=== PATIENT | female | born 1935 | race Caucasian/White ===

== ENCOUNTER 2020-01-26 11:26 | Emergency (ER) | payer MEDICARE, SELFPAY ==
--- NOTE | ~2020-01-26 | XR_ITS ---
EXAMINATION: XR chest 1V portable DATE: 01/26/2020 12:09 INDICATION: Confusion. Altered mental status. TECHNIQUE: frontal view of the chest was obtained. COMPARISON: Chest radiograph dated 01/28/[address] dated 12/04/2017 FINDINGS: Eventration along the left hemidiaphragm. Unchanged mild linear lingular discoid atelectasis/scarring at the lateral left lower lung zone. Small calcified nodule at the left apex consistent with old gra nulomatous disease. No other airspace opacities, pulmonary edema, pleural effusion or pneumothorax. T he cardiomediastinal silhouette is within normal limits for AP technique. Lower thoracic dextrocurvat ure with moderate spondylosis. IMPRESSION: 1. Chronic mild lingular atelectasis/scarring. No other acute cardiopulmonary disease. Reviewed, dictated and finalized at location A. IMPRESSION: 1. Chronic mild lingular atelectasis/scarring. No other acute cardiopulmonary d isease.
--- NOTE | ~2020-01-26 | CT_ITS ---
EXAMINATION: CT brain wo con DATE: 01/26/2020 12:09 INDICATION: Altered mental state. Confusion. Garbled speech. TECHNIQUE: Computed tomography (CT) of the head was performed without intravenous contrast. The mA wa s adjusted according to patient size. Iterative reconstruction technique was employed. Exam dose: 60 5.33 mGy-cm total exam DLP. COMPARISON: None FINDINGS: Bilateral chronic small chronic lacunar infarcts in the region of the anterior limb of each internal capsule. No recent cerebrovascular accident is evident, but CT is not sensitive for detecti on of hyperacute ischemic cerebrovascular accident. There is nonspecific diminished attenuation of the subcortical and periventricular cerebral white mat ter. There are bilateral carotid siphon internal carotid artery calcifications. No intracranial mass lesion or hemorrhage is evident. No midline shift or mass effect. There is moderate cerebellar and cerebral atrophy. No subdural or epidural hematoma. No fracture or bone destruction of the cranial vault. The mastoid air cells and included paranasal sinuses are clear. IMPRESSION: Small chronic lacunar infarcts in the region of the anterior limb of each internal capsu le Cerebral atherosclerosis and chronic small vessel ischemic changes of cerebral white matter No acute intracranial finding is suggested Reviewed, dictated and finalized at Location A. Reviewed, dictated and finalized at location A. IMPRESSION: Small chronic lacunar infarcts in the region of the anterior limb of each internal capsule Cerebral atherosclerosis and chronic small vessel ischemic changes of cerebral white matter No acute intracranial finding is suggested
--- NOTE | 2020-01-26 11:36 | ECG_ITS ---
Measurements Intervals [place] Rate: 61 P: 67 NE: 164 QRS: 45 QRSD: 103 T: 42 QT: 391 QTc: 396 Interpretive Statements SINUS RHYTHM EARLY PRECORDIAL R/S TRANSITION BASELINE ARTIFACT- I, II, III, AVR, AVL, AVF BORDERLINE ECG Electronically Signed On 01-26-2020 12:31:48 CDT by Bridger Mcfarlane D.O.
--- NOTE | 2020-01-26 11:40 | ED.AMS ---
HPI - Altered Mental Status General Chief Complaint: Altered Mental Status Stated Complaint: Ambulance History of Present Illness HPI narrative: Luanne was brought to the ED by EMS for AMS. She was last seen normal at 2100 last night (almost 15 hours ago). Her daughter found her this morning and she was not herself. She is usually A&Ox3. However, she was not making any sense, only knew her first name, clothes were on backwards, objections were out of place and there were many pills on the floor. (history obtained through EMS and calls to the daughter by nursing) PMH: HTN, HLD, Aortic stenosis, osteoporosis, SVT, UTI, GERD, Related Data Home Medications Medication Instructions Recorded Confirmed chlordiazepoxide HCl 5 mg PO TID PRN 01/26/20 01/26/20 gabapentin 300 mg PO QPM 01/26/20 01/26/20 gabapentin 300 mg PO TID 01/26/20 01/26/20 metoprolol tartrate 25 mg PO BID 01/26/20 01/26/20 mirtazapine 30 mg PO HS 01/26/20 01/26/20 Allergies Allergy/AdvReac Type Severity Reaction Status Date / Time No Known Allergies Allergy Verified 01/26/20 11:34 Review of Systems Review of Systems: ROS unobtainable: Yes unobtainable due to mental status PMFSH Social History Social History Gender identity (if verbalized by the patient): Female Exam Const: Nutritional Appearance: average body habitus Orientation/consciousness: confusion Other: No acute distress. Answers questions poorly. Usually just responds with her name. Only knows first name. Does not know last name, date, location but did state she felt good multiple times. HENMT: Head: normocephalic and atraumatic Ears: external ears normal General nose exam: Normal external nose present Mouth: Yes Normal oral and palatal mucosa present Eyes: General: appearance normal, both eyes and all related structures Neck: Neck: normal visual inspection Other: Looks around the room without difficulty Chest: Other: Normal inspection Resp: Effort & Inspection: normal respiratory effort and able to speak in complete sentences Other: Lungs clear to auscultation bilterally, no tachypnea or coughing Cardio: Jugular venous distension: no JVD Rate: regular rate Rhythm: regular rhythm Other: No pitting edema GI: Other: Bowel sounds present, No TTP : Other: No CVA tenderness Back/Spine/Pelvis: Back: no CVA tenderness Other: normal back exam Skin: General skin exam: normal color and no rashes or lesions noted Neuro: General: oriented to person (Only knows first name ) Other: NIH: LOC: Responsive and follows directions but answers make little sense LOC questions: Does not know full name or age LOC Commands: Follows both commands (eye opening and closing and squeezing hands) correctly Best Gaze: Normal Visual: woul not comply with exam due to confusion Facial Palsy: Symmetrical movments Motor arm: no drift Motor leg: no drift Limb Ataxia: would not follow command Sensory: No sensory loss Best langauge: mild to moderate sensory aphasia 1 Dysarthira: mild to moderate dysarthria 1 Neglect: no abnormality Extrem: General: normal to inspection Psych: Appearance: other (very confused ) Course Course Emergency Course: Luanne was seen and evaluated. POC glucose in the field was 133. Ordered labs as below, EKG, CT head and XR chest. EKG showed NSR with a rate of 61, normal axis, No ST elevation/depression CT showed no acute process. Labs and CXR were largly unremarkable except for UDS being positive for benzos. Spoke with Dr. Luna of vascular neurology that recommended transfer by ground EMS for neurology workup. Large vessel occlusion was thought to be very unlikely with BP quickly coming down to 142/78 and no hemiparesis. For this reason he will be seen by the hospitalist and general neurology for AMS. [facility] transfer center called back at [address] Stone is the accepting. I spoke with the daughter Yanira
[2020-01-26 11:43] VITALS: BP 157/90; PULSE 71; RESP 16; TEMP 37.1; O2SAT 96
[2020-01-26 12:00] LABS: Base Excess ABG 2.5 mmol/L (0-2); HCO3 ABG 27.6 mmol/L (23-29); Oxygen Content ABG 16.5 %vol (16.0-22.0); Oxygen Saturation ABG 96.3 % (95-97); PCO2 ABG 44.7 mmHg (35-45); PO2 ABG 77.9 mmHg (75-85); Total Hemoglobin 12.3 g/dL; pH ABG 7.41 (7.35-7.45)
[2020-01-26 12:02] LABS: Basophils Absolute Auto 0.05 K/mm3 (0.00-0.10); Basophils Percent Auto 0.5 % (0.0-1.0); Device ROOM AIR; Eosinophils Absolute Auto 0.11 K/mm3 (0.02-0.50); Eosinophils Percent Auto 1.1 % (1.0-6.0); Hematocrit 36.9 % (35.0-42.0); Hemoglobin 11.9 g/dL (11.7-13.8); Immature Granulocyte Absolute 0.04 K/mm3 (0.00-0.00); Immature Granulocyte Percent A 0.4 % (0.0-0.0); Lymphocytes Absolute Auto 1.74 K/mm3 (1.10-4.50); Lymphocytes Percent Auto 17.1 % (18.0-42.0); Mean Corpuscular HGB Conc 32.2 g/dL (32.0-36.0); Mean Corpuscular Hemoglobin 29.6 pg (27.0-31.0); Mean Corpuscular Volume 91.8 fL (78.0-102.0); Mean Platelet Volume 10.5 fl (9.2-11.8); Modified Allen's Test Pass; Monocytes Percent Auto 4.9 % (2.0-11.0); Neutrophils Absolute Auto 7.7 K/mm3 (1.7-7.2); Platelet Count Result 264 K/mm3 (150-420); Red Blood Count 4.02 M/mm3 (4.20-5.40); Red Cell Distribution Width 14.1 % (11.6-14.4); Site Drawn LEFT RADIAL; White Blood Count 10.2 K/mm3 (4.8-10.8)
[2020-01-26 12:13] LABS: Prothrombin Time 9.9 Seconds (9.64-11.0)
[2020-01-26 12:24] LABS: Lactic Acid Reflex 1.3 mmol/L (0.4-2.0)
--- NOTE | 2020-01-26 12:24 | PC.NURSE ---
NIHSS 8 upon arrival. NIHSS is 2 at this time. no neglect noted on right at this time. tolerated straight cath well. rails ^ bilat. call benites within reach
[2020-01-26 12:25] LABS: Appearance Urine Clear (Clear); Bilirubin Urine Negative (Negative); Color Urine Yellow (Yellow); Glucose Urine UA Negative (Negative); Ketones Urine Negative (Negative); Leukocyte Esterase Ur Negative LEU/UL (Negative); Nitrate Urine Negative (Negative); Protein Urine Negative (Negative); Urobilinogen Urine 0.2 mg/dL (0.2-1.0); pH Urine 6.5 (5.0-8.0)
[2020-01-26 12:27] VITALS: BP 142/78; PULSE 65; RESP 16; O2SAT 98
[2020-01-26 12:27] LABS: Alanine Aminotransferase 23 U/L (14-59); Albumin Level 3.8 g/dL (3.4-5.0); Alkaline Phosphatase 56 U/L (46-116); Ammonia < 10 umol/L (11-32); Anion Gap 9.6 mmol/L (7-16); Aspartate Amino Transferase 21 U/L (15-37); Bilirubin,Total 0.2 mg/dL (0.00-1.00); Blood Urea Nitrogen 10 mg/dL (7-18); Calcium 8.9 mg/dL (8.5-10.1); Carbon Dioxide 33 mmol/L (21-32); Chloride 105 mmol/L (98-108); Creatine Kinase 88 U/L (26-192); Estimated CRCL calculation 46 ml/min; Estimated Glomerular Filt Rate 60; Glucose 102 mg/dL (70-99); Osmolality Calculated 297 mOsm/kg (285-295); Potassium 3.6 mmol/L (3.5-5.1); Sodium 144 mmol/L (136-145); Total Protein 6.9 g/dL (6.4-8.2); Troponin I 0.02 ng/mL (0.00-0.056)
[2020-01-26 12:28] LABS: Acetaminophen 0 ug/mL (10-30); Ethanol < 3 mg/dL (0-6)
[2020-01-26 12:30] LABS: Add Urine Microscopic? YES; Blood Urine Trace-Intact (Negative); RBC Urine None seen /hpf (0-2)
[2020-01-26 12:31] LABS: Bacteria Urine None seen /hpf; Squamous Epithelial Cell Urine Rare /hpf (Few); WBC Urine None seen /hpf (0-3)
[2020-01-26 12:35] LABS: Amphetamine Screen Urine Negative (Negative); Barbiturate Screen Urine Negative (Negative); Benzodiazepines Screen Urine Positive (Negative); Cannabinoid Screen Urine Negative (Negative); Cocaine Screen Urine Negative (Negative); Methadone Screen Urine Negative (Negative); Opiate Screen Urine Negative (Negative); Phencyclidine Screen Urine Negative (Negative)
--- NOTE | 2020-01-26 12:38 | PC.NURSE ---
erp speaking with pts daughters x3 at front entrance
--- NOTE | 2020-01-26 13:02 | PC.NURSE ---
pt repositioned. watching TV at this time. requestiong lunch. erp declined until neuro consult. rails ^ bial.t call benites within reach
--- NOTE | 2020-01-26 13:17 | PC.NURSE ---
erp on phone with daughters discussing plan of care. transfer to [facility] in progress.
[2020-01-26 13:26] VITALS: BP 141/74; PULSE 75; RESP 18; TEMP 36.7; O2SAT 97
--- NOTE | 2020-01-26 13:27 | PC.NURSE ---
pt voided without difficulty per [facility]. transferred well with minimal assist. sitting up in bed eating lunch at this time. no difficulty swallowing. no cough noted.
--- NOTE | 2020-01-26 14:05 | PC.NURSE ---
report called to rn at [facility]. family notified. ems called out. no change in pt condition...remains confused. vss.
[2020-01-26 14:07] VITALS: BP 145/86; PULSE 74; RESP 16; O2SAT 99
[2020-01-26 14:30] VITALS: BP 145/86; PULSE 74; RESP 16; O2SAT 99
== END 2020-01-26 14:30 | disposition short-term general hospital (02) ==
PROVIDERS: Emergency Provider Family Medicine; PCP Internal Medicine
DX: R41.82 Altered mental status, unspecified (principal); I10 Essential (primary) hypertension; E78.5 Hyperlipidemia, unspecified; M81.0 Age-related osteoporosis without current pathological fracture; Z79.899 Other long term (current) drug therapy
CPT/HCPCS: 36415; 36600; 51701; 70450; 71045; 80053; 80307; 81001; 82140; 82550; 82805; 83605; 84443; 84484; 85025; 85610; 87040; 93005; 99283; 99285

== ENCOUNTER 2020-05-31 12:42 | Outpatient (CLI) | payer MEDICARE, SELFPAY ==
[2020-05-31] MEDS: DENOSUMAB 60 MG/ML SYRINGE SUB-Q (13:00)
== END 2020-05-31 12:43 | disposition home or self-care (01) ==
LOC: CHSTREATRM 12:47
PROVIDERS: PCP Internal Medicine; Visit Provider Internal Medicine
DX: M81.0 Age-related osteoporosis without current pathological fracture (principal)
CPT/HCPCS: 96372; J0897

== ENCOUNTER 2020-07-15 08:53 | Emergency (ER) | payer MEDICARE, SELFPAY ==
[2020-07-15 09:22] VITALS: BP 110/60; PULSE 64; RESP 16; TEMP 36.6; O2SAT 98
[2020-07-15 09:44] LABS: Add Urine Microscopic? YES; Appearance Urine Clear (Clear); Bilirubin Urine Negative (Negative); Blood Urine 3+ (Negative); Color Urine Red (Yellow); Glucose Urine UA Negative (Negative); Ketones Urine Negative (Negative); Leukocyte Esterase Ur 3+ (Negative); Nitrate Urine Positive (Negative); Protein Urine 2+ (Negative); Specific Grav Ur <= 1.005 (1.010-1.020); Urobilinogen Urine 0.2 mg/dL (0.2-1.0); pH Urine 6.5 (5.0-8.0)
[2020-07-15 09:49] LABS: Bacteria Urine 4+ /hpf; RBC Urine >75 /hpf (0-2); Squamous Epithelial Cell Urine Few /hpf (Few); WBC Urine >75 /hpf (0-3)
--- NOTE | 2020-07-15 09:55 | ED.FEMALEGU ---
HPI - Female Genitourinary General Chief complaint: Urogenital-Female Stated complaint: possible bladder infection Source: patient Mode of arrival: ambulatory History of Present Illness HPI Narrative: this is an 85-year-old female with symptoms of dysuria with an episode of hematuria with suprapubic pressure with no flank pain no fever chills no nausea vomiting has a history of hypertension well controlled. Currently there is no shortness of breath no chest pain or pressure no diarrhea constipation. MD elicited complaint: dysuria Severity: mild Female Urogenital Radiation: Non-Radiating Urinary symptoms: Dysuria and Frequency Associated symptoms: denies other symptoms Related Data Home Medications Medication Instructions Recorded Confirmed chlordiazepoxide HCl 5 mg PO TID PRN 01/26/20 07/15/20 gabapentin [Neurontin] 300 mg PO QPM 01/26/20 07/15/20 metoprolol tartrate 25 mg PO BID 01/26/20 07/15/20 mirtazapine [Remeron] 30 mg PO HS 01/26/20 07/15/20 Allergies Allergy/AdvReac Type Severity Reaction Status Date / Time No Known Allergies Allergy Verified 01/26/20 11:34 Review of Systems Review of Systems: All systems reviewed & are unremarkable except as noted in HPI and below PMFSH Past Medical History Medical History HTN (hypertension) Social History Social History Gender identity (if verbalized by the patient): Female Exam Const: General: no acute distress and alert Orientation/consciousness: patient oriented x3 HENMT: Head: normal to inspection Eyes: Conjunctivae: conjunctivae normal Pupils: Equal, round and reactive pupils present EOM: EOMs intact bilaterally Direct Ophthalmoscopy: no photophobia Neck: Neck: normal visual inspection, no lymphadenopathy and no meningeal signs Chest: Chest palpation & inspection: normal inspection of the chest Resp: Effort & Inspection: normal respiratory effort Cardio: Rate: regular rate Rhythm: regular rhythm GI: GI Palp: Yes Soft to palpation Other: suprapubic pain with palpation : General: Yes no CVA tenderness Urinary Catheter: Urinary Catheter: patent and draining and urine cloudy Back/Spine/Pelvis: Back: no CVA tenderness Skin: General skin exam: normal color Rashes: no rashes Neuro: General: patient oriented x3 Extrem: General: normal to inspection Psych: Mental Status: mental status grossly normal Affect: normal affect Course Course Emergency Course: reassessment patient appears comfortable some mild discomfort suprapubic area with no flank pain no fever chills patient has you had urinary tract infection and send antibiotics to her pharmacy. Vital Signs Vital signs: Vital Signs Temperature 36.6 C 07/15/20 09:22 Pulse Rate 64 07/15/20 09:22 Respiratory Rate 16 07/15/20 09:22 Blood Pressure 110/60 07/15/20 09:22 Pulse Oximetry 98 07/15/20 09:22 Temperature 36.6 C 07/15/20 09:22 Pulse Rate 64 07/15/20 09:22 Respiratory Rate 16 07/15/20 09:22 Blood Pressure 110/60 07/15/20 09:22 Pulse Oximetry 98 07/15/20 09:22 MDM - Female Genitourinary Lab Data Labs: Lab Results 07/15/20 Range/Units 09:40 Urine Color Red A (Yellow) Urine Appearance Clear (Clear) Urine pH 6.5 (5.0-8.0) Ur Specific [place] <= 1.005 L (1.010-1.020) Urine Protein 2+ H (Negative) Urine Glucose (UA) Negative (Negative) Urine Ketones Negative (Negative) Ur Blood (Man) 3+ H (Negative) Urine Nitrate Positive H (Negative) Urine Bilirubin Negative (Negative) Urine Urobilinogen 0.2 (0.2-1.0) mg/dL Ur Leukocyte Esterase 3+ H (Negative) Urine RBC >75 H (0-2) /hpf Urine WBC >75 H (0-3) /hpf Ur Squamous Epith Cells Few (Few) /hpf Urine Bacteria 4+ H (None) /hpf Critical Care Time Critical Care Time Critical Care Time: No Discharge Plan Dischar
[2020-07-15 10:12] VITALS: BP 108/70; PULSE 70; RESP 16; TEMP 36.2; O2SAT 95
== END 2020-07-15 10:13 | disposition home or self-care (01) ==
PROVIDERS: Emergency Provider Emergency Medicine; PCP Internal Medicine
DX: N39.0 Urinary tract infection, site not specified (principal); I10 Essential (primary) hypertension
CPT/HCPCS: 81001; 99283

== ENCOUNTER 2020-08-06 09:12 | Outpatient (CLI) | payer MEDICARE, SELFPAY | END 2020-08-06 09:13 | disposition home or self-care (01) | LOC: CHSLAB 09:14 | PROVIDERS: PCP Internal Medicine; Visit Provider Internal Medicine | DX: R19.7 Diarrhea, unspecified (principal) | CPT/HCPCS: 87324 ==

== ENCOUNTER 2020-09-13 07:08 | Outpatient (CLI) | payer MEDICARE, SELFPAY ==
[2020-09-13 07:19] LABS: Hematocrit 40.1 % (35.0-42.0); Hemoglobin 12.6 g/dL (11.7-13.8); Mean Corpuscular HGB Conc 31.4 g/dL (32.0-36.0); Mean Corpuscular Hemoglobin 29.4 pg (27.0-31.0); Mean Corpuscular Volume 93.7 fL (78.0-102.0); Mean Platelet Volume 10.1 fl (9.2-11.8); Platelet Count Result 241 K/mm3 (150-420); Red Blood Count 4.28 M/mm3 (4.20-5.40); Red Cell Distribution Width 14.2 % (11.6-14.4); White Blood Count 9.5 K/mm3 (4.8-10.8)
[2020-09-13 08:15] LABS: Total Cells Counted 100
[2020-09-13 08:16] LABS: Atypical Lymphocytes Present; Band Neutrophils Percent 0 % (0-6); Basophils Percent Manual 0 % (0-1); Eosinophils Percent Manual 19 % (1-6); Monocytes Absolute Manual 0.66 K/mm3 (0.1-0.90); Monocytes Percent Manual 7 % (3-9); Neutrophils Percent Manual 39 % (46-73)
[2020-09-13 08:17] LABS: Lymphocytes Absolute Manual 3.32 K/mm3 (1.1-4.5); Lymphocytes Percent Manual 35 % (18-44)
[2020-09-13 08:54] LABS: Alanine Aminotransferase 22 U/L (14-59); Albumin Level 3.9 g/dL (3.4-5.0); Alkaline Phosphatase 60 U/L (46-116); Anion Gap 9 mmol/L (8-16); Aspartate Amino Transferase 18 U/L (15-37); Bilirubin,Total 0.3 mg/dL (0.00-1.00); Blood Urea Nitrogen 13 mg/dL (7-18); Carbon Dioxide 29 mmol/L (21-32); Chloride 107 mmol/L (98-108); Cholesterol 150 mg/dL (0-200); Creatine Kinase 103 U/L (26-192); Estimated Glomerular Filt Rate > 60; Glucose 96 mg/dL (70-99); HDL Direct 71 mg/dL (40-60); LDL Cholesterol Calculated 59 mg/dL (<130); Osmolality Calculated 300 mOsm/kg (285-295); Potassium 3.9 mmol/L (3.5-5.1); Sodium 145 mmol/L (136-145); Total Protein 6.7 g/dL (6.4-8.2); Triglycerides 100 mg/dL (0-150); Vitamin B12 885 pg/mL (193-986)
[2020-09-13 09:30] LABS: Platelet Estimate Adequate (Adequate)
[2020-09-13 10:26] LABS: Add Urine Microscopic? YES; Appearance Urine Cloudy (Clear); Bilirubin Urine Negative (Negative); Blood Urine 1+ (Negative); Color Urine Straw (Yellow); Glucose Urine UA Negative (Negative); Ketones Urine Negative (Negative); Leukocyte Esterase Ur 3+ (Negative); Nitrate Urine Positive (Negative); Protein Urine Trace (Negative); Specific Grav Ur 1.015 (1.010-1.020); Urobilinogen Urine 0.2 mg/dL (0.2-1.0); pH Urine 6.5 (5.0-8.0)
[2020-09-13 10:35] LABS: Bacteria Urine 1+ /hpf; RBC Urine None seen /hpf (0-2); Squamous Epithelial Cell Urine Few /hpf (Few); WBC Urine 16-20 /hpf (0-3)
[2020-09-19 13:09] LABS: Vitamin D 25 Hydroxy 27 ng/mL (30-100)
== END 2020-09-13 07:09 | disposition home or self-care (01) ==
LOC: CHSLAB 07:10
PROVIDERS: PCP Internal Medicine; Visit Provider Internal Medicine
DX: E78.2 Mixed hyperlipidemia (principal); I10 Essential (primary) hypertension; M81.0 Age-related osteoporosis without current pathological fracture; I47.1 Supraventricular tachycardia; E53.8 Deficiency of other specified B group vitamins; N30.00 Acute cystitis without hematuria
CPT/HCPCS: 36415; 80053; 80061; 81001; 82306; 82550; 82607; 85025; 87077; 87086; 87088; 87186

== ENCOUNTER 2020-11-15 11:28 | Outpatient (CLI) | payer MEDICARE, SELFPAY ==
--- NOTE | ~2020-11-15 | XR_ITS ---
EXAMINATION: XR chest 2V DATE: 11/15/2020 12:28 INDICATION: Left chest pain. TECHNIQUE: Frontal and lateral views of the chest were obtained. COMPARISON: Chest single view 01/26/2020 FINDINGS: There is mild atelectasis in left lower lung zone. No pleural effusion or pneumothorax. Car diomegaly is noted. IMPRESSION: 1. Mild atelectasis in left lower lung zone. 2. Cardiomegaly. Reviewed, dictated and finalized at location A. E HAND
[2020-11-15 11:45] LABS: Basophils Absolute Auto 0.05 K/mm3 (0.00-0.10); Basophils Percent Auto 0.6 % (0.0-1.0); Eosinophils Absolute Auto 0.72 K/mm3 (0.02-0.50); Eosinophils Percent Auto 8.1 % (1.0-6.0); Hematocrit 36.1 % (35.0-42.0); Hemoglobin 11.4 g/dL (11.7-13.8); Immature Granulocyte Absolute 0.03 K/mm3 (0.00-0.00); Immature Granulocyte Percent A 0.3 % (0.0-0.0); Lymphocytes Absolute Auto 2.76 K/mm3 (1.10-4.50); Lymphocytes Percent Auto 30.9 % (18.0-42.0); Mean Corpuscular HGB Conc 31.6 g/dL (32.0-36.0); Mean Corpuscular Hemoglobin 29.4 pg (27.0-31.0); Mean Platelet Volume 9.7 fl (9.2-11.8); Monocytes Absolute Auto 0.66 K/mm3 (0.10-0.90); Monocytes Percent Auto 7.4 % (2.0-11.0); Neutrophils Absolute Auto 4.7 K/mm3 (1.7-7.2); Neutrophils Percent Auto 52.7 % (50.0-70.0); Platelet Count Result 292 K/mm3 (150-420); Red Blood Count 3.88 M/mm3 (4.20-5.40); Red Cell Distribution Width 14.4 % (11.6-14.4); White Blood Count 8.9 K/mm3 (4.8-10.8)
--- NOTE | 2020-11-15 11:52 | ECG_ITS ---
Measurements Intervals [place] Rate: 68 P: 76 NH: 155 QRS: 42 QRSD: 106 T: 43 QT: 367 QTc: 393 Interpretive Statements SINUS RHYTHM ST ELEVATION IN LATERAL LEADS- PROBABLY EARLY REPOLARIZATION BASELINE ARTIFACT- I, II, III, AVF BORDERLINE ECG Electronically Signed On 11-15-2020 12:07:36 [employer] by Bridger Mcfarlane D.O.
[2020-11-15 12:10] LABS: Alanine Aminotransferase 26 U/L (14-59); Albumin Level 3.5 g/dL (3.4-5.0); Alkaline Phosphatase 50 U/L (46-116); Anion Gap 7 mmol/L (8-16); Aspartate Amino Transferase 24 U/L (15-37); Bilirubin,Total 0.3 mg/dL (0.00-1.00); Blood Urea Nitrogen 14 mg/dL (7-18); Calcium 9.8 mg/dL (8.5-10.1); Carbon Dioxide 32 mmol/L (21-32); Chloride 104 mmol/L (98-108); Creatine Kinase 179 U/L (26-192); Estimated Glomerular Filt Rate 52; Glucose 95 mg/dL (70-99); Osmolality Calculated 296 mOsm/kg (285-295); Potassium 4.1 mmol/L (3.5-5.1); Sodium 143 mmol/L (136-145); Total Protein 6.6 g/dL (6.4-8.2); Troponin I 8.1 ng/L (0.00-60.4)
[2020-11-17 20:39] LABS: H pylori, Urea Breath NOT DETECTED (NOT DETECTED)
== END 2020-11-15 11:29 | disposition home or self-care (01) ==
LOC: CHSLAB 11:31
PROVIDERS: PCP Internal Medicine; Visit Provider Internal Medicine
DX: R07.9 Chest pain, unspecified (principal); R10.13 Epigastric pain
CPT/HCPCS: 36415; 71046; 80053; 82550; 82553; 83013; 84484; 85025; 93005

== ENCOUNTER 2020-12-04 13:11 | Outpatient (CLI) | payer MEDICARE, SELFPAY ==
--- NOTE | 2020-12-04 13:20 | PC.NURSE ---
Here for SQ injection, administered and tolerated well, ambulatory upon discharge to home
[2020-12-04] MEDS: DENOSUMAB 60 MG/ML SYRINGE SUB-Q (13:25)
== END 2020-12-04 13:12 | disposition home or self-care (01) ==
LOC: CHSTREATRM 13:14
PROVIDERS: PCP Internal Medicine; Visit Provider Internal Medicine
DX: M81.0 Age-related osteoporosis without current pathological fracture (principal)
CPT/HCPCS: 96372; J0897

== ENCOUNTER 2021-02-17 07:34 | Outpatient (CLI) | payer MEDICARE, SELFPAY ==
[2021-02-17 07:50] LABS: Basophils Absolute Auto 0.04 K/mm3 (0.00-0.10); Basophils Percent Auto 0.5 % (0.0-1.0); Eosinophils Absolute Auto 0.73 K/mm3 (0.02-0.50); Eosinophils Percent Auto 8.7 % (1.0-6.0); Hematocrit 39.9 % (35.0-42.0); Hemoglobin 12.4 g/dL (11.7-13.8); Immature Granulocyte Absolute 0.02 K/mm3 (0.00-0.00); Immature Granulocyte Percent A 0.2 % (0.0-0.0); Lymphocytes Absolute Auto 2.77 K/mm3 (1.10-4.50); Mean Corpuscular HGB Conc 31.1 g/dL (32.0-36.0); Mean Corpuscular Hemoglobin 28.8 pg (27.0-31.0); Mean Corpuscular Volume 92.6 fL (78.0-102.0); Mean Platelet Volume 10.9 fl (9.2-11.8); Monocytes Absolute Auto 0.58 K/mm3 (0.10-0.90); Monocytes Percent Auto 6.9 % (2.0-11.0); Neutrophils Absolute Auto 4.3 K/mm3 (1.7-7.2); Neutrophils Percent Auto 50.7 % (50.0-70.0); Platelet Count Result 244 K/mm3 (150-420); Red Blood Count 4.31 M/mm3 (4.20-5.40); Red Cell Distribution Width 14.6 % (11.6-14.4); White Blood Count 8.4 K/mm3 (4.8-10.8)
[2021-02-17 08:00] LABS: Appearance Urine Sl Cloudy (Clear); Color Urine Light Yellow (Yellow); Glucose Urine UA Negative (Negative); Ketones Urine Negative (Negative); Protein Urine Negative (Negative); Specific Grav Ur 1.015 (1.010-1.020)
[2021-02-17 08:01] LABS: Add Urine Microscopic? YES; Bacteria Urine 1+ /hpf; Bilirubin Urine Negative (Negative); Blood Urine Negative (Negative); Leukocyte Esterase Ur Trace (Negative); Nitrate Urine Negative (Negative); RBC Urine None seen /hpf (0-2); Squamous Epithelial Cell Urine Moderate /hpf (Few); Urobilinogen Urine Negative mg/dL (0.2-1.0); WBC Urine 0-3 /hpf (0-3)
[2021-02-17 08:56] LABS: Alanine Aminotransferase 26 U/L (14-59); Albumin Level 3.7 g/dL (3.4-5.0); Alkaline Phosphatase 53 U/L (46-116); Anion Gap 7 mmol/L (8-16); Aspartate Amino Transferase 18 U/L (15-37); Bilirubin,Total 0.5 mg/dL (0.00-1.00); Blood Urea Nitrogen 12 mg/dL (7-18); Carbon Dioxide 33 mmol/L (21-32); Chloride 107 mmol/L (98-108); Cholesterol 148 mg/dL (0-200); Creatine Kinase 121 U/L (26-192); Estimated Glomerular Filt Rate > 60; Glucose 90 mg/dL (70-99); HDL Direct 66 mg/dL (40-60); LDL Cholesterol Calculated 67 mg/dL (<130); Osmolality Calculated 303 mOsm/kg (285-295); Potassium 3.6 mmol/L (3.5-5.1); Sodium 147 mmol/L (136-145); Total Protein 6.3 g/dL (6.4-8.2); Triglycerides 75 mg/dL (0-150)
[2021-02-20 14:09] LABS: Vitamin D 25 Hydroxy 34 ng/mL (30-100)
== END 2021-02-17 07:35 | disposition home or self-care (01) ==
PROVIDERS: PCP Internal Medicine; Visit Provider Internal Medicine
DX: I47.1 Supraventricular tachycardia (principal); I10 Essential (primary) hypertension; N39.0 Urinary tract infection, site not specified; E55.9 Vitamin D deficiency, unspecified
CPT/HCPCS: 36415; 80053; 80061; 81001; 82306; 82550; 85025; 87077; 87086; 87088; 87186

== ENCOUNTER 2021-03-26 07:40 | Emergency (ER) | payer MEDICARE, SELFPAY ==
--- NOTE | ~2021-03-26 | XR_ITS ---
EXAMINATION: XR abdomen/kub 1V INDICATION: Constipation and abdominal pain TECHNIQUE: Supine views of the abdomen were obtained on 2 radiographs. COMPARISON: None FINDINGS: There is a moderate volume of colonic stool. Lumbar levoscoliosis is noted. No dilated loop s of bowel are evident. There are phleboliths in the pelvis. IMPRESSION: 1. Constipation. Reviewed, dictated and finalized at location B. IMPRESSION: 1. Constipation.
[2021-03-26 07:45] VITALS: BP 163/80; PULSE 61; RESP 18; TEMP 36.7; O2SAT 97
--- NOTE | 2021-03-26 08:02 | ED.GENADULT ---
HPI - General Adult General Chief complaint: Unspecified Stated complaint: no bowel movement for 10 days Time Seen by Provider: 03/26/21 08:02 History of Present Illness HPI narrative: 86-year-old female patient presents to ER with complaints of not having had a bowel movement for the last 10 days. The patient states that she does passed gas and has had very small amount of stool. She feels that she is severely constipated. She denies any associated abdominal pain except for the feeling of fullness. She has had no nausea or vomiting. Her appetite has been good. States that her food intake has been moderate. Patient denies any associated fever or chills. Patient denies any urinary symptoms at this time. She reports no prior abdominal surgeries except for a vaginal hysterectomy in the remote past. Related Data Home Medications Medication Instructions Recorded Confirmed chlordiazepoxide HCl 5 mg PO TID PRN 01/26/20 03/26/21 gabapentin [Neurontin] 300 mg PO QPM 01/26/20 03/26/21 metoprolol tartrate 25 mg PO BID 01/26/20 03/26/21 mirtazapine [Remeron] 30 mg PO HS 01/26/20 03/26/21 aspirin 81 mg tablet,delayed 81 mg PO DAILY 11/22/20 03/26/21 release atorvastatin 20 mg tablet 20 mg PO DAILY 11/22/20 03/26/21 conjugated estrogens 0.625 mg/gram 0.625 mg VAGINAL DAILY 11/22/20 03/26/21 vaginal cream cyanocobalamin (vitamin B-12) 1,000 mcg PO DAILY 11/22/20 03/26/21 1,000 mcg capsule denosumab 60 mg/mL subcutaneous 60 mg SUBCUT [id number] 11/22/20 03/26/21 syringe hydrocortisone acetate 25 mg 25 mg RECTAL DAILY 11/22/20 03/26/21 rectal suppository lisinopril 2.5 mg tablet 2.5 mg PO DAILY 11/22/20 03/26/21 omeprazole 20 mg capsule,delayed 20 mg PO DAILY 01/01/21 03/26/21 release Allergies Allergy/AdvReac Type Severity Reaction Status Date / Time No Known Allergies Allergy Verified 01/01/21 13:17 Review of Systems Review of Systems: All systems reviewed & are unremarkable except as noted in HPI and below Constitutional: Constitutional: Reports as per HPI Eyes: Eyes: Reports no additional eye complaints ENT: Reports system reviewed and no additional complaints, except as documented Cardiovascular: Cardiovascular: Reports no additional cardiovascular complaints Respiratory: Respiratory: Reports no additional respiratory complaints Gastrointestinal: Gastrointestinal: Reports as per HPI and Reports no additional gastrointestinal complaints Genitourinary: Genitourinary: Reports no additional female genitourinary complaints Musculoskeletal: Musculoskeletal: Reports no additional musculoskeletal complaints Integumentary/Breasts: Skin/Breast: Reports system reviewed and no additional complaints, except as docu Neurologic: Reports system reviewed and no additional complaints, except as documented Psychiatric: Psychiatric: Reports no additional psychiatric complaints Endocrine: Endocrine: Reports no additional endocrine complaints Hematologic/Lymphatic: Hematologic/Lymphatic: Reports no additional hematologic/lymphatic complaints Allergic/Immunologic: Allergic/Immunologic: Reports no additional allergic/immunologic complaints [facility] Past Medical History Medical History Age-related osteoporosis without current pathological fracture Cerebral infarction Chest pain Dysthymic disorder GERD (gastroesophageal reflux disease) HTN (hypertension) Insomnia due to other mental disorder Low back pain Mixed hyperlipidemia Mixed irritable bowel syndrome Nonrheumatic aortic (valve) stenosis Occlusion and stenosis of bilateral carotid arteries Personal history of colonic polyps Personal history UTI Postmenopausal atrophic vaginitis Thoracic aortic aneurysm without rupture Vitamin D deficiency, unspecified Surgical History Surgical History History of colon resection History of colonoscopy History of hysterectomy
--- NOTE | 2021-03-26 09:21 | PC.NURSE ---
pt to floor room 202 for soap suds enema. pt to floor per wheelchair with prabhjot porter. report to 2nd floor nurse KATLYN Mulligan.
--- NOTE | 2021-03-26 09:30 | PC.NURSE ---
SSE 1000ml set up and administered about 1/4 of bag, unable to retain, up to commode with about 5 small hard pieces of round stool noted
--- NOTE | 2021-03-26 09:40 | PC.NURSE ---
another 300ml administered of SSe, unable to retain, up to commode with about 4 larger pieces of hard stool passed,
--- NOTE | 2021-03-26 09:50 | PC.NURSE ---
remaining 500 ml of SSE administered, unable to retain liquid, up to commode with assistance
--- NOTE | 2021-03-26 09:58 | PC.NURSE ---
only 1 small piece of hard round stool obtained, set up for another 500ml of SSE, only able to retain about 1/2 of this and then wanted up to commode
--- NOTE | 2021-03-26 10:30 | PC.NURSE ---
SSE 250 ml, unable to retain any more at this time,
--- NOTE | 2021-03-26 10:40 | PC.NURSE ---
Up to commode, 1 small softer stool noted
--- NOTE | 2021-03-26 10:57 | PC.NURSE ---
Remainder of SSE administered, unable to retain much fluid, up to commode immediately
--- NOTE | 2021-03-26 11:06 | PC.NURSE ---
very small ribbon like stool with one more solid small round stool noted, Report to ED provider, advised to wait 30 min and attempt one more bag of SSE
--- NOTE | 2021-03-26 11:30 | PC.NURSE ---
report to KATLYN Casey
--- NOTE | 2021-03-26 11:33 | PC.NURSE ---
SSE administered, approx 300ml infused then could not tolerate any more, noted fluid immediately leaking out, up to commode
--- NOTE | 2021-03-26 11:41 | PC.NURSE ---
Moderate amount of soft stool in commode, remainder of SSE administered when got back to bed, then immediately up to commode, cannot retain liquid much at all
--- NOTE | 2021-03-26 11:48 | PC.NURSE ---
Up to commode, only a small amount of mucous type water with minimal flecks of stool noted at this time, report to ED
--- NOTE | 2021-03-26 11:51 | PC.NURSE ---
Dr Santiago, ok to DC home, to make sure she takes a stool softener daily
--- NOTE | 2021-03-26 12:17 | PC.NURSE ---
Assisted to dress and taken back to ED for discharge
[2021-03-26 12:28] VITALS: RESP 16
== END 2021-03-26 12:29 | disposition home or self-care (01) ==
PROVIDERS: Emergency Provider Emergency Medicine; PCP Internal Medicine
DX: K59.00 Constipation, unspecified (principal); I10 Essential (primary) hypertension; K21.9 Gastro-esophageal reflux disease without esophagitis; E78.2 Mixed hyperlipidemia
CPT/HCPCS: 74018; 99282; 99283

== ENCOUNTER 2021-05-07 07:09 | Outpatient (CLI) | payer MEDICARE, SELFPAY ==
--- NOTE | ~2021-05-07 | CT_ITS ---
EXAMINATION: CT diagnostic chest w con DATE: 05/07/2021 07:57 INDICATION: Thoracic aortic aneurysm TECHNIQUE: Transaxial computed tomographic images of the chest were obtained after the administration of 75 cc of Omnipaque 350 intravenous contrast. The dose-length product (DLP) was 124.83 mGy-cm. Ite rative reconstruction was used. COMPARISON: 12/04/2017 FINDINGS: There is fusiform enlargement of the ascending aorta which measures 4.3 x 3.8 cm at the lev el of the main pulmonary artery. The ascending aorta measures 3.7 x 3.2 cm at the level of the sinuse s of Valsalva. There is no dissection. The pulmonary arteries are well-opacified. No pulmonary emboli sm is identified. There is no pleural effusion or pneumothorax. The lungs are free of acute opacities . No pathologically enlarged thoracic lymph nodes are identified. The heart size is normal. There is moderate thoracic spondylosis. IMPRESSION: 1. Stable fusiform dilation of the ascending aorta without dissection. Reviewed, dictated and finalized at location A.
[2021-05-07 07:33] LABS: Estimated Glomerular Filt Rate 59
== END 2021-05-07 07:10 | disposition home or self-care (01) ==
LOC: CHSIMG 07:10
PROVIDERS: PCP Internal Medicine; Visit Provider Internal Medicine
DX: I71.2 Thoracic aortic aneurysm, without rupture (principal)
CPT/HCPCS: 71260; Q9967

== ENCOUNTER 2021-08-10 08:00 | Outpatient (CLI) | payer MEDICARE, SELFPAY ==
[2021-08-10 08:18] LABS: Basophils Absolute Auto 0.04 K/mm3 (0.00-0.10); Basophils Percent Auto 0.4 % (0.0-1.0); Eosinophils Absolute Auto 0.59 K/mm3 (0.02-0.50); Eosinophils Percent Auto 6.5 % (1.0-6.0); Hematocrit 39.6 % (35.0-42.0); Hemoglobin 12.4 g/dL (11.7-13.8); Immature Granulocyte Absolute 0.04 K/mm3 (0.00-0.00); Immature Granulocyte Percent A 0.4 % (0.0-0.0); Lymphocytes Absolute Auto 2.74 K/mm3 (1.10-4.50); Lymphocytes Percent Auto 30.4 % (18.0-42.0); Mean Corpuscular HGB Conc 31.3 g/dL (32.0-36.0); Mean Corpuscular Hemoglobin 29.3 pg (27.0-31.0); Mean Corpuscular Volume 93.6 fL (78.0-102.0); Mean Platelet Volume 11.2 fl (9.2-11.8); Monocytes Absolute Auto 0.58 K/mm3 (0.10-0.90); Monocytes Percent Auto 6.4 % (2.0-11.0); Neutrophils Percent Auto 55.9 % (50.0-70.0); Platelet Count Result 252 K/mm3 (150-420); Red Blood Count 4.23 M/mm3 (4.20-5.40); Red Cell Distribution Width 14.5 % (11.6-14.4)
[2021-08-10 09:27] LABS: Alanine Aminotransferase 23 U/L (14-59); Albumin Level 3.5 g/dL (3.4-5.0); Alkaline Phosphatase 61 U/L (46-116); Anion Gap 9 mmol/L (8-16); Aspartate Amino Transferase 20 U/L (15-37); Bilirubin,Total 0.4 mg/dL (0.00-1.00); Blood Urea Nitrogen 16 mg/dL (7-18); Carbon Dioxide 31 mmol/L (21-32); Chloride 108 mmol/L (98-108); Cholesterol 137 mg/dL (0-200); Estimated Glomerular Filt Rate 57; Glucose 99 mg/dL (70-99); HDL Direct 57 mg/dL (40-60); LDL Cholesterol Calculated 64 mg/dL (<130); Osmolality Calculated 307 mOsm/kg (285-295); Potassium 3.7 mmol/L (3.5-5.1); Sodium 148 mmol/L (136-145); Total Protein 6.2 g/dL (6.4-8.2); Triglycerides 81 mg/dL (0-150); Vitamin B12 452 pg/mL (193-986)
[2021-08-10 11:06] LABS: Add Urine Microscopic? YES; Appearance Urine Clear (Clear); Bilirubin Urine Negative (Negative); Blood Urine Negative (Negative); Color Urine Light Yellow (Yellow); Glucose Urine UA Negative (Negative); Ketones Urine Negative (Negative); Leukocyte Esterase Ur 1+ LEU/UL (Negative); Nitrate Urine Negative (Negative); Protein Urine Trace (Negative); Urobilinogen Urine 0.2 mg/dL (0.2-1.0); pH Urine 6.5 (5.0-8.0)
[2021-08-10 11:34] LABS: Bacteria Urine 3+ /hpf; Mucus Urine Moderate /lpf; RBC Urine None seen /hpf (0-2); Squamous Epithelial Cell Urine Moderate /hpf (Few)
[2021-08-14 11:22] LABS: Vitamin D 25 Hydroxy 37 ng/mL (30-100)
== END 2021-08-10 08:01 | disposition home or self-care (01) ==
PROVIDERS: PCP Internal Medicine; Visit Provider Internal Medicine
DX: M81.0 Age-related osteoporosis without current pathological fracture (principal); I10 Essential (primary) hypertension; E78.2 Mixed hyperlipidemia; I47.1 Supraventricular tachycardia; E53.8 Deficiency of other specified B group vitamins; N30.00 Acute cystitis without hematuria
CPT/HCPCS: 36415; 80053; 80061; 81001; 82306; 82607; 85025; 87086

== ENCOUNTER 2021-11-13 13:36 | Outpatient (CLI) | payer MEDICARE, SELFPAY ==
--- NOTE | ~2021-11-13 | DEXA_ITS ---
Bone Density Report Name: BRENDA WILSON Age: 86 Sex: Female Ethnicity: White Date of : 1935 Indication: postmenopausal; screening for osteoporosis; height loss; hysterectomy; Referring Provider: [facility] Study: Bone densitometry was performed. Exam Date: November 13, 2021 Accession number: [id number] Bone Density: Region BMD T-score Z-score Classification AP Spine(L1, L3, L4) 0.823 -2.1 0.8 Osteopenia Femoral Neck (Left) 0.575 -2.5 0.0 Osteoporosis Total Hip (Left) 0.676 -2.2 0.1 Osteopenia Femoral Neck (Right) 0.607 -2.2 0.3 Osteopenia Total Hip (Right) 0.684 -2.1 0.2 Osteopenia Femoral Neck Mean 0.591 -2.3 0.2 Osteopenia Total Hip Mean 0.680 -2.2 0.2 Osteopenia World Health Organization criteria for BMD impression classify patients as: Normal (T-score at or above -1.0), Osteopenia (T-score between -1.0 and -2.5), or Osteoporosis (T-score at or below -2.5). 10-year Fracture Risk: FRAX not reported because: Some T-score for Spine Total or Hip Total or Femoral Neck at or below -2.5 Treated for osteoporosis Clinical Information Provided by Patient: Is being treated for osteoporosis Has used the following medications: Prolia (i.e. denosumab), Vitamin D, Calcium Has the following medical conditions: Hysterectomy Patient maximum height was 68 Menopause Age: 52 No regular weight bearing exercise Onset of menses at age 15 Number of children 3 Impression: The patient has osteoporosis, based on the Left Femoral Neck T-score. Discussion: It is important to ask patients whether they are taking their medications and to encourage continued and appropriate compliance with their osteoporosis therapies to reduce fracture risk. It is also important to review their risk factors and encourage appropriate calcium and vitamin D intakes, exercise, fall prevention and other lifestyle measures. Follow-Up: Consider a repeat BMD and Vertebral Fracture Assessment (VFA) exam in 2 years or sooner if medically necessary, to reassess this patient's status. Reported by: Dr. Jeff Saavedra on 11/13/2021 2:12:00 PM. Reviewed, dictated and finalized at location A.
== END 2021-11-13 13:37 | disposition home or self-care (01) ==
LOC: CHSIMG 13:37
PROVIDERS: PCP Internal Medicine; Visit Provider Internal Medicine
DX: M81.0 Age-related osteoporosis without current pathological fracture (principal)
CPT/HCPCS: 77080

== ENCOUNTER 2021-12-18 12:47 | Outpatient (CLI) | payer MEDICARE, SELFPAY ==
[2021-12-18 13:00] VITALS: BMI 22.9
[2021-12-18 13:03] VITALS: BP 127/67; PULSE 56; RESP 14; TEMP 36.6; O2SAT 97
[2021-12-18] MEDS: DENOSUMAB 60 MG/ML SYRINGE SUB-Q (13:04)
--- NOTE | 2021-12-18 13:06 | PC.NURSE ---
Patient here for Prolia injection. Education on med given. No concerns voiced. Prolia injection administered. Tolerated well. Safe exit of hospital.
== END 2021-12-18 12:48 | disposition home or self-care (01) ==
LOC: CHSTREATRM 12:51
PROVIDERS: PCP Internal Medicine; Visit Provider Internal Medicine
DX: M81.0 Age-related osteoporosis without current pathological fracture (principal)
CPT/HCPCS: 96372; J0897

== ENCOUNTER 2022-01-17 13:50 | Outpatient (CLI) | payer MEDICARE, SELFPAY ==
--- NOTE | ~2022-01-17 | CT_ITS ---
EXAMINATION: CT abdomen pelvis wo con DATE: 01/17/2022 14:13 INDICATION: Hematuria. Dysuria. TECHNIQUE: Computed tomography (CT) of the abdomen and pelvis was performed without intravenous contr ast. Automated exposure control and iterative reconstruction technique were employed. Exam dose: 175 .19 mGy-cm total exam DLP. COMPARISON: 08/06/2013 CT abdomen pelvis with IV contrast material FINDINGS: There is mild discoid atelectasis or scarring at the lung bases. No basilar consolidation i s noted. Cardiomegaly. Stable small hepatic dome cyst. No interval hepatic space-occupying mass lesion is evident. Normal sp lenic size. No pancreatic mass lesion, calcification or ductal dilatation. No bile duct dilatation. T he gallbladder is present. Normal morphology of the adrenal glands. Minimal nonobstructive bilateral nephrolithiasis is suggested. No apparent renal space-occupying mass lesion is noted on this limited noncontrast examination. No ureteral calculus or hydroureteronephros is is detected. There is atherosclerotic calcification tortuosity but normal caliber of the abdominal aorta. No intra peritoneal or retroperitoneal or pelvic mass lesion or adenopathy or ascites is noted. The urinary bladder is unremarkable. Status post hysterectomy. Duodenal diverticulum. There are numerous diverticula of the sigmoid and to a lesser extent descendin g colon; no CT evidence of diverticulitis. Status post right partial colectomy. There is a prominent amount of fecal material throughout the col on. No bowel obstruction or intraperitoneal free air is detected. Multilevel degenerative disc disease of the lower thoracic and lumbar spine, most severe at L2-3, ass ociated retrolisthesis at this level. There is prominent degenerative change at the apophyseal joints . No suspicious osteolytic or osteoblastic lesions are noted. IMPRESSION: Cardiomegaly Stable small hepatic dome cyst Minimal nonobstructive bilateral nephrolithiasis is suggested Status post hysterectomy Status post right partial colon resection Duodenal diverticulum Diverticulosis of the left colon; no CT evidence of diverticulitis Reviewed, dictated and finalized at [facility]. Reviewed, dictated and finalized at location B.
== END 2022-01-17 13:51 | disposition home or self-care (01) ==
LOC: CHSIMG 13:54
PROVIDERS: PCP Internal Medicine; Visit Provider Nurse Practitioner Family
DX: R31.9 Hematuria, unspecified (principal)
CPT/HCPCS: 74176; 88112; 88175; G0145

== ENCOUNTER 2022-02-25 07:05 | Outpatient (CLI) | payer MEDICARE, SELFPAY ==
[2022-02-25 07:48] LABS: Hematocrit 38.2 % (35.0-42.0); Hemoglobin 12.1 g/dL (11.7-13.8); Mean Corpuscular HGB Conc 31.7 g/dL (32.0-36.0); Mean Corpuscular Hemoglobin 30.1 pg (27.0-31.0); Mean Platelet Volume 11.3 fl (9.2-11.8); Platelet Count Result 296 K/mm3 (150-420); Red Blood Count 4.02 M/mm3 (4.20-5.40); White Blood Count 9.3 K/mm3 (4.8-10.8)
[2022-02-25 08:34] LABS: Alanine Aminotransferase 16 U/L (14-59); Albumin Level 3.5 g/dL (3.4-5.0); Alkaline Phosphatase 51 U/L (46-116); Anion Gap 5 mmol/L (8-16); Aspartate Amino Transferase 16 U/L (15-37); Bilirubin,Total 0.3 mg/dL (0.00-1.00); Blood Urea Nitrogen 10 mg/dL (7-18); Calcium 8.4 mg/dL (8.5-10.1); Carbon Dioxide 29 mmol/L (21-32); Chloride 109 mmol/L (98-108); Cholesterol 144 mg/dL (0-200); Creatine Kinase 102 U/L (26-192); Estimated Glomerular Filt Rate > 60; Free T3 1.96 pg/mL (2.18-3.98); Free T4 Free Thyroxine 0.86 ng/dL (0.76-1.46); Glucose 102 mg/dL (70-99); HDL Direct 61 mg/dL (40-60); LDL Cholesterol Calculated 60 mg/dL (<130); Osmolality Calculated 295 mOsm/kg (285-295); Potassium 3.5 mmol/L (3.5-5.1); Sodium 143 mmol/L (136-145); Thyroid Stimulating Hormone 2.77 uIU/mL (0.36-3.74); Total Protein 6.4 g/dL (6.4-8.2); Triglycerides 114 mg/dL (0-150); Vitamin B12 214 pg/mL (193-986)
[2022-02-25 08:42] LABS: Band Neutrophils Percent 0 % (0-6); Eosinophils Percent Manual 14 % (1-6); Lymphocytes Absolute Manual 3.06 K/mm3 (1.1-4.5); Lymphocytes Percent Manual 33 % (18-44); Monocytes Absolute Manual 0.27 K/mm3 (0.1-0.90); Monocytes Percent Manual 3 % (3-9); Neutrophils Absolute Manual 4.65 K/mm3 (1.7-7.2); Neutrophils Percent Manual 50 % (46-73); Platelet Estimate Adequate (Adequate); Total Cells Counted 100
[2022-02-25 10:43] LABS: Add Urine Microscopic? YES; Appearance Urine Clear (Clear); Bilirubin Urine Negative (Negative); Blood Urine Negative (Negative); Color Urine Light Yellow (Yellow); Glucose Urine UA Negative (Negative); Ketones Urine Negative (Negative); Leukocyte Esterase Ur 1+ (Negative); Nitrate Urine Negative (Negative); Protein Urine Negative (Negative); Urobilinogen Urine 0.2 mg/dL (0.2-1.0)
[2022-02-25 10:49] LABS: RBC Urine None seen /hpf (0-2)
[2022-02-25 10:50] LABS: Bacteria Urine 1+ /hpf; Squamous Epithelial Cell Urine Few /hpf (Few)
[2022-02-27 14:04] LABS: Vitamin D 25 Hydroxy 26 ng/mL (30-100)
== END 2022-02-25 07:06 | disposition home or self-care (01) ==
LOC: CHSLAB 07:08
PROVIDERS: PCP Internal Medicine; Visit Provider Internal Medicine
DX: E78.2 Mixed hyperlipidemia (principal); I10 Essential (primary) hypertension; R30.0 Dysuria; M81.0 Age-related osteoporosis without current pathological fracture; E53.8 Deficiency of other specified B group vitamins; N39.0 Urinary tract infection, site not specified
CPT/HCPCS: 36415; 80053; 80061; 81001; 82306; 82550; 82607; 84439; 84443; 84481; 85025; 87086

== ENCOUNTER 2022-06-21 13:17 | Outpatient (CLI) | payer MEDICARE, SELFPAY ==
--- NOTE | ~2022-06-21 | CT_ITS ---
EXAMINATION: CT diagnostic chest w con DATE: 06/21/2022 14:35 INDICATION: Left-sided chest pain, history of the thoracic aneurysm TECHNIQUE: Transaxial computed tomographic images of the chest were obtained after the administration of 75 cc of Omnipaque 350 intravenous contrast. The dose-length product (DLP) was 128.20 mGy-cm. Ite rative reconstruction was used. COMPARISON: 05/07/2021 FINDINGS: There is atelectasis in the lingula and lower lobes. Cardiomegaly is noted. There is a trac e left pleural effusion. No pneumothorax is identified. The thoracic aorta measures 3.9 cm at the lev el of the main pulmonary artery. There is no dissection. There are no pathologically enlarged thoraci c lymph nodes. There is severe thoracic spondylosis. IMPRESSION: 1. Dilated thoracic aorta without evidence of dissection. Reviewed, dictated and finalized at location F.
[2022-06-21 13:34] LABS: Basophils Absolute Auto 0.04 K/mm3 (0.00-0.10); Basophils Percent Auto 0.4 % (0.0-1.0); Eosinophils Absolute Auto 0.58 K/mm3 (0.02-0.50); Eosinophils Percent Auto 6.3 % (1.0-6.0); Hematocrit 34.5 % (35.0-42.0); Immature Granulocyte Absolute 0.03 K/mm3 (0.00-0.00); Immature Granulocyte Percent A 0.3 % (0.0-0.0); Lymphocytes Absolute Auto 1.67 K/mm3 (1.10-4.50); Lymphocytes Percent Auto 18.1 % (18.0-42.0); Mean Corpuscular HGB Conc 31.9 g/dL (32.0-36.0); Mean Corpuscular Hemoglobin 30.1 pg (27.0-31.0); Mean Corpuscular Volume 94.3 fL (78.0-102.0); Mean Platelet Volume 11.1 fl (9.2-11.8); Monocytes Absolute Auto 0.49 K/mm3 (0.10-0.90); Monocytes Percent Auto 5.3 % (2.0-11.0); Neutrophils Absolute Auto 6.4 K/mm3 (1.7-7.2); Neutrophils Percent Auto 69.6 % (50.0-70.0); Platelet Count Result 269 K/mm3 (150-420); Red Blood Count 3.66 M/mm3 (4.20-5.40); Red Cell Distribution Width 14.8 % (11.6-14.4); White Blood Count 9.2 K/mm3 (4.8-10.8)
[2022-06-21 13:37] LABS: Add Urine Microscopic? YES; Bilirubin Urine Negative (Negative); Blood Urine Negative (Negative); Color Urine Yellow (Yellow); Glucose Urine UA Negative (Negative); Ketones Urine Negative (Negative); Leukocyte Esterase Ur 1+ LEU/UL (Negative); Nitrate Urine Positive (Negative); Protein Urine 1+ (Negative); Specific Grav Ur 1.025 (1.010-1.020); Urobilinogen Urine 0.2 mg/dL (0.2-1.0)
[2022-06-21 13:44] LABS: Appearance Urine Cloudy (Clear); RBC Urine None seen /hpf (0-2); Squamous Epithelial Cell Urine Moderate /hpf (Few)
[2022-06-21 13:45] LABS: Bacteria Urine 4+ /hpf
[2022-06-21 13:54] LABS: Estimated Glomerular Filt Rate 60
[2022-06-21 14:03] LABS: Alanine Aminotransferase 31 U/L (14-59); Albumin Level 3.1 g/dL (3.4-5.0); Alkaline Phosphatase 53 U/L (46-116); Anion Gap 6 mmol/L (8-16); Aspartate Amino Transferase 41 U/L (15-37); Bilirubin,Total 0.2 mg/dL (0.00-1.00); Blood Urea Nitrogen 17 mg/dL (7-18); CRP 3.3 mg/dL (0.0-0.9); Carbon Dioxide 29 mmol/L (21-32); Chloride 108 mmol/L (98-108); Creatine Kinase 874 U/L (26-192); Glucose 98 mg/dL (70-99); Osmolality Calculated 297 mOsm/kg (285-295); Potassium 3.2 mmol/L (3.5-5.1); Sodium 143 mmol/L (136-145); Total Protein 6.1 g/dL (6.4-8.2); Troponin I 16.6 ng/L (0.00-60.4)
[2022-06-21 14:39] LABS: Erythrocyte Sedimentation Rate 30 mm/hr (0-20)
[2022-06-21 16:31] LABS: NT Pro B Type Natriuretic Pept 805 pg/mL (0-450)
== END 2022-06-21 13:18 | disposition home or self-care (01) ==
LOC: CHSIMG 13:19
PROVIDERS: PCP Internal Medicine; Visit Provider Internal Medicine
DX: R07.9 Chest pain, unspecified (principal); I50.9 Heart failure, unspecified; I71.20 Thoracic aortic aneurysm, without rupture, unspecified; R82.90 Unspecified abnormal findings in urine
CPT/HCPCS: 36415; 71260; 80053; 81001; 82550; 82553; 83880; 84484; 85025; 85652; 86140; 87086; Q9967

== ENCOUNTER 2022-06-24 09:55 | Outpatient (CLI) | payer MEDICARE, SELFPAY ==
[2022-06-24 10:06] LABS: Basophils Absolute Auto 0.04 K/mm3 (0.00-0.10); Basophils Percent Auto 0.4 % (0.0-1.0); Eosinophils Absolute Auto 0.35 K/mm3 (0.02-0.50); Eosinophils Percent Auto 3.1 % (1.0-6.0); Hematocrit 34.7 % (35.0-42.0); Hemoglobin 10.9 g/dL (11.7-13.8); Immature Granulocyte Absolute 0.13 K/mm3 (0.00-0.00); Immature Granulocyte Percent A 1.1 % (0.0-0.0); Lymphocytes Absolute Auto 1.67 K/mm3 (1.10-4.50); Lymphocytes Percent Auto 14.8 % (18.0-42.0); Mean Corpuscular HGB Conc 31.4 g/dL (32.0-36.0); Mean Corpuscular Hemoglobin 29.7 pg (27.0-31.0); Mean Corpuscular Volume 94.6 fL (78.0-102.0); Mean Platelet Volume 10.7 fl (9.2-11.8); Monocytes Absolute Auto 0.93 K/mm3 (0.10-0.90); Monocytes Percent Auto 8.2 % (2.0-11.0); Neutrophils Absolute Auto 8.2 K/mm3 (1.7-7.2); Neutrophils Percent Auto 72.4 % (50.0-70.0); Platelet Count Result 292 K/mm3 (150-420); Red Blood Count 3.67 M/mm3 (4.20-5.40); Red Cell Distribution Width 14.7 % (11.6-14.4); White Blood Count 11.3 K/mm3 (4.8-10.8)
[2022-06-24 10:36] LABS: Alanine Aminotransferase 25 U/L (14-59); Alkaline Phosphatase 72 U/L (46-116); Anion Gap 9 mmol/L (8-16); Aspartate Amino Transferase 33 U/L (15-37); Bilirubin,Total 0.3 mg/dL (0.00-1.00); Blood Urea Nitrogen 11 mg/dL (7-18); Carbon Dioxide 28 mmol/L (21-32); Chloride 106 mmol/L (98-108); Creatine Kinase 469 U/L (26-192); Estimated Glomerular Filt Rate > 60; Glucose 94 mg/dL (70-99); NT Pro B Type Natriuretic Pept 1402 pg/mL (0-450); Osmolality Calculated 295 mOsm/kg (285-295); Potassium 4.1 mmol/L (3.5-5.1); Sodium 143 mmol/L (136-145)
== END 2022-06-24 09:56 | disposition home or self-care (01) ==
LOC: CHSLAB 09:56
PROVIDERS: PCP Internal Medicine; Visit Provider Internal Medicine
DX: R79.89 Other specified abnormal findings of blood chemistry (principal); I50.9 Heart failure, unspecified; R07.89 Other chest pain
CPT/HCPCS: 36415; 80053; 82550; 83880; 85025

== ENCOUNTER 2022-07-05 12:55 | Outpatient (CLI) | payer MEDICARE, SELFPAY ==
--- NOTE | 2022-07-05 14:26 | ECHO_ITS ---
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 Strain analysis performed. Summary 1. Complete two-dimensional, color flow and Doppler transthoracic echocardiogram is performed. 2. Left ventricular chamber dimension is normal. 3. Left ventricular systolic function is normal, estimated at 60-65%. 4. There is moderate concentric increased left ventricular wall thickness. 5. The left ventricular diastolic function is grade I diastolic dysfunction. 6. E/e' 11 is mildly elevated. 7. Global longitudinal strain is normal at -20.1%. 8. There is mild to moderate aortic valve regurgitation. 9. There is mild mitral valve regurgitation. 10. There is trace tricuspid valve regurgitation. 11. There is trace pulmonic regurgitation. Left Ventricle E/e' 11 is mildly elevated. Global longitudinal strain is normal at -20.1%. Left ventricular chamber dimension is normal. Left ventricular systolic function is normal, estimated at 60-65%. There is moderate concentric increased left ventricular wall thickness. The left ventricular diastolic function is grade I diastolic dysfunction. Right Ventricle Right ventricular chamber dimension is normal. Right ventricular systolic function is normal. Left Atria Left atrial chamber dimension is normal. Right Atria Right atrial chamber dimension is normal. Aortic Valve The aortic valve is trileaflet. There is no aortic valve stenosis. There is mild to moderate aortic valve regurgitation. Pulmonic Valve There is trace pulmonic regurgitation. Mitral Valve There is no mitral valve stenosis. There is mild mitral valve regurgitation. Tricuspid Valve There is trace tricuspid valve regurgitation. RVSP is not calculated due to an inadequate TR jet. Pericardium/Pleural There is no pericardial effusion. Inferior Vena Cava Normal inferior vena cava with >50% collapse upon inspiration consistent with normal right atrial pressure, 5 mmHg. Aorta The aortic root size at the sinus of Valsalva is normal. Left Ventricular Outflow Tract Name Value Normal LVOT 2D LVOT Diameter 1.9 cm LVOT Doppler LVOT Peak Velocity 112 cm/s LVOT Peak Gradient 5 mmHg LVOT Mean Gradient 3 mmHg LVOT VTI 23 cm LVOT VTI/AV VTI Ratio 0.7 LVOT Stroke Volume 65 ml Mitral Valve
== END 2022-07-05 12:56 | disposition home or self-care (01) ==
LOC: CHSIMG 12:57
PROVIDERS: PCP Internal Medicine; Visit Provider Internal Medicine
DX: G45.9 Transient cerebral ischemic attack, unspecified (principal)
CPT/HCPCS: 93306

== ENCOUNTER 2022-07-06 09:22 | Outpatient (CLI) | payer MEDICARE, SELFPAY ==
--- NOTE | ~2022-07-06 | MR_ITS ---
EXAMINATION: MR brain/brain stem wo con DATE: 07/06/2022 10:33 INDICATION: TIA TECHNIQUE: Magnetic resonance imaging (MRI) of the brain and brainstem was performed without intraven ous contrast. Sequences included sagittal and axial T1-weighted SE, axial diffusion-weighted FS EPI A SSET, axial T2*-weighted GRE, axial T2-weighted FLAIR Propeller, and axial T2-weighted Propeller. Apple arent diffusion coefficient (ADC) maps were created. COMPARISON: CT brain 01/26/2020 FINDINGS: No abnormal restricted diffusion to suggest acute ischemic infarct. Internal capsular hypodensities i n the prior CT scan likely secondary to a combination of prominent perivascular spaces and chronic wh ite matter change. No MRI evidence of hemorrhage or extra-axial collection. No suspicious foci of rebekah ceptibility to suggest prior intraparenchymal hemorrhage. Moderate patchy and confluent areas of whit e matter hyperintensity likely representing chronic small vessel disease. Mild generalized parenchyma l volume loss. Basilar cisterns are patent. Flow voids are preserved. Orbits and aerated spaces are u nremarkable. IMPRESSION: No acute intracranial process. Moderate small vessel ischemic changes. Reviewed, dictated and finalized at location K.
== END 2022-07-06 09:23 | disposition home or self-care (01) ==
LOC: CHSIMG 09:23
PROVIDERS: PCP Internal Medicine; Visit Provider Internal Medicine
DX: G45.9 Transient cerebral ischemic attack, unspecified (principal)
CPT/HCPCS: 70551

== ENCOUNTER 2022-07-10 13:42 | Outpatient (CLI) | payer MEDICARE, SELFPAY ==
[2022-07-10 14:08] VITALS: BMI 22.6
[2022-07-10 14:09] VITALS: BP 118/63; PULSE 68; RESP 14; TEMP 36.2; O2SAT 97
[2022-07-10] MEDS: DENOSUMAB 60 MG/ML SYRINGE SUB-Q (14:15)
--- NOTE | 2022-07-10 14:16 | PC.NURSE ---
Patient here for q 6 month Prolia injection for Osteoporosis. Education given. No concerns voiced. Prolia injection administered SEE MAR. Tolerated Well. Safe exit of hospital. Will call in 6 months to set up next injection.
== END 2022-07-10 13:43 | disposition home or self-care (01) ==
LOC: CHSLAB 13:50 → CHSTREATRM 13:55
PROVIDERS: PCP Internal Medicine; Visit Provider Internal Medicine
DX: M81.0 Age-related osteoporosis without current pathological fracture (principal)
CPT/HCPCS: 96372; J0897

== ENCOUNTER 2022-10-18 11:58 | Outpatient (CLI) | payer MEDICARE, SELFPAY ==
--- NOTE | ~2022-10-18 | XR_ITS ---
EXAMINATION: XR lumbar spine 2-3V DATE: 10/18/2022 12:27 INDICATION: Low back pain TECHNIQUE: Anteroposterior and lateral views of the lumbar spine, and cone-down lateral view of the l umbosacral junction were obtained. COMPARISON: 11/25/2013 FINDINGS: There are 25 degrees of thoracolumbar levoscoliosis. There are 4 mm of retrolisthesis of L3 on L4. The vertebral body heights are maintained. There is severe loss of intervertebral disc space height at L2-3. There is moderate loss of intervertebral disc space height throughout the remainder o f the lumbar spine. Small degenerative osteophytes project from the anterior endplates of multiple ve rtebral bodies. There is multilevel severe facet joint osteoarthritis. IMPRESSION: 1. Lumbar levoscoliosis with moderate to severe spondylosis. No acute findings. Reviewed, dictated and finalized at location B. PILOT
--- NOTE | ~2022-10-18 | XR_ITS ---
EXAMINATION: XR hip RT min 2V DATE: 10/18/2022 15:32 INDICATION: Right hip pain. TECHNIQUE: 2 views of right hip were obtained. COMPARISON: Right hip radiographs 08/24/2018 FINDINGS: Bone alignment is normal. No fracture. There is moderate right hip osteoarthritis. IMPRESSION: 1. Moderate right hip osteoarthritis. Reviewed, dictated and finalized at location A. DRESSER
--- NOTE | ~2022-10-18 | XR_ITS ---
EXAMINATION: XR heel RT min 2V INDICATION: Right heel pain TECHNIQUE: Two views of the right calcaneus are obtained. COMPARISON: None available FINDINGS: Bone alignment is normal. There is no fracture. A plantar calcaneal enthesophyte is noted. There is calcified atherosclerosis. IMPRESSION: 1. No acute osseous abnormality. Reviewed, dictated and finalized at location B. 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
== END 2022-10-18 11:59 | disposition home or self-care (01) ==
LOC: CHSIMG 12:01
PROVIDERS: PCP Internal Medicine; Visit Provider Nurse Practitioner Family
DX: M54.50 Low back pain, unspecified (principal); M25.551 Pain in right hip; M16.11 Unilateral primary osteoarthritis, right hip; M41.86 Other forms of scoliosis, lumbar region; M43.06 Spondylolysis, lumbar region
CPT/HCPCS: 72100; 73502; 73650

== ENCOUNTER 2022-12-20 07:06 | Outpatient (CLI) | payer MEDICARE, SELFPAY ==
[2022-12-20 07:24] LABS: Hematocrit 37.5 % (35.0-42.0); Hemoglobin 11.7 g/dL (11.7-13.8); Mean Corpuscular HGB Conc 31.2 g/dL (32.0-36.0); Mean Corpuscular Hemoglobin 29.8 pg (27.0-31.0); Mean Corpuscular Volume 95.4 fL (78.0-102.0); Mean Platelet Volume 10.3 fl (9.2-11.8); Platelet Count Result 265 K/mm3 (150-420); Red Blood Count 3.93 M/mm3 (4.20-5.40); Red Cell Distribution Width 14.6 % (11.6-14.4)
[2022-12-20 08:04] LABS: Platelet Estimate Adequate (Adequate)
[2022-12-20 08:05] LABS: Band Neutrophils Percent 0 % (0-6); Basophils Percent Manual 2 % (0-1); Eosinophils Percent Manual 10 % (1-6); Lymphocytes Percent Manual 33 % (18-44); Monocytes Percent Manual 6 % (3-9); Neutrophils Percent Manual 49 % (46-73); Total Cells Counted 100
[2022-12-20 11:53] LABS: Bilirubin Urine Negative (Negative); Blood Urine 2+ (Negative); Color Urine Light Yellow (Yellow); Glucose Urine UA Negative (Negative); Ketones Urine Negative (Negative); Leukocyte Esterase Ur 3+ LEU/UL (Negative); Nitrate Urine Negative (Negative); Protein Urine Trace (Negative); Specific Grav Ur 1.025 (1.010-1.020); Urobilinogen Urine 0.2 mg/dL (0.2-1.0)
[2022-12-20 12:01] LABS: Add Urine Microscopic? YES; Appearance Urine Cloudy (Clear); Bacteria Urine 3+ /hpf; Calcium Oxalate Crystals Urine Many /hpf; Renal Epithelial Cells Urine Few /hpf; Squamous Epithelial Cell Urine Few /hpf (Few)
[2022-12-20 12:32] LABS: Alanine Aminotransferase 39 U/L (14-59); Albumin Level 3.4 g/dL (3.4-5.0); Alkaline Phosphatase 49 U/L (46-116); Anion Gap 8 mmol/L (8-16); Aspartate Amino Transferase 27 U/L (15-37); Bilirubin,Total 0.3 mg/dL (0.00-1.00); Blood Urea Nitrogen 15 mg/dL (7-18); Calcium 9.2 mg/dL (8.5-10.1); Carbon Dioxide 29 mmol/L (21-32); Chloride 109 mmol/L (98-108); Cholesterol 151 mg/dL (0-200); Creatine Kinase 98 U/L (26-192); Estimated Glomerular Filt Rate > 60; Glucose 97 mg/dL (70-99); HDL Direct 66 mg/dL (40-60); LDL Cholesterol Calculated 72 mg/dL (<130); Osmolality Calculated 302 mOsm/kg (285-295); Potassium 3.5 mmol/L (3.5-5.1); Sodium 146 mmol/L (136-145); Total Protein 5.9 g/dL (6.4-8.2); Triglycerides 66 mg/dL (0-150); Vitamin B12 > 2000 pg/mL (193-986)
[2022-12-24 19:36] LABS: Vitamin D 25 Hydroxy 36 ng/mL (30-100)
== END 2022-12-20 07:07 | disposition home or self-care (01) ==
LOC: CHSLAB 07:13
PROVIDERS: PCP Internal Medicine; Visit Provider Internal Medicine
DX: I10 Essential (primary) hypertension (principal); E78.2 Mixed hyperlipidemia; N39.0 Urinary tract infection, site not specified; E55.9 Vitamin D deficiency, unspecified; E53.8 Deficiency of other specified B group vitamins; R82.90 Unspecified abnormal findings in urine
CPT/HCPCS: 36415; 80053; 80061; 81001; 82306; 82550; 82607; 85025; 87086; 87088

== ENCOUNTER 2023-01-23 13:08 | Outpatient (CLI) | payer MEDICARE, SELFPAY ==
[2023-01-23 13:12] VITALS: BMI 22.6
[2023-01-23 13:19] VITALS: BP 150/62; PULSE 62; RESP 16; TEMP 36.4; O2SAT 98
[2023-01-23] MEDS: DENOSUMAB 60 MG/ML SYRINGE SUB-Q (13:25)
--- NOTE | 2023-01-23 13:27 | PC.NURSE ---
Patient here for q 6 month Prolia injection. Education given. No concerns voiced. Reports has been getting these last few years. Injection administered SEE MAR. Tolerated well. Safe exit of hospital per ambulatory per self.
== END 2023-01-23 13:09 | disposition home or self-care (01) ==
LOC: CHSTREATRM 13:10
PROVIDERS: PCP Internal Medicine; Visit Provider Internal Medicine
DX: M81.0 Age-related osteoporosis without current pathological fracture (principal)
CPT/HCPCS: 96372; J0897

== ENCOUNTER 2023-03-06 06:48 | Outpatient (CLI) | payer MEDICARE, SELFPAY ==
--- NOTE | ~2023-03-06 | MR_ITS ---
MRI of the lumbar spine Clinical History: Radiculopathy Technique: Axial T2-weighted images, and sagittal T1-weighted, T2-weighted, and T2 fat-sat images wer e acquired. Coronal T2-weighted images were also performed. Findings: There is 36 degree levoscoliosis of the lumbar spine. No fracture identified. There is 5 mm retrolisthesis of L2 over L3. There are probable minimal grade 1 retrolisthesis of L1 over L2. There is 3 mm retrolisthesis of L3 over L4. There is advanced degenerative disc narrowing at L2-L3, with r eactive marrow edema about this disc space. At L1-L2, there is advanced degenerative disc narrowing. There is minimal disc bulge. There is facet arthropathy, moderate in degree. No central canal stenosis. Probable moderate to severe right neural foraminal narrowing. Left neural foramen preserved. At L2-L3, there is severe degenerative disc narrowing with moderate facet arthropathy bilaterally. No central canal stenosis. There is severe right neural foraminal narrowing. Left neural foramen preser robb. At L3-L4, there is moderate to advanced degenerative disc narrowing with minimal disc bulge. There is moderate facet arthropathy. No central canal stenosis. There is moderate to severe left neural nara inal narrowing, and moderate right neural foraminal narrowing. At L4-L5, there is no disc bulge or herniation. There is mild to moderate facet arthropathy. No centr al canal stenosis. There is mild to moderate left neural foraminal narrowing. Right neural foramen pr eserved. At L5-S1, there is no disc bulge or herniation. There is moderate facet arthropathy, especially on th e left side. No central canal stenosis or neural foraminal narrowing. Paravertebral soft tissues are unremarkable. Impression: 36 degrees levoscoliosis of the lumbar spine. 5 mm retrolisthesis of L2 over L3. 3 mm retrolisthesis of L3 over L4. Moderate degenerative spondylitic changes, as detailed above, with multilevel neural foraminal narrow ing and extensive facet arthropathy. Reviewed, dictated and finalized at [facility]. Impression: 36 degrees levoscoliosis of the lumbar spine. 5 mm retrolisthesis of L2 over L3. 3 mm retrolisthesis of L3 over L4. Moderate degenerative spondylitic changes, as detailed above, with multilevel n eural foraminal narrowing and extensive facet arthropathy.
== END 2023-03-06 06:49 | disposition home or self-care (01) ==
LOC: CHSIMG 06:51
PROVIDERS: PCP Internal Medicine; Visit Provider Internal Medicine
DX: M54.16 Radiculopathy, lumbar region (principal); M41.86 Other forms of scoliosis, lumbar region; M43.16 Spondylolisthesis, lumbar region
CPT/HCPCS: 72148

== ENCOUNTER 2023-07-27 08:57 | Emergency (ER) | payer MEDICARE, SELFPAY ==
[2023-07-27 08:57] VITALS: BP 146/76; PULSE 70; RESP 18; TEMP 36.4; O2SAT 99
[2023-07-27 09:16] VITALS: BP 147/77; O2SAT 96
--- NOTE | 2023-07-27 09:17 | ED.AMS ---
HPI - Altered Mental Status General Chief Complaint: Unspecified Stated Complaint: confusion, possible UTI Time Seen by Provider: 07/27/23 09:16 Source: patient, family and RN notes reviewed Mode of arrival: ambulatory Limitations: no limitations History of Present Illness MD complaint: confusion Onset (ago): day(s) (2) Timing confirmed by: family member Severity: moderate Consistency of symptoms: getting Worse Context: history of similar presentation Associated symptoms: denies other symptoms Related Data Home Medications Medication Instructions Recorded Confirmed chlordiazepoxide HCl 5 mg capsule 5 mg PO TID PRN Insomnia 01/26/20 01/23/23 gabapentin 300 mg capsule 300 mg PO QPM 01/26/20 01/23/23 (Neurontin) metoprolol tartrate 25 mg tablet 25 mg PO BID 01/26/20 01/23/23 mirtazapine 30 mg tablet (Remeron) 30 mg PO HS 01/26/20 01/23/23 aspirin 81 mg tablet,delayed 81 mg PO DAILY 11/22/20 01/23/23 release (Adult Low Dose Aspirin) atorvastatin 20 mg tablet 20 mg PO DAILY 11/22/20 01/23/23 conjugated estrogens 0.625 mg/gram 0.625 mg vaginal DAILY 11/22/20 01/23/23 vaginal cream (Premarin) cyanocobalamin (vitamin B-12) 1,000 mcg PO DAILY 11/22/20 01/23/23 1,000 mcg capsule denosumab 60 mg/mL subcutaneous 60 mg subcut [id number] 11/22/20 01/23/23 syringe lisinopril 2.5 mg tablet 2.5 mg PO DAILY 11/22/20 01/23/23 omeprazole 20 mg capsule,delayed 20 mg PO DAILY 01/01/21 01/23/23 release Allergies Allergy/AdvReac Type Severity Reaction Status Date / Time No Known Allergies Allergy Verified 07/27/23 09:10 Review of Systems Review of Systems: All systems reviewed & are unremarkable except as noted in HPI and below PMFSH Past Medical History Medical History Age-related osteoporosis without current pathological fracture Cerebral infarction Chest pain Dysthymic disorder GERD (gastroesophageal reflux disease) HTN (hypertension) Insomnia due to other mental disorder Low back pain Mixed hyperlipidemia Mixed irritable bowel syndrome Nonrheumatic aortic (valve) stenosis Occlusion and stenosis of bilateral carotid arteries Personal history of colonic polyps Personal history UTI Postmenopausal atrophic vaginitis Thoracic aortic aneurysm without rupture Vitamin D deficiency, unspecified Surgical History Surgical History History of colon resection History of colonoscopy History of hysterectomy Social History Social History Smoking status: Never smoker Gender identity (if verbalized by the patient): Female Exam Const: General: healthy appearing, no acute distress and alert Nutritional Appearance: well nourished Orientation/consciousness: oriented to person and oriented to place Limitations: no limitations HENMT: Head: normal to inspection Ears: external ears normal Face/Nose/Sinus: Normal external nose present Face and sinus: normal facial exam Mouth: Yes moist mucous membranes Eyes: Conjunctivae: conjunctivae normal Pupils: Equal, round and reactive pupils present EOM: EOMs intact bilaterally Neck: Neck: normal visual inspection Resp: Effort & Inspection: normal respiratory effort Auscultation: clear to auscultation bilaterally Cardio: Rate: regular rate Rhythm: regular rhythm GI: GI Palp: Yes Soft to palpation and No Tenderness to palpation present (GI) Auscultation: normal bowel sounds Back/Spine/Pelvis: Cervical Spine: cervical ROM normal Thoracic/Lumbar Spine: thoraco-lumbar ROM normal Skin: General skin exam: normal color Rashes: no rashes Neuro: General: moves all extremities, no focal motor deficits and CN's II-XI intact bilaterally Speech: normal speech Gait exam (Neuro): Normal gait present Extrem: General: normal to inspection and no clubbing, cyanosis or edema Psych: Mental Status: mental status grossly lulu
[2023-07-27 09:31] VITALS: BP 145/54; O2SAT 95
[2023-07-27 09:46] LABS: Basophils Absolute Auto 0.05 K/mm3 (0.00-0.10); Basophils Percent Auto 0.6 % (0.0-1.0); Eosinophils Absolute Auto 0.21 K/mm3 (0.02-0.50); Eosinophils Percent Auto 2.7 % (1.0-6.0); Hematocrit 39.4 % (35.0-42.0); Hemoglobin 12.3 g/dL (11.7-13.8); Immature Granulocyte Absolute 0.03 K/mm3 (0.00-0.00); Immature Granulocyte Percent A 0.4 % (0.0-0.0); Lymphocytes Absolute Auto 1.52 K/mm3 (1.10-4.50); Lymphocytes Percent Auto 19.7 % (18.0-42.0); Mean Corpuscular HGB Conc 31.2 g/dL (32.0-36.0); Mean Corpuscular Hemoglobin 29.9 pg (27.0-31.0); Mean Corpuscular Volume 95.9 fL (78.0-102.0); Mean Platelet Volume 10.9 fl (9.2-11.8); Monocytes Absolute Auto 0.44 K/mm3 (0.10-0.90); Monocytes Percent Auto 5.7 % (2.0-11.0); Neutrophils Absolute Auto 5.5 K/mm3 (1.7-7.2); Neutrophils Percent Auto 70.9 % (50.0-70.0); Platelet Count Result 232 K/mm3 (150-420); Red Blood Count 4.11 M/mm3 (4.20-5.40); Red Cell Distribution Width 14.3 % (11.6-14.4); White Blood Count 7.7 K/mm3 (4.8-10.8)
[2023-07-27 09:58] LABS: Alanine Aminotransferase 25 U/L (14-59); Albumin Level 3.5 g/dL (3.4-5.0); Alkaline Phosphatase 51 U/L (46-116); Anion Gap 5 mmol/L (8-16); Aspartate Amino Transferase 21 U/L (15-37); Bilirubin,Total 0.4 mg/dL (0.00-1.00); Blood Urea Nitrogen 21 mg/dL (7-18); Calcium 10.9 mg/dL (8.5-10.1); Carbon Dioxide 33 mmol/L (21-32); Chloride 103 mmol/L (98-108); Estimated Glomerular Filt Rate 54; Glucose 95 mg/dL (70-99); Magnesium 2.1 mg/dL (1.8-2.4); Osmolality Calculated 295 mOsm/kg (285-295); Potassium 4.9 mmol/L (3.5-5.1); Sodium 141 mmol/L (136-145); Total Protein 6.5 g/dL (6.4-8.2)
[2023-07-27 09:59] LABS: CRP < 0.1 mg/dL (0.0-0.9)
[2023-07-27 10:00] LABS: Appearance Urine Clear (Clear); Bilirubin Urine Negative (Negative); Blood Urine Negative (Negative); Color Urine Light Yellow (Yellow); Glucose Urine UA Negative (Negative); Ketones Urine Trace (Negative); Leukocyte Esterase Ur Negative LEU/UL (Negative); Nitrate Urine Negative (Negative); Protein Urine Negative (Negative); Specific Grav Ur 1.025 (1.010-1.020); Urobilinogen Urine 0.2 mg/dL (0.2-1.0)
[2023-07-27 10:01] VITALS: BP 127/65; O2SAT 95
[2023-07-27 10:07] LABS: Add Urine Microscopic? YES; Amorphous Sediment Urine Few; Bacteria Urine Trace /hpf; RBC Urine 0-2 /hpf (0-2); Squamous Epithelial Cell Urine Occasional /hpf (Few)
[2023-07-27 10:08] LABS: Mucus Urine Moderate /lpf
[2023-07-27 10:24] VITALS: BP 120/94; PULSE 73; RESP 16; TEMP 36.5; O2SAT 97
== END 2023-07-27 10:30 | disposition home or self-care (01) ==
LOC: CHSED 10:26
PROVIDERS: Emergency Provider Emergency Medicine; PCP Internal Medicine
DX: R41.0 Disorientation, unspecified (principal); I10 Essential (primary) hypertension; E78.2 Mixed hyperlipidemia
CPT/HCPCS: 36415; 80053; 81001; 83735; 85025; 86140; 99283

== ENCOUNTER 2023-10-01 16:50 | Outpatient (CLI) | payer MEDICARE, SELFPAY ==
[2023-10-01 17:24] LABS: Anion Gap 10 mmol/L (8-16); Blood Urea Nitrogen 19 mg/dL (7-18); Calcium 9.9 mg/dL (8.5-10.1); Carbon Dioxide 28 mmol/L (21-32); Chloride 106 mmol/L (98-108); Estimated Glomerular Filt Rate > 60; Glucose 100 mg/dL (70-99); Osmolality Calculated 300 mOsm/kg (285-295); Potassium 4.2 mmol/L (3.5-5.1); Sodium 144 mmol/L (136-145)
== END 2023-10-01 16:51 | disposition home or self-care (01) ==
PROVIDERS: PCP Internal Medicine; Visit Provider Internal Medicine
DX: E87.6 Hypokalemia (principal)
CPT/HCPCS: 36415; 80048

== ENCOUNTER 2023-10-14 07:01 | Outpatient (CLI) | payer MEDICARE, SELFPAY ==
--- NOTE | ~2023-10-14 | CT_ITS ---
EXAMINATION: CT abdomen pelvis wo/w con DATE: 10/14/2023 08:26 INDICATION: Hematuria. TECHNIQUE: Computed tomography (CT) of the abdomen and pelvis was performed without and with intraven ous contrast using a total of 130 mL Omnipaque-350 intravenous contrast with a double-bolus technique for simultaneous opacification of the renal parenchyma and renal collecting system. Automated exposu re control and iterative reconstruction technique were employed. The dose-length product was 553.74 m Gy-cm. COMPARISON: CT abdomen and pelvis 01/17/2022 FINDINGS: The visualized portions of the lung bases demonstrate mild atelectasis. No pleural effusion. The hear t size is normal. There is a trace pericardial effusion. There are cysts in the liver measuring up to 7 mm. The gallbladder is normal. Calcifications in the spleen are consistent with old granulomatous disease. Pancreatic duct is mildly dilated to 5 mm, likely chronic pancreatitis. The adrenal glands a re normal. There are cysts in the kidneys measuring up to 8 mm on the right. There are 3 stones in ri ght kidney measuring up to 5 mm. There is a 4 mm stone at right ureteropelvic junction. Right ureter is not well-opacified in its middle third. There is a 3 mm stone in left kidney. Left ureter is well opacified and is normal. There is a bladder diverticulum on the right. There is diverticulosis of the colon without evidence of diverticulitis. There are changes of right hemicolectomy. There are no pat hologically enlarged lymph nodes. There is no free intraperitoneal fluid. There is lumbar thoracolumb ar levoscoliosis and severe spondylosis. IMPRESSION: 1. 4 mm stone at right ureteropelvic junction. No hydronephrosis. 2. Bilateral nonobstructing kidney stones. Reviewed, dictated and finalized at location A. RVISOR MAPPING
[2023-10-14 07:34] LABS: Estimated Glomerular Filt Rate > 60
== END 2023-10-14 07:02 | disposition home or self-care (01) ==
LOC: CHSIMG 07:05
PROVIDERS: PCP Internal Medicine; Visit Provider Internal Medicine
DX: R31.9 Hematuria, unspecified (principal); N20.2 Calculus of kidney with calculus of ureter
CPT/HCPCS: 74178; 88112; Q9967

== ENCOUNTER 2023-10-23 07:24 | Outpatient (CLI) | payer MEDICARE, SELFPAY ==
--- NOTE | ~2023-10-23 | US_ITS ---
EXAMINATION: US retroperitoneal comp DATE: 10/23/2023 08:07 INDICATION: Stone at right ureteropelvic junction. TECHNIQUE: Multiple ultrasound grayscale images of the kidneys were obtained. COMPARISON: CT 10/14/2023 FINDINGS: The right kidney measures 9.0 x 3.7 x 2.9 cm. The left kidney measures 10.0 x 3.2 x 4.4 cm. The kidne ys demonstrate normal parenchymal echogenicity. There are peripelvic cysts in left kidney measuring u p to 13 mm. There is no hydronephrosis. The bladder is normal. IMPRESSION: 1. Normal kidney sizes. No hydronephrosis. Reviewed, dictated and finalized at location A. GER OF PATIENT
[2023-10-23 14:38] LABS: Appearance Urine Clear (Clear); Bilirubin Urine Negative (Negative); Blood Urine 3+ (Negative); Color Urine Light Yellow (Yellow); Glucose Urine UA Negative (Negative); Ketones Urine Negative (Negative); Leukocyte Esterase Ur 1+ (Negative); Nitrate Urine Negative (Negative); Protein Urine Trace (Negative); Specific Grav Ur 1.025 (1.010-1.020); Urobilinogen Urine 0.2 mg/dL (0.2-1.0)
[2023-10-23 14:47] LABS: Add Urine Microscopic? YES; Bacteria Urine 2+ /hpf; RBC Urine 21-50 /hpf (0-2); Squamous Epithelial Cell Urine Few /hpf (Few)
== END 2023-10-23 07:25 | disposition home or self-care (01) ==
PROVIDERS: PCP Internal Medicine; Visit Provider Internal Medicine
DX: N20.0 Calculus of kidney (principal); R31.9 Hematuria, unspecified
CPT/HCPCS: 76770; 81001; 87086; 87088

== ENCOUNTER 2023-12-18 13:24 | Outpatient (CLI) | payer MEDICARE, SELFPAY ==
--- NOTE | ~2023-12-18 | XR_ITS ---
Supine and upright views of the abdomen Clinical history: Renal stones Findings: Bowel gas pattern is nonspecific. No evidence for obstruction or free air. Probable small b ilateral renal stones. Probable calcified pelvic phleboliths. There is levoscoliosis and degenerative change of the lumbar spine. Impression: Probable small bilateral renal stones. Reviewed, dictated and finalized at [facility]. Impression: Probable small bilateral renal stones.
== END 2023-12-18 13:25 | disposition home or self-care (01) ==
PROVIDERS: PCP Internal Medicine; Visit Provider Urology
DX: N20.0 Calculus of kidney (principal)
CPT/HCPCS: 74018

== ENCOUNTER 2024-01-10 07:01 | Outpatient (CLI) | payer MEDICARE, SELFPAY ==
[2024-01-10 07:21] LABS: Basophils Absolute Auto 0.06 K/mm3 (0.00-0.10); Basophils Percent Auto 0.7 % (0.0-1.0); Eosinophils Absolute Auto 0.73 K/mm3 (0.02-0.50); Eosinophils Percent Auto 8.4 % (1.0-6.0); Hematocrit 36.1 % (35.0-42.0); Hemoglobin 11.2 g/dL (11.7-13.8); Immature Granulocyte Absolute 0.02 K/mm3 (0.00-0.00); Immature Granulocyte Percent A 0.2 % (0.0-0.0); Lymphocytes Absolute Auto 2.63 K/mm3 (1.10-4.50); Lymphocytes Percent Auto 30.4 % (18.0-42.0); Mean Corpuscular Hemoglobin 29.9 pg (27.0-31.0); Mean Corpuscular Volume 96.3 fL (78.0-102.0); Mean Platelet Volume 10.9 fl (9.2-11.8); Monocytes Absolute Auto 0.53 K/mm3 (0.10-0.90); Monocytes Percent Auto 6.1 % (2.0-11.0); Neutrophils Absolute Auto 4.67 K/mm3 (1.70-7.20); Neutrophils Percent Auto 54.2 % (50.0-70.0); Platelet Count Result 228 K/mm3 (150-420); Red Blood Count 3.75 M/mm3 (4.20-5.40); Red Cell Distribution Width 13.2 % (11.6-14.4); White Blood Count 8.6 K/mm3 (4.8-10.8)
[2024-01-10 08:16] LABS: Alanine Aminotransferase 23 U/L (14-59); Albumin Level 3.1 g/dL (3.4-5.0); Alkaline Phosphatase 83 U/L (46-116); Anion Gap 10 mmol/L (4-12); Aspartate Amino Transferase 22 U/L (15-37); Bilirubin,Total 0.3 mg/dL (0.00-1.00); Blood Urea Nitrogen 17 mg/dL (7-18); Carbon Dioxide 30 mmol/L (21-32); Chloride 108 mmol/L (98-108); Cholesterol 122 mg/dL (0-200); Estimated Glomerular Filt Rate > 60; Glucose 97 mg/dL (70-99); HDL Direct 58 mg/dL (40-60); LDL Cholesterol Calculated 49 mg/dL (<130); Osmolality Calculated 307 mOsm/kg (285-295); Potassium 4.1 mmol/L (3.5-5.1); Sodium 148 mmol/L (136-145); Total Protein 5.6 g/dL (6.4-8.2); Triglycerides 74 mg/dL (0-150); Vitamin B12 1941 pg/mL (193-986)
[2024-01-10 10:22] LABS: Bilirubin Urine Negative (Negative); Blood Urine 3+ (Negative); Color Urine Yellow (Yellow); Glucose Urine UA Negative (Negative); Ketones Urine Negative (Negative); Leukocyte Esterase Ur 1+ LEU/UL (Negative); Nitrate Urine Negative (Negative); Protein Urine 2+ (Negative); Specific Grav Ur 1.025 (1.010-1.020); Urobilinogen Urine 0.2 mg/dL (0.2-1.0)
[2024-01-10 10:28] LABS: Add Urine Microscopic? YES; Appearance Urine Cloudy (Clear); Bacteria Urine 2+ /hpf; Squamous Epithelial Cell Urine Few /hpf (Few)
[2024-01-12 11:39] LABS: Vitamin D 25 Hydroxy 29 ng/mL (30-100)
== END 2024-01-10 07:02 | disposition home or self-care (01) ==
PROVIDERS: PCP Internal Medicine; Visit Provider Internal Medicine
DX: I10 Essential (primary) hypertension (principal); E78.2 Mixed hyperlipidemia; E55.9 Vitamin D deficiency, unspecified; E53.8 Deficiency of other specified B group vitamins; N39.0 Urinary tract infection, site not specified; R82.90 Unspecified abnormal findings in urine
CPT/HCPCS: 36415; 80053; 80061; 81001; 82306; 82607; 85025; 87086

== ENCOUNTER 2024-01-26 07:54 | Outpatient (CLI) | payer MEDICARE, SELFPAY ==
--- NOTE | ~2024-01-26 | CT_ITS ---
EXAMINATION: CT abdomen pelvis wo con DATE: 01/26/2024 08:36 INDICATION: Right posterior abdominal pain. Kidney stones. TECHNIQUE: Computed tomography (CT) of the abdomen and pelvis was performed without intravenous contr ast. Automated exposure control and iterative reconstruction technique were employed. Exam dose: 172 .54 mGy-cm total exam DLP. COMPARISON: None. FINDINGS: There is mild discoid atelectasis or more likely scarring at the lung bases, primarily at t he lingula and left lower lobe. No infiltrate or consolidation is noted. Cardiomegaly. Trace pericardial fluid. Aortic valve calcification. Coronary artery calcifications. The liver, gallbladder, spleen, pancreas and bile ducts and pancreatic duct appear unremarkable on th is limited noncontrast examination. Normal morphology of the adrenal glands. Approximately 1.7 x 4 mm nonobstructing left renal calculus. Approximately 3 mm nonobstructing upper pole right renal calculus. Approximately 3.5 x 5 mm right ureteropelvic obstructing calculus with moderately severe right pelvie ctasis and hydronephrosis as well as some pyelosinus extravasation. No left hydroureteronephrosis. The urinary bladder is unremarkable. Status post hysterectomy. There is atherosclerotic calcification and tortuosity but no aneurysm of the abdominal aorta. No intr aperitoneal or retroperitoneal or pelvic mass lesion or adenopathy or ascites is detected. Status post partial right colectomy. No bowel obstruction, bowel wall thickening, pneumatosis or intr aperitoneal free air. Numerous diverticula of the left colon, particularly the sigmoid area; no CT evidence of diverticulit is. Prominent lumbar spine levoscoliosis and spondylosis. No suspicious osteolytic or osteoblastic lesion s are noted. IMPRESSION: Approximately 2.5 x 5 mm obstructing right ureteropelvic junction calculus with moderate ly severe right pelviectasis and hydronephrosis Mild nonobstructing bilateral nephrolithiasis Diverticulosis of the left colon; no CT evidence of diverticulitis Status post right partial colectomy Status post hysterectomy Reviewed, dictated and finalized at [facility]. Reviewed, dictated and finalized at location B. IMPRESSION: Approximately 2.5 x 5 mm obstructing right ureteropelvic junction calculus with moderately severe right pelviectasis and hydronephrosis Mild nonobstructing bilateral nephrolithiasis Diverticulosis of the left colon; no CT evidence of diverticulitis Status post right partial colectomy Status post hysterectomy
--- NOTE | ~2024-01-26 | XR_ITS ---
EXAMINATION: XR abdomen/kub 1V DATE: 01/26/2024 08:36 INDICATION: Kidney stones. TECHNIQUE: A supine view of the abdomen on 2 radiographs was obtained. COMPARISON: Abdomen radiographs 12/18/2023, CT abdomen and pelvis 01/26/2024 FINDINGS: There are no dilated loops of bowel. There is a 3 mm stone in left kidney. There are phlebo liths in the pelvis. There is a 5 mm stone in right ureter at L4. IMPRESSION: 1. 5 mm stone in proximal right ureter at L4. 2. 3 mm left kidney stone. Reviewed, dictated and finalized at location A.
== END 2024-01-26 07:55 | disposition home or self-care (01) ==
LOC: CHSIMG 07:56
PROVIDERS: PCP Internal Medicine; Visit Provider Urology
DX: N20.0 Calculus of kidney (principal); N20.1 Calculus of ureter; K57.90 Diverticulosis of intestine, part unspecified, without perforation or abscess without bleeding; Z90.49 Acquired absence of other specified parts of digestive tract; Z90.710 Acquired absence of both cervix and uterus
CPT/HCPCS: 74018; 74176

== ENCOUNTER 2024-02-16 11:16 | Outpatient (CLI) | payer MEDICARE, SELFPAY ==
--- NOTE | 2024-02-16 11:33 | ECG_ITS ---
Test Date: 2024-02-16 11:54:59 Measurements Intervals [place] Rate: 64 P: 55 PA: 153 QRS: 33 QRSD: 105 T: 39 QT: 390 QTc: 403 Interpretive Statements SINUS RHYTHM WITH OCCASIONAL VENTRICULAR PREMATURE COMPLEXES MINIMAL VOLTAGE CRITERIA FOR LVH, CONSIDER NORMAL VARIANT [MEETS CRITERIA IN ONE OF: R(aVL), S(V1), R(V5), R(V5/V6)+S(V1)] POSSIBLE INFERIOR MYOCARDIAL INFARCTION , PROBABLY OLD [30 ms Q WAVE IN II/aVF] No previous ECG available for comparison Electronically Signed On 02-17-2024 10:39:37 CDT by Keli Huggins M.D.
== END 2024-02-16 11:17 | disposition home or self-care (01) ==
LOC: CHSLAB 11:19
PROVIDERS: PCP Internal Medicine; Visit Provider Urology
DX: Z01.818 Encounter for other preprocedural examination (principal); I10 Essential (primary) hypertension; N20.0 Calculus of kidney; R94.31 Abnormal electrocardiogram [ECG] [EKG]
CPT/HCPCS: 87077; 87086; 87088; 87186; 93005

== ENCOUNTER 2024-02-24 00:20 | Day surgery (SDC) | payer MEDICARE, SELFPAY ==
[2024-02-11 10:32] VITALS: BMI 22.6
--- NOTE | 2024-02-11 10:53 | PC.NURSE ---
PRE-OP INSTRUCTIONS PLEASE READ CAREFULLY Report to the Outpatient Waiting Room, entrance under the green pavilion located off [facility], at time _0700_ on date _02/24/24_. Planned Procedure Time: _0900_. Time changes happen often and if your time is changed the preop area will call you the afternoon before. - You and your visitor will be asked to self-screen and do not enter if you have any COVID symptoms. - A mask is optional within the hospital at this time. Patients may have clear liquids (water, carbonated beverages, clear teas, apple juice) until 3 hours prior to surgery (0600 AM) with a maximum of 20 ounces. - No food from midnight until time of surgery Take the following medications with a SIP of water the morning of surgery: _GABAPENTIN, METHENAMINE, METOPROLOL_ DO NOT STOP ANY OF YOUR OTHER PRESCRIPTION MEDICATIONS PRIOR TO SURGERY ?EXCEPT THE FOLLOWING Medications to discontinue - _ASPIRIN INSTRUCTED BY DR. GONSALES_ Medications to discontinue per ANESTHESIA - _VITAMINS/PROBIOTIC/SUPPLEMENTS 3 DAYS PRIOR TO SURGERY, Date to take last dose 02/20/24_ Please no make-up, nail uzbek, hairspray, perfume, deodorant, or body powder the day of surgery. No jewelry (including any body piercings) or valuables the day of surgery, leave them at home. Please take a shower or bath the night before, or the morning of, surgery with an antibacterial soap. Wear comfortable, loose fitting clothing. - Jewelry must be removed prior to entering the operating room. Rings and piercings that are not removed may be cut off. - The hospital will not accept responsibility for valuables. - Please leave all valuables, including medications, at home the day of surgery. If you are going home after surgery, a licensed bulk delivery driver must drive you home. - NO public transportation without another adult if you receive anesthesia. - We recommend that an adult stay with you for 24 hours following discharge. - We also recommend that you do not drive, make important decision, drink alcoholic beverages, or take any drugs that were not prescribed by your health care provider for at least 24 hours after your discharge time. Follow any additional instructions given to you from your surgeon. If you or anyone in your household have experienced Covid symptoms in the past week, please notify your surgeon or the nurse liaison at the phone number below for possible testing. Instructions given to _PATIENT_and asked if any additional questions and then verbalized understanding. Patient advised to call surgeon office or pre surgery nurse liaison [phone] if any additional questions.
--- NOTE | 2024-02-19 10:06 | SUR.PREOP ---
Recieved call from Luanne to discuss medicine instructions. It is apparent that Luanne has the written preop instructions we gave her she's reading as we talk. After 18 minutes of repeatedly answering the same questions I'm not convinced she understands. Gave patient permission to call me again friday if still wondering. I called Yanira her daughter who is also a nurse and made her aware of the problem.
[2024-02-24] VITALS (7 sets, daily range): BP systolic 110–148; BP diastolic 47–102; PULSE 60–78; RESP 10–16; TEMP 36.3–36.7; O2SAT 99–100
--- NOTE | ~2024-02-24 | XR_ITS ---
EXAMINATION: XR retrograde pyelo w/stent RT DATE: 02/24/2024 09:38 INDICATION: Right retrograde pyelogram with stent placement TECHNIQUE: 3 fluoroscopic images of the abdomen and pelvis were obtained during procedure performed alicia Avelar. Radiologist was not present for the imaging or procedure. The amount of fluoroscopy t justa used during this procedure was 0.2 minutes. COMPARISON: None. FINDINGS: Sequential images demonstrate retrograde contrast injection extending to a lucent filling d efect in the proximal right ureter which corresponds in size and location to the recently noted obstr ucting ureteral stone. MRs didn't pass beyond the stone into the right renal collecting system which is moderately dilated. Subsequent image demonstrates advancement of a right internal ureteral stent o yuniel the wire with the loop formed in the renal pelvis. Contrast has cleared from the right ureter on the final images and is unclear whether the stone was extracted or remains in place. Moderate thoraco lumbar levoscoliosis with severe spondylosis. IMPRESSION: 1. Proximal right ureteral stone with moderate right hydronephrosis. Subsequent placement of a right internal ureteral stent which is in expected position. It is unclear whether the stone was extracted or remains in place. See procedure note for further detail. Reviewed, dictated and finalized at location A.
--- NOTE | 2024-02-24 07:17 | PM.IMHP ---
H&P: HPI History of Present Illness Date/Time: 02/24/24 07:17 Chief Complaint: right ureteral calculus Narrative: 88 yr old female with a right proximal/upj calculus presents for definitive treatment. Review of Systems Review of Systems: All systems reviewed & are unremarkable except as noted in HPI and below PMFSH Past Medical History Medical History Age-related osteoporosis without current pathological fracture Cerebral infarction Chest pain Dysthymic disorder GERD (gastroesophageal reflux disease) HTN (hypertension) Insomnia due to other mental disorder Low back pain Mixed hyperlipidemia Mixed irritable bowel syndrome Nonrheumatic aortic (valve) stenosis Occlusion and stenosis of bilateral carotid arteries Personal history of colonic polyps Personal history UTI Postmenopausal atrophic vaginitis Thoracic aortic aneurysm without rupture Vitamin D deficiency, unspecified Surgical History Surgical History History of colon resection History of colonoscopy History of hysterectomy Social History Social History Smoking status: Never smoker Second hand tobacco smoke exposure: No Alcohol intake: never Substance use: never Substance use type: does not use Living arrangements: with family Additional living arrangements comments: LIVES WITH YOUNGEST DAUGHTER - TROY Gender identity (if verbalized by the patient): Female Spiritual care concerns: No Meds Home Medications and Allergies Home Medications Medication Instructions Recorded Confirmed Type gabapentin 300 mg capsule See Rx Instructions .Route .COMPLEX 01/26/20 02/11/24 History (Neurontin) metoprolol tartrate 25 mg tablet 25 mg PO BID 01/26/20 02/11/24 History mirtazapine 30 mg tablet (Remeron) 15 mg PO HS 01/26/20 02/11/24 History aspirin 81 mg tablet,delayed 81 mg PO DAILY 11/22/20 02/11/24 History release (Adult Low Dose Aspirin) atorvastatin 20 mg tablet 20 mg PO DAILY 11/22/20 02/11/24 History cyanocobalamin (vitamin B-12) 1,000 mcg PO DAILY 11/22/20 02/11/24 History 1,000 mcg capsule denosumab 60 mg/mL subcutaneous 60 mg subcut [id number] 11/22/20 02/11/24 History syringe lisinopril 2.5 mg tablet 2.5 mg PO DAILY 11/22/20 02/11/24 History Probiotic 1 tab-cap DAILY 02/11/24 02/11/24 History cetirizine 10 mg capsule (Zyrtec) 10 mg PO DAILY PRN Congestion 02/11/24 02/11/24 History methenamine hippurate 1 gram tablet 0.5 g DAILY 02/11/24 02/11/24 History phenazopyridine 95 mg tablet 95 mg PO DAILY 02/11/24 02/11/24 History vit C 250 mg-vit E 90 mg-zinc 40 1 tablet PO BID 02/11/24 02/11/24 History mg-copper 1 [id number] capsule (PreserVision AREDS-2) Allergies Allergy/AdvReac Type Severity Reaction Status Date / Time No Known Allergies Allergy Verified 02/11/24 10:21 Exam Const: General: cooperative and comfortable Resp: Effort & Inspection: normal respiratory effort Cardio: Rate: regular rate Assessment and Plan Assessment and plan (1) Right ureteral calculus: Code(s): N20.1 - Calculus of ureter Status: Acute Assessment and Plan: Proceed with cystoscopy, right retrograde , right ureteroscopy with stone extraction, possible laser, stent placement.
--- NOTE | 2024-02-24 07:22 | WPDHPUPDATE1 ---
History and Physical Update Update Date/Time: 02/24/24 07:22 History and Physical has been reviewed, including an updated exam of the patient. There are NO changes in the patient's condition. Risks, benefits, and alternatives have been discussed and questions answered. Patient agrees to proceed with procedure. Proceed with cystoscopy, right retrograde, right ureteroscopy with stone extraction, right stent, possible laser.
[2024-02-24] MEDS: LACTATED RINGERS 1,000 ML 30 ML IV CONT (08:00)
--- NOTE | 2024-02-24 08:12 | WPDANESEPPF ---
Anes - Initial Pre Proc Eval Procedure: Operation Date: 02/24/24 09:00 Proposed Procedures p Cystoscopy, Right Ureteroscopy, Right Retrograde Pyelogram, Right Stone Extraction, Right Stent Placement, Possible Holmium Laser - Yovanny Avelar MD Date/Time: 02/24/24 08:12 Surgeon: Yovanny Avelar MD Pre Op Diagnosis: Right Ureteral Calculus Patient Data Age: 89 Gender: F Height: 1.68 m Weight: 63.63 kg Allergies Allergy/AdvReac Type Severity Reaction Status Date / Time No Known Allergies Allergy Verified 02/11/24 10:21 Home Medications Medication Instructions Recorded Confirmed Type gabapentin 300 mg capsule See Rx Instructions .Route .COMPLEX 01/26/20 02/11/24 History (Neurontin) metoprolol tartrate 25 mg tablet 25 mg PO BID 01/26/20 02/11/24 History mirtazapine 30 mg tablet (Remeron) 15 mg PO HS 01/26/20 02/11/24 History aspirin 81 mg tablet,delayed 81 mg PO DAILY 11/22/20 02/11/24 History release (Adult Low Dose Aspirin) atorvastatin 20 mg tablet 20 mg PO DAILY 11/22/20 02/11/24 History cyanocobalamin (vitamin B-12) 1,000 mcg PO DAILY 11/22/20 02/11/24 History 1,000 mcg capsule denosumab 60 mg/mL subcutaneous 60 mg subcut [id number] 11/22/20 02/11/24 History syringe lisinopril 2.5 mg tablet 2.5 mg PO DAILY 11/22/20 02/11/24 History Probiotic 1 tab-cap DAILY 02/11/24 02/11/24 History cetirizine 10 mg capsule (Zyrtec) 10 mg PO DAILY PRN Congestion 02/11/24 02/11/24 History methenamine hippurate 1 gram tablet 0.5 g DAILY 02/11/24 02/11/24 History phenazopyridine 95 mg tablet 95 mg PO DAILY 02/11/24 02/11/24 History vit C 250 mg-vit E 90 mg-zinc 40 1 tablet PO BID 02/11/24 02/11/24 History mg-copper 1 [id number] capsule (PreserVision AREDS-2) Patient hx anesthesia problems: none Family hx anesthesia problems: none Results Review: All pre-operative results and documents have been reviewed as part of the pre-operative evaluation. [facility], LAT[facility] Past Medical History Medical History Age-related osteoporosis without current pathological fracture Cerebral infarction Chest pain Dysthymic disorder GERD (gastroesophageal reflux disease) HTN (hypertension) Insomnia due to other mental disorder Low back pain Mixed hyperlipidemia Mixed irritable bowel syndrome Nonrheumatic aortic (valve) stenosis Occlusion and stenosis of bilateral carotid arteries Personal history of colonic polyps Personal history UTI Postmenopausal atrophic vaginitis Thoracic aortic aneurysm without rupture Vitamin D deficiency, unspecified Surgical History Surgical History History of colon resection History of colonoscopy History of hysterectomy Social History Social History Smoking status: Never smoker Second hand tobacco smoke exposure: No Alcohol intake: never Substance use: never Substance use type: does not use Living arrangements: with family Additional living arrangements comments: LIVES WITH YOUNGEST DAUGHTER - TROY Gender identity (if verbalized by the patient): Female Spiritual care concerns: No Anes - Eval Final PreProcedure Day of Procedure 02/24/24 08:12 Patient weight: normal Heart: regular rate and rhythm and murmur Lungs: clear to auscultation Airway: Mallampati scale class II and other (dentures) Neurological: alert and oriented Last oral intake: >/= 8 hours ASA classification: III Emergent: no Anesthetic plan: proceed Anesthesia type and monitoring: general LMA and standard monitoring Results Review: All pre-operative results and documents have been reviewed as part of the pre-operative evaluation. Informed Consent: The patient's anesthetic plan and its attendant risks and benefits were discussed with the patient/family/POA. Questions were solicited and answers provided to the satisfaction of
[2024-02-24] MEDS: ceFAZolin 2 GM/D5W 50 ML 2 GM/50 ML BAG IVPB (08:59)
[2024-02-24] MEDS: LIDOCAINE HCL 2% GEL UROJET 10 ML PKG MUCOUS MEM (09:08)
--- NOTE | 2024-02-24 09:38 | W.PM.PROC2 ---
Procedure Note - Detailed Date of Procedure 02/24/24 Pre-op Diagnosis Right Ureteral Calculus Post-op Diagnosis Same Procedure Performed Cystoscopy, right retrograde pyelogram, right ureteroscopy with holmium laser, stone extraction, right ureteral stent placement Surgeon Yovanny Avelar MD Anesthesia General Description of Procedure Patient was taken to the operative suite correctly identified. Once anesthesia was obtained she was placed in dorsal lithotomy position and prepped and draped usual sterile fashion. Nineteen [place]uran scope inserted into the bladder there no tumors noted. The right ureteral orifice was cannulated with the rigid ureteral scope. Stone was found impacted in the mid ureter. Using a 200 micron fiber we lasered this stone into numerous small pieces. The largest ones were retrieved using escape basket sent for analysis. Flexible ureteral scope was inserted up all the way into the kidney. No other residual stones noted at this time. Pyelogram was performed to confirm placement of the stent. 4.8 [place] contour stent was then placed with the proximal end coiled in the renal pelvis and the distal end in the bladder. Bladder was drained. 2% viscous lidocaine was inserted into the urethra patient is taken recovery stable condition. She will follow-up in a week's time for stent removal. This completes dictation. Please send a copy of op note to my office. Estimated Blood Loss 0 Drains Yes Packing No Pathology Yes Complications No immediate complications Condition Stable Disposition PACU
--- NOTE | 2024-02-24 09:41 | SUR.PREOP ---
pt had a +urine culture prior to procedure today. pt has been taking abx since friday. did not take today. dr mishra aware. ok to proceed.
== END 2024-02-24 11:03 | disposition home or self-care (01) ==
PROVIDERS: PCP Internal Medicine; Visit Provider Urology
PROC: (CPT 52352; principal; 2024-02-24 09:00)
DX: N20.1 Calculus of ureter (principal); I10 Essential (primary) hypertension; E78.2 Mixed hyperlipidemia; M81.0 Age-related osteoporosis without current pathological fracture; K21.9 Gastro-esophageal reflux disease without esophagitis; K58.2 Mixed irritable bowel syndrome; Z86.73 Personal history of transient ischemic attack (TIA), and cerebral infarction without residual deficits; Z90.49 Acquired absence of other specified parts of digestive tract; Z79.82 Long term (current) use of aspirin
CPT/HCPCS: 52356; 74420; 82365; 88300; C1758; C1769; C2617; J0690; J1100; J2405; J2704; J3010; J7120; Q9966

== ENCOUNTER 2024-04-02 12:27 | Outpatient (CLI) | payer MEDICARE, SELFPAY ==
--- NOTE | ~2024-04-02 | DEXA_ITS ---
Bone Density Report Name: BRENDA WILSON Age: 89 Sex: Female Ethnicity: White Date of : 1935 Indication: postmenopausal; screening for osteoporosis; height loss; hysterectomy; Referring Provider: VILLA GONSALES Study: Bone densitometry was performed. Exam Date: April 02, 2024 Accession number: [id number] Bone Density: Region BMD T-score Z-score Classification AP Spine(L1, L3, L4) 0.815 -2.2 0.7 Osteopenia Femoral Neck (Left) 0.556 -2.6 -0.1 Osteoporosis Total Hip (Left) 0.639 -2.5 -0.1 Osteoporosis Femoral Neck (Right) 0.576 -2.5 0.1 Osteoporosis Total Hip (Right) 0.663 -2.3 0.1 Osteopenia Femoral Neck Mean 0.566 -2.6 0.0 Osteoporosis Total Hip Mean 0.651 -2.4 0.0 Osteopenia World Health Organization criteria for BMD impression classify patients as: Normal (T-score at or above -1.0), Osteopenia (T-score between -1.0 and -2.5), or Osteoporosis (T-score at or below -2.5). 10-year Fracture Risk: FRAX not reported because: Some T-score for Spine Total or Hip Total or Femoral Neck at or below -2.5 Treated for osteoporosis Clinical Information Provided by Patient: Is being treated for osteoporosis Has used the following medications: Fosamax (i.e. alendronate), Prolia (i.e. denosumab), Vitamin D, Calcium Has the following medical conditions: Hysterectomy Patient maximum height was 66 Menopause Age: 52 No regular weight bearing exercise Onset of menses at age 15 Number of children 3 Impression: The patient has osteoporosis, based on the Left Femoral Neck T-score. Discussion: It is important to ask patients whether they are taking their medications and to encourage continued and appropriate compliance with their osteoporosis therapies to reduce fracture risk. It is also important to review their risk factors and encourage appropriate calcium and vitamin D intakes, exercise, fall prevention and other lifestyle measures. Follow-Up: Consider a repeat BMD and Vertebral Fracture Assessment (VFA) exam in 2 years or sooner if medically necessary, to reassess this patient's status. Reported by: Dr. Jeff Saavedra on 04/02/2024 1:21:00 PM. Reviewed, dictated and finalized at location Tessa [place]
--- NOTE | ~2024-04-02 | US_ITS ---
EXAMINATION: US retroperitoneal comp DATE: 04/02/2024 13:00 INDICATION: Right Ureteral Stone TECHNIQUE: Multiple grayscale and Doppler ultrasound images of the kidneys were obtained. COMPARISON: CT abdomen pelvis 01/26/2024. FINDINGS: The right kidney measures 11.0 x 4.0 x 4.0 cm. The left kidney measures 9.5 x 4.1 x 4.0 cm. The kidne ys demonstrate normal parenchymal echogenicity. 4 mm echogenic focus in the left midpole. There is mi ld left pelviectasis. The bladder is incompletely distended and therefore not well evaluated. IMPRESSION: 4 mm left kidney stone. Mild left pelviectasis. Reviewed, dictated and finalized at location K.
== END 2024-04-02 12:28 | disposition home or self-care (01) ==
PROVIDERS: PCP Internal Medicine; Visit Provider Urology
DX: M81.0 Age-related osteoporosis without current pathological fracture (principal); N20.0 Calculus of kidney; M85.89 Other specified disorders of bone density and structure, multiple sites
CPT/HCPCS: 76770; 77080

== ENCOUNTER 2024-04-22 12:29 | Outpatient (CLI) | payer MEDICARE, SELFPAY ==
[2024-04-22] MEDS: DENOSUMAB 60 MG/ML SYRINGE SUB-Q (12:54)
[2024-04-22 12:56] VITALS: BP 156/68; PULSE 72; RESP 16; TEMP 36.3; O2SAT 97
[2024-04-22 13:00] VITALS: BMI 22.6
== END 2024-04-22 12:30 | disposition home or self-care (01) ==
PROVIDERS: PCP Internal Medicine; Visit Provider Internal Medicine
DX: M81.0 Age-related osteoporosis without current pathological fracture (principal)
CPT/HCPCS: 96372; J0897

== ENCOUNTER 2024-08-14 07:10 | Outpatient (CLI) | payer MEDICARE, SELFPAY ==
[2024-08-14 07:29] LABS: Basophils Absolute Auto 0.05 K/mm3 (0.00-0.10); Basophils Percent Auto 0.7 % (0.0-1.0); Eosinophils Absolute Auto 0.45 K/mm3 (0.02-0.50); Eosinophils Percent Auto 6.6 % (1.0-6.0); Hematocrit 36.8 % (35.0-42.0); Hemoglobin 11.8 g/dL (11.7-13.8); Immature Granulocyte Absolute 0.01 K/mm3 (0.00-0.00); Immature Granulocyte Percent A 0.1 % (0.0-0.0); Lymphocytes Absolute Auto 2.02 K/mm3 (1.10-4.50); Lymphocytes Percent Auto 29.4 % (18.0-42.0); Mean Corpuscular HGB Conc 32.1 g/dL (32-36); Mean Corpuscular Volume 93.6 fL (78.0-102.0); Mean Platelet Volume 10.4 fl (9.2-11.8); Monocytes Absolute Auto 0.58 K/mm3 (0.10-0.90); Monocytes Percent Auto 8.4 % (2.0-11.0); Neutrophils Absolute Auto 3.76 K/mm3 (1.70-7.20); Neutrophils Percent Auto 54.8 % (50.0-70.0); Platelet Count Result 223 K/mm3 (150-420); Red Blood Count 3.93 M/mm3 (4.20-5.40); White Blood Count 6.9 K/mm3 (4.8-10.8)
[2024-08-14 08:30] LABS: Alanine Aminotransferase 24 U/L (14-59); Albumin Level 3.5 g/dL (3.4-5.0); Alkaline Phosphatase 66 U/L (46-116); Anion Gap 8 mmol/L (4-12); Aspartate Amino Transferase 18 U/L (15-37); Bilirubin,Total 0.5 mg/dL (0.00-1.00); Blood Urea Nitrogen 12 mg/dL (7-18); Calcium 8.7 mg/dL (8.5-10.1); Carbon Dioxide 29 mmol/L (21-32); Chloride 107 mmol/L (98-108); Cholesterol 161 mg/dL (0-200); Creatine Kinase 106 U/L (26-192); Estimated Glomerular Filt Rate > 60; Ferritin 52 ng/mL (8-252); Glucose 91 mg/dL (70-99); HDL Direct 69 mg/dL (40-60); Iron 48 ug/dL (50-170); LDL Cholesterol Calculated 76 mg/dL (<130); Osmolality Calculated 297 mOsm/kg (285-295); Potassium 3.6 mmol/L (3.5-5.1); Sodium 144 mmol/L (136-145); Total Protein 6.2 g/dL (6.4-8.2); Triglycerides 78 mg/dL (0-150)
[2024-08-14 13:22] LABS: Add Urine Microscopic? YES; Appearance Urine Sl Cloudy (Clear); Bilirubin Urine Negative (Negative); Blood Urine Negative (Negative); Color Urine Light Yellow (Yellow); Glucose Urine UA Negative (Negative); Ketones Urine Negative (Negative); Leukocyte Esterase Ur 3+ LEU/UL (Negative); Nitrate Urine Positive (Negative); Protein Urine 1+ (Negative); Specific Grav Ur 1.025 (1.010-1.020); Urobilinogen Urine 0.2 mg/dL (0.2-1.0)
[2024-08-14 13:32] LABS: RBC Urine None seen /hpf (0-2); Squamous Epithelial Cell Urine Rare /hpf (Few); WBC Urine >75 /hpf (0-3)
[2024-08-14 13:33] LABS: Bacteria Urine 3+ /hpf
== END 2024-08-14 07:11 | disposition home or self-care (01) ==
LOC: CHSLAB 07:13
PROVIDERS: PCP Internal Medicine; Visit Provider Internal Medicine
DX: D64.9 Anemia, unspecified (principal); I10 Essential (primary) hypertension; E78.2 Mixed hyperlipidemia; I47.10 Supraventricular tachycardia, unspecified
CPT/HCPCS: 36415; 80053; 80061; 81001; 82550; 82728; 83540; 85025; 87086

== ENCOUNTER 2024-08-17 12:14 | Outpatient (CLI) | payer MEDICARE, SELFPAY ==
--- NOTE | ~2024-08-17 | US_ITS ---
EXAMINATION: US retroperitoneal comp DATE: 08/17/2024 12:48 INDICATION: Right ureteral stone TECHNIQUE: Multiple ultrasound grayscale images of the kidneys were obtained. COMPARISON: None. FINDINGS: The right kidney measures 10.0 x 4.1 x 4.2 cm. The left kidney measures 10.0 x 3.4 x 3.8 cm. The kidn eys demonstrate normal echogenicity. There is mild left hydronephrosis. There is no hydronephrosis at the right kidney. No stones identified. The bladder is normal with bilateral ureteral jets visualiz ed on color Doppler.. IMPRESSION: 1. No significant change in mild left hydronephrosis. Reviewed, dictated and finalized at location A. MANAGER
== END 2024-08-17 12:15 | disposition home or self-care (01) ==
PROVIDERS: PCP Internal Medicine; Visit Provider Urology
DX: N20.1 Calculus of ureter (principal); N13.30 Unspecified hydronephrosis
CPT/HCPCS: 76770

== ENCOUNTER 2024-09-01 16:53 | Emergency (ER) | payer MEDICARE, SELFPAY ==
[2024-09-01] VITALS (10 sets, daily range): BP systolic 114–167; BP diastolic 64–115; PULSE 64–90; RESP 15–18; TEMP 36.7–36.8; O2SAT 95–99
--- NOTE | ~2024-09-01 | CT_ITS ---
EXAMINATION: CT brain wo con DATE: 09/01/2024 17:43 INDICATION: Confusion. TECHNIQUE: Computed tomography (CT) of the head was performed without intravenous contrast. The mA wa s adjusted according to patient size. Iterative reconstruction technique was employed. The dose-lengt h product was 605.33 mGy-cm. COMPARISON: Head CT 01/26/2020 FINDINGS: There are scattered areas of low attenuation in the cerebral white matter. There is no intr acranial hemorrhage, acute infarction, or abnormal intracranial mass lesion. There are old infarcts i n the bilateral caudate nuclei. The ventricles are normal in size. There is mild mucosal thickening i n the paranasal sinuses. There are likely changes of ocular lens replacement surgeries. The mastoid a ir cells are normal. IMPRESSION: 1. Old infarcts in the bilateral caudate nuclei. 2. Moderate nonspecific cerebral white matter disease, which likely represents chronic small vessel i schemic disease. Reviewed, dictated and finalized at location A. NSE ATTORNEY IMPRESSION: 1. Old infarcts in the bilateral caudate nuclei. 2. Moderate nonspecific cerebral white matter disease, which likely represents chronic small vessel ischemic disease.
--- NOTE | 2024-09-01 17:20 | ED.GENADULT ---
HPI - General Adult General Chief complaint: Altered Mental Status Stated complaint: confusion Source: patient and family Mode of arrival: ambulatory Limitations: no limitations History of Present Illness HPI narrative: 89-year-old white female brought in by her daughters this end she was been confused over the last [address] when she gets a urinary tract infection which he has had frequently. Is on antibiotic to prevent urinary tract infection she has also had a stroke and TIA in the past denies any cough fever sore throat runny nose rash or itching bleeding or bruising dizziness or lightheadedness weakness or numbness she is having burning with urination. She has been eating and drinking walking talking seeing and hearing fine. Denies any other complaints. Related Data Home Medications ?Medication ?Instructions ?Recorded ?Confirmed ?Last Taken ?Type gabapentin 300 mg capsule See Rx Instructions .Route .COMPLEX 01/26/20 09/01/24 02/24/24 History (Neurontin) metoprolol tartrate 25 mg tablet 25 mg PO BID 01/26/20 09/01/24 02/24/24 History mirtazapine 30 mg tablet (Remeron) 15 mg PO HS 01/26/20 09/01/24 Unknown History aspirin 81 mg tablet,delayed 81 mg PO DAILY 11/22/20 04/22/24 02/17/24 History release (Adult Low Dose Aspirin) atorvastatin 20 mg tablet 20 mg PO DAILY 11/22/20 09/01/24 Unknown History cyanocobalamin (vitamin B-12) 1,000 mcg PO DAILY 11/22/20 04/22/24 Unknown History 1,000 mcg capsule denosumab 60 mg/mL subcutaneous 60 mg subcut [id number] 11/22/20 04/22/24 Unknown History syringe lisinopril 2.5 mg tablet 2.5 mg PO DAILY 11/22/20 09/01/24 Unknown History Probiotic 1 tab-cap DAILY 02/11/24 04/22/24 Unknown History cetirizine 10 mg capsule (Zyrtec) 10 mg PO DAILY PRN Congestion 02/11/24 04/22/24 Unknown History methenamine hippurate 1 gram tablet 0.5 g DAILY 02/11/24 04/22/24 02/24/24 History phenazopyridine 95 mg tablet 95 mg PO DAILY 02/11/24 04/22/24 Unknown History vit C 250 mg-vit E 90 mg-zinc 40 1 tablet PO BID 02/11/24 04/22/24 Unknown History mg-copper 1 [id number] capsule (PreserVision AREDS-2) Allergies Allergy/AdvReac Type Severity Reaction Status Date / Time No Known Allergies Allergy Verified 09/01/24 17:13 Review of Systems Review of Systems: All systems reviewed & are unremarkable except as noted in HPI and below PMFSH Past Medical History Medical History Chest pain Cerebral infarction Occlusion and stenosis of bilateral carotid arteries Low back pain Personal history UTI Postmenopausal atrophic vaginitis Personal history of colonic polyps Age-related osteoporosis without current pathological fracture Mixed irritable bowel syndrome GERD (gastroesophageal reflux disease) Vitamin D deficiency, unspecified Dysthymic disorder Mixed hyperlipidemia Thoracic aortic aneurysm without rupture Nonrheumatic aortic (valve) stenosis Insomnia due to other mental disorder HTN (hypertension) Surgical History Surgical History History of colon resection History of hysterectomy History of colonoscopy Social History Social History Smoking status: Never smoker Second hand tobacco smoke exposure: No Alcohol intake: never Substance use: never Substance use type: does not use Living arrangements: with family Additional living arrangements comments: LIVES WITH YOUNGEST DAUGHTER - TROY Gender identity (if verbalized by the patient): Female Spiritual care concerns: No Comments She has had a heart ablation for SVT appendectomy had colon cancer kidney stones large kidney that are watching. Exam Narrative: Elderly White female patient with no apparent distress.? alert and oriented x4. Head normocephalic, atraumatic.? Eyes conjunctiva pink sclera nonicteric.? Extraocular movements are intact.? Ears externally normal.? Oropharynx is clear with moist mucous membranes without exudates.? Neck is supple nontender no lymphadenopathy.? Back is nontender.? Lungs are clear.? Heart is regular rate and rhythm without murmurs gallops or rubs.? Chest wall nontender. Abdomen is soft and nontender no hepatosplenomegaly or masses no CVA tenderness no abdominal bruits.? Extremities no cyanosis clubbing or edema.? Skin is warm and dry without rashes or lesions.? Neurological patient is alert and oriented x4.? Motor and sensory grossly intact.? Gait is normal. Course Vital Signs Vital signs: Vital Signs Temperature 36.7 C 09/01/24 16:56 Pulse Rate 90 09/01/24 16:56 Respiratory Rate 18 09/01/24 16:56 Blood Pressure 167/87 H 09/01/24 16:56 Pulse Oximetry 95 09/01/24 16:56 Oxygen Delivery Room Air 09/01/24 16:56 Temperature 36.7 C 09/01/24 16:56 Pulse Rate 86 09/01/24 17:05 Respiratory Rate 16 09/01/24 17:00 Blood Pressure 167/87 H 09/01/24 17:00 Pulse Oximetry 95 09/01/24 17:00 Oxygen Delivery Room Air 09/01/24 16:56 Medical Decision Making MDM Narrative Medical decision making narrative: Patient placed in room: Three ? History and physical was performed. Urinalysis specific gravity 1.025 +1 protein and ketones trace of blood positive nitrite +1 leukocyte esterase greater than 75 wbc's CBC:? Normal CMP:? Sodium 146 osmo 302, rest of CMP was normal.? Coags normal. CT brain without: Per radiologist: IMPRESSION: 1. Old infarcts in the bilateral caudate nuclei. 2. Moderate nonspecific cerebral white matter disease, which likely represents chronic small vessel ischemic disease. Independent Historian: alyce External Source Review: Differential Dx includes but not limited to: urinary tract infection electrolyte imbalance stroke Medications were Reviewed: home meds reviewed Medications given: cephalexin 250 mg 2 tablets p.o. Pyridium 200 mg Independently Interpreted by me: Shared decision Making: evaluation was discussed all questions were asked and answered patient and family agreed with plan. She will take cephalexin 100 mg 3 times a day 7 days Pyridium 200 mg 3 times a day for 2 days Social Situation Impacting Patients Care: history of frequent UTIs. Discussed with Dr. MERAZ DIAGNOSIS: acute urinary tract infection DISPOSITION : discharge home CONDITION AT DISCHARGE: stable Vital Signs Vital Signs: Vital Signs Temperature 36.7 C 09/01/24 16:56 Pulse Rate 90 09/01/24 16:56 Respiratory Rate 18 09/01/24 16:56 Blood Pressure 167/87 H 09/01/24 16:56 Pulse Oximetry 95 09/01/24 16:56 Oxygen Delivery Room Air 09/01/24 16:56 Temperature 36.7 C 09/01/24 16:56 Pulse Rate 86 09/01/24 17:05 Respiratory Rate 16 09/01/24 17:00 Blood Pressure 167/87 H 09/01/24 17:00 Pulse Oximetry 95 09/01/24 17:00 Oxygen Delivery Room Air 09/01/24 16:56 Discharge Plan Discharge Clinical Impression: Acute UTI Patient Disposition: Home, Self-Care Condition: Stable Instructions: Antibiotic Form, Urinary Tract Infection in Women (ED) Additional Instructions: cephalexin 250 m tablets 3 times a day for 7 days. Pyridium 200 mg 3 times a day for 2 days. Increase her fluids by mouth follow-up with your primary care provider in the next 2-7 days. Return if you get worse or develops any new symptoms. Patient Language: Chadian Prescriptions: New cephalexin 250 mg capsule 500 mg PO Q8H 7 Days Qty: 42 0RF phenazopyridine [Pyridium] 200 mg tablet 200 mg PO TID Qty: 6 0RF No Action gabapentin [Neurontin] 300 mg capsule See Rx Instructions .ROUTE .COMPLEX Rx Instructions: 1 TAB IN THE AM, 1 TAB @ NOON AND 3 TAB @ HS metoprolol tartrate 25 mg tablet 25 mg PO BID mirtazapine [Remeron] 30 mg tablet 15 mg PO HS denosumab 60 mg/mL syringe 60 mg subcut [id number] Rx Instructions: LAST DOSE AUG 2023 aspirin [Adult Low Dose Aspirin] 81 mg tablet,delayed release (DR/EC) 81 mg PO DAILY cyanocobalamin (vitamin B-12) 1,000 mcg capsule 1,000 mcg PO DAILY atorvastatin 20 mg tablet 20 mg PO DAILY lisinopril 2.5 mg tablet 2.5 mg PO DAILY methenamine hippurate 1 gram Tablet 0.5 g DAILY phenazopyridine 95 mg Tablet 95 mg PO DAILY Zyrtec 10 mg Capsule 10 mg PO DAILY PRN (Reason: Congestion) PreserVision AREDS-2 250-90-40-1 mg Capsule 1 tablet PO BID Probiotic 1 tab-cap DAILY sulfamethoxazole-trimethoprim [Bactrim DS] 800-160 mg tablet 1 tablet PO Q12H Qty: 6 0RF tramadol 50 mg tablet 50 mg PO Q6H PRN (Reason: pain) Qty: 10 0RF Follow-up/Referrals: UNKNOWN,DOCTOR [Non-Staff] - Time of Disposition: 19:43
[2024-09-01 17:21] LABS: Glucose Point of Care 98 mg/dl (65-105)
[2024-09-01 18:01] LABS: Hematocrit 36.7 % (35.0-42.0); Hemoglobin 11.8 g/dL (11.7-13.8); Mean Corpuscular HGB Conc 32.2 g/dL (32-36); Mean Corpuscular Hemoglobin 29.6 pg (27.0-31.0); Mean Platelet Volume 10.3 fl (9.2-11.8); Platelet Count Result 288 K/mm3 (150-420); Red Blood Count 3.99 M/mm3 (4.20-5.40); Red Cell Distribution Width 13.6 % (11.6-14.4)
[2024-09-01 18:06] LABS: Add Urine Microscopic? YES; Appearance Urine Cloudy (Clear); Bilirubin Urine Negative (Negative); Blood Urine Trace-intact (Negative); Color Urine Light Yellow (Yellow); Glucose Urine UA Negative (Negative); Ketones Urine 1+ (Negative); Leukocyte Esterase Ur 1+ LEU/UL (Negative); Nitrate Urine Positive (Negative); Protein Urine 1+ (Negative); Specific Grav Ur 1.025 (1.010-1.020); Urobilinogen Urine 0.2 mg/dL (0.2-1.0)
[2024-09-01 18:11] LABS: Bacteria Urine 4+ /hpf; RBC Urine 0-2 /hpf (0-2); Squamous Epithelial Cell Urine Rare /hpf (Few); WBC Urine >75 /hpf (0-3)
[2024-09-01 18:15] LABS: Alanine Aminotransferase 18 U/L (14-59); Albumin Level 3.9 g/dL (3.4-5.0); Alkaline Phosphatase 58 U/L (46-116); Anion Gap 11 mmol/L (4-12); Aspartate Amino Transferase 22 U/L (15-37); Bilirubin,Total 0.4 mg/dL (0.00-1.00); Blood Urea Nitrogen 13 mg/dL (7-18); Calcium 9.3 mg/dL (8.5-10.1); Carbon Dioxide 29 mmol/L (21-32); Chloride 106 mmol/L (98-108); Estimated CRCL calculation 39 ml/min; Estimated Glomerular Filt Rate > 60; Glucose 96 mg/dL (70-99); Osmolality Calculated 302 mOsm/kg (285-295); Sodium 146 mmol/L (136-145); Total Protein 6.6 g/dL (6.4-8.2)
[2024-09-01 18:17] LABS: Partial Thromboplastin Time 24.8 Sec (23.9-30.70); Prothrombin Time 11.1 Seconds (9.50-12.1)
--- NOTE | 2024-09-01 18:54 | PC.NURSE ---
assumed care. report received from vicenta moeller.
[2024-09-01] MEDS: PHENAZOPYRIDINE HCL 100 MG TABLET 200 MG PO (20:02)
[2024-09-01] MEDS: CEPHALEXIN 500 MG CAPSULE PO (20:02)
--- NOTE | 2024-09-04 12:53 | PC.NURSE ---
preliminary urine culture report reviewed. >100,000 gram neg bacilli isolated. pt dx with uti at discharge and prescribed keflex. awaiting final report with sensitivities per erp dr comer
--- NOTE | 2024-09-05 13:42 | PC.NURSE ---
NOTED FINAL URINE CULTURE, RX FOR KEFLEX. OK NO NEED FOR CHANGE.
--- OUTSIDE RECORDS SUMMARY | 2024-09-08 20:38 | XMS_ITS | Clinical Summary ---
Author Organization [facility] Address [address] [place] [address] Care Team Providers Care Mine Surveyor Name Role Phone Casa Encarnacion MD Primary Care Provider [phone] Source Comments [facility],non-owned Affiliates and Associated Physician Practices is amultiple site organization consisting of ambulatory clinics and hospital sitesin [place], [place], [place] and [place]. This disclosure is being madepursuant to the Care Everywhere program and may not contain all information available regarding this patient. Last updated 18.[facility] Allergies Active Allergy Reactions Criticality Noted Date Comments Seasonal Other Low 08/27/2017 Sneezing Medications * Be aware that medications may not be up to date on this document. Alwaysverify current medications with the patient. Medication Sig Dispensed Refills Start Date End Date Status metoprolol tartrate (LOPRESSOR) 25 MG tablet 08/20/2017 Active alendronate (FOSAMAX) 70 MG tablet 03/14/2017 Active mirtazapine (REMERON) 30 MG tablet Take 1 (one) tablet by mouth 11/05/2016 Active chlordiazePOXIDE (LIBRIUM) 5 MG capsule 01/03/2018 Active aspirin (ASPIRIN) 81 MG chew tablet Take 1 (one) tablet by mouth once daily 01/29/2020 Active Bismuth Subsalicylate 525 MG/15ML Take 30 mL by mouth every 6 hours as needed Active cetirizine (ZYRTEC) 10 MG tablet Take 1 (one) tablet by mouth as needed Active vitamin D, cholecalciferol, 50 MCG (2000 UT) tablet Take 1 (one) tablet by mouth once daily Active cranberry fruit 450 MG tablet Take 1 (one) tablet by mouth once daily Active cyanocobalamin (VITAMIN B-12) 1000 MCG tablet Take 1 (one) tablet by mouth once daily Active docusate sodium (COLACE) 100 MG capsule Take 1 (one) capsule by mouth 2 times daily as needed Active lisinopril (PRINIVIL; ZESTRIL) 2.5 MG tablet Take 1 (one) tablet by mouth once daily 01/28/2020 Active loperamide (IMODIUM) 2 MG capsule Take 1 (one) capsule by mouth 4 times daily as needed Active Multiple Vitamins-Minerals (SYSTANE ICAPS AREDS2) CAPS Take 2 tablets by mouth once daily Active Psyllium 51.7 % PACK Take 1 packet by mouth once daily Active acetaminophen (TYLENOL) 500 MG tablet Take 1 (one) tablet by mouth every 4 hours as needed Active atorvastatin (LIPITOR) 20 MG tablet Take 1 (one) tablet by mouth once daily 08/13/2020 Active potassium chloride ER (Klor-Con) 10 MEQ tablet Take 1 (one) tablet by mouth once daily 06/13/2022 Active methenamine hippurate (Hiprex) 1 GM tablet 04/26/2024 Active methylPREDNISolone (Medrol Dosepak) 4 MG tablet 03/05/2023 Active nitrofurantoin monohyd macro crystals (Macrobid) 100 MG capsule 01/26/2024 Active sulfamethoxazole-tri methoprim (Bactrim DS; Septra DS) 800-160 MG tablet 02/24/2024 Active traMADol (Ultram) 50 MG tablet 02/24/2024 Active nystatin (Mycostatin) powderIndications:Hi story of candidiasis Compounded 120,000 unit nystatin vaginal capsules. INSERT ONE CAPSULE IN THE VAGINA NIGHTLY DIRECTED. 30 Each 4 06/01/2024 Active gabapentin (Neurontin) 300 MG capsuleIndications:V ulvodynia TAKE TWO CAPSULES BY MOUTH THREE TIMES A DAY 540 capsule 3 08/09/2024 Active Active Problems Patient Care Coordination No te Formatting of this note migh t be different from the original. Patient uses [employer]. 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 Resolved Problems Problem Noted Date Diagnosed Date Resolved Date Urinary tract infection 06/25/201712/07 Overview (12/08/2017): IMO regulatory upload 06/24 Unspecified condition associ ated with female genital organs and menstrual cycle 12/12/201501/16 Encounters Date Type Department Care Team Description 08/09/2024 Refill [facility] - PATIENT ACCOUNT REPRESENTATIVE [address] [place] [address] Aye Dao MD Refill Request 08/09/2024 Telephone [facility] - PATIENT ACCOUNT REPRESENTATIVE [address] [place] [address] Aye Dao MD Medication Request from Last 3 Months Immunizations Name Administration Dates Next Due INFLUENZA VACCINE, TRIV. (AF LURIA, FLUZONE TRIVALENT; 6MO+) (IIV3) 06/08/2014 PNEUMOCOCCAL PCV, HISTORIC VACCINE 09/08/2009 Family History Medical History Relation Name Comments None Known Father None Known Mother Relation Name Status Comments Father Maternal Grandfather Maternal Grandmother Mother Paternal Grandfather Paternal Grandmother Social History Tobacco Use Types Packs/Day Years Used Date Smoking Tobacco: Never Smokeless Tobacco: Never Tobacco Cessation:Counseling Given: Not Answered Alcohol Use Standard Drinks/Week Comments No 0 (1 standard drink = 0.6 oz pur e alcohol) Sex and Gender Information Value Date Recorded Sex Assigned at Not on file Gender Identity Not on file Sexual Orientation Not on file Last Filed Vital Signs Vital Sign Reading Time Taken Comments Blood Pressure 118/70 06/01/2024 12:55 PM CDT Pulse 62 11/05/2016 8:34 AM 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 MOLDER HELPER Temperature 36.5 ??C (97.7 ??F) 06/01/2024 12:55 PM C DT Respiratory Rate - - Oxygen Saturation - - Inhaled Oxygen Concentration - - Weight 59.4 kg (131 lb) 06/01/2024 12:55 PM CDT Height 167.6 cm (5' 6 ) 06/01/2024 12:55 PM CDT Body Mass Index 21.14 06/01/2024 12:55 PM CDT Plan of Treatment Upcoming Encounters Date Type Department Care Team (Late st Contact Info) Description 05/24/2025 2:00 PM CDT Office Visit [facility] - PATIENT ACCOUNT REPRESENTATIVE [address] [place] [address] Aye Dao MD [address] [place] [address] Health Maintenance Due Date Last Done Comments BONE DENSITY TESTING 1935 MEDICARE AWV ? 12 MONTHS 1935 DTAP/TDAP/TD VACCINES (1 - Tdap) 02/23/1956 ZOSTER VACCINE (1 of 2) 1987 PNEUMOCOCCAL VACCINE 65+ (2 of 2 - PPSV23 or PCV20) 09/08/2010 09/08/2009 Respiratory Syncytial Virus (RSV) Vaccine Pt: or over 60 yrs (1 - 1-dose 75+ series) 02/23/2012 DEPRESSION SCREENING 09/08/2023 COVID-19 VACCINE ( season) 2024 06/30/2022, 07/04/2021, 11/03/2020, Additional history exists INFLUENZA VACCINE (#1) 2024 2, 06/19/2021, 06/13/2020, Additional history exists HEPATITIS B VACCINE Aged Out No longe r eligible based on patient's age to complete this topic HIB VACCINE Aged Out No longer eligi ble based on patient's age to complete this topic HPV VACCINE Aged Out No longer eligi ble based on patient's age to complete this topic MENINGOCOCCAL VACCINE Aged Out No adam yuniel eligible based on patient's age to complete this topic Care Teams Mine Surveyor Relationship Specialty Start Date End Date Casa Encarnacion MD PCP - General 12/12/15
--- OUTSIDE RECORDS SUMMARY | 2024-09-08 20:38 | XMS_ITS | Referral Summary ---
Author Organization [facility] Address [address] [place] [address] Care Team Providers Care Section 8 Property Manager Name Role Phone Casa Encarnacion MD Primary Care Provider Source Comments [facility],non-owned Affiliates and Associated Physician Practices is amultiple site organization consisting of ambulatory clinics and hospital sitesin [place], [place], [place]. This disclosure is being madepursuant to the Care Everywhere program and may not contain all information available regarding this patient. Last updated 18.[facility] Encounters Date Type Department Care Team Description 08/09/2024 Refill [facility] - MINERALOGY TEACHER [address] [place] [address] Aye Dao MD Refill Request 08/09/2024 Telephone [facility] - MINERALOGY TEACHER [address] [place] [address] Aye Dao MD Medication Request from Last 3 Months Allergies Active Allergy Reactions Criticality Noted Date [...] be different from the original. Patient uses [employer]. 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
--- OUTSIDE RECORDS SUMMARY | 2024-09-08 20:39 | XMS_ITS | Encounter Summary ---
Author Organization [facility] Address [address] [place] [address] Care Team Providers Care Biologics Specialist Name Role Phone Casa Encarnacion MD Primary Care Provider Encounter Details Date Type Department Care Team (Latest Contact Info) Description 05/20/2023 Travel Social History Tobacco Use Types Packs/Day Years Used Date Smoking Tobacco: Never Smokeless Tobacco: Never Alcohol Use Standard Drinks/Week Comments No 0 (1 standard drink = 0.6 oz pur e alcohol) Sex and Gender Information Value Date Recorded Sex Assigned at Not on file Gender Identity Not on file Sexual Orientation Not on file documented as of this encounter Plan of Treatment Upcoming Encounters Date Type Department Care Team (Late st Contact Info) Description 05/24/2025 2:00 PM CDT Office Visit [facility] - DRAWER IN HAND [address] [facility] [address] [place] [address] Aye Dao MD [address] [facility] [address] [place] [address] documented as of this encounter Visit Diagnoses Not on filedocumented in this encounter Care Teams Biologics Specialist Relationship Specialty Start Date End Date Casa Encarnacion MD PCP - General 12/12/15 documented as of this encounter
--- OUTSIDE RECORDS SUMMARY | 2024-09-08 20:39 | XMS_ITS | Encounter Summary ---
Author Organization [facility] Address [address] [place] [address] Care Team Providers Care Composing Machine Operator/Tender Name Role Phone Casa Encarnacion MD Primary Care Provider [phone] Reason for Visit * Reason Onset Date Comments Concerns 05/16/2022 Encounter Details Date Type Department Care Team (Late st Contact Info) Description 05/16/2022 Telephone [facility] [address] [facility] [facility] [address] [place], [place] [id number] Aye Dao MD [address] [facility] [address] [place] [address] Concerns Social History Tobacco Use Types Packs/Day Years Used Date Smoking Tobacco: Never Smokeless Tobacco: Never Alcohol Use Standard Drinks/Week Comments No 0 (1 standard drink = 0.6 oz pur e alcohol) Sex and Gender Information Value Date Recorded Sex Assigned at Not on file Gender Identity Not on file Sexual Orientation Not on file documented as of this encounter Miscellaneous Notes * Telephone Encounter - Tobias Mora RN - 05/16/2022 10:52 AM CDT Luanne calls today w/ update. Already has open call from yesterday. This call closed. * Telephone Encounter - Kesha Mora - 05/16/2022 8:03 AM CDT Pt is calling and states she is wanting to speak with someone about her previous appointment. CB# [phone] documented in this encounter Plan of Treatment Upcoming Encounters Date Type Department Care Team (Late st Contact Info) Description 05/24/2025 2:00 PM CDT Office Visit [facility] - AREA MANAGER [address] [facility] [address] [place] [address] Aye Dao MD [address] [facility] [address] [place] [address] documented as of this encounter Visit Diagnoses Not on filedocumented in this encounter Care Teams Composing Machine Operator/Tender Relationship Specialty Start Date End Date Casa Encarnacion MD PCP - General 12/12/15 documented as of this encounter
--- OUTSIDE RECORDS SUMMARY | 2024-09-08 20:39 | XMS_ITS | Encounter Summary ---
Author Organization [facility] Address [address] [place] [address] Care Team Providers Care Generator Rebuilder Name Role Phone Casa Encarnacion MD Primary Care Provider [phone] Reason for Visit * Reason Comments Refill Request Encounter Details Date Type Department Care Team (Late st Contact Info) Description 09/18/2021 Refill [facility] [address] [facility] [address] [place] [address] Aye Dao MD [address] [facility] [address] [place] [address] Refill Request Social History Tobacco Use Types Packs/Day Years [...] encounter Miscellaneous Notes * Telephone Encounter - Iris Lundy LPN - 09/18/2021 11:57 AM APPLICATIONS PROGRAMMER ANALYST Last visit 06/28 Next visit 07/30 Last refill gabapentin 06/28 Will send refills ICATIONS PROGRAMMER ANALYST documented in this encounter Plan of Treatment Upcoming Encounters Date Type Department Care Team (Late st Contact Info) Description 05/24/2025 2:00 PM CDT Office Visit [facility] - CUPOLA HOIST OPERATOR [address], [facility] [address] [place] [address] Aye Dao MD [address] [facility] [facility] [address] [place] [address] documented as of this encounter Visit Diagnoses Diagnosis Vulvodynia documented in this encounter Care Teams Generator Rebuilder Relationship Specialty Start Date End Date Casa Encarnacion MD PCP - General 12/12/15 documented as of this encounter
--- OUTSIDE RECORDS SUMMARY | 2024-09-08 20:39 | XMS_ITS | Encounter Summary ---
Author Organization [facility] Health Address [address] [place] [address] Care Team Providers Care Dispensary Clerk Name Role Phone Casa Encarnacion MD Primary Care Provider [phone] Reason for Visit * Reason Comments Refill Request Encounter Details Date Type Department Care Team (Late st Contact Info) Description 05/06/2023 Refill [facility]IMAL STUNNER [address] [facility] [address] [place] [address] Aye Dao MD [address] [facility] [address] [place] [address] Refill Request Social History Tobacco [...] encounter Miscellaneous Notes * Telephone Encounter - Marilin Alvarado RN - 05/06/2023 1:54 PM CDT Compounded nystatin vaginal capsules Refilled through [facility] documented in this encounter Plan of Treatment Upcoming Encounters Date Type Department Care Team (Late st Contact Info) Description 05/24/2025 2:00 PM CDT Office Visit [facility] - ANIMAL STUNNER [address], [facility] 200 [place] [address] Aye Dao MD [address] [facility] [address] [place] [address] documented as of this encounter Visit Diagnoses Diagnosis History of candidiasis Personal history of other infectious and parasitic disease documented in this encounter Care Teams Dispensary Clerk Relationship Specialty Start Date End Date Casa Encarnacion MD PCP - General 12/12/15 documented as of this encounter
--- OUTSIDE RECORDS SUMMARY | 2024-09-08 20:39 | XMS_ITS | Encounter Summary ---
Author Organization [facility] Health Address [address] [place] [address] Care Team Providers Care Melon Packer Name Role Phone Casa Encarnacion MD Primary Care Provider [phone] Reason for Visit * Reason Onset Date Comments Refill Request 05/05/2024 Encounter Details Date Type Department Care Team (Late st Contact Info) Description 05/05/2024 Telephone [facility] - PRECISION INSTRUMENT MAKER [address] [facility] [address] [place] [address] Aye Dao MD [address] [facility] [address] [place] [address] Refill Request Social History Tobacco [...] Telephone Encounter - Iris Lundy LPN - 05/05/2024 12:06 PM CDT Last seen 06/2022 Next visit 05/2024 Last refill nystatin vaginal caps. Will send one refill only . If not seen at upcoming appt will be unable to send more refills Left the above message on her voice mail * Telephone Encounter - Celena King - 05/05/2024 11:15 AM CDT PT is calling to see if she can get a refill of her Nystatin. She has an appt on 06-01-24 and is asking for enough until that appt. [facility] C/B [phone] documented in this encounter Plan of Treatment Upcoming Encounters Date Type Department Care Team (Late st Contact Info) Description 05/24/2025 2:00 PM CDT Office Visit [facility] - PRECISION INSTRUMENT MAKER [address] [facility] 200 [place] [address] Aye Dao MD [address] [facility] [address] [place] [address] documented as of this encounter Visit Diagnoses Diagnosis History of candidiasis Personal history of other infectious and parasitic disease documented in this encounter Care Teams Melon Packer Relationship Specialty Start Date End Date Casa Encarnacion MD PCP - General 12/12/15 documented as of this encounter
--- OUTSIDE RECORDS SUMMARY | 2024-09-08 20:39 | XMS_ITS | Encounter Summary ---
Author Organization [facility] Health Address [address] [place] [address] Care Team Providers Care Nickel Plant Operator Name Role Phone Casa Encarnacion MD Primary Care Provider [phone] Reason for Visit * Reason Onset Date Comments Opened In Error 06/12/2023 Encounter Details Date Type Department Care Team (Late Contact Info) Description 06/12/2023 Telephone [facility] - OPTOMETRIST/PRACTICE OWNER [address], [facility] [address] [place] [address] Aye Dao MD [facility] [address] [address] Opened In Error Social History Tobacco Use Types Packs/Day Years [...] Encounters Date Type Department Care Team (Late Contact Info) Description 05/24/2025 2:00 PM CDT Office Visit [facility] - OPTOMETRIST/PRACTICE OWNER [address], [facility] [address] [place] [address] Aye Dao MD [address] [facility] 400 [place] [address] documented as of this encounter Visit Diagnoses Not on filedocumented in this encounter Care Teams Nickel Plant Operator Relationship Specialty Start Date End Date Casa Encarnacion MD PCP - General 12/12/15 documented as of this encounter
--- OUTSIDE RECORDS SUMMARY | 2024-09-08 20:39 | XMS_ITS | Encounter Summary ---
Author Organization [facility] Health Address [address] [facility] [address] Care Team Providers Care Switching Operator Name Role Phone Casa Encarnacion MD Primary Care Provider [phone] Reason for Visit * Reason Comments Refill Request Encounter Details Date Type Department Care Team (Late st Contact Info) Description 08/30/2023 Refill [facility] - CASH POSTING SPECIALIST [address] [facility] [address] [place] [address] Aye Dao MD [address] [facility] 400 [place] [address] Refill Request Social History Tobacco [...] encounter Miscellaneous Notes * Telephone Encounter - Yanira Galvan RN - 09/02/2023 10:49 AM EMT/DISPATCHER YAYO 08/2022, has a pending appointment for 09/11/2023. Refilled Gabapentin. /DISPATCHER documented in this encounter Plan of Treatment Upcoming Encounters Date Type Department Care Team (Late st Contact Info) Description 05/24/2025 2:00 PM CDT Office Visit [facility] - CASH POSTING SPECIALIST [address], [facility] 200 [place] [address] Aye Dao MD [address] [facility] 400 [place] [address] documented as of this encounter Visit Diagnoses Diagnosis Vulvodynia documented in this encounter Care Teams Switching Operator Relationship Specialty Start Date End Date Casa Encarnacion MD PCP - General 12/12/15 documented as of this encounter
--- OUTSIDE RECORDS SUMMARY | 2024-09-08 20:39 | XMS_ITS | Encounter Summary ---
Author Organization [facility] Address [address] [facility] [place] [address] Care Team Providers Care Lock And Dam Equipment Repairer Name Role Phone Casa Encarnacion MD Primary Care Provider [phone] Reason for Visit * Reason Onset Date Comments Vaginal Problem 05/20/2023 Encounter Details Date Type Department Care Team (Late st Contact Info) Description 05/20/2023 Telephone [facility] - HARDBOARD PRESS OPERATOR 10[address] [facility] 200 [place] [address] Aye Dao MD 10[address] [facility] 400 [place] [address] Vaginal Problem Social History Tobacco Use Types Packs/Day Years [...] Telephone Encounter - Marilin Alvarado RN - 05/20/2023 12:47 PM CDT Return call to patient Notified her available appointment with Dr Leonard 05/21 Agreeable Will call if she can't keep that appointment Also aware that using the nystatin vaginal suppository daily instead of at night might help with her complaint of waking up with return of vaginal burning * Telephone Encounter - Thania Slater - 05/20/2023 9:28 AM CDT Good morning, Patient of Dr. Leonard's calling today to check in after her correspondence with Marilin Henriquez yesterday. She notes she is in a lot of discomfort and would like to hear back from us as soon as possible today. She is still feeling a lot of vaginal burning, urgency and pressure. CB: [phone] Thank you so much documented in this encounter Plan of Treatment Upcoming Encounters Date Type Department Care Team (Late st Contact Info) Description 05/24/2025 2:00 PM CDT Office Visit [facility] - HARDBOARD PRESS OPERATOR [address], [facility] [address] [place] [address] Aye Dao MD [address] [facility] 400 [place] [address] documented as of this encounter Visit Diagnoses Not on filedocumented in this encounter Care Teams Lock And Dam Equipment Repairer Relationship Specialty Start Date End Date Casa Encarnacion MD PCP - General 12/12/15 documented as of this encounter
--- OUTSIDE RECORDS SUMMARY | 2024-09-08 20:39 | XMS_ITS | Encounter Summary ---
Author Organization [facility] Health Address [address] [facility] [place] [address] Care Team Providers Care Exterior Interior Specialist Name Role Phone Casa Encarnacion MD Primary Care Provider [phone] Reason for Visit * Reason Onset Date Comments Nurse Only 02/07/2022 Encounter Details Date Type Department Care Team (Late st Contact Info) Description 02/07/2022 Telephone [facility] [address] [place] [address] Aye Dao MD 1031 [facility] 400 [place] [address] Nurse Only Social History Tobacco Use Types Packs/Day Years [...] Telephone Encounter - Iris Lundy LPN - 02/07/2022 9:55 AM CDT I called the patient - left a message I will try back again later. I spoke with the patient - went to dr Belcher - has a UTI. Was given cipro 500 bid for 7 days. Burning all the time on the outside of the vagina. Did use the nystatin vaginal caps bid for a week. This was before her UTI. She started the antibiotic Friday. Got a full dose in. So has had 2 full days of antibiotics. I explained part of the burning maybe from the UTI. I instructed her to stop the vaginal medications for 2 days. Use the criscol as often as needed. But stop the nystatin for now. Lets let things be . See how the antibiotic helps her bladder. Then if the burning is not better Friday. Use the nystatin vaginal caps every night at bedtime for 5 nights in a row. If not better after that call me. If she is better Friday - then do NOT resume the nystating vaginal sup / caps until next week andonly do 2 x week. Patient voiced understanding , was able to repeat it back to me and is agreeable. * Telephone Encounter - Afsaneh Castillo - 02/07/2022 9:27 AM CDT Pt want to speak with nurse but refused details documented in this encounter Plan of Treatment Upcoming Encounters Date Type Department Care Team (Late st Contact Info) Description 05/24/2025 2:00 PM CDT Office Visit [facility] - FIELD ASSOCIATE [address], [facility] 200 [place] [address] Aye Dao MD [address] [facility] 400 [place] [address] documented as of this encounter Visit Diagnoses Not on filedocumented in this encounter Care Teams Exterior Interior Specialist Relationship Specialty Start Date End Date Casa Encarnacion MD PCP - General 12/12/15 documented as of this encounter
--- OUTSIDE RECORDS SUMMARY | 2024-09-08 20:39 | XMS_ITS | Encounter Summary ---
Author Organization [facility] Health Address [address] [place] [address] Care Team Providers Care Disabilities Caregiver Name Role Phone Casa Encarnacion MD Primary Care Provider [phone] Reason for Visit * Reason Onset Date Comments Patient Requested Call 07/17/2021 Encounter Details Date Type Department Care Team (Late st Contact Info) Description 07/17/2021 Telephone [facility] [address] [facility] [address] [place] [address] Aye Dao MD [address] [facility] [address] [place] [address] Patient Requested Call Social History Tobacco Use Types Packs/Day Years [...] Telephone Encounter - Iris Lundy LPN - 07/17/2021 10:15 AM YARD HAND I spoke with the patient - she wanted to be sure she is only to use 1 nystatin cap on Friday and nights ? I told her yes, she can carolina a big N on her calender for those days to help her remember If she has issues - she can use 1 vaginally every night for 5 nights or just call me . Patient voiced understanding , was able to repeat everything back to me and is agreeable HAND * Telephone Encounter - Hannah Mckeon - 07/17/2021 9:49 AM CST Pt is calling office in regards to a new medication she is taking and would like to speak with a nurse Pt CB# [phone] HAND documented in this encounter Plan of Treatment Upcoming Encounters Date Type Department Care Team (Late st Contact Info) Description 05/24/2025 2:00 PM CDT Office Visit [facility] - BENDER MACHINE OPERATOR [address] [facility], [facility] 200 [place] [address] Aye Dao MD [address] [facility] 400 [place] [address] documented as of this encounter Visit Diagnoses Not on filedocumented in this encounter Care Teams Disabilities Caregiver Relationship Specialty Start Date End Date Casa Encarnacion MD PCP - General 12/12/15 documented as of this encounter
--- OUTSIDE RECORDS SUMMARY | 2024-09-08 20:39 | XMS_ITS | Encounter Summary ---
Author Organization [facility] Health Address [address] [facility] [place] [address] Care Team Providers Care Account Contact Associate Name Role Phone Casa Encarnacion MD Primary Care Provider [phone] Reason for Visit * Reason Onset Date Comments Question 09/16/2022 Encounter Details Date Type Department Care Team (Late st Contact Info) Description 09/16/2022 Telephone [facility] [address] [place] [address] Aye Dao MD 1031 [facility] 400 [place] [address] Question Social History Tobacco Use Types Packs/Day Years [...] Telephone Encounter - Marilin Alvarado RN - 09/16/2022 3:13 PM GEOCHEMISTRY TEACHER Spoke to patient The test she would need is called a yeast swab She will try to get the swab done locally but it would not be until next week She will have the provider of that office get the results to Dr Leonard Provided Dr Leonard's phone and fax # if the provider has questions For now things have been a little better as she continues the gabapentin As these past days have been better She will continue the gabapentin TID The one nystatin vaginal at night Ice packs to area if pain burning come back For now hold on yeast swab We will use that if the severity returns like she experienced last week Agreeable HEMISTRY TEACHER * Telephone Encounter - Emi Rutledge - 09/16/2022 12:17 PM CST Pt calling to get the nurse to call her back Please contact CB# [phone] HEMISTRY TEACHER documented in this encounter Plan of Treatment Upcoming Encounters Date Type Department Care Team (Late st Contact Info) Description 05/24/2025 2:00 PM CDT Office Visit [facility] - INDUSTRIAL NURSE [address] [facility] [address] [place] [address] Aye Dao MD 1031 [facility] 400 [place] [address] documented as of this encounter Visit Diagnoses Not on filedocumented in this encounter Care Teams Account Contact Associate Relationship Specialty Start Date End Date Casa Encarnacion MD PCP - General 12/12/15 documented as of this encounter
--- OUTSIDE RECORDS SUMMARY | 2024-09-08 20:39 | XMS_ITS | Encounter Summary ---
Author Organization [facility] Address [address] [facility] [address] Care Team Providers Care Rag Willow Operator Name Role Phone Casa Encarnacion MD Primary Care Provider [phone] Reason for Visit * Reason Onset Date Comments Medication Problem 03/05/2022 Pt would like a Nurse call due to medication problem Encounter Details Date Type Department Care Team (Late st Contact Info) Description 03/05/2022 Telephone [facility] - GAMING FLOOR SUPERVISOR [address] [address] Aye Dao MD [address] [place] [address] Medication Problem (Pt would like a Nurse call due to medication problem) Social History Tobacco Use Types Packs/Day Years [...] Telephone Encounter - Marilin Alvarado RN - 03/06/2022 10:42 AM CDT Return call to patient Nystatin vaginal capsules one at night and one in the morning Vaginal insertion Finally got over UTI She reports she is not having burning so bad Just a little bit of burning PCP sent urine for culture Sunday 03/04 Results not yet back Encouraged ice packs during day as needed Agreeable Cool water tub every morning Sometimes adds baking soda. Not every time. Encouraged her to use the baking soda daily to the cool water Using crisco oh boy. If I have an infection, nystatin will get rid of the yeast assured this is correct. Pressure feeling on Friday made her feel bad. That is why she saw the PCP. To see Dr Leonard 07/09/2022 (RTO 1 year) Requests to be seen in May Plan 05/21. Mailing appointment reminder to her home address so she can coordinate a ride with her daughter. * Telephone Encounter - Tobias Ortiz - 03/05/2022 4:17 PM CDT Please call pt she feels medication isn't working Diflucan still experiencing discharge documented in this encounter Plan of Treatment Upcoming Encounters Date Type Department Care Team (Late st Contact Info) Description 05/24/2025 2:00 PM CDT Office Visit [facility] - GAMING FLOOR SUPERVISOR [address], [facility] 200 [place] [address] Aye Dao MD [address] [facility] [address] [place] [address] documented as of this encounter Visit Diagnoses Not on filedocumented in this encounter Care Teams Rag Willow Operator Relationship Specialty Start Date End Date Casa Encarnacion MD PCP - General 12/12/15 documented as of this encounter
--- OUTSIDE RECORDS SUMMARY | 2024-09-08 20:39 | XMS_ITS | Encounter Summary ---
Author Organization [facility] Health Address [address] [facility] [place] [address] Care Team Providers Care Cinetechnician Name Role Phone Casa Encarnacion MD Primary Care Provider [phone] Reason for Visit * Reason Comments Refill Request Encounter Details Date Type Department Care Team (Late st Contact Info) Description 02/05/2023 Refill [facility] - MID LEVEL DEVELOPER [address] [facility] [address] [place] [address] Aye Dao MD 10[address] [facility] [address] [place] [address] Refill Request Social History Tobacco [...] Telephone Encounter - Yanira Galvan RN - 02/05/2023 12:51 PM CDT YAYO 08/2022, NOV 09/2023. History of candidiasis.To use nystatin capsules vaginally with her frequent antibiotic use for UTIs. To use nightly while on antibiotics Refilled Nystatin oil caps to [facility] documented in this encounter Plan of Treatment Upcoming Encounters Date Type Department Care Team (Late st Contact Info) Description 05/24/2025 2:00 PM CDT Office Visit [facility] Group - MID LEVEL DEVELOPER [address], [facility] [address] [place] [address] Aye Dao MD 10[address] [facility] [address] [place] [address] documented as of this encounter Visit Diagnoses Diagnosis History of candidiasis Personal history of other infectious and parasitic disease documented in this encounter Care Teams Cinetechnician Relationship Specialty Start Date End Date Casa Encarnacion MD PCP - General 12/12/15 documented as of this encounter
--- OUTSIDE RECORDS SUMMARY | 2024-09-08 20:39 | XMS_ITS | Encounter Summary ---
Author Organization [facility] Health Address [address] [facility] [place] [address] Care Team Providers Care Casing Operator Name Role Phone Casa Encarnacion MD Primary Care Provider [phone] Reason for Visit * Reason Onset Date Comments Medication Issue 01/22/2022 Encounter Details Date Type Department Care Team (Late st Contact Info) Description 01/22/2022 Telephone [facility] [address] [place] [address] Aye Dao MD 10[address] [facility] [address] [place] [address] Medication Issue Social History Tobacco Use Types Packs/Day Years [...] Telephone Encounter - Tobias Mora RN - 01/22/2022 4:33 PM CDT Luanne agrees to Dr Zhao's message/ plan. Will use 2x/ day x 1 week, then call us back with an update if it doesn't work. * Telephone Encounter - Aye Zhao MD - 01/22/2022 3:13 PM CDT I did give her itraconazole in the past since the glabrata she had is resistant to fluconazole. However, the nystatin capsules work as well and are much safer. Her last yeast culture with us was negative. I recommend she use the nystatin capsule twice daily for a week. If this is yeast it will treat it. * Telephone Encounter - Tobias Mora RN - 01/22/2022 11:37 AM CDT Luanne started w/ burning & itching a week ago. Denies any new vag d/c. The same as always. PCP gave her 4-5 pills of Diflucan - took daily with no relief. Checked for UTI - Negative results. Nystatin vag insert - uses at night. Gets relief to sleep thru night. Tylenol - gives her about 3 hrs relief. ( Not complete relief) Gabapentin - has been on it for years. I don't miss a dose . Requesting medication to help w/ current burning. States Dr Zhao has given her another medication for buring in the past that's helped. Hoping to get script of same medication. Couldn't remember the name of it. * Telephone Encounter - Celena Jole - 01/22/2022 9:47 AM CDT Pt called in stating that she would like to speak to Dr Zhao's nurse because she has questions regarding her medications. Pt callback# [phone] documented in this encounter Plan of Treatment Upcoming Encounters Date Type Department Care Team (Late st Contact Info) Description 05/24/2025 2:00 PM CDT Office Visit [facility] - MANAGER CODE [address], [facility] 200 [place] [address] Aye Dao MD [address] [facility] 400 [place] [address] documented as of this encounter Visit Diagnoses Not on filedocumented in this encounter Care Teams Casing Operator Relationship Specialty Start Date End Date Casa Encarnacion MD PCP - General 12/12/15 documented as of this encounter
--- OUTSIDE RECORDS SUMMARY | 2024-09-08 20:39 | XMS_ITS | Encounter Summary ---
Author Organization [facility] Health Address [address] [place] [address] Care Team Providers Care Hourly Shift Manager Name Role Phone Casa Encarnacion MD Primary Care Provider [phone] Reason for Visit * Reason Comments Refill Request Encounter Details Date Type Department Care Team (Late st Contact Info) Description 06/10/2022 Refill [facility] [address] [facility] [address] [place] [address] Aye Dao MD [address] [facility] [address] [place] [address] Refill Request Social History Tobacco [...] encounter Miscellaneous Notes * Telephone Encounter - Aviva Chaidez - 06/10/2022 1:45 PM CDT Refill Request Luanne Gotti YAYO: 07/03/2021Jul due: 07/03/2022Jul Scheduled: 07/09/2022 LRF: 02/06/2022 Qty Disp: 30 capsules # of refills: 2 Provider from last visit: Dr.Lefevre Kev Davis Allergies: Allergies Allergen Reactions ??? Seasonal Other Sneezing Pended Medication Order: Requested Prescriptions Pending Prescriptions Disp Refills ??? nystatin (Mycostatin) powder [Pharmacy Med Name: NYSTATIN [id number] IN OIL CAPS CAPSULE] 30 Each 1 Sig: INSERT ONE CAPSULE IN THE VAGINA NIGHTLY DIRECTED. documented in this encounter Plan of Treatment Upcoming Encounters Date Type Department Care Team (Late st Contact Info) Description 05/24/2025 2:00 PM CDT Office Visit [facility] - LEAD APPLICATION ARCHITECT [address], [facility] [address] [place] [address] Aye Dao MD [address] [facility] [address] [place] [address] documented as of this encounter Visit Diagnoses Diagnosis History of candidiasis Personal history of other infectious and parasitic disease documented in this encounter Care Teams Hourly Shift Manager Relationship Specialty Start Date End Date Casa Encarnacion MD PCP - General 12/12/15 documented as of this encounter
--- OUTSIDE RECORDS SUMMARY | 2024-09-08 20:39 | XMS_ITS | Encounter Summary ---
Author Organization [facility] Health Address [address] [place] [address] Care Team Providers Care Environmental Professional Name Role Phone Casa Encarnacion MD Primary Care Provider Reason for Visit * Reason Onset Date Comments Medication Request 08/09/2024 Encounter Details Date Type Department Care Team (Late st Contact Info) Description 08/09/2024 Telephone [facility] - RUBBER VULCANIZING MACHINE OPERATOR [address] [facility] [address] [place] [address] Aye Dao MD [address] [facility] [address] [place] [address] Medication Request Social History Tobacco Use Types Packs/Day [...] Telephone Encounter - Marilin Alvarado RN - 08/09/2024 2:51 PM SCRAP METAL COLLECTOR Return call to patient Gabapentin refill sent today Agreeable and grateful P METAL COLLECTOR * Telephone Encounter - Hannah Mckeon - 08/09/2024 8:46 AM CST Pt is calling the office to request a refill from Dr Dao Pt CB# [phone] P METAL COLLECTOR documented in this encounter Plan of Treatment Upcoming Encounters Date Type Department Care Team (Late st Contact Info) Description 05/24/2025 2:00 PM CDT Office Visit [facility] - RUBBER VULCANIZING MACHINE OPERATOR [address] [facility] [address] [place] [address] Aye aDo MD [address] [facility] [address] [place] [address] documented as of this encounter Visit Diagnoses Not on filedocumented in this encounter Care Teams Environmental Professional Relationship Specialty Start Date End Date Casa Encarnacion MD PCP - General 12/12/15 documented as of this encounter
--- OUTSIDE RECORDS SUMMARY | 2024-09-08 20:39 | XMS_ITS | Encounter Summary ---
Author Organization [facility] Health Address [address] [place] [address] Care Team Providers Care Printer'S Devil Name Role Phone Casa Encarnacion MD Primary Care Provider Reason for Visit * Reason Comments Refill Request Encounter Details Date Type Department Care Team (Late st Contact Info) Description 02/06/2022 Refill [facility] [address] [facility] [address] [place] [address] Aye Dao MD [address] [facility] [address] [place] [address] Refill Request Social History Tobacco [...] Telephone Encounter - Marilin Alvarado RN - 02/06/2022 11:56 AM CDT Last seen 07/03/2021 Has 07/09/2021 pending Rx refill sent through [facility] after pharmacy fax'd request Nystatin capsules documented in this encounter Plan of Treatment Upcoming Encounters Date Type Department Care Team (Late st Contact Info) Description 05/24/2025 2:00 PM CDT Office Visit [facility] - TICKET CLERK [address], [facility] [address] [place] [address] Aye Dao MD [address] [facility] [address] [place] [address] documented as of this encounter Visit Diagnoses Diagnosis History of candidiasis Personal history of other infectious and parasitic disease documented in this encounter Care Teams Printer'S Devil Relationship Specialty Start Date End Date Casa Encarnacion MD PCP - General 12/12/15 documented as of this encounter
--- OUTSIDE RECORDS SUMMARY | 2024-09-08 20:39 | XMS_ITS | Encounter Summary ---
Author Organization [facility] Health Address [address] [facility] [place] [address] Care Team Providers Care Vice President Research Name Role Phone Casa Encarnacion MD Primary Care Provider [phone] Reason for Visit * Reason Comments Refill Request Encounter Details Date Type Department Care Team (Late st Contact Info) Description 08/26/2022 Refill [facility] [address] [facility] [address] [place] [address] Aye Dao MD [address] [facility] [address] [place] [address] Refill Request Social History Tobacco [...] Telephone Encounter - Marilin Alvarado RN - 08/26/2022 12:52 PM CIRCULATION CREW LEADER Compounded nystatin vaginal capsules Rx refill sent through [facility] after pharmacy fax'd request ULATION CREW LEADER documented in this encounter Plan of Treatment Upcoming Encounters Date Type Department Care Team (Late st Contact Info) Description 05/24/2025 2:00 PM CDT Office Visit [facility] - APPLICATION DEVELOPMENT INTERN [address] [facility] 200 [place] [address] Aye Dao MD [address] [facility] [address] [place] [address] documented as of this encounter Visit Diagnoses Diagnosis History of candidiasis Personal history of other infectious and parasitic disease documented in this encounter Care Teams Vice President Research Relationship Specialty Start Date End Date Casa Encarnacion MD PCP - General 12/12/15 documented as of this encounter
--- OUTSIDE RECORDS SUMMARY | 2024-09-08 20:39 | XMS_ITS | Encounter Summary ---
Author Organization [facility] Health Address [address] [place] [address] Care Team Providers Care Steel Cutter Name Role Phone Casa Encarnacion MD Primary Care Provider [phone] Reason for Visit * Reason Onset Date Comments Medication Side Effect 03/13/2022 Encounter Details Date Type Department Care Team (Late st Contact Info) Description 03/13/2022 Telephone [facility] [address] [place] [address] Aye Dao MD [address] [address] Medication Side Effect Social History Tobacco Use Types Packs/Day Years [...] Telephone Encounter - Tobias Mora RN - 03/13/2022 5:15 PM CDT Took Nystatin capsules 2 times a day. She stopped them for a week bc she didn't have symptoms. Her symptoms came back - burning and other symptoms- so restarted a week ago. Feels it's helping her symptoms. Enc'd her to keep taking Nystatin capsules even if she's not having symptoms. Will see Dr Leonard in May to /. She doesn't want to go back on the Diflucan. Verbalized the Diflucan really didn't work for her. We discussed the heat is pretty hard right now and Yeast loves hot weather. Need to be doing all you can to make sure yeast doesn't come back. Verbalized understanding. Agrees to plan. * Telephone Encounter - Afsaneh Castillo - 03/13/2022 12:15 PM CDT Pt is calling in regards to medication.Diflucan documented in this encounter Plan of Treatment Upcoming Encounters Date Type Department Care Team (Late st Contact Info) Description 05/24/2025 2:00 PM CDT Office Visit [facility] - LEATHER PARTS MATCHER [address] [facility] 200 [place] [address] Aye Dao MD [address] [facility] [address] [place] [address] documented as of this encounter Visit Diagnoses Not on filedocumented in this encounter Care Teams Steel Cutter Relationship Specialty Start Date End Date Casa Encarnacion MD PCP - General 12/12/15 documented as of this encounter
--- OUTSIDE RECORDS SUMMARY | 2024-09-08 20:39 | XMS_ITS | Encounter Summary ---
Author Organization [facility] Health Address [address] [place] [address] Care Team Providers Care Mutuel Teller Name Role Phone Casa Encarnacion MD Primary Care Provider [phone] Reason for Visit * Reason Onset Date Comments Med Question 09/24/2022 Encounter Details Date Type Department Care Team (Late st Contact Info) Description 09/24/2022 Telephone [facility] [address] [facility] [address] [place], [place] [id number] Aye Dao MD [address] [facility] [address] [place] [address] Med Question Social History Tobacco Use Types Packs/Day [...] Telephone Encounter - Tobias Mora RN - 09/24/2022 9:44 AM CST Luanne says she's doing better. Feels Gabapentin is really helping . Using Nystatin nightly. Grateful she isn't in pain like she was 2 weeks ago. Not using ice packs and not needing them. Explained no need to get yeast culture now if doing better. Per plan from last week, only need to get culture if the pain returns like you felt it 2 weeks ago. She verbalized understanding. Agrees to plan. L DIPPER * Telephone Encounter - Thania Slater - 09/24/2022 9:14 AM CST Pt calling to ask about her culture. She wants to know if Dr. Zhao would allow her to get it done closer to her home in [place], [place] CB: [phone] Thank you L DIPPER documented in this encounter Plan of Treatment Upcoming Encounters Date Type Department Care Team (Late st Contact Info) Description 05/24/2025 2:00 PM CDT Office Visit [facility] - SOLUTION STRATEGIST [address], [facility] [address] [place] [address] Aye Dao MD [address] [place] [address] documented as of this encounter Visit Diagnoses Not on filedocumented in this encounter Care Teams Mutuel Teller Relationship Specialty Start Date End Date Casa Encarnacion MD PCP - General 12/12/15 documented as of this encounter
--- OUTSIDE RECORDS SUMMARY | 2024-09-08 20:39 | XMS_ITS | Encounter Summary ---
Author Organization [facility] Health Address [address] [place] [address] Care Team Providers Care Atomic Fuel Assembler Name Role Phone Casa Encarnacion MD Primary Care Provider [phone] Reason for Visit * Reason Onset Date Comments Med Question 09/27/2022 Results 09/27/2022 Encounter Details Date Type Department Care Team (Late st Contact Info) Description 09/27/2022 Telephone [facility] [address] [facility] [address] [place] [address] Aye Dao MD [address] [facility] [address] [place] [address] Med Question; Results Social History Tobacco Use Types Packs/Day Years [...] Telephone Encounter - Tobias Mora RN - 09/27/2022 2:10 PM CST C/o UTI symptoms started yesterday. PCP did a Ur Cx and yeast cx at same time bc we asked for one. They went ahead and started her on Cipro. Yesterday, felt like yeast was coming back r/t burning when [place] went to [place], but today she is better. Now thinks it was just bladder infection. Getting relief w/ Nystatin. They should fax results to us. I told Luanne it will take at least a week or up to 2 weeks. ION ADVISER * Telephone Encounter - Thania Slater - 09/27/2022 11:09 AM CST CB: [phone] Pt had a urine culture in [place], [place] with a nurse practioner today for a possible infection. Pt says the ALLOCATION ANALYST told her the results would be available by early next week. She kindly asked to please let Dr. Zhao know that they will be forwarding a copy of her results to us as well. She would like to know what Dr. Zhao would like for her to do based on the results when they arrive. Thank you so much ION ADVISER documented in this encounter Plan of Treatment Upcoming Encounters Date Type Department Care Team (Late st Contact Info) Description 05/24/2025 2:00 PM CDT Office Visit [facility] - OBJECTS CONSERVATOR [address], [facility] 200 [place] [address] Aye Dao MD [address] [facility] [address] [place] [address] documented as of this encounter Visit Diagnoses Not on filedocumented in this encounter Care Teams Atomic Fuel Assembler Relationship Specialty Start Date End Date Casa Encarnacion MD PCP - General 12/12/15 documented as of this encounter
--- OUTSIDE RECORDS SUMMARY | 2024-09-08 20:39 | XMS_ITS | Encounter Summary ---
Author Organization [facility] Health Address [address] [facility] [place] [address] Care Team Providers Care Radiologic Electronic Specialist Name Role Phone Casa Encarnacion MD Primary Care Provider Reason for Visit * Reason Comments Refill Request Encounter Details Date Type Department Care Team (Late st Contact Info) Description 12/13/2023 Refill [facility] - SPORTS BOOK WRITER [address] [facility] [facility] [address] [place] [address] Aye Dao MD [address] [facility] [address] [place] [address] Refill Request Social History Tobacco [...] Telephone Encounter - Marilin Alvarado RN - 12/15/2023 10:11 AM CDT Gabapentin 300 mg capsule Two capsules by mouth 3 times a day (6 capsules a day.1800 mg daily) 540 for 90 day supply Last filled 09/02/2023 90 day supply sent today Patient last seen 08/28/2022 documented in this encounter Plan of Treatment Upcoming Encounters Date Type Department Care Team (Late st Contact Info) Description 05/24/2025 2:00 PM CDT Office Visit [facility] - SPORTS BOOK WRITER [address], [facility] [address] [place] [address] Aye Dao MD [address] [facility] [address] [place] [address] documented as of this encounter Visit Diagnoses Diagnosis Vulvodynia documented in this encounter Care Teams Radiologic Electronic Specialist Relationship Specialty Start Date End Date Casa Encarnacion MD PCP - General 12/12/15 documented as of this encounter
--- OUTSIDE RECORDS SUMMARY | 2024-09-08 20:39 | XMS_ITS | Encounter Summary ---
Author Organization [facility] Health Address [address] [facility] [place] [address] Care Team Providers Care Gizzard Peeler Name Role Phone Casa Encarnacion MD Primary Care Provider [phone] Reason for Visit * Reason Onset Date Comments Pain Vaginal 05/19/2023 Concerns 05/19/2023 Encounter Details Date Type Department Care Team (Late st Contact Info) Description 05/19/2023 Telephone [facility] - DEBONER [address] [facility] [address] [place] [address] Aye Dao MD [address] [facility] [address] [place] [address] Pain Vaginal; Concerns Social History Tobacco Use Types Packs/Day [...] Encounter - Marilin Alvarado RN - 05/20/2023 12:58 PM CDT This encounter closed. Patient called back 05/20/2023 * Telephone Encounter - Marilin Alvarado RN - 05/19/2023 4:46 PM CDT Return call to patient Feels pressure The local doctor did check, ruled out Urinary Tract Infection Will update Dr Leonard of this additional information and be back in touch with patient tomorrow * Telephone Encounter - aNa Munoz - 05/19/2023 4:10 PM CDT PT calling wanting to add that she forgot to let nurse know that she also feels pressure. PT requesting a call back. PT CB# [phone] * Telephone Encounter - Marilin Alvarado RN - 05/19/2023 3:26 PM CDT Return call to patient Using nystatin vaginal suppository at night But still feels as soon as she gets up in the morninng The vaginal burning starts back up Continues the gabapentin (takes 6 a day per patient) two 300 mg capsules morning, noon and night She asks if taking a second vaginal suppository at night would help her? Discouraged that. If she is sleeping fine through the night, additional suppository at night will not address the return in the day of the vaginal burning Maybe she can use a vaginal suppository in the morning? Will check in with Dr Leonard and be back in touch with patient agreeable * Telephone Encounter - Naa Munoz - 05/19/2023 1:02 PM CDT PT calling into office with complaints of vaginal burning and pain. PT would like to speak with nurse. PT CB# [phone] documented in this encounter Plan of Treatment Upcoming Encounters Date Type Department Care Team (Late st Contact Info) Description 05/24/2025 2:00 PM CDT Office Visit [facility] - DEBONER [address], [facility] 200 [place] [address] Aye Dao MD [address] [facility] [address] [place] [address] documented as of this encounter Visit Diagnoses Not on filedocumented in this encounter Care Teams Gizzard Peeler Relationship Specialty Start Date End Date Casa Encarnacion MD PCP - General 12/12/15 documented as of this encounter
--- OUTSIDE RECORDS SUMMARY | 2024-09-08 20:39 | XMS_ITS | Encounter Summary ---
Author Organization [facility] Health Address [address] [facility] [place] [address] Care Team Providers Care Goodyear Welter Name Role Phone Casa Encarnacion MD Primary Care Provider [phone] Reason for Visit * Reason Onset Date Comments Nurse Only 05/15/2022 Patient Requested Call 05/15/2022 Encounter Details Date Type Department Care Team (Late st Contact Info) Description 05/15/2022 Telephone [facility] [address] [place], [place] [id number] Aye Dao MD [address] [facility] [address] [place] [address] Nurse Only; Patient Requested Call Social History Tobacco Use [...] Telephone Encounter - Marilin Alvarado RN - 05/20/2022 12:55 PM CDT Said she can't do the video visit tomorrow Will cancel She states she would rather be seen in person Will keep the already scheduled 07/09/2022 visit Aware 10:30 am * Telephone Encounter - Hnanah Mckeon - 05/20/2022 8:21 AM CDT Pt is calling office and she would like to speak with a nurse Pt CB# [phone] * Telephone Encounter - Tobias Mora RN - 05/16/2022 11:07 AM CDT Luanne called this am w/ update: Using nystatin every other night and feels this is keeping everything under control. Using Gabapentin every day - 4 pills daily: am, noon, and 2 pills at HS. ?? She agrees to update Dr Zhao with anything further next week at her appointment. ?? Reviewed: DR Zhao is willing to try video visit next week. If it doesn't work out, she will still need to come into office and be seen. ?? Ms. Stroud verbalized understanding. She will have one of her daughters with her next week to help navigate the appointment. ?? Reminded her she will need code sent to [employer] so which ever dtr gets [employer] messages will need to give her the code. * Telephone Encounter - Tobias Mora RN - 05/16/2022 10:49 AM CDT isocket message sent with Dr Zhao's message and further instructions for upcoming Virtual visit. * Telephone Encounter - Aye Zhao MD - 05/16/2022 10:32 AM CDT Let her know we can give it a try. I do not usually do tele visit but we will see how it works. * Telephone Encounter - Tobias Mora, RN - 05/15/2022 3:19 PM CDT Pt would like to convert her upcoming appt to virtual visit. She just got mychart access with her dtr's help. Advised: will check and see if this is still possible. I thought virtual visits across state lines may have ended. Advised: I've sent a test message. Pls send back to confirm you can see [employer] messages. Advised: last seen last year. Will check with Dr Zhao and see if this is okay for an annual visit. * Telephone Encounter - Maddy Wild - 05/15/2022 11:39 AM CDT Pt calling to speak to a nurse regarding virtual appt documented in this encounter Plan of Treatment Upcoming Encounters Date Type Department Care Team (Late st Contact Info) Description 05/24/2025 2:00 PM CDT Office Visit [facility] - NOVELTIES SALES REPRESENTATIVE [address] [facility] [address] [place] [address] Aye Dao MD [address] [facility] [address] [place] [address] documented as of this encounter Visit Diagnoses Not on filedocumented in this encounter Care Teams Goodyear Welter Relationship Specialty Start Date End Date Casa Encarnacion MD PCP - General 12/12/15 documented as of this encounter
--- OUTSIDE RECORDS SUMMARY | 2024-09-08 20:39 | XMS_ITS | Encounter Summary ---
Author Organization [facility] Health Address [address] [facility] [place] [address] Care Team Providers Care Cavity Pump Operator Name Role Phone Casa Encarnacion MD Primary Care Provider [phone] Reason for Visit * Reason Onset Date Comments Refill Request 02/10/2024 Encounter Details Date Type Department Care Team (Late st Contact Info) Description 02/10/2024 Telephone [facility] - LUBRICATION SERVICER [address] [facility] 200 [place] [address] Aye Dao MD [address] [facility] 400 [place] [address] Refill Request Social History Tobacco [...] Telephone Encounter - Marilin Alvarado RN - 02/10/2024 2:00 PM CDT Nystatin vaginal capsules refill Through [facility] Will hope to see Dr Leonard but reports so much going on with her medically Kidney stones and cataract surgery Will send refill to Brett who mails the medication to patient Patient will hope to schedule follow up visit with Dr Leonard (but not before then end of summer per patient) * Telephone Encounter - Emi Rutledge - 02/10/2024 1:53 PM CDT Pt calling to get a refill on her nystatin,. CB# [phone] documented in this encounter Plan of Treatment Upcoming Encounters Date Type Department Care Team (Late st Contact Info) Description 05/24/2025 2:00 PM CDT Office Visit [facility] - LUBRICATION SERVICER [address] [facility] 200 [place] [address] Aye Dao MD [address] [facility] 400 [place] [address] documented as of this encounter Visit Diagnoses Diagnosis History of candidiasis Personal history of other infectious and parasitic disease documented in this encounter Care Teams Cavity Pump Operator Relationship Specialty Start Date End Date Casa Encarnacion MD PCP - General 12/12/15 documented as of this encounter
--- OUTSIDE RECORDS SUMMARY | 2024-09-08 20:39 | XMS_ITS | Encounter Summary ---
Author Organization [facility] Address [address] [facility] [place] [address] Care Team Providers Care Project Leader Name Role Phone Casa Encarnacion MD Primary Care Provider Encounter Details Date Type Department Care Team (Latest Contact Info) Description 02/18/2024 Travel Social History Tobacco Use Types Packs/Day [...] CDT Office Visit [facility] - MALT SPECIFICATIONS CONTROL ASSISTANT [address] [facility] [address] [place] [address] Aye Dao MD [address] [facility] [address] [place] [address] documented as of this encounter Visit Diagnoses Not on filedocumented in this encounter Care Teams Project Leader Relationship Specialty Start Date End Date Casa Encarnacion MD PCP - General 12/12/15 documented as of this encounter
--- OUTSIDE RECORDS SUMMARY | 2024-09-08 20:39 | XMS_ITS | Encounter Summary ---
Author Organization [facility] Address [address] [facility] [place] [address] Care Team Providers Care Squeegee Finisher Name Role Phone Casa Encarnacion MD Primary Care Provider [phone] Reason for Visit * Reason Comments Follow-up Encounter Details Date Type Department Care Team (Late st Contact Info) Description 06/01/2024 1:00 PM CDT Office Visit [facility] - SALES REPRESENTATIVE MEATS [address] [facility] [address] [place] [address] Aye Dao MD [address] [facility] [address] [place] [address] Vulvodynia (Primary Dx); History of candidiasis Social History Tobacco Use Types Packs/Day Years [...] on file documented as of this encounter Last Filed Vital Signs Vital Sign Reading Time Taken Comments Blood Pressure 118/70 06/01/2024 12:55 PM CDT Pulse - - Temperature 36.5 ??C (97.7 ??F) 06/01/2024 12:55 PM C DT Respiratory Rate - - Oxygen Saturation - - Inhaled Oxygen Concentration - - Weight 59.4 kg (131 lb) 06/01/2024 12:55 PM CDT Height 167.6 cm (5' 6 ) 06/01/2024 12:55 PM CDT Body Mass Index 21.14 06/01/2024 12:55 PM CDT documented in this encounter Progress Notes * Aye Dao MD - 06/01/2024 1:00 PM CDT [facility] Return Visit Date: 06/01/2024 Allergies: Allergies Allergen Reactions Seasonal Other Sneezing VS: BP 118/70 Temp 97.7 ??F (36.5 ??C) Ht 1.676 m (5' 6 ) Wt 59.4 kg (131 lb) Treatment(s): gabapentin, nystatin capsules Status: stable Subjective: 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 Is using nystatin vaginal capsules when placed on antibiotics. Really likes the nystatin capsules as they reallyhelp. Is currently on gabapentin 300 mg, one at breakfast and lunch and two at bedtime, occasionally will take an additional one. Is doing well and burning controlled. Symptoms: (None=0; 10=Severe) Dyspareunia: Entry:not active Burning after intercourse:n/a Vaginal discharge: 0 Vulvar burnin Vulvar itchin Clitoral pain: 0 Vulvar pain: 0 Urinary symptoms: 0 Correct product use: VCG followed on all aspects: Good compliance Vulvar Examination: Normal anatomy. No pain with palpation. Tissues look good Cultures collected: none Biopsy: Impression/Plan: 1. Vulvodynia Gabapentin 300 mg in the morning, 300 mg at lunch 600 mg at bedtime. Script for 600 mg TID sent in so she can add the additional if needed. New prescription sent in 2. History of candidiasis- multiple negative cultures To use nystatin capsules vaginally with her frequent antibiotic use for UTIs. To use nightly while on antibiotics Refills sent into [facility] 3. F/U in 12 months Per patient request, talked with both daughters about her conditions and explained treatment plan. documented in this encounter Plan of Treatment Upcoming Encounters Date Type Department Care Team (Late st Contact Info) Description 05/24/2025 2:00 PM CDT Office Visit [facility] - SALES REPRESENTATIVE MEATS [address], [facility] [address] [place] [address] Aye Dao MD [address] [facility] [address] [place] [address] documented as of this encounter Visit Diagnoses Diagnosis Vulvodynia- Primary History of candidiasis Personal history of other infectious and parasitic disease documented in this encounter Care Teams Squeegee Finisher Relationship Specialty Start Date End Date Casa Encarnacion MD PCP - General 12/12/15 documented as of this encounter
--- OUTSIDE RECORDS SUMMARY | 2024-09-08 20:39 | XMS_ITS | Encounter Summary ---
Author Organization [facility] Address [address] [facility] [place] [address] Care Team Providers Care Fire Dispatcher Name Role Phone Casa Encarnacion MD Primary Care Provider [phone] Reason for Visit * Reason Onset Date Comments Question 05/06/2024 Encounter Details Date Type Department Care Team (Late st Contact Info) Description 05/06/2024 Telephone [facility] - CATERER HELPER [address] [facility] [address] [place] [address] Aye Dao MD [address] [facility] [address] [place] [address] Question Social History Tobacco Use [...] Telephone Encounter - Marilin Alvarado RN - 05/06/2024 9:13 AM CDT Return call to patient Confirmed that [facility] received the script for nystatin from Dr Leonard yesterday She can contact [facility] if she does not hear from them today for payment and delivery options of the Nystatin Patient states she is planning on the Dr Leonard follow up appointment scheduled for 06/01/2024 * Telephone Encounter - Emi Rutledge - 05/06/2024 8:12 AM CDT Pt calling nto make sure her RX (Nystation) has been called into the [facility] Please contact [facility] CB# [phone] . documented in this encounter Plan of Treatment Upcoming Encounters Date Type Department Care Team (Late st Contact Info) Description 05/24/2025 2:00 PM CDT Office Visit [facility] - CATERER HELPER [address] [facility] 200 [place] [address] Aye Dao MD [address] [facility] [address] [place] [address] documented as of this encounter Visit Diagnoses Not on filedocumented in this encounter Care Teams Fire Dispatcher Relationship Specialty Start Date End Date Casa Encarnacion MD PCP - General 12/12/15 documented as of this encounter
--- OUTSIDE RECORDS SUMMARY | 2024-09-08 20:39 | XMS_ITS | Encounter Summary ---
Author Organization [facility] Address [address] [facility] [address] Care Team Providers Care Tenter Feeder Name Role Phone Casa Encarnacion MD Primary Care Provider Reason for Visit * Reason Onset Date Comments Refill Request 11/13/2023 Encounter Details Date Type Department Care Team (Late st Contact Info) Description 11/13/2023 Telephone [facility] - CORN CHIP MAKER [address] [facility] [address] [place] [address] Aye Dao MD [address] [facility] [address] [place] [address] Refill Request Social History Tobacco [...] Telephone Encounter - Marilin Alvarado RN - 11/13/2023 9:51 AM CAMELID FIBER SORTER Spoke with patient We will send the refill today to [facility] for the Nystatin vaginal capsules #30 Patient last seen Aug 2022 (was not able to keep her Sep 2023 visit) We will check in with Dr Leonard It may be that patient will need to be seen before future refills authorized LID FIBER SORTER * Telephone Encounter - Rashida Santooy - 11/13/2023 9:30 AM CST Pt called and stated she is needing a refill on prescription nystatin. CB [phone] LID FIBER SORTER documented in this encounter Plan of Treatment Upcoming Encounters Date Type Department Care Team (Late st Contact Info) Description 05/24/2025 2:00 PM CDT Office Visit [facility] - CORN CHIP MAKER [address] [facility] [address] [place] [address] Aye Dao MD [address] [facility] [address] [place] [address] documented as of this encounter Visit Diagnoses Diagnosis History of candidiasis Personal history of other infectious and parasitic disease documented in this encounter Care Teams Tenter Feeder Relationship Specialty Start Date End Date Casa Encarnacion MD PCP - General 12/12/15 documented as of this encounter
--- OUTSIDE RECORDS SUMMARY | 2024-09-08 20:39 | XMS_ITS | Encounter Summary ---
Author Organization [facility] Address [address] [place] [address] Care Team Providers Care Pattern Maker Name Role Phone Casa Encarnacion MD Primary Care Provider [phone] Reason for Visit * Reason Onset Date Comments Encounter Opened In Error 03/26/2023 Encounter Details Date Type Department Care Team (Late Contact Info) Description 03/26/2023 Telephone [facility] - MICROSOFT DEVELOPER [address] [facility] [address] [place] [address] Aye Dao MD [address] [facility] [address] [place] [address] Encounter Opened In Error Social History Tobacco Use [...] encounter Miscellaneous Notes * Telephone Encounter - Dipti Shah - 03/26/2023 10:13 AM CDT error documented in this encounter Plan of Treatment Upcoming Encounters Date Type Department Care Team (Late Contact Info) Description 05/24/2025 2:00 PM CDT Office Visit [facility] - MICROSOFT DEVELOPER [address], [place] [address] [place] [address] Aye Dao MD [address] [facility] [address] [place] [address] documented as of this encounter Visit Diagnoses Not on filedocumented in this encounter Care Teams Pattern Maker Relationship Specialty Start Date End Date Casa Encarnacion MD PCP - General 12/12/15 documented as of this encounter
--- OUTSIDE RECORDS SUMMARY | 2024-09-08 20:39 | XMS_ITS | Encounter Summary ---
Author Organization [facility] Address [address] [place] [place] [address] Care Team Providers Care Administrative Liaison Name Role Phone Casa Encarnacion MD Primary Care Provider [phone] Reason for Visit * Reason Onset Date Comments Med Question 08/19/2022 Encounter Details Date Type Department Care Team (Late st Contact Info) Description 08/19/2022 Telephone [facility] [address] [facility] [address] [place], [place] [id number] Aye Dao MD [address] [facility] [address] [address] [place] [address] Med Question Social History Tobacco [...] Telephone Encounter - Marilin Alvarado RN - 08/20/2022 1:44 PM STONEWORK TRACER Return call to patient Notified her of the Dr Leonard reply She verbalizes and repeats back that she is to use the nystatin vaginal capsules for 7 nights in a row if she does think it to be yeast issue. Reviewed: The last culture was actually negative for yeast. The culture in the past that was positive, showed that the favian albicans yeast she had was totally resistant to the fluconazole. So she does not need to ever get this again. She states she has to get to another appointment but understands to use the nystatin and is grateful for the return call. EWORK TRACER * Telephone Encounter - Radha Baker - 08/20/2022 10:37 AM CST Pt called back stating that the Nystatin is actually causing a burning sensation. Pt is still requesting Diflucan. Pt can be reached at . EWORK TRACER * Telephone Encounter - Aye Leonard MD - 08/20/2022 10:27 AM STONEWORK TRACER If she thinks she has a yeast infection she needs to use the nystatin vaginal capsule 7 nights in arow. The last culture was actually negative for yeast. The culture in the past that was positive, showed that the favian albicans yeast she had was totally resistant to the fluconazole. So she does not need to ever get this again. EWORK TRACER * Telephone Encounter - Marilin Alvarado RN - 08/19/2022 4:42 PM STONEWORK TRACER Return call to patient When asked what makes her think its a yeast infection She says Oh I don't know. I can always kind of tell when I have one Describes Burning in the vaginal area A little bit of discharge Feels the nystatin vaginal capsules helped at first but not lately For now encouraged use of frozen vegetable packs PRN Will discuss with Dr Leonard and be back in touch with patient tomorrow Agreeable EWORK TRACER * Telephone Encounter - Thania Slater - 08/19/2022 3:32 PM CST Pt called and asked to have Dr. Leonard's nurse to please call her. She says her Nystatin is not working. Pt said she has used Diflucan in the past and had successful results. CB: [phone] Thank you EWORK TRACER documented in this encounter Plan of Treatment Upcoming Encounters Date Type Department Care Team (Late st Contact Info) Description 05/24/2025 2:00 PM CDT Office Visit [facility] - IRRIGATOR GRAVITY FLOW [address] [facility], [facility] [address] [place] [address] Aye Dao MD [address] [facility] [address] [place] [address] documented as of this encounter Visit Diagnoses Not on filedocumented in this encounter Care Teams Administrative Liaison Relationship Specialty Start Date End Date Casa Encarnacion MD PCP - General 12/12/15 documented as of this encounter
--- OUTSIDE RECORDS SUMMARY | 2024-09-08 20:39 | XMS_ITS | Encounter Summary ---
Author Organization [facility] Address [address] [place] [address] Care Team Providers Care Insurance Agents Supervisor Name Role Phone Casa Encarnacion MD Primary Care Provider [phone] Reason for Visit * Reason Comments Refill Request Encounter Details Date Type Department Care Team (Late st Contact Info) Description 08/09/2024 Refill [facility] - ASSISTIVE TECHNOLOGY SPECIALIST [address] [facility] [address] [place] [address] Aye Dao MD [address] [facility] [address] [place] [address] Refill Request Social History Tobacco [...] Encounter - Marilin Alvarado RN - 08/09/2024 2:03 PM WEDDING DAY COORDINATOR Last seen 06/01/2024 Per that note: Vulvodynia Gabapentin 300 mg in the morning, 300 mg at lunch 600 mg at bedtime. Script for 600 mg TID sent in so she can add the additional if needed. Rx refill sent through [employer] after pharmacy fax'd request ING DAY COORDINATOR documented in this encounter Plan of Treatment Upcoming Encounters Date Type Department Care Team (Late st Contact Info) Description 05/24/2025 2:00 PM CDT Office Visit [facility] - ASSISTIVE TECHNOLOGY SPECIALIST [address], [facility] [address] [place] [address] Aye Dao MD [address] [facility] [address] [place] [address] documented as of this encounter Visit Diagnoses Diagnosis Vulvodynia documented in this encounter Care Teams Insurance Agents Supervisor Relationship Specialty Start Date End Date Casa Encarnacion MD PCP - General 12/12/15 documented as of this encounter
--- OUTSIDE RECORDS SUMMARY | 2024-09-08 20:39 | XMS_ITS | Encounter Summary ---
Author Organization [facility] Address [address] [place] [address] Care Team Providers Care Produce Team Member Name Role Phone Casa Encarnacion MD Primary Care Provider [phone] Reason for Visit * Reason Onset Date Comments Question 09/11/2022 Encounter Details Date Type Department Care Team (Late st Contact Info) Description 09/11/2022 Telephone [facility] [address] [facility] [address] [place] [address] Aye Dao MD [address] [facility] [address] [place] [address] Question Social History Tobacco Use [...] Telephone Encounter - Marilin Alvarado RN - 09/11/2022 1:20 PM INTRANET SPECIALIST Notified patient of the reply from Dr Leonard She is fearful not using nystatin vaginal capsules will lead to worse flare up Reminded her that the overuse, using more than directed actually can create worse symptoms And for the amount of Nystatin she has used, we do not believe yeast an issue She worries pain/burning will continue She is to call next week with an update Reviewed if the pain does continue, giving gabapentin 600 mg TID another week of building up in hersystem, we will need a yeast culture but not before at least 7 days of being off the nystatin. Patient anxious about trying to get to [facility] to see Dr Leonard. Wonders if her doctor could do the swab for yeast. Aware we will see how she is doing next week. Again suggested frozen vegetables for relief ANET SPECIALIST * Telephone Encounter - Marilin Alvarado RN - 09/11/2022 12:12 PM INTRANET SPECIALIST Per Dr Leonard: She needs to stop the nystatin vaginal capsules. ??Using too many can cause more irritation. Her last yeast culture was negative and with all the nystatin she has been using she does not have yeast. If still with increase in pain next week or so, will need to come in for a yeast culture having stayed off the nystatin vaginal capsules. The increase in her gabapentin to 600 mg three times a day should be building up in her system and beginning to help decrease the burning. ANET SPECIALIST * Telephone Encounter - Marilin Alvarado RN - 09/11/2022 11:14 AM INTRANET SPECIALIST Return call Spoke to patient Has complaint of vaginal pain Used 3 nystatin vaginal capsules this morning with no relief Reminded her we would not expect relief with increased use of the vaginal suppositories Those are to be used only one nightly Reviewed no more fluconazole The positive yeast culture she had in the past showed resistance to fluconazole so not appropriate to use that Informed her a Yeast culture may be needed Whether she sees a local provider or urgent care Declines Reports her local provider is out Using Ibuprofen and tylenol for the discomfort Suggested use of 2 or 3 teaspoons of frozen peas or frozen corn in a sandwich baggie placed at areaof discomfort (instead of trying to use whole bag of frozen vegetables) Will update Dr Leonard Return call to confirm if patient taking the gabapentin? She reports yes, gabapentin 600 mg TID ANET SPECIALIST * Telephone Encounter - Lucie Capellan - 09/11/2022 11:07 AM CST Pt called with concern about some symptoms she is having and says she may need medication. Pt did not share specifics. Wants to speak with a nurse. CB #[phone] ANET SPECIALIST documented in this encounter Plan of Treatment Upcoming Encounters Date Type Department Care Team (Late st Contact Info) Description 05/24/2025 2:00 PM CDT Office Visit [facility] - LOW PRESSURE BOILER TENDER [address] [facility] [address] [place] [address] Aye Dao MD [address] [facility] [address] [place] [address] documented as of this encounter Visit Diagnoses Not on filedocumented in this encounter Care Teams Produce Team Member Relationship Specialty Start Date End Date Casa Encarnacion MD PCP - General 12/12/15 documented as of this encounter
--- OUTSIDE RECORDS SUMMARY | 2024-09-08 20:39 | XMS_ITS | Encounter Summary ---
Author Organization [facility] Health Address [address] [facility] [address] Care Team Providers Care Electric Repair Supervisor Name Role Phone Casa Encarnacion MD Primary Care Provider [phone] Reason for Visit * Reason Onset Date Comments Refill Request 02/18/2024 Encounter Details Date Type Department Care Team (Late st Contact Info) Description 02/18/2024 Telephone [facility] - OENOLOGIST [address] [facility] [address] [place] [address] Aye Dao MD [address] [facility] [address] [place] [address] Refill Request Social History Tobacco [...] Telephone Encounter - Marilin Alvarado RN - 02/18/2024 1:47 PM CDT Return call to patient She had hoped to be able to see Dr Leonard the week of March 08 as her daughter is off work that weekand could bring her Reviewed vacation week for Dr Leonard as well Will plan first available (likely May 2024) and will mail to patient's home address the reminder letter. She will call if she needs to reschedule that visit. * Telephone Encounter - Celena King - 02/18/2024 1:27 PM CDT PT called to schedule an appt for the first week in March, however the first available is not until May. PT would like to speak to a RN but would not go into detail when asked if there was a massage that could be relayed. She may also need a refill of her medication. C/B [phone] documented in this encounter Plan of Treatment Upcoming Encounters Date Type Department Care Team (Late st Contact Info) Description 05/24/2025 2:00 PM CDT Office Visit [facility] - OENOLOGIST [address] [facility] [address] [place] [address] Aye Dao MD [address] [facility] 400 [place] [address] documented as of this encounter Visit Diagnoses Not on filedocumented in this encounter Care Teams Electric Repair Supervisor Relationship Specialty Start Date End Date Casa Encarnacion MD PCP - General 12/12/15 documented as of this encounter
--- OUTSIDE RECORDS SUMMARY | 2024-09-08 20:39 | XMS_ITS | Encounter Summary ---
Author Organization [facility] Health Address [address] [place] [address] Care Team Providers Care County Manager Name Role Phone Casa Encarnacion MD Primary Care Provider [phone] Reason for Visit * Reason Comments Refill Request Encounter Details Date Type Department Care Team (Late st Contact Info) Description 04/01/2024 Refill [facility] - DECKHAND SPONGE BOAT [address] [facility] [address] [place] [address] Aye Dao MD [address] [facility] [address] [place] [address] Refill Request Social History Tobacco [...] Telephone Encounter - Marilin Alvarado RN - 04/01/2024 9:21 AM CDT Has 06/01/2024 appointment pending Gabapentin 300 mg capsule Two capsules by mouth 3 times a day (6 capsules a day.1800 mg daily) 540 for 90 day supply Last filled 12/15/2023 90 day supply sent today Patient last seen 08/28/2022 documented in this encounter Plan of Treatment Upcoming Encounters Date Type Department Care Team (Late st Contact Info) Description 05/24/2025 2:00 PM CDT Office Visit [facility] - DECKHAND SPONGE BOAT [address] [place] [address], [facility] [address] [place] [address] Aye Dao MD [address] [facility] [address] [place] [address] documented as of this encounter Visit Diagnoses Diagnosis Vulvodynia documented in this encounter Care Teams County Manager Relationship Specialty Start Date End Date Casa Encarnacion MD PCP - General 12/12/15 documented as of this encounter
--- OUTSIDE RECORDS SUMMARY | 2024-09-08 20:39 | XMS_ITS | Encounter Summary ---
Author Organization [facility] Address [address] [place] [address] Care Team Providers Care Goldbeater Name Role Phone Casa Encarnacion MD Primary Care Provider [phone] Reason for Visit * Reason Comments Refill Request Encounter Details Date Type Department Care Team (Late st Contact Info) Description 08/06/2022 Refill [facility] [address] [facility] [address] [place] [address] Aye Dao MD [address] [facility] [address] [place] [address] Refill Request Social History Tobacco [...] Telephone Encounter - Yanira Galvan RN - 08/06/2022 2:14 PM MISSILE INSPECTOR PREFLIGHT YAYO 06/2021, NOV 08/28/22. Last refill 06/10/22 good for 2 months. Allowed one refill of Nystatin capsule until seen. Reminder to patient with this refill of pending appointment. ILE INSPECTOR PREFLIGHT documented in this encounter Plan of Treatment Upcoming Encounters Date Type Department Care Team (Late st Contact Info) Description 05/24/2025 2:00 PM CDT Office Visit [facility] - FOREST MANAGEMENT PROFESSOR [address] [facility], [facility] [address] [place] [address] Aye Dao MD [address] [facility] [address] [place] [address] documented as of this encounter Visit Diagnoses Diagnosis History of candidiasis Personal history of other infectious and parasitic disease documented in this encounter Care Teams Goldbeater Relationship Specialty Start Date End Date Casa Encarnacion MD PCP - General 12/12/15 documented as of this encounter
--- OUTSIDE RECORDS SUMMARY | 2024-09-08 20:39 | XMS_ITS | Patient Health Summary ---
Author Organization [facility] Address [address] [facility] [place] [address] Care Team Providers Care Upper Cutter Name Role Phone Casa Encarnacion MD Primary Care Provider [phone] Note from [facility],non-owned Affiliates and Associated Physician Practices is amultiple site organization consisting of ambulatory clinics and hospital sitesin [place], [place], [place] and [place]. This disclosure is being madepursuant to the Care Everywhere program and may not contain all information available regarding this patient. Last updated 18.[facility] Allergies * Seasonal(Other) -Low Criticality Medications * Be aware that medications may not be up to date on this document. Alwaysverify current medications with the patient. * metoprolol tartrate (LOPRESSOR) 25 MG tablet(Started 08/20/2017) * alendronate (FOSAMAX) 70 MG tablet(Started 03/14/2017) * mirtazapine (REMERON) 30 MG tablet(Started 11/05/2016) Take 1 (one) tablet by mouth * chlordiazePOXIDE (LIBRIUM) 5 MG capsule(Started 01/03/2018) * aspirin (ASPIRIN) 81 MG chew tablet(Started 01/29/2020) Take 1 (one) tablet by mouth once daily * Bismuth Subsalicylate 525 MG/15ML Take 30 mL by mouth every 6 hours as needed * cetirizine (ZYRTEC) 10 MG tablet Take 1 (one) tablet by mouth as needed * vitamin D, cholecalciferol, 50 MCG (2000 UT) tablet Take 1 (one) tablet by mouth once daily * cranberry fruit 450 MG tablet Take 1 (one) tablet by mouth once daily * cyanocobalamin (VITAMIN B-12) 1000 MCG tablet Take 1 (one) tablet by mouth once daily * docusate sodium (COLACE) 100 MG capsule Take 1 (one) capsule by mouth 2 times daily as needed * lisinopril (PRINIVIL; ZESTRIL) 2.5 MG tablet(Started 01/28/2020) Take 1 (one) tablet by mouth once daily * loperamide (IMODIUM) 2 MG capsule Take 1 (one) capsule by mouth 4 times daily as needed * Multiple Vitamins-Minerals (SYSTANE ICAPS AREDS2) CAPS Take 2 tablets by mouth once daily * Psyllium 51.7 % PACK Take 1 packet by mouth once daily * acetaminophen (TYLENOL) 500 MG tablet Take 1 (one) tablet by mouth every 4 hours as needed * atorvastatin (LIPITOR) 20 MG tablet(Started 08/13/2020) Take 1 (one) tablet by mouth once daily * potassium chloride ER (Klor-Con) 10 MEQ tablet(Started 06/13/2022) Take 1 (one) tablet by mouth once daily * methenamine hippurate (Hiprex) 1 GM tablet(Started 04/26/2024) * methylPREDNISolone (Medrol Dosepak) 4 MG tablet(Started 03/05/2023) * nitrofurantoin monohyd macro crystals (Macrobid) 100 MG capsule(Started 01/26/2024) * sulfamethoxazole-trimethoprim (Bactrim DS; Septra DS) 800-160 MG tablet (Started 02/24/2024) * traMADol (Ultram) 50 MG tablet(Started 02/24/2024) * nystatin (Mycostatin) powder(Started 06/01/2024) Compounded 120,000 unit nystatin vaginal capsules. INSERT ONE CAPSULE IN THE VAGINA NIGHTLY DIRECTED. 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 Temperature 36.5 ??C (97.7 ??F) 06/01/2024 12:55 PM C DT Respiratory Rate - - Oxygen Saturation - - Inhaled Oxygen Concentration - - Weight 59.4 kg (131 lb) 06/01/2024 12:55 PM CDT Height 167.6 cm (5' 6 ) 06/01/2024 12:55 PM CDT Body Mass Index 21.14 06/01/2024 12:55 PM CDT Procedures * CULTURE YEAST(Performed 04/12/2021) Performed for History of candidiasis * LAB RESULTS ORDER(Performed 06/28/2019) * CULTURE URINE(Performed 05/25/2019) Performed for Acute cystitis without hematuria * SUSCEPTIBILITY YEAST(Performed 05/12/2019) * CULTURE YEAST WITH DIRECT FLUORESCENT MODESTA(Performed 05/12/2019) * CULTURE URINE(Performed 05/12/2019) Performed for Acute cystitis without hematuria * CULTURE URINE(Performed 02/19/2019) Performed for Acute cystitis without hematuria, Recurrent UTI (urinary tract infection) * CULTURE URINE(Performed 01/22/2019) Performed for Acute cystitis without hematuria * CULTURE URINE(Performed 01/04/2019) Performed for Abnormal urinalysis * CULTURE URINE(Performed 10/28/2018) Performed for Bladder pain * CULTURE URINE(Performed 10/16/2018) Performed for Acute cystitis without hematuria * CULTURE URINE COMPREHENSIVE(Performed 03/27/2017) * CULTURE YEAST WITH DIRECT FLUORESCENT MODESTA(Performed 11/05/2016) * WET PREP - POINT OF CARE (AMB) [facility](Performed 11/05/2016) * PH FLUID - POCT (AMB) [facility](Performed 11/05/2016) * FUNGUS MODESTA - POINT OF CARE (AMB) [facility](Performed 11/05/2016) * CULTURE YEAST WITH DIRECT FLUORESCENT MODESTA(Performed 05/07/2016) * WET PREP - POINT OF CARE (AMB) [facility](Performed 12/12/2015) * FUNGUS MODESTA - POINT OF CARE (AMB) [facility](Performed 12/12/2015) * PH FLUID - POCT (AMB) [facility](Performed 12/12/2015) * CULTURE YEAST WITH DIRECT FLUORESCENT MODESTA(Performed 12/12/2015) Results * CULTURE YEAST (04/12/2021 10:59 AM CDT) Culture Yeast with ID [facility] Comment: ??CULTURE, YEAST, W/IDENTIFICATION ?Micro Number: ?[id number] ??Test Status: ? Final ??Specimen Source: ?? Vulva ??Specimen Quality: ??Adequate ??Result: ?No fungal growth at 2 Weeks Test Performed at: [facility] ??[id number] ZORAIDA TYLER MD Microbiology ENTIRE VULVA / Unknown 04/12/2021 10:59 AM CDT 04/13/2021 3:14 AM CDT Elisa Fisher APRN-VP CLINICAL LAB - MICRO BIOLOGY ORDERABLES [address] [address] * LAB RESULTS ORDER (06/28/2019 12:31 PM CDT) Narrative 06/28/2019 12:31 PM CDT Ordered by an unspecified provider. Scanned Document LAB - THERAPEUTIC DR MCCRAY MONITORING ORDERABLES * (ABNORMAL) CULTURE URINE (05/25/2019 11:13 AM CDT) Only the most recent of7 resultswithin the time period is included. Culture (A) [facility] Comment: ??CULTURE, URINE, ROUTINE ?MICRO NUMBER: ?[id number] ??TEST STATUS: ? FINAL ??SPECIMEN SOURCE: ?? URINE ??SPECIMEN QUALITY: ??ADEQUATE ??RESULT: ?Greater than 100,000 CFU/mL of Klebsiella pneumoniae ?K.pneumoniae ?INT ?? LEO ?? AMOX/CLAVULANATE ? S ? <=2 ?? AMPICILLIN ? R ? 16 ?? AMP/SULBACTAM ?S ? <=2 ?? CEFAZOLIN ?NR ?<=4 2 ?? CEFEPIME ? S ? <=1 ?? CEFTRIAXONE ?S ? <=1 ?? CIPROFLOXACIN ?S ? <=0.25 ?? ERTAPENEM ?S ? <=0.5 ?? GENTAMICIN ? S ? <=1 ?? IMIPENEM ? S ? <=0.25 ?? LEVOFLOXACIN ? S ? <=0.12 ?? NITROFURANTOIN ? S ? 32 ?? PIP/TAZOBACTAM ? S ? <=4 ?? TOBRAMYCIN ? S ? <=1 ?? TRIMETHOPRIM/SULFA ? S ? <=20 S=Susceptible ??I=Intermediate ??R=Resistant ??* = Not Tested NR = Not Reported ??NN = See Therapy Comments THERAPY COMMENTS ?Note 1: ?For infections other than uncomplicated UTI ?caused by E. coli, K. pneumoniae or P. mirabilis: ?Cefazolin is resistant if LEO > or = 8 mcg/mL. ?(Distinguishing susceptible versus intermediate ?for isolates with LEO < or = 4 mcg/mL requires ?additional testing.) ?Note 2: ?For uncomplicated UTI caused by E. coli, ?K. pneumoniae or P. mirabilis: Cefazolin is ?susceptible if LEO <32 mcg/mL and predicts ?susceptible to the oral agents cefaclor, cefdinir, ?cefpodoxime, cefprozil, cefuroxime, cephalexin ?and loracarbef. Test Performed at: [facility] ??[id number] ZORAIDA TYLER MD Urine URINE SPECIMEN OBTAINED BY CLEAN CATCH PROCEDURE / Unknown 05/25/2019 11:13 AM CDT 05/25/2019 11:14 AM CDT Aye Dao MD LAB - MICROBIOLOGY ORDERABLES [address] [address] * SUSCEPTIBILITY YEAST (05/12/2019 2:12 PM CDT) Source WOUND [facility] Organism ID BAMBI ALBICANS [facility] Amphotericin B 0.250 mcg/mL [facility] Anidulafungin <=0.015 S mcg/mL [facility] Caspofungin 0.060 S mcg/mL [facility] Fluconazole 16 R mcg/mL [facility] 5-Flucytosine <=0.060 [facility] Itraconazole 0.250 mcg/mL [facility] Micafungin 0.015 S mcg/mL [facility] Posaconazole 0.500 mcg/mL [facility] Voriconazole 0.250 I mcg/mL [facility] Comment See below [facility] Comment: Drug concentrations are expressed in mcg/mL. S = Susceptible S-DD = Susceptible-Dose Dependent I = Intermediate R = Resistant Susceptible Dose Dependent (S-DD): susceptibility is dependent on achieving maximum blood levels. LEO interpretations are based on recently published CLSI guidelines. Only the LEO value is reported when CLSI guidelines are not available. This test was performed using a kit that has not been cleared or approved by the FDA. The analytical performance characteristics of this test have been determined by [facility]. This test not be used for diagnosis without confirmation by other medically established means. Test Performed at: [facility] [address] [place] [address] ??[id number] Tony PATTERSON 05/12/2019 2:12 PM CDT 05/12/2019 2:12 PM CDT Aye Doa MD LAB - MICROBIOLOGY ORDERABLES Performing Organization Address [facility]/State/ZIP Co de Phone Number [address] [address] * (ABNORMAL) CULTURE YEAST WITH DIRECT FLUORESCENT MODESTA (05/12/2019 2:12 PM CDT) Only the most recent of4 resultswithin the time period is included. Smear (A) [facility] Comment: ??CULTURE, YEAST, W/DIRECT FLUORESCENT MODESTA ?MICRO NUMBER: ?[id number] ??TEST STATUS: ? FINAL ??SPECIMEN SOURCE: ?? WOUND (SITE NOT SPECIFIED) ??SPECIMEN QUALITY: ??ADEQUATE ??SMEAR: ? No fungal elements seen. ??RESULT: ?Bambi albicans Test Performed at: [facility] ??[id number] ZORAIDA TYLER MD 05/12/2019 2:12 PM CDT 05/12/2019 2:12 PM CDT Aye Dao MD LAB - MICROBIOLOGY ORDERABLES [facility] [id number] [place] [address] * (ABNORMAL) CULTURE URINE COMPREHENSIVE (03/27/2017 1:53 PM CDT) Culture SEE NOTE(A) [facility] ([facility]) Comment: ??CULTURE, URINE, SPECIAL ?MICRO NUMBER: ?[id number] ??TEST STATUS: ? FINAL ??SPECIMEN SOURCE: ?? OTHER (SPECIFY) ??SPECIMEN QUALITY: ??ADEQUATE ??RESULT: ?Greater than 100,000 CFU/mL of Klebsiella pneumoniae ?K.pneumoniae ?INT ?? LEO ?? AMOX/CLAVULANATE ? S ? <=2 ?? AMPICILLIN ? R ? >=32 ?? AMP/SULBACTAM ?S ? 8 ?? CEFAZOLIN ?NR ?<=4 1 ?? CEFEPIME ? S ? <=1 ?? CEFTRIAXONE ?S ? <=1 ?? CIPROFLOXACIN ?S ? <=0.25 ?? ERTAPENEM ?S ? <=0.5 ?? GENTAMICIN ? S ? <=1 ?? IMIPENEM ? S ? <=0.25 ?? LEVOFLOXACIN ? S ? <=0.12 ?? NITROFURANTOIN ? I ? 64 ?? PIP/TAZOBACTAM ? S ? <=4 ?? TOBRAMYCIN ? S ? <=1 ?? TRIMETHOPRIM/SULFA ? S ? <=20 S=Susceptible ??I=Intermediate ??R=Resistant ??* = Not Tested NR = Not Reported ??NN = See Therapy Comments THERAPY COMMENTS ?Note 1: ?ORAL therapy: A cefazolin LEO of < 32 predicts ?susceptibility to the oral agents cefaclor, ?cefdinir, cefpodoxime, cefprozil, cefuroxime, ?cephalexin, and loracarbef when used for therapy ?of uncomplicated UTIs due to E. coli, ?K. pneumoniae, and P. mirabilis. ?PARENTERAL therapy: A cefazolin LEO of > 8 ?indicates resistance to parenteral cefazolin. ?An alternate test method must be performed to ?to confirm susceptibility to parenteral cefazolin. Test Performed at: [facility] ??[id number] ZORAIDA TYLER MD 03/27/2017 1:53 PM CDT 03/27/2017 11:00 PM CDT Aye Dao MD LAB - MICROBIOLOGY ORDERABLES [facility] ([facility]) * FLUID - POCT (AMB) [facility] (11/05/2016) Only the most recent of2 resultswithin the time period is included. pH Vaginal 4.[address] [facility] Vaginal swab (specimen) 11/05/2016 Aye Dao MD LAB - POINT OF CAR E ORDERABLES ON LICENSE OF [facility] * WET PREP - POINT OF CARE (AMB) U (11/05/2016) Only the most recent of2 resultswithin the time period is included. pH Wet Prep 4.5 [facility] Yeast Wet Prep neg [facility] Trichomonas Wet Prep neg ON LICENSE OF [facility] Bacteria Wet Prep neg ON LICENSE OF [facility] Whiff Test neg [facility] 11/05/2016 Aye Dao MD LAB - POINT OF CAR E ORDERABLES Performing Organization Address City/[facility]/ZIP Co de Phone Number ON LICENSE OF [facility] * FUNGUS MODESTA - POINT OF CARE (AMB) U (11/05/2016) Only the most recent of2 resultswithin the time period is included. MODESTA Prep negt [facility] Fluid specimen (specimen) 11/05/2016 Aye Dao MD LAB - POINT OF CAR E ORDERABLES ON LICENSE OF [facility] Care Teams Upper Cutter Relationship Specialty Start Date End Date Casa Encarnacion MD PCP - General 12/12/15
--- OUTSIDE RECORDS SUMMARY | 2024-09-08 20:39 | XMS_ITS | Encounter Summary ---
Author Organization [facility] Address [address] [place] [address] Care Team Providers Care Senior Contracts Administrator Name Role Phone Casa Encarnacion MD Primary Care Provider [phone] Reason for Visit * Reason Onset Date Comments Med Question 09/13/2022 Encounter Details Date Type Department Care Team (Late st Contact Info) Description 09/13/2022 Telephone [facility] [address] [place] [address] Aye Dao MD [address] [facility] [address] [place] [address] Med Question Social History Tobacco [...] Telephone Encounter - Tobias Mora RN - 09/13/2022 5:27 PM CST LM on a VM Re: Sorry I missed you again. Please call back next week. OLIDATOR * Telephone Encounter - Tobias Mora RN - 09/13/2022 3:16 PM CST LM on a re: Returning call. Sorry I missed you. Will try and call again before day is over. OLIDATOR * Telephone Encounter - StevieThania hemphill - 09/13/2022 2:17 PM CST Pt called. She is suffering today. Having pain and discomfort. Dr. Zhao instructed her to stop taking the Nystatin and it seemed to be helping. Pt kindly asked if a nurse would please call her to give her instructions on what to do. CB: [phone] Thank you so much OLIDATOR documented in this encounter Plan of Treatment Upcoming Encounters Date Type Department Care Team (Late st Contact Info) Description 05/24/2025 2:00 PM CDT Office Visit [facility] - INPATIENT SERVICES RN [address] [facility] [address] [place] [address] Aye Dao MD [address] [facility] [address] [place] [address] documented as of this encounter Visit Diagnoses Not on filedocumented in this encounter Care Teams Senior Contracts Administrator Relationship Specialty Start Date End Date Casa Encarnacion MD PCP - General 12/12/15 documented as of this encounter
--- OUTSIDE RECORDS SUMMARY | 2024-09-08 20:39 | XMS_ITS | Encounter Summary ---
Author Organization [facility] Address [address] [facility] [place] [address] Care Team Providers Care Forger Helper Name Role Phone Casa Encarnacion MD Primary Care Provider [phone] Reason for Visit * Reason Onset Date Comments Med Question 07/30/2023 Encounter Details Date Type Department Care Team (Late st Contact Info) Description 07/30/2023 Telephone [facility] - FIELD ADJUSTER [address] [facility] [address] [place] [address] Aye Dao MD [address] [facility] [address] [place] [address] Med Question Social History Tobacco [...] Telephone Encounter - Marilin Alvarado RN - 07/30/2023 9:27 AM SECURITY ALARM INSTALLER Notified patient's daughter the refill of the nystatin now sent to [facility] pharmacy RITY ALARM INSTALLER * Telephone Encounter - Aye Dao MD - 07/30/2023 9:25 AM SECURITY ALARM INSTALLER Refill sent into [facility] RITY ALARM INSTALLER * Telephone Encounter - Dipti Shah - 07/30/2023 9:08 AM CST PT is calling for a refill of NYSTATIN RITY ALARM INSTALLER documented in this encounter Plan of Treatment Upcoming Encounters Date Type Department Care Team (Late st Contact Info) Description 05/24/2025 2:00 PM CDT Office Visit [facility] - FIELD ADJUSTER [address] [facility] [address] [place] [address] Aye Dao MD [address] [facility] [address] [place] [address] documented as of this encounter Visit Diagnoses Diagnosis History of candidiasis Personal history of other infectious and parasitic disease documented in this encounter Care Teams Forger Helper Relationship Specialty Start Date End Date Casa Encarnacion MD PCP - General 12/12/15 documented as of this encounter
--- OUTSIDE RECORDS SUMMARY | 2024-09-08 20:39 | XMS_ITS | Encounter Summary ---
Author Organization [facility] Address [address] [place] [address] Care Team Providers Care Dental Assistant Instructor Name Role Phone Casa Encarnacion MD Primary Care Provider [phone] Reason for Visit * Reason Comments Vaginal Problem Encounter Details Date Type Department Care Team (Late st Contact Info) Description 08/28/2022 10:30 AM HEALTHCARE MARKETER Office Visit [facility] Gy[facility] Women's Health [address] [facility] [address] [place] [address] Aye Dao MD [address] [facility] [address] [place] [address] Vulvodynia (Primary Dx); History of [...] Sign Reading Time Taken Comments Blood Pressure 110/72 08/28/2022 10:33 AM HEALTHCARE MARKETER Pulse - - Temperature 35.9 ??C (96.7 ??F) 08/28/2022 10:[address] Respiratory Rate - - Oxygen Saturation - - Inhaled Oxygen Concentration - - Weight 58.2 kg (128 lb 6.4 oz) 08/28/2022 10:33 AM HEALTHCARE MARKETER Height 170 cm (5' 6.93 ) 08/28/2022 10:33 AM HEALTHCARE MARKETER Body Mass Index 20.15 08/28/2022 10:33 AM HEALTHCARE MARKETER documented in this encounter Patient Instructions * Patient Instructions* Aye Zhao MD - 08/28/2022 10:39 AM HEALTHCARE MARKETER When you get put on antibiotics use a nystatin capsule nightly. Increase the gabapentin to 2 capsules in the morning, 2 capsules at lunch, and 2 at bedtime. THCARE MARKETER documented in this encounter Progress Notes * Aye Zhao MD - 08/28/2022 10:30 AM CST [facility] Return Visit Date: 08/28/2022 Allergies: Allergies Allergen Reactions ??? Seasonal Other Sneezing VS: BP 110/72 Temp 96.7 ??F (35.9 ??C) Ht 1.7 m (5' 6.93 ) Wt 58.2 kg (128 lb 6.4 oz) Treatment(s): gabapentin, nystatin capsules Status: stable Subjective: Previous yeast negative, but culture in past showed favian albicans totally resistant to fluconazole. Patient with continued burning after antibiotics and was started on nystatin vaginalcapsules. Is currently on gabapentin 300 mg, one at breakfast and lunch and two at bedtime. Symptoms: (None=0; 10=Severe) Dyspareunia: Entry:not active Burning after intercourse:n/a Vaginal discharge: 0 Vulvar burnin Vulvar itchin Clitoral pain: 0 Vulvar pain: 0 Urinary symptoms: 0 Correct product use: VCG followed on all aspects: Good compliance Vulvar Examination: Normal anatomy. No pain with palpation. Tissues look good Cultures collected: none Biopsy: Impression/Plan: 1. Vulvodynia Will increase the gabapentin to 600 mg TID New prescription sent in 2. History of candidiasis- multiple negative cultures To use nystatin capsules vaginally with her frequent antibiotic use for UTIs. To use nightly while on antibiotics Refills sent in 3. F/U in 12 months Per patient request, talked with both daughters about her conditions and explained treatment plan. THCARE MARKETER documented in this encounter Plan of Treatment Upcoming Encounters Date Type Department Care Team (Late st Contact Info) Description 05/24/2025 2:00 PM CDT Office Visit [facility] - TEACHER ASST [address] [facility] [address] [place] [address] Aye Dao MD [address] [facility] [address] [place] [address] documented as of this encounter Visit Diagnoses Diagnosis Vulvodynia- Primary History of candidiasis Personal history of other infectious and parasitic disease documented in this encounter Care Teams Dental Assistant Instructor Relationship Specialty Start Date End Date Casa Encarnacion MD PCP - General 12/12/15 documented as of this encounter
--- OUTSIDE RECORDS SUMMARY | 2024-09-08 20:39 | XMS_ITS | Encounter Summary ---
Author Organization [facility] Address [address] [facility] [place] [address] Care Team Providers Care Internal Recruiter Name Role Phone Casa Encarnacion MD Primary Care Provider [phone] Encounter Details Date Type Department Care Team (Latest Contact Info) Description 06/01/2024 Travel Social History Tobacco Use Types Packs/Day [...] CDT Office Visit [facility] - RESEARCH CENTER DIRECTOR [address] [facility] [address] [place] [address] Aye Dao MD [address] [facility] [address] [place] [address] documented as of this encounter Visit Diagnoses Not on filedocumented in this encounter Care Teams Internal Recruiter Relationship Specialty Start Date End Date Casa Encarnacion MD PCP - General 12/12/15 documented as of this encounter
--- OUTSIDE RECORDS SUMMARY | 2024-09-08 20:39 | XMS_ITS | Encounter Summary ---
Author Organization [facility] Health Address [address] [place] [address] Care Team Providers Care Client Leader Name Role Phone Casa Encarnacion MD Primary Care Provider [phone] Reason for Visit * Reason Comments Vaginal Problem Encounter Details Date Type Department Care Team (Late st Contact Info) Description 07/03/2021 10:30 AM CDT Office Visit [facility] Obstetrics Gynecology and Women's Health [address] [facility] [address] [place] [address] Aye Dao MD [address] [facility] [address] [place] [address] Vulvodynia (Primary Dx); History of [...] Sign Reading Time Taken Comments Blood Pressure 142/90 07/03/2021 10:37 AM CDT Pulse - - Temperature - - Respiratory Rate - - Oxygen Saturation - - Inhaled Oxygen Concentration - - Weight 67.9 kg (149 lb 9.6 oz) 07/03/2021 10:37 AM CDT Height 167.6 cm (5' 6 ) 07/03/2021 10:37 AM CDT Body Mass Index 24.15 07/03/2021 10:37 AM CDT documented in this encounter Patient Instructions * Patient Instructions* Aye Zhao MD - 07/03/2021 10:42 AM CDT Use the nystatin capsules every Friday and . If you need to you can use it more often if you get symptoms. documented in this encounter Progress Notes * Aye Zhao MD - 07/03/2021 10:30 AM CDT [facility] Return Visit Date: 07/03/2021 Allergies: Allergies Allergen Reactions ??? Seasonal Other Sneezing VS: BP 142/90 Ht 5' 6 Wt 149 lb 9.6 oz BMI 24.15 kg/m2 Treatment(s): gabapentin, nystatin capsules Status: stable Subjective: Was treated for UTI in May, given Cipro and fluconazole. Last yeast culture in April negative for yeast. Previous yeast totally resistant to fluconazole. Patient with continued burning after antibiotics and was started on nystatin vaginal capsules. Is currently on gabapentin 300 mg. One at breakfast and lunch and two at bedtime. Thinks that the nystatin is really helping. Symptoms: (None=0; 10=Severe) Dyspareunia: Entry:not active Burning after intercourse:n/a Vaginal discharge: 0 Vulvar burnin Vulvar itchin Clitoral pain: 0 Vulvar pain: 0 Urinary symptoms: 0 Correct product use: VCG followed on all aspects: Good compliance Vulvar Examination: Normal anatomy. No pain with palpation. Tissues look good Cultures collected: none Biopsy: Impression/Plan: 1. Vulvodynia Stable on the gabapentin Refills sent in 2. History of candidiasis Continue with the nystatin capsules vaginally twice weekly Refills sent in 3. F/U in 12 months Time of visit: 20 minutes. Significant portion (>50%) of time was spent face to face in counseling the patient about vulvodynia and discussing the treatment plan as outlined in the instructions. All questions were answered to her satisfaction. documented in this encounter Plan of Treatment Upcoming Encounters Date Type Department Care Team (Late st Contact Info) Description 05/24/2025 2:00 PM CDT Office Visit [facility] - CLIENT SPECIALIST [address], [facility] [address] [place] [address] Aye Dao MD [address] [facility] [address] [place] [address] documented as of this encounter Visit Diagnoses Diagnosis Vulvodynia- Primary History of candidiasis Personal history of other infectious and parasitic disease documented in this encounter Care Teams Client Leader Relationship Specialty Start Date End Date Casa Encarnacion MD PCP - General 12/12/15 documented as of this encounter
--- OUTSIDE RECORDS SUMMARY | 2024-09-08 20:39 | XMS_ITS | Encounter Summary ---
Author Organization [facility] Health Address [address] [place] [address] Care Team Providers Care Station Engineer Chief Name Role Phone Casa Encarnacion MD Primary Care Provider [phone] Reason for Visit * Reason Comments Refill Request Encounter Details Date Type Department Care Team (Late st Contact Info) Description 05/27/2023 Refill [facility] - KNOCKDOWN WORKER [address] [facility] [address] [place] [address] Aye Dao MD [address] [facility] [address] [place] [address] Refill Request Social History Tobacco [...] Telephone Encounter - Iris Lundy LPN - 05/27/2023 9:56 AM CDT Last visit Next visit Last refill gabapentin 300 08/29 for 90 day supply with 3 additional To soon for refill documented in this encounter Plan of Treatment Upcoming Encounters Date Type Department Care Team (Late st Contact Info) Description 05/24/2025 2:00 PM CDT Office Visit [facility] Group - KNOCKDOWN WORKER [address], [facility] [address] [place] [address] Aye Dao MD [address] [facility] [address] [place] [address] documented as of this encounter Visit Diagnoses Diagnosis Vulvodynia documented in this encounter Care Teams Station Engineer Chief Relationship Specialty Start Date End Date Casa Encarnacion MD PCP - General 12/12/15 documented as of this encounter
--- OUTSIDE RECORDS SUMMARY | 2024-09-08 20:39 | XMS_ITS | Encounter Summary ---
Author Organization [facility] Health Address [address] [place] [address] Care Team Providers Care Grey Washer Name Role Phone Casa Encarnacion MD Primary Care Provider [phone] Reason for Visit * Reason Onset Date Comments Med Question 12/27/2021 Encounter Details Date Type Department Care Team (Late st Contact Info) Description 12/27/2021 Telephone [facility] Obstetrics Gynecology and Women's Health [address] [place] [address] Aye Dao MD [address] [facility] [address] [place] [address] Med Question Social History Tobacco [...] Telephone Encounter - Tobias Mora RN - 12/28/2021 3:58 PM CDT Just diagnosed w/ a UTI a week ago and put on abx. Had already [place] her itching was starting to come back, but now a little worse. Denies: d/c, irritation. C/o a little burning. Advised : If she has issues - she can use 1 vaginally every night for 5 nights. About 3 wks ago, felt itching symptoms coming back so used every other night for 1.5 wks. Then wentback to 2x / week. Will try the 5 nights in a row, then will go back to 2x/ week. Will call if anything else changes. Has f/u appt 07/09. * Telephone Encounter - Maddy Wild - 12/28/2021 9:57 AM CDT Pt is returning the call to nurse * Telephone Encounter - Tobias Mora RN - 12/27/2021 2:26 PM CDT LM on a re: returning call from earlier. Pls cb office. * Telephone Encounter - Celena Joel - 12/27/2021 9:02 AM CDT Pt called in wanting to speak to someone regarding questions she has about her nystatin script. Pt callback# [phone] documented in this encounter Plan of Treatment Upcoming Encounters Date Type Department Care Team (Late st Contact Info) Description 05/24/2025 2:00 PM CDT Office Visit [facility] - CALL CENTER REPRESENTATIVE [address] [facility] [address] [place] [address] Aye Dao MD [address] [facility] [address] [place] [address] documented as of this encounter Visit Diagnoses Not on filedocumented in this encounter Care Teams Grey Washer Relationship Specialty Start Date End Date Casa Encarnacion MD PCP - General 12/12/15 documented as of this encounter
--- OUTSIDE RECORDS SUMMARY | 2024-09-08 20:40 | XMS_ITS | Encounter Summary ---
Author Organization [facility] Health Address [address] [place] [address] Care Team Providers Care Hospice Superintendent Name Role Phone Casa Encarnacion MD Primary Care Provider [phone] Reason for Visit * Reason Onset Date Comments UTI 09/05/2020 Encounter Details Date Type Department Care Team (Late st Contact Info) Description 09/05/2020 Telephone [facility] Obstetrics Gynecology and Women's Health [address] [place] [address] Aye Dao MD [address] [facility] [address] [place] [address] UTI Social History Tobacco Use Types Packs/Day Years [...] Telephone Encounter - Iris Lundy LPN - 09/05/2020 10:18 AM TOLL GATE TENDER The patient can not come in tomorrow. [place] away, the roads are suppose to be bad tomorrow and no one to bring her in. I discussed with Dr. Zhao Will send in diflucan every other day for 3 doses. If not better will have to be seen. 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 Could she come in tomorrow for a quick yeast culture? GATE TENDER * Telephone Encounter - Iris Lundy LPN - 09/05/2020 9:48 AM TOLL GATE TENDER I called the patient - she is itching again . Had another UTI was given antibiotics finished them acouple weeks ago. Wonders if could have the diflucan again ? I will check and let her know - I reviewed her allergies and local pharmacy I asked if she gets UTI's a lot - she said yes, was sent to a specialists and told it ws because she was old. I will get this information to Dr. Zhao and let her know once I hear back. All are in agreement GATE TENDER * Telephone Encounter - Ese Romero - 09/05/2020 9:02 AM CST Patient called and noted that she is having some burning and itching. Can you call her to go over that? She would like to speak with the nurses. Call back # [phone] GATE TENDER documented in this encounter Plan of Treatment Upcoming Encounters Date Type Department Care Team (Late st Contact Info) Description 05/24/2025 2:00 PM CDT Office Visit [facility] - DEVELOPMENT MANAGER [address] [place] [address] Aye Dao MD [address] [address] documented as of this encounter Visit Diagnoses Diagnosis Yeast infection of the vagina Candidiasis of vulva and vagina documented in this encounter Care Teams Hospice Superintendent Relationship Specialty Start Date End Date Casa Encarnacion MD PCP - General 12/12/15 documented as of this encounter
--- OUTSIDE RECORDS SUMMARY | 2024-09-08 20:40 | XMS_ITS | Encounter Summary ---
Author Organization [facility] Health Address [address] [facility] [place] [address] Care Team Providers Care Extruder Operator Vertical Name Role Phone Casa Encarnacion MD Primary Care Provider [phone] Reason for Visit * Reason Onset Date Comments Patient Requested Call 07/05/2019 Encounter Details Date Type Department Care Team (Late st Contact Info) Description 07/03/2019 Refill [facility]s Gynecology and Women's Health [address] [place], [place] [id number] Aye Dao MD [address] [facility] 400 [place] [address] Patient Requested Call Social History [...] encounter Miscellaneous Notes * Telephone Encounter - Aye Zhao MD - 07/07/2019 10:07 AM CDT Talked with patient. Is no longer burning. Had cysto yesterday in OR and went well. Informed her I do not want to refill her Diflucan. Needs to let me know if she thinks she has yeast. But if she starts burning will need to call Urologist for urine culture. * Telephone Encounter - Bert Ortiz - 07/05/2019 11:55 AM CDT Pt called in requesting a calbac from the provider. Calback#[phone] documented in this encounter Plan of Treatment Upcoming Encounters Date Type Department Care Team (Late st Contact Info) Description 05/24/2025 2:00 PM CDT Office Visit [facility] - AIR CREW OFFICER [address] [facility] [address] [place] [address] Aye Dao MD [address] [facility] [address] [place] [address] documented as of this encounter Visit Diagnoses Diagnosis Yeast infection of the vagina Candidiasis of vulva and vagina documented in this encounter Care Teams Extruder Operator Vertical Relationship Specialty Start Date End Date Casa Encarnacion MD PCP - General 12/12/15 documented as of this encounter
--- OUTSIDE RECORDS SUMMARY | 2024-09-08 20:40 | XMS_ITS | Encounter Summary ---
Author Organization [facility] Health Address [address] [facility] [place] [address] Care Team Providers Care Radiation Control Worker Name Role Phone Casa Encarnacion MD Primary Care Provider [phone] Reason for Visit * Reason Onset Date Comments Vaginal Problem 06/09/2020 Encounter Details Date Type Department Care Team (Late st Contact Info) Description 06/09/2020 Telephone [facility] Gynecology and Women's Health [address] [place] [address] Aye Dao MD [address] [address] Vaginal Problem Social History Tobacco Use [...] Telephone Encounter - Tobias Mora RN - 06/09/2020 6:22 PM CDT C/o burning in the vaginal vulvar - mostly on the outside. [place] off and on - shortening helps. Using 2-3x/ day. No burning w/ urination. She will increase daily use of shortening over the weekend. Enc'd her to try and not wear underwearat night as well. She agrees to give this a try. If no better, will call back on next week. * Telephone Encounter - Beth Rojas - 06/09/2020 2:01 PM CDT Pt calling to report vaginal burning. Pt would like Diflucan sent to pharmacy. Pt's CB #: [phone] documented in this encounter Plan of Treatment Upcoming Encounters Date Type Department Care Team (Late st Contact Info) Description 05/24/2025 2:00 PM CDT Office Visit [facility] - SOLUTION COORDINATOR [address], [facility] 200 [place] [address] Aye Dao MD [address] [facility] [address] [place] [address] documented as of this encounter Visit Diagnoses Not on filedocumented in this encounter Care Teams Radiation Control Worker Relationship Specialty Start Date End Date Casa Encarnacion MD PCP - General 12/12/15 documented as of this encounter
--- OUTSIDE RECORDS SUMMARY | 2024-09-08 20:40 | XMS_ITS | Encounter Summary ---
Author Organization [facility] Health Address [address] [facility] [address] Care Team Providers Care Director Chemistry Name Role Phone Casa Encarnacion MD Primary Care Provider [phone] Reason for Visit * Reason Onset Date Comments Question 01/06/2019 Encounter Details Date Type Department Care Team (Late st Contact Info) Description 01/06/2019 Telephone [facility]cology and Women's Health [address] [place] [address] Aye Dao MD [address] [address] Question Social History Tobacco Use Types [...] Telephone Encounter - Marilin Alvarado RN - 01/06/2019 12:51 PM CDT Return call to patient Notified her the results of the urine culture not yet available culture in progress Reassured patient this office will contact her when final results are available agreeable * Telephone Encounter - Katty Murphy - 01/06/2019 8:30 AM CDT Pt called requesting to know if there was any medication ordered for her UTI. Callback#[phone] documented in this encounter Plan of Treatment Upcoming Encounters Date Type Department Care Team (Late st Contact Info) Description 05/24/2025 2:00 PM CDT Office Visit [facility] - COLLECTION TECHNICIAN [address], [facility] 200 [place] [address] Aye Dao MD [address] [facility] [address] [place] [address] documented as of this encounter Visit Diagnoses Not on filedocumented in this encounter Care Teams Director Chemistry Relationship Specialty Start Date End Date Casa Encarnacion MD PCP - General 12/12/15 documented as of this encounter
--- OUTSIDE RECORDS SUMMARY | 2024-09-08 20:40 | XMS_ITS | Encounter Summary ---
Author Organization [facility] Health Address [address] [facility] [place] [address] Care Team Providers Care Dress Designer Name Role Phone Casa Encarnacion MD Primary Care Provider [phone] Reason for Visit * Reason Onset Date Comments Medication Prior Auth Request 05/28/2019 Encounter Details Date Type Department Care Team (Late st Contact Info) Description 05/28/2019 Telephone [facility] Gynecology and Women's Health [address] [place] [address] Aye Dao MD [address] [facility] [address] [place] [address] Medication Prior Auth Request Social History Tobacco Use Types Packs/Day [...] Telephone Encounter - Tobias Mora RN - 06/02/2019 4:50 PM CDT Medication approved. [facility] made aware. Ms. Stroud made aware. She wanted to take Diflucan. I told her again NOT to take the Diflucan bc her current infection is resistant to it. Only the itraconazole will kill it. She verbalized understanding and agreed to plan. Finally, she doesn't like the current Urologist, Dr. Alba bc he's only in his office 1 day/ week that's close to her house. Also, she feels the ladies in his office aren't as responsive to her c/o UTI. Since she's only seen him 1 time, I asked her to give him one more chance. She keeps getting too many infections. Maybe go see him one more time and see what happens. She agreed to plan. * Telephone Encounter - Tobias Mora RN - 06/02/2019 4:33 PM CDT VIKY armijo w/ [facility]. [phone]. Ref # [id number] Talked to Lesa. Asked for expedited decision. * Telephone Encounter - Tobias Mora RN - 05/28/2019 12:19 PM CDT [facility] called to clarify Diflucan rx. Advised : please don't fill the Diflucan. Provider is ordering Itraconazole instead. Reviewed directions. Asked to fax a PA request if one generates to [phone]. * Telephone Encounter - Aye Zhao MD - 05/28/2019 11:58 AM CDT The yeast culture sensitivities just returned. The favian albicans she has is totally resistant tothe Diflucan. I have sent in a prescription for itraconazole 100 mg capsules as this is the only other oral medication it is sensitive to. Take two by mouth twice daily for a week. This will need a prior authorization. documented in this encounter Plan of Treatment Upcoming Encounters Date Type Department Care Team (Late st Contact Info) Description 05/24/2025 2:00 PM CDT Office Visit [facility] Group - MENDER KNIT GOODS [address], [facility] 200 [place] [address] Aye Dao MD [address] [facility] [address] [place] [address] documented as of this encounter Visit Diagnoses Diagnosis Yeast infection involving the vagina and surrounding area- Primary Candidiasis of vulva and vagina documented in this encounter Care Teams Dress Designer Relationship Specialty Start Date End Date Casa Encarnacion MD PCP - General 12/12/15 documented as of this encounter
--- OUTSIDE RECORDS SUMMARY | 2024-09-08 20:40 | XMS_ITS | Encounter Summary ---
Author Organization [facility] Health Address [address] [facility] [address] Care Team Providers Care Oceanic Sciences Professor Name Role Phone Casa Encarnacion MD Primary Care Provider [phone] Encounter Details Date Type Department Care Team (Late st Contact Info) Description 04/12/2021 10:50 AM CDT Office Visit [facility] Obstetrics Gynecology and Women's Health [address] [place], [place] [id number] Elisa Fisher, BRICKLAYER-FIELD IDENTIFICATION SPECIALIST [address] [address] Vulvodynia (Primary Dx); History of candidiasis; History of recurrent UTIs Social History Tobacco Use Types Packs/Day Years [...] Sign Reading Time Taken Comments Blood Pressure 128/80 04/12/2021 11:06 AM CDT Pulse - - Temperature - - Respiratory Rate - - Oxygen Saturation - - Inhaled Oxygen Concentration - - Weight 63.5 kg (140 lb) 04/12/2021 11:06 AM CDT Height 160 cm (5' 3 ) 04/12/2021 11:06 AM CDT Body Mass Index 24.8 04/12/2021 11:06 AM CDT documented in this encounter Patient Instructions * Patient Instructions* Elisa Fisher APRN-CNP - 04/12/2021 11:31 AM CDT Use a tiny bit of the estrogen cream to the urine opening twice a week Keep up the crisco Continue the gabapentin documented in this encounter Progress Notes * Elisa Fisher APRN-CNP - 04/12/2021 10:50 AM CDT Images from the original note were not included. [facility] Return Visit Date: 04/12/2021 Allergies: Allergies Allergen Reactions ??? Seasonal Other Sneezing VS: BP 128/80 Ht 5' 3 (1.6 m) Wt 140 lb (63.5 kg) BMI 24.8 kg/m2 Treatment(s): gabapentin Status: stable Subjective: here today for a yeast cxl. had pos cxl for c albicans. Resistant to diflucan. Last ov Dr Pacheco in . Still on the gabapentin 300 mg in the morning & lunch; takes 600 mg at bedtime. Had a UTI & took antbx, Finds the diflucan helpful when takes it.. Has a lot of UTI's . Was worse on Friday; feels better today Asking to have more diflucan to take as needs . Symptoms: (None=0; 10=Severe) Dyspareunia: Entry:not active Burning after intercourse:n/a Vaginal discharge: 0 Vulvar burnin now was worse on Friday Vulvar itchin Clitoral pain: 0 Vulvar pain: 0 Urinary symptoms: 0 Correct product use: VCG followed on all aspects: Good compliance Vulvar Examination: Cultures collected: Yeast Biopsy: Impression/Plan: 1. Vulvodynia: More sx today Continue on the gabapentin as above. Denies need for refills today 2. Hx of candidiasis: Check yeast cxl Plan to offer suppressive tx if cxl positive anxious to have an anti fungal med at home for PRN use F/U as [facility] 07-03-2021 Dr Pacheco Pt would prefer to resche visit for one year form now if possible. 3. Hx of UTI's Add the estrogen creame to ureathal os twice a week. Patient was counseled face to face about candidiasis, vulvodynia, UTI's and discussing the treatment plan as outlined in instruction. All questions were answered to her satisfaction. documented in this encounter Plan of Treatment Upcoming Encounters Date Type Department Care Team (Late st Contact Info) Description 05/24/2025 2:00 PM CDT Office Visit [facility] - DISTANCE LEARNING COORDINATOR [address] [facility] [address] [place] [address] Aye Dao MD [address] [facility] 400 [place] [address] documented as of this encounter Procedures Procedure Name Priority Date/Time Associated Diagnosis Comments CULTURE YEAST Routine 04/12/2021 10:59 AM CDT History of candidiasis documented in this encounter Results * CULTURE YEAST (04/12/2021 10:59 AM CDT) Culture Yeast with ID [facility] Comment: ??CULTURE, YEAST, W/IDENTIFICATION ?Micro Number: ?[id number] ??Test Status: ? Final ??Specimen Source: ?? Vulva ??Specimen Quality: ??Adequate ??Result: ?No fungal growth at 2 Weeks Test Performed at: [facility] ??[id number] ZORAIDA TYLER MD Microbiology ENTIRE VULVA / Unknown 04/12/2021 10:59 AM CDT 04/13/2021 3:14 AM CDT Elisa E Hoffstetter BRICKLAYER-FIELD IDENTIFICATION SPECIALIST LAB - MICRO BIOLOGY ORDERABLES [facility] [address] [place] [address] documented in this encounter Visit Diagnoses Diagnosis Vulvodynia- Primary History of candidiasis Personal history of other infectious and parasitic disease History of recurrent UTIs Personal history of urinary (tract) infection documented in this encounter Care Teams Oceanic Sciences Professor Relationship Specialty Start Date End Date Casa Encarnacion MD PCP - General 12/12/15 documented as of this encounter
--- OUTSIDE RECORDS SUMMARY | 2024-09-08 20:40 | XMS_ITS | Encounter Summary ---
Author Organization [facility] Health Address [address] [place] [address] Care Team Providers Care Band Presser Name Role Phone Casa Encarnacion MD Primary Care Provider [phone] Reason for Visit * Reason Onset Date Comments Med Question 03/25/2019 Encounter Details Date Type Department Care Team (Late st Contact Info) Description 03/25/2019 Telephone [facility] [address] [place] [address] Aye Dao MD [address] [address] Med Question Social History Tobacco Use [...] Telephone Encounter - Marilin Alvarado RN - 03/25/2019 3:00 PM CDT Diflucan 150 #2 sent to [facility] Patient notified She is agreeable And grateful * Telephone Encounter - Marilin Alvarado RN - 03/25/2019 12:39 PM CDT Describes a little itching Not too much burning Some discharge Using sitz baths Requests refill of the diflucan Last fill of 200 mg was 02/19 Cautioned too much diflucan hard on the liver Patient replies maybe I don't need all 3 doses Aware we will check with covering partner and be back in touch with patient * Telephone Encounter - Ese Romero - 03/25/2019 10:44 AM CDT Patient called and needs to talk to someone about the Difulcan. She wouldn't give specifics but noted that she had questions. Call back # [phone] documented in this encounter Plan of Treatment Upcoming Encounters Date Type Department Care Team (Late st Contact Info) Description 05/24/2025 2:00 PM CDT Office Visit [facility] - MICROARRAY OPERATIONS VICE PRESIDENT [address], [facility] [address] [place] [address] Aye Dao MD [address] [place] [address] documented as of this encounter Visit Diagnoses Not on filedocumented in this encounter Care Teams Band Presser Relationship Specialty Start Date End Date Casa Encarnacion MD PCP - General 12/12/15 documented as of this encounter
--- OUTSIDE RECORDS SUMMARY | 2024-09-08 20:40 | XMS_ITS | Encounter Summary ---
Author Organization [facility] Address [address] [place] [address] Care Team Providers Care Student Counsellor Name Role Phone Casa Encarnacion MD Primary Care Provider [phone] Encounter Details Date Type Department Care Team (Late Contact Info) Description 11/29/2020 Orders Only [facility] Medical [facility] - COVID Vax [address] [place] [address] Humphrey Casitllo MD [address] [facility] [address] [place] [address] Need for vaccination Social History Tobacco Use Types Packs/Day Years [...] Office Visit [facility] - SALES FLOOR TEAM LEADER [address], [facility] 200 [place] [address] Aye Dao MD [address] [place] [address] documented as of this encounter Visit Diagnoses Diagnosis Need for vaccination Need for prophylactic vaccination and inoculation against unspecified single disease documented in this encounter Care Teams Student Counsellor Relationship Specialty Start Date End Date Casa Encarnacion MD PCP - General 12/12/15 documented as of this encounter
--- OUTSIDE RECORDS SUMMARY | 2024-09-08 20:40 | XMS_ITS | Encounter Summary ---
Author Organization [facility] Health Address [address] [facility] [place] [address] Care Team Providers Care Marine Railway Operator Name Role Phone Casa Encarnacion MD Primary Care Provider [phone] Reason for Visit * Reason Onset Date Comments Nurse Only 05/10/2021 Encounter Details Date Type Department Care Team (Late st Contact Info) Description 05/10/2021 Telephone [facility] [address] [facility] [address] [place], [place] [id number] Aye Dao MD [address] [facility] [address] [place] [address] Nurse Only Social History Tobacco [...] Telephone Encounter - Marilin Alvarado RN - 05/10/2021 12:38 PM CDT Spoke to patient Answered patient's question 4 steps when she starts with the irritation and itchin. Frozen vegetable packs 2. Rinse with cool water 3. Crisco Solid Shortening If and only if things are not improving or actually worsening irritation She is to go to the one nystatin vaginal insert nightly for 5 nights in a row If the irritation starts again She starts again back at step 1 Reminded her no medication will be the instant fix to this chronic issue Verbalizes understanding but is hesitant Already fearful what if these suppositories do not help She continues the gabapentin Reassured her this absolutely should help She will call with needs * Telephone Encounter - Kesha Mora - 05/10/2021 10:20 AM CDT Pt returning missed call from Marilin Henriquez. CB# [phone] documented in this encounter Plan of Treatment Upcoming Encounters Date Type Department Care Team (Late st Contact Info) Description 05/24/2025 2:00 PM CDT Office Visit [facility] - NURSE CHARGE RN [address], [facility] [address] [place] [address] Aye Dao MD [address] [facility] [address] [place] [address] documented as of this encounter Visit Diagnoses Not on filedocumented in this encounter Care Teams Marine Railway Operator Relationship Specialty Start Date End Date Casa Encarnacion MD PCP - General 12/12/15 documented as of this encounter
--- OUTSIDE RECORDS SUMMARY | 2024-09-08 20:40 | XMS_ITS | Encounter Summary ---
Author Organization [facility] Health Address [address] [facility] [place] [address] Care Team Providers Care Escalator Attendant Name Role Phone Casa Encarnacion MD Primary Care Provider [phone] Reason for Visit * Reason Onset Date Comments Refill Request 07/13/2020 Encounter Details Date Type Department Care Team (Late st Contact Info) Description 07/13/2020 Telephone [facility] [address] [place] [address] Aye Dao MD 10[address] [facility] [address] [place] [address] Refill Request Social History Tobacco [...] Telephone Encounter - Iris Lundy LPN - 07/13/2020 10:01 AM FOSTER CARE SOCIAL WORKER I spoke with the patient. Her itching continues , has tried sitz baths and increasing the use of her crisco . Not helping. Has itching on the outside , a little bit of ? Yellowish discharge and no odor. Would like to get a refill of diflucan. I will send in 1 refill - instructed patient to hold her atorvastatin until one day after completing the therapy. If not better by Friday will call me and back and need to be seen All are in agreement I did review her allergies and local pharmacy ER CARE SOCIAL WORKER * Telephone Encounter - Ese Romero - 07/13/2020 9:15 AM CST Patient called and noted that she needs some Diflucan for a yeast infection. [facility] [address] [facility] [address] Patient asked if you could call her either way so she knows what is going on. Call back # [phone] ER CARE SOCIAL WORKER documented in this encounter Plan of Treatment Upcoming Encounters Date Type Department Care Team (Late st Contact Info) Description 05/24/2025 2:00 PM CDT Office Visit [facility] - CONTROLLER REPAIRER AND TESTER [address], [facility] 200 [place] [address] Aye Dao MD [address] [facility] [address] [place] [address] documented as of this encounter Visit Diagnoses Diagnosis Yeast infection of the vagina Candidiasis of vulva and vagina documented in this encounter Care Teams Escalator Attendant Relationship Specialty Start Date End Date Casa Encarnacion MD PCP - General 12/12/15 documented as of this encounter
--- OUTSIDE RECORDS SUMMARY | 2024-09-08 20:40 | XMS_ITS | Encounter Summary ---
Author Organization [facility] Address [address] [place] [address] Care Team Providers Care Long Chain Quiller Tender Name Role Phone Casa Encarnacion MD Primary Care Provider [phone] Reason for Visit * Reason Onset Date Comments Referral 01/21/2019 Record Request 01/21/2019 Encounter Details Date Type Department Care Team (Late st Contact Info) Description 01/21/2019 Telephone [facility] [address] [place] [address] Aye Dao MD [address] [address] Referral; Record Request Social History Tobacco Use Types Packs/Day [...] Telephone Encounter - Marilin Alvarado RN - 01/21/2019 11:57 AM CDT Return call to patient She reports now she will see this urologist (Dr Alba)on February 16 (the first urologist she provided info on was not available for several months) Plans to see Dr Marimar Alba [facility] Aware we will get her records sent as requested Also, she would like order for [facility] to get test of cure Feeling good overall but wants to know UTI cleared Currently on diflucan per patient Order placed in [facility] (and paper fax'd to [facility] given the unreliable interface) Confirmed Dr Alba fax # Urine culture results from 03/27/17 - 01/04/19 sent as well as office note 10/28/2018 * Telephone Encounter - Elisa Anne - 01/21/2019 10:58 AM CDT Pt states Dr Leonard wanted her to see a urologist. She has decided on Alex Hairston MD in [place]. The nurses at his office are asking for records to be sent. Pt call back # [phone] Alex Hairston MD documented in this encounter Plan of Treatment Upcoming Encounters Date Type Department Care Team (Late st Contact Info) Description 05/24/2025 2:00 PM CDT Office Visit [facility] - RESTORATIVE REHAB AIDE [address], [facility] 200 [place] [address] Aye Dao MD [address] [facility] [address] [place] [address] documented as of this encounter Procedures Procedure Name Priority Date/Time Associated Diagnosis Comments CULTURE URINE Routine 01/22/2019 9:19 AM CDT Acute cystitis without hematuria documented in this encounter Results * CULTURE URINE (01/22/2019 9:19 AM CDT) Culture [facility] Comment: ??CULTURE, URINE, ROUTINE ?MICRO NUMBER: ?[id number] ??TEST STATUS: ? FINAL ??SPECIMEN SOURCE: ?? URINE ??SPECIMEN QUALITY: ??ADEQUATE ??RESULT: ?No Growth Test Performed at: [facility] ??[id number] ZORAIDA TYLER MD Urine URINE SPECIMEN OBTAINED BY CLEAN CATCH PROCEDURE / Unknown 01/22/2019 9:19 AM CDT 01/22/2019 9:20 AM CDT Aye Dao MD LAB - MICROBIOLOGY ORDERABLES [address] [address] documented in this encounter Visit Diagnoses Diagnosis Acute cystitis without hematuria- Primary Acute cystitis documented in this encounter Care Teams Long Chain Quiller Tender Relationship Specialty Start Date End Date Casa Encarnacion MD PCP - General 12/12/15 documented as of this encounter
--- OUTSIDE RECORDS SUMMARY | 2024-09-08 20:40 | XMS_ITS | Encounter Summary ---
Author Organization [facility] Health Address [address] [facility] [place] [address] Care Team Providers Care Automation Developer Name Role Phone Casa Encanracion MD Primary Care Provider [phone] Reason for Visit * Reason Onset Date Comments MEDICATION REFILL 10/16/2020 Encounter Details Date Type Department Care Team (Late st Contact Info) Description 10/16/2020 Telephone [facility] [address] [place] [address] Aye Dao MD 10[address] [facility] 400 [place] [address] MEDICATION REFILL Social History Tobacco Use Types Packs/Day Years [...] Telephone Encounter - Iris Lundy LPN - 10/16/2020 1:44 PM MINING ENGINEER I called the patient - gave her Dr. Zhao's message. She does have a local ELECTRICAL INSPECTOR = she will try to get in and get the culture done. She will have them send us the results All are in agreement NG ENGINEER * Telephone Encounter - Aye Zhao MD - 10/16/2020 1:03 PM CST She was treated for a UTI with Cipro on 10/11 and she was given a prescription for fluconazole by on 10/11. I really need to repeat her culture as the last one we did showed resistant yeast. If she has a patrol captain near her, she could go and get an yeast culture there. NG ENGINEER * Telephone Encounter - Iris Lundy LPN - 10/16/2020 11:40 AM MINING ENGINEER I spoke with the patient - explained we have given her diflucan for the past couple of months. I reminded her - the last testing we did the diflucan was not good enough to get rid of it. We really need to see her in the office. The patient understands, but lives so far and no one around to bring her . Plus it is so cold outside - they are not going out . I reviewed her allergies and local pharmacy - I explained I will have to get this message to Dr. Zhao and see what she says. Patient is agreeable - wonders if maybe increasing the gabapentin will help She is having a lot of burning - knows it is not a UTI was just checked at her PCP office. The diflucan always seems to help. NG ENGINEER * Telephone Encounter - Manju Wild - 10/16/2020 11:16 AM CST Pt callied stating she needs a refill on fluconazole (DIFLUCAN) 200 MG tablet CB#[phone] NG ENGINEER documented in this encounter Plan of Treatment Upcoming Encounters Date Type Department Care Team (Late st Contact Info) Description 05/24/2025 2:00 PM CDT Office Visit [facility] - ASSESSMENT SPECIALIST [address], [facility] 200 [place] [address] Aye Dao MD [address] [facility] [address] [place] [address] documented as of this encounter Visit Diagnoses Not on filedocumented in this encounter Care Teams Automation Developer Relationship Specialty Start Date End Date Casa Encarnacion MD PCP - General 12/12/15 documented as of this encounter
--- OUTSIDE RECORDS SUMMARY | 2024-09-08 20:40 | XMS_ITS | Encounter Summary ---
Author Organization [facility] Health Address [address] [facility] [place] [address] Care Team Providers Care Behavioral Psychologist Name Role Phone Casa Encarnacion MD Primary Care Provider [phone] Reason for Visit * Reason Onset Date Comments Med Question 04/01/2019 Encounter Details Date Type Department Care Team (Late st Contact Info) Description 04/01/2019 Telephone [facility] [address] [place] [address] Aye Dao MD [address] [facility] 400 [place] [address] Med Question Social History Tobacco [...] Telephone Encounter - Iris Lundy LPN - 04/01/2019 2:30 PM CDT I called the patient - Patient took both pills But the burning continues but not as bad. Last pill was Friday. Burning on the side of her vagina. It is off and on. Is doing her sitz baths and using crisco. I explained - we have already medicated her - if she is not better will need to be seen. Maybe there is something else going on and she needs different medication . Patient voiced understanding - also said she thinks she is a little bit better this after noon even. We discussed the fact the medication stays in her system for awhile. So if not better or gets worse will call me back to be seen. Patient has an appt early apr with Dr. Zhao * Telephone Encounter - Caitie Tomlinson - 04/01/2019 11:46 AM CDT Pt called stating that she has questions regarding a medication she is on. Pt would like a call from the nurse. Cb# [phone] documented in this encounter Plan of Treatment Upcoming Encounters Date Type Department Care Team (Late st Contact Info) Description 05/24/2025 2:00 PM CDT Office Visit [facility] - VICE PRESIDENT DIVERSITY [address], [facility] 200 [place] [address] Aye Dao MD [address] [facility] [address] [place] [address] documented as of this encounter Visit Diagnoses Not on filedocumented in this encounter Care Teams Behavioral Psychologist Relationship Specialty Start Date End Date Casa Encarnacion MD PCP - General 12/12/15 documented as of this encounter
--- OUTSIDE RECORDS SUMMARY | 2024-09-08 20:40 | XMS_ITS | Encounter Summary ---
Author Organization [facility] Health Address [address] [place] [address] Care Team Providers Care Hotel Or Motel Room Service Supervisor Name Role Phone Casa Encarnacion MD Primary Care Provider [phone] Reason for Visit * Reason Onset Date Comments Nurse Only 06/12/2021 Encounter Details Date Type Department Care Team (Late st Contact Info) Description 06/12/2021 Telephone [facility] [address] [facility] [address] [place], [place] [id number] Aye Dao MD [address] [facility] [address] [place] [address] Nurse Only Social History Tobacco [...] Telephone Encounter - Iris Lundy LPN - 06/13/2021 11:12 AM CDT I called the patient - gave her Dr. Leonard's message . She is hesitant but will do as instructed. I told her to use the cool pack and crisco more often She will try * Telephone Encounter - Aye Leonard MD - 06/13/2021 10:27 AM CDT Recommend she stop the nystatin capsules for now. Has had enough treatment to cover any yeast. I will not give her any more fluconazole as the yeast she does get is resistant to it. The nystatincapsules will treat the yeast. * Telephone Encounter - Marilin Alvarado, KATLYN - 06/12/2021 12:49 PM CDT Spoke to patient She used the nystatin last night Woke this morning and showered and put another nystatin capsule in the vagina at 8 or 9 am By 11 am, very severe vaginal pain And pressure Took an oral diflucan that she had on hand immediately (also around 11am) And got relief Even now about 2 hours later she is still feeling relief Links this to the oral fluconazole Will update Dr Leonard The office will call her back after hearing from her provider. if not today, tomorrow * Telephone Encounter - Kesha Mora - 06/12/2021 12:13 PM CDT Pt is returning missed call from Marilin Allen CB# [phone] documented in this encounter Plan of Treatment Upcoming Encounters Date Type Department Care Team (Late st Contact Info) Description 05/24/2025 2:00 PM CDT Office Visit [facility] - ENVIRONMENTAL SCIENCE INSTRUCTOR [address], [facility] 200 [place] [address] Aye Dao MD [address] [place] [address] documented as of this encounter Visit Diagnoses Not on filedocumented in this encounter Care Teams Hotel Or Motel Room Service Supervisor Relationship Specialty Start Date End Date Casa Encarnacion MD PCP - General 12/12/15 documented as of this encounter
--- OUTSIDE RECORDS SUMMARY | 2024-09-08 20:40 | XMS_ITS | Encounter Summary ---
Author Organization [facility] Health Address [address] [facility] [place] [address] Care Team Providers Care Aeronautical Engineering Technologist Name Role Phone Casa Encarnacion MD Primary Care Provider [phone] Reason for Visit * Reason Onset Date Comments UTI 05/12/2019 Encounter Details Date Type Department Care Team (Late st Contact Info) Description 05/12/2019 Telephone [facility] [address] [place], [place] [id number] Aye Dao MD [address] [address] UTI Social History Tobacco Use Types [...] Telephone Encounter - Marilin Alvarado RN - 05/12/2019 1:20 PM CDT Return call to patient She has some burning Plans to take the paper she was given from Dr Leonard last to turn in specimen for yeast but alsowould like to check for urinary tract infection at the same time Asks for order for [facility] for urine culture She uses the [facility] at the [facility] Lab order placed She will contact the office Friday if she has not heard from our office with results * Telephone Encounter - Katty Murphy - 05/12/2019 12:41 PM CDT Pt called stating that she thinks she has a UTI and would like to leave a urine sample at a [facility]. Callback#[phone] documented in this encounter Plan of Treatment Upcoming Encounters Date Type Department Care Team (Late st Contact Info) Description 05/24/2025 2:00 PM CDT Office Visit [facility] - COMPENSATION AGENT [address], [facility] 200 [place] [address] Aye Dao MD [address] [facility] 400 [place] [address] documented as of this encounter Procedures Procedure Name Priority Date/Time Associated Diagnosis Comments CULTURE URINE Routine 05/12/2019 2:10 PM CDT Acute cystitis without hematuria documented in this encounter Results * (ABNORMAL) CULTURE URINE (05/12/2019 2:10 PM CDT) Culture (A) [facility] Comment: ??CULTURE, URINE, ROUTINE ?MICRO NUMBER: ?[id number] ??TEST STATUS: ? FINAL ??SPECIMEN SOURCE: ?? URINE ??SPECIMEN QUALITY: ??ADEQUATE ??RESULT: ?Greater than 100,000 CFU/mL of Klebsiella pneumoniae ?K.pneumoniae ?INT ?? LEO ?? AMOX/CLAVULANATE ? S ? <=2 ?? AMPICILLIN ? R ? 16 ?? AMP/SULBACTAM ?S ? 4 ?? CEFAZOLIN ?NR ?<=4 2 ?? CEFEPIME ? S ? <=1 ?? CEFTRIAXONE ?S ? <=1 ?? CIPROFLOXACIN ?S ? <=0.25 ?? ERTAPENEM ?S ? <=0.5 ?? GENTAMICIN ? S ? <=1 ?? IMIPENEM ? S ? <=0.25 ?? LEVOFLOXACIN ? S ? <=0.12 ?? NITROFURANTOIN ? S ? <=16 ?? PIP/TAZOBACTAM ? S ? <=4 ?? [...] cefuroxime, cephalexin ?and loracarbef. Test Performed at: [facility] ??[id number] ZORAIDA TYLER MD Urine URINE SPECIMEN OBTAINED BY CLEAN CATCH PROCEDURE / Unknown 05/12/2019 2:10 PM CDT 05/12/2019 2:10 PM CDT Aye Dao MD LAB - MICROBIOLOGY ORDERABLES Performing Organization Address City/State/[facility] Co de Phone Number [address] [address] documented in this encounter Visit Diagnoses Diagnosis Acute cystitis without hematuria- Primary Acute cystitis documented in this encounter Care Teams Aeronautical Engineering Technologist Relationship Specialty Start Date End Date Casa Encarnacion MD PCP - General 12/12/15 documented as of this encounter
--- OUTSIDE RECORDS SUMMARY | 2024-09-08 20:40 | XMS_ITS | Encounter Summary ---
Author Organization [facility] Health Address [address] [facility] [place] [address] Care Team Providers Care Taper Machine Name Role Phone Casa Encarnacion MD Primary Care Provider [phone] Reason for Visit * Reason Comments Refill Request Encounter Details Date Type Department Care Team (Late st Contact Info) Description 06/21/2019 Refill [facility] [address] [facility] [address] [place] [address] Aye Dao MD [address] [facility] [address] [place] [address] Refill Request Social History Tobacco [...] Telephone Encounter - Marilin Alvarado RN - 06/21/2019 2:08 PM CDT Last seen 04/14/19 Gabapentin 300 mg One capsule by mouth at breakfast and lunch, two capsules at bedtime (4 capsules a day for total of 1200 mg a day) Rx refill sent through [facility] after pharmacy fax'd request documented in this encounter Plan of Treatment Upcoming Encounters Date Type Department Care Team (Late st Contact Info) Description 05/24/2025 2:00 PM CDT Office Visit [facility] - DEICER ELEMENT WINDER MACHINE [address] [place] [address], [facility] 200 [place] [address] Aye Dao MD [address] [facility] 400 [place] [address] documented as of this encounter Visit Diagnoses Diagnosis Vulvodynia documented in this encounter Care Teams Taper Machine Relationship Specialty Start Date End Date Casa Encarnacion MD PCP - General 12/12/15 documented as of this encounter
--- OUTSIDE RECORDS SUMMARY | 2024-09-08 20:40 | XMS_ITS | Encounter Summary ---
Author Organization [facility] Health Address [address] [facility] [place] [address] Care Team Providers Care Grain Sacker Name Role Phone Casa Encarnacion MD Primary Care Provider [phone] Reason for Visit * Reason Onset Date Comments Itching Vaginal 04/13/2021 Encounter Details Date Type Department Care Team (Late st Contact Info) Description 04/13/2021 Telephone [facility] [address] [place] [address] Aye Dao MD [address] [facility] [address] [place] [address] Itching Vaginal Social History Tobacco Use Types Packs/Day Years [...] Telephone Encounter - Iris Lundy LPN - 04/13/2021 2:12 PM CDT Attempt to return call - left a message I will try back again later. I called the patient - left a message I am sorry we werent able to connect. But we will not be giving her any Medication until we know what to give her. She can try cool/cold packs to the area. Cool rinses , baking soda sitz baths . If things are horrible - she can call her PCP,urgent care or even ER * Telephone Encounter - Natalia Ortiz - 04/13/2021 1:13 PM CDT Pt calling back for the second time in regards to the burning and itching. States it's extremely unbareable and would like to speak with a nurse and get a rx justin # [phone] documented in this encounter Plan of Treatment Upcoming Encounters Date Type Department Care Team (Late st Contact Info) Description 05/24/2025 2:00 PM CDT Office Visit [facility] - INSIDE UPHOLSTERER [address], [facility] [address] [place] [address] Aye Dao MD [address] [facility] [address] [place] [address] documented as of this encounter Visit Diagnoses Not on filedocumented in this encounter Care Teams Grain Sacker Relationship Specialty Start Date End Date Casa Encarnacion MD PCP - General 12/12/15 documented as of this encounter
--- OUTSIDE RECORDS SUMMARY | 2024-09-08 20:40 | XMS_ITS | Encounter Summary ---
Author Organization [facility] Health Address [address] [facility] [place] [address] Care Team Providers Care Snuff Drier Name Role Phone Casa Encarnacion MD Primary Care Provider [phone] Reason for Visit * Reason Onset Date Comments Nurse Only 04/24/2021 Encounter Details Date Type Department Care Team (Late st Contact Info) Description 04/24/2021 Telephone [facility] [address] [facility] [address] [place], [place] [id number] Aye Dao MD [address] [facility] [address] [address] [place] [address] Nurse Only Social History Tobacco [...] Telephone Encounter - Iris Lundy LPN - 04/25/2021 11:43 AM CDT I called the patient - gave her Dr. Zhao's message. Patient voiced understanding and is agreeable. * Telephone Encounter - Aye Zhao MD - 04/25/2021 11:17 AM CDT I sent in one script for the fluconazole 200 mg tablet, one by mouth every other day for three doses. If the yeast culture is not positive, we can not keep giving her fluconazole. If it shows that she does have yeast I will send in vaginal suppositories for her to use, as these will not affect her liver. * Telephone Encounter - Iris Lundy LPN - 04/25/2021 11:01 AM CDT I called the patient - has had a lot of burning and itching - just terrible. Patient is requesting the diflucan again. Said the doctors in her area will not give her anymore. We discussed her yeast culture is not yet complete. She has tried ice packs to the area - not really do anything I will check with Dr. Zhao and get back with her. * Telephone Encounter - Kesha Mora - 04/24/2021 3:53 PM CDT Pt is wanting to speak with a nurse. She states she had some testing done during her last visit. Ptis now experiencing some more issues with itching and burning. CB# [phone] documented in this encounter Plan of Treatment Upcoming Encounters Date Type Department Care Team (Late st Contact Info) Description 05/24/2025 2:00 PM CDT Office Visit [facility] - MODERATE NEEDS TEACHER [address], [address] [place] [address] Aye Dao MD [address] [place] [address] documented as of this encounter Visit Diagnoses Not on filedocumented in this encounter Care Teams Snuff Drier Relationship Specialty Start Date End Date Casa Encarnacion MD PCP - General 12/12/15 documented as of this encounter
--- OUTSIDE RECORDS SUMMARY | 2024-09-08 20:40 | XMS_ITS | Encounter Summary ---
Author Organization [facility] Address [address] [facility] [place] [address] Care Team Providers Care Scrap Handler Name Role Phone Casa Encarnacion MD Primary Care Provider [phone] Encounter Details Date Type Department Care Team (Late Contact Info) Description 05/12/2019 Orders Only [facility] [address] [place] [address] Aye Dao MD [address] [address] Social History Tobacco Use Types Packs/Day Years [...] Description 05/24/2025 2:00 PM CDT Office Visit [facility] - MUD MIXER OPERATOR [address], [facility] [address] [place] [address] Aye Dao MD [address] [facility] 400 [place] [address] (work) documented as of this encounter Procedures Procedure Name Priority Date/Time Associated Diagnosis Comments SUSCEPTIBILITY YEAST 05/12/2019 2:12 PM CDT CULTURE YEAST WITH DIRECT FLUORESCENT MODESTA 05/12/2019 2:12 PM CDT documented in this encounter Results * SUSCEPTIBILITY YEAST (05/12/2019 2:12 PM CDT) [...] of this test have been determined by [facility] This test not be used for diagnosis without confirmation by other medically established means. Test Performed at: [facility] [address] [place] [address] ??[id number] Tony PATTERSON 05/12/2019 2:12 PM CDT 05/12/2019 2:12 PM CDT Aye Dao MD LAB - MICROBIOLOGY ORDERABLES [facility] [address] [place] [address] * (ABNORMAL) CULTURE YEAST WITH DIRECT FLUORESCENT MODESTA (05/12/2019 2:12 PM CDT) Smear (A) [facility] Comment: ??CULTURE, YEAST, W/DIRECT FLUORESCENT MODESTA ?MICRO NUMBER: ?[id number] ??TEST STATUS: ? FINAL ??SPECIMEN SOURCE: ?? WOUND (SITE NOT SPECIFIED) ??SPECIMEN QUALITY: ??ADEQUATE ??SMEAR: ? No fungal elements seen. ??RESULT: ?Bambi albicans Test Performed at: [facility] ??[id number] ZORAIDA TYLER MD 05/12/2019 2:12 PM CDT 05/12/2019 2:12 PM CDT Aye Dao MD LAB - MICROBIOLOGY ORDERABLES Performing Organization Address City/State/[facility] Co de Phone Number [address] [address] documented in this encounter Visit Diagnoses Not on filedocumented in this encounter Care Teams Scrap Handler Relationship Specialty Start Date End Date Casa Encarnacion MD PCP - General 12/12/15 documented as of this encounter
--- OUTSIDE RECORDS SUMMARY | 2024-09-08 20:40 | XMS_ITS | Encounter Summary ---
Author Organization [facility] Health Address [address] [place] [address] Care Team Providers Care Thermal Cutter Hand Name Role Phone Casa Encarnacion MD Primary Care Provider [phone] Reason for Visit * Reason Onset Date Comments Request Lab Order 05/18/2019 Encounter Details Date Type Department Care Team (Late st Contact Info) Description 05/18/2019 Telephone [facility] [address] [place] [address] Aye Dao MD [address] [address] Request Lab Order Social History Tobacco Use Types Packs/Day Years [...] Telephone Encounter - Tobias Mora RN - 05/19/2019 10:42 AM CDT Luanne made aware. Agrees to start Diflucan. All questions answered. * Telephone Encounter - Aye Zhao MD - 05/19/2019 7:57 AM CDT Yeast culture positive for favian albicans. Script for Diflucan 200 mg tablet, one by mouth every other day for three doses sent to her pharmacy. * Telephone Encounter - Iris Lundy LPN - 05/18/2019 11:59 AM CDT I spoke with the patient - she can not get in to the Urologist office until first of jun. She will finish her antibiotic this week - is needing to give a cure culture We discussed the need to be off the antibiotic for 5 full days at least. She will go to [facility] in [facility] next fri or . Orders placed and hand faxed. Info for [facility] put in patients snap shot. Patient is also having some itching was wondering about her yeast culture results. I explained we have + preliminary but not yet a final We Will check with Dr. Zhao and let her know. * Telephone Encounter - Beth Rojas - 05/18/2019 11:21 AM CDT Pt calling to inform Dr Zhao that she has completed her UTI medication. Pt is requesting Lab order be sent to hospital near her home. Pt would like to speak w/a Nurse to discuss. documented in this encounter Plan of Treatment Upcoming Encounters Date Type Department Care Team (Late st Contact Info) Description 05/24/2025 2:00 PM CDT Office Visit [facility] - CONGRESSIONAL DISTRICT AIDE [address], [facility] [address] [place] [address] Aye Dao MD [address] [place] [address] Scheduled Orders Name Type Priority Associated Diagnoses Orde r Schedule CULTURE URINE Microbiology Routine Acute cystitis without hematuria Ordered: 05/18/2019 documented as of this encounter Visit Diagnoses Diagnosis Acute cystitis without hematuria- Primary Acute cystitis Yeast infection of the vagina Candidiasis of vulva and vagina documented in this encounter Care Teams Thermal Cutter Hand Relationship Specialty Start Date End Date Casa Encarnacion MD PCP - General 12/12/15 documented as of this encounter
--- OUTSIDE RECORDS SUMMARY | 2024-09-08 20:40 | XMS_ITS | Encounter Summary ---
Author Organization [facility] Health Address [address] [facility] [place] [address] Care Team Providers Care Boarding Room Fixer Name Role Phone Casa Encarnacion MD Primary Care Provider Reason for Visit * Reason Onset Date Comments Medication Issue 06/11/2021 Encounter Details Date Type Department Care Team (Late st Contact Info) Description 06/11/2021 Telephone [facility] [address] [place], [place] [id number] Aye Dao MD [address] [facility] 400 [place] [address] Medication Issue Social History Tobacco [...] Telephone Encounter - Iris Lundy LPN - 06/11/2021 4:10 PM CDT I called the patient - gave her Dr. Zhao's message. Patient voiced understanding and is agreeable. * Telephone Encounter - Aye Zhao MD - 06/11/2021 3:35 PM CDT It is fine for her to use a nystatin vaginal capsule twice daily for the next week. This should treat any yeast with that length of use. * Telephone Encounter - Iris Lundy LPN - 06/11/2021 11:11 AM CDT I called the patient - was told she is out of town and asked to call back later when she is in. Patient is expected to be home later this afternoon. I spoke with the patient - she has been using the nystatin - thinks it is some better. The patient is wondering if she can use the nystatin vaginal inserts one in the am and another at bedtime ? I will ask - she has already used them for the 5 days and more . The patient is hoping to get off the diflucan her PCP has her on since her last UTI. Said she is better in the afternoon , uses her nystatin around 930 pm. The am is bad. Her issues are always burning , bad horrible burning. I told her to use the cold packs first thing in the am before starting her day. Also I can not tellher stop the diflucan , but I reminder her - the last culture we did - did not show any yeast at all . Also the culture that did show yeast - it ws resistant to diflucan. I told her to call her PCP ask about stopping the diflucan . I will check about the nystatin - how long to use it and if she can use it 2 x day . Patient is agreeable. * Telephone Encounter - Radha Baker - 06/11/2021 8:46 AM CDT Pt called in stating that new medication is not agreeing with her. Pt would like to be contacted [phone]. documented in this encounter Plan of Treatment Upcoming Encounters Date Type Department Care Team (Late st Contact Info) Description 05/24/2025 2:00 PM CDT Office Visit [facility] - GRINDER MACHINE SETTER [address], [facility] [address] [place] [address] Aye Dao MD [address] [facility] [address] [place] [address] documented as of this encounter Visit Diagnoses Not on filedocumented in this encounter Care Teams Boarding Room Fixer Relationship Specialty Start Date End Date Casa Encarnacion MD PCP - General 12/12/15 documented as of this encounter
--- OUTSIDE RECORDS SUMMARY | 2024-09-08 20:40 | XMS_ITS | Encounter Summary ---
Author Organization [facility] Address [facility] [place] [address] Care Team Providers Care Chief Commercial Officer Name Role Phone Casa Encarnacion MD Primary Care Provider Reason for Visit * Reason Onset Date Comments Med Question 03/22/2019 Encounter Details Date Type Department Care Team (Late st Contact Info) Description 03/19/2019 Telephone [facility] - HEARING CARE PROFESSIONAL [address] [address] Aye Dao MD [address] [place] [address] Med Question Social History Tobacco Use [...] Telephone Encounter - Marilin Alvarado RN - 03/22/2019 12:04 PM CDT Return call to patient She said she was on the antibiotic over the weekend and is supposed to finish it on Friday Notices some improvement on the burning For now not refilling the Diflucan She does not have the itching or discharge that might suggest yeast infection Patient will finish the antibiotics for UTI She is to call with an update If itching or discharge develops, she will call sooner. * Telephone Encounter - Bert Ortiz - 03/22/2019 9:35 AM CDT Pt called in stating she would like to speak with the nurse concerning a prescription. Callback#[phone] * Telephone Encounter - Elisa Fisher APRN-CNP - 03/22/2019 8:51 AM CDT Last yeast cxl in was negative. Doubt needs ant fungal. If any sx developing ok to repeat x 1 dose. * Telephone Encounter - Marilin Alvarado RN - 03/19/2019 3:02 PM CDT Saw the urologist in [place] Gave the patient Rx Bactrim BID x 7 days For UTI Patient is asking for a refill of the Diflucan 200 # 3 she takes every other day, as a just in case She fears developing a yeast infection from the antibiotic Does not have symptoms of yeast infection today Aware Dr Leonard is out of the office this month We are going to check with her covering partner and call patient back on Thursday 03/22 Aware we will have a better idea Friday if the Bactrim is starting to cause s/s yeast Last seen: 10/28/18 NOV: 04/14/19 NKDA Last fill Rx Diflucan 200: 02/19/2019 * Telephone Encounter - Caitie Tomlinson - 03/19/2019 1:58 PM CDT Pt called requesting call back regarding her medication. Pt cb# [phone] documented in this encounter Plan of Treatment Upcoming Encounters Date Type Department Care Team (Late st Contact Info) Description 05/24/2025 2:00 PM CDT Office Visit [facility] - HEARING CARE PROFESSIONAL [address], [facility] 200 [place] [address] Aye Dao MD 1031 [facility] 400 [place] [address] documented as of this encounter Visit Diagnoses Not on filedocumented in this encounter Care Teams Chief Commercial Officer Relationship Specialty Start Date End Date Casa Encarnacion MD PCP - General 12/12/15 documented as of this encounter
--- OUTSIDE RECORDS SUMMARY | 2024-09-08 20:40 | XMS_ITS | Encounter Summary ---
Author Organization [facility] Health Address [address] [place] [address] Care Team Providers Care Field Software Engineer Name Role Phone Casa Encarnacion MD Primary Care Provider [phone] Reason for Visit * Reason Onset Date Comments Results 2019 Encounter Details Date Type Department Care Team (Late st Contact Info) Description 2019 Telephone [facility] [address] [place] [address] Aye Dao MD [address] [address] Results Social History Tobacco Use Types Packs/Day [...] Telephone Encounter - Marilin Alvarado RN - 2019 9:41 AM CDT Return call to patient Notified her the 02/19 urine culture was contamination bacteria only. Not UTI She is doing okay overall. Just feels some irritation. She has the third dose of her diflucan still to take tomorrow (Friday 02/23) She will call our office Friday afternoon or if irritation persists * Telephone Encounter - Katherine Katty - 2019 8:27 AM CDT Pt called stating that she thinks she has a UTI. Pt states that this started on Friday. Pt would like to know what the results were when she left her urine. Callback#[phone] documented in this encounter Plan of Treatment Upcoming Encounters Date Type Department Care Team (Late st Contact Info) Description 05/24/2025 2:00 PM CDT Office Visit [facility] - BANK REPRESENTATIVE [address], [facility] [address] [place] [address] Aye Dao MD [address] [facility] [address] [place] [address] documented as of this encounter Visit Diagnoses Not on filedocumented in this encounter Care Teams Field Software Engineer Relationship Specialty Start Date End Date Casa Encarnacion MD PCP - General 12/12/15 documented as of this encounter
--- OUTSIDE RECORDS SUMMARY | 2024-09-08 20:40 | XMS_ITS | Encounter Summary ---
Author Organization [facility] Health Address [address] [facility] [place] [address] Care Team Providers Care Guest Services Officer Name Role Phone Casa Encarnacion MD Primary Care Provider [phone] Reason for Visit * Reason Onset Date Comments Pain 05/13/2019 Vulvar Pain 05/13/2019 Encounter Details Date Type Department Care Team (Late st Contact Info) Description 05/13/2019 Telephone [facility] [address] [facility] [address] [place], [place] [address] Aye Dao MD [address] [facility] [address] [place] [address] Pain; Vulvar Pain Social History Tobacco Use Types Packs/Day Years [...] Telephone Encounter - Iris Lundy LPN - 05/13/2019 3:23 PM CDT I spoke with the patient - patient is feeling real bad. Patient has pain on her side. Right side . 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 Also has a headache. No fever. Voiding more frequently , voiding same amounts, no other differences with voiding. Patient is just sure she has a UTI - wants to use the OTC AZO . I told her that is ok - she will also rest and call back tomorrow for preliminary results. * Telephone Encounter - Ese Romero - 05/13/2019 2:01 PM CDT Patient called and needs someone to call her back. She is having pain in the vulva area. No blood. Pain is continous pain. Call back # [phone] documented in this encounter Plan of Treatment Upcoming Encounters Date Type Department Care Team (Late st Contact Info) Description 05/24/2025 2:00 PM CDT Office Visit [facility] - STRING WINDING MACHINE OPERATOR [address], [facility] [address] [place] [address] Aye Dao MD [address] [facility] [address] [place] [address] documented as of this encounter Visit Diagnoses Not on filedocumented in this encounter Care Teams Guest Services Officer Relationship Specialty Start Date End Date Casa Encarnacion MD PCP - General 12/12/15 documented as of this encounter
--- OUTSIDE RECORDS SUMMARY | 2024-09-08 20:40 | XMS_ITS | Encounter Summary ---
Author Organization [facility] Health Address [address] [place] [address] Care Team Providers Care Banquet Line Cook Name Role Phone Casa Encarnacion MD Primary Care Provider [phone] Reason for Visit * Reason Onset Date Comments Medication Clarification 01/26/2019 Encounter Details Date Type Department Care Team (Late st Contact Info) Description 01/26/2019 Telephone [facility] [address] [place] [address] Aye Dao MD [address] [address] Medication Clarification Social History Tobacco Use Types Packs/Day Years [...] Telephone Encounter - Iris Lundy LPN - 01/26/2019 3:29 PM CDT I spoke with the patient - she is wanting to know her urine culture results I informed her she is perfect. No bacteria at all. She is very happy - will call with needs. * Telephone Encounter - Bert Ortiz - 01/26/2019 2:01 PM CDT Pt called in stating she would like a call pertaining to her medication. Callback#[phone] documented in this encounter Plan of Treatment Upcoming Encounters Date Type Department Care Team (Late st Contact Info) Description 05/24/2025 2:00 PM CDT Office Visit [facility] - DIRECTOR SOCIAL [address], [facility] 200 [place] [address] Aye Dao MD [address] [facility] [address] [place] [address] documented as of this encounter Visit Diagnoses Not on filedocumented in this encounter Care Teams Banquet Line Cook Relationship Specialty Start Date End Date Casa Encarnacion MD PCP - General 12/12/15 documented as of this encounter
--- OUTSIDE RECORDS SUMMARY | 2024-09-08 20:40 | XMS_ITS | Encounter Summary ---
Author Organization [facility] Health Address [address] [facility] [place] [address] Care Team Providers Care Special Events Assistant Name Role Phone Casa Encarnacion MD Primary Care Provider [phone] Reason for Visit * Reason Comments Establish Care vulvodynia Encounter Details Date Type Department Care Team (Late st Contact Info) Description 05/09/2020 10:50 AM CDT Office Visit [facility] [address] [facility] [address] [place], [place] [id number] Aye Dao MD [address] [facility] [address] [place] [address] Vulvodynia (Primary Dx) Social History Tobacco Use Types Packs/Day Years [...] Sign Reading Time Taken Comments Blood Pressure 122/84 05/09/2020 10:41 AM CDT Pulse - - Temperature 36.7 ??C (98 ??F) 05/09/2020 10:41 AM CDT Respiratory Rate - - Oxygen Saturation - - Inhaled Oxygen Concentration - - Weight 63.5 kg (140 lb) 05/09/2020 10:41 AM CDT Height 160 cm (5' 3 ) 05/09/2020 10:41 AM CDT Body Mass Index 24.8 05/09/2020 10:41 AM CDT documented in this encounter Progress Notes * Aye Zhao MD - 05/09/2020 10:50 AM CDT [facility] Return Visit Date: 05/09/2020 Allergies: Allergies Allergen Reactions ??? Seasonal Other Sneezing VS: BP 122/84 Ht 5' 3 Wt 140 lb BMI 24.8 kg/m2 Treatment(s): gabapentin Status: stable Subjective: Was diagnosed with an ischemic stroke in January. Has been treated with antibiotics for UTIs many times and given Diflucan. Still on the gabapentin 300 mg in the morning and at lunch and 600 mg at bedtime. Her burning is much better Symptoms: (None=0; 10=Severe) Dyspareunia: Entry:not active Burning after intercourse:n/a Vaginal discharge: 0 Vulvar burnin Vulvar itchin Clitoral pain: 0 Vulvar pain: 0 Urinary symptoms: 0 Correct product use: VCG followed on all aspects: Good compliance Vulvar Examination: Normal anatomy. No pain with palpation. 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 F/U in 12 months Time of visit: [...] CDT Office Visit [facility] - GOLD LEAF GILDER [address], [facility] [address] [place] [address] Aye Dao MD [address] [facility] [address] [place] [address] documented as of this encounter Visit Diagnoses Diagnosis Vulvodynia- Primary documented in this encounter Care Teams Special Events Assistant Relationship Specialty Start Date End Date Casa Encarnacion MD PCP - General 12/12/15 documented as of this encounter
--- OUTSIDE RECORDS SUMMARY | 2024-09-08 20:40 | XMS_ITS | Encounter Summary ---
Author Organization [facility] Health Address [address] [place] [address] Care Team Providers Care Marketing Specialist Name Role Phone Casa Encarnacion MD Primary Care Provider [phone] Reason for Visit * Reason Onset Date Comments Pain Urinary 04/10/2021 Encounter Details Date Type Department Care Team (Late st Contact Info) Description 04/10/2021 Telephone [facility] [address] [place] [address] Aye Dao MD 1031 [facility] [address] [place] [address] Pain Urinary Social History Tobacco Use Types Packs/Day Years [...] Telephone Encounter - Iris Lundy LPN - 04/10/2021 10:36 AM CDT Last seen 05/2020 / need yeast testing as last results were resistant to diflucan I spoke with the patient She has itching and little bit of whitish discharge again . No odor. I explained we really need to get the culture done . The last one was resistant to diflucan - a medication she has been getting . Patient voiced understanding . I gave her an appt with Dr Fisher for this . Patient and daughter are agreeable. * Telephone Encounter - Manju Wild - 04/10/2021 9:13 AM CDT Pt called states she is having a burning and itching sensation in vaginal area CB# [phone] documented in this encounter Plan of Treatment Upcoming Encounters Date Type Department Care Team (Late st Contact Info) Description 05/24/2025 2:00 PM CDT Office Visit [facility] - BENCH ASSEMBLER ELECTRICAL [address] [facility], [facility] [address] [place] [address] Aye Dao MD 10[address] [facility] [address] [place] [address] documented as of this encounter Visit Diagnoses Not on filedocumented in this encounter Care Teams Marketing Specialist Relationship Specialty Start Date End Date Casa Encarnacion MD PCP - General 12/12/15 documented as of this encounter
--- OUTSIDE RECORDS SUMMARY | 2024-09-08 20:40 | XMS_ITS | Encounter Summary ---
Author Organization [facility] Health Address [address] [place] [address] Care Team Providers Care Substation Design Draftsperson Name Role Phone Casa Encarnacion MD Primary Care Provider [phone] Reason for Visit * Reason Comments Refill Request Encounter Details Date Type Department Care Team (Late st Contact Info) Description 03/13/2020 Refill [facility] [address] [facility] [address] [place] [address] Aye Dao MD [address] [facility] [address] [place] [address] Refill Request Social History Tobacco [...] Telephone Encounter - Iris Lundy LPN - 03/14/2020 1:50 PM CDT Last visit 04/2019 Next visit 05/2020 Last refill gabapentin 06/2019 Will send 1 refill to next appt documented in this encounter Plan of Treatment Upcoming Encounters Date Type Department Care Team (Late st Contact Info) Description 05/24/2025 2:00 PM CDT Office Visit [facility] - MANAGER VALUATION [address], [facility] [address] [place] [address] Aye Dao MD [address] [facility] [address] [place] [address] documented as of this encounter Visit Diagnoses Diagnosis Vulvodynia documented in this encounter Care Teams Substation Design Draftsperson Relationship Specialty Start Date End Date Casa Encarnacion MD PCP - General 12/12/15 documented as of this encounter
--- OUTSIDE RECORDS SUMMARY | 2024-09-08 20:40 | XMS_ITS | Encounter Summary ---
Author Organization [facility] Address [address] [facility] [place] [address] Care Team Providers Care Celery Tier Name Role Phone Casa Encarnacion MD Primary Care Provider [phone] Encounter Details Date Type Department Care Team (Late Contact Info) Description 09/05/2020 Orders Only [facility] Obstetrics Gynecology and Women's Health [address] [facility] [address] [place], [place] [id number] Aye Dao MD [address] [address] Social History Tobacco Use Types [...] 05/24/2025 2:00 PM CDT Office Visit [facility] - TEXTILE ARTIST [address], [facility] [address] [place] [address] Aye Dao MD [address] [facility] [address] [place] [address] documented as of this encounter Visit Diagnoses Not on filedocumented in this encounter Care Teams Celery Tier Relationship Specialty Start Date End Date Casa Encarnacion MD PCP - General 12/12/15 documented as of this encounter
--- OUTSIDE RECORDS SUMMARY | 2024-09-08 20:40 | XMS_ITS | Encounter Summary ---
Author Organization [facility] Health Address [address] [facility] [place] [address] Care Team Providers Care Brusher Hand Name Role Phone Casa Encarnacion MD Primary Care Provider [phone] Reason for Visit * Reason Comments Establish Care vulvodynia Encounter Details Date Type Department Care Team (Late st Contact Info) Description 04/14/2019 10:10 AM CDT Office Visit [facility] Obstetrics Gynecology and Women's Health [address] [facility] [address] [place] [address] Aye Dao MD [address] [facility] [address] [address] [place] [address] Vulvodynia (Primary Dx) Social History [...] Sign Reading Time Taken Comments Blood Pressure 134/80 04/14/2019 10:22 AM CDT Pulse - - Temperature - - Respiratory Rate - - Oxygen Saturation - - Inhaled Oxygen Concentration - - Weight 62.1 kg (137 lb) 04/14/2019 10:22 AM CDT Height 168.9 cm (5' 6.5 ) 04/14/2019 10:22 AM CD T Body Mass Index 21.78 04/14/2019 10:22 AM CDT documented in this encounter Patient Instructions * Patient Instructions* Aye Zhao MD - 04/14/2019 10:44 AM CDT When you have burning, self swab and then call your daughter. She will put your name and and date on the tube and take it with the order to [facility]. documented in this encounter Progress Notes * Aye Zhao MD - 04/14/2019 10:20 AM CDT [facility] Return Visit Date: 04/14/2019 Allergies: Allergies Allergen Reactions ??? Seasonal Other Sneezing VS: BP 134/80 Ht 5' 6.5 Wt 137 lb BMI 21.78 kg/m2 Treatment(s): gabapentin Status: stable Subjective: Still gets the burning and thinks that she needs Diflucan for it. Has not had a positive yeast culture. Is being followed by urologist for recurrent UTIs. Symptoms: (None=0; 10=Severe) Dyspareunia: Entry:not active Burning after intercourse:n/a Vaginal discharge: 0 Vulvar burnin can be 0 Vulvar itchin Clitoral pain: 0 Vulvar pain: 0 Urinary symptoms: 0 Correct product use: VCG followed on all aspects: Good compliance Vulvar Examination: Normal anatomy. No pain with palpation. Cultures collected: Urine Biopsy: Impression/Plan: 1. Vulvodynia Need to document yeast before treating again with Diflucan Daughter present and give instructions on self swabbing and taking order and swab to [facility] 2. F/U in 12 months Time of [...] Description 05/24/2025 2:00 PM CDT Office Visit [facility] - FACE MAN [address], [address] [place] [address] Aye Dao MD [address] [place] [address] Scheduled Orders Name Type Priority Associated Diagnoses Orde r Schedule CULTURE YEAST WITH DIRECT FLUORESCENT MODESTA Microbiology Routine Vulvodynia Expected: 07/08/2019, Expires: 05/15/2020 documented as of this encounter Visit Diagnoses Diagnosis Vulvodynia- Primary documented in this encounter Care Teams Brusher Hand Relationship Specialty Start Date End Date Casa Encarnacion MD PCP - General 12/12/15 documented as of this encounter
--- OUTSIDE RECORDS SUMMARY | 2024-09-08 20:40 | XMS_ITS | Encounter Summary ---
Author Organization [facility] Health Address [address] [facility] [place] [address] Care Team Providers Care Rope Silica Machine Operator Name Role Phone Casa Encarnacion MD Primary Care Provider [phone] Reason for Visit * Reason Onset Date Comments Itching Vaginal 04/13/2021 Encounter Details Date Type Department Care Team (Late st Contact Info) Description 04/13/2021 Telephone [facility] [address] [place] [address] Aye Dao MD 1031 [facility] 400 [place] [address] Itching Vaginal Social History Tobacco [...] Encounter - Iris Lundy LPN - 04/13/2021 11:02 AM CDT Will check with provider then call patient as she was just seen yesterday I just checked a yeast culture yesterday on the [facility] patient. ??We ??need to see results as she has been using the diflucan & still with symptoms. ? Her last culture shows resistance todiflucan. Have her use a cold pack for now. I told her as soon as the culture is back we would know the appropriate medicine to use IF it is yeast. Per Dr. Beard I called the patient - left Dr. Piresrs message on her voice mail. I explained we do not want to cause harm to her by giving her medication that will not work * Telephone Encounter - Natalia Ortiz - 04/13/2021 10:47 AM CDT Pt. States she is experiencing some burning/ itching & need some meds. CB# [phone] documented in this encounter Plan of Treatment Upcoming Encounters Date Type Department Care Team (Late st Contact Info) Description 05/24/2025 2:00 PM CDT Office Visit [facility] - OPERATIONS AGENT [address], [facility] 200 [place] [address] Aye Dao MD [address] [facility] 400 [place] [address] documented as of this encounter Visit Diagnoses Not on filedocumented in this encounter Care Teams Rope Silica Machine Operator Relationship Specialty Start Date End Date Casa Encarnacion MD PCP - General 12/12/15 documented as of this encounter
--- OUTSIDE RECORDS SUMMARY | 2024-09-08 20:40 | XMS_ITS | Encounter Summary ---
Author Organization [facility] Health Address [address] [facility] [place] [address] Care Team Providers Care Ski Molder Name Role Phone Casa Encarnacion MD Primary Care Provider [phone] Reason for Visit * Reason Onset Date Comments Abnormal Results Follow Up 01/07/2019 Encounter Details Date Type Department Care Team (Late st Contact Info) Description 01/07/2019 Telephone [facility] [address] [facility] [address] [place], [place] [id number] Aye Dao MD [address] [facility] [address] [place] [address] Abnormal Results Follow Up Social History Tobacco Use Types Packs/Day Years [...] Telephone Encounter - Marilin Alvarado RN - 01/07/2019 11:22 AM CDT Spoke to patient Notified her of the results and Dr Leonard plan Rx Bactrim already sent Rx Diflucan now sent also. She will contact her Primary Care for a local referral to urology for frequent UTIs (can't get to [facility] easily) Very grateful for Dr Leonard's care * Telephone Encounter - Aye Leonard MD - 01/07/2019 10:55 AM CDT Patient with another documented UTI. Now Coag neg Staph. Script for Bactrim sent in for 7 days. Needs to use the Diflucan 200 mg tablet, one by mouth every other day for three doses after she completes the antibiotics. I would like for her to see one of our urogynecologist for recurrent UTIs. documented in this encounter Plan of Treatment Upcoming Encounters Date Type Department Care Team (Late st Contact Info) Description 05/24/2025 2:00 PM CDT Office Visit [facility] - DIRECTOR NICU [address], [facility] 200 [place] [address] Aey Dao MD 1031 [facility] [address] [place] [address] documented as of this encounter Visit Diagnoses Diagnosis Acute cystitis without hematuria- Primary Acute cystitis Vulvar burning Unspecified symptom associated with female genital organs documented in this encounter Care Teams Ski Molder Relationship Specialty Start Date End Date Casa Encarnacion MD PCP - General 12/12/15 documented as of this encounter
--- OUTSIDE RECORDS SUMMARY | 2024-09-08 20:40 | XMS_ITS | Encounter Summary ---
Author Organization [facility] Health Address [address] [facility] [place] [address] Care Team Providers Care Third Shift Lieutenant Name Role Phone Casa Encarnacion MD Primary Care Provider [phone] Reason for Visit * Reason Onset Date Comments UTI 01/04/2019 Encounter Details Date Type Department Care Team (Late st Contact Info) Description 01/04/2019 Telephone [facility] [address] [place] [address] Aye Dao MD [address] [address] UTI Social History Tobacco Use [...] Telephone Encounter - Marilin Alvarado RN - 01/04/2019 10:01 AM CDT Return call to patient Worried she may have UTI Remembers she once left urine at [facility] [phone] Not real bad symptoms but concerned it could be yeast infection or UTI or both Currently, Diflucan every other day for 3 days, 2 already in and can tell things are a little better with one dose left (of the refill on the diflucan that Dr Leonard originally wrote 10/21/18) Only symptom is some burning with urination Plan urine culture today No treatment until results back on Saturday 01/06 Patient will call our office Friday if she has not heard from us. * Telephone Encounter - Katty Murphy - 01/04/2019 9:15 AM CDT Pt called stating that she thinks she has a UTI and this started on Friday. Pt would like something called in to [facility]. Pt would like call back Callback#[phone] documented in this encounter Plan of Treatment Upcoming Encounters Date Type Department Care Team (Late st Contact Info) Description 05/24/2025 2:00 PM CDT Office Visit [facility] - NOTE KEEPER [address] [facility] 200 [place] [address] Aye Dao MD 10[address] [facility] 400 [place] [address] documented as of this encounter Procedures Procedure Name Priority Date/Time Associated Diagnosis Comments CULTURE URINE Routine 01/04/2019 1:28 PM CDT Abnormal urinalysis documented in this encounter Results * (ABNORMAL) CULTURE URINE (01/04/2019 1:28 PM CDT) Culture (A) [facility] Comment: ??CULTURE, URINE, ROUTINE ?MICRO NUMBER: ?[id number] ??TEST STATUS: ? FINAL ??SPECIMEN SOURCE: ?? URINE ??SPECIMEN QUALITY: ??ADEQUATE ??RESULT: ?Greater than 100,000 CFU/mL of ? Coagulase negative staphylococcus, not S. ? saprophyticus ?Coag.neg.staph. ?INT ?? LEO ?? CIPROFLOXACIN ?R ? >=8 ?? GENTAMICIN ? S ? <=0.5 ?? LEVOFLOXACIN ? R ? >=8 ?? MOXIFLOXACIN ? R ? 4 ?? NITROFURANTOIN ? S ? <=16 ?? OXACILLIN ?S ? <=0.25 1 ?? TETRACYCLINE ? S ? 2 ?? TRIMETHOPRIM/SULFA ? S ? <=10 ?? VANCOMYCIN ? S ? 1 S=Susceptible ??I=Intermediate ??R=Resistant ??* = Not Tested NR = Not Reported ??NN = See Therapy Comments THERAPY COMMENTS ?Note 1: ?Oxacillin-susceptible staphylococci are ?susceptible to other penicillinase-stable ?penicillins (e.g. Methicillin, Nafcillin), beta- ?lactam/beta-lactamase inhibitor combinations, and ?cephems with staphylococcal indications, including ?Cefazolin. Test Performed at: [facility] [address] [place], [place] ??[id number] ZORAIDA TYLER MD Urine URINE SPECIMEN OBTAINED BY CLEAN CATCH PROCEDURE / Unknown 01/04/2019 1:28 PM CDT 01/04/2019 1:34 PM CDT Aye Dao MD LAB - MICROBIOLOGY ORDERABLES Performing Organization Address City/State/[facility] Co de Phone Number [facility] [address] [place] [address] documented in this encounter Visit Diagnoses Diagnosis Abnormal urinalysis- Primary Other nonspecific finding on examination of urine documented in this encounter Care Teams Third Shift Lieutenant Relationship Specialty Start Date End Date Casa Encarnacion MD PCP - General 12/12/15 documented as of this encounter
--- OUTSIDE RECORDS SUMMARY | 2024-09-08 20:40 | XMS_ITS | Encounter Summary ---
Author Organization [facility] Health Address [address] [place] [address] Care Team Providers Care Behavior Interventionist Name Role Phone Casa Encarnacion MD Primary Care Provider [phone] Reason for Visit * Reason Comments Refill Request Encounter Details Date Type Department Care Team (Late st Contact Info) Description 01/10/2021 Refill [facility] [address] [facility] [address] [address] Aye Dao MD [address] [facility] [address] [place] [address] Refill Request Social History Tobacco [...] Telephone Encounter - Iris Lundy LPN - 01/10/2021 9:50 AM CDT Last visit 05/2020 Next visit 05/2021 Last refill gabapentin 07/2020 Will send refills documented in this encounter Plan of Treatment Upcoming Encounters Date Type Department Care Team (Late st Contact Info) Description 05/24/2025 2:00 PM CDT Office Visit [facility] - SIDEROGRAPHIST [address], [facility] 200 [address] Aye Dao MD [address] [facility] [address] [place] [address] documented as of this encounter Visit Diagnoses Diagnosis Vulvodynia documented in this encounter Care Teams Behavior Interventionist Relationship Specialty Start Date End Date Casa Encarnacion MD PCP - General 12/12/15 documented as of this encounter
--- OUTSIDE RECORDS SUMMARY | 2024-09-08 20:40 | XMS_ITS | Encounter Summary ---
Author Organization [facility] Health Address [address] [facility] [place] [address] Care Team Providers Care Printed Products Assembler Name Role Phone Casa Encarnacion MD Primary Care Provider [phone] Reason for Visit * Reason Onset Date Comments UTI 05/14/2019 Encounter Details Date Type Department Care Team (Late st Contact Info) Description 05/14/2019 Telephone [facility] [address] [place] [address] Aye Dao MD [address] [facility] [address] [place] [address] UTI Social History Tobacco Use [...] Telephone Encounter - Aye Zhao MD - 05/14/2019 8:17 AM CDT Informed patient that she has another bladder infection. Sensitive to Macrobid and script sent to her local pharmacy. Stressed the importance of following up with the urologist she sees in [place]. Letter sent to her urologist with a timeline of her infections and treatment. documented in this encounter Plan of Treatment Upcoming Encounters Date Type Department Care Team (Late st Contact Info) Description 05/24/2025 2:00 PM CDT Office Visit [facility] - SUBSCRIPTION CLERK [address], [facility] 200 [place] [address] Aye Dao MD [address] [facility] 400 [place] [address] documented as of this encounter Visit Diagnoses Diagnosis Acute cystitis without hematuria- Primary Acute cystitis documented in this encounter Care Teams Printed Products Assembler Relationship Specialty Start Date End Date Casa Encarnacion MD PCP - General 12/12/15 documented as of this encounter
--- OUTSIDE RECORDS SUMMARY | 2024-09-08 20:40 | XMS_ITS | Encounter Summary ---
Author Organization [facility] Health Address [address] [facility] [place] [address] Care Team Providers Care Food Specialist Name Role Phone Casa Encarnacion MD Primary Care Provider [phone] Reason for Visit * Reason Onset Date Comments UTI 05/27/2019 Returned Call 05/27/2019 Encounter Details Date Type Department Care Team (Late st Contact Info) Description 05/27/2019 Telephone [facility] [address] [facility] [address] [place] [address] Aye Dao MD [address] [facility] [address] [place] [address] UTI; Returned Call Social History Tobacco Use Types Packs/Day [...] Encounter - Tobias Mora RN - 05/28/2019 9:53 AM CDT Luanne agrees to start Cipro, then Diflucan. Cipro SE reviewed. She has an early Jun appt w/ Dr Alba Faxed last [address] Alba office in [place]: Confirmed Fax# for [place] Office: [phone]. * Telephone Encounter - Whitley Fenton - 05/28/2019 8:13 AM CDT Patient returning call to Dr Zhao or nurse. * Telephone Encounter - Aye Zhao MD - 05/27/2019 9:19 AM CDT Test of cure urine culture is still positive for K.pneumoniae. Was treated with Macrobid. Will sendin script for Cipro for 7 days as the LEO is much lower for this antibiotic. Patient has a refill on the Diflucan 200 mg tablet, one by mouth every other day for three doses she was given last week. To take after Cipro completed. Patient should have appt coming up with urologist in early Jun. She really needs to be calling his office with symptoms so he can order the cultures and follow up on theresults. Please fax last three urine cultures we order to him. Dr. Marimar Alba documented in this encounter Plan of Treatment Upcoming Encounters Date Type Department Care Team (Late st Contact Info) Description 05/24/2025 2:00 PM CDT Office Visit [facility] - LABORER CONSTRUCTION OR LEAK GANG [address], [facility] [address] [place] [address] Aye Dao MD [address] [facility] [address] [place] [address] documented as of this encounter Visit Diagnoses Diagnosis Acute cystitis without hematuria- Primary Acute cystitis documented in this encounter Care Teams Food Specialist Relationship Specialty Start Date End Date Casa Encarnacion MD PCP - General 12/12/15 documented as of this encounter
--- OUTSIDE RECORDS SUMMARY | 2024-09-08 20:40 | XMS_ITS | Encounter Summary ---
Author Organization [facility] Address [address] [place] [address] Care Team Providers Care Box Repairer Name Role Phone Casa Encarnacion MD Primary Care Provider [phone] Encounter Details Date Type Department Care Team (Late Contact Info) Description 11/01/2020 Orders Only [facility] - COVID Vaccine [address] [place] [address] Jose Rodriguez MD [address] [place], [place] [id number] Need for vaccination Social History Tobacco Use [...] Visit [facility] - PASSENGER SERVICE AGENT [address], [facility] 200 [place] [address] Aye Dao MD [address] [facility] [address] [place] [address] documented as of this encounter Visit Diagnoses Diagnosis Need for vaccination Need for prophylactic vaccination and inoculation against unspecified single disease documented in this encounter Care Teams Box Repairer Relationship Specialty Start Date End Date Casa Encarnacion MD PCP - General 12/12/15 documented as of this encounter
--- OUTSIDE RECORDS SUMMARY | 2024-09-08 20:40 | XMS_ITS | Encounter Summary ---
Author Organization [facility] Health Address [address] [facility] [place] [address] Care Team Providers Care Licensed Nurse Practitioner Name Role Phone Casa Encarnacion MD Primary Care Provider [phone] Reason for Visit * Reason Comments Refill Request Encounter Details Date Type Department Care Team (Late Contact Info) Description 07/10/2020 Refill [facility] [address] [place] [address] Aye Dao MD [address] [address] Refill Request Social History Tobacco Use [...] CDT Office Visit [facility] - GAMING FLOOR SUPERVISOR [address], [address] [place] [address] Aye Dao MD [address] [facility] 400 [place] [address] documented as of this encounter Visit Diagnoses Diagnosis Vulvodynia documented in this encounter Care Teams Licensed Nurse Practitioner Relationship Specialty Start Date End Date Casa Encarnacion MD PCP - General 12/12/15 documented as of this encounter
--- OUTSIDE RECORDS SUMMARY | 2024-09-08 20:40 | XMS_ITS | Encounter Summary ---
Author Organization [facility] Address [address] [facility] [place] [address] Care Team Providers Care Manufacturing Analyst Name Role Phone Casa Encarnacion MD Primary Care Provider [phone] Reason for Visit * Reason Onset Date Comments Patient Requested Call 02/19/2019 Bladder infection 02/19/2019 Encounter Details Date Type Department Care Team (Late st Contact Info) Description 02/19/[address] [facility] - THEORETICAL PHYSICS TEACHER [address] [address] Aye Dao MD [address] [place] [address] Patient Requested Call; Bladder infection Social History Tobacco Use Types Packs/Day Years [...] Telephone Encounter - Tobias Mora RN - 02/19/2019 3:22 PM CDT C/o some mild burning w/ voids. Denies odor, cloudy, freq or urgency. Also, itching, some white d/c when she wipes. Used Sitz bath today to help w/ itching. Would like to start Diflucan to help get through the weekend. Diflucan sent. Will wait for urine cx results before treating. * Telephone Encounter - Caitie Tomlinson - 02/19/2019 1:45 PM CDT Pt called stating that she is having some problems with herself and would like a call back. She was hesitant to tell me her symptoms but said it might be a bladder infection. Pt cb# [phone] documented in this encounter Plan of Treatment Upcoming Encounters Date Type Department Care Team (Late st Contact Info) Description 05/24/2025 2:00 PM CDT Office Visit [facility] - THEORETICAL PHYSICS TEACHER [address], [facility] 200 [place] [address] Aye Dao MD [address] [facility] 400 [place] [address] documented as of this encounter Procedures Procedure Name Priority Date/Time Associated Diagnosis Comments CULTURE URINE Routine 02/19/2019 3:44 PM CDT Acute cystitis without hematuria Recurrent UTI (urinary tract infection) documented in this encounter Results * CULTURE URINE (02/19/2019 3:44 PM CDT) Culture [facility] Comment: ??CULTURE, URINE, ROUTINE ?MICRO NUMBER: ?[id number] ??TEST STATUS: ? FINAL ??SPECIMEN SOURCE: ?? URINE, CLEAN CATCH ??SPECIMEN QUALITY: ??ADEQUATE ??RESULT: ?Multiple organisms present, each less than 10,000 ? CFU/mL. These organisms, commonly found on ? external and internal genitalia, are considered ? to be colonizers. No further testing performed. Test Performed at: [email or web address] ??[id number] ZORAIDA TYLER MD Urine URINE SPECIMEN OBTAINED BY CLEAN CATCH PROCEDURE / Unknown 02/19/2019 3:44 PM CDT 02/20/2019 12:36 AM CDT Aye Dao MD LAB - MICROBIOLOGY ORDERABLES [address] [address] documented in this encounter Visit Diagnoses Diagnosis Acute cystitis without hematuria- Primary Acute cystitis Recurrent UTI (urinary tract infection) Urinary tract infection, site not specified Vulvar burning Unspecified symptom associated with female genital organs Vulvovaginal itching Pruritus of genital organs documented in this encounter Care Teams Manufacturing Analyst Relationship Specialty Start Date End Date Casa Encarnacion MD PCP - General 12/12/15 documented as of this encounter
--- OUTSIDE RECORDS SUMMARY | 2024-09-08 20:40 | XMS_ITS | Encounter Summary ---
Author Organization [facility] Address [address] [facility] [place] [address] Care Team Providers Care Locomotive Firer/Fireman Name Role Phone Casa Encarnacion MD Primary Care Provider [phone] Encounter Details Date Type Department Care Team (Late Contact Info) Description 10/16/2020 Orders Only [facility] Obstetrics Gynecology and Women's Health [address] [place] [address] Aye Dao MD [address] [address] Yeast infection involving the vagina and surrounding area Social History Tobacco Use Types Packs/Day Years [...] Visit [facility] - BRICKLAYER TENDER [address], [facility] 200 [place] [address] Aye Dao MD [address] [facility] 400 [place] [address] documented as of this encounter Visit Diagnoses Diagnosis Yeast infection involving the vagina and surrounding area Candidiasis of vulva and vagina documented in this encounter Care Teams Locomotive Firer/Fireman Relationship Specialty Start Date End Date Casa Encarnacion MD PCP - General 12/12/15 documented as of this encounter
--- OUTSIDE RECORDS SUMMARY | 2024-09-08 20:40 | XMS_ITS | Encounter Summary ---
Author Organization [facility] Address [address] [facility] [place] [address] Care Team Providers Care Inspector Wire Products Name Role Phone Casa Encarnacion MD Primary Care Provider [phone] Reason for Visit * Reason Onset Date Comments Nurse Only 05/09/2021 Encounter Details Date Type Department Care Team (Late st Contact Info) Description 05/09/2021 Telephone [facility] - COOKING TEACHER [address] [address] Aye Dao MD [address] [place] [address] Nurse Only Social History Tobacco Use [...] Encounter - Marilin Alvarado RN - 05/10/2021 10:10 AM CDT Left voice mail to notify patient of Dr Leonard's message and treatment plan. * Telephone Encounter - Aye Leonard MD - 05/09/2021 12:43 PM CDT Encourage patient to do cold packs (ziplock with frozen peas or corn) to rinse with cool water, anduse the vegetable shortening. If burning continues she can use a vaginal nystatin capsule in the vagina nightly for 5 nights. Script sent to: [facility] [address] [place] [id number] Insurance will not cover but the #30 capsules should cost < $50 * Telephone Encounter - Marilin Alvarado RN - 05/09/2021 12:34 PM CDT Return call to nurse notified her the recent yeast culture was negative Just woke this morning to a little bit of burning Suppository? Nystatin vaginal capsules * Telephone Encounter - Marilin Alvarado RN - 05/09/2021 12:34 PM CDT 04/12/2021 yeast culture No fungal growth at 2 Weeks * Telephone Encounter - Maddy Wild - 05/09/2021 12:01 PM CDT Pt having vaginal burning and need to speak to nurse documented in this encounter Plan of Treatment Upcoming Encounters Date Type Department Care Team (Late st Contact Info) Description 05/24/2025 2:00 PM CDT Office Visit [facility] - COOKING TEACHER [address], [facility] 200 [place] [address] Aye Dao MD [address] [facility] 400 [place] [address] documented as of this encounter Visit Diagnoses Diagnosis History of candidiasis- Primary Personal history of other infectious and parasitic disease documented in this encounter Care Teams Inspector Wire Products Relationship Specialty Start Date End Date Casa Encarnacion MD PCP - General 12/12/15 documented as of this encounter
--- OUTSIDE RECORDS SUMMARY | 2024-09-08 20:40 | XMS_ITS | Encounter Summary ---
Author Organization [facility] Address [address] [facility] [place] [address] Care Team Providers Care Building Supervisor Name Role Phone Casa Encarnacion MD Primary Care Provider [phone] Encounter Details Date Type Department Care Team (Late Contact Info) Description 07/08/2019 Orders Only [facility] Obstetrics Gynecology and Women's Health [address] [facility] 200 [place], [place] [id number] Aye Dao MD [address] [address] Vulvodynia Social History Tobacco Use Types Packs/Day Years [...] Description 05/24/2025 2:00 PM CDT Office Visit [facility] - DIVISION ROADMASTER [address], [facility] 200 [place] [address] Aye Dao MD [address] [facility] 400 [place] [address] documented as of this encounter Visit Diagnoses Diagnosis Vulvodynia documented in this encounter Care Teams Building Supervisor Relationship Specialty Start Date End Date Casa Encarnacion MD PCP - General 12/12/15 documented as of this encounter
--- OUTSIDE RECORDS SUMMARY | 2024-09-08 20:40 | XMS_ITS | Encounter Summary ---
Author Organization [facility] Address [address] [facility] [place] [address] Care Team Providers Care Radial Arm Saw Operator Name Role Phone Casa Encarnacion MD Primary Care Provider [phone] Reason for Visit * Reason Comments Refill Request Encounter Details Date Type Department Care Team (Late Contact Info) Description 06/10/2021 Refill [facility] Obstetrics Gynecology and Women's Health [address] [place] [address] Aye Dao MD [address] [address] Refill Request Social History Tobacco [...] CDT Office Visit [facility] - SENIOR ACCOUNT EXECUTIVE [address], [place] [address] [place] [address] Aye Dao MD [address] [facility] 400 [place] [address] documented as of this encounter Visit Diagnoses Diagnosis Vulvodynia documented in this encounter Care Teams Radial Arm Saw Operator Relationship Specialty Start Date End Date Casa Encarnacion MD PCP - General 12/12/15 documented as of this encounter
--- OUTSIDE RECORDS SUMMARY | 2024-09-08 20:40 | XMS_ITS | Encounter Summary ---
Author Organization [facility] Address [address] [place] [place] [address] Care Team Providers Care Diver Assistant Name Role Phone Casa Encarnacion MD Primary Care Provider [phone] Reason for Visit * Reason Onset Date Comments Encounter Opened In Error 04/13/2021 Encounter Details Date Type Department Care Team (Late st Contact Info) Description 04/13/2021 Telephone [facility] Obstetrics Gynecology and Women's Health [address] [place] [address] Aye Dao MD [address] [facility] 400 [place] [address] Encounter Opened In Error Social [...] encounter Miscellaneous Notes * Telephone Encounter - Natalia Ortiz - 04/13/2021 1:11 PM CDT A user error has taken place: encounter opened in error, closed for administrative reasons. IST ATTENDANT documented in this encounter Plan of Treatment Upcoming Encounters Date Type Department Care Team (Late st Contact Info) Description 05/24/2025 2:00 PM CDT Office Visit [facility] - CUTTING AND SPLICING SUPERVISOR [address], [facility] 200 [place] [address] Aye Dao MD [address] [facility] [address] [place] [address] documented as of this encounter Visit Diagnoses Not on filedocumented in this encounter Care Teams Diver Assistant Relationship Specialty Start Date End Date Casa Encarnacion MD PCP - General 12/12/15 documented as of this encounter
--- OUTSIDE RECORDS SUMMARY | 2024-09-08 20:40 | XMS_ITS | Encounter Summary ---
Author Organization [facility] Address [address] [facility] [place] [address] Care Team Providers Care Ruching Machine Operator Name Role Phone Casa Encarnacion MD Primary Care Provider Reason for Visit * Reason Onset Date Comments Opened In Error 05/03/2020 Encounter Details Date Type Department Care Team (Late Contact Info) Description 05/03/2020 Telephone [facility] Medical [facility] - FORGING PRESS OPERATOR [address] [place] [address] Aye Dao MD [address] [place] [address] Opened In Error Social History Tobacco [...] Upcoming Encounters Date Type Department Care Team ([facility] Contact Info) Description 05/24/2025 2:00 PM CDT Office Visit [facility] - FORGING PRESS OPERATOR [address] [place] [address] 200 [place] [address] Aye Dao MD [address] [place] [address] documented as of this encounter Visit Diagnoses Not on filedocumented in this encounter Care Teams Ruching Machine Operator Relationship Specialty Start Date End Date Casa Encarnacion MD PCP - General 12/12/15 documented as of this encounter
--- OUTSIDE RECORDS SUMMARY | 2024-09-08 20:40 | XMS_ITS | Encounter Summary ---
Author Organization [facility] Address [facility] [place] [address] Care Team Providers Care It Admin Name Role Phone Casa Encarnacion MD Primary Care Provider [phone] Reason for Visit * Reason Onset Date Comments Treatment 04/11/2021 Encounter Details Date Type Department Care Team (Late st Contact Info) Description 04/11/2021 Telephone [facility] - MASON TENDER RESTORATION LABOR [address] [address] Aye Dao MD [address] [place] [address] Treatment Social History Tobacco Use Types Packs/Day Years [...] Telephone Encounter - Iris Lundy LPN - 04/11/2021 9:47 AM CDT The patient is wondering if she can have the testing done at her local hospital ? If so what do we need ? I explained - she can see her local VARNISH MAKER HELPER we need a yeast culture and sensitivity. But she has an appt with Dr. Fisher tomorrow. She is not sure they can make it ? I asked why ? This and that . I explained I talked with her daughter yesterday - at the same time I talked with her . I gave her daughter all the information on the appt, date , time and address to the local. She seemed happy about the appt . Understood - we need the testing as the medication she is getting may not help her yeast at all. Patient voiced understanding , will keep her appt tomorrow. * Telephone Encounter - Tobias Ortiz - 04/11/2021 8:07 AM CDT Pt would like a call from a Nurse due to vaginal burning please call, thank you. documented in this encounter Plan of Treatment Upcoming Encounters Date Type Department Care Team (Late st Contact Info) Description 05/24/2025 2:00 PM CDT Office Visit [facility] - MASON TENDER RESTORATION LABOR [address] [facility] 200 [place] [address] Aye Dao MD [address] [facility] 400 [place] [address] documented as of this encounter Visit Diagnoses Not on filedocumented in this encounter Care Teams It Admin Relationship Specialty Start Date End Date Casa Encarnacion MD PCP - General 12/12/15 documented as of this encounter
--- OUTSIDE RECORDS SUMMARY | 2024-09-08 20:40 | XMS_ITS | Encounter Summary ---
Author Organization [facility] Address [address] [facility] [place] [address] Care Team Providers Care Film And Video Graphics Designer Name Role Phone Casa Encarnacion MD Primary Care Provider Reason for Visit * Reason Onset Date Comments Order 05/25/2019 Urine Check 05/25/2019 Encounter Details Date Type Department Care Team (Late st Contact Info) Description 05/25/2019 Telephone [facility] Gynecology and Women's Health [address] [place] [address] Aye Dao MD [address] [address] Order; Urine Check Social History Tobacco Use Types Packs/Day Years [...] encounter Miscellaneous Notes * Telephone Encounter - Irsi Lundy LPN - 05/25/2019 10:16 AM CDT Feels a little better Both the burning and frequency are some better. Brother recently . Had a stroke during the night - with in a week. I gave her our sympathies. She will try to go to the lab tomorrow. We will call her the results - no matter what All are in agreement * Telephone Encounter - Ese Romero - 05/25/2019 9:57 AM CDT Patient called and she said that she needs to give another specimen. She needs an order to get her urine tested. To send the order fax to: [phone] ([facility]) Please call the patient once completed. Call back # [phone] documented in this encounter Plan of Treatment Upcoming Encounters Date Type Department Care Team (Late st Contact Info) Description 05/24/2025 2:00 PM CDT Office Visit [facility] - CALL WORKER [address], [facility] 200 [place] [address] Aye Dao MD [address] [place] [address] [place] [address] documented as of this encounter Procedures Procedure Name Priority Date/Time Associated Diagnosis Comments CULTURE URINE Routine 05/25/2019 11:13 AM CDT Acute cystitis without hematuria documented in this encounter Results * (ABNORMAL) CULTURE URINE (05/25/2019 11:13 AM CDT) Culture (A) [facility] Comment: ??CULTURE, URINE, ROUTINE ?MICRO NUMBER: ?[id number] ??TEST STATUS: ? FINAL ??SPECIMEN SOURCE: ?? [...] cefuroxime, cephalexin ?and loracarbef. Test Performed at: [facility] ??[id number] ZORAIDA TYLER MD Urine URINE SPECIMEN OBTAINED BY CLEAN CATCH PROCEDURE / Unknown 05/25/2019 11:13 AM CDT 05/25/2019 11:14 AM CDT Aye Dao MD LAB - MICROBIOLOGY ORDERABLES Performing Organization Address City/State/[facility] Co de Phone Number [employer] [address] [place] [address] documented in this encounter Visit Diagnoses Diagnosis Acute cystitis without hematuria- Primary Acute cystitis documented in this encounter Care Teams Film And Video Graphics Designer Relationship Specialty Start Date End Date Casa Encarnacion MD PCP - General 12/12/15 documented as of this encounter
--- OUTSIDE RECORDS SUMMARY | 2024-09-08 20:40 | XMS_ITS | Encounter Summary ---
Author Organization [facility] Address [address] [facility] [place] [address] Care Team Providers Care Application Tester Name Role Phone Casa Encarnacion MD Primary Care Provider [phone] Reason for Visit * Reason Onset Date Comments Nurse Only 06/05/2021 Encounter Details Date Type Department Care Team (Late st Contact Info) Description 06/05/2021 Telephone [facility] Obst[facility]s Gynecology and Women's Health [address] [facility] [address] [place] [address] Aye Dao MD [address] [facility] [place] [address] [place] [address] Nurse Only Social History Tobacco [...] Telephone Encounter - Iris Lundy LPN - 06/05/2021 10:02 AM CDT I spoke with the patient. She had a UTI was given an antibiotic . It is gone. She has also been given diflucan - she has been taking it for about 5 days now. Said it just isn't working. Wonders what we can do ? She is not sure the nystatin vaginal tabs work for her. She has not tried anything cool to her bottom. Denies discharge and itching, just has burning. I explained the burning may not be yeast The gabapentin is to help with that and the cool packs . She has been taking the gabapentin faithfully as directed . I explained I am not sure she needs the diflucan - we gave her the vaginal tablets instead. She will call the other office. Tell them the diflucan is not helping and she would like to use our treatment . See if they are ok with that . Then do it. Patient voiced understanding , will do that and also use the cool packs today. * Telephone Encounter - Kesha Mora - 06/05/2021 8:26 AM CDT Pt is wanting to speak with a nurse about some vaginal burning she is experiencing. CB# [phone] documented in this encounter Plan of Treatment Upcoming Encounters Date Type Department Care Team (Late st Contact Info) Description 05/24/2025 2:00 PM CDT Office Visit [facility] - PUSHCART PEDDLER [address], [facility] 200 [place] [address] Aye Dao MD [address] [place] [address] [place] [address] documented as of this encounter Visit Diagnoses Not on filedocumented in this encounter Care Teams Application Tester Relationship Specialty Start Date End Date Casa Encarnacion MD PCP - General 12/12/15 documented as of this encounter
--- OUTSIDE RECORDS SUMMARY | 2024-09-08 20:40 | XMS_ITS | Encounter Summary ---
Author Organization [facility] Address [facility] [place] [address] Care Team Providers Care Cooling Pan Tender Name Role Phone Casa Encarnacion MD Primary Care Provider [phone] Reason for Visit * Reason Onset Date Comments Medication Issue 04/11/2020 Encounter Details Date Type Department Care Team (Late st Contact Info) Description 04/11/2020 Telephone [facility] - PRESSURE WASHER [address] [address] Aye Dao MD [address] [place] [address] Medication Issue Social History Tobacco Use [...] Telephone Encounter - Iris Lundy LPN - 04/11/2020 3:00 PM CDT I spoke with the patient - she has been doing pretty good. Is wanting to be sure we are still seeing patients. I told her yes, she will need to wear a mask and can bring one person with her only. She appt was originally for next week but has been bumped. She did not know know that . Is glad she called. I gave her the new appt date and time She voiced understanding , wrote it down and will try to make it then. All are in agreement * Telephone Encounter - Bhumika Rojas - 04/11/2020 2:16 PM CDT PT would like a callback.She is having issue with her medication. [phone] documented in this encounter Plan of Treatment Upcoming Encounters Date Type Department Care Team (Late st Contact Info) Description 05/24/2025 2:00 PM CDT Office Visit [facility] - PRESSURE WASHER [address], [facility] 200 [place] [address] Aye Dao MD [address] [place] [address] [place] [address] documented as of this encounter Visit Diagnoses Not on filedocumented in this encounter Care Teams Cooling Pan Tender Relationship Specialty Start Date End Date Casa Encarnacion MD PCP - General 12/12/15 documented as of this encounter
--- OUTSIDE RECORDS SUMMARY | 2024-09-08 20:40 | XMS_ITS | Encounter Summary ---
Author Organization [facility] Address [facility]3 [place] [address] Care Team Providers Care Db2 Systems Programmer Name Role Phone Casa Encarnacion MD Primary Care Provider [phone] Reason for Visit * Reason Onset Date Comments Medication Problem 06/12/2021 Encounter Details Date Type Department Care Team (Late st Contact Info) Description 06/12/2021 Telephone [facility] - ELECTROMEDICAL EQUIPMENT TECHNICIAN [address] [address] Aye Dao MD [address] [place] [address] Medication Problem Social History Tobacco Use Types Packs/Day [...] Telephone Encounter - Marilin Alvarado RN - 06/12/2021 11:51 AM CDT Return call to patient [phone] Voice mail Left message If it is the colace (docusate sodium) she is calling about, that is from her PCP and she needs to contact that doctor's office. Dr Leonard prescribes the nystatin capsules for vagina to fight yeast * Telephone Encounter - Tobias Ortiz - 06/12/2021 11:39 AM CDT Pt called to report medication; docusate sodium (COLACE) 100 MG capsule, is not working. Pt would like a call from a Nurse please and thank you. documented in this encounter Plan of Treatment Upcoming Encounters Date Type Department Care Team (Late st Contact Info) Description 05/24/2025 2:00 PM CDT Office Visit [facility] - ELECTROMEDICAL EQUIPMENT TECHNICIAN 1031 [facility] 200 [place] [address] Aye Dao MD 1031 [facility] 400 [place] [address] documented as of this encounter Visit Diagnoses Not on filedocumented in this encounter Care Teams Db2 Systems Programmer Relationship Specialty Start Date End Date Casa Encarnacion MD PCP - General 12/12/15 documented as of this encounter
--- OUTSIDE RECORDS SUMMARY | 2024-09-08 20:41 | XMS_ITS | Encounter Summary ---
Author Organization [facility] Health Address [address] [place] [address] Care Team Providers Care Platform Power Technician Name Role Phone Casa Encarnacion MD Primary Care Provider [phone] Reason for Visit * Reason Comments Refill Request Encounter Details Date Type Department Care Team (Late st Contact Info) Description 12/31/2018 Refill [facility] [address] [place], [place] [id number] Aye Dao MD [address] [facility] [address] [place] [address] Refill Request Social History Tobacco [...] Telephone Encounter - Marilin Alvarado RN - 12/31/2018 4:16 PM CDT Refill request received from pharmacy for Diflucan 200 for this patient Last filled 10/21/18 with 1 refill added to that script today's refill denied If patient still has the additional refill from that script she can fill that. documented in this encounter Plan of Treatment Upcoming Encounters Date Type Department Care Team (Late st Contact Info) Description 05/24/2025 2:00 PM CDT Office Visit [facility] - FISH HATCHERY SPECIALIST [address], [facility] [address] [place] [address] Aye Dao MD [address] [facility] [address] [place] [address] documented as of this encounter Visit Diagnoses Not on filedocumented in this encounter Care Teams Platform Power Technician Relationship Specialty Start Date End Date Casa Encarnacion MD PCP - General 12/12/15 documented as of this encounter
--- OUTSIDE RECORDS SUMMARY | 2024-09-08 20:41 | XMS_ITS | Encounter Summary ---
Author Organization [facility] Health Address [address] [facility] [address] Care Team Providers Care Business Planning Manager Name Role Phone Casa Encarnacion MD Primary Care Provider [phone] Reason for Visit * Reason Onset Date Comments Pain Vaginal 10/26/2018 Encounter Details Date Type Department Care Team (Late st Contact Info) Description 10/26/2018 Telephone [facility] [address] [place] [id number] Aye Dao MD [address] [address] Pain Vaginal Social History Tobacco Use Types Packs/Day [...] Telephone Encounter - Marilin Alvarado RN - 10/26/2018 11:48 AM AUDIO VISUAL ARTS DIRECTOR Return call to patient Took the diflucan as instructed Not helping her like it used to Describes a vaginal pain that lingers Finished the antibiotic and the diflucan yesterday Still has pressure Plan: Offered for patient to see Dr Leonard Wed 10/28 at 10:50 am [phone] If she is feeling better or if her daughter can't bring her, cancel that visit and instead she Willcheck urine through [facility] (order placed) O VISUAL ARTS DIRECTOR * Telephone Encounter - Celena Joel - 10/26/2018 10:09 AM CST Pt called in complaining of vaginal burning and would like to speak to the nurse. Pt callback#[phone] O VISUAL ARTS DIRECTOR documented in this encounter Plan of Treatment Upcoming Encounters Date Type Department Care Team (Late st Contact Info) Description 05/24/2025 2:00 PM CDT Office Visit [facility] - TELEMETRY MONITOR [address], [facility] [address] [place] [address] Aye Dao MD [address] [facility] [address] [place] [id number] Scheduled Orders Name Type Priority Associated Diagnoses Orde r Schedule CULTURE URINE Microbiology Routine Acute cystitis without hematuria Ordered: 10/26/2018 documented as of this encounter Visit Diagnoses Diagnosis Acute cystitis without hematuria- Primary Acute cystitis documented in this encounter Care Teams Business Planning Manager Relationship Specialty Start Date End Date Casa Encarnacion MD PCP - General 12/12/15 documented as of this encounter
--- OUTSIDE RECORDS SUMMARY | 2024-09-08 20:41 | XMS_ITS | Encounter Summary ---
Author Organization [facility] Health Address [address] [facility] [facility] [place] [address] Care Team Providers Care Bakery Demonstrator Name Role Phone Casa Encarnacion MD Primary Care Provider [phone] Reason for Visit * Reason Comments Refill Request Encounter Details Date Type Department Care Team (Late st Contact Info) Description 03/05/2018 Refill [facility] [address] [place] [id number] Aye Dao MD [address] [address] Refill Request Social History Tobacco [...] Telephone Encounter - Iris Lundy LPN - 03/12/2018 11:24 AM CDT Patient has an appt in may. One 90 day refill sent documented in this encounter Plan of Treatment Upcoming Encounters Date Type Department Care Team (Late st Contact Info) Description 05/24/2025 2:00 PM CDT Office Visit [facility] - TUYERE FITTER [address], [facility] [address] [place] [address] Aye Dao MD [address] [facility] [address] [place] [address] documented as of this encounter Visit Diagnoses Not on filedocumented in this encounter Care Teams Bakery Demonstrator Relationship Specialty Start Date End Date Casa Encarnacion MD PCP - General 12/12/15 documented as of this encounter
--- OUTSIDE RECORDS SUMMARY | 2024-09-08 20:41 | XMS_ITS | Encounter Summary ---
Author Organization [facility] Health Address [address] [facility] [place] [address] Care Team Providers Care Test Car Driver Name Role Phone Casa Encarnacion MD Primary Care Provider [phone] Reason for Visit * Reason Onset Date Comments Question 01/16/2018 Encounter Details Date Type Department Care Team (Late st Contact Info) Description 01/16/2018 Telephone [facility] [address] [place] [address] Aye Dao MD [address] [address] Question Social History Tobacco Use [...] encounter Miscellaneous Notes * Telephone Encounter - Alejandra Morillo RN - 01/16/2018 3:43 PM CDT RTC to pt. She states she has been having vaginal burning and some white discharge, she is asking if we could send diflucan to her pharamcy. [facility] in [place], [place]. Will send to Dr. Zhao for review. * Telephone Encounter - Luisana Robb - 01/16/2018 2:32 PM CDT PT CALLED IN STATING SHE WOULD LIKE TO KNOW IF SHE CAN GET A SCRIPT FOR DIFLUCAN. PT STATES SHE HASBURNING. CALLBACK# [phone] documented in this encounter Plan of Treatment Upcoming Encounters Date Type Department Care Team (Late st Contact Info) Description 05/24/2025 2:00 PM CDT Office Visit [facility] - MEAT TEAM LEAD [address] [facility] [address] [place] [address] Aye Dao MD [address] [facility] [address] [place] [address] documented as of this encounter Visit Diagnoses Diagnosis Vaginal itching- Primary Pruritus of genital organs documented in this encounter Care Teams Test Car Driver Relationship Specialty Start Date End Date Casa Encarnacion MD PCP - General 12/12/15 documented as of this encounter
--- OUTSIDE RECORDS SUMMARY | 2024-09-08 20:41 | XMS_ITS | Encounter Summary ---
Author Organization [facility] Health Address [address] [facility] [place] [address] Care Team Providers Care Chip Loft Worker Name Role Phone Casa Encarnacion MD Primary Care Provider [phone] Reason for Visit * Reason Comments Follow-up Encounter Details Date Type Department Care Team (Late st Contact Info) Description 05/20/2018 10:10 AM CDT Office Visit [facility] [address] [facility] [address] [place] [address] Aye Dao MD [address] [facility] [address] [place] [address] Vulvodynia (Primary Dx); History of [...] Sign Reading Time Taken Comments Blood Pressure 126/88 05/20/2018 10:15 AM CDT Pulse - - Temperature - - Respiratory Rate - - Oxygen Saturation - - Inhaled Oxygen Concentration - - Weight 61.7 kg (136 lb) 05/20/2018 10:15 AM CDT Height 168.9 cm (5' 6.5 ) 05/20/2018 10:15 AM CD T Body Mass Index 21.62 05/20/2018 10:15 AM CDT documented in this encounter Patient Instructions * Patient Instructions* Aye Zhao MD - 05/20/2018 10:30 AM CDT Continue with the gabapentin 300 mg three times a day When you finish the Cipro take the Diflucan 200 mg tablet, one by mouth every other day for three doses. documented in this encounter Progress Notes * Aye Zhao MD - 05/20/2018 10:25 AM CDT [facility] Return Visit Date: 05/20/2018 Allergies: Allergies Allergen Reactions ??? Seasonal Other Sneezing VS: BP 126/88 Ht 5' 6.5 Wt 136 lb BMI 21.62 kg/m2 Treatment(s): gabapentin Status: stable Subjective: Doing ok, tolerating the gabapentin 300 mg TID, feels this has helped. Was seen by PMD and diagnosised with UTI and is currently on Cipro. Symptoms: (None=0; 10=Severe) Dyspareunia: Entry:not active Burning after intercourse:n/a Vaginal discharge: 0 Vulvar burnin-5 Vulvar itchin Clitoral pain: 0 Vulvar pain: 0 Urinary symptoms: 0 Correct product use: VCG followed on all aspects: Good compliance Vulvar Examination: Normal anatomy. No pain with palpation Cultures collected: None Biopsy: Impression/Plan: 1. Vulvodynia Continue with the gabapentin 300 mg TID Continue the Vulvar Care Guidelines 2. UTI- on Cipro, will give Diflucan 200 mg tablet, one by mouth every other day for three doses totake after Cipro 3. F/U in 6 months Time of visit: 20 minutes. Significant [...] CDT Office Visit [facility] - YARD CONDUCTOR [address], [facility] [address] [place] [address] Aye Dao MD [address] [facility] [address] [place] [address] documented as of this encounter Visit Diagnoses Diagnosis Vulvodynia- Primary History of candidiasis Personal history of other infectious and parasitic disease documented in this encounter Care Teams Chip Loft Worker Relationship Specialty Start Date End Date Casa Encarnacion MD PCP - General 12/12/15 documented as of this encounter
--- OUTSIDE RECORDS SUMMARY | 2024-09-08 20:41 | XMS_ITS | Encounter Summary ---
Author Organization [facility] Health Address [address] [facility] [place] [address] Care Team Providers Care Overseamer Name Role Phone Casa Encarnacion MD Primary Care Provider [phone] Reason for Visit * Reason Comments Refill Request Encounter Details Date Type Department Care Team (Late Contact Info) Description 10/05/2018 Refill [facility] [address] [place] [address] Aye Dao MD [address] [facility] [address] [place] [address] Refill Request Social History Tobacco [...] Description 05/24/2025 2:00 PM CDT Office Visit [facility] - DIVISION SERGEANT [address], [address] [place] [address] Aye Dao MD [address] [facility] [address] [place] [address] documented as of this encounter Visit Diagnoses Not on filedocumented in this encounter Care Teams Overseamer Relationship Specialty Start Date End Date Casa Encarnacion MD PCP - General 12/12/15 documented as of this encounter
--- OUTSIDE RECORDS SUMMARY | 2024-09-08 20:41 | XMS_ITS | Encounter Summary ---
Author Organization [facility] Health Address [address] [facility] [place] [address] Care Team Providers Care Director Of Automation Name Role Phone Casa Encarnacion MD Primary Care Provider [phone] Reason for Visit * Reason Comments Establish Care Encounter Details Date Type Department Care Team (Late st Contact Info) Description 10/28/2018 10:50 AM GENERAL PRACTICE Office [facility] [address] [facility] [address] [place] [address] Aye Dao MD [address] [facility] [address] [place] [address] Bladder pain (Primary Dx) Social History Tobacco Use Types [...] Sign Reading Time Taken Comments Blood Pressure 124/78 10/28/2018 11:00 AM GENERAL PRACTICE Pulse - - Temperature - - Respiratory Rate - - Oxygen Saturation - - Inhaled Oxygen Concentration - - Weight 61.5 kg (135 lb 9.6 oz) 10/28/2018 11:00 AM GENERAL PRACTICE Height 168.9 cm (5' 6.5 ) 10/28/2018 11:00 AM CS T Body Mass Index 21.56 10/28/2018 11:00 AM GENERAL PRACTICE documented in this encounter Progress Notes * Aye Zhao MD - 10/28/2018 11:59 AM CST [facility] Return Visit Date: 10/28/2018 Allergies: Allergies Allergen Reactions ??? Seasonal Other Sneezing VS: BP 124/78 Ht 5' 6.5 Wt 135 lb 9.6 oz BMI 21.56 kg/m2 Treatment(s): gabapentin Status: stable Subjective: Was just seen last week and urine culture was positive and treated with ampicillin 500 mg twice daily and a course of Diflucan 200 mg tablet, one by mouth every other day for three doses.Is feeling better but concerned about some persistent burning. Symptoms: (None=0; 10=Severe) Dyspareunia: Entry:not active Burning after intercourse:n/a Vaginal discharge: 0 Vulvar burnin can be 0 Vulvar itchin Clitoral pain: 0 Vulvar pain: 0 Urinary symptoms: 0 Correct product use: VCG followed on all aspects: Good compliance Vulvar Examination: Normal anatomy. No pain with palpation. Urethra is slightly tender and lundberg with q-tip touch Cultures collected: Urine Biopsy: Impression/Plan: 1. Recurrent bladder infections Will check culture today. D/W daughter that this culture is negative, but still with burning next week, we will need to checkanother urine culture at that time. Will refer to urogyn for recurrent bladder infections. 2. F/U in 6 months Time of visit: 20 minutes. Significant portion (>50%) of time was spent face to face in counseling the patient about vulvodynia and discussing the treatment plan as outlined in the instructions. All questions were answered to her satisfaction. RAL PRACTICE documented in this encounter Plan of Treatment Upcoming Encounters Date Type Department Care Team (Late st Contact Info) Description 05/24/2025 2:00 PM CDT Office Visit [facility] - CERTIFIED WELDING INSPECTOR [address], [address] [place] [address] Aye Dao MD [address] [place] [address] documented as of this encounter Procedures Procedure Name Priority Date/Time Associated Diagnosis Comments CULTURE URINE Routine 10/28/2018 11:01 AM GENERAL PRACTICE Bladder pain documented in this encounter Results * CULTURE URINE (10/28/2018 11:01 AM GENERAL PRACTICE) Culture [facility] Comment: ??CULTURE, URINE, ROUTINE ?MICRO NUMBER: ?[id number] ??TEST STATUS: ? FINAL ??SPECIMEN SOURCE: ?? URINE CLEAN ??SPECIMEN QUALITY: ??ADEQUATE ??RESULT: ?Single organism less than 10,000 CFU/mL isolated. ? These organisms, commonly found on external and ? internal genitalia, are considered colonizers. ? No further testing performed. Test Performed at: [facility] ??[id number] ZORAIDA TYLER MD Urine URINE SPECIMEN OBTAINED BY CLEAN CATCH PROCEDURE / Unknown 10/28/2018 11:01 AM GENERAL PRACTICE 10/29/2018 12:11 AM GENERAL PRACTICE Aye Dao MD LAB - MICROBIOLOGY ORDERABLES [address] [address] documented in this encounter Visit Diagnoses Diagnosis Bladder pain- Primary Other symptoms involving urinary system documented in this encounter Care Teams Director Of Automation Relationship Specialty Start Date End Date Casa Encarnacion MD PCP - General 12/12/15 documented as of this encounter
--- OUTSIDE RECORDS SUMMARY | 2024-09-08 20:41 | XMS_ITS | Encounter Summary ---
Author Organization [facility] Address [address] [place] [address]. [place] [address] [place] [address] Care Team Providers Care Independent Living Specialist Name Role Phone Casa Encarnacion MD Primary Care Provider [phone] Reason for Visit * Auth/Cert Specialty Diagnoses / Procedures Referred By Rosalva t Referred To Contact Diagnoses h25.9 Procedures REMV CATARACT EXTRACAP,INSERT LENS EXTRACTION CATARACT left EYE WITH LENS IMPLANT Referral ID Status Reason Start Date Expiration Date Visits Re quested Visits Authorized [id number] 1 1 Encounter Details Date Type Department Care Team (Latest Contact Info) Description 01/21/2024 9:52 AM CDT - 01/21/2024 11:20 AM CDT Hospital Encounter [place] [address] [place] [address] Catherine Newman MD [address], [place] [id number] Discharge Disposition: Home or Self Care (Routine Discharge) Social History Tobacco Use Types Packs/Day Years Used Date Smoking Tobacco: Never Smokeless Tobacco: Never Alcohol Use Standard Drinks/Week Comments No 0 (1 standard drink = 0.6 oz pur e alcohol) AUDIT-C Answer Date Recorded Frequency of Alcohol Consumption Never 06/30/2019 Average Number of Drinks Not on file 019 Frequency of Binge Drinking Not on file 06/09 Overall Financial Resource Strain (CARDIA) Answe r Date Recorded Difficulty of Paying Living Expenses Not hard at all 01/26/2020 Hunger Vital Sign Answer Date Recorded Worried About Running Out of Food in the Last Ye ar Never true 01/26/2020 Ran Out of Food in the Last Year Never true 01/26/2020 Comments No Sex and Gender Information Value Date Recorded Sex Assigned at Not on file Legal Sex Female 11:02 PM CDT Gender Identity Not on file Sexual Orientation Not on file documented as of this encounter Last Filed Vital Signs Vital Sign Reading Time Taken Comments Blood Pressure 164/98 01/21/2024 10:50 AM CDT Pulse 62 01/21/2024 10:50 AM CDT Temperature 36.1 ??C (97 ??F) 01/21/2024 10:50 AM CDT Respiratory Rate 16 01/21/2024 10:50 AM CDT Oxygen Saturation 96% 01/21/2024 10:50 AM CDT Inhaled Oxygen Concentration - - Weight 63.5 kg (140 lb) 01/15/2024 10:26 AM CDT Height 167.6 cm (5' 6 ) 01/15/2024 10:26 AM CDT Body Mass Index 22.6 01/15/2024 10:26 AM CDT documented in this encounter Functional Status * RETIRED Are you deaf or do you have serious difficulty hearing Answer Date of Assessment Author Status No 01/26/2020 5:15 PM CDT Acti ve * RETIRED Are you blind or do you have serious difficulty seeing, even when wearing glasses? Answer Date of Assessment Author Status No 01/26/2020 5:15 PM CDT Activ e * Do you have serious difficulty walking or climbing stairs? Answer Date of Assessment Author Status No 01/26/2020 5:15 PM CDT Unique Mejia RN Active * Do you have difficulty dressing or bathing? Answer Date of Assessment Author Status No 01/26/2020 5:15 PM CDT Unique Mejia RN Active * Because of a physical, mental, or emotional condition, do you have difficulty doing errands alone such as visiting a doctor's office or shopping? Answer Date of Assessment Author Status No 01/26/2020 5:15 PM CDT Unique Mejia RN Active documented as of this encounter Mental Status * Because of a physical, mental, or emotional condition, do you have serious difficulty concentrating, remembering, or making decisions? Answer Entry Date Author Status No 01/26/2020 5:15 PM CDT Unique Mejia RN Active documented in this encounter Discharge Instructions * Discharge Instructions* Mamta Guido RN - 01/21/2024 10:43 AM CDT Due to the sedation you received today, (for 24 hours) please do not: -Sign any legal documents or make any important decisions -Drink alcohol or take medication intended to make you sleep -Drive a car or operate any hazardous machinery * Attachments The following attachments cannot be sent through Care Everywhere. * Cataract Removal Discharge Instructions ([facility]) * Moderate Sedation in Adults Discharge Instructions ([facility]) documented in this encounter Medications at Time of Discharge acetaminophen 500 MG tablet Take 1 tablet (500 mg total) by mouth every 4 (four) hours as needed for Pain. aspirin 81 MG chewable tablet Chew 1 tablet (81 mg total) by mouth daily. 30 tablet 01/29/2020 atorvastatin 40 MG tablet Take 1 tablet (40 mg total) by mouth nightly at bedtime. 30 tablet 01/28/2020 bismuth subsalicylate 525 MG/15ML Suspension suspension Take 30 mLs by mouth every 6 (six) hours as needed for Indigestion. cetirizine 10 MG tablet Take 1 tablet (10 mg total) by mouth as needed for Allergies. chlordiazepoxide 5 MG capsule Take 1 capsule (5 mg total) by mouth 3 (three) times daily as needed for Anxiety. 06/16/2009 ciprofloxacin (CIPRO) 250 MG tablet 01/20/2024 cranberry 450 MG Tab tablet Take 1 tablet (450 mg total) by mouth daily. docusate sodium 100 MG capsule Take 1 capsule (100 mg total) by mouth 2 (two) times daily as needed for Constipation. gabapentin 300 MG capsule One capsule by mouth at breakfast and lunch, two capsules at bedtime 10/13/2018 lisinopril 2.5 MG tablet Take 1 tablet (2.5 mg total) by mouth daily. 30 tablet 01/28/2020 loperamide 2 MG capsule Take 1 capsule (2 mg total) by mouth 4 (four) times daily as needed for Diarrhea. metoprolol tartrate 25 MG tablet Take 1 tablet (25 mg total) by mouth 2 (two) times a day. 08/20/2017 mirtazapine 30 MG tablet Take 0.5 tablets (15 mg total) by mouth nightly at bedtime. 09/30/2014 vitamin B-12 (CYANOCOBALAMIN) 1000 mcg tablet Take 1 tablet (1,000 mcg total) by mouth daily. documented as of this encounter H&P Notes * Catherine Newman MD - 01/21/2024 10:09 AM CDT HISTORY AND PHYSICAL INTERVAL NOTE: I have reviewed Luanne Gotti History & Physical which was performed within the past 30 days. After examining Luanne Gotti, no change has occurred in the patient's condition since the H&P was completed. Informed Consent Discussion: Potential benefits, risks, and side effects of the patient's procedure/surgery; the likelihood of the patient achieving his or her goals; and any potential problems that might occur during recuperation were discussed with the patient/family/personal insurance account representative. Reasonable alternatives to the patient's proposed procedure/surgery including benefits, risks, and side effects related to the alternatives and the risks related to not receiving the proposed care were also discussed with the patient/family/personal insurance account representative. Questions were answered and the patient/family/personal insurance account representative verbalized understanding and desires to proceed. Source Note - Scanned, [facility] - 01/21/2024 12:00 AM CDT documented in this encounter OR Notes * Brief Op Note - Catherine Newman MD - 01/21/2024 10:48 AM CDT Patient: Luanne Gotti 1935 [id number] Preoperative Diagnosis: Visually significant cataract Postoperative Diagnosis: Visually significant cataract Procedure: Cataract Extraction with Intraocular Lens Placement, LEFT Eye Surgeon: Catherine Newman MD Mortuary Beautician: none Anesthesia: Monitor Anesthesia Care Implant: Implant Name Type Inv. Item Serial No. Research Methods Instructor Lot No. LRB No. Used Action IOL TECNIS SIMPLICITY DCB00 - [id number] Lens IOL TECNIS SIMPLICITY DCB00 [id number] [employer] CARE DCB00 Left 1 Implanted Specimen: none Estimated Blood Loss: minimal Procedure in detail: Please see full operative note for details. Disposition: Patient was taken to the recovery in stable condition. Catherine Newman MD 01/21/2024 10:48 AM documented in this encounter Plan of Treatment Not on file documented as of this encounter Procedures Procedure Name Priority Date/Time Associated Diagnosis Comments REMV CATARACT EXTRACAP,INSERT LENS 01/21/2024 10:23 AM CDT h25.9 documented in this encounter Visit Diagnoses Not on filedocumented in this encounter Administered Medications Inactive Administered Medications - up to 3 most recent administrations Medication Order MAR Action Action Date Dose Rate Site acetaZOLAMIDE ER (DIAMOX) 12 hr capsule 500 mg 500 mg, Oral, Once, 1 dose, On Fri01/21/24 at 1100, Swallow capsule whole or it may be opened and the contents sprinkled on applesauce., Post-Op Given 01/21/2024 11:00 AM CDT 500 mg acetaZOLAMIDE ER (DIAMOX) 500 MG 12 hr capsule 1 dose, Starting on Fri01/21/24 at 1058, Until Fri01/21/24 at 1100, Created by cabinet override Swallow capsule whole or it may be opened and the contents sprinkled on applesauce. lactated ringers infusion at 10 mL/hr, Intravenous, Continuous, Starting on Fri01/21/24 at 1030, Until Fri01/21/24 at 1335, Infuse at TKO rate, Pre-Op New Bag 01/21/2024 10:56 AM CDT 10 mL/hr Restarted 01/21/2024 10:29 AM CDT New Bag 01/21/2024 10:22 AM CDT 10 mL/hr moxifloxacin (VIGAMOX) 0.5 % ophthalmic solution 1 drop 1 drop, Left Eye, Every 10 min, 2 doses, First dose on Fri01/21/24 at 1030, Last dose on Fri01/21/24 at 1040, Instill in operative eye, Pre-Op Given 01/21/2024 10:16 AM CDT 1 drop Given 01/21/2024 10:08 AM CDT 1 drop moxifloxacin (VIGAMOX) 0.5 % ophthalmic solution 1 dose, Starting on Fri01/21/24 at 1002, Until Fri01/21/24 at 1008, Created by cabinet override phenylephrine (MYDFRIN) 2.5 % ophthalmic solution 1 drop 1 drop, Left Eye, Every 10 min, 2 doses, First dose on Fri01/21/24 at 1030, Last dose on Fri01/21/24 at 1040, Instill in operative eye, Pre-Op Given 01/21/2024 10:16 AM CDT 1 drop Given 01/21/2024 10:08 AM CDT 1 drop phenylephrine (MYDFRIN) 2.5 % ophthalmic solution 1 dose, Starting on Fri01/21/24 at 1002, Until Fri01/21/24 at 1008, Created by cabinet override proparacaine (ALCAINE) 0.5 % ophthalmic solution 1 drop 1 drop, Left Eye, Every 10 min, 2 doses, First dose on Fri01/21/24 at 1030, Last dose on Fri01/21/24 at 1040, In operative eye, Pre-Op Given 01/21/2024 10:16 AM CDT 1 drop Given 01/21/2024 10:08 AM CDT 1 drop proparacaine (ALCAINE) 0.5 % ophthalmic solution 1 dose, Starting on Fri01/21/24 at 1002, Until Fri01/21/24 at 1008, Created by cabinet override tropicamide (MYDRIACYL) 1 % ophthalmic solution 1 drop 1 drop, Left Eye, Every 10 min, 2 doses, First dose on Fri01/21/24 at 1030, Last dose on Fri01/21/24 at 1040, Instill in operative eye, Pre-Op Given 01/21/2024 10:16 AM CDT 1 drop Given 01/21/2024 10:08 AM CDT 1 drop tropicamide (MYDRIACYL) 1 % ophthalmic solution 1 dose, Starting on Fri01/21/24 at 1002, Until Fri01/21/24 at 1008, Created by cabinet override documented in this encounter Active and Recently Administered Medications Times are shown in CDT. Scheduled Medication Order 01/19/2024 01/20/2024 01/21/2024 acetaZOLAMIDE ER (DIAMOX) 12 hr capsule 500 mg (COMPLETED) 500 mg, Oral, Once, 1 dose, On Fri01/21/24 at 1100, Swallow capsule whole or it may be opened and the contents sprinkled on applesauce., Post-Op 1100 (Given - Provid er: Mamta Guido RN) moxifloxacin (VIGAMOX) 0.5 % ophthalmic solution 1 drop (COMPLETED) 1 drop, Left Eye, Every 10 min, 2 doses, First dose on Fri01/21/24 at 1030, Last dose on Fri01/21/24 at 1040, Instill in operative eye, Pre-Op 1008 (Given - Provid er: Desiree Dempsey RN)1016 (Given - Provider: Desiree Dempsey RN) phenylephrine (MYDFRIN) 2.5 % ophthalmic solution 1 drop (COMPLETED) 1 drop, Left Eye, Every 10 min, 2 doses, First dose on Fri01/21/24 at 1030, Last dose on Fri01/21/24 at 1040, Instill in operative eye, Pre-Op 1008 (Given - Provid er: Desiree Dempsey RN)1016 (Given - Provider: Desiree Dempsey RN) proparacaine (ALCAINE) 0.5 % ophthalmic solution 1 drop (COMPLETED) 1 drop, Left Eye, Every 10 min, 2 doses, First dose on Fri01/21/24 at 1030, Last dose on Fri01/21/24 at 1040, In operative eye, Pre-Op 1008 (Given - Provid er: Desiree Dempsey RN)1016 (Given - Provider: Desiree Dempsey RN) tropicamide (MYDRIACYL) 1 % ophthalmic solution 1 drop (COMPLETED) 1 drop, Left Eye, Every 10 min, 2 doses, First dose on Fri01/21/24 at 1030, Last dose on Fri01/21/24 at 1040, Instill in operative eye, Pre-Op 1008 (Given - Provid er: Desiree Dempsey RN)1016 (Given - Provider: Desiree Dempsey RN) Continuous Medication Order 01/19/2024 01/20/2024 01/21/2024 lactated ringers infusion at 10 mL/hr, Intravenous, Continuous, Starting on Fri01/21/24 at 1030, Until Fri01/21/24 at 1335, Infuse at TKO rate, Pre-Op 1022 (New Bag - Prov ider: Desiree Dempsey RN)1028 (Paused - Provider: Selene Dye CRNA - Comment: Switch to gravity)1029 (Restarted - Provider: Selene Dye CRNA)1049 (Anesthesia Volume Adjustment - Provider: Selene Dye CRNA)1056 (New Bag - Provider: Mamta Guido RN) PRN Medication Order 01/19/2024 01/20/2024 01/21/2024 lidocaine (PF) (XYLOCAINE) 1 % injection (CANCELED) As needed, Starting on Fri01/21/24 at 1038, Until Fri01/21/24 at 1049, Intra-Op 1038 (Given - Provid er: Catherine Newman MD) tetracaine 0.5 % ophthalmic solution (CANCELED) As needed, Starting on Fri01/21/24 at 1033, Until Fri01/21/24 at 1049, Intra-Op 1033 (Given - Provid er: Yary Cottrell RN) documented in this encounter Care Teams Independent Living Specialist Relationship Specialty Start Date End Date Casa Encarnacion MD [address] [place] [address] PCP - General INTERNAL MEDICINE 03/16/19 documented as of this encounter
--- OUTSIDE RECORDS SUMMARY | 2024-09-08 20:41 | XMS_ITS | Encounter Summary ---
Author Organization [facility] Address [address] [place] [address] Care Team Providers Care Supervisor Brooder Farm Name Role Phone Casa Encarnacion MD Primary Care Provider Reason for Visit * Reason Comments Refill Request Encounter Details Date Type Department Care Team (Late Contact Info) Description 09/02/2018 Refill [facility] Obstetrics Gynecology and Women's Health [address] [place] [address] Aye Dao MD [address] [address] Refill Request Social History Tobacco [...] Description 05/24/2025 2:00 PM CDT Office Visit [facility] - IT DESKTOP SUPPORT SPECIALIST [address] [place] [address] Aye Dao MD [address] [facility] [address] [place] [address] documented as of this encounter Visit Diagnoses Not on filedocumented in this encounter Care Teams Supervisor Brooder Farm Relationship Specialty Start Date End Date Casa Encarnacion MD PCP - General 12/12/15 documented as of this encounter
--- OUTSIDE RECORDS SUMMARY | 2024-09-08 20:41 | XMS_ITS | Encounter Summary ---
Author Organization [facility] Address [address] [place] [address]. [place] [address] [place] [address] Care Team Providers Care Adventure Challenge Instructor Name Role Phone Casa Encarnacion MD Primary Care Provider [phone] Reason for Visit * Auth/Cert Specialty Diagnoses / Procedures Referred By Rosalva t Referred To Contact Diagnoses h25.9 Procedures REMV CATARACT EXTRACAP,INSERT LENS EXTRACTION CATARACT left EYE WITH LENS IMPLANT Referral ID Status Reason Start Date Expiration Date Visits Re quested Visits Authorized [id number] 1 1 Encounter Details Date Type Department Care Team (Late st Contact Info) Description 01/21/2024 10:29 AM CDT Anesthesia Event [facility] [facility] [address] [facility] [place] [address] Leoncio Hinds CRNA [address] [place], [place] [id number] Anesthesia Record Procedure Summary Procedure Name Responsible Anesthesiologist Anesthesia Start Time Anesthesia Stop Time EXTRACTION CATARACT left EYE WITH LENS IMPLANT (Left: Eye) 01/21/24 1029 01/21/24 1051 Events Date Time Event Comment 01/21/2024 1025 1025 AN INSIDE SOLAR SALES CONSULTANT Prepped 1025 AN Anesthesia Prepped 1029 An Start Patient ID and consent checked and patient reassessed. 1029 An Start Data 1031 Nasal Cannula Applied 1033 AN Immediate Reassess The pa tient was reevaluated immediately before sedation or regional anesthesia. 1034 Anesthesia Ready 1046 Nasal Cannula Removed 1049 an stop data 1051 An Stop 1051 Post Anesthetic Care Handoff I completed my handoff to the receiving nurse during which we: 1. Identified the patient 2. Identified the responsible provider 3. Reviewed the pertinent medical history 4. Discussed the surgical course 5. Reviewed intra-op anesthesia management and issues during anesthesia 6. Set expectations for post-procedure period 7. Allowed opportunity for questions and acknowledgement of understanding. Meds Name Total midazolam 2 mg/2 mL injection 1 mg ketamine 50 mg/mL injection 15 mg lactated ringers infusion 300 mL * Agents Name O2 Ancillary O2 * Blood No blood administrations on file. Lines, Drains, and Airways Type Details Placement Removal Peripheral IV Placement Date: 01/21/24; Placement Time: 1021; Placed Outside of This Facility?: No; Size: 22 G; Orientation: Left; Location: Antecubital; Insertion attempts: 3; Ultrasound-guided Placement?: No; Patient Tolerance: Tolerated well; Removal Date: 01/21/24; Removal Time: 1118; Removal Reason: Patient Discharged 01/21/24 1021 by Desiree Dempsey RN 01/21/24 1118 by Mamta Guido RN Surgical/Incision 01/21/24; 1034; Surgical Wound; Eye; Left; plastic shield with paper tape; 01/21/24; 1335 01/21/24 1034 by Carolyne Lewis RN 01/21/24 1335 by Automatic Discharge Provider documented in this encounter Social History Tobacco Use Types Packs/Day Years [...] on file documented as of this encounter Functional Status * RETIRED Are you deaf or do you have serious difficulty hearing Answer Date of Assessment Author Status No 01/26/2020 5:15 PM CDT Activ e * RETIRED Are you blind or do [...] Author Status No 01/26/2020 5:15 PM CDT Uniuqe Mejia RN Active * Because of a physical, mental, or emotional condition, do you have difficulty doing errands alone such as visiting a doctor's office or shopping? Answer Date of Assessment Author Status No 01/26/2020 5:15 PM DANNAT Unique Mejia RN Active documented as of this encounter Mental Status * Because of a physical, mental, or emotional condition, do you have serious difficulty concentrating, remembering, or making decisions? Answer Entry Date Author Status No 01/26/2020 5:15 PM Unique Rueda RN Active documented in this encounter OR Notes * Anesthesia Postprocedure Evaluation - Sofia Porter CRNA - 01/21/2024 11:01 AM CDT Anesthesia Post-op Note Luanne Gotti Procedure(s): EXTRACTION CATARACT left EYE WITH LENS IMPLANT (Left: Eye) Anesthesia type: MAC Vitals: 01/21/24 1050 BP: (!) 164/98 Vitals: 01/21/24 1050 Pulse: 62 Vitals: 01/21/24 1050 Resp: 16 Vitals: 01/21/24 1050 Temp: 36.1 ??C Vitals: 01/21/24 1050 SpO2: 96% Patient Location: Phase II/Outpatient Level of Consciousness: awake, alert and oriented Pain Management: adequate analgesia Airway Patency: patent Respiratory Status: spontaneous ventilation and acceptable Cardiovascular Status: acceptable, stable and hemodynamically stable Post-Op Nausea: none Postoperative Hydration: euvolemic No notable events documented. * Anesthesia Preprocedure Evaluation - Sofia Porter CRNA - 01/14/2024 8:02 AM CDT Anesthesia ROS/MED History Reviewed: Patient summary , Nursing notes , ECG, Family history anesthesia, Anesthesia history , Medications , Labs Pre-Anesthetic State: alert, awake and responds appropriately Pulmonary neg pulmonary ROS Cardiovascular neg cardio ROS Exercise tolerance:good (+) hypertension Neuro/Psych neg neuro/psych ROS (+) CVA Substance Use no history of substance abuse GI/Hepatic/Renal neg GI/hepatic/renal ROS Endo/Other neg endo/other ROS GENERAL COMMENTS Did well with previous Right eye ASA 2 ++ SUMMARY: ++++++++++++++++++++++++++++++++++++ The left ventricular size is normal. The left ventricular systolic function is hyperdynamic. Estimated left ventricular ejection fraction is greater than 70%. Moderate concentric left ventricular hypertrophy. Left ventricular relaxation is impaired. The right ventricle is normal. The left atrial size is moderately enlarged. Ascending aorta is mildly dilated--4cm. Probable mild to moderate aortic regurgitation. Trace tricuspid regurgitation. NPO Status: Physical Evaluation Airway Mallampati: II TM Distance: >3 FB Neck ROM: normal Dental No notable dental history Pulmonary Pulmonary exam normal Breath sounds clear to auscultation Cardiovascular Rhythm: regular Rate: normal Cardiovascular exam normal STOP-Bang Assessment: Do you snore loudly?: 0 Do you often feel tired or fatigued after your sleep?: 0 Has anyone ever observed you stop breathing in your sleep?: 0 Do you have or are you being treated for high blood pressure?: 1 Recent BMI (Calculated): 22.6 Is BMI greater than 35 kg/m2?: 0=No Age older than 50 years old?: 1=Yes Is your neck circumference greater than 17 inches (Male) or 16 inches (Female)?: 0 Gender - Male: 0=No STOP-Bang Total Score: 2 Anesthesia Plan ASA 2 Intravenous Induction Anesthesia type: MAC Plan for Airway: nasal cannula/simple face mask Plan for Post-op Pain Plan: as per surgeon Informed Consent Anesthetic plan and risks discussed with patient of whom consent was obtained. Consent of blood products not discussed. . documented in this encounter Plan of Treatment Not on file documented as of this encounter Visit Diagnoses Not on filedocumented in this encounter Administered Medications Inactive Administered Medications - up to 3 most recent administrations Medication Order MAR Action Action Date Dose Rate Site ketamine (KETALAR) injection Intravenous, PRN, Starting on Fri01/21/24 at 1034, Until Fri01/21/24 at 1052, Anesthesia Intra-Op Given 01/21/2024 10:34 AM CDT 15 mg lactated ringers infusion at 10 mL/hr, Intravenous, Continuous, Starting on Fri01/21/24 at 1030, Until Fri01/21/24 at 1335, Infuse at TKO rate, Pre-Op New Bag 01/21/2024 10:56 AM CDT 10 mL/hr Restarted 01/21/2024 10:29 AM CDT New Bag 01/21/2024 10:22 AM CDT 10 mL/hr midazolam (VERSED) injection Intravenous, PRN, Starting on Fri01/21/24 at 1033, Until Fri01/21/24 at 1052, Anesthesia Intra-Op Given 01/21/2024 10:33 AM CDT 1 mg documented in this encounter Care Teams Adventure Challenge Instructor Relationship Specialty Start Date End Date Casa Encarnacion MD [address] [place] [address] PCP - General INTERNAL MEDICINE 03/16/19 documented as of this encounter
--- OUTSIDE RECORDS SUMMARY | 2024-09-08 20:41 | XMS_ITS | Encounter Summary ---
Author Organization [facility] Address [facility] [facility] [place] [address] [place] [address] Care Team Providers Care Vessel Welder Name Role Phone Casa Encarnacion MD Primary Care Provider [phone] Encounter Details Date Type Department Care Team (Latest Contact Info) Description 12/24/2023 Travel Social History Tobacco Use Types Packs/Day [...] the Last Year Never true 01/26/2020 Comments Unknown Sex and Gender Information Value Date Recorded [...] Assessment Author Status No 01/26/2020 5:15 PM Unique Rueda RN Active * Do you have difficulty dressing or bathing? Answer Date of Assessment Author Status No 01/26/2020 5:15 PM Unique Rueda RN Active * Because of a physical, mental, or emotional condition, do you have difficulty doing errands alone such as visiting a doctor's office or shopping? Answer Date of Assessment Author Status No 01/26/2020 5:15 PM Unique Rueda RN Active documented as of this encounter Mental Status * Because of a physical, mental, or emotional condition, do you have serious difficulty concentrating, remembering, or making decisions? Answer Entry Date Author Status No 01/26/2020 5:15 PM Unique Rueda RN Active documented in this encounter Plan of Treatment Not on file documented as of this encounter Visit Diagnoses Not on filedocumented in this encounter Care Teams Vessel Welder Relationship Specialty Start Date End Date Casa Encarnacion MD [address] [place] [address] PCP - General INTERNAL MEDICINE 03/16/19 documented as of this encounter
--- OUTSIDE RECORDS SUMMARY | 2024-09-08 20:41 | XMS_ITS | Encounter Summary ---
Author Organization [facility] Address [facility] Formerly [facility] [place] [address] [place] [address] Care Team Providers Care Controller Coal Or Ore Name Role Phone Casa Encarnacion MD Primary Care Provider [phone] Reason for Visit * Auth/Cert Specialty Diagnoses / Procedures Referred By Rosalva t Referred To Contact Diagnoses h25.9 Procedures REMV CATARACT EXTRACAP,INSERT LENS EXTRACTION CATARACT left EYE WITH LENS IMPLANT Referral ID Status Reason Start Date Expiration Date Visits Re quested Visits Authorized [id number] 1 1 Encounter Details Date Type Department Care Team (Late st Contact Info) Description 01/21/2024 11:05 AM CDT - 01/21/2024 11:[address] [facility] [address] [address] Catherine Newman MD [facility] [place] [address] EXTRACTION CATARACT left EYE WITH LENS IMPLANT Surgery Details Date/Time Status Location OR Service Patient Class Case Class Case Type Trauma Case? 01/21/2024 11:05 AM Posted [facility] OR OR 1 Ophthalmology Short Stay/Outpat ient Surgery No Panel 1 Procedure LRB Anes Op Region Wound Class Comments EXTRACTION CATARACT left EYE WITH LENS IMPLANT Left Monitor Anesthesia Care Eye Clean Surgeon Surgeon Role Service Panel Catherine Newman MD Primary Ophthalmology 1 documented in this encounter Social History Tobacco [...] Care Everywhere. * Cataract Removal Discharge Instructions (Japanese) * Moderate Sedation in Adults Discharge Instructions (Japanese) documented in this encounter Medications at Time [...] during recuperation were discussed with the patient/family/personal surgical device sales representative. Reasonable alternatives to the patient's proposed procedure/surgery including benefits, risks, and side effects related to the alternatives and the risks related to not receiving the proposed care were also discussed with the patient/family/personal surgical device sales representative. Questions were answered and the patient/family/personal surgical device sales representative verbalized understanding and desires to proceed. Source Note - Scanned, [facility] - 01/21/2024 12:00 AM CDT documented in this encounter OR Notes * Brief Op Note - Catherine Newman MD - 01/21/2024 10:48 AM CDT Patient: Luanne Gotti 1935 [id number] Preoperative Diagnosis: Visually significant cataract Postoperative Diagnosis: Visually significant cataract Procedure: Cataract Extraction with Intraocular Lens Placement, LEFT Eye Surgeon: Catherine Newman MD It Disaster Recovery Manager: none Anesthesia: Monitor Anesthesia Care Implant: Implant Name Type Inv. Item Serial No. Raw Material Planner Lot No. LRB No. Used Action IOL TECNIS SIMPLICITY DCB00 - [id number] Lens IOL TECNIS SIMPLICITY DCB00 [id number] [employer] V[employer] DCB00 Left 1 Implanted Specimen: none [...] Bag 01/21/2024 10:22 AM CDT 10 mL/hr lidocaine (PF) (XYLOCAINE) 1 % injection As needed, Starting on Fri01/21/24 at 1038, Until Fri01/21/24 at 1049, Intra-Op Given 01/21/2024 10:38 AM CDT 1 mL Left Eye moxifloxacin (VIGAMOX) 0.5 % ophthalmic solution 1 [...] Fri01/21/24 at 1008, Created by cabinet override tetracaine 0.5 % ophthalmic solution As needed, Starting on Fri01/21/24 at 1033, Until Fri01/21/24 at 1049, Intra-Op Given 01/21/2024 10:33 AM CDT 2 drops Operative Site tropicamide (MYDRIACYL) 1 % ophthalmic solution 1 [...] Pre-Op 1008 (Given - Provid er: Desiree Dempesy RN)1016 (Given - Provider: Desiree Dempsey RN) [...] RN) documented in this encounter Care Teams Controller [place] Relationship Specialty Start Date End Date Casa Encarnacion MD [address] [place] [address] PCP - General INTERNAL MEDICINE 03/16/19 documented as of this encounter
--- OUTSIDE RECORDS SUMMARY | 2024-09-08 20:41 | XMS_ITS | Encounter Summary ---
Author Organization [facility] Health Address [address] [place] [address] Care Team Providers Care Photographic Equipment Mechanic Name Role Phone Casa Encarnacion MD Primary Care Provider [phone] Reason for Visit * Reason Onset Date Comments Pain Pelvic 10/16/2018 Encounter Details Date Type Department Care Team (Late st Contact Info) Description 10/16/2018 Telephone [facility] [address] [place] [address] Aye Dao MD [address] [address] Pain Pelvic Social History Tobacco Use Types Packs/Day Years [...] Telephone Encounter - Iris Lundy LPN - 10/16/2018 2:12 PM CARTON FORMING MACHINE HELPER Attempt to call patient. - left a message I will try back again later. I spoke with the patient - she did go to [employer] . Leave a sample. Would like us to call her Friday with the results. She is actually doing better today. We discussed what if culture is negative ? I explained - it maybe her body needs time to adjust to the medication changes. But if the culture is negative and she is still having issues. We will discuss with Dr. Zhao. I will make sure to call her Friday with the results. She is agreeable and very thankful ON FORMING MACHINE HELPER * Telephone Encounter - Celena Joel - 10/16/2018 1:42 PM CST Pt called in complaining of pelvic pain and would like to speak to Dr Zhao's nurse. Pt callback# [phone] ON FORMING MACHINE HELPER documented in this encounter Plan of Treatment Upcoming Encounters Date Type Department Care Team (Late st Contact Info) Description 05/24/2025 2:00 PM CDT Office Visit [facility] - PAINT SPRAY TENDER [address], [facility] [address] [place] [address] Aye Dao MD [address] [place] [email or web address] [address] [place] [address] documented as of this encounter Visit Diagnoses Not on filedocumented in this encounter Care Teams Photographic Equipment Mechanic Relationship Specialty Start Date End Date Casa Encarnacion MD PCP - General 12/12/15 documented as of this encounter
--- OUTSIDE RECORDS SUMMARY | 2024-09-08 20:41 | XMS_ITS | Encounter Summary ---
Author Organization [facility] Health Address [address] [place] [address] Care Team Providers Care Shank Inspector Name Role Phone Casa Encarnacion MD Primary Care Provider [phone] Reason for Visit * Reason Onset Date Comments Med Question 03/05/2018 Encounter Details Date Type Department Care Team (Late st Contact Info) Description 03/05/2018 Telephone [facility] [address] [place] [address] Aye Dao MD [address] [address] Med Question Social History Tobacco [...] Telephone Encounter - Iris Lundy LPN - 03/05/2018 2:13 PM CDT Spoke with the patient appt February 25 . Not feeling good - could not get in. Wants to make another appt. appt given for . She will call if needs us between times. Patient is agreeable and very thankful * Telephone Encounter - Cezar Luisana Smith - 03/05/2018 9:25 AM CDT PT CALLED IN STATING SHE HAS SOME CONCERNS ABOUT SOME MEDS THAT SHE TAKES AND WOULD LIKE TO TALK TOSOMEONE. CALLBACK# [phone] documented in this encounter Plan of Treatment Upcoming Encounters Date Type Department Care Team (Late st Contact Info) Description 05/24/2025 2:00 PM CDT Office Visit [facility] - PANELBOARD OPERATOR [address] [facility] 200 [place] [address] Aye Dao MD [address] [facility] [address] [place] [address] documented as of this encounter Visit Diagnoses Not on filedocumented in this encounter Care Teams Shank Inspector Relationship Specialty Start Date End Date Casa Encarnacion MD PCP - General 12/12/15 documented as of this encounter
--- OUTSIDE RECORDS SUMMARY | 2024-09-08 20:41 | XMS_ITS | Encounter Summary ---
Author Organization [facility] Health Address [address] [place] [address] Care Team Providers Care Production Estimator Name Role Phone Casa Encarnacion MD Primary Care Provider [phone] Reason for Visit * Reason Comments Establish Care vulvar flare up Encounter Details Date Type Department Care Team (Late st Contact Info) Description 10/13/2018 10:30 AM DIRECT MARKETING SPECIALIST Office Visit [facility] Obstetrics Gynecology and Women's Health [address] [facility] [address] [place], [place] [id number] Aye Dao MD [address] [facility] [address] [place] [address] Vulvodynia (Primary Dx) Social History [...] Sign Reading Time Taken Comments Blood Pressure 114/76 10/13/2018 10:40 AM DIRECT MARKETING SPECIALIST Pulse - - Temperature - - Respiratory Rate - - Oxygen Saturation - - Inhaled Oxygen Concentration - - Weight 61.7 kg (136 lb) 10/13/2018 10:40 AM DIRECT MARKETING SPECIALIST Height 168.9 cm (5' 6.5 ) 10/13/2018 10:40 AM CS T Body Mass Index 21.62 10/13/2018 10:40 AM DIRECT MARKETING SPECIALIST documented in this encounter Patient Instructions * Patient Instructions* Aye Zhao MD - 10/13/2018 10:53 AM DIRECT MARKETING SPECIALIST Take 300 mg of gabapentin at breakfast and lunch and at bedtime take 600 mg (two capsules) If you get a bad flare let me know and we will get you right in. CT MARKETING SPECIALIST documented in this encounter Progress Notes * Aye Zhao MD - 10/13/2018 10:40 AM CST [facility] Return Visit Date: 10/13/2018 Allergies: Allergies Allergen Reactions ??? Seasonal Other Sneezing VS: Ht 5' 6.5 Wt 136 lb BMI 21.62 kg/m2 Treatment(s): gabapentin Status: stable Subjective: Was treated with Diflucan and this did not help, was then treated with Flagyl and a probiotic and feels better. Is using the vegetable shortening daily. Symptoms: (None=0; 10=Severe) Dyspareunia: Entry:not active Burning after intercourse:n/a Vaginal discharge: 0 Vulvar burnin can be 0 Vulvar itchin Clitoral pain: 0 Vulvar pain: 0 Urinary symptoms: 0 Correct product use: VCG followed on all aspects: Good compliance Vulvar Examination: Normal anatomy. No pain with palpation Cultures collected: None Biopsy: Impression/Plan: 1. Vulvodynia Continue with the gabapentin 300 mg at breakfast and lunch, will increase to 600 mg at bedtime Continue the Vulvar Care Guidelines 2. F/U in 6 months Time of visit: 20 minutes. Significant portion (>50%) of time was spent face to face in counseling the patient about vulvodynia and discussing the treatment plan as outlined in the instructions. All questions were answered to her satisfaction. CT MARKETING SPECIALIST documented in this encounter Plan of Treatment Upcoming Encounters Date Type Department Care Team (Late st Contact Info) Description 05/24/2025 2:00 PM CDT Office Visit [facility] - PLASTER APPLICATOR [address], [facility] [address] [place] [address] Aye Dao MD [address] [facility] [address] [place] [address] documented as of this encounter Visit Diagnoses Diagnosis Vulvodynia- Primary documented in this encounter Care Teams Production Estimator Relationship Specialty Start Date End Date Casa Encarnacion MD PCP - General 12/12/15 documented as of this encounter
--- OUTSIDE RECORDS SUMMARY | 2024-09-08 20:41 | XMS_ITS | Encounter Summary ---
Author Organization [facility] Health Address [address] [facility] [place] [address] Care Team Providers Care Trapper Animal Name Role Phone Casa Encarnacion MD Primary Care Provider [phone] Reason for Visit * Reason Onset Date Comments Follow-up 11/10/2018 Encounter Details Date Type Department Care Team (Late st Contact Info) Description 11/10/2018 Telephone [facility] [address] [place] [address] Aye Dao MD [address] [facility] [address] [place] [address] Follow-up Social History Tobacco Use Types Packs/Day Years [...] Telephone Encounter - Marilin Alvarado RN - 11/10/2018 8:45 AM EGYPTOLOGIST Phone call to patient who was incorrectly scheduled to see Dr Rios on 11/18/18 She is doing well Following VCGs Reports doing much better than she was in October Reviewed with her the incorrectly scheduled office visit with Dr Rios for 11/18/18, now canceled. She states the only appointment she has with this office will be in April with Dr Leonard Aware to call with needs TOLOGIST documented in this encounter Plan of Treatment Upcoming Encounters Date Type Department Care Team (Late st Contact Info) Description 05/24/2025 2:00 PM CDT Office Visit [facility] - CREDIT REPORTER [address], [facility] [address] [place] [address] Aye Dao MD [address] [facility] [address] [place] [address] documented as of this encounter Visit Diagnoses Not on filedocumented in this encounter Care Teams Trapper Animal Relationship Specialty Start Date End Date Casa Encarnacion MD PCP - General 12/12/15 documented as of this encounter
--- OUTSIDE RECORDS SUMMARY | 2024-09-08 20:41 | XMS_ITS | Encounter Summary ---
Author Organization [facility] Address [facility] [facility] [place] [address] [place] [address] Care Team Providers Care Boiler Tender Name Role Phone Casa Encarnacion MD Primary Care Provider [phone] Encounter Details Date Type Department Care Team (Latest Contact Info) Description 01/21/2024 Travel Social History Tobacco Use Types Packs/Day [...] on filedocumented in this encounter Care Teams Boiler Tender Relationship Specialty Start Date End Date Casa Encarnacion MD [address] [place] [address] PCP - General INTERNAL MEDICINE 03/16/19 documented as of this encounter
--- OUTSIDE RECORDS SUMMARY | 2024-09-08 20:41 | XMS_ITS | Clinical Summary ---
Author Organization [facility] Address [facility] [place] [address] [place] [address] Care Team Providers Care Dope House Operator Helper Name Role Phone Casa Encarnacion MD Primary Care Provider [phone] Allergies Active Allergy Reactions Criticality Noted Date Comments Seasonal Unknown Low 08/27/2017 Sneezing Medications gabapentin 300 MG capsule One capsule by mouth at breakfast and lunch, two capsules at bedtime 9 Active metoprolol tartrate 25 MG tablet Take 1 tablet (25 mg total) by mouth 2 (two) times a day. 7 Active mirtazapine 30 MG tablet Take 0.5 tablets (15 mg total) by mouth nightly at bedtime. 5 Active chlordiazepoxide 5 MG capsule Take 1 capsule (5 mg total) by mouth 3 (three) times daily as needed for Anxiety. 9 Active cetirizine 10 MG tablet Take 1 tablet (10 mg total) by mouth as needed for Allergies. Active acetaminophen 500 MG tablet Take 1 tablet (500 mg total) by mouth every 4 (four) hours as needed for Pain. Active bismuth subsalicylate 525 MG/15ML Suspension suspension Take 30 mLs by mouth every 6 (six) hours as needed for Indigestion. Active cranberry 450 MG Tab tablet Take 1 tablet (450 mg total) by mouth daily. Active loperamide 2 MG capsule Take 1 capsule (2 mg total) by mouth 4 (four) times daily as needed for Diarrhea. Active docusate sodium 100 MG capsule Take 1 capsule (100 mg total) by mouth 2 (two) times daily as needed for Constipation. Active aspirin 81 MG chewable tablet Chew 1 tablet (81 mg total) by mouth daily. 30 tablet 0 Active atorvastatin 40 MG tablet Take 1 tablet (40 mg total) by mouth nightly at bedtime. 30 tablet 0 Active lisinopril 2.5 MG tablet Take 1 tablet (2.5 mg total) by mouth daily. 30 tablet 0 Active vitamin B-12 (CYANOCOBALAMIN) 1000 mcg tablet Take 1 tablet (1,000 mcg total) by mouth daily. Active ciprofloxacin (CIPRO) 250 MG tablet 4 Active Active Problems Problem Noted Date Diagnosed Date Confusion 01/28/2020 Acute ischemic stroke ([facility]) 01/26/20 Family History Medical History Relation Comments No Known Problems Brother No Known Problems Father No Known Problems Maternal Aunt No Known Problems Maternal Grandfather No Known Problems Maternal Grandmother No Known Problems Maternal Uncle No Known Problems Mother No Known Problems Paternal Aunt No Known Problems Paternal Grandfather No Known Problems Paternal Grandmother No Known Problems Paternal Uncle No Known Problems Sister Relation Status Comments Brother Father Maternal Aunt Maternal Grandfather Maternal Grandmother Maternal Uncle Mother Paternal Aunt Paternal Grandfather Paternal Grandmother Paternal Uncle Sister Social History Tobacco Use Types Packs/Day Years [...] Mass Index 22.6 01/15/2024 10:26 AM CDT Plan of Treatment Health Maintenance Due Date Last Done Comments DTaP, Tdap and Td Vaccines ( 1 - Tdap) 02/23/1954 Zoster Vaccines (1 of 2) 1987 Annual Medicare Wellness Visit 2002 RSV Immunization or 60+ Years (1 - 1-dose 75+ series) 02/23/2012 Pneumococcal Vaccine: 65+ Years (2 of 2 - PPSV23 or PCV20) 03/04/2017 03/04/2016 COVID-19 Vaccine (2023-2 5 season) 2024 Influenza Adult (#1) 2024 06/08/2014, 05/31/2013, 06/25/2012 Meningococcal Vaccine Aged Out No adam yuniel eligible based on patient's age to complete this topic RSV Immunizations Under 20 Months Aged Out No longer eligible b ased on patient's age to complete this topic Medical Devices Implanted Type Area Commercial Loan Assistant Device Identifier Shelf Expiration Date Model / Serial / Lot Iol Tecnis Simplicity Dcb00 - [id number] Implanted:Qty: 1 on 01/21/2024 by Catherine Newamn MD at [facility] Lens Left: Eye [employer] [id number] 05/05/2026 DCB00 / [id number] / DCB00 Tecnis 1-Piece Iol Implanted:Qty: 1 on 12/24/2023 by Catherine Newman MD at [facility] Right: Eye [employer] [id number] 04/14/2026 DCB00 / [id number] / [id number] Insurance MEDICARE MEDICARE [employer] Advance Directives * Full Code (Latest Code Status on File) Date Activated Date Inactivated Comments 01/26/2020 4:14 PM 01/31/2020 5:58 PM Care Teams Dope House Operator Helper Relationship Specialty Start Date End Date Casa Encarnacion MD [address] [place] [address] PCP - General INTERNAL MEDICINE 03/16/19
--- OUTSIDE RECORDS SUMMARY | 2024-09-08 20:41 | XMS_ITS | Encounter Summary ---
Author Organization [facility] Health Address [address] [place] [address] Care Team Providers Care Yeast Stacker Name Role Phone Casa Encarnacion MD Primary Care Provider [phone] Reason for Visit * Reason Comments Refill Request Encounter Details Date Type Department Care Team (Late Contact Info) Description 06/29/2018 Refill [facility] Obstetrics Gynecology and Women's Health [address] [place] [address] Aye Dao MD [address] [address] Refill Request Social History Tobacco [...] Description 05/24/2025 2:00 PM CDT Office Visit [facility] - PRINT MACHINE OPERATOR [address], [place] [place] [address] Aye Dao MD [address] [facility] [address] [place] [address] documented as of this encounter Visit Diagnoses Not on filedocumented in this encounter Care Teams Yeast Stacker Relationship Specialty Start Date End Date Casa Encarnacion MD PCP - General 12/12/15 documented as of this encounter
--- OUTSIDE RECORDS SUMMARY | 2024-09-08 20:41 | XMS_ITS | Encounter Summary ---
Author Organization [facility] Health Address [address] [facility] [place] [address] Care Team Providers Care It Support Analyst Name Role Phone Casa Encarnacion MD Primary Care Provider [phone] Reason for Visit * Reason Onset Date Comments Pain 10/21/2018 Vulvar Pain 10/21/2018 Encounter Details Date Type Department Care Team (Late st Contact Info) Description 10/21/2018 Telephone [facility] [address] [place] [address] Aye Dao MD [address] [facility] [address] [place] [address] Pain; Vulvar Pain Social History [...] Telephone Encounter - Marilin Alvarado RN - 10/21/2018 4:48 PM BEATER OUT LEVELING MACHINE Patient so very happy to know that Dr Leonard sent script for Diflucan As one every other day for 3 doses total She will start that tomorrow Will finish the ampicillin as ordered ER OUT LEVELING MACHINE * Telephone Encounter - Aye Leonard MD - 10/21/2018 4:33 PM CST Script for Diflucan 200 mg tablet, one by mouth every other day for three doses sent to pharmacy. ER OUT LEVELING MACHINE * Telephone Encounter - Katty Murphy - 10/21/2018 1:20 PM CST Pt called stating that she is having a lot of pain around her vulva area. Pt would like a medication for the pain. Callback#[phone] ER OUT LEVELING MACHINE documented in this encounter Plan of Treatment Upcoming Encounters Date Type Department Care Team (Late st Contact Info) Description 05/24/2025 2:00 PM CDT Office Visit [facility] - ACID TESTER [address] [facility] [address] [place] [address] Aye Dao MD [address] [facility] [address] [place] [address] documented as of this encounter Visit Diagnoses Diagnosis Vulvar burning- Primary Unspecified symptom associated with female genital organs documented in this encounter Care Teams It Support Analyst Relationship Specialty Start Date End Date Casa Encarnacion MD PCP - General 12/12/15 documented as of this encounter
--- OUTSIDE RECORDS SUMMARY | 2024-09-08 20:41 | XMS_ITS | Encounter Summary ---
Author Organization [facility] Health Address [address] [facility] [place] [address] Care Team Providers Care Airborne Sensor Specialist Name Role Phone Casa Encarnacion MD Primary Care Provider [phone] Reason for Visit * Reason Onset Date Comments Question 10/15/2018 Encounter Details Date Type Department Care Team (Late st Contact Info) Description 10/15/2018 Telephone [facility] [address] [place], [place] [id number] Aye Dao MD [address] [address] Question Social History Tobacco Use [...] Telephone Encounter - Tobias Mora RN - 10/19/2018 10:44 AM CST + UTI. Dr. Zhao contacted pt and ordered treatment. CLERK * Telephone Encounter - Tobias Mora RN - 10/15/2018 3:43 PM CST She started yesterday with lots of burning all the time, but not when she voids. Pressure felt in the vagina after housework yesterday which went away after she rested. Then she felt it again today after she did more housework, but again pressure stopped totally after resting. She really hoped to get Diflucan, but denies itching or discharge. She took Ibuprofen to help with the pain. Crisco helped some with pain - uses 2x in the am, afternoon and at night. Also using Sitz baths. She doesn't think she has a UTI and she usually feels symptoms. Denies: pain w/ voids, Urgency, frequency. Gets up 1x/ night which is her normal. She takes her Gabapentin as follows: 300mg in the am, 300 at noon, 300 w/ dinner , and [address] Zhao's instructions - take 600mg at bedtime. Stop the dinner dose. PLAN: For pressure: stop all housework for the next couple days and see if pressure comes back on it's own. Call us after 3 days on Friday with an update. For burning: if still have tomorrow, go to Dr. Encarnacion's office and give a urine sample just to be sure. Confirmed they have a [facility] in their office. If burning gets better ( hopefully increasing Gabapentin to 600mg at one time may help), don't need to ( go out in the cold ) and give a sample. She agrees to plan. Verbalized understanding. CLERK * Telephone Encounter - Aye Zhao MD - 10/15/2018 1:06 PM CST Please call patient. I just saw her this week and all looked fine. She was to increase her gabapentin to 600 mg at bedtime and continue with the 300 mg at breakfast and lunch. If she is having increase in burning again, she will need to go to [facility] and get a urine culture. CL CLERK * Telephone Encounter - Bert Ortiz - 10/15/2018 12:45 PM CST Pt would like to speak with the nurse because she is having the same problems she has been having. Callback#[phone] CLERK documented in this encounter Plan of Treatment Upcoming Encounters Date Type Department Care Team (Late st Contact Info) Description 05/24/2025 2:00 PM CDT Office Visit [facility] - CIVIL ENGINEERING DRAFTER [address], [address] [place] [phone] Aye Dao MD [address] [place] [address] documented as of this encounter Procedures Procedure Name Priority Date/Time Associated Diagnosis Comments CULTURE URINE Routine 10/16/2018 2:02 PM HALL CLERK Acute cystitis without hematuria documented in this encounter Results * (ABNORMAL) CULTURE URINE (10/16/2018 2:02 PM HALL CLERK) Culture (A) [facility] Comment: ??CULTURE, URINE, ROUTINE ?MICRO NUMBER: ?[id number] ??TEST STATUS: ? FINAL ??SPECIMEN SOURCE: ?? URINE, CLEAN CATCH ??SPECIMEN QUALITY: ??ADEQUATE ??RESULT: ?Greater than 100,000 CFU/mL of Enterococcus species ?Enterococcus sp. ?INT ?? LEO ?? AMPICILLIN ? S ? <=2 ?? NITROFURANTOIN ? I ? 64 ?? VANCOMYCIN ? S ? <=0.5 S=Susceptible ??I=Intermediate ??R=Resistant ??* = Not Tested NR = Not Reported ??NN = See Therapy Comments Test Performed at: [facility] ??[id number] ZORAIDA TYLER MD Urine URINE SPECIMEN OBTAINED BY CLEAN CATCH PROCEDURE / Unknown 10/16/2018 2:02 PM HALL CLERK 10/16/2018 2:02 PM HALL CLERK Aye Dao MD LAB - MICROBIOLOGY ORDERABLES Performing Organization Address City/State/[facility] Co de Phone Number [address] [address] documented in this encounter Visit Diagnoses Diagnosis Acute cystitis without hematuria- Primary Acute cystitis documented in this encounter Care Teams Airborne Sensor Specialist Relationship Specialty Start Date End Date Casa Encarnacion MD PCP - General 12/12/15 documented as of this encounter
--- OUTSIDE RECORDS SUMMARY | 2024-09-08 20:41 | XMS_ITS | Encounter Summary ---
Author Organization [facility] Health Address [address] [place] [address] Care Team Providers Care Line Haul Driver Name Role Phone Casa Encarnacion MD Primary Care Provider [phone] Reason for Visit * Reason Onset Date Comments Vulvar Irritation 09/02/2018 Encounter Details Date Type Department Care Team (Late st Contact Info) Description 09/02/2018 Telephone [facility] [address] [place] [address] Aye Dao MD [address] [facility] [address] [place] [address] Vulvar Irritation Social History Tobacco Use Types Packs/Day Years [...] Telephone Encounter - Aye Zhao MD - 09/02/2018 10:55 AM STAVE PLANER TENDER Informed that script sent in for Diflucan 200 mg tablet, one by mouth every other day for three doses.. If still with symptoms after taking to let me know. E PLANER TENDER * Telephone Encounter - Katty Murphy - 09/02/2018 10:49 AM CST Pt states that she is having problems with burning and would like a scrip of [facility] NKA. Callback#[phone] E PLANER TENDER documented in this encounter Plan of Treatment Upcoming Encounters Date Type Department Care Team (Late st Contact Info) Description 05/24/2025 2:00 PM CDT Office Visit [facility] - DIRECTOR OF CORPORATE STRATEGY [address] [place], [facility] [address] [place] [address] Aye Dao MD [address] [facility] [address] [place] [address] documented as of this encounter Visit Diagnoses Not on filedocumented in this encounter Care Teams Line Haul Driver Relationship Specialty Start Date End Date Casa Encarnacion MD PCP - General 12/12/15 documented as of this encounter
--- OUTSIDE RECORDS SUMMARY | 2024-09-08 20:41 | XMS_ITS | Encounter Summary ---
Author Organization [facility] Health Address [address] [facility] [place] [address] Care Team Providers Care Behavioral Health Consultant Name Role Phone Casa Encarnacion MD Primary Care Provider Reason for Visit * Reason Onset Date Comments Vaginal Problem 09/18/2018 Encounter Details Date Type Department Care Team (Late st Contact Info) Description 09/18/2018 Telephone [facility] [address] [place] [address] Aye Dao MD [address] [address] Vaginal Problem Social History Tobacco Use Types Packs/Day Years Used Date Smoking Tobacco: Never Smokeless Tobacco: Never Alcohol Use Standard Drinks/Week Comments No 0 (1 standard drink = 0.6 oz pur e alcohol) Sex and Gender Information Value Date Recorded Sex Assigned at Not on file Gender Identity Not on file Sexual Orientation Not on file documented as of this encounter Patient Instructions * Patient Instructions* Beth Rossi - 09/18/2018 12:06 PM HAIR SPRING CUTTER The Kashiflucan didn't work and she is having pressure. She would like meds called into [facility] [phone]. SPRING CUTTER documented in this encounter Miscellaneous Notes * Telephone Encounter - [place], Iris R, DENTAL EQUIPMENT INSTALLER AND SERVICER - 09/18/2018 12:47 PM HAIR SPRING CUTTER Patient finished her diflucan - the itching is better. Has just a little bit now. Does feel pressure in vulva area now. Will increase her baking soda sitz baths to 1 - 2 x day . Continue her medications as well. I also suggested a cold pack to her bottom . She will try these things for the weekend - if not better Friday will call back. I will get this message to Dr. Zhao. SPRING CUTTER documented in this encounter Plan of Treatment Upcoming Encounters Date Type Department Care Team (Late st Contact Info) Description 05/24/2025 2:00 PM CDT Office Visit [facility] - BREAD DUMPER [address] [place] [address], [facility] [address] [place] [address] Aye Dao MD [address] [facility] [address] [place] [address] documented as of this encounter Visit Diagnoses Not on filedocumented in this encounter Care Teams Behavioral Health Consultant Relationship Specialty Start Date End Date Casa Encarnacion MD PCP - General 12/12/15 documented as of this encounter
--- OUTSIDE RECORDS SUMMARY | 2024-09-08 20:41 | XMS_ITS | Encounter Summary ---
Author Organization [facility] Health Address [address] [place] [address] Care Team Providers Care Banquet Cook Name Role Phone Casa Encarnacion MD Primary Care Provider [phone] Reason for Visit * Reason Onset Date Comments Question 09/21/2018 Encounter Details Date Type Department Care Team (Late st Contact Info) Description 09/21/2018 Telephone [facility] [address] [place] [id number] Aye Dao MD [address] [address] Question Social History Tobacco Use [...] Telephone Encounter - Marilin Alvarado RN - 09/21/2018 2:31 PM EDUCATIONAL TECHNOLOGIST Notified patient of Dr Leonard's reply that she will give one more round of Diflucan 200 , one every other day for 3 doses total. This will be the last Rx for this medication without a fungal culture being sent. Luanne agreeable Script sent Patient is scheduled to see Dr Leonard 11/17/18. ATIONAL TECHNOLOGIST * Telephone Encounter - Marilin Alvarado RN - 09/21/2018 2:01 PM EDUCATIONAL TECHNOLOGIST Last couple of days , using sitz baths as feeling irritation there (vulvar) Some discharge, thicker white Using the Crisco daily Using gabapentin 300 mg TID Still having burning when up and moving around Things were better after finishing the 3 diflucan prescribed 09/02/18 But now irritation is back Aware we will discuss with Dr Leonard and be back in touch with patient: [phone] ATIONAL TECHNOLOGIST * Telephone Encounter - Celena Joel - 09/21/2018 10:47 AM CST Pt called in stating that she would like to speak to Dr Leonard's nurse. When I asked what it was regarding, pt stated that she has questions about a medication and also she has personal questions. Pt callback# [phone] ATIONAL TECHNOLOGIST documented in this encounter Plan of Treatment Upcoming Encounters Date Type Department Care Team (Late st Contact Info) Description 05/24/2025 2:00 PM CDT Office Visit [facility] - STOCK CHECKERER [address], [facility] [address] [place] [address] Aye Dao MD [address] [place] [address] documented as of this encounter Visit Diagnoses Not on filedocumented in this encounter Care Teams Banquet Cook Relationship Specialty Start Date End Date Casa Encarnacion MD PCP - General 12/12/15 documented as of this encounter
--- OUTSIDE RECORDS SUMMARY | 2024-09-08 20:41 | XMS_ITS | Encounter Summary ---
Author Organization [facility] Health Address [address] [place] [address] Care Team Providers Care Comb Winder Name Role Phone Casa Encarnacion MD Primary Care Provider [phone] Reason for Visit * Reason Onset Date Comments Insurance Issue/question 11/30/2018 Encounter Details Date Type Department Care Team (Late st Contact Info) Description 11/30/2018 Telephone [facility] [address] [place] [address] Aye Dao MD [address] [facility] [address] [place] [address] Insurance Issue/question Social History Tobacco Use Types Packs/Day Years [...] Telephone Encounter - Iris Lundy LPN - 11/30/2018 11:49 AM CDT I spoke with the patient. Trying to get health insurance cheaper. Her insurance needs to know why she is taking the gabapentin. She would not tell me - where the fax number was going to. I asked how she found out - this was needed. She has a business case analyst for her insurance . Keya Alejo. Her cell number is [phone]. I spoke with Keya. 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 She is needinga letter stating why the patient is using it. It is to be faxed to [phone]. We will take care of it. Letter written and faxed. * Telephone Encounter - Caitie Tomlinson - 11/30/2018 11:40 AM CDT Pt called requesting to speak to a nurse regarding her insurance. She didn't give me any more information. Pt callback# [phone] documented in this encounter Plan of Treatment Upcoming Encounters Date Type Department Care Team (Late st Contact Info) Description 05/24/2025 2:00 PM CDT Office Visit [facility] - DOCUMENTATION DESIGNER [address], [facility] [address] [place] [address] Aye Dao MD [address] [facility] [address] [place] [address] documented as of this encounter Visit Diagnoses Not on filedocumented in this encounter Care Teams Comb Winder Relationship Specialty Start Date End Date Casa Encarnacion MD PCP - General 12/12/15 documented as of this encounter
--- OUTSIDE RECORDS SUMMARY | 2024-09-08 20:41 | XMS_ITS | Encounter Summary ---
Author Organization [facility] Health Address [address] [facility] [place] [address] Care Team Providers Care Lobster Fisherman Name Role Phone Casa Encarnacion MD Primary Care Provider [phone] Reason for Visit * Reason Onset Date Comments Side Effect 10/20/2018 Update 10/20/2018 ?? Encounter Details Date Type Department Care Team (Late st Contact Info) Description 10/20/2018 Telephone [facility] [address] [place] [address] Aye Dao MD [address] [facility] [address] [place] [address] Side Effect; Update (??) Social History Tobacco Use Types Packs/Day Years [...] Encounter - Marilin Alvarado RN - 10/21/2018 10:48 AM ACCOUNTS RECEIVABLE ANALYST Return call to patient Having trouble with the burning still But is finding the Azo is causing her upset stomach Feels the sores in the mouth have already gone away after mouth wash rinse with Act 2 She is going to stop the Azo She will use sitz bath in cooler water to address the burning Aware to take all 7 days of the ampicillin twice daily with food Patient to call after completing the antibiotics so a plan can be made for test of cure Reassured she may continue to feel the burning for most of this week while the ampicillin clears the UTI Patient aware to call with needs UNTS RECEIVABLE ANALYST * Telephone Encounter - Elisa Anne - 10/21/2018 9:05 AM CST Pt states she was to call back today if she had any problems. States nothing new or worse, she's just not any better. Call back # [phone] UNTS RECEIVABLE ANALYST * Telephone Encounter - Rudi Finley Che, MD - 10/20/2018 4:04 PM CST It looks like she just started ampicillin yesterday. UNTS RECEIVABLE ANALYST * Telephone Encounter - Marilin Alvarado RN - 10/20/2018 3:21 PM ACCOUNTS RECEIVABLE ANALYST Sores in her mouth, on her gum as a side effect of the ampicillin She also reports burning in her vagina She does have 100 mg Azo at home that says to take two tablets at one time She did get some relief from the burning when she took these Asked that she still continue with the ampicillin twice daily To call tomorrow if anything worse than what she describes for today's side effects She will otherwise call on with an update 10/16/18 culture results: TEST STATUS: ?? FINAL ?? SPECIMEN SOURCE: ?? URINE, CLEAN CATCH ?? SPECIMEN QUALITY: ??ADEQUATE ?? RESULT: ?Greater than 100,000 CFU/mL of Enterococcus species ? Enterococcus sp. ? INT ?? LEO ?AMPICILLIN ? S ? <=2 ?NITROFURANTOIN ? I ? 64 ?VANCOMYCIN ? S ? <=0.5 UNTS RECEIVABLE ANALYST * Telephone Encounter - Celena Joel - 10/20/2018 12:26 PM CST Pt called in stating that she is having side effects from the ampicillin 500mg that Dr Zhao put her on. Pt callback# [phone] UNTS RECEIVABLE ANALYST documented in this encounter Plan of Treatment Upcoming Encounters Date Type Department Care Team (Late st Contact Info) Description 05/24/2025 2:00 PM CDT Office Visit [facility] - ASSOCIATE DIRECTOR OF SALES [address] [facility] [address] [place] [address] Aye Dao MD [address] [facility] [address] [place] [address] documented as of this encounter Visit Diagnoses Not on filedocumented in this encounter Care Teams Lobster Fisherman Relationship Specialty Start Date End Date Casa Encarnacion MD PCP - General 12/12/15 documented as of this encounter
--- OUTSIDE RECORDS SUMMARY | 2024-09-08 20:41 | XMS_ITS | Encounter Summary ---
Author Organization [facility] Health Address [address] [facility] [place] [address] Care Team Providers Care Bell Attendant Name Role Phone Casa Encarnacion MD Primary Care Provider [phone] Reason for Visit * Reason Onset Date Comments UTI 10/19/2018 Encounter Details Date Type Department Care Team (Late st Contact Info) Description 10/19/2018 Telephone [facility] [address] [place], [place] [id number] Aye Dao MD [address] [address] UTI Social History Tobacco Use [...] Telephone Encounter - Aye Zhao MD - 10/19/2018 9:31 AM CST Talked with patient informed her of UTI. Script for Ampicillin 500 mg twice daily sent to her pharmacy. To let me know if this does not help. NER SPRAYER documented in this encounter Plan of Treatment Upcoming Encounters Date Type Department Care Team (Late st Contact Info) Description 05/24/2025 2:00 PM CDT Office Visit [facility] - SIDE PANEL PADDER [address], [facility] 200 [place] [address] Aye Dao MD [address] [facility] [address] [place] [address] documented as of this encounter Visit Diagnoses Diagnosis Acute cystitis without hematuria- Primary Acute cystitis documented in this encounter Care Teams Bell Attendant Relationship Specialty Start Date End Date Casa Encarnacion MD PCP - General 12/12/15 documented as of this encounter
--- OUTSIDE RECORDS SUMMARY | 2024-09-08 20:41 | XMS_ITS | Encounter Summary ---
Author Organization [facility] Health Address [address] [facility] [place] [address] Care Team Providers Care Steward/Stewardess Deck Name Role Phone Casa Encarnacion MD Primary Care Provider [phone] Reason for Visit * Reason Onset Date Comments Med Question 09/28/2018 Encounter Details Date Type Department Care Team (Late st Contact Info) Description 09/28/2018 Telephone [facility] [address] [place] [address] Aye Dao MD [address] [address] Med Question Social History Tobacco [...] Telephone Encounter - Marilin Alvarado RN - 09/28/2018 11:24 AM CORROSION ENGINEER Finished the diflucan, things still not great Itching and discomfort Offered a Friday appointment per her request 10/07/18 at 10:50 am Reminder mailed Agreeable For now will continue Crisco use daily OSION ENGINEER * Telephone Encounter - Elisa Anne - 09/28/2018 9:21 AM CST Pt wants to talk with someone re the batsheva and also states she's not feeling very well. Call back # [phone] OSION ENGINEER documented in this encounter Plan of Treatment Upcoming Encounters Date Type Department Care Team (Late st Contact Info) Description 05/24/2025 2:00 PM CDT Office Visit [facility] - HARP REPAIRER [address] [facility] 200 [place] [address] Aye Dao MD [address] [facility] [address] [place] [address] documented as of this encounter Visit Diagnoses Not on filedocumented in this encounter Care Teams Steward/Stewardess Deck Relationship Specialty Start Date End Date Casa Encarnacion MD PCP - General 12/12/15 documented as of this encounter
--- OUTSIDE RECORDS SUMMARY | 2024-09-08 20:41 | XMS_ITS | Encounter Summary ---
Author Organization [facility] Health Address [address] [facility] [place] [address] Care Team Providers Care Teletype Clerk Name Role Phone Casa Encarnacion MD Primary Care Provider [phone] Reason for Visit * Reason Onset Date Comments Patient Requested Call 10/05/2018 Encounter Details Date Type Department Care Team (Late st Contact Info) Description 10/05/2018 Telephone [facility] [address] [place] [address] Aye Dao MD [address] [facility] [address] [place] [address] Patient Requested Call Social History [...] Telephone Encounter - Marilin Alvarado RN - 10/06/2018 9:21 AM ANHYDROUS AMMONIA PRODUCTION SUPERVISOR Requests change in appointment Cancel 10/[address] Leonard 10/13/18 at 10:30 am DROUS AMMONIA PRODUCTION SUPERVISOR * Telephone Encounter - Dominique Dimas - 10/05/2018 11:32 AM CST Pt would like a cb from a nurse, would not specify what it was in regards to. CB# [phone] DROUS AMMONIA PRODUCTION SUPERVISOR documented in this encounter Plan of Treatment Upcoming Encounters Date Type Department Care Team (Late st Contact Info) Description 05/24/2025 2:00 PM CDT Office Visit [facility] - HOTEL STAFF MEMBER [address] [facility] 200 [place] [address] Aye Dao MD [address] [facility] [address] [place] [address] documented as of this encounter Visit Diagnoses Not on filedocumented in this encounter Care Teams Teletype Clerk Relationship Specialty Start Date End Date Casa Encarnacion MD PCP - General 12/12/15 documented as of this encounter
--- OUTSIDE RECORDS SUMMARY | 2024-09-08 20:41 | XMS_ITS | Encounter Summary ---
Author Organization [facility] Health Address [address] [place] [address] Care Team Providers Care Framing Manager Name Role Phone Casa Encarnacion MD Primary Care Provider [phone] Reason for Visit * Reason Onset Date Comments Results 10/30/2018 Encounter Details Date Type Department Care Team (Late st Contact Info) Description 10/30/2018 Telephone [facility] [address] [facility] [address] [place] [address] Aye Dao MD [address] [facility] [address] [place] [address] Results Social History Tobacco Use Types [...] Telephone Encounter - Marilin Alvarado RN - 10/30/2018 2:43 PM DESK REPORTER Return call to patient Notified her of the Dr Leonard reply Patient agreeable aware to continue the sitz baths and crisco If symptoms return will need another urine culture before any antibiotic or any fluconazole given Verbalizes understanding REPORTER * Telephone Encounter - Aye Leonard MD - 10/30/2018 8:43 AM CST Urine culture is negative. Had told patient and her daughter, that if symptoms persist into next week, will need to recheck another culture. To let us know. REPORTER documented in this encounter Plan of Treatment Upcoming Encounters Date Type Department Care Team (Late st Contact Info) Description 05/24/2025 2:00 PM CDT Office Visit [facility] - VACATION GUIDE [address], [facility] 200 [place] [address] Aye Dao MD [address] [facility] 400 [place] [address] documented as of this encounter Visit Diagnoses Not on filedocumented in this encounter Care Teams Framing Manager Relationship Specialty Start Date End Date Casa Encarnacion MD PCP - General 12/12/15 documented as of this encounter
--- OUTSIDE RECORDS SUMMARY | 2024-09-08 20:41 | XMS_ITS | Encounter Summary ---
Author Organization [facility] Address [address] [place] [address] Care Team Providers Care Director Family Name Role Phone Casa Encarnacion MD Primary Care Provider [phone] Encounter Details Date Type Department Care Team (Late Contact Info) Description 01/21/2018 Orders Only [facility] Obstetrics Gynecology and Women's Health [address] [place], [place] [id number] Bhumika Herrera Social History Tobacco Use Types Packs/Day Years [...] PM CDT Office Visit [facility] - WIRE TWISTING MACHINE OPERATOR [address] [facility] [address] [place] [address] Aye Dao MD [address] [facility] [address] [place] [address] documented as of this encounter Visit Diagnoses Not on filedocumented in this encounter Care Teams Director Family Relationship Specialty Start Date End Date Casa Encarnacion MD PCP - General 12/12/15 documented as of this encounter
--- OUTSIDE RECORDS SUMMARY | 2024-09-08 20:41 | XMS_ITS | Encounter Summary ---
Author Organization [facility] Address [facility] [facility] [place] [address] [place] [address] Care Team Providers Care Medical Payment Poster Name Role Phone Casa Encarnacion MD Primary Care Provider [phone] Encounter Details Date Type Department Care Team (Latest Contact Info) Description 01/15/2024 Travel Social History Tobacco Use Types Packs/Day [...] on filedocumented in this encounter Care Teams Medical Payment Poster Relationship Specialty Start Date End Date Casa Encarnacion MD [address] [place] [address] PCP - General INTERNAL MEDICINE 03/16/19 documented as of this encounter
--- OUTSIDE RECORDS SUMMARY | 2024-09-08 20:42 | XMS_ITS | Encounter Summary ---
Author Organization [facility] Address [address] [place] [address]. [place] [address] [place] [address] Care Team Providers Care Human Resources Temp Name Role Phone Unavailable Primary Care Provider Unavailabl e Encounter Details Date Type Department Care Team (Late st Contact Info) Description 06/10/2014 Abstract [facility] [address] [place] [address] Tyesha Salazar MD [address] [place] [address] Social History Tobacco Use Types Packs/Day Years Used Date Smoking Tobacco: Never Comments Unknown Sex and Gender Information Value Date Recorded Sex Assigned at Not on file Legal Sex Female 11:02 PM CDT Gender Identity Not on file Sexual Orientation Not on file documented as of this encounter Plan of Treatment Not on file documented as of this encounter Visit Diagnoses Diagnosis Examination Unspecified examination documented in this encounter
--- OUTSIDE RECORDS SUMMARY | 2024-09-08 20:42 | XMS_ITS | Encounter Summary ---
Author Organization [facility] Address [address] [place] [address]. [place] [address] [place] [address] Care Team Providers Care Single End Sewer Name Role Phone Unavailable Primary Care Provider Unavailabl e Encounter Details Date Type Department Care Team (Late st Contact Info) Description 01/16/2000 Abstract [facility] CONVERSION [address] [place] [address] , Generic Conversion, Social History Tobacco Use Types Packs/Day Years Used Date Smoking Tobacco: Never Assessed Comments Unknown Sex and Gender Information Value Date Recorded Sex Assigned at Not on file Legal Sex Female 11:02 PM CDT Gender Identity Not on file Sexual Orientation Not on file documented as of this encounter Plan of Treatment Not on file documented as of this encounter Visit Diagnoses Not on filedocumented in this encounter
--- OUTSIDE RECORDS SUMMARY | 2024-09-08 20:42 | XMS_ITS | Encounter Summary ---
Author Organization [facility] Address [address] [place] [address]. [place] [address] [place] [address] Care Team Providers Care Acoustical Material Worker Name Role Phone Casa Encarnacion MD Primary Care Provider Reason for Visit * Auth/Cert Specialty Diagnoses / Procedures Referred By Rosalva t Referred To Contact Diagnoses H25.9 Procedures REMV CATARACT EXTRACAP,INSERT LENS EXTRACTION CATARACT right EYE WITH LENS IMPLANT Referral ID Status Reason Start Date Expiration Date Visits Re quested Visits Authorized [id number] 1 1 Encounter Details Date Type Department Care Team (Latest Contact Info) Description 12/24/2023 10:59 AM CDT - 12/24/2023 12:45 PM CDT Hospital Encounter [facility] [place] [address] Catherine Newman MD [address] [place], [place] [id number] Discharge Disposition: Home or Self Care (Routine [...] Sign Reading Time Taken Comments Blood Pressure 151/73 12/24/2023 12:19 PM CDT Pulse 64 12/24/2023 12:19 PM CDT Temperature 36.7 ??C (98 ??F) 12/24/2023 12:19 PM CDT Respiratory Rate 16 12/24/2023 12:19 PM CDT Oxygen Saturation 99% 12/24/2023 12:19 PM CDT Inhaled Oxygen Concentration - - Weight 63.5 kg (140 lb) 12/18/2023 12:28 PM CDT Height 167.6 cm (5' 6 ) 12/18/2023 12:28 PM CDT Body Mass Index 22.6 12/18/2023 12:28 PM CDT documented in this encounter Functional Status [...] Mejia RN Active documented in this encounter Medications at Time [...] times daily as needed for Anxiety. 06/16/2009 cranberry 450 MG Tab tablet Take 1 [...] tablet (1,000 mcg total) by mouth daily. Multiple Vitamins-Minerals (ICAPS AREDS 2) Cap Take 2 tablets by mouth daily. 4 psyllium 51.7 % packet Take 1 packet by mouth nightly at bedtime. 4 documented as of this encounter H&P Notes * Catherine Newman MD - 12/24/2023 11:33 AM CDT HISTORY AND PHYSICAL INTERVAL NOTE: [...] during recuperation were discussed with the patient/family/personal in home sales representative. Reasonable alternatives to the patient's proposed procedure/surgery including benefits, risks, and sideeffects related to the alternatives and the risks related to not receiving the proposed care were also discussed with the patient/family/personal in home sales representative. Questions were answered and the patient/family/personal in home sales representative verbalized understanding and desires to proceed. Source Note - [facility] - 12/24/2023 12:00 AM CDT documented in this encounter OR Notes * Brief Op Note - Catherine Newman MD - 12/24/2023 12:19 PM CDT Patient: Luanne Gotti 1935 [id number] Preoperative Diagnosis: Visually significant cataract Postoperative Diagnosis: Visually significant cataract Procedure: Cataract Extraction with Intraocular Lens Placement, RIGHT Eye Surgeon: Catherine Newman MD Fab[employer] Factory Worker: none Anesthesia: Monitor Anesthesia Care Implant: Implant Name Type Inv. Item Serial No. House Father Lot No. LRB No. Used Action TECNIS 1-PIECE IOL [id number] [employer] [facility] [id number] Right 1 Implanted Specimen: none Estimated Blood Loss: minimal Procedure in detail: Please see full operative note for details. Disposition: Patient was taken to the recovery in stable condition. Catherine Newman MD 12/24/2023 12:19 PM documented in this encounter Plan of Treatment Not on file documented as of this encounter Procedures Procedure Name Priority Date/Time Associated Diagnosis Comments REMV CATARACT EXTRACAP,INSERT LENS 12/24/2023 11:55 AM CDT H25.9 documented in this encounter Visit Diagnoses Not on filedocumented in this encounter Administered Medications Inactive Administered Medications - up to 3 most recent administrations Medication Order MAR Action Action Date Dose Rate Site acetaZOLAMIDE ER (DIAMOX) 12 hr capsule 500 mg 500 mg, Oral, Once, 1 dose, On Fri12/24/23 at 1115, Swallow capsule whole or it may be opened and the contents sprinkled on applesauce., Post-Op Given 12/24/2023 12:26 PM CDT 500 mg acetaZOLAMIDE ER (DIAMOX) 500 MG 12 hr capsule 1 dose, Starting on Fri12/24/23 at 1221, Until Fri12/24/23 at 1226, Created by cabinet override Swallow capsule whole or it may be opened and the contents sprinkled on applesauce. lactated ringers infusion at 10 mL/hr, Intravenous, Continuous, Starting on Fri12/24/23 at 1130, Until Fri12/24/23 at 1445, Infuse at TKO rate, Pre-Op Restarted 12/24/2023 12:14 PM CDT Continued by Anesthesia 12/24/2023 12:00 PM CDT 10 mL/hr New Bag 12/24/2023 11:30 AM CDT 10 mL/hr moxifloxacin (VIGAMOX) 0.5 % ophthalmic solution 1 drop 1 drop, Right Eye, Every 10 min, 2 doses, First dose on Fri12/24/23 at 1130, Last dose on Fri12/24/23 at 1140, Instill in operative eye, Pre-Op Given 12/24/2023 11:36 AM CDT 1 drop Given 12/24/2023 11:26 AM CDT 1 drop moxifloxacin (VIGAMOX) 0.5 % ophthalmic solution 1 dose, Starting on Fri12/24/23 at 1102, Until Fri12/24/23 at 1126, Created by cabinet override phenylephrine (MYDFRIN) 2.5 % ophthalmic solution 1 drop 1 drop, Right Eye, Every 10 min, 2 doses, First dose on Fri12/24/23 at 1130, Last dose on Fri12/24/23 at 1140, Instill in operative eye, Pre-Op Given 12/24/2023 11:36 AM CDT 1 drop Given 12/24/2023 11:26 AM CDT 1 drop phenylephrine (MYDFRIN) 2.5 % ophthalmic solution 1 dose, Starting on Fri12/24/23 at 1102, Until Fri12/24/23 at 1126, Created by cabinet override proparacaine (ALCAINE) 0.5 % ophthalmic solution 1 drop 1 drop, Right Eye, Every 10 min, 2 doses, First dose on Fri12/24/23 at 1130, Last dose on Fri12/24/23 at 1140, In operative eye, Pre-Op Given 12/24/2023 11:36 AM CDT 1 drop Given 12/24/2023 11:26 AM CDT 1 drop proparacaine (ALCAINE) 0.5 % ophthalmic solution 1 dose, Starting on Fri12/24/23 at 1102, Until Fri12/24/23 at 1126, Created by cabinet override tropicamide (MYDRIACYL) 1 % ophthalmic solution 1 drop 1 drop, Right Eye, Every 10 min, 2 doses, First dose on Fri12/24/23 at 1130, Last dose on Fri12/24/23 at 1140, Instill in operative eye, Pre-Op Given 12/24/2023 11:36 AM CDT 1 drop Given 12/24/2023 11:26 AM CDT 1 drop tropicamide (MYDRIACYL) 1 % ophthalmic solution 1 dose, Starting on Fri12/24/23 at 1102, Until Fri12/24/23 at 1126, Created by cabinet override documented in this encounter Active and Recently Administered Medications Times are shown in CDT. Scheduled Medication Order 12/22/2023 12/23/2023 12/24/2023 acetaZOLAMIDE ER (DIAMOX) 12 hr capsule 500 mg (COMPLETED) 500 mg, Oral, Once, 1 dose, On Fri12/24/23 at 1115, Swallow capsule whole or it may be opened and the contents sprinkled on applesauce., Post-Op 1226 (Given - Provid er: Merle Elizabeth RN) moxifloxacin (VIGAMOX) 0.5 % ophthalmic solution 1 drop (COMPLETED) 1 drop, Right Eye, Every 10 min, 2 doses, First dose on Fri12/24/23 at 1130, Last dose on Fri12/24/23 at 1140, Instill in operative eye, Pre-Op 1126 (Given - Provid er: Mamta Guido RN)1136 (Given - Provider: Mamta Guido RN) phenylephrine (MYDFRIN) 2.5 % ophthalmic solution 1 drop (COMPLETED) 1 drop, Right Eye, Every 10 min, 2 doses, First dose on Fri12/24/23 at 1130, Last dose on Fri12/24/23 at 1140, Instill in operative eye, Pre-Op 1126 (Given - Provid er: Mamta Guido RN)1136 (Given - Provider: Mamta Guido RN) proparacaine (ALCAINE) 0.5 % ophthalmic solution 1 drop (COMPLETED) 1 drop, Right Eye, Every 10 min, 2 doses, First dose on Fri12/24/23 at 1130, Last dose on Fri12/24/23 at 1140, In operative eye, Pre-Op 1126 (Given - Provid er: Mamta Guido RN)1136 (Given - Provider: Mamta Guido RN) tropicamide (MYDRIACYL) 1 % ophthalmic solution 1 drop (COMPLETED) 1 drop, Right Eye, Every 10 min, 2 doses, First dose on Fri12/24/23 at 1130, Last dose on Fri12/24/23 at 1140, Instill in operative eye, Pre-Op 1126 (Given - Provid er: Mamta Guido RN)1136 (Given - Provider: Mamta Guido RN) Continuous Medication Order 12/22/2023 12/23/2023 12/24/2023 lactated ringers infusion at 10 mL/hr, Intravenous, Continuous, Starting on Fri12/24/23 at 1130, Until Fri12/24/23 at 1445, Infuse at TKO rate, Pre-Op 1130 (New Bag - Prov ider: Mamta Guido RN)1200 (Continued by Anesthesia - Provider: Sofia Porter CRNA)1213 (Paused - Provider: Sofia Porter CRNA - Comment: Switch to gravity)1214 (Restarted - Provider: Sofia Porter CRNA)1223 (Infusion Stop Time - Provider: Merle Elizabeth RN) PRN Medication Order 12/22/2023 12/23/2023 12/24/2023 lidocaine (PF) (XYLOCAINE) 1 % injection (CANCELED) As needed, Starting on Fri12/24/23 at 1211, Until Fri12/24/23 at 1218, Intra-Op 1211 (Given - Provid er: Catherine Newman MD) tetracaine 0.5 % ophthalmic solution (CANCELED) As needed, Starting on Fri12/24/23 at 1211, Until Fri12/24/23 at 1218, Intra-Op 1211 (Given - Provid er: Terri Recio RN) documented in this encounter Care Teams Acoustical Material Worker Relationship Specialty Start Date End Date Casa Encarnacion MD [address] [place] [address] PCP - General INTERNAL MEDICINE 03/16/19 documented as of this encounter
--- OUTSIDE RECORDS SUMMARY | 2024-09-08 20:42 | XMS_ITS | Encounter Summary ---
Author Organization [facility] Address [address] [place] [address]. [place] [address] [place] [address] Care Team Providers Care Mineralogy Professor Name Role Phone Unavailable Primary Care Provider Unavailabl e Encounter Details Date Type Department Care Team (Late st Contact Info) Description 06/22/1999 Abstract [facility] CONVERSION [address] [place] [address] , Generic Conversion, Social History [...]
--- OUTSIDE RECORDS SUMMARY | 2024-09-08 20:42 | XMS_ITS | Encounter Summary ---
Author Organization [facility] Address [address] [place] [address]. [place] [address] [place] [address] Care Team Providers Care Receptionist Secretary Name Role Phone Unavailable Primary Care Provider Unavailabl e Encounter Details Date Type Department Care Team (Late st Contact Info) Description 06/07/2004 Abstract [facility] CONVERSION [address] [address] [place] [address] [place] [phone] Social History Tobacco Use Types Packs/Day Years [...]
--- OUTSIDE RECORDS SUMMARY | 2024-09-08 20:42 | XMS_ITS | Encounter Summary ---
Author Organization [facility] Address [address] [place] [address]. [place] [address] [place] [address] Care Team Providers Care Windows Server Engineer Name Role Phone Unavailable Primary Care Provider Unavailabl e Encounter Details Date Type Department Care Team (Late st Contact Info) Description 04/07/1995 Abstract [facility] CONVERSION [address] [place] [address] , Generic Conversion, Social History [...]
--- OUTSIDE RECORDS SUMMARY | 2024-09-08 20:42 | XMS_ITS | Encounter Summary ---
Author Organization [facility] Address [address] [place] [address]. [place] [address] [place] [address] Care Team Providers Care Machine Iii Coremaker Name Role Phone Unavailable Primary Care Provider Unavailabl e Encounter Details Date Type Department Care Team (Late st Contact Info) Description 02/11/2014 Abstract [facility] CON[facility] [address] [place] [address] Tyesha Salazar MD [address] [place] [address] Social History Tobacco Use Types [...] as of this encounter Visit Diagnoses Diagnosis Leukorrhea Leukorrhea, not specified as infective documented in this encounter
--- OUTSIDE RECORDS SUMMARY | 2024-09-08 20:42 | XMS_ITS | Encounter Summary ---
Author Organization [facility] Address [address] [place] [address]. [place] [address] [place] [address] Care Team Providers Care Guzzler Builder Name Role Phone Unavailable Primary Care Provider Unavailabl e Encounter Details Date Type Department Care Team (Late st Contact Info) Description 08/23/2009 Abstract [facility] [address] [place] [address] , Ayleen Evangelista MD Social History Tobacco Use Types Packs/Day Years [...] Procedure Name Priority Date/Time Associated Diagnosis Comments EXTERNAL EJECTION FRACTION Routine 08/23/2009 12:00 AM ENVIRONMENTAL FIELD OFFICE MANAGER documented in this encounter Results * EXTERNAL EJECTION FRACTION (08/23/2009 12:00 AM ENVIRONMENTAL FIELD OFFICE MANAGER) EJECTION FRACTION 78.1 [facility] Comment: The planar and G-SPECT MUGA scans are abnormal. The left ventricular ejection fraction, however, is within normal limits at 78.1%. However, I cannot rule out cavity obliteration involving the distal half of the left ventricle. Clinical and/or echocardiographic correlation would be required. Anatomical Region Laterality Modality Other 08/23/2009 08/23/2009 Narrative 08/23/2009 12:00 AM ENVIRONMENTAL FIELD OFFICE MANAGER Ryan PARISI M.D. us Generic Conversion Md SMITH OTHER Final R esult documented in this encounter Visit Diagnoses Not on filedocumented in this encounter
--- OUTSIDE RECORDS SUMMARY | 2024-09-08 20:42 | XMS_ITS | Encounter Summary ---
Author Organization [facility] Address [address] [place] [address]. [place], [place] [id number] [place] [id number] Care Team Providers Care Home Appliance Tech Name Role Phone Kiel Hadley MD Primary Care Provider [phone] Reason for Referral * (Routine) - Canceled Specialty Diagnoses / Procedures Referred By Contac t Referred To Contact Procedures ONLINE HEALTH AND FITNESS COACH eval and treat [facility] Inpatient Medical Oncology [address] [place] [address] Phone: tel: Referral ID Status Reason Start Date Expiration Date V isits Requested Visits Authorized [id number] Canceled 01/28/2020 02/27/2021 1 1 * (Routine) - Canceled Specialty Diagnoses / Procedures Referred By Contac t Referred To Contact Procedures OT Eval and Treat [facility] Inpatient Medical Oncology [address] [place] [address] Phone: tel: Referral ID Status Reason Start Date Expiration Date V isits Requested Visits Authorized [id number] Canceled 01/28/2020 02/27/2021 1 1 * (Routine) - Canceled Specialty Diagnoses / Procedures Referred By Contac t Referred To Contact Procedures PT Eval and Treat [facility] Medical Oncology [address] [place] [address] Phone: tel: Referral ID Status Reason Start Date Expiration Date V isits Requested Visits Authorized [id number] Canceled 01/28/2020 02/27/2021 1 1 * Imaging (Urgent) - Closed Specialty Diagnoses / Procedures Referred By Contac t Referred To Contact RADIOLOGY Procedures US CAROTID DUPLEX CARLOS Chandra Stewart MD Phone: tel: fax: Referral ID Status Reason Start Date Expiration Date Visits Re quested Visits Authorized [id number] Closed 01/27/2020 02/26/2021 1 1 * Imaging (Urgent) - Closed Specialty Diagnoses / Procedures Referred By Contac t Referred To Contact RADIOLOGY Procedures USE ECHOCARDIOGRAM Chandra Stewart MD Phone: tel: fax: Referral ID Status Reason Start Date Expiration Date Visits Re quested Visits Authorized [id number] Closed 01/27/2020 02/26/2021 1 1 * Imaging (Urgent) - Closed Specialty Diagnoses / Procedures Referred By Contac t Referred To Contact RADIOLOGY Procedures MRI BRAIN WWO CON Humphrey Chapin MD Phone: tel: fax: Referral ID Status Reason Start Date Expiration Date Visits Re quested Visits Authorized [id number] Closed 01/26/2020 02/25/2021 1 1 Reason for Visit * Auth/Cert Specialty Diagnoses / Procedures Referred By Contac t Referred To Contact Diagnoses CONFUSION Procedures GENERAL Referral ID Status Reason Start Date Expiration Date Visits Re quested Visits Authorized [id number] 1 1 Encounter Details Date Type Department Care Team (Latest Contact Info) Description 01/26/2020 4:01 PM CDT - 01/31/2020 3:45 PM CDT Hospital Encounter [facility] Inpatient Medical Oncology [address] [id number] Humphrey Chapin MD [address] [place] [address] Chandra Stewart MD [address] [place] [address] Discharge Disposition: Home or Self Care (Routine [...] on file Sexual Orientation Not on file COVID-19 Exposure Response Date Recorded In the last month, have you been in contact with someone who was confirmed or suspected to have Coronavirus / COVID-19? No / Unsure 01/26/2020 5:11 PM CDT documented as of this encounter Last Filed Vital Signs Vital Sign Reading Time Taken Comments Blood Pressure 118/66 01/31/2020 3:27 PM CDT Pulse 81 01/31/2020 3:27 PM CDT Temperature 36.6 ??C (97.9 ??F) 01/31/2020 3:27 PM CD T Respiratory Rate 18 01/31/2020 11:25 AM CDT Oxygen Saturation 100% 01/31/2020 3:27 PM CDT Inhaled Oxygen Concentration - - Weight 60.8 kg (134 lb 0.6 oz) 01/31/2020 6:03 A M CDT Height 165.1 cm (5' 5 ) 01/26/2020 3:58 PM CDT 5 FT5IN Body Mass Index 22.31 01/26/2020 3:58 PM CDT documented in this encounter Functional Status * Question Answer Date of Assessment Author Status Do you have serious difficulty walking or climbing stairs? No 01/26/2020 5:15 PM CDT Unique Mejia RN Ac tive * Question Answer Date of Assessment Author Status Do you have difficulty dressing or bathing? No 01/26/2020 5:15 PM CDT Unique Mejia R N Active Because of a physical, mental, or emotional condition, do you have difficulty doing errands alone such as visiting a doctor's office or shopping? No 01/26/2020 5:15 PM CDT Unique Mejia RN Act johnathon * RETIRED Are you deaf or do [...] 5:15 PM DANNAT Unique Mejia RN Active * Because of a physical, mental, or emotional condition, do you have difficulty doing errands alone such as visiting a doctor's office or shopping? Answer Date of Assessment Author Status No 01/26/2020 5:15 PM CDT Unique Mejia RN Active documented as of this encounter Mental Status * Question Answer Entry Date Author Status Because of a physical, mental, or emotional condition, do you have serious difficulty concentrating, remembering, or making decisions? No 01/26/2020 5:15 PM CDT Unique Mejia R N Active * Because of a physical, mental, or emotional condition, do you have serious difficulty concentrating, remembering, or making decisions? Answer Entry Date Author Status No 01/26/2020 5:15 PM CDT Unique Mejia RN Active documented in this encounter Discharge Summaries * Chandra Stewart MD - 01/31/2020 10:44 AM CDT [facility] Hospitalist Discharge Summary Patient ID: Brenda Gotti [id number] 84-year-old 1935 Admit date: 01/26/2020 Discharge date: 01/31/2020 Primary Care Physician: KIEL HADLEY MD Admitting Physician: Humphrey Chapin MD Discharge Physician: CHANDRA STEWART MD Consulting Physician: [facility] Stroke neurology Reason for Admission: AMS Discharge Diagnoses: Lacunar stroke, HPL, UTI Discharged Condition: good Discharge Meds: Medication List START taking these medications amoxicillin 500 MG capsule Commonly known as: AMOXIL Take 1 capsule (500 mg total) by mouth every 12 (twelve) hours for 2 days. aspirin 81 MG chewable tablet Chew 1 tablet (81 mg total) by mouth daily. atorvastatin 40 MG tablet Commonly known as: LIPITOR Take 1 tablet (40 mg total) by mouth nightly at bedtime. cephALEXin 500 MG capsule Commonly known as: KEFLEX Take 1 capsule (500 mg total) by mouth 2 (two) times daily for 3 days. lisinopril 2.5 MG tablet Commonly known as: PRINIVIL Take 1 tablet (2.5 mg total) by mouth daily. CONTINUE taking these medications acetaminophen 500 MG tablet Commonly known as: TYLENOL bismuth subsalicylate 525 MG/15ML Susp suspension Commonly known as: PEPTO BISMOL MAX STRENGTH cetirizine 10 MG tablet Commonly known as: ZyrTEC chlordiazePOXIDE 5 MG capsule Commonly known as: LIBRIUM cranberry 450 MG Tabs tablet docusate sodium 100 MG capsule Commonly known as: COLACE gabapentin 300 MG capsule Commonly known as: NEURONTIN ICaps Areds 2 Caps loperamide 2 MG capsule Commonly known as: IMODIUM metoprolol tartrate 25 MG tablet Commonly known as: LOPRESSOR mirtazapine 30 MG tablet Commonly known as: REMERON psyllium 51.7 % packet Commonly known as: METAMUCIL STOP taking these medications ibuprofen 200 MG tablet Commonly known as: MOTRIN Where to Get Your Medications You can get these medications from any pharmacy Bring a paper prescription for each of these medications ?? amoxicillin 500 MG capsule ?? aspirin 81 MG chewable tablet ?? atorvastatin 40 MG tablet ?? cephALEXin 500 MG capsule ?? lisinopril 2.5 MG tablet HPI and Hospital Course: Ms. Gotti is a 84 year old female patietn with Hx of HTN and OA admitted to the hospital with aphasia and AMS: ?? 1. Acute lacunar CVA: MRI noted which is significant for a lacunar infarct. Brenda`s symptoms have nocompletely resolved. Case discussed with neurology - that small lacunar CVA might be an incidental finding. However, given the stroke will have to medical optimize patient. Her A1c is 5, LDL 147, ECHO and carotid dopplers WNL. Start Atorvastatin and ASA 81 mg. Follow up with neurology as outpatient. ?? 2. Hx of HTN: Continue home BB. ?? 3. HFpEF 70% with LVH. Continue Metoprolol. Will benefit from ACEI or ARB. Low dose Lisinopril started. Recommend getting a BMP in the next 3-7 days to follow up on K and Cr outpatient. 4. UTI: UA shows several WBC. Cx growing enterococcus faecalis cerda sensitive - change Abx to Amoxicillin. Significant Diagnostic Studies: Lab Results Component Value Date CHOL 236 01/27/2020 TRI 101 01/27/2020 HDL 69 01/27/2020 LDL 147 01/27/2020 NA 141 01/31/2020 K 3.1 (L) 01/31/2020 CL 110 (H) 01/31/2020 CO2 25.3 01/31/2020 BUN 23 (H) 01/31/2020 CR 0.81 01/31/2020 CA 9.1 01/31/2020 GLU 94 01/31/2020 AGAP 5.7 01/31/2020 WBC 9.6 01/31/2020 HGB 12.0 01/31/2020 PLT 296 01/31/2020 HGBA1C 5.1 01/27/2020 No results found for: INR Mri Brain Wwo Con Result Date: 01/26/2020 Exam: MRI brain No comparison INDICATION: Recent confusion and altered level of consciousness. TECHNIQUE: Precontrast and postcontrast imaging with 10 cc intravenous Dotarem. FINDINGS: Moderate diffuse volume loss. No mass effect, extra-axial fluid collection, or ventricular dilation. No findings for hemorrhage on the gradient images. Moderate focal and confluent deep white matter hyperintensity on FLAIR is probably small vessel disease. Some minimal patchy FLAIR hyperintensities within the marina. On the diffusion images, there is a single, small focus of diffusion restriction in the deep white matter of the left temporal occipital region. This measures about 4 mm in size. This is low ADC signal and would be consistent with an acute lacunar stroke. Diffusion images are otherwise normal. Normal flow voids in the basilar and internal carotid arteries. Diminutive left vertebral artery. Normal orbits and paranasal sinuses. Normal postcontrast imaging. IMPRESSION: 1. Acute lacunar stroke in the deep white matter of the left temporal occipital region.2. Atrophy and probable small vessel disease. Interpreted By: Garth Mujica MD, 01/26/2020 6:30 PM Use Echocardiogram Result Date: 01/27/2020 Echocardiography Report Pat.Name: BRENDA GOTTI Pat.ID: [id number] St.Date: 01/27/2020 Refer.MD: CHANDRA STEWART Exam Time: 2:38:00 PM Study Type:ECHO WITH CARDIAC DOPPLER COMP Height: 165cm Weight: 58.1kg BSA: 1.64 m2 Age: 6 1935,84Y Sex: FEMALE HR: 75 bpm Sonogrphr: Bolivar Iqbal RDCS Pat. Stat.: Inpatient Room: 830 CPT - 4: [id number] Reason for Study: TIA Procedures: 2D, M-mode, Doppler, Color Flow, Portable, The study quality is technically adequate. Race: ++++++++++++++++++++++++++++++++++++ SUMMARY: ++++++++++++++++++++++++++++++++++++ The left ventricular size is normal. The leftventricular systolic function is hyperdynamic. Estimated left ventricular ejection fraction is greater than 70%. Moderate concentric left ventricular hypertrophy. Left ventricular relaxation is impaired. The right ventricle is normal. The left atrial size is moderately enlarged. Ascending aorta is mildly dilated--4cm. Probable mild to moderate aortic regurgitation. Trace tricuspid regurgitation. ++++++++++++++++++++++++++++++++++++ FINDINGS: ++++++++++++++++++++++++++++++++++++ LV: The left ventricular size is normal. The left ventricular systolic function is hyperdynamic. The calculated ejection fraction is 67%. Estimated left ventricular ejection fraction is greater than 70%. Moderate concentric left ventricular hypertrophy. The septal E/e' is indeterminate at 8-15. The lateral E/e' is normal at <8. The average E/e' is indeterminate at 9-12 and EF is > or equal to 50. Left ventricular relaxation is impaired. WM: Wall motion appears normal in all segments. LVOT: The left ventric ular outflow tract size is normal. RV: The right ventricle size is normal. The right ventricular function is normal. LA: The left atrial size is moderately enlarged. RA: Right atrial size is normal. IAS: Atrial septum appears intact. APRIL: No evidence of pericardial effusion. AO: Ascending aorta ismildly dilated. The aortic root measures 2.8 cm. The proximal ascending aorta measures 4cm. PA: Unable to reliably quantitate pulmonary systolic pressure. PVn: Pulmonary veins are not assessable. SVn: Inferior vena cava is normal. Inferior vena cava shows >50% collapse with respiration consistent with normal right atrial pressure. AV: The aortic valve is trileaflet. Mild to moderate aortic regurgitation. Mild calcification of aortic valve leaflets. MV: No evidence of mitral regurgitation. No evidence of mitral stenosis. Mild thickening of mitral valve leaflets. PV: Pulmonic valve not wellvisualized. TV: Structurally normal tricuspid valve. A trace of tricuspid regurgitation. No evidence of tricuspid valve stenosis. ++++++++++++++++++++++++++++++++++++ MEASUREMENTS: +++++++++++++++++++ +++++++++++++++++ DOPPLER LVOT LVOTpkPG 5 mmHg LVOTmnPG 3 mmHg LVOTpkVel 117 cm/s (70-110) LVOT SV60 ml Index 36.6 ml/m2 LVOT TVI 29.8 cm AV Forward Flow AV TVI 28.8 cm AV pkPG 8 mmHg AV pkVel 138cm/s (100-170) Area (TVI) 2.08 cm2 (3-5) Index 1.27 cm2/m2 AV mnVel 89.5 cm/s Area (Juvenal) 1.7 cm2 (3-5) AV mnPG 4 mmHg MV Forward Flow MV DeTm 225 ms MV E/A 1 MVA P1/2t 3.33 cm2 (4-6) MV pkE 68.9 cm/s (60-130) MV P1/2t 66 ms (30-60) MV pkA 69.4 cm/s Lat E' Lat e 10.2 cm/s Lat E/E' Lat E/e 6.8 Med E'Med e 6.31 cm/s Med E/E' Med E/e 10.9 Aortic Valve Aortic Valve Ar 1.27 Aortic Valve Ve 0.85 AV DI Value 1 YESSENIA (VTI) Index Value 1.27 LV Mass 2D Value 126 g LV Mass Zuuve8S Value 76.8 g/m2 Right Ventricle Right Ventricle 17.7 cm/s 2D Left Ventricle LVIDd 3.63 cm (3.6-5.2) LV EF(Bi-Plane) 67.6 % (55-75) LVIDs 2.29 cm (2.3-3.9) LVPW LVPWd 1.17 cm LVPWth 74.4 % LVPWs 2.04 cm Ventricular Septum IVSd 1.03 cm IVSs 1.52 cm Left Atrium LA a-p 3.43 cm (2.8-3.4) Aorta Ao Rtd 2.8 cm (zsc 0.7) Ao Asc 4 cm (zsc 6.5) Index 2.44 cm/m2 LVOT LVOT 1.6 cm Ratios IVS MMODE TA Tricuspid Annul 2.35 cm Signed 01/27/2020 08:21 PM Serena Ibrahim M.D. Us Carotid Duplex Carlos Result Date: 01/27/2020 EXAM: CAROTID ARTERY ULTRASOUND BILATERAL COMPARISON: None INDICATION: Stroke TECHNIQUE: Fisher scale, color doppler, and spectral waveform analysis performed. FINDINGS: Fisher Scale: There is probably some mild intimal thickening in the common carotid arteries. No demonstrable plaque on either side. Antegrade vertebral artery flow bilaterally. Right-sided peak systolic velocities in cm/s: CCA 122, ICA 97, ECA 102, ICA/CCA ratio: 0.8. Left-sided peak systolic velocities in cm/s: CCA 105, ICA 110, ECA 91, ICA/CCA ratio: 1.1. IMPRESSION: 1. No significant plaque formation. 2. Velocity measurements correlate with less than 50% stenosis. Interpreted By: Garth Mujica MD, 01/27/2020 9:23 PM Disposition: Home with family assist Patient Instructions: Activity: As tolerated Diet: Low salt, low fat. KIEL HADLEY MD Signed: CHANDRA STEWART MD 01/31/2020 11:04 AM Time spent in discharging patient ~ 35 mins documented in this encounter Discharge Instructions * Attachments The following attachments cannot be sent through Care Everywhere. * Stroke Discharge Instructions (Bermudian) * Stroke (Bermudian) * Going Home on Blood Thinners (Bermudian) documented in this encounter Medications at Time [...] total) by mouth nightly at bedtime. 09/30/2014 amoxicillin 500 MG capsule Take 1 capsule (500 mg total) by mouth every 12 (twelve) hours for 2 days. 4 capsule 01/31/2020 0 cephALEXin 500 MG capsule Take 1 capsule (500 mg total) by mouth 2 (two) times daily for 3 days. 6 capsule 01/28/2020 0 Multiple Vitamins-Minerals (ICAPS AREDS 2) Cap Take 2 tablets by mouth daily. 4 psyllium 51.7 % packet Take 1 packet by mouth nightly at bedtime. 4 documented as of this encounter Progress Notes * CLYDE Gonzalez - 01/31/2020 12:05 PM CDT OT Treatment Discharge Recommendation: home with assistance 24 hour supervision/assistance OT home health DME equipment recommendation: 2 wheeled walker-per PT Activity Recommendation for artists' booking representative: Up with 1, 2ww 01/31/20 1144 Therapy Visit OT Received On 01/29/20 Reason for admission Pt presenting after being found confused with clothes on backwards. HCT (-)...MRI acute lacunar stroke in the deep white matter of the left temporal occipital region.......PMH: HLD, ablation, HTN, arthritis.......Orders to eval and treat Previous Occupational Therapy Unknown Ordering Provider MD Terry Verified Two Patient Identifiers Yes Patient consents to therapy Yes Acute Inpatient OT Time Calculation OT Start Time 1144 OT Stop Time 1205 OT Time Calculation (min) 21 min Precautions Precautions Yes/No Yes General Precautions Fall Risk;Bed Alarm;Chair Alarm Instructed on Precautions Yes;Verbalizes understanding;Needs reinforcement and education Other tele, cognition Subjective Subjective RN okayed session. Pt sitting in bedside chair upon arrival, agreeable to therapy session. Pain Pain Patient does not offer or c/o pain Activity Tolerance Activity Tolerance Comments Improved; limited by impaired cognition Cognition Overall Cognitive Status Impaired Arousal/Alertness Appropriate responses to stimuli Attention Span Appears intact Orientation Level Oriented to person;Oriented to time;Disoriented to situation Following Commands Follows multistep commands with repetition Safety Judgment Decreased awareness of need for safety Awareness of Errors Assistance required to identify errors made Deficits Decreased awareness of deficits Problem Solving Assistance required to identify errors made Motor Planning Appears intact Perseveration Not present Initiation Cues to initiate tasks ADL Grooming Assistance Stand by;Standing at sink Grooming Deficit Wash/dry hands;Supervision/safety;Standing with assistive device Grooming Comment safe placement of 2ww at sink LE Dressing Assistance Stand by;Sitting in chair LE Dressing Deficit Don/doff R shoe;Don/doff L shoe;Tie shoes Toileting Assistance Stand by Toileting Deficit Perineal hygiene;Clothing management down;Clothing management up;Grab bar use;Supervision/safety Bed Mobility Other (Comment) not tested; sitting in chair upon arrival and remained there at end of session. Functional Transfers Sit to Stand SBA/supervision Toilet Transfers Supervision;Grab bars Functional Mobility Pt completed functional mobility with no AD and CGA, no LOB noted but unsteady.Pt completed mobility with use of 2ww and CGA/SBA, no LOB. Simulating trails of household distances. Balance Sitting - Static Independent Sitting - Dynamic Independent Standing - Static Modified independence;Independent;Support of both upper extremities Standing - Dynamic CGA;SBA;Support of one upper extremity;Support of both upper extremities;Inside base of support;Outside base of support Other (Comment) No LOB Modified Finley Score Interval Daily Score 0-6 3 Moderate disability, requiring some help, but able to walk without assistance Recommendation OT Recommendation Home with assistance;24 hour supervision/assist OT Equipment Recommended 2 Wheeled walker Plan OT Treatment/Intervention Self-care training;Therapeutic exercises;Therapeutic activities;Neuromuscular re-education;Safety;Functional activity;Continued evaluation;Patient/family training Progress Improving as expected OT Frequency 5 times/week OT - Next Appointment 01/31/20 If this is the last treatment note, it will serve as the discharge summary Yes End of Session Safety End of Session Safety Chair alarm set/activated;Call light within reach;Nursing aware of session * Jeremiah Shah PharmD - 01/31/2020 11:49 AM CDT Pharmacy Clinical Services: Stroke Discharge Note Brenda Gotti will be discharged on 01/31/2020. Pharmacy had been consulted to review the patient's chart for medication appropriateness upon discharge for meeting stroke core measures. 1. Antithrombotic therapy: aspirin 81 mg. 2. Statin therapy: atorvastatin 40 mg daily No results found for: LDLD 3. Documented A.Fib/flutter?: No; Anticoagulation therapy: none indicated Stroke measures have been met and medications are appropriate upon discharge. Thank you for the consult. JEREMIAH SHAH PharmD Phone number: [phone] 01/31/2020 11:49 AM * Teressa Connors RN - 01/31/2020 7:29 AM CDT Problem: Reduced risk for falls/injury Goal: Reduced Risk for Falls/Injury Outcome: Progressing Goal: Reduced Risk of Confusion (Acute vs Chronic) Outcome: Progressing Goal: Reduced Risk of Altered Elimination Outcome: Progressing * Chandra Stewart MD - 01/30/2020 1:59 PM CDT Brenda Gotti is a 84-year-old female patient. Patient Active Problem List Diagnosis Date Noted ??? Confusion 01/28/2020 ??? Acute ischemic stroke (CMS/HCC) 01/26/2020 Past Medical History: Diagnosis Date ??? Arthritis ??? Cancer (CMS/HCC) appendix ??? History of blood transfusion ??? Hypertension Current Facility-Administered Medications Medication Dose Route Frequency Provider Last Rate Last Dose ??? acetaminophen (TYLENOL) tablet 650 mg 650 mg Oral Q6H PRN Chandra Stewart MD 650 mg at 01/30/20 0917 ??? amoxicillin (AMOXIL) capsule 500 mg 500 mg Oral 2 times per day Chandra Stewart MD ??? aspirin chewable tablet 81 mg 81 mg Oral Daily Chandra Stewart MD 81 mg at 01/30/20917 ??? atorvastatin (LIPITOR) tablet 40 mg 40 mg Oral Nightly at bedtime Humphrey Chapin MD 40 mg at 01/29/202036 ??? heparin (porcine) injection 5,000 Units 5,000 Units Subcutaneous 2 times per day Chandra Stewart MD5,000 Units at 01/30/20917 ??? lisinopril (PRINIVIL) tablet 2.5 mg 2.5 mg Oral Daily Chandra Stewart MD 2.5 mg at 01/30/20916 ??? metoprolol tartrate (LOPRESSOR) tablet 25 mg 25 mg Oral BID Humphrey Chapin MD 25 mg at 01/30/20916 Allergies Allergen Reactions ??? Seasonal Unknown Sneezing Active Problems: Acute ischemic stroke (CMS/HCC) SNOMED CT(R): ISCHEMIC STROKE Confusion SNOMED CT(R): CONFUSIONAL STATE Brenda's height is 5' 5 (1.651 m) and weight is 60.7 kg (133 lb 13.1 oz). Her oral temperature is 97.3 ??F (36.3 ??C). Her blood pressure is 124/93 (abnormal) and her pulse is 83. Her respiration is 18 and oxygen saturation is 93%. Subjective: Symptoms: No shortness of breath or chest pain. (Patient stable. Continues to have intermittent confusion/delirium. Aphasia resolved.). Objective: General Appearance: Comfortable and in no acute distress. Vital signs: (most recent): Blood pressure (!) 124/93, pulse 83, temperature 97.3 ??F (36.3 ??C), temperature source Oral, resp. rate 18, height 5' 5 (1.651 m), weight 60.7 kg (133 lb 13.1 oz), AeO697 %. No fever. Output: Producing urine and producing stool. HEENT: Normal HEENT exam. Lungs: Normal effort. Breath sounds clear to auscultation. She is not in respiratory distress. No decreased breath sounds. Heart: Normal rate. Regular rhythm. No murmur. Abdomen: Abdomen is soft and non-distended. Bowel sounds are normal. There is no epigastric area tenderness. Assessment: (Ms. Gotti is a 84 year old female patietn with Hx of HTN and OA admitted to the hospital with aphasia and AMS: ?? 1. Acute lacunar CVA: MRI noted which is significant for a lacunar infarct. Brenda`s symptoms have nocompletely resolved. Case discussed with neurology - that small lacunar CVA might be an incidental finding. However, given the stroke will have to medical optimize patient. Her A1c is 5, LDL 147, ECHO and carotid dopplers WNL. Start Atorvastatin and ASA 81 mg. Follow up with neurology as outpatient. ?? 2. Hx of HTN: Continue home BB. ?? 3. HFpEF 70% with LVH. Continue Metoprolol. Will benefit from ACEI or ARB. Low dose Lisinopril started. BMP in AM. ?? 4. UTI: UCx noted - Change ABx to Amoxicillin. Delirium improving - DC sitter and monitor tonight. Plan to DC home in AM. ?? DVT PPX; start SQH Full Code). CHANDRA STEWART MD 01/30/2020 * Chandra Stewart MD - 01/29/2020 2:45 PM CDT Brenda Gotti is a 84-year-old female patient. Patient Active Problem List Diagnosis Date Noted ??? Confusion 01/28/2020 ??? Acute ischemic stroke (CMS/HCC) 01/26/2020 Past Medical History: Diagnosis Date ??? Arthritis ??? Cancer (CMS/HCC) appendix ??? History of blood transfusion ??? Hypertension Current Facility-Administered Medications Medication Dose Route Frequency Provider Last Rate Last Dose ??? acetaminophen (TYLENOL) tablet 650 mg 650 mg Oral Q6H PRN Chandra Stewart MD 650 mg at 01/29/20 0723 ??? aspirin chewable tablet 81 mg 81 mg Oral Daily Chandra Stewart MD 81 mg at 01/29/20 0949 ??? atorvastatin (LIPITOR) tablet 40 mg 40 mg Oral Nightly at bedtime Humphrey Chapin MD 40 mg at 01/28/202022 ??? cefTRIAXone (ROCEPHIN) 1 g in sodium chloride 0.9 % 50 mL IVPB 1 g Intravenous Q24H Chandra Stewart MD 100 mL/hr at 01/29/20 1249 1 g at 01/29/20 1249 ??? heparin (porcine) injection 5,000 Units 5,000 Units Subcutaneous 2 times per day Chandra Stewart MD5,000 Units at 01/29/20 0949 ??? lisinopril (PRINIVIL) tablet 2.5 mg 2.5 mg Oral Daily Chandra Stewart MD 2.5 mg at 01/29/20 0949 ??? metoprolol tartrate (LOPRESSOR) tablet 25 mg 25 mg Oral BID Humphrey Chapin MD 25 mg at 01/29/20948 Allergies Allergen Reactions ??? Seasonal Unknown Sneezing Active Problems: Acute ischemic stroke (CMS/HCC) SNOMED CT(R): ISCHEMIC STROKE Confusion SNOMED CT(R): CONFUSIONAL STATE Brenda's height is 5' 5 (1.651 m) and weight is 58.1 kg (128 lb 1.4 oz). Her oral temperature is 98.1 ??F (36.7 ??C). Her blood pressure is 141/65 and her pulse is 89. Her respiration is 17 and oxygensaturation is 93%. Subjective: Symptoms: No shortness of breath or chest pain. (Patient stable. Continues to have intermittent confusion/delirium. Aphasia resolved.). Objective: General Appearance: Comfortable and in no acute distress. Vital signs: (most recent): Blood pressure 141/65, pulse 89, temperature 98.1 ??F (36.7 ??C), temperature source Oral, resp. rate 17, height 5' 5 (1.651 m), weight 58.1 kg (128 lb 1.4 oz), SpO2 93 %. No fever. Output: Producing urine and producing stool. HEENT: Normal HEENT exam. Lungs: Normal effort. Breath sounds clear to auscultation. She is not in respiratory distress. No decreased breath sounds. Heart: Normal rate. Regular rhythm. No murmur. Abdomen: Abdomen is soft and non-distended. Bowel sounds are normal. There is no epigastric area tenderness. Assessment: (Ms. Gotti is a 84 year old female patietn with Hx of HTN and OA admitted to the hospital with aphasia and AMS: ?? 1. Acute lacunar CVA: MRI noted which is significant for a lacunar infarct. Brenda`s symptoms have nocompletely resolved. Case discussed with neurology - that small lacunar CVA might be an incidental finding. However, given the stroke will have to medical optimize patient. Her A1c is 5, LDL 147, ECHO and carotid dopplers WNL. Start Atorvastatin and ASA 81 mg. Follow up with neurology as outpatient. ?? 2. Hx of HTN: Continue home BB. ?? 3. HFpEF 70% with LVH. Continue Metoprolol. Will benefit from ACEI or ARB. Low dose Lisinopril started. BMP in AM. ?? 4. UTI: UA shows several WBC. Cx growing gamma strep but has not finalized. Ceftriaxone for now andfollow Cx. ?? DVT PPX; start SQH Full Code). CHANDRA STEWART MD 01/29/2020 * Paul Pardo, OT - 01/29/2020 11:20 AM CDT OT Treatment Discharge Recommendation: home with 31/03 assistance Activity Recommendation for artists' booking representative: SBA Assessment: Pt demonstrating progression towards OT goals this date with ADLs and functional transfers. Pt continues to demonstrate decreased safety and cognition limiting her independence with ADLs and safety with functional mobility. Pt would benefit from skilled OT services to increase safety, strength, activity tolerance, and independence with ADLs and functional transfers. 01/29/20 1120 Therapy Visit OT Received On 01/29/20 Reason for admission Pt presenting after being found confused with clothes on backwards. HCT (-)...MRI acute lacunar stroke in the deep white matter of the left temporal occipital region.......PMH: HLD, ablation, HTN, arthritis.......Orders to eval and treat Previous Occupational Therapy Unknown Ordering Provider MD Terry Verified Two Patient Identifiers Yes Patient consents to therapy Yes Acute Inpatient OT Time Calculation OT Start Time 1120 OT Stop Time 1143 OT Time Calculation (min) 23 min Precautions General Precautions Fall Risk;Chair Alarm (1:1 sitter ) Instructed on Precautions Yes;Verbalizes understanding Other tele, cognition Subjective Subjective Pt agreeable totherapy session. Pain Pain No Activity Tolerance Activity Tolerance Comments cognition Cognition Overall Cognitive Status Impaired Orientation Level Oriented X4 Following Commands Follows all commands and directions without difficulty Comments Although alert and oriented x4 Pt with decreased cogniton with confusion, decreaed abilityto sequence activities, and decreased safety all requiring minimal verbal cuing. ADL Grooming Assistance Stand by Bathing Assistance Stand by UE Dressing Assistance Stand by LE Dressing Assistance Stand by Toileting Assistance Stand by Additional Comments Pt completing all ADLs grooming and bathing standing at sink with SBA with redirection. Pt completing toileting and dressing seated on toilet with SBA and minimal verbal cuing forredirection. Pt physically able to complete all ADLs Bed Mobility Supine to Sit Independent Functional Transfers Sit to Stand SBA/supervision Bed to Chair SBA/supervision Toilet Transfers Grab bars;Modified Independent Functional Mobility Pt completing all functional transfers/mobility wit hSBA no LOB but redirectionfor tasks being completed and awareness of her surroundings. Balance Sitting - Static Independent Sitting - Dynamic Independent Standing - Static Independent Standing - Dynamic SBA Other (Comment) no LOB no devices used Coordination Coordination WFL Modified Finley Score Interval Daily Score 0-6 3 Moderate disability, requiring some help, but able to walk without assistance Recommendation OT Recommendation Home with assistance;24 hour supervision/assist OT Equipment Recommended 2 Wheeled walker Plan OT Treatment/Intervention Self-care training;Therapeutic exercises;Therapeutic activities;Neuromuscular re-education;Safety;Functional activity;Continued evaluation;Patient/family training Progress Improving as expected OT Frequency 5 times/week OT - Next Appointment 01/29/20 If this is the last treatment note, it will serve as the discharge summary Yes End of Session Safety End of Session Safety Chair alarm set/activated;Call light within reach;Nursing aware of session;Transfer status education (1:1 sitter present ) * Apolonia Reilly RN - 01/29/2020 9:45 AM CDT Waiting on culture related to UTI. * Petra Servin PTA - 01/29/2020 8:41 AM CDT PT Treatment Discharge Recommendation: home with assistance 24 hour supervision/assistance P/T home health OT home health DME equipment recommendation: 2 wheeled walker Activity Recommendation for artists' booking representative: up with assist of 1 and use of the 2ww 01/29/20 0816 Therapy Visit Ordering Provider MD Terry Subjective RN Ok'd therapy session. Patient was supine in bed upon arrival and sitter present. She is able answer orientation questions but then later states that she isn't in [facility] and some other things that allude to the fact that she is confused. Reason for admission Pt presenting after being found confused with clothes on backwards. HCT (-)...MRI acute lacunar stroke in the deep white matter of the left temporal occipital region.......PMH: HLD, ablation, HTN, arthritis.......Orders to eval and treat Verified Two Patient Identifiers Yes Patient consents to therapy Yes Acute Inpatient PT Time Calculation PT Start Time 0816 PT Stop Time 0841 PT Time Calculation (min) 25 min Precautions General Precautions Fall Risk;Chair Alarm Instructed on Precautions Yes;Verbalizes understanding;Needs reinforcement and education Other tele, cognition Pain Pain Patient does not offer or c/o pain Activity Tolerance Activity Tolerance Comments She is limited by cognition and acute deconditioning. Cognition Overall Cognitive Status Impaired Arousal/Alertness Appropriate responses to stimuli Attention Span Appears intact Orientation Level Oriented X4 Following Commands Follows one step commands without difficulty Safety Judgment Decreased awareness of need for safety Awareness of Errors Assistance required to identify errors made Deficits Decreased awareness of deficits Bed Mobility Supine to Sit Independent TRANSFERS Sit to Stand SBA/supervision Bed to Chair SBA/supervision Other (Comment) with use of the 2ww Gait Gait Assistance SBA/supervision;Contact guard assist;With gait belt Assistive Device 2 Wheeled walker;None Ambulation Distance (Feet) 175 feet with the 2ww +stairs and another 100 feet without a device Other (Comment) Patient was more unsteady without the 2ww today. She had a narrow base of support but wasn't scissoring today. She veers a little side/side and gets distracted easily in the hallway. She was more steady with use of the 2ww and recommend one for home use. Stairs Stair Management Assistance Contact guard assist Stair Management Technique One rail L;Alternating pattern Number of Stairs 3 Other (Comment) alternating pattern. Balance Sitting - Static Independent Sitting - Dynamic Independent Standing - Static SBA Standing - Dynamic SBA;CGA;Support of both upper extremities Exercises Standing LE Exercise Patient performed BLE exercises in standing with use of the 2ww for balance - marching, hip abduction, mini squats, and calf raises. Modified Finley Score Interval Daily Score 0-6 3 Moderate disability, requiring some help, but able to walk without assistance Recommendation PT Recommendation Home with assistance;Home PT;Home OT PT Equipment Recommended 2 Wheeled walker Plan PT Treatments/Interventions Gait Training;Manual Therapy;Therapeutic Exercises;Therapeutic Activities;Neuromuscular re-education;Patient/family training Progress Progressing toward goals PT Frequency 5 times/week PT - Next Appointment 01/29/20 If this is the last treatment note,it will serve as the discharge summary Yes End of Session Safety End of Session Safety Call light within reach;Nursing aware of session;Transfer status education;Chair alarm set/activated End of Session Comment sitter present. Patient sitting up in recliner - RN notified that patient will need a 2ww at discharge * Nikky Almaraz RN - 01/29/2020 6:42 AM CDT Problem: Reduced risk for falls/injury Goal: Reduced Risk for Falls/Injury Outcome: Not Progressing Goal: Reduced Risk of Confusion (Acute vs Chronic) Outcome: Not Progressing Problem: Reduced risk for falls/injury Goal: Reduced Risk of Symptomatic Depression Outcome: Progressing Goal: Reduced Risk of Altered Elimination Outcome: Progressing Goal: Reduced Risk of Dizziness/Vertigo/Balance Outcome: Progressing Goal: Reduced Risk of Polypharmacy Outcome: Progressing Problem: Hyperlipidemia Goal: Cholesterol within specified parameters Outcome: Progressing Problem: Hypertension Goal: Blood pressure within specified parameters Outcome: Progressing Problem: Nutritional Deficit, Risk of Goal: Adequate nutritional intake Outcome: Progressing Problem: Pain Goal: Achieve acceptable pain level Outcome: Progressing Problem: Psychological Distress Goal: Effective coping Outcome: Progressing Problem: Stroke Prophylaxis Goal: Knowledge of stroke prevention measures Outcome: Progressing Problem: Venous Thromboemobolism Risk of, (Medical) Goal: Absence of venous thromboembolism Outcome: Progressing Problem: Auditory Comprehension Goal: STG - Pt will follow commands presented verbally Description STG - PT WILL FOLLOW COMMANDS PRESENTED VERBALLY [1932] Outcome: Progressing Problem: Verbal Expression or Nonverbal Expressive Communication Goal: STG - Pt will appropriately respond to questions Description STG - Pt will appropriately respond to questions Outcome: Progressing Problem: Cognitive Language Goal: STG - Pt will demonstrate problem solving skills Description STG - Pt will demonstrate problem solving skills Outcome: Progressing Goal: STG - Pt will use memory strategies and/or aids Description STG - Pt will use memory strategies and/or aids Outcome: Progressing Goal: STG - Pt will demonstrate recall of information Description STG - Pt will demonstrate recall of information Outcome: Progressing Goal: STG - Pt will demonstrate executive functioning skills (awareness, goal- setting, planning, initiation, and/or self-monitoring Description STG - Pt will demonstrate executive functioning skills (awareness, goal-setting, planning, initiation, and/or self-monitoring Outcome: Progressing Problem: OT Misc Goal: STG - OT Misc 1 Description Pt will complete dressing with Independent sitting EOB or in chair to increase safety and independence with ADLs. Pt will complete all grooming and self-feeding with Independent to increased safety and independence with ADLs. Pt will complete ADLs at sink with Independent to increase independence with ADLs. Pt will complete toileting hygiene and clothing management with Independent to increase safety and independence with ADLs. Pt to complete bathing with Independent seated in chair/EOB to increase independence with ADLs. Pt will complete transfers all surfaces to/from all surfaces with Modified Briscoe using wheeled walker to increase functional mobility and transfers. Pt will participate within skilled therapy services for 20-30 minutes with 1-2 rest breaks to increase independence with ADLs and functional transfers. Pt will increase dynamic balance sitting on soft surface to complete ADLs with Briscoe for 20-30 minutes to increase safety and independence with ADLs and functional transfers. Pt will increase dynamic standing balance standing at sink/dressing completing ADLs with Modified [place] with wheeled walker for 20-30 minutes to increase safety and independence with ADLs and functional transfers. Pt will increase safety and memory recalling basic orientation and following complex verbal commands with no verbal cuing to increase safety and independence with ADLs and functional transfers. Pt will increase attention/attend to ADLs and activities with no verbal cues and minimal distractions to increase safety and independence with ADLs and functional tasks. Outcome: Progressing Problem: Misc. Goal: PT Misc 1 Description Pt. will be able to perform supine to/from sitting at EOB with Independent to improve mobility. Pt. will be able to perform sit to/from standing with Independent to improve independence. Pt. will be able to ambulate 600 feet with Independent to help improve strength and functional independence. Pt. will be able to maintain static sitting balance for 10 minutes with Independent to improve independence. Pt. will be able to maintain dynamic sitting balance on soft surface with Independent to improve functional mobility. Pt. will be able to maintain static standing balance 5 minutes with Independent to improve independence. Pt. will be able to maintain dynamic standing balance during side-stepping L/R and marching with Independent to improve functional mobility. Pt. will be able to ascend/descend 3 steps with Modified Briscoe using handrail(s) to increasestrength and to safely access home at D/C. Outcome: Progressing Pt continues to be a&ox2 with moments of increased confusion. VSS, no changes in neuro checks, sitter still in place. Will continue to medicate as needed and ordered. * Chandra Stewart MD - 01/28/2020 2:13 PM CDT Brenda Gotti is a 84-year-old female patient. Patient Active Problem List Diagnosis Date Noted ??? Confusion 01/28/2020 ??? Acute ischemic stroke (CMS/HCC) 01/26/2020 Past Medical History: Diagnosis Date ??? Arthritis ??? Cancer (CMS/HCC) appendix ??? History of blood transfusion ??? Hypertension Current Facility-Administered Medications Medication Dose Route Frequency Provider Last Rate Last Dose ??? acetaminophen (TYLENOL) tablet 650 mg 650 mg Oral Q6H PRN Chandra Stewart MD 650 mg at 01/28/20 0947 ??? aspirin chewable tablet 81 mg 81 mg Oral Daily Chandra Stewart MD 81 mg at 01/28/20 0943 ??? atorvastatin (LIPITOR) tablet 40 mg 40 mg Oral Nightly at bedtime Humphrey Chapin MD 40 mg at 01/27/20 2142 ??? cefTRIAXone (ROCEPHIN) 1 g in sodium chloride 0.9 % 50 mL IVPB 1 g Intravenous Q24H Chandra Stewart MD 100 mL/hr at 01/28/20 1410 1 g at 01/28/20 1410 ??? heparin (porcine) injection 5,000 Units 5,000 Units Subcutaneous 2 times per day Chandra Stewart MD5,000 Units at 01/28/20 0943 ??? metoprolol tartrate (LOPRESSOR) tablet 25 mg 25 mg Oral BID Humphrey Chapin MD 25 mg at 01/28/20 09 Allergies Allergen Reactions ??? Seasonal Unknown Sneezing Active Problems: Acute ischemic stroke (CMS/HCC) SNOMED CT(R): ISCHEMIC STROKE Confusion SNOMED CT(R): CONFUSIONAL STATE Brenda's height is 5' 5 (1.651 m) and weight is 58.1 kg (128 lb 1.4 oz). Her oral temperature is 98.1 ??F (36.7 ??C). Her blood pressure is 135/116 (abnormal) and her pulse is 77. Her respiration is 16 and oxygen saturation is 95%. Subjective: Symptoms: No shortness of breath or chest pain. (Patient stable. No acute events. Aphasia resolved.). Objective: General Appearance: Comfortable and in no acute distress. Vital signs: (most recent): Blood pressure (!) 135/116, pulse 77, temperature 98.1 ??F (36.7 ??C), temperature source Oral, resp. rate 16, height 5' 5 (1.651 m), weight 58.1 kg (128 lb 1.4 oz), [id number] %. No fever. Output: Producing urine and producing stool. HEENT: Normal HEENT exam. Lungs: Normal effort. Breath sounds clear to auscultation. She is not in respiratory distress. No decreased breath sounds. Heart: Normal rate. Regular rhythm. No murmur. Abdomen: Abdomen is soft and non-distended. Bowel sounds are normal. There is no epigastric area tenderness. Assessment: (Ms. Gotti is a 84 year old female patietn with Hx of HTN and OA admitted to the hospital with aphasia and AMS: ?? 1. Acute lacunar CVA: MRI noted which is significant for a lacunar infarct. Brenda`s symptoms have nocompletely resolved. Case discussed with neurology - that small lacunar CVA might be an incidental finding. However, given the stroke will have to medical optimize patient. Her A1c is 5, LDL 147, ECHO and carotid dopplers WNL. Start Atorvastatin and ASA 81 mg. Follow up with neurology as outpatient. ?? 2. Hx of HTN: Continue home BB. ?? 3. HFpEF 70% with LVH. Continue Metoprolol. Will benefit from ACEI or ARB. Low dose Lisinopril started. BMP in AM. ?? 4. UTI: UA shows several WBC. Cx NGTD but has not finalized. Patient denies any symptoms currently,Ceftriaxone for now and follow Cx. ?? DVT PPX; start SQH Full Code). CHANDRA STEWART MD 01/28/2020 * Yeison Contreras PharmD - 01/28/2020 12:54 PM CDT Pharmacy Clinical Services: Stroke Discharge Note Brenda Gotti will be discharged on 01/28/2020. Pharmacy had been consulted to review the patient's chart for medication appropriateness upon discharge for meeting stroke core measures. 1. Antithrombotic therapy: aspirin 81 mg. 2. Statin therapy: atorvastatin 40 mg daily 3. Documented A.Fib/flutter?: No; Anticoagulation therapy: none indicated Stroke measures have been met and medications are appropriate upon discharge. Thank you for the consult. YEISON CONTRERAS PharmD Phone number: [phone] 01/28/2020 12:54 PM * Jane Rivera RN - 01/28/2020 12:33 PM CDT MARCO ANTONIO received a call from therapy and asking CM to initiate HH for pt as she is being discharged today and will have her daughter Rafaela stay with her 31/03. CM reached out to Rafaela. She confirms she will be w/pt 31/03. CM discussed having [facility] coming to see pt for PT/OT/ST and nursing. CM confirmed HH pt address as listed. Orders for PT/OT/ST, nurse aid for bathing and Nursing to be faxed with DC Summary to: [facility] at [phone] with dc orders. [facility] aware pt will be discharged today. Daughter Rafaela will fruit picker at [place] [facility] [employer] [place] [phone] prior to reaching the hospital to have pt brought [facility] [employer] for [facility] home. Rafaela's phone number is [phone]. HOLD DC. Pt will is not ready for dc today. CM called daughter Rafaela and advised. CM called [facility] and advised we will call when pt is ready. * Joann Rodriguez, PT - 01/28/2020 11:43 AM CDT PT Initial Evaluation Discharge Recommendation: home with assistance Activity Recommendation for artists' booking representative: up with one 01/28/20 1143 Therapy Visit Ordering Provider MD Winter PT Received On 01/28/20 Subjective Pt agreeable to therapy evaluation. Reason for admission Pt presenting after being found confused with clothes on backwards. HCT (-)...MRI acute lacunar stroke in the deep white matter of the left temporal occipital region.......PMH: HLD, ablation, HTN, arthritis.......Orders to eval and treat Verified Two Patient Identifiers Yes Patient consents to therapy Yes Acute Inpatient PT Time Calculation PT Start Time 1116 PT Stop Time 1143 PT Time Calculation (min) 27 min Precautions General Precautions Fall Risk;Chair Alarm Instructed on Precautions Yes;Verbalizes understanding;Needs reinforcement and education Other tele, cognition Prior Function Comments Pt questionable historian.Called and spoke to Pt's daughter Yanira reporting she lives at home with Pt's daughter Rafaela who is currently present 31/03 as she is working from home until March 13. Pt living in a 1 story home with 3 steps to enter. Pt has a walk-in shwoer with seat and grab bars. Pt has a standard toilet. Pt owns a straight cane with no prior use. Pt was independent with allADLs and instrumental ADLs. Per Yanira, Rafaela can complete instrumental ADLs. Pain Pain No Activity Tolerance Endurance Endurance does not limit participation in activity Activity Tolerance Comments cognition Cognition Overall Cognitive Status Impaired Orientation Level Oriented X4 Comments Pt alert and oriented. Although oriented Pt with decreased safety awareness, STM, and decreased insight into deficits. Pt requiring minimal verbal cuing for safety with her ADLs and minimal verbal cuing for sequencing of tasks. Sensation Light Touch No apparent deficits Overall Extremity Assessment Lower Extremity Comment gross strength bilat LE 4/5 Bed Mobility Supine to Sit Independent TRANSFERS Sit to Stand SBA/supervision Bed to Chair SBA/supervision Gait Gait Assistance Contact guard assist Assistive Device None;2 Wheeled walker Ambulation Distance (Feet) 200 feet with last 20 feet with 2ww Other (Comment) Pt unsteady with step through pattern,narrow base of support and bilat intoeing, noted L LE near scissor pattern at times with lateral LOB to R. Pt required CGA to correct. With walker, no significant improvement with balance. Stairs Stair Management Assistance Contact guard assist Stair Management Technique One rail L;Alternating pattern Number of Stairs 9 Other (Comment) alternating pattern. Balance Sitting - Static Independent Sitting - Dynamic Independent Standing - Static SBA Standing - Dynamic Modified independence Other (Comment) Pt completing functional mobility with SBA with 1 LOB requiring CGA. Pt with increased safety and balance when using 2ww with modified independence. Assessment Personal Factors/Comorbidities Impacting Care 3-4 personal factors/comorbidities Examination of Body Systems Moderate (3 or more Elements) Objectives of Body Systems Impaired bed mobility;Impaired transfers;Impaired ambulation;Impaired balance;Decreased LE strength;Decreased safe judgement;Decreased cognition;Decreased endurance Clinical Presentation of Patient Evolving and changing characteristics Complexity Level of Evaluation Moderate Prognosis Good Modified Finley Score Interval Daily Score 0-6 3 Moderate disability, requiring some help, but able to walk without assistance Recommendation PT Recommendation Home with assistance;Home PT;Home OT PT Equipment Recommended 2 Wheeled walker Plan PT Treatments/Interventions Gait Training;Manual Therapy;Therapeutic Exercises;Therapeutic Activities;Neuromuscular re-education;Patient/family training PT Frequency 5 times/week PT - Next Appointment 01/28/20 If this is the last treatment note,it will serve as the discharge summary Yes End of Session Safety End of Session Safety Chair alarm set/activated;Call light within reach;Transfer status education;Nursing aware of session Assessment: Pt is 84 yo female admitted with CVA. Prior to admission pt was independent with all ADLs and functional mobility. Pt demonstrates impaired activity tolerance, balance, LE strength and overall functional mobility. Pt would benefit from further therapy to address deficits and maximize safety and independence with functional mobility. Anticipate pt to require continued therapy at at home with home health therapy to continue addressing deficits and progress pt independence and safety with functional mobility. 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 Pt currently with decreased activity tolerance and cognition limiting independence and safety with ADLs and functional transfers. Pt would benefit from skilled OT services to increase safety, strength, activity tolerance, and independence with ADLs and functional transfers. 01/28/20 1119 Therapy Visit OT Received On 01/28/20 Reason for admission Pt presenting after being found confused with clothes on backwards. HCT (-)...MRI acute lacunar stroke in the deep white matter of the left temporal occipital region.......PMH: HLD, ablation, HTN, arthritis.......Orders to eval and treat Previous Occupational Therapy Unknown Ordering Provider MD Winter Verified Two Patient Identifiers Yes Patient consents to therapy Yes Acute Inpatient OT Time Calculation OT Start Time 1119 OT Stop Time 1145 OT Time Calculation (min) 26 min Precautions General Precautions Fall Risk;Chair Alarm Instructed on Precautions Yes;Verbalizes understanding;Needs reinforcement and education Other tele, cognition Subjective Subjective Pt agreeable to therapy evaluation. Prior Function Comments Pt questionable historian.Called and spoke to Pt's daughter Yanira reporting she lives at home with Pt's daughter Rafaela who is currently present 31/03 as she is working from home until March 13. Pt living in a 1 story home with 3 steps to enter. Pt has a walk-in shwoer with seat and grab bars. Pt has a standard toilet. Pt owns a straight cane with no prior use. Pt was independent with allADLs and instrumental ADLs. Per Yanira, Rafaela can complete instrumental ADLs. Pain Pain No Objective Objective Pt supine in bed with RN ana m therapy evaluation. Discussion with Yanira reporting PT can physically complete tasks but cognitively would be unsafe if she does not have someone present 31/03. Yanira reporting Rafaela will be present 31/03 to assist. Activity Tolerance Endurance Endurance does not limit participation in activity Activity Tolerance Comments cognition Vision - Basic Assessment Current Vision No visual deficits;Wears glasses Cognition Overall Cognitive Status Impaired Orientation Level Oriented X4 Comments Pt alert and oriented. Althoug oriented Pt with decreased safety awareness, STM, and decreased insight into deficits. Pt requiring minimal verbal cuing for safety with her ADLs and minimal verbal cuing for sequencing of tasks. Overall Extremity Assessment Upper Extremity AROM/MMT WFL bilateral UE RUE Assessment RUE Assessment WFL LUE Assessment LUE Assessment WFL Hand Function Hand Dominance Right Gross Grasp Right;Left;Functional Coordination Functional Sensation Light Touch No apparent deficits ADL Grooming Assistance Stand by LE Dressing Assistance Stand by Additional Comments SBA for grooming at sink for safety due to decreased cognition. Pt donning socks and shoes at EOB with SBA for minimal verbal cuing for sequencing and redirection back to tasks. Bed Mobility Supine to Sit Independent Functional Transfers Sit to Stand SBA/supervision Bed to Chair SBA/supervision Functional Mobility Pt completing functional mobility with SBA with 1 LOB requiring CGA. Pt with increased safety and balance when using 2ww with modified independence. Balance Sitting - Static Independent Sitting - Dynamic Independent Standing - Static SBA Standing - Dynamic Modified independence Other (Comment) Pt completing functional mobility with SBA with 1 LOB requiring CGA. Pt with increased safety and balance when using 2ww with modified independence. Proprioception Proprioception No apparent deficits Assessment Occupational Profile and History Complexity High (Extensive) Performance Skills Deficits Bathing/showering;Dressing;Education;Functional mobility;Personal hygiene and grooming;Toileting Performance Deficit Level High (5 or more deficits) Clinical Decision Making Moderate (min/mod modifications) Complexity Level of Evaluation Moderate Prognosis Good Modified Finley Score Interval Daily Score 0-6 3 Moderate disability, requiring some help, but able to walk without assistance Recommendation OT Recommendation Home with assistance;24 hour supervision/assist OT Equipment Recommended 2 Wheeled walker Plan OT Treatment/Intervention Self-care training;Therapeutic exercises;Therapeutic activities;Safety;Functional activity;Continued evaluation;Patient/family training;Neuromuscular re-education OT Frequency 6 times/week OT - Next Appointment 01/28/20 If this is the last treatment note, it will serve as the discharge summary Yes End of Session Safety End of Session Safety Chair alarm set/activated;Call light within reach;Transfer status education;Nursing aware of session * Kesha Fang, ONLINE HEALTH AND FITNESS COACH - 01/28/2020 11:18 AM CDT ONLINE HEALTH AND FITNESS COACH Initial Stroke Evaluation Diet Recommendation: As medically indicated Recommendations: General aspiration precautions Summary Statement: Patient presents with a clinically functional oropharyngeal swallow based on bedside assessment this date; recommend continuation of diet as medically indicated. Patient presents with mildly impaired cognitive-linguistic functioning; suspect may be near patient's baseline. Speechpathology will continue to follow during hospitalization as appropriate. Anticipate patient will require assistance if discharges home. Past Functional History: This patient resides at home with her daughter. Patient reports her daughter assists with felt hat steamer including cooking, cleaning, and laundry. However, patient able to management finances and medications. Objective: This patient was seen at bedside for initial swallowing evaluation and cognitive-linguistic evaluation per stroke order set. Patient accepted trials of thin, nectar, pureed, soft solid, and hard solid consistencies. Oral mechanism--Tongue protruded to midline and retracted and lateralized with adequate strength and range. Lips protruded and retracted with adequate strength and range. Good range of motion of jaw.Velum elevated symmetrically. There was no appreciable facial droop. Oral phase--Good lip seal around spoon and straw. Prolonged mastication of hard solid but complete and functional. Fairly timely and complete anterior-posterior transit of bolus within oral cavity. No anteiror leakage or spillage and no oral holding or pocketing observed. Pharyngeal phase--Suspect fairly timely trigger of the pharyngeal swallow. Clinically adequate hyolaryngeal elevation upon palpation. No clinical signs/symptoms of aspiration including choking, coughing, throat clearing, wet respiration, or change in vocal quality with any accepted trials during bedside swallowing evaluation. Malware Analyst administered the Yareil Cognitive Assessment (MOCA). The following represents patient's performance: Visuospatial/Executive: 3 out of 5 Namin out of 3 Memory (immediate; not scored): 4 out of 5 Attention: 5 out of 6 Language: 2 out of 3 Abstraction: 1 out of 2 Delayed Recall: 3 out of 5 Orientation: 5 out of 6 This patient scored 22 out of 30 on this examination, which is commensurate with mildly impaired cognitive-linguistic functioning. Patient demonstrated difficulty with recall of information during short-term memory task. Patient able to recall personal and biographical information and details aboutfamily members but required re-direction and assistance. Patient oftentimes provided irrelevant information when answering questions asked. Patient demonstrated difficulty with executive functioning tasks as well. However, patient able to name common objects, repeat, following single-step commands,and accurately answer yes/no questions. Patient demonstrated difficulty with following multi- step directions and intermittent word finding difficulty in spontaneous speech. 01/28/20 0900 Therapy Visit ONLINE HEALTH AND FITNESS COACH Received on 01/28/20 Treatment Day 01/28/2020 Subjective Patient alert and upright in bed. Patient pleasant and fully cooperative throughout evaluation. Reason for Admission Acute Ischemic Stroke Comorbidities Relevant for ONLINE HEALTH AND FITNESS COACH Per EMR, patient is 84-year-old female who transferred from [facility] for evaluation of altered mental status. Past medical history per EMR includes arthritis, HTN, SVT s/p ablation, aortic stenosis, HLD. Prior Level of Function Patient reportedly consumes a general diet with thin liquids with no prior difficulty swallowing. Verified Two Patient Identifiers Yes Patient consents to Therapy Yes Acute Inpatient ONLINE HEALTH AND FITNESS COACH Time Calculation ONLINE HEALTH AND FITNESS COACH Start Time 1041 ONLINE HEALTH AND FITNESS COACH Stop Time 1118 ONLINE HEALTH AND FITNESS COACH Time Calculation (min) 37 min Precautions Precautions Aspiration;Stroke protocol Instructed on Precautions Yes;Verbalizes understanding;Demonstrates understanding Pain Pain No Pain score 0 ONLINE HEALTH AND FITNESS COACH Recommendations Recommendations ONLINE HEALTH AND FITNESS COACH during hospitalization;Home with assistance Recommended Solid Diet Regular Recommended Liquid Consistency Thin Recommended Medication Form Whole Plan ONLINE HEALTH AND FITNESS COACH Treatments/Interventions Cognitive communication treatment;Language treatment ONLINE HEALTH AND FITNESS COACH Frequency 1 time/week;3 times/week If this is the last treatment note, it will serve as the discharge summary Yes End of Session Safety End of Session Safety Call light within reach;Nursing aware of session End of Session Comment Discussed with RN. * Apolonia Reilly RN - 01/27/2020 2:51 PM CDT Patient lives with her daughter Rafaela. Her daughter Yanira is a an RN and would like to have a conversation with the MD when the evaluation is completed. They have another sister also. Yanira has someconcerns about some of the medication that her mom is taking that it may be contributing to depression, etc. 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 They are open to the need for rehab and if possible--they would like the mother to come home--yet are also open to rehab at [facility] . 01/27/20 1448 Referral Data Referral Reason Discharge Planning Source of Information Patient Baseline ADL's Functional Status Independent Living Arrangements Children Type of Residence Private residence Active DME (no DME) Bathing/Grooming Assistance No Dressing Assistance No Behavior Oriented;Cooperative Communication Talks;Understands speaking;Understands Bermudian Anticipated DC Plan Living Arrangements Children Support Systems Children Type of Residence Private residence Patient expects to be discharged to: Home * Chandra Stewart MD - 01/27/2020 2:03 PM CDT Brenda Gotti is a 84-year-old female patient. Patient Active Problem List Diagnosis Date Noted ??? Confusion 01/26/2020 Past Medical History: Diagnosis Date ??? Arthritis ??? Cancer (CMS/HCC) appendix ??? History of blood transfusion ??? Hypertension Current Facility-Administered Medications Medication Dose Route Frequency Provider Last Rate Last Dose ??? acetaminophen (TYLENOL) tablet 650 mg 650 mg Oral Q6H PRN Chandra Stewart MD 650 mg at 01/27/20 1347 ??? atorvastatin (LIPITOR) tablet 40 mg 40 mg Oral Nightly at bedtime Humphrey Chapin MD 40 mg at 01/26/202038 ??? metoprolol tartrate (LOPRESSOR) tablet 25 mg 25 mg Oral BID Humphrey Chapin MD 25 mg at 01/27/20 0955 Allergies Allergen Reactions ??? Seasonal Unknown Sneezing Active Problems: Confusion SNOMED CT(R): CONFUSIONAL STATE Brenda's height is 5' 5 (1.651 m) and weight is 58.1 kg (128 lb 1.4 oz). Her oral temperature is 98.1 ??F (36.7 ??C). Her blood pressure is 144/59 and her pulse is 68. Her respiration is 18 and oxygensaturation is 97%. Subjective: Symptoms: No shortness of breath or chest pain. (Patient stable. No acute events. Aphasia resolved.). Objective: General Appearance: Comfortable and in no acute distress. Vital signs: (most recent): Blood pressure 144/59, pulse 68, temperature 98.1 ??F (36.7 ??C), temperature source Oral, resp. rate 18, height 5' 5 (1.651 m), weight 58.1 kg (128 lb 1.4 oz), SpO2 97 %. No fever. Output: Producing urine and producing stool. HEENT: Normal HEENT exam. Lungs: Normal effort. Breath sounds clear to auscultation. She is not in respiratory distress. No decreased breath sounds. Heart: Normal rate. Regular rhythm. No murmur. Abdomen: Abdomen is soft and non-distended. Bowel sounds are normal. There is no epigastric area tenderness. Assessment: (Ms. Gotti is a 84 year old female patietn with Hx of HTN and OA admitted to the hospital with aphasia and AMS: 1. Acute lacunar CVA: MRI noted which is significant for a lacunar infarct. Brenda`s symptoms have nocompletely resolved. Will get A1c, Lipid panel, ECHO and carotid dopplers. Continue permissive HTN for another 24 hours with telemetry. Stroke team on board. Continue PT/OT/SPL. Will start ASA 81 mg for now and continue statin. Appreciate recs from stroke team. 2. Hx of HTN: Permissive HTN. 3. UA remains pending. DVT PPX; start SQH Full Code). CHANDRA STEWART MD 01/27/2020 documented in this encounter H&P Notes * Humphrey Chapin MD - 01/26/2020 3:39 PM CDT [facility] Hospitalist History & Physical Attending Provider: Humphrey Chapin MD PCP: KIEL HADLEY MD Chief Complaint: AMS HPI: Brenda Gotti is an 84-year-old female [place] [facility] [place] of AMS. PT was last seen normal at 2100 last night. Pt was found by her daughter this am, confused. Only new her first name. Clothes were on backwards. Pt's pills were all over the place, but none seemed to be missing. Pt had a neg head CT. WBC 10.2, PLT 264, INR 1.0, Na 144, Cr 0.90. NH4<10, LFT's normal. Ca 8.9,trop.02. Salycylate 1. Ua neg. tox positive for benzos. ABG PCO2 44.7. Pt knows her first name, thinks she is [place]. Follows commands. Some expressive aphasia. Gait is normal to bathroom. Past Medical History: Diagnosis Date ??? Arthritis ??? History of blood transfusion ??? Hypertension SVT s/p ablation Aortic stenosis , OP, HTN, HLD Allergies Allergen Reactions ??? Seasonal Unknown Sneezing Social History Tobacco Use ??? Smoking status: Never Smoker ??? Smokeless tobacco: Never Used Substance Use Topics ??? Alcohol use: No Frequency: Never No family history on file. No current facility-administered medications on file prior to encounter. Current Outpatient Medications on File Prior to Encounter Medication Sig ??? cetirizine 10 MG tablet Take 10 mg by mouth daily. ??? chlordiazepoxide 5 MG capsule Take 5 mg by mouth 3 (three) times daily as needed for Anxiety. ??? gabapentin 300 MG capsule One capsule by mouth at breakfast and lunch, two capsules at bedtime ??? metoprolol tartrate 25 MG tablet Take 25 mg by mouth 2 (two) times a day. ??? mirtazapine 30 MG tablet Take 30 mg by mouth nightly at bedtime. ??? Multiple Vitamins-Minerals (ICAPS AREDS 2) Cap Take 2 tablets by mouth daily. ??? Psyllium (METAMUCIL FIBER OR) Take 1 tablet by mouth daily. Indications: CONSTIPATION ROS Unable to get ROS due to confusion There were no vitals taken for this visit. Physical Exam No results found. Results for orders placed or performed during the hospital encounter of 07/06/19 CULTURE URINE Result Value Ref Range Spec. Description URINE, CYSTOSCOPIC Special Requests: NO SPECIAL REQUEST Culture Result: >100,000 CFU/mL KLEBSIELLA PNEUMONIAE PNEUMONIAE Susceptibility Klebsiella pneumoniae pneumoniae - LEO (VITEK) AMPICILLIN Resistant AMOXICILLIN/CLAVULANIC A Sensitive AZTREONAM Sensitive CEFEPIME Sensitive CEFTRIAXONE Sensitive CEFAZOLIN Sensitive CIPROFLOXACIN Sensitive ESBL NEG Sensitive ERTAPENEM Sensitive NITROFURANTOIN Resistant GENTAMICIN Sensitive IMIPENEM Sensitive LEVOFLOXACIN Sensitive MEROPENEM Sensitive PIPRACIL/TAZO Sensitive TRIMETH-SULFAMETH. Sensitive TETRACYCLINE Sensitive No results found for this visit on 01/26/20. No results found. Assessment / Plan: 1. AMS, rule out posterior circulation stroke. Rule out toxic metabolic , infectious cause EEG MRI Dr Yoo to see Electrolytes and CXR, ua appear normal. Pt had pills all over but did not overtake meds. Hold librium, gabapentin and mirtazapine ASA 81 mg po daily HTN Stable Cont lopressor Swallow Thoracic AA Cont BB HLD Check fasting lipids Follow SVT Tele Follow Neurologic exam HUMPHREY CHAPIN MD 01/26/2020 documented in this encounter Procedure Notes * Krupa Santos MD - 01/27/2020 9:47 AM CDTAssociated Order(s): EEG AWAKE OR DROWSY ROUTINE Procedure(s): EEG ROUTINE Prolonged routine (~41 mins) Electroencephalogram (EEG) report: Patient name: Brenda Gotti Date of : 1935 Medical Record: [id number] Age: 84-year-old Date of procedure: 01/27/20, from 0702 to 0743 Referring Physician: Chandra Stewart MD Clinical History: Patient with altered mental status, concern for possible seizures. Diagnosis code: Seizures/Events NOS R56.9 Current Medications: lipitor, metoprolol Technical Summary: A routine EEG with 21-channel digital EEG with single - channel EKG, was recorded using a N[place]ona system at a sampling rate of 200 Hz. Scalp electrodes were placed with 10-20 paste following the 10-20 International System. Additional anterior temporal electrodes were used for this recording. A variety of referential and bipolar montages were used to analyze the data. Findings: The waking background was characterized by a reactive, moderately well organized mixture of alpha, beta and some theta with a symmetric 8-8.5 Hertz posterior dominant rhythm (PDR). The anterior to posterior gradient of frequency and amplitude was preserved. During drowsiness, slow roving eye movements, attenuation and fragmentation of the posterior dominant rhythm and diffuse background slowing was observed. Periods of sleep with symmetric and synchronous sleep spindles were noted. Mild generalized slowing was present due to presence of mild excess of theta frequency activity diffusely. Mild superimposed focal slowing was noted over the left hemisphere characterized by additional polymorphic delta frequency activity. No epileptiform discharges were seen. Activation Procedures: Intermittent photic stimulation was performed between 3-30 Hertz. This was not associated with a signficant change from the background (normal response). Hyperventilation was not performed. EKG: A single lead EKG showed regular rhythm with a heart rate of approximately 60-70 bpm. Events: No clinical or electrographic seizures were recorded. Impression: This is an abnormal prolonged routine EEG recorded in awake and drowsy state/(s) due to the presence of: 1. Mild diffuse slowing 2. Superimposed focal slowing over the left hemisphere. No epileptiform discharges or seizures were noted. Clinical Correlation: This abnormal EEG is consistent with a mild diffuse cerebral dysfunction (encephalopathy) with a possible superimposed focal structural or physiologic abnormality in the left hemisphere. The lack of epileptiform activity does not preclude a potential diagnosis of epilepsy. documented in this encounter Consult Notes * Javi Yoo MD - 01/27/2020 4:54 PM CDTAssociated Order(s): Inpatient Consult to Neurology Images from the original note were not included. [facility] Inter[facility] Neu[facility] Office Inpatient Consultation Note Brenda Gotti 1935 [id number] Inpatient Consult to Neurology Consult performed by: Javi Yoo MD Consult ordered by: Humphrey Chapin MD Reason for consult: Confusion, MRI shows a stroke. Assessment/Recommendations: The patient's acute ischemic stroke in the left temporal occipital white matter area is most likely of small vessel etiology. She presented with an acute confusional state. It is hard for me to attribute all her presenting symptoms to this tiny punctate infarct which I showed down in the note, the picture shown is from the actual DWI sequence of the MRI. It is possiblethat the stroke was larger and resolved with only this much infarction shown on MRI. It is also possible that this is an incidental finding and the patient had another etiology that explains her confusion. We will work it up either way for possible seizures and for the acute stroke that we saw, shehas multiple other small vessel lesions and therefore she is at risk of further strokes. The MRI that I recommended has been completed and I reviewed myself and I pasted an image of a below. I ordered an EEG. I would like her to start taking daily low-dose aspirin. Recommendations also include a carotid ultrasound, and echocardiogram, lipid panel, LDL. LDL is elevated, I agree with starting the Lipitor at only 40 mg instead of 80 given her age. I will tailor her outpatient lipid lowering therapy to target an LDL goal of less than 70. She has no known diabetes, but I added on a hemoglobin A1c to her work-up. Her BP goal is <140, there is no need for any permissive HTN. She does not seem to really require a lot of rehab for her recovery, her exam was acceptable exceptfor some problems with her attention domain. I will address that on outpatient and refer her to general neurology for mild cognitive impairment evaluation. Her appointment with me for follow-up was on Friday at 11:20 AM, I concluded that in her discharge tab. I will not return to see the patient unless her left carotid ultrasound shows a stenosis of greater than 70%, we would have to reconsider our management. I have discussed the case with the attending of record. This is a 84-year-old female whom I was asked to see for acute confusion. HPI: She was last known well on 01/25/2020 at night, she presented on 01/26/2020 to an outside facility after being found at home confused, wearing her clothes backwards, speaking nonsense. I accepted her here for possible evaluation of stroke versus other confusion states. She tells me she recalls the episode and she does not know why she was so confused, she does not know what happened. She feelsshe is back to normal now she tells me she has been having some trouble with her memory. She says she never had a stroke, denies at the present time double vision, no trouble speaking, no trouble swallowing, no numbness no tingling and no other symptoms. She has a stroke family history with a brother that from a massive stroke last year, she thinks he received his care here at [facility]. She does not smoke does not use illegal drugs and does not use alcohol. She is not on blood thinners at this time. Allergies: Allergies Allergen Reactions ??? Seasonal Unknown Sneezing PMH: Past Medical History: Diagnosis Date ??? Arthritis ??? Cancer (CMS/HCC) appendix ??? History of blood transfusion ??? Hypertension PSH: Past Surgical History: Procedure Laterality Date ??? APPENDECTOMY ??? COLONOSCOPY ??? HC EP STUDY PLUS SVT ABLATION [id number] ??? HYSTERECTOMY Home Meds: Prior to Admission Medications Prescriptions Last Dose Informant Patient Reported? Taking? Multiple Vitamins-Minerals (ICAPS AREDS 2) Cap Unknown at Unknown time Yes No Sig: Take 2 tablets by mouth daily. acetaminophen 500 MG tablet Unknown at Unknown time Yes No Sig: Take 500 mg by mouth every 4 (four) hours as needed for Pain. bismuth subsalicylate 525 MG/15ML Suspension suspension Unknown at Unknown time Yes No Sig: Take 30 mLs by mouth every 6 (six) hours as needed for Indigestion. cetirizine 10 MG tablet Unknown at Unknown time Yes No Sig: Take 10 mg by mouth as needed for Allergies. chlordiazepoxide 5 MG capsule Unknown at Unknown time Yes No Sig: Take 5 mg by mouth 3 (three) times daily as needed for Anxiety. cranberry 450 MG Tab tablet Unknown at Unknown time Yes No Sig: Take 450 mg by mouth daily. docusate sodium 100 MG capsule Unknown at Unknown time Yes No Sig: Take 100 mg by mouth 2 (two) times daily as needed for Constipation. gabapentin 300 MG capsule Unknown at Unknown time Yes No Sig: One capsule by mouth at breakfast and lunch, two capsules at bedtime ibuprofen 200 MG tablet Unknown at Unknown time Yes No Sig: Take 200 mg by mouth every 6 (six) hours as needed for Pain. loperamide 2 MG capsule Unknown at Unknown time Yes No Sig: Take 2 mg by mouth 4 (four) times daily as needed for Diarrhea. metoprolol tartrate 25 MG tablet Unknown at Unknown time Yes No Sig: Take 25 mg by mouth 2 (two) times a day. mirtazapine 30 MG tablet Unknown at Unknown time Yes No Sig: Take 30 mg by mouth nightly at bedtime. psyllium 51.7 % packet Unknown at Unknown time Yes No Sig: Take 1 packet by mouth nightly at bedtime. Facility-Administered Medications: None Social Hx: Social History Socioeconomic History ??? Marital status: Spouse name: Not on file ??? Number of children: Not on file ??? Years of education: Not on file ??? Highest education level: Not on file Occupational History ??? Not on file Social Needs ??? Financial resource strain: Not hard at all ??? Food insecurity: Worry: Never true Inability: Never true ??? Transportation needs: Medical: Not on file Non-medical: Not on file Tobacco Use ??? Smoking status: Never Smoker ??? Smokeless tobacco: Never Used Substance and Sexual Activity ??? Alcohol use: No Frequency: Never ??? Drug use: No ??? Sexual activity: Not on file Lifestyle ??? Physical activity: Days per week: Not on file Minutes per session: Not on file ??? Stress: Not on file Relationships ??? Social connections: Talks on phone: Not on file Gets together: Not on file Attends lutheran service: Not on file Active member of club or organization: Not on file Attends meetings of clubs or organizations: Not on file Relationship status: Not on file ??? Intimate partner violence: Fear of current or ex partner: Not on file Emotionally abused: Not on file Physically abused: Not on file Forced sexual activity: Not on file Other Topics Concern ??? Not on file Social History Narrative ??? Not on file Family Hx: No family history on file. Review of Systems: ROS Filed Vitals: 01/27/20 0414 01/27/20 0832 01/27/20 1304 01/27/20 1649 BP: (!) 163/83 (!) 156/70 144/59 (!) 152/73 Pulse: 70 71 68 71 Resp: 18 Temp: 98.2 ??F (36.8 ??C) 98.2 ??F (36.8 ??C) 98.1 ??F (36.7 ??C) 97.9 ??F (36.6 ??C) TempSrc: Oral Oral Oral SpO2: 97% 94% 97% 100% Weight: Height: Physical Exam: General appearance alert, no distress. She has normal pulses in the bilateral radial arteries (2+) with regular rate and rhythm, there is no edema in the bilateral lower extremities to visual inspection. Neurologic Exam Mental Status Oriented to person, place, and time. Registration: recalls 2 of 3 objects. Recall at 5 minutes: recalls 1 of 3 objects. Follows 2 step commands. Attention: decreased. Concentration: decreased. Speech: slurred Level of consciousness: alert Knowledge: good. Able to perform simple calculations. Able to name object. Able to read. Able to repeat. Normal comprehension. Cranial Nerves CN II Right visual field deficit: none Left visual field deficit: none CN III, IV, Pupils are equal, round, and reactive to light. Extraocular motions are normal. CN III: no CN III palsy CN : no CN palsy Nystagmus: none Diplopia: none CN V Facial sensation intact. CN VII Facial expression full, symmetric. CN VIII CN VIII normal. CN IX, X CN IX normal. CN XI CN XI normal. CN XII CN XII normal. Motor Exam Muscle bulk: normal Overall muscle tone: normal Strength Strength 5/5 throughout. Sensory Exam Light touch normal. Gait, Coordination, and Reflexes Gait Gait: wide-based Coordination Romberg: positive Finger to nose coordination: abnormal Tremor Resting tremor: absent Intention tremor: absent Action tremor: absent Reflexes Right biceps: 2+ Left biceps: 2+ Right patellar: 2+ Left patellar: 2+ Physical Exam Constitutional: She is oriented to person, place, and time. Eyes: Pupils are equal, round, and reactive to light. EOM are normal. Fundoscopic exam: The right eye shows no hemorrhage and no papilledema. The left eye shows no hemorrhage and no papilledema. Neurological: She is oriented to person, place, and time. She has normal strength. She has an abnormal Jwijny-Cwsf-Ixbdsq Test and an abnormal Romberg Test. Reflex Scores: Bicep reflexes are 2+ on the right side and 2+ on the left side. Patellar reflexes are 2+ on the right side and 2+ on the left side. Psychiatric: Her speech is slurred. Labs: Recent Labs Lab 01/27/20 0558 WBC 8.6 RBC 4.06* HGB 12.1 HCT 37.0 MCV 91.1 MCH 29.8 MCHC 32.7* PLT 250 RDW 14.1 MPV 10.4 LYMC 1.96 MONOC 0.53 EOSC 0.25 BASOC 0.04 , Recent Labs Lab 01/27/20 0558 NA 142 K 3.4* CL 108* CO2 31.3 AGAP 2.7* BUN 9 CR 0.77 GFRNON 72* GFR 83* GLU 101 CA 8.8 , No results for input(s): PTT, INR in the last 168 hours., No results for input(s): TROP, CPK, MB in the last 168 hours., No results for input(s): PH, PCO2, PO2, B6VJRCOOGAIT, BICARBWB, BASEDEFICIT,BASEEXCESS in the last 168 hours. and Recent Labs Lab 01/27/20 1434 CHOL 236 TRI 101 HDL 69 LDL 147 Current Facility-Administered Medications: ??? acetaminophen (TYLENOL) tablet 650 mg, 650 mg, Oral, Q6H PRN, Chandra Stewart MD, 650 mg at 01/27/20 1347 ??? aspirin chewable tablet 81 mg, 81 mg, Oral, Daily, Chandra Stewart MD, 81 mg at 01/27/20 1608 ??? atorvastatin (LIPITOR) tablet 40 mg, 40 mg, Oral, Nightly at bedtime, Humphrey Chapin MD, 40 mg at01/26/20 203 ??? heparin (porcine) injection 5,000 Units, 5,000 Units, Subcutaneous, 2 times per day, Chandra Stewart MD ??? metoprolol tartrate (LOPRESSOR) tablet 25 mg, 25 mg, Oral, BID, Humphrey Chapin MD, 25 mg at 01/27/20 0955 Radiology: I personally looked at the MRI, here is her tiny stroke: Mri Brain Wwo Con Result Date: 01/26/2020 Exam: MRI brain No comparison INDICATION: Recent confusion and altered level of consciousness. TECHNIQUE: Precontrast and postcontrast imaging with 10 cc intravenous Dotarem. FINDINGS: Moderate diffuse volume loss. No mass effect, extra-axial fluid collection, or ventricular dilation. No findings for hemorrhage on the gradient images. Moderate focal and confluent deep white matter hyperintensity on FLAIR is probably small vessel disease. Some minimal patchy FLAIR hyperintensities within the [place]. On the diffusion images, there is a single, small focus of diffusion restriction in the deep white matter of the left temporal occipital region. This measures about 4 mm in size. This is low ADC signal and would be consistent with an acute lacunar stroke. Diffusion images are otherwise normal. Normal flow voids in the basilar and internal carotid arteries. Diminutive left vertebral artery. Normal orbits and paranasal sinuses. Normal postcontrast imaging. IMPRESSION: 1. Acute lacunar stroke in the deep white matter of the left temporal occipital region.2. Atrophy and probable small vessel disease. Interpreted By: Garth Mujica MD, 01/26/2020 6:30 PM ECG: No results found for this visit on 01/26/20. NIH Stroke Scale Documentation Level of Consciousness (1a. ): Alert, keenly responsive LOC Questions (1b. ): Answers both questions correctly LOC Commands (1c. ): Performs both tasks correctly Best Gaze (2. ): Normal Visual (3. ): No visual loss Facial Palsy (4. ): Normal symmetrical movements Motor Arm, Left (5a. ): No drift Motor Arm, Right (5b. ): No drift Motor Leg, Left (6a. ): No drift Motor Leg, Right (6b. ): No drift Limb Ataxia (7. ): Absent Sensory (8. ): Normal, no sensory loss Best Language (9. ): Ciyf-kx-qnnfjwuj aphasia Dysarthria (10. ): Normal Extinction and Inattention (Neglect): Normal, no Neglect Total: 1 (01/27/20 1100) Impression: Patient Active Problem List Diagnosis ??? Confusion @DIAG@ Orders Placed This Encounter ??? CBC W/DIFF AUTOMATED ??? BASIC METABOLIC PANEL ??? URINALYSIS ??? HEMOGLOBIN, GLYCOSYLATED ??? LIPID PANEL ??? CBC W/DIFF AUTOMATED ??? BASIC METABOLIC PANEL ??? Bed Rest ??? Vital Signs - Per Unit Routine ??? Cardiac Monitoring Until Discontinued ??? Daily weights ??? Measure intake and output ??? Nursing swallow assessment ??? Inpatient Consult to Neurology ??? MRI BRAIN WWO CON ??? USE ECHOCARDIOGRAM ??? US CAROTID DUPLEX CARLOS ??? EEG routine ??? metoprolol tartrate (LOPRESSOR) tablet 25 mg ??? atorvastatin (LIPITOR) tablet 40 mg ??? acetaminophen 500 MG tablet ??? ibuprofen 200 MG tablet ??? bismuth subsalicylate 525 MG/15ML Suspension suspension ??? psyllium 51.7 % packet ??? cranberry 450 MG Tab tablet ??? loperamide 2 MG capsule ??? docusate sodium 100 MG capsule ??? gadoterate meglumine (DOTAREM) 5 MMOL/10ML injection 10 mL ??? potassium chloride CR (KLOR-CON M) tablet 40 mEq ??? acetaminophen (TYLENOL) tablet 650 mg ??? aspirin chewable tablet 81 mg ??? heparin (porcine) injection 5,000 Units ??? CULTURE, URINE Plan: JAVI YOO MD 01/27/2020 4:54 PM documented in this encounter Nursing Notes * Romana Hankins RN - 01/28/2020 12:51 PM CDT CALLED FOR STROKE DOUBLE CHECK AND FAXED DC ORDERS TO [facility]. * Unique Mejia RN - 01/26/2020 5:10 PM CDT Called pts daughter rafaela gotti to obtain medication confirmation. documented in this encounter Plan of Treatment Not on file documented as of this encounter Procedures Procedure Name Priority Date/Time Associated Diagnosis Comments BASIC METABOLIC PANEL Routine 01/31/2020 5:09 AM CDT CBC W/DIFF AUTOMATED Routine 01/31/2020 5:08 AM CDT BASIC METABOLIC PANEL Routine 01/30/2020 7:16 AM CDT CBC W/DIFF AUTOMATED Routine 01/30/2020 7:16 AM CDT CLOSTRIDIUM DIFFICILE Nurse Collected Priority 01/30/2020 7:00 AM CDT BASIC METABOLIC PANEL Routine 01/29/2020 5:17 AM CDT CBC W/DIFF AUTOMATED Routine 01/29/2020 5:17 AM CDT BASIC METABOLIC PANEL Routine 01/28/2020 7:53 AM CDT CBC W/DIFF AUTOMATED Routine 01/28/2020 7:53 AM CDT HC URINALYSIS AUTO W/MICRO Nurse Collected Priority 01/28/2020 3:55 AM CDT URINE BACTERIA CULTURE Nurse Collected Priority 01/28/2020 3:55 AM CDT US CAROTID DUPLEX CARLOS Today 01/27/2020 8:20 PM CDT USE ECHOCARDIOGRAM Today 01/27/2020 3: 37 PM CDT HEMOGLOBIN, GLYCOSYLATED Routine 01/27/2020 2:34 PM CDT LIPID PANEL Routine 01/27/2020 2:34 PM CDT EEG AWAKE OR DROWSY ROUTINE Routine 01/27/2020 9:47 AM CDT BASIC METABOLIC PANEL Routine 01/27/2020 5:58 AM CDT CBC W/DIFF AUTOMATED Routine 01/27/2020 5:58 AM CDT MRI BRAIN WWO CON Today 01/26/2020 6:1 9 PM CDT documented in this encounter Results * (ABNORMAL) BASIC METABOLIC PANEL (01/31/2020 5:09 AM CDT) SODIUM S/P/B 141 136 - 145 MMOL/L 01/31/2020 5:51 AM CDT [facility] POTASSIUM S/P/B 3.1(L) 3.5 - 5.1 MMOL/L 01/31/2020 5:51 AM CDT [facility] CHLORIDE S/P/B 110(H) 98 - 107 MMOL/L 01/31/2020 5:51 AM T [facility] CO2 25.3 21.0 - 32.0 MMOL/L 01/31/2020 5:51 AM [facility] GLUCOSE 94 74 - 106 MG/DL 01/31/2020 5:51 AM [facility] BUN 23(H) 7 - 18 MG/DL 01/31/2020 5:51 AM T [facility] CREATININE S/P/B 0.81 0.55 - 1.02 MG/DL 01/31/2020 5:51 AM [facility] CALCIUM S/P/B 9.1 8.5 - 10.1 MG/DL 01/31/2020 5:51 AM [facility] ANION GAP 5.7 5.0 - 15.0 MMOL/L 01/31/2020 5:51 AM [facility] Comment:REFERENCE RANGE NOT ESTABLISHED OSMOLALITY (CALC) 295 MOSM/KG 020 5:51 AM [facility] Comment:REFERENCE RANGE NOT ESTABLISHED EGFR NON-AFR. AMER. 68(L) >90 ML/MIN/1. 73 M2 01/31/2020 5:51 AM [facility] EGFR AFR. AMER. 78(L) >90 ML/MIN/1. 73 M2 01/31/2020 5:51 AM [facility] GFR NOTES GFR REFERENCE S: 01/31/2020 5:51 AM [facility] Comment: THE ESTIMATED GFR IS CALCULATED USING THE 2009 CKD-EPI EQUATION. THE FOLLOWING CATEGORIES FOR GRADING RENAL FUNCTION ARE RECOMMENDED BY THE INTERNATIONAL SOCIETY OF NEPHROLOGY (KDIGO 2012 CLINICAL PRACTICE GUIDELINE). G1,NORMAL OR HIGH: >89 ml/min/1.73 m2 G2,MILDLY DECREASED: 60-89 ml/min/1.73 m2 G3A,MILDLY TO MODERATELY DECREASED: 45-59 ml/min/1.73 m2 G3B,MODERATELY TO SEVERELY DECREASED: 30-44 ml/min/1.73 m2 G4,SEVERELY DECREASED: 15-29 ml/min/1.73 m2 G5,KIDNEY FAILURE: <15 ml/min/1.73 m2 01/31/2020 5:09 AM CDT Chandra Stewart MD LABORATORY Final Result [facility] [address] [place] [address], [id number] * (ABNORMAL) CBC W/DIFF AUTOMATED (01/31/2020 5:08 AM CDT) WBC 9.6 4.0 - 10.8 x10'3/uL 01/31/2020 5:27 AM CDT [facility] RBC 4.13 4.10 - 5.40 x10'6/uL 01/31/2020 5:27 AM CDT [facility] HGB 12.0 12.0 - 16.0 G/DL 01/31/2020 5:27 AM CDT [facility] HCT 36.9 36.0 - 47.0 % 01/31/2020 5:27 AM CDT [facility] MCV 89.3 78.0 - 100.0 FL 01/31/2020 5:27 AM CDT [facility] MCH 29.1 27.0 - 31.0 PG 01/31/2020 5:27 AM CDT [facility] MCHC 32.5(L) 33.0 - 36.0 G/DL 01/31/2020 5:27 AM CDT [facility] RDW 14.1 11.5 - 14.5 % 01/31/2020 5:27 AM CDT [facility] PLT 296 150 - 350 x10'3/uL 01/31/2020 5:27 AM CDT [facility] MPV 10.9(H) 7.4 - 10.4 FL 01/31/2020 5:27 AM CDT [facility] ABS. NEUTROPHILS TOTAL 5.62 1.60 - 8.30 x10'3/uL 01/31/2020 5:27 AM CDT [facility] ABS. LYMPHOCYTES 2.87 0.80 - 4.70 x10'3/uL 01/31/2020 5:27 AM CDT [facility] ABS. MONOCYTES 0.72 0.00 - 1.50 x10'3/uL 01/31/2020 5:27 AM CDT [facility] ABS. EOSINOPHILS 0.25 0.00 - 0.40 x10'3/uL 01/31/2020 5:27 AM CDT [facility] ABS. BASOPHILS 0.06 0.00 - 0.20 x10'3/uL 01/31/2020 5:27 AM CDT [facility] ABS. IMMATURE GRANULOCYTES 0.03 0.00 - 0.03 x10'3/uL 01/31/2020 5:27 AM CDT [facility] ABS. NUCLEATED RBC'S 0.00 0.0 x10'3/uL 01/31/2020 5:27 AM CDT [facility] 01/31/2020 5:08 AM CDT Chandra Stewart MD LABORATORY Final Result [facility] [address] [place] [address], [id number] * (ABNORMAL) BASIC METABOLIC PANEL (01/30/2020 7:16 AM CDT) SODIUM S/P/B 140 136 - 145 MMOL/L 01/30/2020 7:50 AM CDT [facility] POTASSIUM S/P/B 3.3(L) 3.5 - 5.1 MMOL/L 01/30/2020 7:50 AM CDT [facility] CHLORIDE S/P/B 108(H) 98 - 107 MMOL/L 01/30/2020 7:50 AM CDT [facility] CO2 24.3 21.0 - 32.0 MMOL/L 01/30/2020 7:50 AM T [facility] GLUCOSE 98 74 - 106 MG/DL 01/30/2020 7:50 AM [facility] BUN 22(H) 7 - 18 MG/DL 01/30/2020 7:50 AM [facility] CREATININE S/P/B 0.92 0.55 - 1.02 MG/DL 01/30/2020 7:50 AM T [facility] CALCIUM S/P/B 9.0 8.5 - 10.1 MG/DL 01/30/2020 7:50 AM [facility] ANION GAP 7.7 5.0 - 15.0 MMOL/L 01/30/2020 7:50 AM [facility] Comment:REFERENCE RANGE NOT ESTABLISHED OSMOLALITY (CALC) 293 MOSM/KG 020 7:50 AM [facility] Comment:REFERENCE RANGE NOT ESTABLISHED EGFR NON-AFR. AMER. 58(L) >90 ML/MIN/1. 73 M2 01/30/2020 7:50 AM [facility] EGFR AFR. AMER. 67(L) >90 ML/MIN/1. 73 M2 01/30/2020 7:50 AM [facility] GFR NOTES GFR REFERENCE S: 01/30/2020 7:50 AM [facility] Comment: THE ESTIMATED GFR IS CALCULATED USING THE 2009 CKD-EPI EQUATION. THE FOLLOWING CATEGORIES FOR GRADING RENAL FUNCTION ARE RECOMMENDED BY THE INTERNATIONAL SOCIETY OF NEPHROLOGY (KDIGO 2012 CLINICAL PRACTICE GUIDELINE). G1,NORMAL OR HIGH: >89 ml/min/1.73 m2 G2,MILDLY DECREASED: 60-89 ml/min/1.73 m2 G3A,MILDLY TO MODERATELY DECREASED: 45-59 ml/min/1.73 m2 G3B,MODERATELY TO SEVERELY DECREASED: 30-44 ml/min/1.73 m2 G4,SEVERELY DECREASED: 15-29 ml/min/1.73 m2 G5,KIDNEY FAILURE: <15 ml/min/1.73 m2 01/30/2020 7:16 AM CDT Chandra Stewart MD LABORATORY Final Result [facility] [address] [place] [address], [id number] * (ABNORMAL) CBC W/DIFF AUTOMATED (01/30/2020 7:16 AM CDT) WBC 10.1 4.0 - 10.8 x10'3/uL 01/30/2020 7:23 AM CDT [facility] RBC 4.26 4.10 - 5.40 x10'6/uL 01/30/2020 7:23 AM CDT [facility] HGB 12.6 12.0 - 16.0 G/DL 01/30/2020 7:23 AM CDT [facility] HCT 37.9 36.0 - 47.0 % 01/30/2020 7:23 AM CDT [facility] MCV 89.0 78.0 - 100.0 FL 01/30/2020 7:23 AM CDT [facility] MCH 29.6 27.0 - 31.0 PG 01/30/2020 7:23 AM CDT [facility] MCHC 33.2 33.0 - 36.0 G/DL 01/30/2020 7:23 AM CDT [facility] RDW 14.1 11.5 - 14.5 % 01/30/2020 7:23 AM CDT [facility] PLT 301 150 - 350 x10'3/uL 01/30/2020 7:23 AM CDT [facility] MPV 10.5(H) 7.4 - 10.4 FL 01/30/2020 7:23 AM CDT [facility] ABS. NEUTROPHILS TOTAL 6.22 1.60 - 8.30 x10'3/uL 01/30/2020 7:23 AM CDT [facility] ABS. LYMPHOCYTES 2.86 0.80 - 4.70 x10'3/uL 01/30/2020 7:23 AM CDT [facility] ABS. MONOCYTES 0.75 0.00 - 1.50 x10'3/uL 01/30/2020 7:23 AM CDT [facility] ABS. EOSINOPHILS 0.10 0.00 - 0.40 x10'3/uL 01/30/2020 7:23 AM CDT [facility] ABS. BASOPHILS 0.08 0.00 - 0.20 x10'3/uL 01/30/2020 7:23 AM CDT [facility] ABS. IMMATURE GRANULOCYTES 0.04(H) 0.00 - 0.03 x10'3/uL 01/30/2020 7:23 AM CDT [facility] ABS. NUCLEATED RBC'S 0.00 0.0 x10'3/uL 01/30/2020 7:23 AM CDT [facility] 01/30/2020 7:16 AM CDT Chandra Stewart MD LABORATORY Final Result [facility] [address] [id number], [id number] * CLOSTRIDIUM DIFFICILE (01/30/2020 7:00 AM CDT) SPEC DESCRIPTION STOOL 01/30/2020 7:00 AM CDT [facility] SPECIAL REQUESTS NO SPECIAL REQUEST 01/30/2020 7:00 AM CDT [facility] RESULT TEST CANCELLED BY THE INFECTION PREVENTION DEPARTMENT. PER DR STEWART 01/30/2020 11:19 AM CDT [facility] STOOL SPECIMEN / Unknown 01/30/2020 7:00 AM CDT 01/30/2020 11:16 AM CDT Grecia Richards NP BODY FLUIDS AND STOOLS ORDER CHAPO Final Result [facility] [address] [place] [address], [id number] * (ABNORMAL) BASIC METABOLIC PANEL (01/29/2020 5:17 AM CDT) SODIUM S/P/B 139 136 - 145 MMOL/L 01/29/2020 6:44 AM CDT [facility] POTASSIUM S/P/B 3.4(L) 3.5 - 5.1 MMOL/L 01/29/2020 6:44 AM CDT [facility] CHLORIDE S/P/B 106 98 - 107 MMOL/L 01/29/2020 6:44 AM CDT [facility] CO2 27.0 21.0 - 32.0 MMOL/L 01/29/2020 6:44 AM CDT [facility] GLUCOSE 96 74 - 106 MG/DL 01/29/2020 6:44 AM CDT [facility] BUN 16 7 - 18 MG/DL 01/29/2020 6:44 AM CDT [facility] CREATININE S/P/B 0.80 0.55 - 1.02 MG/DL 01/29/2020 6:44 AM CDT [facility] CALCIUM S/P/B 9.1 8.5 - 10.1 MG/DL 01/29/2020 6:44 AM CDT [facility] ANION GAP 6.0 5.0 - 15.0 MMOL/L 01/29/2020 6:44 AM CDT [facility] Comment:REFERENCE RANGE NOT ESTABLISHED OSMOLALITY (CALC) 289 MOSM/KG 020 6:44 AM CDT [facility] Comment:REFERENCE RANGE NOT ESTABLISHED EGFR NON-AFR. AMER. 69(L) >90 ML/MIN/1. 73 M2 01/29/2020 6:44 AM CDT [facility] EGFR AFR. AMER. 80(L) >90 ML/MIN/1. 73 M2 01/29/2020 6:44 AM CDT [facility] GFR NOTES GFR REFERENCE S: 01/29/2020 6:44 AM CDT [facility] Comment: THE ESTIMATED GFR IS CALCULATED USING THE 2009 CKD-EPI EQUATION. THE FOLLOWING CATEGORIES FOR GRADING RENAL FUNCTION ARE RECOMMENDED BY THE INTERNATIONAL SOCIETY OF NEPHROLOGY (KDIGO 2012 CLINICAL PRACTICE GUIDELINE). G1,NORMAL OR HIGH: >89 ml/min/1.73 m2 G2,MILDLY DECREASED: 60-89 ml/min/1.73 m2 G3A,MILDLY TO MODERATELY DECREASED: 45-59 ml/min/1.73 m2 G3B,MODERATELY TO SEVERELY DECREASED: 30-44 ml/min/1.73 m2 G4,SEVERELY DECREASED: 15-29 ml/min/1.73 m2 G5,KIDNEY FAILURE: <15 ml/min/1.73 m2 01/29/2020 5:17 AM CDT us Chandra Stewart MD LABORATORY Final Result [facility] [address] [place] [address], [id number] * (ABNORMAL) CBC W/DIFF AUTOMATED (01/29/2020 5:17 AM CDT) WBC 9.0 4.0 - 10.8 x10'3/uL 01/29/2020 6:22 AM CDT [facility] RBC 4.01(L) 4.10 - 5.40 x10'6/uL 01/29/2020 6:22 AM CDT [facility] HGB 11.9(L) 12.0 - 16.0 G/DL 01/29/2020 6:22 AM CDT [facility] HCT 37.0 36.0 - 47.0 % 01/29/2020 6:22 AM CDT [facility] MCV 92.3 78.0 - 100.0 FL 01/29/2020 6:22 AM CDT [facility] MCH 29.7 27.0 - 31.0 PG 01/29/2020 6:22 AM CDT [facility] MCHC 32.2(L) 33.0 - 36.0 G/DL 01/29/2020 6:22 AM CDT [facility] RDW 14.0 11.5 - 14.5 % 01/29/2020 6:22 AM CDT [facility] PLT 284 150 - 350 x10'3/uL 01/29/2020 6:22 AM CDT [facility] MPV 11.1(H) 7.4 - 10.4 FL 01/29/2020 6:22 AM CDT [facility] ABS. NEUTROPHILS TOTAL 6.08 1.60 - 8.30 x10'3/uL 01/29/2020 6:22 AM CDT [facility] ABS. LYMPHOCYTES 2.13 0.80 - 4.70 x10'3/uL 01/29/2020 6:22 AM CDT [facility] ABS. MONOCYTES 0.64 0.00 - 1.50 x10'3/uL 01/29/2020 6:22 AM CDT [facility] ABS. EOSINOPHILS 0.12 0.00 - 0.40 x10'3/uL 01/29/2020 6:22 AM CDT [facility] ABS. BASOPHILS 0.04 0.00 - 0.20 x10'3/uL 01/29/2020 6:22 AM CDT [facility] ABS. IMMATURE GRANULOCYTES 0.03 0.00 - 0.03 x10'3/uL 01/29/2020 6:22 AM CDT [facility] ABS. NUCLEATED RBC'S 0.00 0.0 x10'3/uL 01/29/2020 6:22 AM CDT [facility] 01/29/2020 5:17 AM CDT us Chandra Stewart MD LABORATORY Final Result [facility] [address] [place] [address], [id number] * (ABNORMAL) BASIC METABOLIC PANEL (01/28/2020 7:53 AM CDT) SODIUM S/P/B 139 136 - 145 MMOL/L 01/28/2020 8:35 AM CDT [facility] POTASSIUM S/P/B 3.8 3.5 - 5.1 MMOL/L 01/28/2020 8:35 AM CDT [facility] CHLORIDE S/P/B 107 98 - 107 MMOL/L 01/28/2020 8:35 AM CDT [facility] CO2 26.9 21.0 - 32.0 MMOL/L 01/28/2020 8:35 AM CDT [facility] GLUCOSE 102 74 - 106 MG/DL 01/28/2020 8:35 AM CDT [facility] BUN 12 7 - 18 MG/DL 01/28/2020 8:35 AM CDT [facility] CREATININE S/P/B 0.74 0.55 - 1.02 MG/DL 01/28/2020 8:35 AM CDT [facility] CALCIUM S/P/B 9.2 8.5 - 10.1 MG/DL 01/28/2020 8:35 AM CDT [facility] ANION GAP 5.1 5.0 - 15.0 MMOL/L 01/28/2020 8:35 AM CDT [facility] Comment:REFERENCE RANGE NOT ESTABLISHED OSMOLALITY (CALC) 288 MOSM/KG 020 8:35 AM CDT [facility] Comment:REFERENCE RANGE NOT ESTABLISHED EGFR NON-AFR. AMER. 75(L) >90 ML/MIN/1. 73 M2 01/28/2020 8:35 AM CDT [facility] EGFR AFR. AMER. 87(L) >90 ML/MIN/1. 73 M2 01/28/2020 8:35 AM CDT [facility] GFR NOTES GFR REFERENCE S: 01/28/2020 8:35 AM CDT [facility] Comment: THE ESTIMATED GFR IS CALCULATED USING THE 2009 CKD-EPI EQUATION. THE FOLLOWING CATEGORIES FOR GRADING RENAL FUNCTION ARE RECOMMENDED BY THE [employer] OF NEPHROLOGY (KDIGO 2012 CLINICAL PRACTICE GUIDELINE). G1,NORMAL OR HIGH: >89 ml/min/1.73 m2 G2,MILDLY DECREASED: 60-89 ml/min/1.73 m2 G3A,MILDLY TO MODERATELY DECREASED: 45-59 ml/min/1.73 m2 G3B,MODERATELY TO SEVERELY DECREASED: 30-44 ml/min/1.73 m2 G4,SEVERELY DECREASED: 15-29 ml/min/1.73 m2 G5,KIDNEY FAILURE: <15 ml/min/1.73 m2 01/28/2020 7:53 AM CDT Chandra Stewart MD LABORATORY Final Result [facility] [address] [place] [address], [id number] * (ABNORMAL) CBC W/DIFF AUTOMATED (01/28/2020 7:53 AM CDT) WBC 10.4 4.0 - 10.8 x10'3/uL 01/28/2020 8:08 AM CDT [facility] RBC 4.07(L) 4.10 - 5.40 x10'6/uL 01/28/2020 8:08 AM CDT [facility] HGB 12.4 12.0 - 16.0 G/DL 01/28/2020 8:08 AM CDT [facility] HCT 37.2 36.0 - 47.0 % 01/28/2020 8:08 AM CDT [facility] MCV 91.4 78.0 - 100.0 FL 01/28/2020 8:08 AM CDT [facility] MCH 30.5 27.0 - 31.0 PG 01/28/2020 8:08 AM CDT [facility] MCHC 33.3 33.0 - 36.0 G/DL 01/28/2020 8:08 AM CDT [facility] RDW 13.8 11.5 - 14.5 % 01/28/2020 8:08 AM CDT [facility] PLT 266 150 - 350 x10'3/uL 01/28/2020 8:08 AM CDT [facility] MPV 10.7(H) 7.4 - 10.4 FL 01/28/2020 8:08 AM CDT [facility] ABS. NEUTROPHILS TOTAL 8.56(H) 1.60 - 8.30 x10'3/uL 01/28/2020 8:08 AM CDT [facility] ABS. LYMPHOCYTES 1.29 0.80 - 4.70 x10'3/uL 01/28/2020 8:08 AM CDT [facility] ABS. MONOCYTES 0.48 0.00 - 1.50 x10'3/uL 01/28/2020 8:08 AM CDT [facility] ABS. EOSINOPHILS 0.01 0.00 - 0.40 x10'3/uL 01/28/2020 8:08 AM CDT [facility] ABS. BASOPHILS 0.04 0.00 - 0.20 x10'3/uL 01/28/2020 8:08 AM CDT [facility] ABS. IMMATURE GRANULOCYTES 0.04(H) 0.00 - 0.03 x10'3/uL 01/28/2020 8:08 AM CDT [facility] ABS. NUCLEATED RBC'S 0.00 0.0 x10'3/uL 01/28/2020 8:08 AM CDT [facility] 01/28/2020 7:53 AM CDT us Chandra Stewart MD LABORATORY Final Result [facility] [address] [place] [address], [id number] * CULTURE, URINE (01/28/2020 3:55 AM CDT) SPEC DESCRIPTION URINE CLEAN CATCH 01/28/2020 3:54 AM CDT [facility] SPECIAL REQUESTS NO SPECIAL REQUEST 01/28/2020 3:54 AM CDT [facility] CULTURE RESULT >100,000 CFU/mL ENTEROCOCCUS FAECALIS 01/29/2020 8:32 PM CDT [facility] URINE SPECIMEN OBTAINED BY CLEAN CATCH PROCEDURE / Unknown 01/28/2020 3:55 AM CDT 01/28/2020 4:25 AM CDT Narrative Organism Antibiotic Method Susceptibility Enterococcus faecalis AMPICILLIN LEO (VITEK) Sensitive Enterococcus faecalis NITROFURANTOIN LEO (VITEK) Sensitive Enterococcus faecalis GENT. SYNERGY SCREEN LEO (VITEK) Sensitive Enterococcus faecalis LINEZOLID LEO (VITEK) Sensitive Enterococcus faecalis PENICILLIN G LEO (VITEK) Sensitive Enterococcus faecalis STR. SYNERGY SCR LEO (VITEK) Sensitive Enterococcus faecalis TETRACYCLINE LEO (VITEK) Sensitive Enterococcus faecalis TIGECYCLINE LEO (VITEK) Sensitive Enterococcus faecalis VANCOMYCIN LEO (VITEK) Sensitive us Chandra Stewart MD MICROBIOLOGY - GENERAL ORDERABLE S Final Result [facility] [address] [place] [address], [id number] * (ABNORMAL) URINALYSIS (01/28/2020 3:55 AM CDT) COLOR (U) LIGHT YELLOW 01/28/2020 5:07 AM CDT [facility] TRANSPARENCY HAZY 01/28/2020 5:07 AM CDT [facility] SPECIFIC GRAVITY (U) 1.013 1.002 - 1.035 01/28/2020 5:07 AM CDT [facility] U PH 7.0 5 - 8 01/28/2020 5:07 AM CDT [facility] PROTEIN (U) 30(A) NEGATIVE 01/28/2020 5:07 AM CDT [facility] URINE GLUCOSE NEGATIVE NEGATIVE MG/DL 01/28/2020 5:07 AM CDT [facility] KETONES MG/DL (U) TRACE(A) NEGATIVE 01/28/2020 5:07 AM CDT [facility] BILIRUBIN (U) NEGATIVE NEGATIVE 01/28/2020 5:07 AM CDT [facility] BLOOD (U) SMALL(A) NEGATIVE 01/28/2020 5:07 AM CDT [facility] NITRITES NEGATIVE NEGATIVE 01/28/2020 5:07 AM CDT [facility] UROBILINOGEN NORMAL 0 - 1 EU/DL 01/28/2020 5:07 AM CDT [facility] LEUKOCYTES (U) MODERATE(A) NEGATIVE 0 5:07 AM CDT [facility] RBC/HPF 5(H) 0 - 3 /HPF 01/28/2020 5:07 AM CDT [facility] WBC/HPF 158(H) 0 - 6 /HPF 01/28/2020 5:07 AM CDT [facility] BACTERIA (U) NONE /HPF 01/28/2020 5:07 AM CDT [facility] SQUAMOUS EPITHELIALS 3 01/28/2020 5:07 AM CDT [facility] URINE SPECIMEN OBTAINED BY CLEAN CATCH PROCEDURE / Unknown 01/28/2020 3:55 AM CDT us Chandra Stewart MD URINE ORDERABLES Final Result [facility] [address] [place] [address], [id number] * US CAROTID DUPLEX CARLOS (01/27/2020 8:20 PM CDT) Anatomical Region Laterality Modality NA Ultrasound 01/27/2020 9:23 PM CDT Impressions 01/27/2020 9:29 PM CDT IMPRESSION: 1. ??No significant plaque formation. 2. ??Velocity measurements correlate with less than 50% stenosis. Interpreted By: Garth Mujica MD, 01/27/2020 9:23 PM Narrative 01/27/2020 9:29 PM CDT EXAM: CAROTID ARTERY ULTRASOUND BILATERAL COMPARISON: None INDICATION: Stroke TECHNIQUE: Fisher scale, color doppler, and spectral waveform analysis performed. FINDINGS: Fisher Scale: There is probably some mild intimal thickening in the common carotid arteries. ??No demonstrable plaque on either side. Antegrade vertebral artery flow bilaterally. Right-sided peak systolic velocities in cm/s: CCA 122, ICA 97, ECA 102, ICA/CCA ratio: 0.8. Left-sided peak systolic velocities in cm/s: CCA 105, ICA 110, ECA 91, ICA/CCA ratio: 1.1. Procedure Note Garth Mujica MD - 01/27/2020 EXAM: CAROTID ARTERY ULTRASOUND BILATERAL COMPARISON: None INDICATION: Stroke TECHNIQUE: Fisher scale, color doppler, and spectral waveform analysisperformed. FINDINGS: Fisher Scale: There is probably some mild intimal thickening in the commoncarotid arteries. No demonstrable plaque on either side. Antegrade vertebral artery flow bilaterally. Right-sided peak systolic velocities in cm/s: CCA 122, ICA 97, ECA 102,ICA/CCA ratio: 0.8. Left-sided peak systolic velocities in cm/s: CCA 105, ICA 110, ECA 91,ICA/CCA ratio: 1.1. IMPRESSION: 1. No significant plaque formation. 2. Velocity measurements correlate with less than 50% stenosis. Interpreted By: Garth Mujica MD, 01/27/2020 9:23 PM Chandra Stewart MD ULTRASOUND Final Result * USE ECHOCARDIOGRAM (01/27/2020 3:37 PM CDT) Anatomical Region Laterality Modality Cardiac Echocardiogram 01/27/2020 2:38 PM CDT Narrative 01/27/2020 8:21 PM CDT ?Echocardiography Report Pat.Name: ??MACHUGA, BRENDA ? Pat.ID: ?[id number] ? St.Date: ?? 01/27/2020 ? Refer.MD: ??CHANDRA STEWART ? Exam Time: 2:38:00 PM ? Study Type:ECHO WITH CARDIAC DOPPLER COMP Height: ?165cm ? Weight: ?58.1kg ? BSA: ? 1.64 m2 ?Age: ??1935,84Y ? Sex: ? FEMALE ?HR: ?75 bpm ? Sonogrphr: Bolivar Iqbal RDCS ? Pat. Stat.:Inpatient ? Room: ?830 ? CPT - 4: ?03270 ? Reason for Study: TIA ? Procedures: ??2D, M-mode, Doppler, Color Flow, Portable, The study quality is technically adequate. Race: ? ++++++++++++++++++++++++++++++++++++ SUMMARY: ++++++++++++++++++++++++++++++++++++ The left ventricular size is normal. The left ventricular systolic function is hyperdynamic. ??Estimated left ventricular ejection fraction is greater than 70%. Moderate concentric left ventricular hypertrophy. Left ventricular relaxation is impaired. The right ventricle is normal. The left atrial size is moderately enlarged. Ascending aorta is mildly dilated--4cm. Probable mild to moderate aortic regurgitation. Trace tricuspid regurgitation. ++++++++++++++++++++++++++++++++++++ FINDINGS: ++++++++++++++++++++++++++++++++++++ LV: ? The left ventricular size is normal. The left ventricular ?systolic ??function is hyperdynamic. The calculated ejection ?fraction ??is 67%. Estimated left ventricular ejection ?fraction ??is greater than 70%. Moderate concentric left ?ventricular ??hypertrophy. The septal E/e' is indeterminate ?at ??8-15. The lateral E/e' is normal at <8. The average E/e' ?is ??indeterminate at 9-12 and EF is > or equal to 50. Left ?ventricular ??relaxation is impaired. WM: ? Wall motion appears normal in all segments. LVOT: ? The left ventricular outflow tract size is normal. RV: ? The right ventricle size is normal. The right ventricular ?function ??is normal. LA: ? The left atrial size is moderately enlarged. RA: ? Right atrial size is normal. IAS: ?Atrial septum appears intact. APRIL: ? No evidence of pericardial effusion. AO: ? Ascending aorta is mildly dilated. The aortic root measures ?2.8 ??cm. The proximal ascending aorta measures 4cm. PA: ? Unable to reliably quantitate pulmonary systolic pressure. PVn: ?Pulmonary veins are not assessable. SVn: ?Inferior vena cava is normal. Inferior vena cava shows >50% ?collapse ??with respiration consistent with normal right ?atrial ??pressure. AV: ? The aortic valve is trileaflet. Mild to moderate aortic ?regurgitation. ??Mild calcification of aortic valve leaflets. MV: ? No evidence of mitral regurgitation. No evidence of mitral ?stenosis. ??Mild thickening of mitral valve leaflets. PV: ? Pulmonic valve not well visualized. TV: ? Structurally normal tricuspid valve. A trace of tricuspid ?regurgitation. ??No evidence of tricuspid valve stenosis. ++++++++++++++++++++++++++++++++++++ MEASUREMENTS: ++++++++++++++++++++++++++++++++++++ ?DOPPLER LVOT ?? LVOTpkPG ? 5 mmHg ?LVOTmnPG ? 3 mmHg LVOTpkVel ?117 cm/s (70-110) LVOT SV ? 60 ml ?? Index ?36.6 ml/m2 LVOT TVI ?29.8 cm ? AV Forward Flow AV TVI ?28.8 cm ?AV pkPG ?8 mmHg AV pkVel ? 138 cm/s (100-170) Area (TVI) ?2.08 cm2 ??(3-5) Index ?1.27 cm2/m2 AV mnVel ?89.5 cm/s ?Area (Juvenal) ? 1.7 cm2 ??(3-5) AV mnPG ?4 mmHg ? MV Forward Flow MV DeTm ?225 ms ?MV E/A ? 1 ? MVA P1/2t ? 3.33 cm2 ??(4-6) ?MV pkE ?68.9 cm/s (60-130) MV P1/2t ?66 ms ?? (30-60) ??MV pkA ?69.4 cm/s Lat E' ?? Lat e ? 10.2 cm/s ? Lat E/E' ?? Lat E/e ?6.8 ? Med E' ?? Med e ? 6.31 cm/s ? Med E/E' ?? Med E/e ? 10.9 ? Aortic Valve ?? Aortic Valve Ar ??1.27 ?Aortic Valve Ve ??0.85 ? AV DI ?? Value ?1 ? YESSENIA (VTI) Index ?? Value ? 1.27 ? LV Mass 2D ?? Value ?126 g ? LV Mass [id number] ?? Value ? 76.8 g/m2 ? Right Ventricle ?? Right Ventricle ??17.7 cm/s ?2D Left Ventricle ?? LVIDd ? 3.63 cm ?? (3.6-5.2) LV EF(Bi-Plane) ??67.6 % ?(55-75) LVIDs ? 2.29 cm ?? (2.3-3.9) LVPW ?? LVPWd ? 1.17 cm ?LVPWth ?74.4 % ?? LVPWs ? 2.04 cm ? Ventricular Septum ?? IVSd ?1.03 cm ?IVSs ?1.52 cm ?? Left Atrium ?? LA a-p ?3.43 cm ?? (2.8-3.4) Aorta ?? Ao Rtd ? 2.8 cm ?? (zsc 0.7) Ao Asc ? 4 cm ?? (zsc 6.5) Index ?2.44 cm/m2 LVOT ?? LVOT ? 1.6 cm ? Ratios ?? IVS ?MMODE TA ?? Tricuspid Annul ??2.35 cm ? Signed 01/27/2020 08:21 PM Serena Ibrahim M.D. Procedure Note Serena Ibrahim MD - 01/27/2020 Echocardiography Report Pat.Name: BRENDA GOTTI Pat.ID: [id number] .Date: 01/27/2020 Refer.MD: CHANDRA STEWART Exam Time: 2:38:00 PM Study Type:ECHO WITH CARDIAC DOPPLER COMP Height: 165cm Weight: 58.1kg BSA: 1.64 m2 Age: 8 1935,84Y Sex: FEMALE HR: 75 bpm Sonogrphr: Bolivar Iqbal RDCS Pat. Stat.:Inpatient Room: 830 CPT - 4: 53355 Reason for Study: TIA Procedures: 2D, M-mode, Doppler, Color Flow, Portable, The study quality is technically adequate. Race: ++++++++++++++++++++++++++++++++++++ SUMMARY: ++++++++++++++++++++++++++++++++++++ The left ventricular size is normal. The left ventricular systolic function is hyperdynamic. Estimated left ventricular ejection fraction is greater than 70%. Moderate concentric left ventricular hypertrophy. Left ventricular relaxation is impaired. The right ventricle is normal. The left atrial size is moderately enlarged. Ascending aorta is mildly dilated--4cm. Probable mild to moderate aortic regurgitation. Trace tricuspid regurgitation. ++++++++++++++++++++++++++++++++++++ FINDINGS: ++++++++++++++++++++++++++++++++++++ LV: The left ventricular size is normal. The left ventricular systolic function is hyperdynamic. The calculated ejection fraction is 67%. Estimated left ventricular ejection fraction is greater than 70%. Moderate concentric left ventricular hypertrophy. The septal E/e' is indeterminate at 8-15. The lateral E/e' is normal at <8. The average E/e' is indeterminate at 9-12 and EF is > or equal to 50. Left ventricular relaxation is impaired. WM: Wall motion appears normal in all segments. LVOT: The left ventricular outflow tract size is normal. RV: The right ventricle size is normal. The right ventricular function is normal. LA: The left atrial size is moderately enlarged. RA: Right atrial size is normal. IAS: Atrial septum appears intact. APRIL: No evidence of pericardial effusion. AO: Ascending aorta is mildly dilated. The aortic root measures 2.8 cm. The proximal ascending aorta measures 4cm. PA: Unable to reliably quantitate pulmonary systolic pressure. PVn: Pulmonary veins are not assessable. SVn: Inferior vena cava is normal. Inferior vena cava shows >50% collapse with respiration consistent with normal right atrial pressure. AV: The aortic valve is trileaflet. Mild to moderate aortic regurgitation. Mild calcification of aortic valve leaflets. MV: No evidence of mitral regurgitation. No evidence of mitral stenosis. Mild thickening of mitral valve leaflets. PV: Pulmonic valve not well visualized. TV: Structurally normal tricuspid valve. A trace of tricuspid regurgitation. No evidence of tricuspid valve stenosis. ++++++++++++++++++++++++++++++++++++ MEASUREMENTS: ++++++++++++++++++++++++++++++++++++ DOPPLER LVOT LVOTpkPG 5 mmHg LVOTmnPG 3 mmHg LVOTpkVel 117 cm/s (70-110) LVOT SV 60 ml Index 36.6 ml/m2 LVOT TVI 29.8 cm AV Forward Flow AV TVI 28.8 cm AV pkPG 8 mmHg AV pkVel 138 cm/s (100-170) Area (TVI) 2.08 cm2 (3-5) Index 1.27 cm2/m2 AV mnVel 89.5 cm/s Area (Juvenal) 1.7 cm2 (3-5) AV mnPG 4 mmHg MV Forward Flow MV DeTm 225 ms MV E/A 1 MVA P1/2t 3.33 cm2 (4-6) MV pkE 68.9 cm/s (60-130) MV P1/2t 66 ms (30-60) MV pkA 69.4 cm/s Lat E' Lat e 10.2 cm/s Lat E/E' Lat E/e 6.8 Med E' Med e 6.31 cm/s Med E/E' Med E/e 10.9 Aortic Valve Aortic Valve Ar 1.27 Aortic Valve Ve 0.85 AV DI Value 1 YESSENIA (VTI) Index Value 1.27 LV Mass 2D Value 126 g LV Mass Micks4I Value 76.8 g/m2 Right Ventricle Right Ventricle 17.7 cm/s 2D Left Ventricle LVIDd 3.63 cm (3.6-5.2) LV EF(Bi-Plane) 67.6 % (55-75) LVIDs 2.29 cm (2.3-3.9) LVPW LVPWd 1.17 cm LVPWth 74.4 % LVPWs 2.04 cm Ventricular Septum IVSd 1.03 cm IVSs 1.52 cm Left Atrium LA a-p 3.43 cm (2.8-3.4) Aorta Ao Rtd 2.8 cm (zsc 0.7) Ao Asc 4 cm (zsc 6.5) Index 2.44 cm/m2 LVOT LVOT 1.6 cm Ratios IVS MMODE TA Tricuspid Annul 2.35 cm Signed 01/27/2020 08:21 PM Serena Ibrahim M.D. Chandra Stewart MD ECHO Final Result * LIPID PANEL (01/27/2020 2:34 PM CDT) Pathologist [facility] CHOLESTEROL 236 MG/DL 01/27/2020 3:27 PM CDT [facility] Comment:BORDERLINE HIGH: 200 -239 TRIGLYCERIDES 101 MG/DL 01/27/2020 3:27 PM CDT [facility] Comment:<150 NORMAL HDL 69 >49 MG/DL 01/27/2020 3:27 PM CDT [facility] LDL (CALCULATED) 147 MG/DL 01/27/20 3:27 PM CDT [facility] Comment:130-159 BORDERLINE H IGH VLDL CALCULATION 20 MG/DL 01/27/20 3:27 PM CDT [facility] Comment:REFERENCE RANGE NOT ESTABLISHED CHOL/HDL RATIO 3.4 01/27/2020 3:27 PM CDT [facility] Comment:REFERENCE RANGE NOT ESTABLISHED LDL/HDL 2.1 01/27/2020 3:27 PM CDT [facility] Comment:REFERENCE RANGE NOT ESTABLISHED NON HDL CHOLESTEROL 167 MG/DL 01/27/2020 3:27 PM CDT [facility] Comment:REFERENCE RANGE NOT ESTABLISHED 01/27/2020 2:34 PM CDT Chandra Stewart MD LABORATORY Final Result [facility] [address] [place] [address], [id number] * HEMOGLOBIN, GLYCOSYLATED (01/27/2020 2:34 PM CDT) Pathologist [facility] HGB A1C 5.1 <5.7 % 01/27/2020 7:28 PM CDT [facility] ESTIMATED AVG GLUCOSE 100 74 - 114 MG/DL 01/27/2020 7:28 PM CDT [facility] 01/27/2020 2:34 PM CDT Chandra Stewart MD LABORATORY Final Result [facility] [address] [place] [address], [phone] [id number] * EEG routine (01/27/2020 9:47 AM CDT) Narrative [facility] - 01/27/2020 9:47 AM CDT Krupa Santos MD ? 01/27/2020 ??9:54 AM Prolonged routine (~41 mins) Electroencephalogram (EEG) report: Patient name: Brenda Gotti Date of : 1935 Medical Record: [id number] Age: 84-year-old Date of procedure: 01/27/20, from 0702 to 0743 Referring Physician: Chandra Stewart MD Clinical History: Patient with altered mental status, concern for possible seizures. Diagnosis code: Seizures/Events NOS R56.9 Current Medications: lipitor, metoprolol Technical Summary: A routine EEG with 21-channel digital EEG with single - channel EKG, was recorded using a Nukona system at a sampling rate of 200 Hz. Scalp electrodes were placed with 10-20 paste following the 10-20 International System. Additional anterior temporal electrodes were used for this recording. ??A variety of referential and bipolar montages were used to analyze the data. ?? Findings: The waking background was characterized by a reactive, moderately well organized mixture of alpha, beta and some theta with a symmetric 8-8.5 Hertz posterior dominant rhythm (PDR). The anterior to posterior gradient of frequency and amplitude was preserved. During drowsiness, slow roving eye movements, attenuation and fragmentation of the posterior dominant rhythm and diffuse background slowing was observed. Periods of sleep with symmetric and synchronous sleep spindles were noted. Mild generalized slowing was present due to presence of mild excess of theta frequency activity diffusely. Mild superimposed focal slowing was noted over the left hemisphere characterized by additional polymorphic delta frequency activity. No epileptiform discharges were seen. Activation Procedures: Intermittent photic stimulation was performed between 3-30 Hertz. This was not associated with a signficant change from the background (normal response). Hyperventilation was not performed. EKG: A single lead EKG showed regular rhythm with a heart rate of approximately 60-70 bpm. Events: No clinical or electrographic seizures were recorded. Impression: This is an abnormal prolonged routine EEG recorded in awake and drowsy state/(s) due to the presence of: 1. Mild diffuse slowing 2. Superimposed focal slowing over the left hemisphere. No epileptiform discharges or seizures were noted. Clinical Correlation: ?? This abnormal EEG is consistent with a mild diffuse cerebral dysfunction (encephalopathy) with a possible superimposed focal structural or physiologic abnormality in the left hemisphere. The lack of epileptiform activity does not preclude a potential diagnosis of epilepsy. us Humphrey Chapin MD NEUROLOGY ORDERABLES Final Resul t [facility] [address] [place] [address], [id number] * (ABNORMAL) BASIC METABOLIC PANEL (01/27/2020 5:58 AM CDT) SODIUM S/P/B 142 136 - 145 MMOL/L 01/27/2020 6:46 AM CDT [facility] POTASSIUM S/P/B 3.4(L) 3.5 - 5.1 MMOL/L 01/27/2020 6:46 AM CDT [facility] CHLORIDE S/P/B 108(H) 98 - 107 MMOL/L 01/27/2020 6:46 AM CDT [facility] CO2 31.3 21.0 - 32.0 MMOL/L 01/27/2020 6:46 AM CDT [facility] GLUCOSE 101 74 - 106 MG/DL 01/27/2020 6:46 AM CDT [facility] BUN 9 7 - 18 MG/DL 01/27/2020 6:46 AM CDT [facility] CREATININE S/P/B 0.77 0.55 - 1.02 MG/DL 01/27/2020 6:46 AM CDT [facility] CALCIUM S/P/B 8.8 8.5 - 10.1 MG/DL 01/27/2020 6:46 AM CDT [facility] ANION GAP 2.7(L) 5.0 - 15.0 MMOL/L 01/27/2020 6:46 AM CDT [facility] Comment:REFERENCE RANGE NOT ESTABLISHED OSMOLALITY (CALC) 293 MOSM/KG 020 6:46 AM CDT [facility] Comment:REFERENCE RANGE NOT ESTABLISHED EGFR NON-AFR. AMER. 72(L) >90 ML/MIN/1. 73 M2 01/27/2020 6:46 AM CDT [facility] EGFR AFR. AMER. 83(L) >90 ML/MIN/1. 73 M2 01/27/2020 6:46 AM CDT [facility] GFR NOTES GFR REFERENCE S: 01/27/2020 6:46 AM T [facility] Comment: THE ESTIMATED GFR IS CALCULATED USING THE 2009 CKD-EPI EQUATION. THE FOLLOWING CATEGORIES FOR GRADING RENAL FUNCTION ARE RECOMMENDED BY THE INTERNATIONAL SOCIETY OF NEPHROLOGY (KDIGO 2012 CLINICAL PRACTICE GUIDELINE). G1,NORMAL OR HIGH: >89 ml/min/1.73 m2 G2,MILDLY DECREASED: 60-89 ml/min/1.73 m2 G3A,MILDLY TO MODERATELY DECREASED: 45-59 ml/min/1.73 m2 G3B,MODERATELY TO SEVERELY DECREASED: 30-44 ml/min/1.73 m2 G4,SEVERELY DECREASED: 15-29 ml/min/1.73 m2 G5,KIDNEY FAILURE: <15 ml/min/1.73 m2 01/27/2020 5:58 AM CDT us Humphrey Chapin MD LABORATORY Final Result [facility] [address] [place] [address], [id number] * (ABNORMAL) CBC W/DIFF AUTOMATED (01/27/2020 5:58 AM CDT) WBC 8.6 4.0 - 10.8 x10'3/uL 01/27/2020 6:25 AM CDT [facility] RBC 4.06(L) 4.10 - 5.40 x10'6/uL 01/27/2020 6:25 AM CDT [facility] HGB 12.1 12.0 - 16.0 G/DL 01/27/2020 6:25 AM CDT [facility] HCT 37.0 36.0 - 47.0 % 01/27/2020 6:25 AM CDT [facility] MCV 91.1 78.0 - 100.0 FL 01/27/2020 6:25 AM CDT [facility] MCH 29.8 27.0 - 31.0 PG 01/27/2020 6:25 AM CDT [facility] MCHC 32.7(L) 33.0 - 36.0 G/DL 01/27/2020 6:25 AM CDT [facility] RDW 14.1 11.5 - 14.5 % 01/27/2020 6:25 AM CDT [facility] PLT 250 150 - 350 x10'3/uL 01/27/2020 6:25 AM CDT [facility] MPV 10.4 7.4 - 10.4 FL 01/27/2020 6:25 AM CDT [facility] ABS. NEUTROPHILS TOTAL 5.82 1.60 - 8.30 x10'3/uL 01/27/2020 6:25 AM CDT [facility] ABS. LYMPHOCYTES 1.96 0.80 - 4.70 x10'3/uL 01/27/2020 6:25 AM CDT [facility] ABS. MONOCYTES 0.53 0.00 - 1.50 x10'3/uL 01/27/2020 6:25 AM CDT [facility] ABS. EOSINOPHILS 0.25 0.00 - 0.40 x10'3/uL 01/27/2020 6:25 AM CDT [facility] ABS. BASOPHILS 0.04 0.00 - 0.20 x10'3/uL 01/27/2020 6:25 AM CDT [facility] ABS. IMMATURE GRANULOCYTES 0.03 0.00 - 0.03 x10'3/uL 01/27/2020 6:25 AM CDT [facility] ABS. NUCLEATED RBC'S 0.00 0.0 x10'3/uL 01/27/2020 6:25 AM CDT [facility] 01/27/2020 5:58 AM CDT Humphrey Chapin MD LABORATORY Final Result [facility] [address] [place] [address], [id number] * MRI BRAIN WWO CON (01/26/2020 6:19 PM CDT) Anatomical Region Laterality Modality Head Magnetic Resonan ce 01/26/2020 6:30 PM CDT Impressions 01/26/2020 6:39 PM CDT IMPRESSION: 1. ??Acute lacunar stroke in the deep white matter of the left temporal occipital region. 2. ??Atrophy and probable small vessel disease. Interpreted By: Garth Mujica MD, 01/26/2020 6:30 PM Narrative 01/26/2020 6:39 PM CDT Exam: MRI brain No comparison INDICATION: Recent confusion and altered level of consciousness. TECHNIQUE: Precontrast and postcontrast imaging with 10 cc intravenous Dotarem. FINDINGS: Moderate diffuse volume loss. ??No mass effect, extra-axial fluid collection, or ventricular dilation. ??No findings for hemorrhage on the gradient images. ??Moderate focal and confluent deep white matter hyperintensity on FLAIR is probably small vessel disease. ??Some minimal patchy FLAIR hyperintensities within the marina. On the diffusion images, there is a single, small focus of diffusion restriction in the deep white matter of the left temporal occipital region. ??This measures about 4 mm in size. ??This is low ADC signal and would be consistent with an acute lacunar stroke. ??Diffusion images are otherwise normal. Normal flow voids in the basilar and internal carotid arteries. ??Diminutive left vertebral artery. ??Normal orbits and paranasal sinuses. ??Normal postcontrast imaging. Procedure Note Garth Mujica MD - 01/26/2020 Exam: MRI brain No comparison INDICATION: Recent confusion and altered level of consciousness. TECHNIQUE: Precontrast and postcontrast imaging with 10 cc intravenousDotarem. FINDINGS: Moderate diffuse volume loss. No mass effect, extra-axial fluidcollection, or ventricular dilation. No findings for hemorrhage on thegradient images. Moderate focal and confluent deep white matterhyperintensity on FLAIR is probably small vessel disease. Some minimalpatchy FLAIR hyperintensities within the marina. On the diffusion images, there is a single, small focus of diffusionrestriction in the deep white matter of the left temporal occipitalregion. This measures about 4 mm in size. This is low ADC signal andwould be consistent with an acute lacunar stroke. Diffusion images areotherwise normal. Normal flow voids in the basilar and internal carotid arteries.Diminutive left vertebral artery. Normal orbits and paranasal sinuses.Normal postcontrast imaging. IMPRESSION: 1. Acute lacunar stroke in the deep white matter of the left temporaloccipital region. 2. Atrophy and probable small vessel disease. 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 Given 01/31/2020 1:04 PM CDT 650 mg Given 01/31/2020 6:42 AM CDT 650 mg Given 01/31/2020 12:08 AM CDT 650 mg amoxicillin (AMOXIL) capsule 500 mg 500 mg, Oral, Every 12 hours scheduled (2 times per day), First dose on Fri01/30/20 at 2100, Until Discontinued Given 01/31/2020 8:50 AM CDT 500 mg Given 01/30/2020 8:46 PM CDT 500 mg aspirin chewable tablet 81 mg 81 mg, Oral, Daily, First dose on Fri01/27/20 at 1430, Until Discontinued Given 01/31/2020 8:50 AM CDT 81 mg Given 01/30/2020 9:18 AM CDT 81 mg Given 01/29/2020 9:49 AM CDT 81 mg atorvastatin (LIPITOR) tablet 40 mg 40 mg, Oral, Nightly at bedtime, First dose on Fri01/26/20 at 2100, Until Discontinued Given 01/30/2020 8:47 PM CDT 40 m g Given 01/29/2020 8:37 PM CDT 40 mg Given 01/28/2020 8:23 PM CDT 40 mg cefTRIAXone (ROCEPHIN) 1 g in sodium chloride 0.9 % 50 mL IVPB 1 g, Intravenous, at 100 mL/hr, Every 24 hours, First dose on Fri01/28/20 at 1230, Until Discontinued New Bag 01/30/2020 11:37 AM CDT 1 g 10 0 mL/hr New Bag 01/29/2020 12:49 PM CDT 1 g 100 mL/hr New Bag 01/28/2020 2:10 PM CDT 1 g 100 mL/hr gadoterate meglumine (DOTAREM) 5 MMOL/10ML injection 10 mL 10 mL, Intravenous, IMG once as needed, Contrast, Contrast, 1 dose, Starting on Fri01/26/20 at 1826, Until Fri01/26/20 at 1827 Given 01/26/2020 6:27 PM CDT 10 mLs heparin (porcine) injection 5,000 Units 5,000 Units, Subcutaneous, Every 12 hours scheduled (2 times per day), First dose on Fri01/27/20 at 2100, Until Discontinued Given 01/31/2020 8:49 AM CDT 5,000 Units Left Lower Abdomen Given 01/30/2020 8:47 PM CDT 5,000 Units L eft Arm Given 01/30/2020 9:18 AM CDT 5,000 Units R ight Lower Abdomen lisinopril (PRINIVIL) tablet 2.5 mg 2.5 mg, Oral, Daily, First dose on Fri01/28/20 at 1530, Until Discontinued Given 01/31/2020 8:50 AM CDT 2.5 mg Given 01/30/2020 9:17 AM CDT 2.5 mg Given 01/29/2020 9:49 AM CDT 2.5 mg metoprolol tartrate (LOPRESSOR) tablet 25 mg 25 mg, Oral, 2 times daily, First dose on Fri01/26/20 at 2100, Until Discontinued Given 01/31/2020 8:50 AM CDT 25 mg Given 01/30/2020 8:47 PM CDT 25 mg Given 01/30/2020 9:17 AM CDT 25 mg potassium chloride CR (KLOR-CON M) tablet 40 mEq 40 mEq, Oral, Once, 1 dose, On Fri01/27/20 at 1000, Do not chew, crush, or suck on tablet. May break in half. May dissolve whole tablet in 120 mL of water and drink immediately. Given 01/27/2020 9:55 AM CDT 40 mEq potassium chloride CR (KLOR-CON M) tablet 40 mEq 40 mEq, Oral, Once, 1 dose, On 01/31/20 at 1130, Do not chew, crush, or suck on tablet. May break in half. May dissolve whole tablet in 120 mL of water and drink immediately. Given 01/31/2020 12:24 PM CDT 40 mEq documented in this encounter Active and Recently Administered Medications Times are shown in CDT. Scheduled Medication Order 01/29/2020 01/30/2020 01/31/2020 amoxicillin (AMOXIL) capsule 500 mg 500 mg, Oral, Every 12 hours scheduled (2 times per day), First dose on Fri01/30/20 at 2100, Until Discontinued 2045 (Given - Provider: Teressa Connors RN) 0850 (Given - Provider: Riya Wild RN) aspirin chewable tablet 81 mg 81 mg, Oral, Daily, First dose on Fri01/27/20 at 1430, Until Discontinued 49 (Given - Provider: Riya Wild RN) 0918 (Given - Provider: Selene Grissom RN) 0850 (Given - Provider: Riya Wild RN) atorvastatin (LIPITOR) tablet 40 mg 40 mg, Oral, Nightly at bedtime, First dose on Fri01/26/20 at 2100, Until Discontinued 2036 (Given - Provider: Teressa Connors RN) 2046 (Given - Provider: Teressa Connors RN) cefTRIAXone (ROCEPHIN) 1 g in sodium chloride 0.9 % 50 mL IVPB (CANCELED) 1 g, Intravenous, at 100 mL/hr, Every 24 hours, First dose on Fri01/28/20 at 1230, Until Discontinued 1249 (New Bag - Provider: Riya Wild RN)1319 (Infusion Stop Time - Provider: Teressa Connors RN) 1137 (New Bag - Provider: Selene Grissom RN)1207 (Infusion Stop Time - Provider: Selene Grissom RN) heparin (porcine) injection 5,000 Units 5,000 Units, Subcutaneous, Every 12 hours scheduled (2 times per day), First dose on Fri01/27/20 at 2100, Until Discontinued 49 (Given - Provider: Riya Wild RN)2036 (Given - Provider: Teressa Connors RN) 0918 (Given - Provider: Selene Grissom RN)2046 (Given - Provider: Teressa Connors RN) 0849 (Given - Provider: Riya Wild RN) lisinopril (PRINIVIL) tablet 2.5 mg 2.5 mg, Oral, Daily, First dose on Fri01/28/20 at 1530, Until Discontinued 0949 (Given - Provider: Riya Wild RN) 0917 (Given - Provider: Selene Grissom RN) 0850 (Given - Provider: Riya Wild RN) metoprolol tartrate (LOPRESSOR) tablet 25 mg 25 mg, Oral, 2 times daily, First dose on Fri01/26/20 at 2100, Until Discontinued 0949 (Given - Provider: Riya Wild RN)2036 (Given - Provider: Teressa Connors RN) 0917 (Given - Provider: Selene Grissom RN)2046 (Given - Provider: Teressa Connors RN) 0850 (Given - Provider: Riya Wild RN) potassium chloride CR (KLOR-CON M) tablet 40 mEq (COMPLETED) 40 mEq, Oral, Once, 1 dose, On 01/31/20 at 1130, Do not chew, crush, or suck on tablet. May break in half. May dissolve whole tablet in 120 mL of water and drink immediately. 1224 (Given - Provider: Riya Wlid, RN) PRN Medication Order 01/29/2020 01/30/2020 01/31/2020 acetaminophen (TYLENOL) tablet 650 mg 650 mg, Oral, Every 6 hours PRN, Mild pain (Scale 1 - 3), Headaches, Starting on Chayo 01/27/20 at 1118, Until 01/31/20 at 1753, Maximum dose of acetaminophen is 4000 mg from all sources in 24 hours. 0723 (Given - Provider: Nikky Almaraz RN)2257 (Given - Provider: Teressa Connors RN) 0917 (Given - Provider: Selene Grissom, KATLYN)1747 (Given - Provider: Selene Grissom, KATLYN) 0008 (Given - Provider: Teressa Connors RN)0642 (Given - Provider: Teressa Connors RN)1304 (Given - Provider: Riya Wild, KATLYN) documented in this encounter Care Teams Home Appliance Tech Relationship Specialty Start Date End Date Kiel Hadley MD [address] [place] [address] PCP - General INTERNAL MEDICINE 03/16/19 documented as of this encounter
--- OUTSIDE RECORDS SUMMARY | 2024-09-08 20:42 | XMS_ITS | Encounter Summary ---
Author Organization [facility] Address [address] [place] [address]. [place] [address] [place] [address] Care Team Providers Care Desk Clerk Name Role Phone Unavailable Primary Care Provider Unavailabl e Encounter Details Date Type Department Care Team (Late st Contact Info) Description 12/28/1996 Abstract [facility]FL CONVERSION [address] [place] [address] , Generic Conversion, Social History [...]
--- OUTSIDE RECORDS SUMMARY | 2024-09-08 20:42 | XMS_ITS | Encounter Summary ---
Author Organization [facility] Address [facility]. [place], [place] [address] [place] [address] Care Team Providers Care Hat Cutter Name Role Phone Casa Encarnacion MD Primary Care Provider [phone] Reason for Visit * Reason Comments Hospital F/U stroke Encounter Details Date Type Department Care Team (Latest Contact Info) Description 03/08/2020 2:00 PM CDT Office Visit [facility] [address] [place] [address] Javi Yoo MD [address] [place] [address] Hospital F/U (stroke) Social History Tobacco Use Types Packs/Day Years [...] have Coronavirus / COVID-19? No / Unsure 03/08/2020 2:03 PM CDT documented as of this encounter Last Filed Vital Signs Vital Sign Reading Time Taken Comments Blood Pressure 132/78 03/08/2020 2:18 PM CDT Pulse 56 03/08/2020 2:18 PM CDT Temperature 36.8 ??C (98.2 ??F) 03/08/2020 2:18 PM CD T Respiratory Rate - - Oxygen Saturation 97% 03/08/2020 2:18 PM CDT Inhaled Oxygen Concentration - - Weight 64.8 kg (142 lb 12.8 oz) 03/08/2020 2:18 PM CDT Height 167.6 cm (5' 6 ) 03/08/2020 2:18 PM CDT Body Mass Index 23.05 03/08/2020 2:18 PM CDT documented in this encounter Functional [...] Author Status No 01/26/2020 5:15 PM CDT Foulk, Unique H, RN Active documented in this encounter Patient Instructions * Patient Instructions* Javi Yoo MD - 03/08/2020 2:00 PM CDT You had a Very small stroke on the left side of the brain, and because your transient confusion, but I think you recovered very well from it and I am glad that you were discharged from physical therapy. The one pending issue is your cholesterol at this time. I had like you to take atorvastatin 40 mg daily and I will check today your LDL level if it still above 100 I will call you to double your atorvastatin. Your blood pressure today is excellent, your blood glucose level was very good when we tested it in the hospital. I do not think there is anything else to be done except taking your dailyaspirin and atorvastatin for lifetime and I hope this will protect you from future strokes. You will return to see me as needed and I will copy today your primary care physician Dr. Encarnacion with everything. You may drive. documented in this encounter Progress Notes * Javi Yoo MD - 03/08/2020 2:00 PM CDT Images from the original note were not included. Vascular and Interventional Neurology Office Outpatient Follow-up Visit Brenda Wilson 1935 [id number] Patient: Brenda Wilson is being seen in follow-up for ischemic stroke. Since Her hospital discharge,she received physical therapy and she was discharged, she is doing fine and she does not think the stroke left her with any disability. We recall she has a very small left temporal subcortical ischemic infarction and she recovered verywell from it. She also had a concomitant urinary tract infection at that time. We checked her hemoglobin A1c was 5.1%, her LDL was 147. ROS Review of Systems Constitutional: Negative for fever. HENT: Negative for sore throat. Eyes: Negative for double vision. Respiratory: Negative for cough and hemoptysis. Cardiovascular: Negative for chest pain and palpitations. Gastrointestinal: Negative for blood in stool and vomiting. Genitourinary: Negative for hematuria. Musculoskeletal: Negative for myalgias. Skin: Negative for rash. Endo/Heme/Allergies: Does not bruise/bleed easily. Allergies: Allergies Allergen Reactions ??? Seasonal Unknown Sneezing PMH: Past Medical History: Diagnosis Date ??? Arthritis ??? Cancer (CMS/HCC) appendix ??? History of blood transfusion ??? Hypertension PSH: Past Surgical History: Procedure Laterality Date ??? APPENDECTOMY ??? COLONOSCOPY ??? HC EP STUDY PLUS SVT ABLATION [id number] ??? HYSTERECTOMY Social Hx: Social History Socioeconomic History ??? [...] file Gets together: Not on file Attends worship service: Not on file Active member of [...] Narrative ??? Not on file Family Hx: Family History Problem Relation Name Age of Onset ??? No Known Problems Mother ??? No Known Problems Father ??? No Known Problems Sister ??? No Known Problems Brother ??? No Known Problems Maternal Aunt ??? No Known Problems Maternal Uncle ??? No Known Problems Paternal Aunt ??? No Known Problems Paternal Uncle ??? No Known Problems Maternal Grandmother ??? No Known Problems Maternal Grandfather ??? No Known Problems Paternal Grandmother ??? No Known Problems Paternal Grandfather Vital Signs: Filed Vitals: 03/08/20 1418 BP: 132/78 Pulse: 56 Temp: 98.2 ??F (36.8 ??C) TempSrc: Temporal SpO2: 97% Weight: 64.8 kg (142 lb 12.8 oz) Height: 5' 6 (1.676 m) Physical Exam: General appearance alert, no distress, the patient is not in acute distress. She has normal pulses in the bilateral radial arteries (2+) with regular rate and rhythm, there is no edema in the bilateral lower extremities to visual inspection. Physical Exam Constitutional: She is oriented to person, place, and time. Eyes: Pupils are equal, round, and reactive to light. EOM are normal. Neurological: She is oriented to person, place, and time. She has normal strength. She has a oxliboLdnuto-Ttmf-Ucuyny Test. Psychiatric: Her speech is normal. Neurologic Exam Mental Status Oriented to person, place, and time. Attention: normal. Speech: speech is normal Level of consciousness: alert Able to name object. Able to repeat. Normal comprehension. Cranial Nerves CN II Visual champion full to confrontation. CN III, IV, Pupils are equal, round, and reactive to light. Extraocular motions are normal. CN V Facial sensation intact. CN VII Facial expression full, symmetric. CN VIII CN VIII normal. CN XI CN XI normal. CN XII CN XII normal. Motor Exam Strength Strength 5/5 throughout. Gait, Coordination, and Reflexes Gait Gait: shuffling Coordination Finger to nose coordination: normalLimps from scoliosis. Most recent labs: Blood Count: Lab Results Component Value Date WBC 9.6 01/31/2020 HGB 12.0 01/31/2020 HCT 36.9 01/31/2020 PLT 296 01/31/2020 Metabolic Panel: Lab Results Component Value Date NA 141 01/31/2020 K 3.1 (L) 01/31/2020 CL 110 (H) 01/31/2020 CO2 25.3 01/31/2020 AGAP 5.7 01/31/2020 BUN 23 (H) 01/31/2020 CR 0.81 01/31/2020 GFRNON 68 (L) 01/31/2020 GFR 78 (L) 01/31/2020 GLU 94 01/31/2020 CA 9.1 01/31/2020 Coags: No results found for: PTT, INR Cardiac Markers: No results found for: TROP, CPK, MB Lipids/A1C/TSH: Lab Results Component Value Date CHOL 236 01/27/2020 TRI 101 01/27/2020 HDL 69 01/27/2020 LDL 147 01/27/2020 HGBA1C 5.1 01/27/2020 Hospital EKG EKG: not completed. Outpatient Manager Of Sales post-discharge Home Meds: No outpatient medications have been marked as taking for the 03/08/20 encounter (Office Visit) with Javi Yoo MD. Radiology: Mri Brain Wwo Con Result Date: 01/26/2020 Exam: MRI brain No comparison INDICATION: Recent confusion and altered level of consciousness. TECHNIQUE: Precontrast and postcontrast imaging with 10 cc intravenous Dotarem. FINDINGS: Moderate diffuse volume loss. No mass effect, extra-axial fluid collection, or ventricular dilation. No findings for hemorrhage on the gradient images. Moderate focal and confluent deep white matter hyperintensityon FLAIR is probably small vessel disease. Some [...] Result Date: 01/27/2020 Echocardiography Report Pat.Name: BRENDA WILSON Pat.ID: [id number] St.Date: 01/27/2020 Refer.MD: JOELLE SON Exam Time: 2:38:00 PM Study Type:ECHO WITH CARDIAC DOPPLER COMP Height: 165cm Weight: 58.1kg BSA: 1.64 m2 Age: 8 1935,84Y Sex: FEMALE HR: 75 bpm Sonogrphr: Bolivar Iqbal RDCS Pat. Stat. :Inpatient Room: 830 CPT - 4: 04657 Reason for Study: TIA Procedures: 2D, M- mode, Doppler, Color Flow, Portable, The study quality is technically adequate. Race: ++++++++++++++++++++++++++++++++++++ SUMMARY: ++++++++++++++++++++++++++++++++++++ The left ventricular size is normal. The left ventricular systolic function is hyperdynamic. Estimated left ventricular ejection fraction is greater than 70%. Moderate concentric left ventricular hypertrophy. Left ventricular relaxation is impaired. The right ventricle is normal. The left atrial size is moderately enlarged. Ascending aorta ismildly dilated--4cm. Probable mild to moderate aortic regurgitation. Trace tricuspid regurgitation.++++++++++++++++++++++++++++++++++++ FINDINGS: ++++++++++++++++++++++++++++++++++++ LV: The left ventricular size is normal. The left ventricular systolic function is hyperdynamic. The calculated ejection fraction is 67%. Estimated left ventricular ejection fraction is greater than 70%. Moderate concentric left ventricular hypertrophy. The septal E/e' is indeterminate at 8-15. The lateral E/e' isnormal at <8. The average E/e' is indeterminate at 9-12 and EF is > or equal to 50. Left ventricular relaxation is impaired. WM: Wall motion appears normal in all segments. LVOT: The left ventr icular outflow tract size is normal. RV: The [...] valve is trileaflet. Mild to moderate aortic re gurgitation. Mild calcification of aortic valve leaflets. MV: [...] P1/2t 3.33 cm2 (4-6) MV pkE 68.9 cm/s(60-130) MV P1/2t 66 ms (30-60) MV pkA 69.4 cm/s Lat E' Lat e 10.2 cm/s Lat E/E' Lat E/e 6.8 Med E'Med e 6.31 cm/s Med E/E' Med E/e 10.9 Aortic Valve Aortic Valve Ar 1.27 Aortic Valve Ve 0.85 AV DI Value 1 YESSENIA (VTI) Index Value 1.27 LV Mass 2D Value 126 g LV Mass Mflwx0C Value 76.8 g/m2 Right Ventricle Right Ventricle 17.7 cm/s 2D Left Ventricle LVIDd 3.63 cm (3.6-5.2) LV EF(Bi-Plane) 67.6 % (55-75) LVIDs 2.29 cm (2.3-3.9) LVPW LVPWd 1.17 cm LVPWth 74.4 % LVPWs 2.04 cm Ventricular Septum IVSd1.03 cm IVSs 1.52 cm Left Atrium LA [...] By: Garth Mujica MD, 01/27/2020 9:23 PM Patient's Active Problems: Patient Active Problem List Diagnosis ??? Acute ischemic stroke (CMS/HCC) ??? Confusion Problems addressed during this visit: Encounter Diagnose(s) ICD-10-CM ICD-9-CM SNOMED CT(R) 1. Hyperlipidemia LDL goal <70 E78.5 272.4 HYPERLIPIDEMIA LIPOPROTEIN, LDL CHOL, DIRECT 2. History of ischemic stroke in prior three months Z86.73 V12.54 HISTORY OF CEREBROVASCULAR ACCIDENT No problem-specific Assessment & Plan notes found for this encounter. There are no discontinued medications. L temp subcortical ischemic stroke. Likely small v. Etiology. Plan: Aspirin and atorvastatin for lifetime. BP gaol <130/70 LDL goal <70. Return PRN. >>>>>>>>>>>>>>>>>>>>>>>>>>>>>>>>>>>>>>>>>>>>>>>>>>> Those were her discharge instructions: You had a Very small stroke on the left side of the brain, and because your transient confusion, but I think you recovered very well from it and I am glad that you were discharged from physical therapy. The one pending issue is your cholesterol at this time. I had like you to take atorvastatin 40 mg daily and I will check today your LDL level if it still above 100 I will call you to double your atorvastatin. Your blood pressure today is excellent, your blood glucose level was very good when we tested it in the hospital. I do not think there is anything else to be done except taking your dailyaspirin and atorvastatin for lifetime and I hope this will protect you from future strokes. You will return to see me as needed and I will copy today your primary care physician Dr. Encarnacion with everything. You may drive. JAVI YOO MD 03/08/2020 2:28 PM documented in this encounter Plan of Treatment Not on file documented as of this encounter Results * LIPOPROTEIN, LDL CHOL, DIRECT (03/08/2020 3:01 PM CDT) DIRECT LDL 51 MG/DL 03/08/2020 3:[address] [facility] Comment:<100 OPTIMAL 03/08/2020 3:01 PM CDT Javi Yoo MD LABORATORY Final Result [facility] [address] [place] [address], [id number] documented in this encounter Visit Diagnoses Diagnosis Hyperlipidemia LDL goal <70- Primary Other and unspecified hyperlipidemia History of ischemic stroke in prior three months documented in this encounter Care Teams Hat Cutter Relationship Specialty Start Date End Date Casa Encarnacion MD [address] [place] [address] PCP - General INTERNAL MEDICINE 03/16/19 documented as of this encounter
--- OUTSIDE RECORDS SUMMARY | 2024-09-08 20:42 | XMS_ITS | Encounter Summary ---
Author Organization [facility] Address [address] [place] [address]. [place], [place] [address] [place] [address] Care Team Providers Care Label Designer Name Role Phone Unavailable Primary Care Provider Unavailabl e Encounter Details Date Type Department Care Team (Late st Contact Info) Description 09/29/2009 [facility] [address] [place] [address] , Ayleen Evangelista MD Social History Tobacco [...] Sign Reading Time Taken Comments Blood Pressure 110/70 09/29/2009 1:20 PM ROOM SERVER Pulse 60 09/29/2009 1:20 PM ROOM SERVER Regul ar Temperature - - Respiratory Rate 16 09/29/2009 1:20 PM ROOM SERVER Oxygen Saturation - - Inhaled Oxygen Concentration - - Weight 65.8 kg (145 lb) 09/29/2009 1:20 PM ROOM SERVER Height 170.2 cm (5' 7 ) 09/29/2009 1:20 PM ROOM SERVER Body Mass Index 22.71 09/29/2009 1:20 PM ROOM SERVER documented in this encounter Plan of Treatment Not on file documented as of this encounter Visit Diagnoses Not on filedocumented in this encounter
--- OUTSIDE RECORDS SUMMARY | 2024-09-08 20:42 | XMS_ITS | Encounter Summary ---
Author Organization [facility] Address [address] [place] [address]. [place] [address] [place] [address] Care Team Providers Care Delivery Agent Name Role Phone Casa Encarnacion MD Primary Care Provider Reason for Visit * Auth/Cert Specialty Diagnoses / Procedures Referred By Contac t Referred To Contact Diagnoses RECURRENT UTI'S Procedures CYSTOSCOPY Referral ID Status Reason Start Date Expiration Date Visits Re quested Visits Authorized [id number] 1 1 Encounter Details Date Type Department Care Team (Latest Contact Info) Description 07/06/2019 9:16 AM CDT - 07/06/2019 10:39 AM CDT Hospital [facility] [place] [address] [place] [address] [place] [address] [place] [phone] Discharge Disposition: Home or Self Care (Routine [...] of Binge Drinking Not on file 06/09 Comments Unknown Sex and Gender Information Value Date Recorded Sex Assigned at Not on file Legal Sex Female 11:02 PM CDT Gender Identity Not on file Sexual Orientation Not on file documented as of this encounter Last Filed Vital Signs Vital Sign Reading Time Taken Comments Blood Pressure 138/77 07/06/2019 10:17 AM CDT Pulse 57 07/06/2019 10:17 AM CDT Temperature 36.4 ??C (97.6 ??F) 07/06/2019 10:17 AM C DT Respiratory Rate 20 07/06/2019 10:17 AM CDT Oxygen Saturation 100% 07/06/2019 10:17 AM CDT Inhaled Oxygen Concentration - - Weight 62.6 kg (138 lb) 06/30/2019 9:46 AM CDT Height 165.1 cm (5' 5 ) 06/30/2019 9:46 AM CDT Body Mass Index 22.96 06/30/2019 9:46 AM CDT documented in this encounter Discharge Instructions * Attachments The following attachments cannot be sent through Care Everywhere. * Cystoscopy Discharge Instructions (Ghanaian) documented in this encounter Medications at Time of Discharge cetirizine 10 MG tablet Take 1 tablet (10 mg total) by mouth as needed for Allergies. chlordiazepoxide 5 MG capsule Take 1 capsule (5 mg total) by mouth 3 (three) times daily as needed for Anxiety. 06/16/2009 gabapentin 300 MG capsule One capsule by mouth at breakfast and lunch, two capsules at bedtime 10/13/2018 metoprolol tartrate 25 MG tablet Take 1 tablet (25 mg total) by mouth 2 (two) times a day. 08/20/2017 mirtazapine 30 MG tablet Take 0.5 tablets (15 mg total) by mouth nightly at bedtime. 09/30/2014 Multiple Vitamins-Mineral s (ICAPS AREDS 2) Cap Take 2 tablets by mouth daily. 4 Psyllium (METAMUCIL FIBER OR)Indications:C ONSTIPATION Take 1 tablet by mouth daily. Indications: CONSTIPATION 0 documented as of this encounter OR Notes * Brief Op Note - Marimar Alba III, MD - 07/06/2019 10:23 AM CDT [facility] Brief Op HSHSCYSTOSCOPY Procedure Note Luanne Quesadasera 07/06/2019 1008 Procedure(s) (LRB): CYSTOSCOPY (N/A) Surgeon(s): Marimar Alba III, MD [place]: None Anesthesia: Local Pre-Op Diagnosis: RECURRENT UTI'S Post-Op Diagnosis: Same Findings: Flocculent debris in bladder Estimated Blood Loss: Minimal Specimens: ID Type Source Tests Collected by Time 1 : Urine from cystoscopy URINE URINE, CYSTOSCOPIC CULTURE URINE Marimar Alba III, MD 07/06/20191003 MARIMAR ALBA III, MD Date: 07/06/2019 Time: 10:24 AM * Op Note - Marimar Alba III, MD - 07/06/2019 12:00 AM CDT BRIEF HISTORY: Ms. Gotti is having recurrent urinary tract infections. We found no correctable abnormalities on her to date. Her CT scan done this summer showed tiny renal stones, which are essentially punctate. They are too small to treat and none of them are obstructing. She has good bladder emptying down to 15 mL. She has no evidence of renal scarring, damage or hydronephrosis. She does not wear pads. She does not have stress incontinence; however, she is a postmenopausal female and is likely to continue having infections from those risk factors. She is here for cystoscopy. DESCRIPTION OF OPERATION: After obtaining informed consent, the patient was taken to the cystoscopysuite where a timeout was taken. She was correctly identified. Cystoscopy showed a normal urethra. The bladder interior was free of tumors, diverticula, or foreign bodies. Orifices were normally effluxing clear urine. The dome was inspected and was also normal. There was no evidence of any mucosal abnormalities; however, 2 things first near the dome, there was a small outpouching on the back wallconsistent with trabeculation and second there was flocculent debris within the bladder, indicatingto me that she has an active urinary tract infection despite antibiotics. I have offered to give her some more antibiotics, but we do not have the culture and the delay here will be about a week before. I will get the culture back from [place]. 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 So, I sent out some Diflucan 200 mg to take every other day for 6 days, which she reports her normal routine. We will get the appropriate antibiotic sensitivities soon and get her a new prescription. In the future, each urinary tract infection that she gets will have to be cultured and treated individually. This will probably be easier for somebody that sees her on a regular basis, her primary care physician, for instance. It is also possible that there are other solutions and I would ask her to see an infectious diseasespecialist. The current arrangement is inadequate. Some people believe that supplemental Estrogen cream can help the urethra fight off infection more; however, there is controversy as to whether thisgenerates internal female malignancies. A copy of this report has been sent to: KELLY CHAU MD documented in this encounter Plan of Treatment Not on file documented as of this encounter Procedures Procedure Name Priority Date/Time Associated Diagnosis Comments URINE BACTERIA CULTURE Routine 07/06/2019 10:03 AM CDT CYSTOSCOPY 07/06/2019 9:37 AM CDT RECURRENT UTI'S documented in this encounter Results * CULTURE URINE (07/06/2019 10:03 AM CDT) SPEC DESCRIPTION URINE, CYSTOSCOPIC 07/06/2019 10:05 AM CDT [facility] SPECIAL REQUESTS NO SPECIAL REQUEST 07/06/2019 10:05 AM CDT [facility] CULTURE RESULT >100,000 CFU/mL KLEBSIELLA PNEUMONIAE PNEUMONIAE 07/07/2019 8:53 PM CDT [facility] Urine specimen (specimen) URINE CYTOLOGIC MATERIAL / Unknown 07/06/2019 10:03 AM CDT Narrative Organism Antibiotic Method Susceptibility Klebsiella pneumoniae pneumoniae AMPICILLIN LEO (VITEK) Resistant Klebsiella pneumoniae pneumoniae AMOXICILLIN/CLAVULANIC A LEO (VITEK) Sensitive Klebsiella pneumoniae pneumoniae AZTREONAM LEO (VITEK) Sensitive Klebsiella pneumoniae pneumoniae CEFEPIME LEO (VITEK) Sensitive Klebsiella pneumoniae pneumoniae CEFTRIAXONE LEO (VITEK) Sensitive Klebsiella pneumoniae pneumoniae CEFAZOLIN LEO (VITEK) Sensitive Klebsiella pneumoniae pneumoniae CIPROFLOXACIN LEO (VITEK) Sensitive Klebsiella pneumoniae pneumoniae ESBL LEO (VITEK) NEG: Sensitive Klebsiella pneumoniae pneumoniae ERTAPENEM LEO (VITEK) Sensitive Klebsiella pneumoniae pneumoniae NITROFURANTOIN LEO (VITEK) Resistant Klebsiella pneumoniae pneumoniae GENTAMICIN LEO (VITEK) Sensitive Klebsiella pneumoniae pneumoniae IMIPENEM LEO (VITEK) Sensitive Klebsiella pneumoniae pneumoniae LEVOFLOXACIN LEO (VITEK) Sensitive Klebsiella pneumoniae pneumoniae MEROPENEM LEO (VITEK) Sensitive Klebsiella pneumoniae pneumoniae PIPRACIL/TAZO LEO (VITEK) Sensitive Klebsiella pneumoniae pneumoniae TRIMETH-SULFAMETH. LEO (VITEK) Sensitive Klebsiella pneumoniae pneumoniae TETRACYCLINE LEO (VITEK) Sensitive Marimar Alba III, MD MICROBIOLOGY - GENERAL O RDERABLES Final Result [facility] [address] [place] [address], [place] [phone] [id number] [facility] [address] [place] [address], documented in this encounter Visit Diagnoses Not on filedocumented in this encounter Active and Recently Administered Medications Times are shown in CDT. PRN Medication Order 07/04/2019 07/05/2019 07/06/2019 lidocaine 2 % URO-JET jelly (CANCELED) As needed, Starting on Fri07/06/19 at 1002, Until Fri07/06/19 at 1011, Intra-Op 1002 (Given - Provid er: Marimar Alba III, MD) documented in this encounter Care Teams Delivery Agent Relationship Specialty Start Date End Date Casa Encarnacion MD [address] [place] [address] PCP - General INTERNAL MEDICINE 03/16/19 documented as of this encounter
--- OUTSIDE RECORDS SUMMARY | 2024-09-08 20:42 | XMS_ITS | Encounter Summary ---
Author Organization [facility] Address [address] [place] [address]. [place] [address] [place] [address] Care Team Providers Care Construction Flagger Name Role Phone Unavailable Primary Care Provider Unavailabl e Encounter Details Date Type Department Care Team (Late st Contact Info) Description 12/21/2003 Abstract [facility] CONVERSION [address] [place] [address] , Generic Conversion, Social History [...]
--- OUTSIDE RECORDS SUMMARY | 2024-09-08 20:42 | XMS_ITS | Encounter Summary ---
Author Organization [facility] Address [address] [place] [address]. [place] [address] [place] [address] Care Team Providers Care Dental Professional Name Role Phone Unavailable Primary Care Provider Unavailabl e Encounter Details Date Type Department Care Team (Late st Contact Info) Description 06/13/2004 Abstract [facility] CON[facility] [address] [place] [address] [place] [address] [place] [phone] Social History Tobacco Use Types Packs/Day [...]
--- OUTSIDE RECORDS SUMMARY | 2024-09-08 20:42 | XMS_ITS | Encounter Summary ---
Author Organization [facility] Address [address] [place] [address]. [place], [place] [id number] [place] [address] Care Team Providers Care Business Development Coordinator Name Role Phone Unavailable Primary Care Provider Unavailabl e Reason for Visit * Reason Comments Echo (SCAN) Encounter Details Date Type Department Care Team (Late st Contact Info) Description 04/23/2018 Scan [facility] [address] [place] [address] Scanned, Documents Echo (SCAN) Social History Tobacco Use Types Packs/Day Years [...] Procedure Name Priority Date/Time Associated Diagnosis Comments ECHO GENERIC (SCAN ORDER) Routine 04/23/2018 documented in this encounter Results * ECHO (04/23/2018) Anatomical Region Laterality Modality Other us Documents Scanned SCANNING Final Result documented in this encounter Visit Diagnoses Not on filedocumented in this encounter
--- OUTSIDE RECORDS SUMMARY | 2024-09-08 20:42 | XMS_ITS | Encounter Summary ---
Author Organization [facility] Address [address] [place] [address]. [place], [place] [address] [place] [address] Care Team Providers Care News Director Name Role Phone Casa Encarnacion MD Primary Care Provider [phone] Reason for Referral * Imaging (Routine) - Closed Specialty Diagnoses / Procedures Referred By Contac t Referred To Contact RADIOLOGY Diagnoses Recurrent cystitis Procedures CT ABD+PEL WO CON Marimar Alba III, MD Phone: tel: fax: Referral ID Status Reason Start Date Expiration Date Visits Re quested Visits Authorized [id number] Closed 03/16/2019 04/16/2020 1 1 * Imaging (Routine) - Closed Specialty Diagnoses / Procedures Referred By Contac t Referred To Contact RADIOLOGY Diagnoses Recurrent cystitis Procedures US BLADDER Marimar Alba III, MD Phone: tel: fax: Referral ID Status Reason Start Date Expiration Date Visits Re quested Visits Authorized [id number] Closed 03/16/2019 04/16/2020 1 1 Reason for Visit * Imaging (Routine) - Closed Specialty Diagnoses / Procedures Referred By Contac t Referred To Contact RADIOLOGY Diagnoses Recurrent cystitis Procedures US BLADDER Marimar Alba III, MD Phone: tel: fax: Referral ID Status Reason Start Date Expiration Date Visits Re quested Visits Authorized [id number] Closed 03/16/2019 04/16/2020 1 1 Encounter Details Date Type Department Care Team (Latest Contact Info) Description 04/08/2019 9:11 AM CDT - 04/08/2019 11:59 PM CDT Hospital Encounter [facility] [address] [place] [address] [place] [address] [place] [phone] Discharge Disposition: Home or Self Care (Routine Discharge) Social History Tobacco Use Types Packs/Day Years Used Date Smoking Tobacco: Never Comments Unknown Sex and Gender Information Value Date Recorded Sex Assigned at Not on file Legal Sex Female 11:02 PM CDT Gender Identity Not on file Sexual Orientation Not on file documented as of this encounter Medications at Time of Discharge chlordiazepoxide 5 MG capsule Take 1 capsule [...] total) by mouth nightly at bedtime. 09/30/2014 documented as of this encounter Plan of Treatment Not on file documented as of this encounter Procedures Procedure Name Priority Date/Time Associated Diagnosis Comments CT ABD+PEL WO CON Routine 04/08/2019 9:4 3 AM CDT Recurrent cystitis US BLADDER Routine 04/08/2019 9:39 AM CDT Recurrent cystitis documented in this encounter Results * CT ABD+PEL WO CON (04/08/2019 9:43 AM CDT) Anatomical Region Laterality Modality Abdomen Computed Tomogra phy 04/08/2019 10:5 3 AM CDT Impressions 04/08/2019 11:04 AM CDT IMPRESSION: 1. Bilateral nephrolithiasis. 2. Colonic diverticulosis. 3. Duodenal diverticulum. 4. Scoliosis. Interpreted By: Leoncio Musa, 04/08/2019 10:53 AM Narrative 04/08/2019 11:04 AM CDT Examination: CT of the abdomen and pelvis without contrast. Exam time: 0945 hours. Clinical history: Recurrent urinary tract infection. Microscopic hematuria. Comparison: None. Technique: Spiral scanning was performed through the abdomen and pelvis without contrast. Sagittal and coronal reconstructions were performed from the data set. ??A dose lowering technique was used for this procedure, which may include, but is not limited to, dose reduction techniques, automated exposure control, the use of iterative reconstruction and ALARA/Image Gently techniques. Findings: There is minor scarring at the lung bases. The lung bases are otherwise clear. No pleural effusions are seen. The liver, spleen, gallbladder, pancreas and adrenal glands appear unremarkable for the noncontrast technique. There is a 2 mm calculus in the upper pole of the right kidney. There is a 2 mm calculus in the mid to upper pole of the left kidney. The kidneys are otherwise unremarkable for the noncontrast technique. No other urinary tract calculi are identified. Pelvic phleboliths are noted. The urinary bladder is nondistended. The uterus is atrophic, compatible with age. There is right hemicolectomy with ileocolic anastomosis. There is colonic diverticulosis without signs of diverticulitis. There is a prominent diverticulum of the second portion of the duodenum. There is no ascites, lymphadenopathy or bowel distention. The caliber of the abdominal aorta is normal. There is diffuse spondylosis with marked leftward convex lumbar scoliosis. Procedure Note Leoncio Musa MD - 04/08/2019 Examination: CT of the abdomen and pelvis without contrast. Exam time: 0945 hours. Clinical history: Recurrent urinary tract infection. Microscopichematuria. Comparison: None. Technique: Spiral scanning was performed through the abdomen and pelvis without contrast. Sagittal and coronal reconstructions were performedfrom the data set. A dose lowering technique was used for this procedure,which may include, but is not limited to, dose reduction techniques, automated exposure control, the use of iterative reconstruction and ALARA/Image Gently techniques. Findings: There is minor scarring at the lung bases. The lung bases are otherwise clear. No pleural effusions are seen. The liver, spleen, gallbladder, pancreas and adrenal glands appear unremarkable for the noncontrast technique. There is a 2 mm calculus in the upper pole of the right kidney. There is a 2 mm calculus in the mid to upper pole of theleft kidney. The kidneys are otherwise unremarkable for the noncontrast technique. No other urinary tract calculi are identified. Pelvic phleboliths are noted. The urinary bladder is nondistended. The uterusis atrophic, compatible with age. There is right hemicolectomy withileocolic anastomosis. There is colonic diverticulosis without signs of diverticulitis. There is a prominent diverticulum of the second portionof the duodenum. There is no ascites, lymphadenopathy or bowel distention.The caliber of the abdominal aorta is normal. There is diffuse spondylosiswith marked leftward convex lumbar scoliosis. IMPRESSION: 1. Bilateral nephrolithiasis. 2. Colonic diverticulosis. 3. Duodenal diverticulum. 4. Scoliosis. Interpreted By: Leoncio Musa, 04/08/2019 10:53 AM us Marimar Alba III, MD CT Final Re sult * US BLADDER (04/08/2019 9:39 AM CDT) Anatomical Region Laterality Modality Renal Ultrasound 04/08/2019 10:4 6 AM CDT Impressions 04/08/2019 10:51 AM CDT IMPRESSION: 1. No urinary bladder mass or calculus identified. 2. Bladder volumes as described. Interpreted By: Leoncio Musa, 04/08/2019 10:46 AM Narrative 04/08/2019 10:51 AM CDT Examination: Ultrasound of the urinary bladder. Exam time: 0923 hours. Clinical history: Microscopic hematuria. Recurrent UTI. Comparison: None. Technique: Grayscale and color Doppler images. Findings: Bilateral ureteral jets are demonstrated. No urinary bladder mass or calculus is identified. The calculated prevoid bladder volume is approximately 60 mL. The calculated post void bladder volume is approximately 15 mL. Procedure Note Leoncio Musa MD - 04/08/2019 Examination: Ultrasound of the urinary bladder. Exam time: 0923 hours. Clinical history: Microscopic hematuria. Recurrent UTI. Comparison: None. Technique: Grayscale and color Doppler images. Findings: Bilateral ureteral jets are demonstrated. No urinary bladdermass or calculus is identified. The calculated prevoid bladder volume is approximately 60 mL. The calculated post void bladder volume is approximately 15 mL. IMPRESSION: 1. No urinary bladder mass or calculus identified. 2. Bladder volumes as described. Interpreted By: Leoncio Musa, 04/08/2019 10:46 AM us Marimar Alba III, MD ULTRASOUND Final Re sult documented in this encounter Visit Diagnoses Diagnosis Recurrent cystitis Cystitis, unspecified documented in this encounter Care Teams News Director Relationship Specialty Start Date End Date Casa Encarnacion MD [address] [place] [address] PCP - General INTERNAL MEDICINE 03/16/19 documented as of this encounter
--- OUTSIDE RECORDS SUMMARY | 2024-09-08 20:42 | XMS_ITS | Encounter Summary ---
Author Organization [facility] Address [facility] [place] [address] [place] [address] Care Team Providers Care Software Publisher Name Role Phone Casa Hadley MD Primary Care Provider [phone] Encounter Details Date Type Department Care Team (Latest Contact Info) Description 03/16/2019 11:35 AM CDT - 03/16/2019 11:59 PM [facility] Hospital Encounter [facility] [address] [place] [address] [place] [address] [address] Discharge Disposition: Home or Self Care [...] Procedure Name Priority Date/Time Associated Diagnosis Comments URINALYSIS Routine 03/16/2019 9:58 AM CDT Microscopic hematuria URINE BACTERIA CULTURE Routine 03/16/2019 9:58 AM CDT Microscopic hematuria CYTOLOGY GENERIC Routine 03/16/2019 12:0 0 AM CDT Microscopic hematuria documented in this encounter Results * CULTURE URINE (03/16/2019 9:58 AM CDT) SPEC DESCRIPTION URINE CLEAN CATCH 03/16/2019 12:23 PM CDT [facility] SPECIAL REQUESTS NO SPECIAL REQUEST 03/16/2019 12:23 PM CDT [facility] CULTURE RESULT >100,000 CFU/mL ENTEROCOCCUS FAECALIS 03/18/2019 8:36 PM CDT [facility] URINE SPECIMEN OBTAINED BY CLEAN CATCH PROCEDURE / Unknown 03/16/2019 9:58 AM CDT 03/16/2019 12:29 PM CDT Narrative Organism Antibiotic Method Susceptibility Enterococcus faecalis AMPICILLIN LEO (VITEK) Sensitive Enterococcus faecalis NITROFURANTOIN LEO (VITEK) Sensitive Enterococcus faecalis GENT. SYNERGY SCREEN LEO (VITEK) Sensitive Enterococcus faecalis LINEZOLID LEO (VITEK) Sensitive Enterococcus faecalis PENICILLIN G LEO (VITEK) Sensitive Enterococcus faecalis STR. SYNERGY SCR LEO (VITEK) Sensitive Enterococcus faecalis TETRACYCLINE LEO (VITEK) Resistant Enterococcus faecalis TIGECYCLINE LEO (VITEK) Sensitive Enterococcus faecalis VANCOMYCIN LEO (VITEK) Sensitive us Mu Alba III, MD MICROBIOLOGY - GENERAL O RDERABLES Final Result [facility] [address] [place] [address], [place] [phone] [facility] [address] [place] [address], * (ABNORMAL) URINALYSIS (03/16/2019 9:58 AM CDT) COLOR (U) YELLOW 03/16/2019 12:45 PM CDT [facility] TRANSPARENCY SLIGHTLY CLOUDY 03/16/2019 12:45 PM CDT [facility] SPECIFIC GRAVITY (U) 1.015 1.000 - 1.025 03/16/2019 12:45 PM CDT [facility] U PH 6.0 5.0 - 8.0 03/16/2019 12:45 PM CDT [facility] LEUKOCYTES (U) 2+(A) NEGATIVE 03/16/2019 12:45 PM CDT [facility] NITRITES NEGATIVE NEGATIVE 03/16/2019 12:45 PM CDT [facility] PROTEIN (U) TRACE(A) NEGATIVE 03/16/2019 12:45 PM CDT [facility] URINE GLUCOSE NEGATIVE NEGATIVE 03/16/2019 12:45 PM CDT [facility] KETONES MG/DL (U) NEGATIVE NEGATIVE 03/16/2019 12:45 PM CDT [facility] UROBILINOGEN 0.2 <1.0 EU/DL 03/16/2019 12:45 PM CDT [facility] BILIRUBIN (U) NEGATIVE NEGATIVE 03/16/2019 12:45 PM CDT [facility] BLOOD (U) NEGATIVE NEGATIVE 03/16/2019 12:45 PM CDT [facility] WBC/HPF 50-100(A) 0 - 5 /HPF 03/16/2019 12:45 PM CDT [facility] RBC/HPF 0-5 0 - 5 /HPF 03/16/2019 12:45 PM CDT [facility] EPI/HPF FEW /LPF 03/16/2019 12:45 PM CDT [facility] BACTERIA (U) 2+ /HPF 03/16/2019 12:45 PM CDT [facility] MUCUS PRESENT 03/16/2019 12:45 PM CDT [facility] OTHER CASTS (U) HYALINE /LPF 9 12:45 PM CDT [facility] Comment:5-10 URINE SPECIMEN OBTAINED BY CLEAN CATCH PROCEDURE / Unknown 03/16/2019 9:58 AM CDT us Mu Alba III, MD URINE ORDERABLES Final R esult Performing Organization Address [facility]/State/ZIP Co de Phone Number [facility] [address] [place] [address], * CYTOLOGY GENERIC (03/16/2019 12:00 AM CDT) CYTOLOGY OTHER [facility] ? Department of Laboratory Medicine ?[address] [facility] ?[place] [address] ? , extension [phone] ? Pathology Report ? Non-gynecologic Cytology Report Name: BRENDA WILSON ? Specimen #: [id number] Age: 6 1935 (Age: 84) ?Location: [facility] Sex: F ?Procedure Date: 03/16/2019 Hospital #: [id number] ?Date Received: 03/17/2019 Date Reported: 03/18/2019 Provider: MU ALBA III ?CASA HADLEY Source: URINE, VOIDED Clinical History: Microscopic hematuria Gross Description: SPECIMEN RECEIVED: ? 50 cc's of yellow fluid ? SLIDES PREPARED: ?1 ThinPrep ?STAINS: ? Papanicolaou FINAL DIAGNOSIS: URINE, VOIDED: ? - SATISFACTORY FOR EVALUATION. ? - NEGATIVE FOR HIGH-GRADE UROTHELIAL CARCINOMA. Electronically Signed Out ? Gregory Penny M.D. [facility] 03/16/2019 03/17/2019 1:3 8 PM CDT Comment:URINE, VOIDED us Mu Alba III, MD PATHOLOGY/CYTOLOGY ORDER CHAPO Final Result Performing Organization Address City/State/[facility] Co de Phone Number [facility] [address] [place] [address], [phone] documented in this encounter Visit Diagnoses Diagnosis Microscopic hematuria documented in this encounter Care Teams Software Publisher Relationship Specialty Start Date End Date Casa Hadley MD [address] [place] [address] PCP - General INTERNAL MEDICINE 03/16/19 documented as of this encounter
--- OUTSIDE RECORDS SUMMARY | 2024-09-08 20:42 | XMS_ITS | Encounter Summary ---
Author Organization [facility] Address [address] [place] [address]. [place] [address] [place] [address] Care Team Providers Care Tax Audit Manager Name Role Phone Casa Encarnacion MD Primary Care Provider [phone] Reason for Visit * Auth/Cert Specialty Diagnoses / Procedures Referred By Rosalva t Referred To Contact Diagnoses H25.9 Procedures REMV CATARACT EXTRACAP,INSERT LENS EXTRACTION CATARACT right EYE WITH LENS IMPLANT Referral ID Status Reason Start Date Expiration Date Visits Re quested Visits Authorized [id number] 1 1 Encounter Details Date Type Department Care Team (Late st Contact Info) Description 12/24/2023 12:02 PM CDT - 12/24/2023 12:[address] [facility] [address] [place] [address] Catherine Newman MD [address] [place] [address] EXTRACTION CATARACT right EYE WITH LENS IMPLANT Surgery Details Date/Time Status Location OR Service Patient Class Case Class Case Type Trauma Case? 12/24/2023 12:02 PM Posted [facility] OR OR 1 Ophthalmology Short Stay/Outpat ient Surgery No Panel 1 Procedure LRB Anes Op Region Wound Class Comments EXTRACTION CATARACT right EYE WITH LENS IMPLANT Right Monitor Anesthesia Care Eye Clean Surgeon Surgeon [...] Date Author Status No 01/26/2020 5:15 PM Uniuqe Rueda RN Active documented in this encounter Medications [...] during recuperation were discussed with the patient/family/personal public utilities sales representative. Reasonable alternatives to the patient's proposed procedure/surgery including benefits, risks, and side effects related to the alternatives and the risks related to not receiving the proposed care were also discussed with the patient/family/personal public utilities sales representative. Questions were answered and the patient/family/personal public utilities sales representative verbalized understanding and desires to proceed. Source Note - [facility] - 12/24/2023 12:00 AM CDT documented in this encounter OR Notes * Brief Op Note - Catherine Newman MD - 12/24/2023 12:19 PM CDT Patient: Luanne Gotti 1935 [id number] Preoperative Diagnosis: Visually significant cataract Postoperative Diagnosis: Visually significant cataract Procedure: Cataract Extraction with Intraocular Lens Placement, RIGHT Eye Surgeon: Catherine Newman MD Associate Account Manager: none Anesthesia: Monitor Anesthesia Care Implant: Implant Name Type Inv. Item Serial No. Barber Tool Sharpener Lot No. LRB No. Used Action TECNIS 1-PIECE IOL [id number] [employer] [id number] Right 1 Implanted Specimen: none Estimated Blood [...] Bag 12/24/2023 11:30 AM CDT 10 mL/hr lidocaine (PF) (XYLOCAINE) 1 % injection As needed, Starting on Fri12/24/23 at 1211, Until Fri12/24/23 at 1218, Intra-Op Given 12/24/2023 12:11 PM CDT 2 mg Righ t Eye moxifloxacin (VIGAMOX) 0.5 % ophthalmic solution [...] Fri12/24/23 at 1126, Created by cabinet override tetracaine 0.5 % ophthalmic solution As needed, Starting on Fri12/24/23 at 1211, Until Fri12/24/23 at 1218, Intra-Op Given 12/24/2023 12:11 PM CDT 2 drops tropicamide (MYDRIACYL) 1 % ophthalmic solution 1 [...] Mamta Guido RN)1136 (Given - Provider: Mamta Giudo RN) proparacaine (ALCAINE) 0.5 % ophthalmic solution [...] 1130 (New Bag - Prov ider: Mamta Guido, RN)1200 (Continued by Anesthesia - Provider: Sofia [...] RN) documented in this encounter Care Teams Tax Audit Manager Relationship Specialty Start Date End Date Casa Encarnacion MD [address] [place] [address] PCP - General INTERNAL MEDICINE 03/16/19 documented as of this encounter
--- OUTSIDE RECORDS SUMMARY | 2024-09-08 20:42 | XMS_ITS | Encounter Summary ---
Author Organization [facility] Address [address] [place] [address]. [place] [address] [place] [address] Care Team Providers Care Milling Machinist Name Role Phone Casa Encarnacion MD Primary Care Provider Encounter Details Date Type Department Care Team (Late st Contact Info) Description 11/13/2023 Scan [facility] Information Services [address] [facility] [place] [address] Scanned, Doc Hospital Social History Tobacco Use Types Packs/Day Years [...] on filedocumented in this encounter Care Teams Milling Machinist Relationship Specialty Start Date End Date Casa Encarnacion MD [address] [place] [address] PCP - General INTERNAL MEDICINE 03/16/19 documented as of this encounter
--- OUTSIDE RECORDS SUMMARY | 2024-09-08 20:42 | XMS_ITS | Encounter Summary ---
Author Organization [facility] Address [address] [place] [address]. [place] [address] [place] [address] Care Team Providers Care Patcher Bowling Ball Name Role Phone Unavailable Primary Care Provider Unavailabl e Encounter Details Date Type Department Care Team (Late st Contact Info) Description 02/24/2002 Abstract [facility] CONVERSION [address] [place] [address] , Generic Conversion, Social History [...]
--- OUTSIDE RECORDS SUMMARY | 2024-09-08 20:42 | XMS_ITS | Encounter Summary ---
Author Organization [facility] Address [address] [place] [address]. [place] [address] [place] [address] Care Team Providers Care Cracker Sprayer Name Role Phone Casa Hadley MD Primary Care Provider Encounter Details Date Type Department Care Team (Late st Contact Info) Description 03/16/2019 Orders Only [facility] [address] [place] [address] [place] [address] [place] [address] [place] [phone] Social History Tobacco Use Types Packs/Day Years Used Date Smoking Tobacco: Never Comments Unknown Sex and Gender Information Value Date Recorded Sex Assigned at Not on file Legal Sex Female 11:02 PM CDT Gender Identity Not on file Sexual Orientation Not on file documented as of this encounter Plan of Treatment Not on file documented as of this encounter Results * CULTURE URINE (03/16/2019 9:58 AM CDT) SPEC DESCRIPTION URINE CLEAN CATCH 03/16/2019 12:23 PM CDT [facility] SPECIAL REQUESTS NO SPECIAL REQUEST 03/16/2019 12:23 PM CDT [facility] CULTURE RESULT >100,000 CFU/mL ENTEROCOCCUS FAECALIS 03/18/2019 8:36 PM CDT [facility] URINE SPECIMEN OBTAINED BY CLEAN CATCH PROCEDURE / Unknown 03/16/2019 9:58 AM CDT 03/16/2019 12:29 PM CDT Narrative Organism Antibiotic Method Susceptibility Enterococcus faecalis AMPICILLIN LEO (VITEK) Sensitive Enterococcus faecalis NITROFURANTOIN LEO (VITEK) Sensitive Enterococcus faecalis GENT. SYNERGY SCREEN ELO (VITEK) Sensitive Enterococcus faecalis LINEZOLID LEO (VITEK) Sensitive Enterococcus faecalis PENICILLIN G LEO (VITEK) Sensitive Enterococcus faecalis STR. SYNERGY SCR LEO (VITEK) Sensitive Enterococcus faecalis TETRACYCLINE LEO (VITEK) Resistant Enterococcus faecalis TIGECYCLINE LEO (VITEK) Sensitive Enterococcus faecalis VANCOMYCIN LEO (VITEK) Sensitive us Mu Alba III, MD MICROBIOLOGY - GENERAL O RDERABLES Final Result [facility] [address] [place] [address], [place] [phone] [facility] [address] [place] [address], * (ABNORMAL) URINALYSIS (03/16/2019 9:58 AM CDT) COLOR (U) YELLOW 03/16/2019 12:45 PM CDT [facility] TRANSPARENCY SLIGHTLY CLOUDY 03/16/2019 12:45 PM CDT [facility] SPECIFIC GRAVITY (U) 1.015 1.000 - 1.025 03/16/2019 12:45 PM CDT [facility] U PH 6.0 5.0 - 8.0 03/16/2019 12:45 PM CDT [facility] LEUKOCYTES (U) 2+(A) NEGATIVE 03/16/2019 12:45 PM CDT [facility] NITRITES NEGATIVE NEGATIVE 03/16/2019 12:45 PM CDT [facility] PROTEIN (U) TRACE(A) NEGATIVE 03/16/2019 12:45 PM CDT [facility] URINE GLUCOSE NEGATIVE NEGATIVE 03/16/2019 12:45 PM CDT [facility] KETONES MG/DL (U) NEGATIVE NEGATIVE 03/16/2019 12:45 PM CDT [facility] UROBILINOGEN 0.2 <1.0 EU/DL 03/16/2019 12:45 PM CDT [facility] BILIRUBIN (U) NEGATIVE NEGATIVE 03/16/2019 12:45 PM CDT [facility] BLOOD (U) NEGATIVE NEGATIVE 03/16/2019 12:45 PM CDT [facility] WBC/HPF 50-100(A) 0 - 5 /HPF 03/16/2019 12:45 PM CDT [facility] RBC/HPF 0-5 0 - 5 /HPF 03/16/2019 12:45 PM CDT [facility] EPI/HPF FEW /LPF 03/16/2019 12:45 PM CDT [facility] BACTERIA (U) 2+ /HPF 03/16/2019 12:45 PM CDT [facility] MUCUS PRESENT 03/16/2019 12:45 PM CDT [facility] OTHER CASTS (U) HYALINE /LPF 9 12:45 PM CDT [facility] Comment:5-10 URINE SPECIMEN OBTAINED BY CLEAN CATCH PROCEDURE / Unknown 03/16/2019 9:58 AM CDT us Mu Alba III, MD URINE ORDERABLES Final R esult [facility] [address] [place] [address], * CYTOLOGY GENERIC (03/16/2019 12:00 AM CDT) CYTOLOGY OTHER [facility] ? Department of Laboratory Medicine ?[address] ?[place] [address] ? , extension [phone] ? Pathology Report ? Non-gynecologic Cytology Report Name: BRENDA WILSON ? Specimen #: [id number] Age: 6 1935 (Age: 84) ?Location: [facility] Sex: F ?Procedure Date: 03/16/2019 Hospital #: [id number] ?Date Received: 03/17/2019 Date Reported: 03/18/2019 Provider: MU ALBA III ?CASA HADLEY Source: URINE, VOIDED Clinical History: Microscopic hematuria Gross Description: SPECIMEN RECEIVED: ? 50 cc's of yellow fluid ? SLIDES PREPARED: ?1 ThinPrep ?STAINS: ? Papanicolaou FINAL DIAGNOSIS: URINE, VOIDED: ? - SATISFACTORY FOR EVALUATION. ? - NEGATIVE FOR HIGH-GRADE UROTHELIAL CARCINOMA. Electronically Signed Out ? Gregory Penny M.D. [facility] 03/16/2019 03/17/2019 1:3 8 PM CDT Comment:URINE, VOIDED us Mu Alba III, MD PATHOLOGY/CYTOLOGY ORDER CHAPO Final Result [facility] [address] [place] [address], [place] [phone] documented in this encounter Visit Diagnoses Diagnosis Microscopic hematuria- Primary documented in this encounter Care Teams Cracker Sprayer Relationship Specialty Start Date End Date Casa Hadley MD [address] [place] [address] PCP - General INTERNAL MEDICINE 03/16/19 documented as of this encounter
--- OUTSIDE RECORDS SUMMARY | 2024-09-08 20:42 | XMS_ITS | Encounter Summary ---
Author Organization [facility] Address [address] [place] [address]. [place], [place] [address] [place] [address] Care Team Providers Care Wagon Driver Name Role Phone Casa Encarnacion MD Primary Care Provider [phone] Reason for Visit * Reason Onset Date Comments Results 03/15/2020 Encounter Details Date Type Department Care Team (Late st Contact Info) Description 03/15/2020 Telephone [facility] [address] [place] [address] Julien Yoo MD [address] 5[address] [place] [address] Results Social History Tobacco Use Types Packs/Day [...] PM CDT documented as of this encounter Functional Status [...] Mejia RN Active documented in this encounter Progress Notes * Caitie Goff RN - 03/15/2020 9:01 AM CDT Spoke with patient and made aware that tests where great and no change needed. She voiced understanding. * Caitie Goff RN - 03/15/2020 9:01 AM CDT ----- Message from Julien Yoo MD sent at 03/08/2020 4:32 PM CDT ----- Inform them of the excellent results. No change in plan, she's reached the goal of <70 documented in this encounter Plan of Treatment Not on file documented as of this encounter Visit Diagnoses Not on filedocumented in this encounter Care Teams Wagon Driver Relationship Specialty Start Date End Date Casa Encarnacion MD [address] [place] [address] PCP - General INTERNAL MEDICINE 03/16/19 documented as of this encounter
--- OUTSIDE RECORDS SUMMARY | 2024-09-08 20:42 | XMS_ITS | Encounter Summary ---
Author Organization [facility] Address [address] [place] [address]. [place] [address] [place] [address] Care Team Providers Care Rigger Apprentice Name Role Phone Unavailable Primary Care Provider Unavailabl e Encounter Details Date Type Department Care Team (Late st Contact Info) Description 06/22/1996 Abstract [facility] CONVERSION [address] [place] [address] , Generic Conversion, Social History [...]
--- OUTSIDE RECORDS SUMMARY | 2024-09-08 20:42 | XMS_ITS | Encounter Summary ---
Author Organization [facility] Address [address] [place] [address]. [place] [address] [place] [address] Care Team Providers Care Radio Operator Name Role Phone Unavailable Primary Care Provider Unavailabl e Encounter Details Date Type Department Care Team (Late st Contact Info) Description 12/20/2004 Abstract [facility] CONVERSION [address] [place] [address] [place] [address] [place] [phone] Social History Tobacco Use Types Packs/Day [...]
--- OUTSIDE RECORDS SUMMARY | 2024-09-08 20:42 | XMS_ITS | Encounter Summary ---
Author Organization [facility] Address [address] [place] [address]. [place] [address] [place] [address] Care Team Providers Care Embossing Toolsetter Name Role Phone Casa Encarnacion MD Primary Care Provider Encounter Details Date Type Department Care Team (Latest Contact Info) Description 03/08/2020 Travel Social History Tobacco Use Types Packs/Day [...] on filedocumented in this encounter Care Teams Embossing Toolsetter Relationship Specialty Start Date End Date Casa Encarnacion MD [address] [place] [address] PCP - General INTERNAL MEDICINE 03/16/19 documented as of this encounter
--- OUTSIDE RECORDS SUMMARY | 2024-09-08 20:42 | XMS_ITS | Encounter Summary ---
Author Organization [facility] Address [address] [place] [address]. [place] [address] [place] [address] Care Team Providers Care Volcanologist Name Role Phone Unavailable Primary Care Provider Unavailabl e Encounter Details Date Type Department Care Team (Late st Contact Info) Description 06/19/2009 [facility] [address] [place] [phone] , Generic ConversionMD Social History Tobacco Use Types Packs/Day Years [...] Procedure Name Priority Date/Time Associated Diagnosis Comments CBC,CONVERSION Routine 06/19/2009 12:00 AM CDT COMPREHENSIVE METABOLIC PANEL Routine 06/19/2009 12:00 AM CDT documented in this encounter Results * (ABNORMAL) CBC,CONVERSION (06/19/2009 12:00 AM CDT) WBC 7.3 3.8 - 10.8 thous/mcl [employer] TO EPIC CONVERSION RBC 3.52(L) 3.90 - 5.20 mill/mcl [employer] TO EPIC CONVERSION HGB 10.4(L) 12.0 - 15.6 g/dl [employer] TO EPIC CONVERSION HCT 32.9(L) 35.0 - 46.0 % [employer] TO EPIC CONVERSION MCV 94 80.0 - 100.0 FL [employer] TO EPIC CONVERSION MCH 29.5 27.0 - 33.0 PG [employer] TO EPIC CONVERSION MCHC 31.6 32.0 - 36.0 % [employer] TO EPIC CONVERSION PLATELET COUNT 248 130 - 400 thous/mcl [employer] TO EPIC CONVERSION 06/19/2009 06/19/2009 Narrative [employer] TO EPIC CONVERSION - 06/19/2009 1:21 PM CDT Reviewed by IMAN Jun 19 2009 ??1:22:00:000PM us Generic Conversion Md [facility] Final R Spring Pharmaceuticalsult [employer] TO EPIC CONVERSION * COMPREHENSIVE METABOLIC PANEL (06/19/2009 12:00 AM CDT) SODIUM S/P/B 143 135 - 146 meq/l [employer] TO EPIC CONVERSION POTASSIUM S/P/B 4.3 3.5 - 5.3 meq/l [employer] TO EPIC CONVERSION CHLORIDE S/P/B 111 95 - 108 meq/l [employer] TO EPIC CONVERSION CO2 28.5 17 - 31 meq/l [employer] TO EPIC CONVERSION GLUCOSE 85 70 - 125 mg/dl [employer] TO EPIC CONVERSION BUN 14 7 - 25 mg/dl [employer] TO EPIC CONVERSION CREATININE S/P/B 0.8 0.5 - 1.4 mg/dl [employer] TO EPIC CONVERSION CALCIUM S/P/B 8.0 8.5 - 10.3 mg/dl [employer] TO EPIC CONVERSION 06/19/2009 06/19/2009 Narrative [employer] TO EPIC CONVERSION - 06/19/2009 1:15 PM CDT Reviewed by IMAN Jun 19 2009 ??1:22:00:000PM us Generic Conversion Md [facility] Final R esult [employer] TO EPIC CONVERSION documented in this encounter Visit Diagnoses Not on filedocumented in this encounter
--- OUTSIDE RECORDS SUMMARY | 2024-09-08 20:42 | XMS_ITS | Encounter Summary ---
Author Organization [facility] Address [address] [place] [address]. [place], [place] [address] [place] [address] Care Team Providers Care Machinist Helper Marine Name Role Phone Unavailable Primary Care Provider Unavailabl e Encounter Details Date Type Department Care Team (Late st Contact Info) Description 06/15/2009 Abstract [facility] [address] [place] [address] KRIS MILNER Social History Tobacco Use Types Packs/Day Years Used Date Smoking Tobacco: Never Comments Unknown Sex and Gender Information Value Date Recorded Sex Assigned at Not on file Legal Sex Female 11:02 PM CDT Gender Identity Not on file Sexual Orientation Not on file documented as of this encounter Plan of Treatment Not on file documented as of this encounter Visit Diagnoses Diagnosis Other specified cardiac dysrhythmias documented in this encounter
--- OUTSIDE RECORDS SUMMARY | 2024-09-08 20:42 | XMS_ITS | Encounter Summary ---
Author Organization [facility] Address [address] [place] [address]. [place] [address] [place] [address] Care Team Providers Care Manager Research Development Name Role Phone Unavailable Primary Care Provider Unavailabl e Encounter Details Date Type Department Care Team (Late st Contact Info) Description 10/08/2000 Abstract [facility] CONVERSION [address] [place] [address] , Generic Conversion, Social History [...]
--- OUTSIDE RECORDS SUMMARY | 2024-09-08 20:42 | XMS_ITS | Encounter Summary ---
Author Organization [facility] Address [address] [place] [address]. [place] [address] [place] [address] Care Team Providers Care Front Elevator Operator Name Role Phone Unavailable Primary Care Provider Unavailabl e Encounter Details Date Type Department Care Team (Late st Contact Info) Description 11/06/2002 Abstract [facility] [address] [place] [address] , Generic Conversion, Social History [...]
--- OUTSIDE RECORDS SUMMARY | 2024-09-08 20:42 | XMS_ITS | Encounter Summary ---
Author Organization [facility] Address [address] [place] [address]. [place] [address] [place] [address] Care Team Providers Care Crocodile Farmer Name Role Phone Unavailable Primary Care Provider Unavailabl e Encounter Details Date Type Department Care Team (Late st Contact Info) Description 02/11/2014 Abstract [facility] [address] [place] [address] Tyesha Salazar MD [address] [place] [address] Social History Tobacco Use Types [...]
--- OUTSIDE RECORDS SUMMARY | 2024-09-08 20:42 | XMS_ITS | Encounter Summary ---
Author Organization [facility] Address [address] [place] [address]. [place] [address] [place] [address] Care Team Providers Care Heavy Equipment Operating Engineer Name Role Phone Unavailable Primary Care Provider Unavailabl e Encounter Details Date Type Department Care Team (Late st Contact Info) Description 11/03/2002 Abstract [facility] CONVERSION [address] [place] [address] , Generic Conversion, Social History [...]
--- OUTSIDE RECORDS SUMMARY | 2024-09-08 20:42 | XMS_ITS | Encounter Summary ---
Author Organization [facility] Address [address] [place] [address]. [place] [address] [place] [address] Care Team Providers Care Intelligence Engineer Name Role Phone Casa Encarnacion MD Primary Care Provider [phone] Reason for Visit * Auth/Cert Specialty Diagnoses / Procedures Referred By Rosalva t Referred To Contact Diagnoses H25.9 Procedures REMV CATARACT EXTRACAP,INSERT LENS EXTRACTION CATARACT right EYE WITH LENS IMPLANT Referral ID Status Reason Start Date Expiration Date Visits Re quested Visits Authorized [id number] 1 1 Encounter Details Date Type Department Care Team (Late st Contact Info) Description 12/24/2023 12:00 PM CDT Anesthesia Event [facility] [address] [place] [address] Salazar Verde, EFFICIENCY MANAGER [address] [place] [address] Anesthesia Record Procedure Summary Procedure Name Responsible Anesthesiologist Anesthesia Start Time Anesthesia Stop Time EXTRACTION CATARACT right EYE WITH LENS IMPLANT (Right: Eye) 12/24/23 1200 12/24/23 1218 Events Date Time Event Comment 12/24/2023 1141 AN EFFICIENCY MANAGER Prepped 1141 AN Anesthesia Prepped 1145 1200 An Start Patient ID and consent checked and patient reassessed. 1200 An Start Data 1200 Nasal Cannula Applied 1200 AN Immediate Reassess The pa tient was reevaluated immediately before sedation or regional anesthesia. 1201 Anesthesia Ready 1215 an stop data 1218 Post Anesthetic Care Handoff I completed my handoff to the receiving nurse during which we: 1. Identified the patient 2. Identified the responsible provider 3. Reviewed the pertinent medical history 4. Discussed the surgical course 5. Reviewed intra-op anesthesia management and issues during anesthesia 6. Set expectations for post-procedure period 7. Allowed opportunity for questions and acknowledgement of understanding. 1218 An Stop Meds Name Total midazolam 2 mg/2 mL injection 2 mg ketamine 50 mg/mL injection 15 mg lactated ringers infusion 500 mL * Agents Name O2 Ancillary O2 * Blood No blood administrations on file. Lines, Drains, and Airways Type Details Placement Removal Peripheral IV Placement Date: 12/24/23; Placement Time: 1130; Placed Outside of This Facility?: No; Size: 20 G; Orientation: Distal, Right; Location: Forearm; Site Prep: Chlorhexidine; Local Anesthetic: None; Inserted By: CHRIST RN; Insertion attempts: 1; Ultrasound-guided Placement?: No; Patient Tolerance: Tolerated well; Removal Date: 12/24/23; Removal Time: 1239; Removal Reason: Patient Discharged 12/24/23 1130 by Mamta Guido RN 12/24/23 1239 by Merle Elizabeth RN Surgical/Incision 12/24/23; 1215; Surgical Wound; Eye; Right; PAPER TAPE AND PLASTIC EYE SHIELD; 12/24/23; 1445 12/24/23 1215 by Yary Cottrell RN 12/24/23 1445 by Automatic Discharge Provider documented in this [...] Mejia RN Active documented in this encounter OR Notes * Anesthesia Postprocedure Evaluation - Salazar Verde CRNA - 12/24/2023 1:50 PM CDT Anesthesia Post-op Note Luanne Gotti Procedure(s): EXTRACTION CATARACT right EYE WITH LENS IMPLANT (Right: Eye) Anesthesia type: MAC Vitals: 12/24/23 1219 BP: (!) 151/73 Vitals: 12/24/23 1219 Pulse: 64 Vitals: 12/24/23 1219 Resp: 16 Vitals: 12/24/23 1219 Temp: 36.7 ??C Vitals: 12/24/23 1219 SpO2: 99% Patient Location: Phase II/Outpatient Level of Consciousness: alert and awake Pain Management: adequate analgesia Airway Patency: patent Respiratory Status: acceptable Cardiovascular Status: acceptable Post-Op Nausea: none Postoperative Hydration: euvolemic There were no known notable events for this encounter. * Anesthesia Preprocedure Evaluation - Salazar Verde CRNA - 12/18/2023 10:13 AM CDT Anesthesia ROS/MED History Reviewed: Patient summary , Medications , Labs Pre-Anesthetic State: awake, alert and responds appropriately Pulmonary neg pulmonary ROS Cardiovascular (+) hypertension Neuro/Psych (+) CVA Substance Use no history of substance abuse GI/Hepatic/Renal neg GI/hepatic/renal ROS Endo/Other neg endo/other ROS GENERAL COMMENTS ++++++++++++++++++++++++++++++++++++ SUMMARY: ++++++++++++++++++++++++++++++++++++ The left ventricular size [...] Airway Mallampati: II TM Distance: >3 FB Dental Pulmonary Pulmonary exam normal Cardiovascular Cardiovascular exam normal STOP-Bang Assessment: Anesthesia Plan ASA 2 Intravenous Induction Anesthesia type: MAC Informed Consent Anesthetic plan and risks discussed with patient of whom. . documented in this encounter Plan of Treatment Not on file documented as of this encounter Visit Diagnoses Not on filedocumented in this encounter Administered Medications Inactive Administered Medications - up to 3 most recent administrations Medication Order MAR Action Action Date Dose Rate Site ketamine (KETALAR) injection Intravenous, PRN, Starting on Fri12/24/23 at 1205, Until Fri12/24/23 at 1218, Anesthesia Intra-Op Given 12/24/2023 12:05 PM CDT 15 mg lactated ringers infusion at 10 mL/hr, Intravenous, Continuous, Starting on Fri12/24/23 at 1130, Until Fri12/24/23 at 1445, Infuse at TKO rate, Pre-Op Restarted 12/24/2023 12:14 PM CDT Continued by Anesthesia 12/24/2023 12:00 PM CDT 10 mL/hr New Bag 12/24/2023 11:30 AM CDT 10 mL/hr midazolam (VERSED) injection Intravenous, PRN, Starting on Fri12/24/23 at 1201, Until Fri12/24/23 at 1218, Anesthesia Intra-Op Given 12/24/2023 12:01 PM CDT 2 mg documented in this encounter Care Teams Intelligence Engineer Relationship Specialty Start Date End Date Casa Encarnacion MD [address] [place] [address] PCP - General INTERNAL MEDICINE 03/16/19 documented as of this encounter
--- OUTSIDE RECORDS SUMMARY | 2024-09-08 20:42 | XMS_ITS | Encounter Summary ---
Author Organization [facility] Address [address] [place] [address]. [place] [address] [place] [address] Care Team Providers Care Promotions Associate Name Role Phone Unavailable Primary Care Provider Unavailabl e Encounter Details Date Type Department Care Team (Late st Contact Info) Description 06/15/2009 Abstract [facility] [address] [place] [address] , Ayleen Evangelista MD Social History Tobacco [...] Associated Diagnosis Comments EXTERNAL EJECTION FRACTION Routine 06/15/2009 12:00 AM CDT documented in this encounter Results * EXTERNAL EJECTION FRACTION (06/15/2009 12:00 AM CDT) EJECTION FRACTION [facility] Comment: -- ??CARDIAC STRUCTURES:-- ??EF was estimated at 75 %. -- ??CORONARY CIRCULATION:-- ??Left main: Angiographically normal.-- ??LAD: Angiography showed minor luminal irregularities.-- ??Circumflex: Angiography showed minor luminal irregularities.-- ??RCA: Angiography showed minor luminal irregularities. Prepared and signed by Efe Nuñez 06/16/2009 16:17:51 HEMODYNAMIC TABLES Pressures: ??BaselinePressures: ??- HR: 75Pressures: ??- Rhythm:Pressures: ??-- Aortic Pressure (S/D/M): 105/54/76Pressures: ??-- Left Ventricle (s/edp): 103/20/--Pressures: ??PullbackPressures: ??- HR: 70Pressures: ??- Rhythm:Pressures: ??-- Aortic Pressure (S/D/M): 99/45/70Pressures: ??-- Left Ventricle (s/edp): 109/18/-- Outputs: ??BaselineOutputs: ??-- CALCULATIONS: [age]Outputs: ??-- CALCULATIONS: Body Surface Area: 1.85Outputs: ??-- CALCULATIONS: Height in cm: 170.00Outputs: ??-- CALCULATIONS: Sex: FemaleOutputs: ??-- CALCULATIONS: Weight in k.00 Anatomical Region Laterality Modality Other 06/15/2009 06/15/2009 Narrative 06/15/2009 12:00 AM CDT ?Left coronary angiography.?Right coronary angiography.?Left heart catheterization with ventriculography. PROCEDURE: Prior to the procedure, the risks and alternatives of the proceduresand conscious sedation were explained to Ryan dick M.D. us Generic Conversion Md SMITH OTHER Final R esult documented in this encounter Visit Diagnoses Not on filedocumented in this encounter
--- OUTSIDE RECORDS SUMMARY | 2024-09-08 20:42 | XMS_ITS | Encounter Summary ---
Author Organization [facility] Address [address] [place] [address]. [place] [address] [place] [address] Care Team Providers Care Pole Lift Operator Name Role Phone Unavailable Primary Care Provider Unavailabl e Encounter Details Date Type Department Care Team (Late st Contact Info) Description 06/14/[address] [facility] [address] [place] [address] [place] [address] [place] [phone] Social History Tobacco Use Types Packs/Day Years [...]
--- OUTSIDE RECORDS SUMMARY | 2024-09-08 20:42 | XMS_ITS | Encounter Summary ---
Author Organization [facility] Address [address] [place] [address]. [place] [address] [place] [address] Care Team Providers Care Sustainability Consultant Name Role Phone Casa Encarnacion MD Primary Care Provider [phone] Reason for Visit * Auth/Cert Specialty Diagnoses / Procedures Referred By Contac t Referred To Contact Diagnoses RECURRENT UTI'S Procedures CYSTOSCOPY Referral ID Status Reason Start Date Expiration Date Visits Re quested Visits Authorized [id number] 1 1 Encounter Details Date Type Department Care Team (Late st Contact Info) Description 07/06/2019 10:08 AM CDT - 07/06/2019 10:43 AM CDT Surgery [place] [address] [place] [address] [place] [address] [place] [address] [place] [phone] CYSTOSCOPY Surgery Details Date/Time Status Location OR Service Patient Class Case Class Case Type Trauma Case? 07/06/2019 10:08 AM Posted [facility] OR Uro Urology Short Stay/Outpati ent Surgery No Panel 1 Procedure LRB Anes Op Region Wound Class Comments CYSTOSCOPY N/A Local Bladder Clean Contaminated Surgeon Surgeon Role Service Panel Mu Alba III, MD Primary Urology 1 documented in this encounter Social History [...] through Care Everywhere. * Cystoscopy Discharge Instructions ([place]ian) documented in this encounter Medications at Time [...] OR Notes * Brief Op Note - Mu Alba III, MD - 07/06/2019 10:23 AM CDT [facility] Brief Op [facility]SCYSTOSCOPY Procedure Note Luanne Gotti 07/06/2019 1008 Procedure(s) (LRB): CYSTOSCOPY (N/A) Surgeon(s): Mu Alba III, MD Inspector Elevators: None Anesthesia: Local Pre-Op Diagnosis: RECURRENT UTI'S Post-Op Diagnosis: Same Findings: Flocculent debris in bladder Estimated Blood Loss: Minimal Specimens: ID Type Source Tests Collected by Time 1 : Urine from cystoscopy URINE URINE, CYSTOSCOPIC CULTURE URINE Mu Alba III, MD 07/06/20191003 MU ALBA III, MD Date: 07/06/2019 Time: 10:24 AM * Op Note - Mu Alba III, MD - 07/06/2019 12:00 AM [...] I will get the culture back from [place]. She has asked me to give her [...] DESCRIPTION URINE, CYSTOSCOPIC 07/06/2019 10:05 AM CDT [facility] SPECIAL REQUESTS NO SPECIAL REQUEST 07/06/2019 10:05 AM CDT [facility] CULTURE RESULT >100,000 CFU/mL KLEBSIELLA PNEUMONIAE PNEUMONIAE 07/07/2019 8:53 PM CDT [facility] Urine specimen (specimen) URINE CYTOLOGIC MATERIAL [...] Klebsiella pneumoniae pneumoniae TETRACYCLINE LEO (VITEK) Sensitive us Mu Alba III, MD MICROBIOLOGY - GENERAL O RDERABLES Final Result [facility] [address] [place] [address], [place] [phone] [id number] [facility] [place] [address], documented in this encounter Visit Diagnoses Not on filedocumented in this encounter Administered Medications Inactive Administered Medications - up to 3 most recent administrations Medication Order MAR Action Action Date Dose Rate Site lidocaine 2 % URO-JET jelly As needed, Starting on Fri07/06/19 at 1002, Until Fri07/06/19 at 1011, Intra-Op Given 07/06/2019 10:02 AM CDT 1 Application. documented in this encounter Active and Recently Administered Medications Times are shown in CDT. PRN Medication Order 07/04/2019 07/05/2019 07/06/2019 lidocaine 2 % URO-JET jelly (CANCELED) As needed, Starting on Fri07/06/19 at 1002, Until Fri07/06/19 at 1011, Intra-Op 1002 (Given - Provid er: Mu Alba III, MD) documented in this encounter Care Teams Sustainability Consultant Relationship Specialty Start Date End Date Casa Encarnacion MD [address] [place] [address] PCP - General INTERNAL MEDICINE 03/16/19 documented as of this encounter
--- OUTSIDE RECORDS SUMMARY | 2024-09-08 20:42 | XMS_ITS | Encounter Summary ---
Author Organization [facility] Address [address] [place] [address]. [place] [address] [place] [address] Care Team Providers Care Photography Intern Name Role Phone Casa Encarnacion MD Primary Care Provider [phone] Encounter Details Date Type Department Care Team (Latest Contact Info) Description 01/26/2020 Travel Social History Tobacco Use Types Packs/Day [...] as of this encounter Functional Status * Question Answer Date of Assessment Author Status Do you have serious difficulty walking or climbing stairs? No 01/26/2020 5:15 PM Unique Rueda RN Ac tive * Question Answer Date of Assessment Author Status Do you have difficulty dressing or bathing? No 01/26/2020 5:15 PM Unique Rueda R N Active Because of a physical, mental, or emotional condition, do you have difficulty doing errands alone such as visiting a doctor's office or shopping? No 01/26/2020 5:15 PM Unique Rueda RN Act johnathon * RETIRED Are you [...] or making decisions? No 01/26/2020 5:15 PM Unique Rueda R N Active * Because of a physical, mental, or emotional condition, do you have serious difficulty concentrating, remembering, or making decisions? Answer Entry Date Author Status No 01/26/2020 5:15 PM Unique Rueda RN Active documented in this encounter Plan of Treatment Not on file documented as of this encounter Visit Diagnoses Not on filedocumented in this encounter Care Teams Photography Intern Relationship Specialty Start Date End Date Casa Encarnacion MD [address] [place] [phone] PCP - General INTERNAL MEDICINE 03/16/19 documented as of this encounter
--- OUTSIDE RECORDS SUMMARY | 2024-09-08 20:42 | XMS_ITS | Encounter Summary ---
Author Organization [facility] Address [address] [place] [address]. 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
--- OUTSIDE RECORDS SUMMARY | 2024-09-08 20:42 | XMS_ITS | Encounter Summary ---
Author Organization [facility] Address [facility] [place] [address] [place] [address] Care Team Providers Care Mechanical Service Specialist Name Role Phone Casa Encarnacion MD Primary Care Provider [phone] Encounter Details Date Type Department Care Team (Latest Contact Info) Description 03/08/2020 2:43 PM CDT - 03/08/2020 11:59 PM CDT Hospital Encounter [facility] [address] [place] [address] Julien Yoo MD [address] 5[address] [place], [place] [phone] Discharge Disposition: Home or Self Care (Routine [...] tablet (1,000 mcg total) by mouth daily. Cholecalciferol (VITAMIN D) 50 MCG (2000 UT) Tab Take 2,000 Units by mouth daily. 4 Multiple Vitamins-Minerals (ICAPS AREDS 2) Cap Take 2 tablets by mouth daily. 4 psyllium 51.7 % packet Take 1 packet by mouth nightly at bedtime. 4 documented as of this encounter Plan of Treatment Not on file documented as of this encounter Procedures Procedure Name Priority Date/Time Associated Diagnosis Comments LIPOPROTEIN, LDL CHOL, DIRECT Routine 03/08/2020 3:01 PM CDT Hyperlipidemia LDL goal <70 documented in this encounter Results * LIPOPROTEIN, LDL CHOL, DIRECT (03/08/2020 3:01 PM CDT) DIRECT LDL 51 MG/DL 03/08/2020 3:45 PM CDT [facility] Comment:<100 OPTIMAL 03/08/2020 3:01 PM CDT Julien Yoo MD LABORATORY Final Result [facility] [address] [place] [address], [id number] documented in this encounter Visit Diagnoses Diagnosis Hyperlipidemia LDL goal <70 Other and unspecified hyperlipidemia documented in this encounter Care Teams Mechanical Service Specialist Relationship Specialty Start Date End Date Casa Encarnacion MD [address] [place] [address] PCP - General INTERNAL MEDICINE 03/16/19 documented as of this encounter
--- OUTSIDE RECORDS SUMMARY | 2024-09-08 20:42 | XMS_ITS | Encounter Summary ---
Author Organization [facility] Address [address] [place] [address]. [place] [address] [place] [address] Care Team Providers Care Bulb Sorter Name Role Phone Unavailable Primary Care Provider Unavailabl e Encounter Details Date Type Department Care Team (Late st Contact Info) Description 06/08/1999 Abstract [facility] [address] [place] [address] , Generic Conversion, Social History [...]
--- OUTSIDE RECORDS SUMMARY | 2024-09-08 20:42 | XMS_ITS | Encounter Summary ---
Author Organization [facility] Address [facility] [place] [address] [place] [address] Care Team Providers Care Theatre Manager Name Role Phone Casa Encarnacion MD Primary Care Provider [phone] Encounter Details Date Type Department Care Team (Latest Contact Info) Description 12/18/2023 Travel Social History Tobacco Use Types Packs/Day [...] on filedocumented in this encounter Care Teams Theatre Manager Relationship Specialty Start Date End Date Casa Encarnacion MD [address] [place] [address] PCP - General INTERNAL MEDICINE 03/16/19 documented as of this encounter
--- OUTSIDE RECORDS SUMMARY | 2024-09-08 20:42 | XMS_ITS | Encounter Summary ---
Author Organization [facility] Address [address] [place] [address]. [place], [place] [address] [place] [address] Care Team Providers Care Manager Immunology Name Role Phone Unavailable Primary Care Provider Unavailabl e Encounter Details Date Type Department Care Team (Late st Contact Info) Description 09/20/2010 Abstract [facility] [address] [place] [address] Adam Pulido MD Social History Tobacco Use Types Packs/Day Years Used Date Smoking Tobacco: Never Comments Unknown Sex and Gender Information Value Date Recorded Sex Assigned at Not on file Legal Sex Female 11:02 PM CDT Gender Identity Not on file Sexual Orientation Not on file documented as of this encounter Plan of Treatment Not on file documented as of this encounter Visit Diagnoses Diagnosis Urinary tract infection Urinary tract infection, site not specified documented in this encounter
--- OUTSIDE RECORDS SUMMARY | 2024-09-08 20:42 | XMS_ITS | Encounter Summary ---
Author Organization [facility] Address [address] [place] [address]. [place] [address] [place] [address] Care Team Providers Care Billet Worker Name Role Phone [place] Encarnacion MD Primary Care Provider Reason for Visit * Reason Comments ECG (SCAN) Encounter Details Date Type Department Care Team ([facility] st Contact Info) Description 01/26/2020 Scan [facility] [address] [place] [address] Scanned, Documents ECG (SCAN) Social History Tobacco Use Types Packs/Day [...] Assessment Author Status No 01/26/2020 5:15 PM CDUnique Rahman RN Active documented as of this encounter [...] Procedure Name Priority Date/Time Associated Diagnosis Comments ECG GENERIC (SCAN ORDER) Routine 01/26/2020 documented in this encounter Results * ECG (01/26/2020) us Documents Scanned SCANNING Final Result [facility] documented in this encounter Visit Diagnoses Not on filedocumented in this encounter Care Teams Billet Worker Relationship Specialty Start Date End Date [place] Encarnacion MD [address] [place] [phone] PCP - General INTERNAL MEDICINE 03/16/19 documented as of this encounter
--- OUTSIDE RECORDS SUMMARY | 2024-09-08 20:42 | XMS_ITS | Encounter Summary ---
Author Organization [facility] Address [address] [place] [address]. [place] [address] [place] [address] Care Team Providers Care Gaming Cage Cashier Name Role Phone Unavailable Primary Care Provider Unavailabl e Encounter Details Date Type Department Care Team (Late st Contact Info) Description 10/19/2001 Abstract [facility] CONVERSION [address] [place] [address] , Generic Conversion, Social History [...]
--- OUTSIDE RECORDS SUMMARY | 2024-09-08 20:44 | XMS_ITS | Clinical Summary ---
Author Organization [facility] Address [address] [facility] [place] [address] Phone Care Team Providers Care Packing And Wrapping Supervisor Name Role Phone Casa Encarnacion MD Primary Care Provider + Allergies No known active allergies Medications Medication Sig Dispensed Refills Start Date End Date Status chlordiazePOXIDE (LIBRIUM) 5 mg capsule 10/04/2014 Active mirtazapine (REMERON) 30 mg tablet 09/30/2014 Active PSYLLIUM HUSK (METAMUCIL ORAL) Take by mouth. Acti ve atenolol (TENORMIN) 25 mg tablet Take 25 mg by mouth daily. Active estradiol (ESTRACE) 0.01% (0.1 mg/g) vaginal cream Insert vaginally daily. Active nystatin (MYCOSTATIN) 100,000 unit/gram OintmentIndications: Acute vulvitis,Yeast infection of the vagina Apply to affected area 2 times daily. 30 Gram 0 11/08/2015 Active fluconazole (DIFLUCAN) 200 mg tablet Take 1 Tablet (200 mg) by mouth daily Take one tablet every other day for 3 doses.. 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 Immunizations Name Administration Dates Next Due Influenza Seasonal Unspecified Formulation IM Pneumococcal conjugate, unspecified formulation 09/08/2009 Family History Medical History Relation Name Comments Heart Disease Father Hypertension Father Relation Name Status Comments Father Mother Social History Tobacco Use Types Packs/Day Years Used Date Smoking Tobacco: Never Smokeless Tobacco: Never Tobacco Cessation:Counseling Given: No Alcohol Use Standard Drinks/Week Comments Yes 0 (1 standard drink = 0.6 oz pur e alcohol) Sex and Gender Information Value Date Recorded Sex Assigned at Not on file Gender Identity Not on file Sexual Orientation Not on file Last Filed Vital Signs Vital Sign Reading Time Taken Comments Blood Pressure 140/82 11/08/2015 3:33 PM HOSE INSPECTOR Pulse - - Temperature - - Respiratory Rate - - Oxygen Saturation - - Inhaled Oxygen Concentration - - Weight 59 kg (130 lb) 11/08/2015 3:33 PM HOSE INSPECTOR Height 167.6 cm (5' 6 ) 11/08/2015 3:33 PM HOSE INSPECTOR Body Mass Index 20.98 11/08/2015 3:33 PM HOSE INSPECTOR Plan of Treatment Health Maintenance Due Date Last Done Comments DTAP/TDAP/TD VACCINES (1 - Tdap) 02/23/1954 ZOSTER VACCINE (1 of 2) 1987 PNEUMOCOCCAL VACCINE 65+ YEA RS (1 of 1 - PCV) 2002 09/08/2009 RSV VACCINE (60+ or ) (1 - 1-dose 75+ series) 02/23/2012 BREAST CANCER SCREENING 09/08/2013 09/08/19 13 (Previously completed) INFLUENZA VACCINE (#1) 2024 06/08/2014 OSTEOPOROSIS SCREENING Completed 7, 04/22/2014, 09/08/2013 (Previously completed) Care Teams Packing And Wrapping Supervisor Relationship Specialty Start Date End Date Casa Encarnacion MD [address] [place] [phone] PCP - General Internal Medicine 10/12/14
--- OUTSIDE RECORDS SUMMARY | 2024-09-08 20:44 | XMS_ITS | Encounter Summary ---
Author Organization [facility] Address [address] [place] [address] Care Team Providers Care Crutch Maker Name Role Phone Casa Encarnacion MD Primary Care Provider + Encounter Details Date Type Department Care Team (Late st Contact Info) Description 12/26/[address] [facility] APPLICATIONS SALES CONSULTANT - [facility] [address] [facility], [address] [place] [phone] Didi Roberto MD [address] [place] [phone] Social History Tobacco Use Types Packs/Day Years Used Date Smoking Tobacco: Never Smokeless Tobacco: Never Alcohol Use Standard Drinks/Week Comments Yes 0 [...] on filedocumented in this encounter Care Teams Crutch Maker Relationship Specialty Start Date End Date Casa Encarnacion MD [address] [place] [address] PCP - General Internal Medicine 10/12/14 documented as of this encounter
--- OUTSIDE RECORDS SUMMARY | 2024-09-08 20:44 | XMS_ITS ---
Author Organization [facility] Address [address] [place], [place] [id number] Care Team Providers Care Psychological Aide Name Role Phone CYNDY DUTTON Unavailable [phone] Casa Encarnacion Unavailable Unavailable PARVIN CORDOVA Unavailable [phone] REASON FOR VISIT *General care Medications Medication SIG (Take, Route, Frequency, Duration) Notes Start Date End Date Status Atenolol 25 MG Oral Tablet ORAL atenolol 25 MG Oral TabletOriginal Medicationatenolol 25 MG Oral Tablet *Reorder from [employer] for eRx and Interaction Alerts* 12/20/19 15 Active Lisinopril 10 MG Oral Tablet ORAL lisinopril 10 MG Oral TabletOriginal Medicationlisinopril 10 MG Oral Tablet *Reorder from [employer] for eRx and Interaction Alerts* 09/02/20 12 Active Metoprolol Tartrate 25 MG Oral Tablet ORAL metoprolol tartrate 25 MG Oral TabletOriginal Medicationmetoprolol tartrate 25 MG Oral Tablet *Reorder from [employer] for eRx and Interaction Alerts* 09/02/20 12 Active chlordiazepoxide hydrochloride 5 MG Oral Capsule ORAL chlordiazepoxide hydrochloride 5 MG Oral CapsuleOriginal Medicationchlordiazepoxide hydrochloride 5 MG Oral Capsule *Reorder from [employer] for eRx and Interaction Alerts* 09/02/20 12 Active ciclopirox 80 MG/ML Topical Solution ciclopirox 80 MG/ML Topical SolutionOriginal Medicationciclopirox 80 MG/ML Topical Solution *Reorder from [employer] for eRx and Interaction Alerts* 12/17/19 15 Active Vital Signs Weight 136 lbs 02/26/2024 Weight-kg 61.69 kg 02/26/2024 Height 64.00 in 02/26/2024 Height-cm 162.56 cm 02/26/2024 BMI 23.34 kg/m2 02/26/2024 Encounters Encounter Location Date Provider Diagnosis [address] [phone] 02/26/2024 PARVIN ART Other hammer toe(s) (acquired), right foot M20.41 ; Tinea unguium B35.1 ; Other hammer toe(s) (acquired), left foot M20.42 ; Pain in right toe(s) M79.674 ; Pain in left toe(s) M79.675 ; 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 The patient was given education about shoe recommendations specific for the condition. The patient was educated about custom orthotics and how appropriate shoes and orthotics can prevent further worsening of the deformity. The patient was educated about how bad shoe habits can worsen the condition. NSAIDS, P.T., injections and other conservative treatments were discussed. Both surgical and non surgical treatments were discussed, but conservative options were emphasized. 02/26/2024 Tinea unguium (ICD-10 - B35.1) Aseptic debridement of elongated thickened nails x 10 using sterile nippers, nails were debrided in length and thickness by 30% utilizing a nail nipper without incident. The patient was educated regarding all treatment options that include topical and oral antifungal treatments. I discussed the options of taking a sample of the nail to confirm diagnosis. Nail clippings were not sent for pathology analysis. The patient was educated why and how the fungal infection evolved in their feet and the patient was given information regarding how to prevent further infection. The patient was told to keep feet dry and change socks. The patient was told to be careful with old shoes and excessive sweating. The patient was educated regarding both OTC and prescription treatments. 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 After removal of overlying extensive hyperkeratosis, healthy tissue was noted and care was taken to assure that no undermining or probing was present. It should be noted that no probing was noted and no infection or drainage was noted. Plan Of Treatment Treatment Notes Assessment Notes Other hammer toe(s) (acquired), right fo ot The patient was educated regarding how to mechanically stabilize their deformity. The patient was given education about shoe recommendations specific for the condition. The patient was educated about custom orthotics and how appropriate shoes and orthotics can prevent further worsening of the deformity. The patient was educated about how bad shoe habits can worsen the condition. NSAIDS, P.T., injections and other conservative treatments were discussed. Both surgical and non surgical treatments were discussed, but conservative options were emphasized. Tinea unguium Aseptic debridement of elongated thickened nails x 10 using sterile nippers, nails were debrided in length and thickness by 30% utilizing a nail nipper without incident. The patient was educated regarding all treatment options that include topical and oral antifungal treatments. I discussed the options of taking a sample of the nail to confirm diagnosis. Nail clippings were not sent for pathology analysis. The patient was educated why and how the fungal infection evolved in their feet and the patient was given information regarding how to prevent further infection. The patient was told to keep feet dry and change socks. The patient was told to be careful with old shoes and excessive sweating. The patient was educated regarding both OTC and prescription treatments. 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 After removal of overlying extensive hyperkeratosis, healthy tissue was noted and care was taken to assure that no undermining or probing was present. It should be noted that no probing was noted and no infection or drainage was noted. Next Appt Details Follow Up: 3 Months, Reason: Provider Name:CYNDY OMER, 10:40:00 AM, [address] [place], [place], [id number], Progress Notes * BRENDA WILSON MDOB: (89 yo F)Acc No.[id number]:02/26/2024 Patient:?BRENDA WILSON Provider:?PARVIN CORDOVA :1935???Age:89 Y???Sex:Female D ate:02/26/2024 Address: [facility] Subjective: * Chief Complaints: * ???1. *General care. * HPI: ???HPI:?General care?Patient presents to the office for at risk foot care. Patient states that their nails are thickened, elongated and painful. Patient states that it is aggravated by shoe gear. Onset is gradual. Patient denies being diabetic., Patient denies taking prescription blood thinners but does take a daily aspirin., Date last seen by Dr. Encarnacion was 02/2024. MA:yifan.? * ROS:?General / Constitutional:?Patient denies?weakness.?Respiratory:?Patient denies?chronic cough, shortness of breath, sputum production.?Cardiovascular:?Patient denies?chest pain, history of CO, irregular heartbeat.?Musculoskeletal:?Patient complains of?hammertoes, flat feet/ planus.?Peripheral Vascular:?Patient denies?blanching of skin, cold extremities, decreased sensation in extremities.?Skin:?Patient complains of?nail changes, fungal nails, calluses and corns.?Neurologic:?Patient denies?dizziness, gait abnormality, headache.? * Medical History:? * Family History:?Father: PRN - Father: :: Stroke,,known absent , :: Arthritis,,known absent .?Mother: PRN - Mother: :: Arthritis,,known absent .?Brother: SIB - Brother: .?Sister: SIB - Sister: .? * Social History:?Migrated Social History:?Migrated Social History: Smoking Status : Never smoked , History of tobacco use :. * Medications:?Taking Atenolol 25 MG Oral Tablet ORAL , Notes to Pharmacist: atenolol 25 MG Oral TabletOriginal Medicationatenolol 25 MG Oral Tablet *[facility] for eRx and Interaction Alerts*, Taking Lisinopril 10 MG Oral Tablet ORAL , Notes to Pharmacist: lisinopril 10 MG Oral TabletOriginal Medicationlisinopril 10 MG Oral Tablet *Re[facility] from [facility] for eRx and Interaction Alerts*, Taking Metoprolol Tartrate 25 MG Oral Tablet ORAL , Notes to Pharmacist: metoprolol tartrate 25 MG Oral TabletOriginal Medicationmetoprolol tartrate 25 MG Oral Tablet *[facility] for eRx and Interaction Alerts*, Taking chlordiazepoxide hydrochloride 5 MG Oral Capsule ORAL , Notes to Pharmacist: chlordiazepoxide hydrochloride 5 MG Oral CapsuleOriginal Medicationchlordiazepoxide hydrochloride 5 MG Oral Capsule *Reorder from [facility] for eRx and Interaction Alerts*, Taking ciclopirox 80 MG/ML Topical Solution , Notes to Pharmacist: ciclopirox 80 MG/ML Topical SolutionOriginal Medicationciclopirox 80 MG/ML Topical Solution *Reorder from [employer] for eRx and Interaction Alerts* Objective: * Vitals:?Wt: 136 lbs, Wt-k.69 kg, Ht: 64.00 in, Ht-cm: 162.56 cm, BMI: 23.34 Index, Body Surface Area: 1.67. * Examination: ???Physical Examination: ???Vascular: Dorsalis Pedis pulse noted at 1/4 right foot and 1/4 left foot and Posterior Tibial pulse noted at 1/4 right foot and 1/4 left foot, Capillary refill times noted to be less than three seconds x ten, Temperature gradient noted to be warm to cool to bilateral foot, pedal hair present to bilateral foot and no varicosities are noted ?Dermatologic: there are no open lesions, no signs of active clinical infection, no erythema noted, no ecchymoses, nails are elongated thickened and dystrophic with subungual debris x ten, hyperkeratotic tissue plantar first metatarsal head bilateral foot ?Musculoskeletal: there is pain to palpation onto nail plate x ten, no calf pain noted bilaterally, arch height noted at 2/5 non-weight bearing bilaterally, first metatarsophalangeal joint range of motion 30 deg non-weight bearing bilaterally, flexible fifth digit hammer toe deformity noted to bilateral foot reducible with kelikian push up test, pain to palpation sub first metatarsal head hyperkeratotic tissue bilateral foot ?Neurology: protective sensation intact to light touch bilateral digits one through five, vibratory sensation intact to first metatarsophalangeal joint bilaterally. 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 Plan: * Treatment: 2.?Other hammer toe(s) (acqu ired), right foot? Notes: The patient was educated regarding how to mechanically stabilize their deformity. The patient was given education about shoe recommendations specific for the condition. The patient was educated about custom orthotics and how appropriate shoes and orthotics can prevent further worsening of the deformity. The patient was educated about how bad shoe habits can worsen the condition. NSAIDS, P.T., injections and other conservative treatments were discussed. Both surgical and non surgical treatments were discussed, but conservative options were emphasized. ?? 3.?Unspecified atheroscleros is of picayune arteries of extremities, bilateral legs? Notes: Patient educated on risks and aggravating factors of PVD, including conservative treatment options such as a diet and exercise regimen to aid in slowing progression of vascular disease ?? 4.?Acquired keratosis [kerat oderma] palmaris et plantaris? 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 After removal of overlying extensive hyperkeratosis, healthy tissue was noted and care was taken to assure that no undermining or probing was present. It should be noted that no probing was noted and no infection or drainage was noted. ?? * Procedure Codes:?30519 TRIM SKIN LESIONS, 2 TO 4, Modifiers: Q8 , 84325 DEBRIDE NAIL, 6 OR MORE, Modifiers: 59 , Q8 * Follow Up:?3 Months * Billing Information: * Visit Code:? * Procedure Codes:? 17433 TRIM SKIN LESIONS, 2 TO 4. Modifiers: Q8 20559 DEBRIDE NAIL, 6 OR MORE. 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 Patient states that their nails are thickened, elongated and painful. Patient states that it is aggravated by shoe gear. Onset is gradual. Patient denies being diabetic., Patient denies taking prescription blood thinners but does take a daily aspirin., Date last seen by Dr. Encarnacion was 02/2024. MA:mls Examination Category Sub-Category Detail Notes Category Not es Physical Examination Vascular: Dorsalis Pedis pulse noted at 1/4 right foot and 1/4 left foot and Posterior Tibial pulse noted at 1/4 right foot and 1/4 left foot, Capillary refill times noted to be less than three seconds x ten, Temperature gradient noted to be warm to cool to bilateral foot, pedal hair present to bilateral foot and no varicosities are noted Dermatologic: there are no open lesions, no signs of active clinical infection, no erythema noted, no ecchymoses, nails are elongated thickened and dystrophic with subungual debris x ten, hyperkeratotic tissue plantar first metatarsal head bilateral foot Musculoskeletal: there is pain to palpation onto nail plate x ten, no calf pain noted bilaterally, arch height noted at 2/5 non-weight bearing bilaterally, first metatarsophalangeal joint range of motion 30 deg non-weight bearing bilaterally, flexible fifth digit hammer toe deformity noted to bilateral foot reducible with kelikian push up test, pain to palpation sub first metatarsal head hyperkeratotic tissue bilateral foot Neurology: protective sensation intact to light touch bilateral digits one through five, vibratory sensation intact to first metatarsophalangeal joint bilaterally
--- OUTSIDE RECORDS SUMMARY | 2024-09-08 20:44 | XMS_ITS | Patient Health Record ---
Author Organization [facility] Address [address] [place], [place] [address] Care Team Providers Care Zinc Plater Name Role Phone CYNDY DUTTON Unavailable [phone] Casa Encarnacion Unavailable Unavailable PARVIN CORDOVA Unavailable [phone] Allergies No Known Allergies Reason For Referral No Information Medications Medication SIG (Take, Route, Frequency, Duration) Notes Start Date End Date Status chlordiazepoxide hydrochloride 5 MG Oral Capsule ORAL chlordiazepoxide hydrochloride 5 MG Oral CapsuleOriginal Medicationchlordiazepoxide hydrochloride 5 MG Oral Capsule *Reorder from [employer] for eRx and Interaction Alerts* 09/02/20 12 Active Metoprolol Tartrate 25 MG Oral Tablet ORAL metoprolol tartrate 25 MG Oral TabletOriginal Medicationmetoprolol tartrate 25 MG Oral Tablet *Reorder from [employer] for eRx and Interaction Alerts* 09/02/20 12 Active ciclopirox 80 MG/ML Topical Solution ciclopirox 80 MG/ML Topical SolutionOriginal Medicationciclopirox 80 MG/ML Topical Solution *Reorder from [employer] for eRx and Interaction Alerts* 12/17/19 15 Active Lisinopril 10 MG Oral Tablet ORAL lisinopril 10 MG Oral TabletOriginal Medicationlisinopril 10 MG Oral Tablet *Reorder from [employer] for eRx and Interaction Alerts* 09/02/20 12 Active Atenolol 25 MG Oral Tablet ORAL atenolol 25 MG Oral TabletOriginal Medicationatenolol 25 MG Oral Tablet *Reorder from [employer] for eRx and Interaction Alerts* 12/20/19 15 Active Immunizations Vaccine Route Administration Date Status Comme nts Influenza, high dose seasonal Unknown 06/13/2023 Admini stered Vital Signs Height-cm 162.56 cm 02/26/2024 Weight-kg 61.69 kg 02/26/2024 Height 64.00 in 02/26/2024 Weight 136 lbs 02/26/2024 BMI 23.34 kg/m2 02/26/2024 Encounters Encounter Location Date Provider Diagnosis [address] [id number] 10/16/2023 PARVIN CORDOVA Other hammer toe(s) (acquired), right foot M20.41 ; Tinea unguium B35.1 ; Other hammer toe(s) (acquired), left foot M20.42 ; Pain in right toe(s) M79.674 ; Pain in left toe(s) M79.675 ; Unspecified atherosclerosis of [place] arteries of extremities, bilateral legs I70.203 and Acquired keratosis [keratoderma] palmaris et plantaris L85.[address] [id number] 12/18/2023 PARVIN CORDOVA Other hammer toe(s) (acquired), right foot M20.41 ; Tinea unguium B35.1 ; Other hammer toe(s) (acquired), left foot M20.42 ; Pain in right toe(s) M79.674 ; Pain in left toe(s) M79.675 ; Unspecified atherosclerosis of [place] arteries of extremities, bilateral legs I70.203 and Acquired keratosis [keratoderma] palmaris et plantaris L85.[address] [id number] 02/26/2024 PARVIN CORDOVA Other hammer toe(s) (acquired), right foot M20.41 ; Tinea unguium B35.1 ; Other hammer toe(s) (acquired), left foot M20.42 ; Pain in right toe(s) M79.674 ; Pain in left toe(s) M79.675 ; Unspecified atherosclerosis of [place] arteries of extremities, bilateral legs I70.203 and Acquired keratosis [keratoderma] palmaris et plantaris L85.[address] [id number] 04/29/2024 PARVIN CORDOVA Other hammer toe(s) (acquired), right foot M20.41 ; Tinea unguium B35.1 ; Other hammer toe(s) (acquired), left foot M20.42 ; Pain in right toe(s) M79.674 ; Pain in left toe(s) M79.675 ; Unspecified atherosclerosis of [place] arteries of extremities, bilateral legs I70.203 and Acquired keratosis [keratoderma] palmaris et plantaris L85.[address] [id number] 07/01/2024 PARVIN CORDOVA Other hammer toe(s) (acquired), right foot M20.41 ; Tinea unguium B35.1 ; Other hammer toe(s) (acquired), left foot M20.42 ; Pain in right toe(s) M79.674 ; Pain in left toe(s) M79.675 ; Unspecified atherosclerosis of [place] arteries of extremities, bilateral legs I70.203 and Acquired keratosis [keratoderma] palmaris et plantaris L85.1 Assessments Encounter Date Diagnosis (ICD Code) Assessment Notes Treatment Notes Treatment Clinical Notes Section Notes 10/16/2023 Tinea unguium (ICD-10 - B35.1) Aseptic debridement [...] educated regarding both OTC and prescription treatments. 10/16/2023 Other hammer toe(s) (acquired), right foot (ICD-10 [...] were discussed, but conservative options were emphasized. 12/18/2023 Other hammer toe(s) (acquired), right foot (ICD-10 [...] were discussed, but conservative options were emphasized. 12/18/2023 Tinea unguium (ICD-10 - B35.1) Aseptic debridement [...] regarding both OTC and prescription treatments. 02/26/2024 Tinea unguium (ICD-10 - B35.1) Aseptic [...] prescription treatments. 02/26/2024 Other hammer toe(s) (acquired), right foot [...] were discussed, but conservative options were emphasized. 04/29/2024 Other hammer toe(s) (acquired), right foot (ICD-10 [...] were discussed, but conservative options were emphasized. 04/29/2024 Tinea unguium (ICD-10 - B35.1) Aseptic debridement [...] educated regarding both OTC and prescription treatments. 07/01/2024 Tinea unguium (ICD-10 - B35.1) Aseptic debridement [...] educated regarding both OTC and prescription treatments. 07/01/2024 Other hammer toe(s) (acquired), right foot (ICD-10 [...] were discussed, but conservative options were emphasized. 07/01/2024 Other hammer toe(s) (acquired), left foot (ICD-10 - M20.42) 04/29/2024 Other hammer toe(s) (acquired), left foot (ICD-10 - M20.42) 02/26/2024 Other hammer toe(s) (acquired), left foot (ICD-10 - M20.42) 12/18/2023 Other hammer toe(s) (acquired), left foot (ICD-10 - M20.42) 10/16/2023 Other hammer toe(s) (acquired), left foot (ICD-10 - M20.42) 10/16/2023 Pain in right toe(s) (ICD-10 - M79.674) 12/18/2023 Pain in right toe(s) (ICD-10 - M79.674) 02/26/2024 Pain in right toe(s) (ICD-10 - M79.674) 04/29/2024 Pain in right toe(s) (ICD-10 - M79.674) 07/01/2024 Pain in right toe(s) (ICD-10 - M79.674) 07/01/2024 Pain in left toe(s) (ICD-10 - M79.675) 04/29/2024 Pain in left toe(s) (ICD-10 - M79.675) 02/26/2024 Pain in left toe(s) (ICD-10 - M79.675) 12/18/2023 Pain in left toe(s) (ICD-10 - M79.675) 10/16/2023 Pain in left toe(s) (ICD-10 - M79.675) 10/16/2023 Unspecified atherosclerosis of [place] arteries of extremities, bilateral legs (ICD-10 - I70.203) Patient educated on risks and aggravating factors of PVD, including conservative treatment options such as a diet and exercise regimen to aid in slowing progression of vascular disease 02/26/2024 Unspecified atherosclerosis of [place] arteries of extremities, bilateral legs (ICD-10 - I70.203) Patient educated on risks and aggravating factors of PVD, including conservative treatment options such as a diet and exercise regimen to aid in slowing progression of vascular disease 12/18/2023 Unspecified atherosclerosis of [place] arteries of extremities, bilateral legs (ICD-10 - I70.203) Patient educated on risks and aggravating factors of PVD, including conservative treatment options such as a diet and exercise regimen to aid in slowing progression of vascular disease 07/01/2024 Unspecified atherosclerosis of [place] arteries of extremities, bilateral legs (ICD-10 - I70.203) Patient educated on risks and aggravating factors of PVD, including conservative treatment options such as a diet and exercise regimen to aid in slowing progression of vascular disease 04/29/2024 Unspecified atherosclerosis of [place] arteries of extremities, bilateral legs (ICD-10 - I70.203) Patient educated on risks and aggravating factors of PVD, including conservative treatment options such as a diet and exercise regimen to aid in slowing progression of vascular disease 04/29/2024 Acquired keratosis [keratoderma] palmaris et plantaris (ICD-10 [...] and no infection or drainage was noted. 07/01/2024 Acquired keratosis [keratoderma] palmaris et plantaris (ICD-10 [...] and no infection or drainage was noted. 12/18/2023 Acquired keratosis [keratoderma] palmaris et plantaris (ICD-10 [...] and no infection or drainage was noted. 02/26/2024 Acquired keratosis [keratoderma] palmaris et plantaris [...] and no infection or drainage was noted. 10/16/2023 Acquired keratosis [keratoderma] palmaris et plantaris (ICD-10 [...] or drainage was noted. Plan Of Treatment Next Appt Details Provider Name:CYNDY OMER, 10:40:00 AM, [address], [place], [id number], Insurance Providers Payer Name Payer Address Payer Phone Subscriber Number Group Number Insured Name Patient Relationship to Insured Coverage Start Date Coverage End Date Medicare Part B [address] [place] [phone] [id number] BRENDA WILSON Self - patient is the insured [address] [address] [id number] BRENDA WILSON Self - patient is the insured
--- OUTSIDE RECORDS SUMMARY | 2024-09-08 20:44 | XMS_ITS ---
Author Organization [facility] Address [address] [place], [place] [address] Care Team Providers Care Network Control Technician Name Role Phone CYNDY DUTTON Unavailable [phone] Casa Encarnacion Unavailable Unavailable PARVIN CORDOVA Unavailable [phone] REASON FOR VISIT *General care Medications Medication SIG (Take, Route, Frequency, Duration) Notes Start Date End Date Status Metoprolol Tartrate 25 MG Oral Tablet ORAL metoprolol tartrate 25 MG Oral TabletOriginal Medicationmetoprolol tartrate 25 MG Oral Tablet *Reorder from [employer] for eRx and Interaction Alerts* 09/02/20 12 Active Lisinopril 10 MG Oral Tablet ORAL lisinopril 10 MG Oral TabletOriginal Medicationlisinopril 10 MG Oral Tablet *Reorder from [employer] for eRx and Interaction Alerts* 09/02/20 12 Active Atenolol 25 MG Oral Tablet ORAL atenolol 25 MG Oral TabletOriginal Medicationatenolol 25 MG Oral Tablet *Reorder from [employer] for eRx and Interaction Alerts* 12/20/19 15 Active ciclopirox 80 MG/ML Topical Solution ciclopirox 80 MG/ML Topical SolutionOriginal Medicationciclopirox 80 MG/ML Topical Solution *Reorder from [employer] for eRx and Interaction Alerts* 12/17/19 15 Active chlordiazepoxide hydrochloride 5 MG Oral Capsule ORAL chlordiazepoxide hydrochloride 5 MG Oral CapsuleOriginal Medicationchlordiazepoxide hydrochloride 5 MG Oral Capsule *Reorder from [employer] for eRx and Interaction Alerts* 09/02/20 12 Active Encounters Encounter Location Date Provider Diagnosis [address] [id number] 04/29/2024 PARVIN CORDOVA Other hammer toe(s) (acquired), right foot M20.41 ; Tinea unguium B35.1 ; Other hammer toe(s) (acquired), left foot M20.42 ; Pain in right toe(s) M79.674 ; Pain in left toe(s) M79.675 ; Unspecified atherosclerosis of [place] arteries of extremities, bilateral legs I70.203 and Acquired keratosis [keratoderma] palmaris et plantaris L85.1 Assessments Encounter Date Diagnosis (ICD Code) Assessment Notes Treatment Notes Treatment Clinical Notes Section Notes 04/29/2024 Other hammer toe(s) (acquired), right foot [...] educated regarding both OTC and prescription treatments. 04/29/2024 Other hammer toe(s) (acquired), left foot (ICD-10 - M20.42) 04/29/2024 Pain in right toe(s) (ICD-10 - M79.674) 04/29/2024 Pain in left toe(s) (ICD-10 - M79.675) 04/29/2024 Unspecified atherosclerosis of [place] arteries of extremities, bilateral legs (ICD-10 - [...] OTC and prescription treatments. Unspecified atherosclerosis of [place] arteries of extremities, bilateral legs Patient educated [...] Provider Name:CYNDY OMER, 10:40:00 AM, [address] [facility], [place], [place], [id number], Progress Notes * BRENDA WILSON MDOB: (89 yo F)Acc No.[id number]:04/29/2024 Patient:?BRENDA WILSON Provider:?PARVIN CORDOVA :1935???Age:89 Y???Sex:Female D ate:04/29/2024 Address: [facility] Subjective: * Chief Complaints: * ???1. *General [...] Date last seen by Dr. Encarnacion was 03/2024., Initials [facility].? * ROS:?General / Constitutional:?Patient denies?weakness.?Respiratory:?Patient denies?chronic cough, shortness of breath, sputum production.?Cardiovascular:?Patient denies?chest pain, history of [place], irregular heartbeat.?Musculoskeletal:?Patient complains of?hammertoes, flat feet/ planus.?Peripheral Vascular:?Patient denies?blanching of skin, cold extremities, decreased sensation in extremities.?Skin:?Patient complains of?nail changes, fungal nails, calluses and corns.?Neurologic:?Patient denies?dizziness, gait abnormality, headache.? * Medical History:? * Medications:?Taking Atenolol 25 MG Oral Tablet ORAL , Notes to Pharmacist: atenolol 25 MG Oral TabletOriginal Medicationatenolol 25 MG Oral Tablet *Reorder from [facility] for eRx and Interaction Alerts*, Taking Lisinopril 10 MG Oral Tablet ORAL , Notes to Pharmacist: lisinopril 10 MG Oral TabletOriginal Medicationlisinopril 10 MG Oral Tablet *Reorder from [facility] for eRx and Interaction Alerts*, Taking Metoprolol Tartrate 25 MG Oral Tablet ORAL , Notes to Pharmacist: metoprolol tartrate 25 MG Oral TabletOriginal Medicationmetoprolol tartrate 25 MG Oral Tablet *Reorder from [facility] for eRx and Interaction Alerts*, Taking chlordiazepoxide hydrochloride 5 MG Oral Capsule ORAL , Notes to Pharmacist: chlordiazepoxide hydrochloride 5 MG Oral CapsuleOriginal Medicationchlordiazepoxide hydrochloride 5 MG Oral Capsule *Reorder from [facility] for eRx and Interaction Alerts*, Taking ciclopirox 80 MG/ML Topical Solution , Notes to Pharmacist: ciclopirox 80 MG/ML Topical SolutionOriginal Medicationciclopirox 80 MG/ML Topical Solution *Reorder from [facility] for eRx and Interaction Alerts* Objective: * Examination: ???Physical Examination: ???Vascular: Dorsalis Pedis [...] in left toe(s) - M79.675?6.?Unspecified atherosclerosis of [place] arteries of extremities, bilateral legs - I70.203?7.?Acquired [...] were emphasized. ?? 3.?Unspecified atheroscleros is of [place] arteries of extremities, bilateral legs? Notes: Patient [...] or drainage was noted. ?? * Procedure Codes:?19495 TRIM SKIN LESIONS, 2 TO 4, Modifiers: Q8 , 95182 DEBRIDE NAIL, 6 OR MORE, Modifiers: 59 , Q8 * Follow Up:?3 Months * Billing Information: * Visit Code:? * Procedure Codes:? 86223 TRIM SKIN LESIONS, 2 TO 4. Modifiers: Q8 46694 DEBRIDE NAIL, 6 OR MORE. Modifiers: 59, Q8 * Sign off status: Completed true * Provider:ZAKI CORDOVA Date:?04/29/2024 Generated for Jonnathan henao/Cathy/Armand on:?09/08/2024 08:44 PM GLOBAL SAFETY OFFICER History and Physical Notes * HPI (History [...] Date last seen by Dr. Encarnacion was 03/2024., Initials [facility] Examination Category Sub-Category Detail Notes Category Not [...]
--- OUTSIDE RECORDS SUMMARY | 2024-09-08 20:44 | XMS_ITS ---
Author Organization [facility] Address [address] [place], [place] [address] Care Team Providers Care Medical Sonographer Name Role Phone CYNDY DUTTON Unavailable [phone] Casa Encarnacion Unavailable Unavailable PARVIN CORDOVA Unavailable [phone] REASON FOR VISIT *General care Medications Medication SIG (Take, Route, Frequency, Duration) Notes Start Date End Date Status chlordiazepoxide hydrochloride 5 MG Oral Capsule ORAL chlordiazepoxide hydrochloride 5 MG Oral CapsuleOriginal Medicationchlordiazepoxide hydrochloride 5 MG Oral Capsule *Reorder from [employer] for eRx and Interaction Alerts* 09/02/20 12 Active Metoprolol Tartrate 25 MG Oral Tablet ORAL metoprolol tartrate 25 MG Oral TabletOriginal Medicationmetoprolol tartrate 25 MG Oral Tablet *Reorder from [employer] for eRx and Interaction Alerts* 09/02/20 12 Active ciclopirox 80 MG/ML Topical Solution ciclopirox 80 MG/ML Topical SolutionOriginal Medicationciclopirox 80 MG/ML Topical Solution *Reorder from [employer] for eRx and Interaction Alerts* 12/17/19 15 Active Lisinopril 10 MG Oral Tablet ORAL lisinopril 10 MG Oral TabletOriginal Medicationlisinopril 10 MG Oral Tablet *Reorder from [employer] for eRx and Interaction Alerts* 09/02/20 12 Active Atenolol 25 MG Oral Tablet ORAL atenolol 25 MG Oral TabletOriginal Medicationatenolol 25 MG Oral Tablet *Reorder from [employer] for eRx and Interaction Alerts* 12/20/19 15 Active Encounters Encounter Location Date Provider Diagnosis [address] [id number] 07/01/2024 PARVIN CORDOVA Other hammer toe(s) (acquired), right foot M20.41 ; Tinea unguium B35.1 ; Other hammer toe(s) (acquired), left foot M20.42 ; Pain in right toe(s) M79.674 ; Pain in left toe(s) M79.675 ; Unspecified atherosclerosis of [place] arteries of extremities, bilateral legs I70.203 and Acquired keratosis [keratoderma] palmaris et plantaris L85.1 Assessments Encounter Date Diagnosis (ICD Code) Assessment Notes Treatment Notes Treatment Clinical Notes Section Notes 07/01/2024 Other hammer toe(s) (acquired), right foot [...] discussed, but conservative options were emphasized. 07/01/2024 Tinea unguium (ICD-10 - B35.1) Aseptic [...] prescription treatments. 07/01/2024 Other hammer toe(s) (acquired), left foot (ICD-10 - M20.42) 07/01/2024 Pain in right toe(s) (ICD-10 - M79.674) 07/01/2024 Pain in left toe(s) (ICD-10 - M79.675) 07/01/2024 Unspecified atherosclerosis of [place] arteries of extremities, bilateral legs (ICD-10 - I70.203) Patient educated on risks and aggravating factors of PVD, including conservative treatment options such as a diet and exercise regimen to aid in slowing progression of vascular disease 07/01/2024 Acquired keratosis [keratoderma] palmaris et plantaris [...] OTC and prescription treatments. Unspecified atherosclerosis of [place] arteries of extremities, bilateral legs Patient educated [...] Provider Name:CYNDY OMER, 10:40:00 AM, [address] [facility], [place], [place], [id number], Progress Notes * BRENDA WILSON MDOB: (89 yo F)Acc No.[id number]:07/01/2024 Patient:?BRENDA WILSON Provider:?PARVIN CORDOVA :1935???Age:89 Y???Sex:Female D ate:07/01/2024 Address: [id number] Subjective: * Chief Complaints: * ???1. *General [...] Date last seen by Dr. Encarnacion was 01/2024., Initials [facility].? * ROS:?General / Constitutional:?Patient denies?weakness.?Respiratory:?Patient denies?chronic cough, shortness of breath, sputum production.?Cardiovascular:?Patient denies?chest pain, history of [place], irregular heartbeat.?Musculoskeletal:?Patient complains of?hammertoes, flat feet/ planus.?Peripheral Vascular:?Patient denies?blanching of skin, cold extremities, decreased sensation in extremities.?Skin:?Patient complains of?nail changes, fungal nails, calluses and corns.?Neurologic:?Patient denies?dizziness, gait abnormality, headache.? * Medical History:? * Medications:?Taking Atenolol 25 MG Oral Tablet ORAL , Notes to Pharmacist: atenolol 25 MG Oral TabletOriginal Medicationatenolol 25 MG Oral Tablet *Reorder from [facility] for eRx and Interaction Alerts*, Taking Lisinopril 10 MG Oral Tablet ORAL , Notes to Pharmacist: lisinopril 10 MG Oral TabletOriginal Medicationlisinopril 10 MG Oral Tablet *Reorder from [facility] for eRx and Interaction Alerts*, Taking Metoprolol Tartrate 25 MG Oral Tablet ORAL , Notes to Pharmacist: metoprolol tartrate 25 MG Oral TabletOriginal Medicationmetoprolol tartrate 25 MG Oral Tablet *Reorder from [facility] for eRx and Interaction Alerts*, Taking chlordiazepoxide hydrochloride 5 MG Oral Capsule ORAL , Notes to Pharmacist: chlordiazepoxide hydrochloride 5 MG Oral CapsuleOriginal Medicationchlordiazepoxide hydrochloride 5 MG Oral Capsule *Reorder from [facility] for eRx and Interaction Alerts*, Taking ciclopirox 80 MG/ML Topical Solution , Notes to Pharmacist: ciclopirox 80 MG/ML Topical SolutionOriginal Medicationciclopirox 80 MG/ML Topical Solution *Reorder from [facility] for eRx and Interaction Alerts* Objective: * Vitals:? * Examination: ???Physical Examination: ???Vascular: Dorsalis Pedis [...] * Assessment: 1.?Tinea unguium - B35.1 (Pr imary)???2.?Other hammer toe(s) (acquired), right foot - M20.41???3.?Other hammer toe(s) (acquired), left foot - M20.42???4.?Pain in right toe(s) - M79.674???5.?Pain in left toe(s) - M79.675???6.?Unspecified atherosclerosis of [place] arteries of extremities, bilateral legs - I70.203???7.?Acquired keratosis [keratoderma] palmaris et plantaris - L85.1??? Plan: * Treatment: 2.?Other hammer toe(s) (acqu [...] were emphasized. ?? 3.?Unspecified atheroscleros is of [place] arteries of extremities, bilateral legs? Notes: Patient [...] or drainage was noted. ?? * Procedure Codes:?73384 TRIM SKIN LESIONS, 2 TO 4, Modifiers: Q8 , 06987 DEBRIDE NAIL, 6 OR MORE, Modifiers: 59 , Q8 * Follow Up:?3 Months * Billing Information: * Visit Code:? * Procedure Codes:? 37086 TRIM SKIN LESIONS, 2 TO 4. Modifiers: Q8 50502 DEBRIDE NAIL, 6 OR MORE. Modifiers: 59, Q8 * TH OCCUPATIONS TEACHER Sign off status: Completed true * Provider:ZAKI CORDOVA Date:?07/01/2024 Generated for Jonnathan henao/Cathy/Armand on:?09/08/2024 08:44 PM HEALTH OCCUPATIONS TEACHER History and Physical Notes * HPI (History [...] Date last seen by Dr. Encarnacion was 01/2024., Initials [facility] Examination Category Sub-Category Detail Notes [...]
--- OUTSIDE RECORDS SUMMARY | 2024-09-08 20:45 | XMS_ITS | Encounter Summary ---
Author Organization [facility] Address [address] [place] [address] Care Team Providers Care Tobacco Flavorer Name Role Phone Casa Encarnacion MD Primary Care Provider + Reason for Visit * Reason Onset Date Comments Vaginal Pain 09/20/2015 Encounter Details Date Type Department Care Team (Late st Contact Info) Description 09/20/2015 Telephone [facility] WOOD SCIENCE PROFESSOR - [facility] [address] [facility], [address] [place] [address] Demetrice Márquez RN Vaginal Pain Social History Tobacco Use Types Packs/Day [...] encounter Miscellaneous Notes * Telephone Encounter - Demetrice Cabral RN - 09/20/2015 11:31 AM CST Pt made aware, order placed. Y CEMENTER * Telephone Encounter - Didi Roberto MD - 09/20/2015 11:27 AM CST We can give her one dose, please. Y CEMENTER * Telephone Encounter - Demetrice Cabral RN - 09/20/2015 9:19 AM CST Pt called asking for Diflucan for vaginal burning. States she does have a small amt of whitish discharge as well. Y CEMENTER documented in this encounter Plan of Treatment Not on file documented as of this encounter Visit Diagnoses Diagnosis Yeast infection- Primary Other and unspecified mycoses documented in this encounter Care Teams Tobacco Flavorer Relationship Specialty Start Date End Date Casa Encarnacion MD [address] [place] [phone] PCP - General Internal Medicine 10/12/14 documented as of this encounter
--- OUTSIDE RECORDS SUMMARY | 2024-09-08 20:45 | XMS_ITS | Encounter Summary ---
Author Organization [facility] Address [address] [place] [address] Care Team Providers Care Ham Rolling Machine Operator Name Role Phone Casa Encarnacion MD Primary Care Provider + Encounter Details Date Type Department Care Team (Late st Contact Info) Description 05/29/2015 Orders Only [facility] ORDNANCE ARTIFICER HELPER - [facility] [address], [address] [place] [address] Didi Roberto MD [address] [place] [address] Vulvitis Social History Tobacco Use Types Packs/Day Years [...] Procedure Name Priority Date/Time Associated Diagnosis Comments MISCELLANEOUS LAB TEST Routine 5 10:00 AM CDT Vulvitis documented in this encounter Results * MISCELLANEOUS LAB TEST (05/24/2015 10:00 AM CDT) MISCELLANEOUS LAB TEST NON [facility] SPECIMEN TYPE NON [facility] MISCELLANEOUS LAB TEST NON [facility] Specimen of unknown material (specimen) 05/24/2015 10:00 AM CDT Didi Roberto MD CHEMISTRY ORDERABLES NON [facility] documented in this encounter Visit Diagnoses Diagnosis Vulvitis Vaginitis and vulvovaginitis, unspecified documented in this encounter Care Teams Ham Rolling Machine Operator Relationship Specialty Start Date End Date Casa Encarnacion MD [address] [place] [phone] PCP - General Internal Medicine 10/12/14 documented as of this encounter
--- OUTSIDE RECORDS SUMMARY | 2024-09-08 20:45 | XMS_ITS | Encounter Summary ---
Author Organization [facility] Address [address] [place] [address] Care Team Providers Care Sanitation Supervisor Name Role Phone Casa Encarnacion MD Primary Care Provider + Encounter Details Date Type Department Care Team (Late st Contact Info) Description 11/08/2014 Abstract [facility] CARBIDE DIE MAKER - [facility] [address] [facility], [address] [place] [phone] Didi Roberto MD [address] [place] [phone] Social History Tobacco Use Types Packs/Day Years [...] on filedocumented in this encounter Care Teams Sanitation Supervisor Relationship Specialty Start Date End Date Casa Encarnacion MD [address] [place] [phone] PCP - General Internal Medicine 10/12/14 documented as of this encounter
--- OUTSIDE RECORDS SUMMARY | 2024-09-08 20:45 | XMS_ITS | Encounter Summary ---
Author Organization [facility] Address [address] [place] [address] Care Team Providers Care Program Admin Name Role Phone Casa Encarnacion MD Primary Care Provider + Reason for Visit * Reason Onset Date Comments Results 11/14/2015 culture neg Encounter Details Date Type Department Care Team (Late st Contact Info) Description 11/14/2015 Telephone [facility] JAVA DEVELOPMENT MANAGER - [facility] [address] [facility], [address] [place] [address] Didi Estevez MD [address] [place] [address] Results (culture neg) Social History Tobacco Use Types Packs/Day Years [...] encounter Miscellaneous Notes * Telephone Encounter - Lydia Escamilla RN - 11/14/2015 8:03 AM CST ----- Message from Didi Roberto MD sent at 11/13/2015 11:17 PM COMMUNITY SUPPORT ASSOCIATE ----- Please let pt know that she tested neg for yeast so far. Culture will continue to be held for a fewmore weeks. If anything changes, then we will let her know . In the mean time, I do not see any useto go with scheduled Diflucan. She can take what she has, and then may call if needed. She can continue with the rest of the recommendations. LMOR stating the above information UNITY SUPPORT ASSOCIATE documented in this encounter Plan of Treatment Not on file documented as of this encounter Visit Diagnoses Not on filedocumented in this encounter Care Teams Program Admin Relationship Specialty Start Date End Date Casa Encarnacion MD [address] [place] [phone] PCP - General Internal Medicine 10/12/14 documented as of this encounter
--- OUTSIDE RECORDS SUMMARY | 2024-09-08 20:45 | XMS_ITS | Encounter Summary ---
Author Organization [facility] Address [address] [place] [address] Care Team Providers Care Locator Name Role Phone Casa Encarnacion MD Primary Care Provider + Reason for Visit * Reason Onset Date Comments Medication Question 10/10/2015 Encounter Details Date Type Department Care Team (Late st Contact Info) Description 10/10/2015 Telephone [facility] STEAM BOX HAND - [facility] [address] [facility], [address] [place] [address] Didi Roberto MD [address] [place] [address] Medication Question Social History Tobacco Use Types Packs/Day [...] Telephone Encounter - Lydia Escamilla RN - 10/10/2015 4:55 PM CST Patient advised. Diflucan sent NEERING TECHNICAL WRITER * Telephone Encounter - Didi Roberto MD - 10/10/2015 4:33 PM ENGINEERING TECHNICAL WRITER If it is external irritation, then I can give her one Diflucan 150. If she is not better, I do needto see her. Give it about 3-5 days to work, though. NEERING TECHNICAL WRITER * Telephone Encounter - Lydia Escamilla RN - 10/10/2015 3:00 PM CST Spoke with patient earlier today, she was wanting Diflucan for burning upon urination. When I called to tell her Dr. Lozano advises she see her PCP she then stated, that she should have told me that the burning is when the urine touches the surrounding skin. We discussed the use of crisco and she agreed to try that for a couple days. She just called back and states the crisco is not helping. I advised that Dr. Lozano may need to see her and reiterated to her that the Diflucan will not treat the symptoms she is having. NEERING TECHNICAL WRITER documented in this encounter Plan of Treatment Not on file documented as of this encounter Visit Diagnoses Diagnosis Yeast infection- Primary Other and unspecified mycoses documented in this encounter Care Teams Locator Relationship Specialty Start Date End Date Casa Encarnacion MD [address] [place] [phone] PCP - General Internal Medicine 10/12/14 documented as of this encounter
--- OUTSIDE RECORDS SUMMARY | 2024-09-08 20:45 | XMS_ITS | Encounter Summary ---
Author Organization [facility] Address [address] [place] [address] Care Team Providers Care Customer Support Agent Name Role Phone Casa Encarnacion MD Primary Care Provider + Reason for Visit * Reason Onset Date Comments Results 12/05/2014 Encounter Details Date Type Department Care Team (Late st Contact Info) Description 12/05/2014 Telephone [facility] TOOL MACHINE SET UP OPERATOR - [facility] [address] [facility], [address] [place] [address] Didi Roberto MD [address] [place] [address] Results Social History Tobacco Use Types Packs/Day [...] Miscellaneous Notes * Telephone Encounter - Marilin Shah RN - 12/05/2014 11:32 AM CDT Pt notified and instructions given. Diflucan rx sent to pharmacy. * Telephone Encounter - Marilin Shah RN - 12/05/2014 11:26 AM CDT ----- Message from Didi Roberto MD sent at 12/05/2014 9:31 AM CDT ----- Please let pt know she did test positive for yeast. We will do Diflucan 200 mg po weekly for the next 6 weeks. Needs to have her liver function tested with her PCP and send me results. She is to continue with all the other recommendations, though. Thanks! documented in this encounter Plan of Treatment Not on file documented as of this encounter Visit Diagnoses Not on filedocumented in this encounter Care Teams Customer Support Agent Relationship Specialty Start Date End Date Casa Encarnacion MD [address] [place] [phone] PCP - General Internal Medicine 10/12/14 documented as of this encounter
--- OUTSIDE RECORDS SUMMARY | 2024-09-08 20:45 | XMS_ITS | Encounter Summary ---
Author Organization [employer] Address [address] [place] [address] Care Team Providers Care Tractor Mechanic Apprentice Name Role Phone Casa Encarnacion MD Primary Care Provider + Encounter Details Date Type Department Care Team (Latest Contact Info) Description 10/12/2014 7:23 PM LEAD DENTAL ASSISTANT - 10/12/2014 11:59 PM LEAD DENTAL ASSISTANT Hospital Encounter [facility] Laboratory Support Services [facility] [address] [place] [address] [place] [address] Ryan Marks MD NO ADDRESS ON FILE Discharge Disposition: Home or Self Care Social History Tobacco Use Types Packs/Day Years Used Date Smoking Tobacco: Never Alcohol Use Standard Drinks/Week Comments No 0 (1 standard drink = 0.6 oz pur e alcohol) Sex and Gender Information Value Date Recorded Sex Assigned at Not on file Gender Identity Not on file Sexual Orientation Not on file documented as of this encounter Medications at Time of Discharge Medication Sig Dispensed Refills Start Date End Date chlordiazePOXIDE (LIBRIUM) 5 mg capsule 10/04/2014 mirtazapine (REMERON) 30 mg tablet 09/30/2014 PSYLLIUM HUSK (METAMUCIL ORAL) Take by mouth. atenolol (TENORMIN) 25 mg tablet Take 25 mg by mouth daily. documented as of this encounter Plan of Treatment Not on file documented as of this encounter Procedures Procedure Name Priority Date/Time Associated Diagnosis Comments CERV/VAG CYTO SCREEN PAP RLFX HPV Routine 10/12/2014 7:25 PM LEAD DENTAL ASSISTANT Special screening for malignant neoplasms, vagina Special screening examination for human papillomavirus (HPV) documented in this encounter Results * CERV/VAG CYTOPATH, THIN PREP IMAGR RFLX HPV (CP) (10/12/2014 7:25 PM LEAD DENTAL ASSISTANT) PAP INTERP Negative for intraepithelial lesion or malignancy. [facility] Comment: Performed by [facility], [address] [place] [address] Turntable Worker Pap Comment This Pap test has been evaluated with computer assisted technology. [facility] ADEQUACY: SATISFACTORY FOR EVALUATION [facility] CLINICAL INFORMATION Information not provided [facility] SOURCE Vaginal cuff [facility] SERVICES [facility] PREV PAP: INFORMATION NOT PROVIDED [facility] CYTOTECHNOLOGI ST: MLO, CT(ASCP) [facility] SERVICES [facility] LAST MENSTRUAL PERIOD INFORMATION NOT PROVIDED [facility] PREV BX: INFORMATION NOT PROVIDED [facility] Vaginal 10/12/2014 7:25 PM LEAD DENTAL ASSISTANT 10/12/2014 9:59 PM LEAD DENTAL ASSISTANT Comment:VAGINAL Narrative [facility] - 10/19/2014 8:57 AM LEAD DENTAL ASSISTANT vgcuff Ryan Marks MD PATHOLOGY/CYTOLOG Y ORDERABLES [facility] [employer] [facility] CLIA# [id number] [address] [place] [address] documented in this encounter Visit Diagnoses Diagnosis Special screening for malignant neoplasms, vagina- Primary Special screening examination for human papillomavirus (HPV) documented in this encounter Care Teams Tractor Mechanic Apprentice Relationship Specialty Start Date End Date Casa Encarnacion MD [address] [place] [phone] PCP - General Internal Medicine 10/12/14 documented as of this encounter
--- OUTSIDE RECORDS SUMMARY | 2024-09-08 20:45 | XMS_ITS | Encounter Summary ---
Author Organization [facility] Address [address] [place] [address] Care Team Providers Care Hand Upper And Bottom Lacer Name Role Phone Casa Encarnacion MD Primary Care Provider + Reason for Visit * Reason Comments Follow Up vaginal burning Encounter Details Date Type Department Care Team (Late st Contact Info) Description 11/08/2015 3:30 PM FOIL CUTTER Office Visit [facility] STATE ASSESSED PROPERTIES DIRECTOR - [facility] [address] [facility], [address] [place] [address] Didi Dominguez MD [address] [place] [phone] Acute vulvitis (Primary Dx); Yeast infection of the vagina Social History Tobacco Use Types Packs/Day Years [...] Comments Blood Pressure 140/82 11/08/2015 3:33 PM FOIL CUTTER Pulse - - Temperature - - Respiratory Rate - - Oxygen Saturation - - Inhaled Oxygen Concentration - - Weight 59 kg (130 lb) 11/08/2015 3:33 PM FOIL CUTTER Height 167.6 cm (5' 6 ) 11/08/2015 3:33 PM FOIL CUTTER Body Mass Index 20.98 11/08/2015 3:33 PM FOIL CUTTER documented in this encounter Progress Notes * Didi Roberto MD - 11/09/2015 9:16 PM CST OBGYN FOLLOW UP VISIT Chief Complaint Patient presents with ??? Follow Up vaginal burning HPI: Luanne Gotti is a 80 y.o. who presents for follow up. She reports: has been doing ok. Then started having issues again. Thought maybe a UTI but her PCP checked her, and it was not. Got Diflucan from him and felt a bit better. Got another Diflucan 2 wks ago. Currently, feels more or less ok, with occasional irritation. Denies vag discharge. Denies dysuria. Using her compounded ointment and Crisco, as well as Estrace. Review of Systems -see above for pertinent positives Otherwise: negative No Known Allergies Current Outpatient Prescriptions on File Prior to Visit Medication Sig Dispense Refill ??? estradiol (ESTRACE) 0.01% (0.1 mg/g) vaginal cream Insert vaginally daily. ??? chlordiazePOXIDE (LIBRIUM) 5 mg capsule ??? mirtazapine (REMERON) 30 mg tablet ??? PSYLLIUM HUSK (METAMUCIL ORAL) Take by mouth. ??? atenolol (TENORMIN) 25 mg tablet Take 25 mg by mouth daily. No current facility-administered medications on file prior to visit. Reviewed and updated PMH, PSH, OBGYN hx, Fam Hx, and Soc Hx Physical exam: BP 140/82 mmHg Ht 5' 6 (1.676 m) Wt 58.968 kg (130 lb) BMI 20.99 kg/m2 ? No General: no acute distress, pleasant CF Pelvic exam: Labia majora: atrophic, no lesions Labia minora: atrophic, no lesions but somewhat erythematous and tender with q- tip touch Clitoris: normal, atrophic tissue Introitus: somewhat tender with q-tip Bartholins Glands: mild erythema, no lesions Paraurethral Glands: as above Urethra, bladder, urethral meatus: normal Vagina: atrophic tissue, scant white discharge present, somewhat adherent to the lawrence Previously, gen path positive for favian spp Assessment and Plan: ICD-9-CM ICD-10-CM 1. Acute vulvitis 616.10 N76.2 MISCELLANEOUS LAB TEST FUNGUS CULTURE, OTHER nystatin (MYCOSTATIN) 100,000 unit/gram Ointment fluconazole (DIFLUCAN) 150 mg tablet FUNGUS CULTURE, OTHER 2. Yeast infection of the vagina 112.1 B37.3 MISCELLANEOUS LAB TEST FUNGUS CULTURE, OTHER nystatin (MYCOSTATIN) 100,000 unit/gram Ointment fluconazole (DIFLUCAN) 150 mg tablet FUNGUS CULTURE, OTHER Suspect recurrent yeast vaginitis. Will add nystatin bid for the next few weeks. Ok to hold off on the compounded ointment for now. Diflucan 150 mg now and repeat in 4 days. Will run another Gen pathpanel, and will follow up on this. If positive for yeast again, will institute another 6 months of bimonthly or weekly (depending on symptoms) diflucan. Will have to monitor liver. Total time of visit: 15 min Total time counseled: 10 min Counseled pt/pt's family on: as stated above. Didi Roberto MD CUTTER documented in this encounter Plan of Treatment Not on file documented as of this encounter Procedures Procedure Name Priority Date/Time Associated Diagnosis Comments FUNGUS CULTURE, OTHER Routine 11/08/2015 4:26 PM FOIL CUTTER Acute vulvitis Yeast infection of the vagina documented in this encounter Results * FUNGUS CULTURE, OTHER (11/08/2015 4:26 PM FOIL CUTTER) CULTURE No fungus isolated. 12/05/2015 9:03 AM CDT [facility] Open Places [facility] Genital SPECIMEN FROM VAGINA / Unknown Collection / Unknown 11/08/2015 4:26 PM FOIL CUTTER 11/08/2015 9:09 PM FOIL CUTTER Didi Roberto MD MICROBIOLO GY - GENERAL ORDERABLES [facility] Open [id number] [address] [place] [address] * MISCELLANEOUS LAB TEST (11/08/2015 10:00 AM FOIL CUTTER) Pathologist [facility] MISCELLANEOUS LAB TEST NON [facility] SPECIMEN TYPE NON [facility] MISCELLANEOUS LAB TEST NON [facility] Specimen of unknown material (specimen) 11/08/2015 10:00 AM FOIL CUTTER Didi Roberto MD CHEMISTRY ORDERABLES NON [facility] documented in this encounter Visit Diagnoses Diagnosis Acute vulvitis- Primary Vaginitis and vulvovaginitis, unspecified Yeast infection of the vagina Candidiasis of vulva and vagina documented in this encounter Care Teams Hand Upper And Bottom Lacer Relationship Specialty Start Date End Date Casa Encarnacion MD [address] [place] [phone] PCP - General Internal Medicine 10/12/14 documented as of this encounter
--- OUTSIDE RECORDS SUMMARY | 2024-09-08 20:45 | XMS_ITS | Encounter Summary ---
Author Organization [facility] Address [address] [place] [address] Care Team Providers Care Flight Steward Name Role Phone Casa Encarnacion MD Primary Care Provider + Reason for Visit * Reason Onset Date Comments Urinary Pain 10/10/2015 Encounter Details Date Type Department Care Team (Late st Contact Info) Description 10/10/2015 Telephone [facility] COMMUNICATIONS OFFICER - [facility] [address] [facility], [address] [place] [address] Didi Roberto MD [address] [place] [address] Urinary Pain Social History Tobacco Use Types Packs/Day [...] Encounter - Lydia Escamilla RN - 10/10/2015 12:03 PM CST Called patient. She now states that she feels the burning more on the outside. We discussed use of crisco which she has used before. She will use it for a couple of days and call back if symptoms persist. CANVAS MAKER INSTALLER * Telephone Encounter - Didi Roberto MD - 10/10/2015 11:23 AM CST She is taking a lot of Diflucan. If she is having urinary symptoms, she should be evaluated for possible UTI. She can do that with her PCP. Thanks! CANVAS MAKER INSTALLER * Telephone Encounter - Lydia Escamilla RN - 10/10/2015 10:45 AM CST Patient states she took 1 Diflucan on Sep 20 and her urinary symptoms did subside. Today she statesshe is having burning upon urination again. Please advise. TY CANVAS MAKER INSTALLER documented in this encounter Plan of Treatment Not on file documented as of this encounter Visit Diagnoses Not on filedocumented in this encounter Care Teams Flight Steward Relationship Specialty Start Date End Date Casa Encarnacion MD [address] [place] [phone] PCP - General Internal Medicine 10/12/14 documented as of this encounter
--- OUTSIDE RECORDS SUMMARY | 2024-09-08 20:45 | XMS_ITS | Encounter Summary ---
Author Organization [facility] Address [address] [place] [address] Care Team Providers Care Customer Sales Consultant Name Role Phone Casa Encarnacion MD Primary Care Provider + Reason for Visit * Reason Onset Date Comments Other 11/04/2014 need medication called in Encounter Details Date Type Department Care Team (Late st Contact Info) Description 11/04/2014 Telephone [facility] HORSE BREEDER - [facility] [address] [facility], [address] [place] [address] Didi Estevez MD [address] [place] [address] [address] [place] [address] Other (need medication called in) Social History Tobacco Use Types Packs/Day Years [...] Telephone Encounter - Marilin Shah RN - 11/04/2014 12:11 PM CST Patient notified. OUT HELPER * Telephone Encounter - Didi Roberto MD - 11/04/2014 11:25 AM CST Yes, I can send that it to her pharmacy. I was not sure if she said she would try it or not. I willsend it in now. Thanks! OUT HELPER * Telephone Encounter - Marilin Shah RN - 11/04/2014 11:04 AM CST Compounded ointment rx called to [facility]. Patient requesting a prescription for Atarax?pls advise. thx. OUT HELPER * Telephone Encounter - Didi Roberto MD - 11/04/2014 10:34 AM CST Please call in to [facility] [phone] the following compounded ointment for pt. She wants it mailed to her. 3% Gabapentin, 2% ketamine, 2% baclofen ointment. Apply to affected area bid, pea size amount. Dispense: 30 g, refill 1 Thanks! OUT HELPER documented in this encounter Plan of Treatment Not on file documented as of this encounter Visit Diagnoses Diagnosis Vulvar itching- Primary Pruritus of genital organs documented in this encounter Care Teams Customer Sales Consultant Relationship Specialty Start Date End Date Casa Encarnacion MD [address] [place] [phone] PCP - General Internal Medicine 10/12/14 documented as of this encounter
--- OUTSIDE RECORDS SUMMARY | 2024-09-08 20:45 | XMS_ITS | Encounter Summary ---
Author Organization [facility] Address [address] [place] [address] Care Team Providers Care Radio Despatcher Name Role Phone Casa Encarnacion MD Primary Care Provider + Reason for Visit * Reason Onset Date Comments Vaginal Itching 08/28/2015 Encounter Details Date Type Department Care Team (Late st Contact Info) Description 08/28/2015 Telephone [facility] CARGO AGENT - [facility] [address] [facility], [address] [place] [address] Demetrice Márquez RN Vaginal Itching Social History Tobacco Use Types Packs/Day Years [...] Telephone Encounter - Demetrice Cabral RN - 08/28/2015 5:03 PM CST yes ONE SOLDER STRIPPER * Telephone Encounter - Didi Roberto MD - 08/28/2015 4:59 PM ENTHONE SOLDER STRIPPER Ok, so, did she just call to let us know that she got diflucan from her PCP? ONE SOLDER STRIPPER * Telephone Encounter - Demetrice Cabral RN - 08/28/2015 3:20 PM CST Pt was able to get a script from her PCP. ONE SOLDER STRIPPER * Telephone Encounter - Demetrice Cabral RN - 08/28/2015 3:08 PM CST Pt called stating she has been following vulvar guidelines but is having itching/burning again. States Diflucan has helped in the past and is asking for one now. No discharge. ONE SOLDER STRIPPER documented in this encounter Plan of Treatment Not on file documented as of this encounter Visit Diagnoses Not on filedocumented in this encounter Care Teams Radio Despatcher Relationship Specialty Start Date End Date Casa Encarnacion MD [address] [place] [phone] PCP - General Internal Medicine 10/12/14 documented as of this encounter
--- OUTSIDE RECORDS SUMMARY | 2024-09-08 20:45 | XMS_ITS | Encounter Summary ---
Author Organization [facility] Address [address] [place] [address] Care Team Providers Care Audio Visual Arts Director Name Role Phone Casa Encarnacion MD Primary Care Provider + Reason for Visit * Reason Onset Date Comments Question 05/22/2015 Encounter Details Date Type Department Care Team (Late st Contact Info) Description 05/22/2015 Telephone [facility] DOLLY OPERATOR - [facility] [address] [facility], [address] [place] [address] Demetrice Márquez, RN Question Social History Tobacco Use Types Packs/Day [...] Telephone Encounter - Demetrice Cabral RN - 05/22/2015 10:59 AM CDT Pt called asking if she should stop using her creams before her appt. Informed yes. documented in this encounter Plan of Treatment Not on file documented as of this encounter Visit Diagnoses Not on filedocumented in this encounter Care Teams Audio Visual Arts Director Relationship Specialty Start Date End Date Casa Encarnacion MD [address] [place] [phone] PCP - General Internal Medicine 10/12/14 documented as of this encounter
--- OUTSIDE RECORDS SUMMARY | 2024-09-08 20:45 | XMS_ITS | Encounter Summary ---
Author Organization [facility] Address [address] [place] [address] Care Team Providers Care Senior Qa Automation Engineer Name Role Phone Casa Encarnacion MD Primary Care Provider + Reason for Visit * Reason Comments Follow Up vulvar burning Encounter Details Date Type Department Care Team (Late st Contact Info) Description 11/30/2014 1:45 PM CDT Office Visit [facility] PIN MACHINE OPERATOR - [facility] [address] [facility], [address] [place] [address] Didi Dominguez MD [address] [place] [address] [address] [place] [address] Vulvar burning (Primary Dx) Social History Tobacco Use Types [...] Sign Reading Time Taken Comments Blood Pressure 138/78 11/30/2014 1:44 PM CDT Pulse - - Temperature - - Respiratory Rate - - Oxygen Saturation - - Inhaled Oxygen Concentration - - Weight 56.2 kg (124 lb) 11/30/2014 1:44 PM CDT Height 167.6 cm (5' 6 ) 11/30/2014 1:44 PM CDT Body Mass Index 20.01 11/30/2014 1:44 PM CDT documented in this encounter Progress Notes * Didi Roberto MD - 12/01/2014 11:58 PM CDT Chief Complaint Patient presents with ??? Follow Up vulvar burning Subjective Luanne Gotti is here for follow up. Overall, she is doing better. She has no more itching. Had a UTI that was treated with abx and thought she was coming down with a yeast infection. Did not take Diflucan. Still has vulvar burning and Crisco helps with this. Using the compounded ointment. Followingvulvar care guidelines. ROS: had bladder issues involving dysuria/frequency, no rash, no changes in BM Objective BP 138/78 Ht 5' 6 (1.676 m) Wt 124 lb (56.246 kg) BMI 20.02 kg/m2 ? No General: NAD, pleasant female Pelvic exam: External genitalia: well-moisturized, no erythema Urethra, bladder, urethral meatus: atrophic Vagina: atrophic tissue On q-tip exam, there is no burning or tenderness or itching involving the labia or clitoris. Introitus--there is generalized burning sensation noted. Pt demonstrated how she applies the ointment. She is not applying it to the introitus. ASSESSMENT: Encounter Diagnosis Name Primary? Vulvar burning Yes PLAN: Orders Placed This Encounter ??? BACTERIAL VAGINOSIS STAIN Counseled pt again regarding Ddx and treatment plan. Need to rule out yeast infection. Sent Gen path today. Instructed pt and demonstrated how to properly apply the ointment and Crisco. Will continue No need to take zyrtec at this point since the itching resolved. Follow up in 3 months Total time of visit: 15 min Total time counseled: 10 min Counseled pt/pt's family on: as stated above. Ddii Roberto MD documented in this encounter Plan of Treatment Not on file documented as of this encounter Results * (ABNORMAL) BACTERIAL VAGINOSIS STAIN (11/30/2014) ADDENDUM REPORT NON [facility] ADDENDUM MICRO REPORT NON [facility] REVISED FINAL REPORT NON [facility] REVISED FINAL MICRO REPORT NON [facility] FINAL REPORT NON [facility] FINAL REPORT NON [facility] FINAL REPORT NON [facility] FINAL MICRO REPORT NON [facility] PRELIMINARY REPORT NON [facility] PRELIMINARY MICRO REPORT NON [facility] GRAM STAIN NON [facility] GRAM STAIN NON [facility] GRAM STAIN NON [facility] Specimen from genital system (specimen) (Vaginal) 11/30/2014 Didi Roberto MD MICROBIOLO GY - GENERAL ORDERABLES Performing Organization Address City/State/[facility] Co de Phone Number NON [facility] documented in this encounter Visit Diagnoses Diagnosis Vulvar burning- Primary Unspecified symptom associated with female genital organs documented in this encounter Care Teams Senior Qa Automation Engineer Relationship Specialty Start Date End Date Casa Encarnacion MD [address] [place] [phone] PCP - General Internal Medicine 10/12/14 documented as of this encounter
--- OUTSIDE RECORDS SUMMARY | 2024-09-08 20:45 | XMS_ITS | Encounter Summary ---
Author Organization [facility] Address [address] [place] [address] Care Team Providers Care Clinical Case Manager Name Role Phone Casa Encarnacion MD Primary Care Provider + Reason for Visit * Reason Onset Date Comments Question 12/07/2015 Encounter Details Date Type Department Care Team (Late st Contact Info) Description 12/07/2015 Telephone [facility] METAL CASTING TRADES WORKER - [facility] [address] [facility], [address] [place] [address] Didi Roberto MD [address] [place] [address] Question Social History Tobacco Use Types Packs/Day [...] Telephone Encounter - Marilin Shah RN - 12/07/2015 2:35 PM CDT LMOR For pt to call office. Returning patient's call. documented in this encounter Plan of Treatment Not on file documented as of this encounter Visit Diagnoses Not on filedocumented in this encounter Care Teams Clinical Case Manager Relationship Specialty Start Date End Date Casa Encarnacion MD [address] [place] [phone] PCP - General Internal Medicine 10/12/14 documented as of this encounter
--- OUTSIDE RECORDS SUMMARY | 2024-09-08 20:45 | XMS_ITS | Encounter Summary ---
Author Organization [facility] Address [address] [place] [address] Care Team Providers Care Sampler First Name Role Phone Casa Encarnacion MD Primary Care Provider + Encounter Details Date Type Department Care Team (Late st Contact Info) Description 11/13/2015 Orders Only [facility] DEVELOPER AUTOMATIC - [facility] [address] [facility], [address] [place] [address] Didi Burleson MD [address] [place] [address] Acute vulvitis; Yeast infection of the vagina Social History [...] Associated Diagnosis Comments MISCELLANEOUS LAB TEST Routine 6 10:00 AM WEBMETHODS CONSULTANT Acute vulvitis Yeast infection of the vagina documented in this encounter Results * MISCELLANEOUS LAB TEST (11/08/2015 10:00 AM WEBMETHODS CONSULTANT) MISCELLANEOUS LAB TEST NON [facility] SPECIMEN TYPE NON [facility] MISCELLANEOUS LAB TEST NON [facility] Specimen of unknown material (specimen) 11/08/2015 10:00 AM WEBMETHODS CONSULTANT Didi Roberto MD CHEMISTRY ORDERABLES NON [facility] documented in this encounter Visit Diagnoses Diagnosis Acute vulvitis Vaginitis and vulvovaginitis, unspecified Yeast infection of the vagina Candidiasis of vulva and vagina documented in this encounter Care Teams Sampler First Relationship Specialty Start Date End Date Casa Encarnacion MD [address] [place] [phone] PCP - General Internal Medicine 10/12/14 documented as of this encounter
--- OUTSIDE RECORDS SUMMARY | 2024-09-08 20:45 | XMS_ITS | Encounter Summary ---
Author Organization [facility] Address [address] [place] [address] Care Team Providers Care Seating Captain Name Role Phone Casa Encarnacion MD Primary Care Provider + Reason for Visit * Reason Onset Date Comments Vaginitis 11/21/2015 Encounter Details Date Type Department Care Team (Late st Contact Info) Description 11/21/2015 Telephone [facility] UTILITY TECHNICIAN - [facility] [address] [facility], [address] [place] [address] Didi Roberto MD [address] [place] [phone] Vaginitis Social History Tobacco Use Types Packs/Day Years [...] Telephone Encounter - Lydia Escamilla RN - 11/21/2015 4:27 PM CDT Patient advised to get second opinion at [facility] with Dr Leonard, phone # given. She is hesitant about this. Advised her Dr. Lozano has exhausted what she can do for her. Rx sent for Diflucan. * Telephone Encounter - Didi Roberto MD - 11/21/2015 3:55 PM CDT I am not sure what else to offer pt. She should try for a second opinion at [facility] with Dr. Leonard, . Until then, let's try Diflucan 200 mg po every other day for 3 doses. Thanks! * Telephone Encounter - Lydia Escamilla RN - 11/21/2015 11:23 AM CDT Patient states she still has burning vaginal area; not when she voids. Flares up in early day and evening time. States she is still doing all remedies/avoiding products that she has been warned about/ but nothing is helping. Does state she can sleep at night. States she has been taking Advil and that helps slightly. documented in this encounter Plan of Treatment Not on file documented as of this encounter Visit Diagnoses Not on filedocumented in this encounter Care Teams Seating Captain Relationship Specialty Start Date End Date Casa Encarnacion MD [address] [place] [phone] PCP - General Internal Medicine 10/12/14 documented as of this encounter
--- OUTSIDE RECORDS SUMMARY | 2024-09-08 20:45 | XMS_ITS | Encounter Summary ---
Author Organization [facility] Address [address] [place] [address] Care Team Providers Care Prevention Coordinator Name Role Phone Casa Encarnacion MD Primary Care Provider + Encounter Details Date Type Department Care Team (Late st Contact Info) Description 12/05/2014 Orders Only [facility] SENIOR WATER/WASTEWATER ENGINEER - [facility] [address] [facility], [address] [place] [address] Didi Roberto MD [address] [place] [address] Vulvar burning Social History Tobacco Use Types Packs/Day Years [...] Procedure Name Priority Date/Time Associated Diagnosis Comments BACTERIAL VAGINOSIS STAIN Routine 11/30/2014 Vulvar burning documented in this encounter Results * (ABNORMAL) BACTERIAL VAGINOSIS [...] Roberto MD MICROBIOLO GY - GENERAL ORDERABLES NON [facility] documented in this encounter Visit Diagnoses Diagnosis Vulvar burning Unspecified symptom associated with female genital organs documented in this encounter Care Teams Prevention Coordinator Relationship Specialty Start Date End Date Casa Encarnacion MD [address] [place] [phone] PCP - General Internal Medicine 10/12/14 documented as of this encounter
--- OUTSIDE RECORDS SUMMARY | 2024-09-08 20:45 | XMS_ITS | Encounter Summary ---
Author Organization [facility] Address [address] [place] [address] Care Team Providers Care Vocational Rehabilitation Counselor Name Role Phone Casa Encarnacion MD Primary Care Provider + Reason for Visit * Reason Onset Date Comments Question 10/17/2015 UTI Encounter Details Date Type Department Care Team (Late st Contact Info) Description 10/17/2015 Telephone [facility] CORRUGATED BOX MACHINE OPERATOR - [facility] [address] [facility], [address] [place] [address] Didi Roberto MD [address] [place] [address] Question (UTI) Social History Tobacco Use Types Packs/Day Years [...] encounter Miscellaneous Notes * Telephone Encounter - Didi Roberto MD - 10/17/2015 11:51 AM CST Agree. AUTOMATION DEVELOPER * Telephone Encounter - Lydia Escamilla RN - 10/17/2015 11:10 AM CST Patient states burning got better after a couple days of Diflucan but now is back again. After discussion, patient states she is unable to get to a lab for UA. Advised her to go to her PCP who is in [place], [place]. Patient agreed she will do that. AUTOMATION DEVELOPER documented in this encounter Plan of Treatment Not on file documented as of this encounter Visit Diagnoses Not on filedocumented in this encounter Care Teams Vocational Rehabilitation Counselor Relationship Specialty Start Date End Date Casa Encarnacion MD [address] [place] [phone] PCP - General Internal Medicine 10/12/14 documented as of this encounter
--- OUTSIDE RECORDS SUMMARY | 2024-09-08 20:45 | XMS_ITS | Encounter Summary ---
Author Organization [facility] Address [address] [place] [address] Care Team Providers Care Wet Machine Operator Name Role Phone Casa Encarnacion MD Primary Care Provider + Reason for Visit * Reason Onset Date Comments Results 10/20/2014 Encounter Details Date Type Department Care Team (Late st Contact Info) Description 10/20/2014 Telephone [facility] Minimally Invasive Gynecology [address] [facility] [place] [address] Ryan Marks MD NO ADDRESS ON FILE Results Social History Tobacco Use Types Packs/Day Years Used Date Smoking Tobacco: Never Alcohol Use Standard Drinks/Week Comments No 0 (1 standard drink = 0.6 oz pur e alcohol) Sex and Gender Information Value Date Recorded Sex Assigned at Not on file Gender Identity Not on file Sexual Orientation Not on file documented as of this encounter Miscellaneous Notes * Telephone Encounter - Merly Jordan - 10/20/2014 1:10 PM CST Pt notified of normal pap results ER [facility] documented in this encounter Plan of Treatment Not on file documented as of this encounter Visit Diagnoses Not on filedocumented in this encounter Care Teams Wet Machine Operator Relationship Specialty Start Date End Date Casa Encarnacion MD [address] [place] [phone] PCP - General Internal Medicine 10/12/14 documented as of this encounter
--- OUTSIDE RECORDS SUMMARY | 2024-09-08 20:45 | XMS_ITS | Encounter Summary ---
Author Organization [facility] Address [address] [place] [address] Care Team Providers Care Television Anchor Name Role Phone Casa Encarnacion MD Primary Care Provider + Reason for Visit * Reason Comments Vaginal Problem burning Encounter Details Date Type Department Care Team (Late st Contact Info) Description 05/24/2015 2:00 PM CDT Office Visit [facility] SUPERVISOR TOWER - [facility] [address] [facility] [place] [address] Didi Dominguez MD [address] [place] [address] [address] [place] [phone] Vulvitis (Primary Dx); Vaginal atrophy; Vulvar atrophy; Recurrent vaginitis Social History Tobacco Use Types Packs/Day Years [...] Sign Reading Time Taken Comments Blood Pressure 132/72 05/24/2015 2:02 PM CDT Pulse - - Temperature - - Respiratory Rate - - Oxygen Saturation - - Inhaled Oxygen Concentration - - Weight 59.4 kg (131 lb) 05/24/2015 2:02 PM CDT Height 167.6 cm (5' 6 ) 05/24/2015 2:02 PM CDT Body Mass Index 21.14 05/24/2015 2:02 PM CDT documented in this encounter Progress Notes * Didi Roberto MD - 05/25/2015 11:07 AM CDT Chief Complaint Patient presents with ??? Vaginal Problem burning Subjective Luanne Gotti is here for the above complaints. She is, overall, doing better than when she first came to see me. However, she has had to have her PCP give her 2 doses of Diflucan, last being around May 3. She is worried that her burning intensity will return. She is still using Estrace and Crisco as discussed. She likes the effects of Crisco--very soothing. However, she gets exacerbations of burning, and usually when takes Diflucan, it improves drastically. Her burning currently is about 7/10 in intensity. ROS: no new bladder issues, no rash, no changes in BM Objective BP 132/72 mmHg Ht 5' 6 (1.676 m) Wt 131 lb (59.421 kg) BMI 21.15 kg/m2 ? No General: NAD, pleasant female Pelvic exam: External genitalia: atrophic, no erythema or satellite lesions. Urethra, bladder, urethral meatus: normal Vagina: atrophic mucosa. Scant white discharge present, adherent to vag lawrence ASSESSMENT: Encounter Diagnoses Name Primary? Vulvitis Yes ??? Vaginal atrophy ??? Vulvar atrophy ??? Recurrent vaginitis PLAN: Orders Placed This Encounter ??? MISCELLANEOUS LAB TEST ??? estradiol (ESTRACE) 0.01% (0.1 mg/g) vaginal cream ??? fluconazole (DIFLUCAN) 150 mg tablet I counseled pt on recurrent vaginitis (yeast in her case). Will send out another Gen path panel to see if yeast infection is back. Will cont with current care and treat empirically with Diflucan 150 mg po x2. If yeast return, then instead of Boric acid suppositories, can try to compound Nystatin. Samples of Estrace given x2. Total time of visit: 15 min Total time counseled: 10 min Counseled pt/pt's family on: as stated above. Didi Roberto MD documented in this encounter Plan of Treatment Not on file documented as of this encounter Results * MISCELLANEOUS LAB TEST (05/24/2015 10:00 AM CDT) MISCELLANEOUS LAB TEST NON [facility] SPECIMEN TYPE NON [facility] MISCELLANEOUS LAB TEST NON [facility] Specimen of unknown material (specimen) 05/24/2015 10:00 AM CDT Didi Roberto MD CHEMISTRY ORDERABLES NON [facility] documented in this encounter Visit Diagnoses Diagnosis Vulvitis- Primary Vaginitis and vulvovaginitis, unspecified Vaginal atrophy Postmenopausal atrophic vaginitis Vulvar atrophy Atrophy of vulva Recurrent vaginitis Vaginitis and vulvovaginitis, unspecified documented in this encounter Care Teams Television Anchor Relationship Specialty Start Date End Date Casa Encarnacion MD [address] [place] [phone] PCP - General Internal Medicine 10/12/14 documented as of this encounter
--- OUTSIDE RECORDS SUMMARY | 2024-09-08 20:45 | XMS_ITS | Encounter Summary ---
Author Organization [facility] Address [address] [place] [address] Care Team Providers Care Forging Dies Final Finisher Name Role Phone Casa Encarnacion MD Primary Care Provider + Reason for Visit * Reason Onset Date Comments Yeast Infection 11/15/2015 Encounter Details Date Type Department Care Team (Late st Contact Info) Description 11/15/2015 Telephone [facility] CLIENT SERVICES SPECIALIST - [facility] [address] [facility], [address] [place] [address] Didi Roberto MD [address] [place] [address] Yeast Infection Social History Tobacco Use Types Packs/Day Years [...] Telephone Encounter - Marilin Shah RN - 11/16/2015 5:06 PM CST Pt notified as stated below. IER ASSOCIATE * Telephone Encounter - Didi Roberto MD - 11/16/2015 1:49 PM CASHIER ASSOCIATE Her yeast culture is negative to date and her Gen path is negative for yeast as well. I would just keep doing what she is doing and try more baking soda sitz and Crisco. Call back next week with an update. IER ASSOCIATE * Telephone Encounter - Isha Fernandes - 11/15/2015 2:18 PM CST Patient took both dosages for Diflucan, last one was on Friday. Pt still having some burning and isuncomfortable. States she is doing everything doctor said with no relief. IER ASSOCIATE documented in this encounter Plan of Treatment Not on file documented as of this encounter Visit Diagnoses Not on filedocumented in this encounter Care Teams Forging Dies Final Finisher Relationship Specialty Start Date End Date Casa Encarnacion MD [address] [place] [phone] PCP - General Internal Medicine 10/12/14 documented as of this encounter
--- OUTSIDE RECORDS SUMMARY | 2024-09-08 20:45 | XMS_ITS | Encounter Summary ---
Author Organization [facility] Address [address] [place] [address] Care Team Providers Care Solar Business Developer Name Role Phone Casa Encarnacion MD Primary Care Provider + Reason for Visit * Reason Comments Vaginal Problem referral from Dr. Ra carlos Encarnacion for vaginal itching and dryness Encounter Details Date Type Department Care Team (Latest Contact Info) Description 10/12/2014 1:00 PM SQUARE CUTTER Office Visit [facility] [address] [place] [address] Ryan Marks MD NO ADDRESS ON FILE Special screening for malignant neoplasms, vagina (Primary Dx); Special screening examination for human papillomavirus (HPV); Vaginal discharge; Vagina itching Social History Tobacco Use Types Packs/Day Years [...] Sign Reading Time Taken Comments Blood Pressure 122/74 10/12/2014 12:26 PM SQUARE CUTTER Pulse - - Temperature - - Respiratory Rate - - Oxygen Saturation - - Inhaled Oxygen Concentration - - Weight 55.3 kg (122 lb) 10/12/2014 12:26 PM SQUARE CUTTER Height 163.2 cm (5' 4.25 ) 10/12/2014 12:[address] Body Mass Index 20.78 10/12/2014 12:26 PM SQUARE CUTTER documented in this encounter Progress Notes * Ryan Marks MD - 10/12/2014 1:08 PM CST New Patient History & Physical HPI: Luanne Gotti is a 79 y.o. female [id number] who is referred by Dr. Encarnacion for itching and vaginal dryness. The patient reports she has had this itching for some time, and has tried several medications for this condition. These medications include premarin, which helps, but has not helped as much recently, as well as clobetasol/betamethasone cream and lidocaine jelly. Her physician was worried about her using premarin daily, thus she was only using it a couple times per week. She was given diflucan a week ago, and has taken off and on over the last several months. Menarche 13/monthly/3 days/2-3 pads/day; vaginal hysterectomy 1984 REVIEW OF SYSTEMS: General: negative for fever/chills, weight changes Psychological: negative for anxiety or depressive symptoms Hematological and Lymphatic: no hx of anemia, no blood transfusion, no hx of phlebitis Endocrine: negative for diabetes Breast: negative for breast lumps or pain Respiratory: negative for - asthma or bronchitis Cardiovascular: negative for - murmur or mitral valve prolapse Gastrointestinal: negative for reflux, abdominal pain, change in bowel habits, or black or bloody stools negative for - gallbladder disease Genito-Urinary: + itching and vaginal dryness; negative for - hematuria, incontinence or frequent UTI Neurological: negative for - headaches, seizures Dermatological: negative for skin rashes or unusual skin lesions OB History Para Term AB SAB TAB Ectopic Multiple Living 3 3 3 # Outcome Date GA Lbr Isaac/2nd Weight Sex Delivery Anes PTL Lv 3 Para 2 Para 1 Para Past Medical History Diagnosis Date ??? Osteopenia ??? Arthritis ??? Abnormal EKG ??? Hypertension Past Surgical History Procedure Laterality Date ??? Hx cardiac electrophysiology study and ablation 2009 ??? Hx hysterectomy 1984 vag ??? Hx appendectomy ??? Hx colectomy 2011 Family History Problem Relation Age of Onset ??? Heart Disease Father ??? Hypertension Father History Social History ??? Marital Status: Spouse Name: N/A Number of Children: 3 ??? Years of Education: N/A Occupational History ??? retired Social History Main Topics ??? Smoking status: Never Smoker ??? Smokeless tobacco: Not on file ??? Alcohol Use: No ??? Drug Use: No ??? Sexual Activity: No Other Topics Concern ??? Service No ??? Blood Transfusions Yes ??? Caffeine Concern No ??? Occupational Exposure No ??? Hobby Hazards No ??? Sleep Concern No ??? Stress Concern No ??? Weight Concern Yes loosing weight since colon resection ??? Special Diet No ??? Back Care Yes excercise ??? Exercise Yes ??? Seat Belt Yes ??? Self-Exams Yes Social History Narrative Current Outpatient Prescriptions Medication Sig Dispense Refill ??? PSYLLIUM HUSK (METAMUCIL ORAL) Take by mouth. ??? atenolol (TENORMIN) 25 mg tablet Take 25 mg by mouth daily. ??? conjugated estrogens (PREMARIN) 0.625 mg/gram vaginal cream Insert vaginally daily at bedtime. ??? HYDROCORTISONE AC/LIDOCAINE (LIDOCAINE HCL-HYDROCORTISON AC TOPICAL) Apply to affected area. ??? clotrimazole-betamethasone (LOTRISONE) 1-0.05 % Cream Apply to affected area 2 times daily. ??? chlordiazePOXIDE (LIBRIUM) 5 mg capsule ??? mirtazapine (REMERON) 30 mg tablet No current facility-administered medications for this visit. No Known Allergies PHYSICAL EXAM: Blood pressure 122/74, height 5' 4.25 (1.632 m), weight 122 lb (55.339 kg). General: The patient appears well, alert, in no distress. Neuro/Psych: Alert and oriented x 3, mood and affect normal HEENT: Normocephalic, atraumatic Respiratory: Lungs are clear to auscultation bilaterally. Cardiovascular: Regular rate and rhythm, no murmurs auscultated Breast: No lumps, lesions, unusual discharge, tenderness, or retraction Abdomen: Soft without tenderness, guarding. MSK: Equal strength bilaterally, no weakness, no joint pain Extremities: No clubbing or cyanosis PELVIC EXAM: External: No lesions BUS: Normal Vulva: Normal appearing vulva with no masses, tenderness or lesions Vagina: Normal appearing vagina with normal color and discharge, no lesions; pt points to areas of itching externally, but no specific lesions noted Cervix: surgically absent Uterus: surgically absent, vaginal cuff well healed Adnexa: Normal - No masses, tenderness or nodularity Cul-de-sac: No masses or tenderness Rectal: rectal exam not indicated ASSESSMENT: 79 y.o. female with vulvovaginitis, atrophic vagina No apparent lesions, less suspicious for lichen sclerosis or IAM at this time Wetmount negative for clue cells, trichomonads, or hyphae, budding; pH 4.0 PLAN: Premarin 1-2 times/week intravaginally, daily on external genitalia Pap smear obtained If no resolution, will refer to Dr Lozano for further evaluation of vulvar pruritis and dryness Ryan Marks MD RE CUTTER documented in this encounter Plan of Treatment Not on file documented as of this encounter Procedures Procedure Name Priority Date/Time Associated Diagnosis Comments POC VAGINAL WET PREP Routine 10/12/2014 2:40 PM SQUARE CUTTER Vaginal discharge Vagina itching POC PH, VAGINAL FLUID (NON-MATERNAL) Routine 10/12/2014 2:40 PM SQUARE CUTTER Vaginal discharge Vagina itching documented in this encounter Results * POC VAGINAL WET PREP (10/12/2014 2:40 PM SQUARE CUTTER) WET WBCS neg [facility] WET RBCS neg [facility] WET YEAST neg [facility] WET TRICHOMONAS neg [facility] WET CLUE CELLS neg [facility] Vaginal 10/12/2014 2:40 PM SQUARE CUTTER Ryan Marks MD POINT OF CARE HERLINDA CORDERO Performing Organization Address [facility] Co de Phone Number [facility] * POC PH, VAGINAL FLUID (NON-MATERNAL) (10/12/2014 2:40 PM SQUARE CUTTER) PH, VAGINAL FLD POC 4.0 [facility] Vaginal 10/12/2014 2:40 PM SQUARE CUTTER Ryan Marks MD POINT OF CARE HERLINDA CORDERO [facility] documented in this encounter Visit Diagnoses Diagnosis Special screening for malignant neoplasms, vagina- Primary Special screening examination for human papillomavirus (HPV) Vaginal discharge Leukorrhea, not specified as infective Vagina itching Pruritus of genital organs documented in this encounter Care Teams Solar Business Developer Relationship Specialty Start Date End Date Casa Encarnacion MD [address] [place] [address] PCP - General Internal Medicine 10/12/14 documented as of this encounter
--- OUTSIDE RECORDS SUMMARY | 2024-09-08 20:45 | XMS_ITS | Encounter Summary ---
Author Organization [facility] Address [address] [place] [address] Care Team Providers Care Flooring Machine Operator Name Role Phone Casa Encarnacion MD Primary Care Provider + Reason for Visit * Reason Onset Date Comments Results 05/30/2015 Encounter Details Date Type Department Care Team (Late st Contact Info) Description 05/30/2015 Telephone [facility] SLAB INSPECTOR - [facility] [address], [address] [place] [address] Demetrice Márquez RN Results Social History Tobacco Use Types Packs/Day [...] Telephone Encounter - Demetrice Cabral RN - 05/30/2015 11:39 AM CDT Pt made aware. * Telephone Encounter - Demetrice Cabral RN - 05/30/2015 11:39 AM CDT ----- Message from Didi Roberto MD sent at 05/29/2015 10:50 PM CDT ----- Please let Luanne know that she actually tested negative for yeast this time. I would not recommend Diflucan long-term at this point. She can continue her current regimen otherwise. Call when symptoms return. Thanks! documented in this encounter Plan of Treatment Not on file documented as of this encounter Visit Diagnoses Not on filedocumented in this encounter Care Teams Flooring Machine Operator Relationship Specialty Start Date End Date Casa Encarnacion MD [address] [place] [phone] PCP - General Internal Medicine 10/12/14 documented as of this encounter
--- OUTSIDE RECORDS SUMMARY | 2024-09-08 20:45 | XMS_ITS | Encounter Summary ---
Author Organization [facility] Address [address] [place] [address] Care Team Providers Care Washhouse Worker Name Role Phone Casa Encarnacion MD Primary Care Provider + Reason for Visit * Reason Comments Vaginal Problem burning once a month X last year Encounter Details Date Type Department Care Team (Late st Contact Info) Description 11/03/2014 3:00 PM JUTE BAG SEWER Office Visit [facility] GAS PLANT SPECIALIST - [facility] [address] [place] [address] Didi Dominguez MD [address] [place] [address] [address] [place] [address] Vulvar burning (Primary Dx); Vulvar itching; Vulvar atrophy; Vaginal atrophy; Vulvitis; Vulvodynia Social History Tobacco Use Types Packs/Day [...] Sign Reading Time Taken Comments Blood Pressure 144/82 11/03/2014 3:02 PM JUTE BAG SEWER Pulse - - Temperature - - Respiratory Rate - - Oxygen Saturation - - Inhaled Oxygen Concentration - - Weight 56.7 kg (125 lb) 11/03/2014 3:02 PM JUTE BAG SEWER Height 167.6 cm (5' 6 ) 11/03/2014 3:02 PM JUTE BAG SEWER Body Mass Index 20.18 11/03/2014 3:02 PM JUTE BAG SEWER documented in this encounter Progress Notes * Didi Roberto MD - 11/04/2014 10:54 PM CST New Vulvovaginal Problem Visit--OBGYN Chief Complaint Patient presents with ??? Vaginal Problem burning once a month X last year HPI: Lunane Gotti is a 79 y.o. who presents for the above complaints. Pt is here with her daughter. She is really bothered by these issues. Unable to concentrate on much else. Does not want to leave the house. Her daughter thinks she is severely depressed, almost suicidal (but not really so). -Duration of symptoms: 5 years; however for the last 8 months, it got a lot worse and burning episodes have gotten a lot more frequent, almost monthly or biweekly. Her PCp has been treating her with Diflucan. She states that it helps to eradicate symptoms temporarily, for a few weeks, and then itcomes back. At one point, she took 100 mg of Diflucan for 2 weeks on daily basis. Just recently took 2 pills that were left over (last weekend). -Any event associated with onset of symptoms: ?yeast infection -Other treatments that were tried, including OTC: Diflucan, lidocaine (made symptoms worse, so she does not use it), Premarin (states, this is the only thing that helps now ), Clobetasol (gave pt a rash?), Clotrimazole. -Diagnoses given for this by other providers: yeast infection, vulvovaginal atrophy -Symptoms: Dyspareunia: n/a Vulvar Burnin/10 Vulvar Itchin/10 Vulvar Pain: 4/10 Vaginal Burnin/10 Vaginal Itchin/10 Vaginal pain: 0/10 Burning/pain after intercourse: n/a Bladder symptoms: no Vaginal dryness: yes Vaginal discharge: no Symptoms are better with: Diflucan and Premarin. Currently uses at the introitus daily and vaginal applicators twice a week. Worse with: as above Product use: Please see scanned questionnaire filled out by the patieint. Other RIGHT OF WAY SUPERVISOR History: Abnormal pap smears: no STIs or PID history: no Sexual dysfunction: n/a Dysmenorrhea: menopausal OB History Para Term AB SAB TAB Ectopic Multiple Living 3 3 3 3 # Outcome Date GA Lbr Isaac/2nd Weight Sex Delivery Anes PTL Lv 3 Term 1967 40w0d 8 lb 3 oz (3.714 kg) F Gen N Y 2 Term 1962 40w0d 7 lb 8 oz (3.402 kg) F Vaginal Gen N Y 1 Term 1961 40w0d 8 lb 2 oz (3.685 kg) F Vaginal Gen N Y Past Medical History Diagnosis Date ??? Osteopenia ??? Arthritis ??? Abnormal EKG ??? Hypertension ??? Depression Past Surgical History Procedure Laterality Date ??? Hx cardiac electrophysiology study and ablation 2009 ??? Hx hysterectomy 1984 vag ??? Hx appendectomy ??? Hx colectomy 2011 No Known Allergies Current Outpatient Prescriptions on File Prior to Visit Medication Sig Dispense Refill ??? chlordiazePOXIDE (LIBRIUM) 5 mg capsule ??? mirtazapine (REMERON) 30 mg tablet ??? PSYLLIUM HUSK (METAMUCIL ORAL) Take by mouth. ??? atenolol (TENORMIN) 25 mg tablet Take 25 mg by mouth daily. ??? conjugated estrogens (PREMARIN) 0.625 mg/gram vaginal cream Insert vaginally daily at bedtime. No current facility-administered medications on file prior to visit. Family History Problem Relation Age of Onset ??? Heart Disease Father ??? Hypertension Father History Social History ??? Marital Status: Spouse Name: N/A Number of Children: 3 ??? Years of Education: N/A Occupational History ??? retired Social History Main Topics ??? Smoking status: Never Smoker ??? Smokeless tobacco: Never Used ??? Alcohol Use: Yes ??? Drug Use: Yes ??? Sexual Activity: No Other Topics Concern [...] Yes ??? Self-Exams Yes Social History Narrative Review of Systems - A 12 Point ROS was negative except as noted below General ROS: negative for weight changes, fever Psychological ROS: positive for - anxiety and depression Respiratory ROS: negative for cough, shortness of breath, or wheezing Cardiovascular ROS: negative for chest pain or dyspnea on exertion Gastrointestinal ROS: negative for reflux, abdominal pain, change in bowel habits, or black or bloody stools Genito-Urinary ROS: see above Dermatological ROS: negative for skin rashes or unusual skin lesions Physical exam: BP 144/82 Ht 5' 6 (1.676 m) Wt 125 lb (56.7 kg) BMI 20.19 kg/m2 ? No General: no acute distress, pleasant elderly female Pelvic exam: Labia majora: atrophic Labia minora: atrophic, partially resorbed in the inferior portions. There is no pain. There is burning on the medial aspects bilaterally. The tissue is erythematous from atrophy, no evidence of infection Clitoris: normal Introitus: burning noted by pt, mild Bartholins Glands: nontender Periurethral Glands: mildly tender Urethra, bladder, urethral meatus: normal Vagina: atrophic, copious amount of Premarin noted Assessment and Plan: ICD-9-CM ICD-10-CM 1. Vulvar burning 625.9 N94.89 2. Vulvar itching 698.1 L29.2 3. Vulvar atrophy 624.1 N90.5 4. Vaginal atrophy 627.3 N95.2 5. Vulvitis 616.10 N76.2 6. 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 I suspect there is a multifactorial nature to her symptoms. Unfortunately, I also think there is now a centralized pain or burning component here,which will be challenging to treat. Pt appears reluctant to accept my explanations and recommendations. Daughter is supportive. For the atrophic component: switch to Estrace at this time. Premarin can be irritating and cause burning due to the alcohol-containing base. She can stop using it vaginally. Continue using it QHS. To try to desensitize the area, will try compounded Gabapentin/Baclofen/Ketamine ointment bid. I discussed specifically when/how to use it, and the amount. I emphasized that it should be applied to clean skin/tissue. We can try small dose of Atarax at night as well, mostly to help with itching. Sometimes burning responds as well. Counseled pt extensively on vulvar care guidelines. Outlined plan of care specifically for her: Use Crisco to moisturize vulvar tissue and provide protection to the tissue from irritants/frictionthroughout the day. May try Baking soda sitz baths for comfort I am unable to perform Gen path panel due to copious amnt of Premarin in vagina. Also, she has recent Diflucan use. Will have to do this in a few weeks. Discussed not using anything on the tissue theday before appnt. RTO 2 wks for follow up Biopsy: no Gen Path panel: no Total time of visit: 60 min Total time counseled: 50 min Counseled pt/pt's family on: as stated above. Didi Roberto MD 11/04/2014 BAG SEWER documented in this encounter Plan of Treatment Not on file documented as of this encounter Visit Diagnoses Diagnosis Vulvar burning- Primary Unspecified symptom associated with female genital organs Vulvar itching Pruritus of genital organs Vulvar atrophy Atrophy of vulva Vaginal atrophy Postmenopausal atrophic vaginitis Vulvitis Vaginitis and vulvovaginitis, unspecified Vulvodynia Vulvodynia, unspecified documented in this encounter Care Teams Washhouse Worker Relationship Specialty Start Date End Date Casa Encarnacion MD [address] [place] [phone] PCP - General Internal Medicine 10/12/14 documented as of this encounter
--- OUTSIDE RECORDS SUMMARY | 2024-09-08 20:45 | XMS_ITS | Encounter Summary ---
Author Organization [facility] Address [address] [place] [address] Care Team Providers Care Patient Account Analyst Name Role Phone Casa Encarnacion MD Primary Care Provider + Reason for Visit * Reason Onset Date Comments Other 01/26/2015 Encounter Details Date Type Department Care Team (Late st Contact Info) Description 01/26/2015 Telephone [facility] INORGANIC CHEMICAL TECHNICIAN - [facility] [address] [place] [address] Didi Roberto MD [address] [place] [address] Other Social History Tobacco Use Types Packs/Day Years [...] encounter Miscellaneous Notes * Telephone Encounter - Sandra Yu RMA - 01/26/2015 5:38 PM CDT Pt has been informed and Rx for Diflucan sent to pharmacy. Pt already had LFTs done at PCP. Will have them fax us a copy of the results. * Telephone Encounter - Didi Roberto MD - 01/26/2015 3:50 PM CDT Continue to do diflucan 150 mg weekly for another 6 wks. Please have PCP check LFTs again. She can have a copy of her Gen Path results. Thanks! * Telephone Encounter - Sandra Yu RMA - 01/26/2015 12:31 PM CDT Pt calling to report she has finished the weekly diflucan treatments, but thinks sx may be returning. Has been using compound cream and following Vulvar Care GuidIines. I have moved her follow up appt up to 02-15-15, she can only come on a Friday due to transportation issues and this is the soonest. She is requesting lab results as well. Please advise. documented in this encounter Plan of Treatment Not on file documented as of this encounter Visit Diagnoses Not on filedocumented in this encounter Care Teams Patient Account Analyst Relationship Specialty Start Date End Date Casa Encarnacion MD [address] [place] [address] PCP - General Internal Medicine 10/12/14 documented as of this encounter
--- OUTSIDE RECORDS SUMMARY | 2024-09-08 20:45 | XMS_ITS | Encounter Summary ---
Author Organization [facility] Address [address] [place] [address] Care Team Providers Care Concrete Pipe Maker Name Role Phone Casa Encarnacion MD Primary Care Provider + Reason for Visit * Reason Onset Date Comments Results 12/05/2015 neg for yeast Encounter Details Date Type Department Care Team (Late st Contact Info) Description 12/05/2015 Telephone [facility] AUTOMOTIVE ELECTRICAL HELPER - [facility] [address] [place] [address] Didi Estevez MD [address] [place] [address] [address] [place] [address] Results (neg for yeast) Social History Tobacco Use Types Packs/Day Years [...] Telephone Encounter - Lydia Escamilla RN - 12/05/2015 1:33 PM CDT Patient advised that yeast culture was negative. Advised that we do not want to prescribe any more diflucan. She states those last 3 doses of Diflucan has helped. She has appt next the with Dr Leonard * Telephone Encounter - Lydia Escamilla RN - 12/05/2015 11:13 AM CDT ----- Message from Didi Roberto MD sent at 12/05/2015 9:10 AM CDT ----- Please let pt know her final yeast culture came back negative. I really feel uncomfortable using Diflucan on her so much w/such results. Definitely I think she should try to see the [facility] at [facility], where we already referred her to, Dr. Leonard. Thanks! If she needs it again, the number is [phone]. documented in this encounter Plan of Treatment Not on file documented as of this encounter Visit Diagnoses Not on filedocumented in this encounter Care Teams Concrete Pipe Maker Relationship Specialty Start Date End Date Casa Encarnacion MD [address] [place] [phone] PCP - General Internal Medicine 10/12/14 documented as of this encounter
--- OUTSIDE RECORDS SUMMARY | 2024-09-08 20:45 | XMS_ITS | Encounter Summary ---
Author Organization [facility] Address [address] [place] [address] Care Team Providers Care Video Editing Internship Name Role Phone Casa Encarnacion MD Primary Care Provider + Reason for Visit * Reason Comments Follow Up vulvar itching and b urning; recurrent yeast Encounter Details Date Type Department Care Team (Late st Contact Info) Description 03/01/2015 1:15 PM CDT Office Visit [facility] LINING IRONER - [facility] [address] [facility], [address] [place] [address] Didi Dominguez MD [address] [place] [address] [address] [place] [address] Vulvitis (Primary Dx) Social History Tobacco Use Types [...] Reading Time Taken Comments Blood Pressure 138/78 03/01/2015 1:37 PM CDT Pulse - - Temperature - - Respiratory Rate - - Oxygen Saturation - - Inhaled Oxygen Concentration - - Weight 59.4 kg (131 lb) 03/01/2015 1:37 PM CDT Height 167.6 cm (5' 6 ) 03/01/2015 1:37 PM CDT Body Mass Index 21.14 03/01/2015 1:37 PM CDT documented in this encounter Progress Notes * Didi Roberto MD - 03/02/2015 1:06 PM CDT Chief Complaint Patient presents with ??? Follow Up vulvar itching and burning; recurrent yeast Subjective Luanne Gotti is here for the above complaints. She is doing much better. Following VCG, using Crisco and the compounded ointment. Finishing her last Diflucan this week. Has not had any issues, excepthad a recent UTI and was treated with abx by her PCP. Had a lot of burning with it. Now symptoms res olved. She is just really worried about stopping the Diflucan treatment. In the past, would get thesymptoms back in a few weeks after stopping. ROS: no current bladder issues, no rash, no changes in BM Objective BP 138/78 mmHg Ht 5' 6 (1.676 m) Wt 131 lb (59.421 kg) BMI 21.15 kg/m2 ? No General: NAD, pleasant female Pelvic exam: External genitalia: normal anatomy, atrophic changes noted. L.minora--no erythema, better moisturized. No tenderness. Vestibule--no itching or tenderness, no erythema. Introitus--no changes, +atrophy, no discharge noted Urethra, bladder, urethral meatus: normal ASSESSMENT: Encounter Diagnosis Name Primary? Vulvitis Yes PLAN: Orders Placed This Encounter ??? FUNGUS CULTURE, OTHER Will do test of cure culture today. Expect this to be neg given how much Diflucan pt has been on. In the future, may do Boric acid vaginal suppositories if yeast continue to recur. Continue current care otherwise. Reviewed everything with pt. Answered all questions. We will call with yeast culture results. Pt to call us with an uptdate on how she is doing w/o Diflucan in a few weeks Total time of visit: 15 min Total time counseled: 10 min Counseled pt/pt's family on: as stated above. Didi Roberto MD documented in this encounter Plan of Treatment Not on file documented as of this encounter Results * FUNGUS CULTURE, OTHER (03/01/2015 3:41 PM CDT) CULTURE No fungus isolated. ALEX METHOD AEROBIC CULTURE 03/30/2015 2:15 PM CDT [facility] Genital (Vaginal) Collection / Unknown 03/01/2015 3:41 PM CDT 03/01/2015 9:07 PM CDT Didi Roberto MD MICROBIOLO GY - GENERAL ORDERABLES [facility] CLIA# [id number] [address] [place] [id number] documented in this encounter Visit Diagnoses Diagnosis Vulvitis- Primary Vaginitis and vulvovaginitis, unspecified documented in this encounter Care Teams Video Editing Internship Relationship Specialty Start Date End Date Casa Encarnacion MD [address] [place] [address] PCP - General Internal Medicine 10/12/14 documented as of this encounter
--- OUTSIDE RECORDS SUMMARY | 2024-09-08 20:45 | XMS_ITS | Encounter Summary ---
Author Organization [facility] Address [address] [place] [address] Care Team Providers Care Surgical Technologist Name Role Phone Casa Encarnacion MD Primary Care Provider + Reason for Visit * Reason Onset Date Comments Medication Question 11/09/2014 Encounter Details Date Type Department Care Team (Late st Contact Info) Description 11/09/2014 Telephone [facility] COUNTER SALES REPRESENTATIVE - [facility] [address] [facility], [address] [place] [address] Didi Roberto MD [address] [place] [address] Medication Question Social History Tobacco [...] Telephone Encounter - Didi Roberto MD - 11/09/2014 3:21 PM AMORTIZATION SCHEDULE CLERK OK, noted. TIZATION SCHEDULE CLERK * Telephone Encounter - Sandra Yu RMA - 11/09/2014 2:55 PM CST Pt given instruction on use of compound cream and estrace. Advised ok to use crisco for additional moisturization as well. TIZATION SCHEDULE CLERK * Telephone Encounter - Colette Hyman - 11/09/2014 1:58 PM CST Medication question TIZATION SCHEDULE CLERK documented in this encounter Plan of Treatment Not on file documented as of this encounter Visit Diagnoses Not on filedocumented in this encounter Care Teams Surgical Technologist Relationship Specialty Start Date End Date Casa Encarnacion MD [address] [place] [phone] PCP - General Internal Medicine 10/12/14 documented as of this encounter
--- OUTSIDE RECORDS SUMMARY | 2024-09-08 20:45 | XMS_ITS | Encounter Summary ---
Author Organization [facility] Address [address] [place] [address] Care Team Providers Care Medical Equipment Technician Name Role Phone Casa Encarnacion MD Primary Care Provider + Reason for Visit * Reason Onset Date Comments Question 11/22/2014 Encounter Details Date Type Department Care Team (Late st Contact Info) Description 11/22/2014 Telephone [facility] KINESIOTHERAPIST - [facility] [address] [facility], [address] [place] [address] Didi Roberto MD [address] [place] [address] Question Social History Tobacco Use [...] Telephone Encounter - Marilin Shah RN - 11/22/2014 1:13 PM CDT Pt notified. Will keep OV scheduled 11/30/14. * Telephone Encounter - Didi Roberto MD - 11/22/2014 12:57 PM CDT If I give her diflucan or any other anti-yeast medicine now, she has to wait at least 2 weeks before coming in to see me. We needed to do testing to see if she has yeast. * Telephone Encounter - Marilin Shah RN - 11/22/2014 10:56 AM CDT OV 11/03/14. UTI last week. Prescribed an antibiotic rx by PCP. Finished antibiotic yesterday. C/o vaginal itching. No unusual vaginal discharge or odor noted. Requesting Diflucan rx. F/u OV scheduled11/30/14. pls advise. thx. * Telephone Encounter - Colette Hyman - 11/22/2014 10:12 AM CDT Patient is on medication, but would like to check on another medication. Patient say she is having vaginal pain documented in this encounter Plan of Treatment Not on file documented as of this encounter Visit Diagnoses Not on filedocumented in this encounter Care Teams Medical Equipment Technician Relationship Specialty Start Date End Date Casa Encarnacion MD [address] [place] [phone] PCP - General Internal Medicine 10/12/14 documented as of this encounter
--- OUTSIDE RECORDS SUMMARY | 2024-09-08 20:45 | XMS_ITS | Encounter Summary ---
Author Organization [facility] Address [address] [place] [address] Care Team Providers Care Landscaping Specialist Name Role Phone Casa Encarnacion MD Primary Care Provider + Reason for Visit * Reason Onset Date Comments Labs Only 12/07/2014 Encounter Details Date Type Department Care Team (Late st Contact Info) Description 12/07/2014 Telephone [facility] KILN DOOR REPAIRER - [facility] [address] [facility], [address] [place] [address] Didi Roberto MD [address] [place] [address] Labs Only Social History Tobacco Use Types Packs/Day [...] encounter Miscellaneous Notes * Telephone Encounter - Elisa Ryan - 12/07/2014 4:17 PM CDT Patient aware. * Telephone Encounter - Didi Roberto MD - 12/07/2014 3:29 PM CDT i ordered it. Thanks! * Telephone Encounter - Elisa Ryan - 12/07/2014 3:25 PM CDT Patient called and is needing an order sent for lab for her liver function. She is having done at her primary office. documented in this encounter Plan of Treatment Not on file documented as of this encounter Procedures Procedure Name Priority Date/Time Associated Diagnosis Comments HEPATIC FUNCTION PANEL Routine 12/07/2014 4:31 PM CDT documented in this encounter Results * (ABNORMAL) HEPATIC FUNCTION PANEL (12/07/2014 4:31 PM CDT) TOTAL PROTEIN 5.8(L) 6.1 - 8.1 g/dL [facility] ALBUMIN 3.9 3.6 - 5.1 g/dL [facility] GLOBULIN 1.9 1.9 - 3.7 g/dL (calc) [facility] ALBUMIN/GLOBULIN RATIO 2.1 1.0 - 2.5 (calc) [facility] BILIRUBIN TOTAL 0.3 0.2 - 1.2 mg/dL [facility] BILIRUBIN DIRECT 0.0 < OR = 0.2 mg/dL [facility] BILIRUBIN INDIRECT 0.3 0.2 - 1.2 mg/dL (calc) [facility] ALKALINE PHOSPHATASE 39 33 - 130 U/L [facility] AST 17 10 - 35 U/L [facility]. [facility] ALT 11 6 - 29 U/L [facility] Comment: Test Performed at: [facility] [place] [address] [place], [place] ??[address] SHAY WARREN DO,MPH 12/07/2014 4:31 PM CDT Didi Roberto MD CHEMISTRY ORDERABLES [facility] [address] [place] [address] documented in this encounter Visit Diagnoses Diagnosis Medication management- Primary Encounter for other specified aftercare documented in this encounter Care Teams Landscaping Specialist Relationship Specialty Start Date End Date Casa Encarnacion MD [address] [place] [phone] PCP - General Internal Medicine 10/12/14 documented as of this encounter
--- OUTSIDE RECORDS SUMMARY | 2024-09-08 20:45 | XMS_ITS | Encounter Summary ---
Author Organization [facility] Address [address] [place] [address] Care Team Providers Care Microbiology Professor Name Role Phone Casa Encarnacion MD Primary Care Provider + Reason for Visit * Reason Onset Date Comments Medication Question 11/13/2015 Encounter Details Date Type Department Care Team (Late st Contact Info) Description 11/13/2015 Telephone [facility] CODING AND REIMBURSEMENT SPECIALIST - [facility] [address] [facility], [address] [place] [address] Didi Roberto MD [address] [place] [address] Medication Question Social History Tobacco [...] Telephone Encounter - Lydia Escamilla RN - 11/13/2015 11:15 AM CST Patient asking what are results of culture - preliminary findings show normal. Patient states the 1Diflucan has helped but will take the second one today. Advised her we will call with final cultureresults. ICAL TRIAL HEAD documented in this encounter Plan of Treatment Not on file documented as of this encounter Visit Diagnoses Not on filedocumented in this encounter Care Teams Microbiology Professor Relationship Specialty Start Date End Date Casa Encarnacion MD [address] [place] [address] PCP - General Internal Medicine 10/12/14 documented as of this encounter
--- OUTSIDE RECORDS SUMMARY | 2024-09-08 20:45 | XMS_ITS | Encounter Summary ---
Author Organization [facility] Address [address] [place] [address] Care Team Providers Care Stage Producer Name Role Phone Casa Encarnacion MD Primary Care Provider + Reason for Visit * Reason Onset Date Comments Medication Refill 08/07/2015 Encounter Details Date Type Department Care Team (Late st Contact Info) Description 08/07/[address] [facility] DIE ATTACHER - [facility] [address] [facility], [address] [place] [address] Didi Roberto MD [address] [place] [address] Medication Refill Social History Tobacco Use Types Packs/Day Years [...] as of this encounter Visit Diagnoses Diagnosis Chronic vulvitis- Primary Vaginitis and vulvovaginitis, unspecified Vaginal atrophy Postmenopausal atrophic vaginitis Vulvar atrophy Atrophy of vulva documented in this encounter Care Teams Stage Producer Relationship Specialty Start Date End Date Casa Encarnacion MD [address] [place] [address] PCP - General Internal Medicine 10/12/14 documented as of this encounter
--- OUTSIDE RECORDS SUMMARY | 2024-09-08 20:45 | XMS_ITS | Encounter Summary ---
Author Organization [employer] Address [address] [place] [address] Care Team Providers Care Primary Care Nurse Practitioner Name Role Phone Casa Encarnacion MD Primary Care Provider + Encounter Details Date Type Department Care Team (Late st Contact Info) Description 03/01/2015 Orders Only [facility] [address] [place] [address] [place] [address] Vasquez Feng Vulvitis Social History Tobacco Use Types Packs/Day [...] Associated Diagnosis Comments FUNGUS CULTURE, OTHER Routine 03/01/2015 3:41 PM CDT Vulvitis documented in this encounter Results * FUNGUS CULTURE, OTHER (03/01/2015 3:41 PM CDT) CULTURE No fungus isolated. ALEX METHOD AEROBIC CULTURE 03/30/2015 2:15 PM CDT [facility] Genital (Vaginal) Collection / Unknown 03/01/2015 3:41 PM CDT 03/01/2015 9:07 PM CDT Didi Roberto MD MICROBIOLO GY - GENERAL ORDERABLES [employer] [facility] CLIA# [id number] [address] [place] [address] documented in this encounter Visit Diagnoses Diagnosis Vulvitis Vaginitis and vulvovaginitis, unspecified documented in this encounter Care Teams Primary Care Nurse Practitioner Relationship Specialty Start Date End Date Casa Encarnacion MD [address] [place] [address] PCP - General Internal Medicine 10/12/14 documented as of this encounter
--- OUTSIDE RECORDS SUMMARY | 2024-09-08 20:45 | XMS_ITS | Encounter Summary ---
Author Organization [facility] Address [address] [place] [address] Care Team Providers Care Caltrans Equipment Operator Name Role Phone Casa Encarnacion MD Primary Care Provider + Reason for Visit * Reason Onset Date Comments Question 11/27/2015 Encounter Details Date Type Department Care Team (Late st Contact Info) Description 11/27/2015 Telephone [facility] ENVIRONMENTAL COMPLIANCE SPECIALIST - [facility] [address] [facility], [address] [place] [address] Didi Roberto MD [address] [place] [address] Question Social History Tobacco Use [...] Telephone Encounter - Lydia Escamilla RN - 11/27/2015 12:17 PM CDT Patient states her daughters were wondering why she needs specialist. We reviewed the same information we went over last week. States she will call today. documented in this encounter Plan of Treatment Not on file documented as of this encounter Visit Diagnoses Not on filedocumented in this encounter Care Teams Caltrans Equipment Operator Relationship Specialty Start Date End Date Casa Encarnacion MD [address] [phone] PCP - General Internal Medicine 10/12/14 documented as of this encounter
--- OUTSIDE RECORDS SUMMARY | 2024-09-08 20:45 | XMS_ITS | Encounter Summary ---
Author Organization [facility] Address [address] [place] [address] Care Team Providers Care Torpedo Worker Name Role Phone Casa Encarnacion MD Primary Care Provider + Reason for Visit * Reason Onset Date Comments Vaginal Pain 05/10/2015 Encounter Details Date Type Department Care Team (Late st Contact Info) Description 05/10/2015 Telephone [facility] OILING MACHINE OPERATOR - [facility] [address] [facility], [address] [place] [address] Demetrice Márquez RN Vaginal Pain [...] Telephone Encounter - Demetrice Cabral RN - 05/10/2015 1:15 PM CDT Pt made aware and will try to be seen somewhere closer to her home for this episode. * Telephone Encounter - Didi Roberto MD - 05/10/2015 1:08 PM CDT Her yeast culture in February was negative. Would like to retest again, to see if yeast are back. In the mean time, would like to hold off on treatment so that we do not get false negative results. Thanks! * Telephone Encounter - Demetrice Carbal RN - 05/10/2015 11:59 AM CDT Pt called stating her PCP prescribed Diflucan on 04/15 and the symptoms are back. (burning vagina) She says she is following all other suggestions with the creams she currently has. documented in this encounter Plan of Treatment Not on file documented as of this encounter Visit Diagnoses Not on filedocumented in this encounter Care Teams Torpedo Worker Relationship Specialty Start Date End Date Casa Encarnacion MD [address] [place] [phone] PCP - General Internal Medicine 10/12/14 documented as of this encounter
--- OUTSIDE RECORDS SUMMARY | 2024-09-08 20:45 | XMS_ITS | Encounter Summary ---
Author Organization [facility] Address [address] [place] [address] Care Team Providers Care Parish Nurse Name Role Phone Casa Encarnacion MD Primary Care Provider + Reason for Visit * Reason Onset Date Comments Medication Problem 11/07/2014 Encounter Details Date Type Department Care Team (Late st Contact Info) Description 11/07/2014 Telephone [facility] TRASH HAULER - [facility] [address] [facility], [address] [place] [address] Didi Roberto MD [address] [place] [address] Medication Problem Social History Tobacco Use Types [...] Telephone Encounter - Marilin Shah RN - 11/07/2014 2:41 PM CST Pt notified. X SECURITY ADMINISTRATOR * Telephone Encounter - Didi Roberto MD - 11/07/2014 12:10 PM CST Got notification from pharmacy that Atarax is considered high risk and may not be paid for. Will switch to Zyrtec. Please notify pt. I will send the new rx to pharmacy now. Thanks! X SECURITY ADMINISTRATOR documented in this encounter Plan of Treatment Not on file documented as of this encounter Visit Diagnoses Diagnosis Vulvitis- Primary Vaginitis and vulvovaginitis, unspecified documented in this encounter Care Teams Parish Nurse Relationship Specialty Start Date End Date Casa Encarnacion MD [address] [place] [phone] PCP - General Internal Medicine 10/12/14 documented as of this encounter
--- OUTSIDE RECORDS SUMMARY | 2024-09-08 21:06 | XMS_ITS | Encounter Summary ---
Author Organization [facility] Address [address] [place] [address] Care Team Providers Care Grocery Sacker Name Role Phone Casa Encarnacion MD Primary Care Provider [phone] Reason for Visit * Reason Comments Refill Request Encounter Details Date Type Department Care Team (Late st Contact Info) Description 05/27/2023 Refill [facility] - SETTER HELPER [address] [facility] [address] [place] [address] Aye Dao MD [address] [facility] [address] [place] [address] Refill Request Social History Tobacco [...] Description 05/24/2025 2:00 PM CDT Office Visit [facility] - SETTER HELPER [address], [facility] [address] [place] [address] Aye Dao MD [address] [facility] [address] [place] [address] documented as of this encounter Visit Diagnoses Diagnosis Vulvodynia documented in this encounter Care Teams Grocery Sacker Relationship Specialty Start Date End Date Casa Encarnacion MD PCP - General 12/12/15 documented as of this encounter
--- OUTSIDE RECORDS SUMMARY | 2024-09-08 21:06 | XMS_ITS | Encounter Summary ---
Author Organization [facility] Address [address] [place] [address] Care Team Providers Care License Inspector Name Role Phone Casa Encarnacion MD Primary Care Provider [phone] Reason for Visit * Reason Comments Refill Request Encounter Details Date Type Department Care Team (Late st Contact Info) Description 12/13/2023 Refill [facility] - BOOMSWING OPERATOR [address] [facility] [address] [place] [address] Aye Dao MD [address] [facility] [address] [place] [address] Refill Request Social History Tobacco [...] Office Visit [facility] - BOOMSWING OPERATOR [address], [facility] [address] [place] [address] Aye Dao MD [address] [facility] [address] [place] [address] documented as of this encounter Visit Diagnoses Diagnosis Vulvodynia documented in this encounter Care Teams License Inspector Relationship Specialty Start Date End Date Casa Encarnacion MD PCP - General 12/12/15 documented as of this encounter
--- OUTSIDE RECORDS SUMMARY | 2024-09-08 21:06 | XMS_ITS | Encounter Summary ---
Author Organization [facility] Address [address] [place] [address] Care Team Providers Care Postdoctoral Scholar Name Role Phone Casa Encarnacion MD Primary Care Provider [phone] Reason for Visit * Reason Onset Date Comments Med Question 09/27/2022 Results 09/27/2022 Encounter Details Date Type Department Care Team (Late st Contact Info) Description 09/27/2022 Telephone [facility] [address] [facility] [address] [place] [address] Aye Dao MD [address] [facility] [address] [place] [address] Med Question; Results Social History [...] a week or up to 2 weeks. MAN * Telephone Encounter - Thania Slater - 09/27/2022 11:09 AM CST CB: [phone] Pt had a urine culture in [place], [place] with a nurse practioner today for a possible infection. Pt says the RUBY ENGINEER told her the results would be available by early next week. She kindly asked to please let Dr. Zhao know that they will be forwarding a copy of her results to us as well. She would like to know what Dr. Zhao would like for her to do based on the results when they arrive. Thank you so much MAN documented in this encounter Plan of Treatment Upcoming Encounters Date Type Department Care Team (Late st Contact Info) Description 05/24/2025 2:00 PM CDT Office Visit [facility] - IP LITIGATION ASSOCIATE [address], [facility] [address] [place] [address] Aye Dao MD [address] [facility] [address] [place] [address] documented as of this encounter Visit Diagnoses Not on filedocumented in this encounter Care Teams Postdoctoral Scholar Relationship Specialty Start Date End Date Casa Encarnacion MD PCP - General 12/12/15 documented as of this encounter
--- OUTSIDE RECORDS SUMMARY | 2024-09-08 21:06 | XMS_ITS | Encounter Summary ---
Author Organization [facility] Address [address] [facility] [address] Care Team Providers Care Operator/Assistant Foreman Name Role Phone Casa Encarnacion MD Primary Care Provider [phone] Encounter Details Date Type Department Care Team [...] CDT Office Visit [facility] - SEXUAL ASSAULT COUNSELLOR [address] [facility] [address] [place] [address] Aye Dao MD [address] [facility] [address] [place] [address] documented as of this encounter Visit Diagnoses Not on filedocumented in this encounter Care Teams Operator/Assistant Foreman Relationship Specialty Start Date End Date Casa Encarnacion MD PCP - General 12/12/15 documented as of this encounter
--- OUTSIDE RECORDS SUMMARY | 2024-09-08 21:06 | XMS_ITS | Encounter Summary ---
Author Organization [facility] Health Address [address] [place] [address] Care Team Providers Care Clinical Physician Assistant Name Role Phone Casa Encarnacion MD Primary Care Provider [phone] Reason for Visit * Reason Comments Refill Request Encounter Details Date Type Department Care Team (Late st Contact Info) Description 08/30/2023 Refill [facility] - BOWLING PIN SETTERS INSTALLER [address] [facility] [facility] [address] [place] [address] Aye Dao MD [address] [facility] [address] [place] [address] Refill Request Social History Tobacco [...] Miscellaneous Notes * Telephone Encounter - Yanira Glavan RN - 09/02/2023 10:49 AM HAND TILE MAKER YAYO 08/2022, has a pending appointment for 09/11/2023. Refilled Gabapentin. TILE MAKER documented in this encounter Plan of Treatment Upcoming Encounters Date Type Department Care Team (Late st Contact Info) Description 05/24/2025 2:00 PM CDT Office Visit [facility] - BOWLING PIN SETTERS INSTALLER [address], [facility] 200 [place] [address] Aye Dao MD [address] [facility] [address] [place] [address] documented as of this encounter Visit Diagnoses Diagnosis Vulvodynia documented in this encounter Care Teams Clinical Physician Assistant Relationship Specialty Start Date End Date Casa Encarnacion MD PCP - General 12/12/15 documented as of this encounter
--- OUTSIDE RECORDS SUMMARY | 2024-09-08 21:06 | XMS_ITS | Encounter Summary ---
Author Organization [facility] Health Address [address] [place] [address] Care Team Providers Care Digital Media Associate Name Role Phone Casa Encarnacion MD Primary Care Provider [phone] Reason for Visit * Reason Onset Date Comments Med Question 09/24/2022 Encounter Details Date Type Department Care Team (Late st Contact Info) Description 09/24/2022 Telephone [facility] [address] [facility] [address] [place], [place] [id number] Aye Dao MD 10[address] [facility] [address] [place] [address] Med Question Social History Tobacco [...] ago. She verbalized understanding. Agrees to plan. SIZER * Telephone Encounter - Thania Slater - 09/24/2022 9:14 AM CST Pt calling to ask about her culture. She wants to know if Dr. Zhao would allow her to get it done closer to her home in [place], [place] CB: [phone] Thank you SIZER documented in this encounter Plan of Treatment Upcoming Encounters Date Type Department Care Team (Late st Contact Info) Description 05/24/2025 2:00 PM CDT Office Visit [facility] - DIRECTOR CPG [address], [facility] 200 [place] [address] Aye Dao MD [address] [place] [address] documented as of this encounter Visit Diagnoses Not on filedocumented in this encounter Care Teams Digital Media Associate Relationship Specialty Start Date End Date Casa Encarnacion MD PCP - General 12/12/15 documented as of this encounter
--- OUTSIDE RECORDS SUMMARY | 2024-09-08 21:06 | XMS_ITS | Encounter Summary ---
Author Organization [facility] Health Address [address] [place] [address] Care Team Providers Care Email Campaign Specialist Name Role Phone Casa Encarnacion MD Primary Care Provider Reason for Visit * Reason Comments Refill Request Encounter Details Date Type Department Care Team (Late st Contact Info) Description 02/05/2023 Refill [facility] - GROCERY CLERK STOCKING [address] [facility] [address] [place] [address] Aye Dao MD 1031 [facility] 400 [place] [address] Refill Request Social History Tobacco [...] on antibiotics Refilled Nystatin oil caps to [facility] documented in this encounter Plan of Treatment Upcoming Encounters Date Type Department Care Team (Late st Contact Info) Description 05/24/2025 2:00 PM CDT Office Visit [facility] - GROCERY CLERK STOCKING [address], [facility] [address] [place] [address] Aye Dao MD [address] [facility] [address] [place] [address] documented as of this encounter Visit Diagnoses Diagnosis History of candidiasis Personal history of other infectious and parasitic disease documented in this encounter Care Teams Email Campaign Specialist Relationship Specialty Start Date End Date Casa Encarnacion MD PCP - General 12/12/15 documented as of this encounter
--- OUTSIDE RECORDS SUMMARY | 2024-09-08 21:06 | XMS_ITS | Encounter Summary ---
Author Organization [facility] Health Address [address] [place] [address] Care Team Providers Care Greenkeeper Name Role Phone Casa Encarnacion MD Primary Care Provider [phone] Reason for Visit * Reason Onset Date Comments Opened In Error 06/12/2023 Encounter Details Date Type Department Care Team (Late Contact Info) Description 06/12/2023 Telephone [facility] - ORTHOPEDIC SURGEON [address], [facility] 200 [place] [address] Aye Dao MD [facility] [address] [address] Opened In Error Social History [...] CDT Office Visit [facility] - ORTHOPEDIC SURGEON [address], [facility] 200 [place] [address] Aye Dao MD [address] [facility] 400 [place] [address] documented as of this encounter Visit Diagnoses Not on filedocumented in this encounter Care Teams Greenkeeper Relationship Specialty Start Date End Date Casa Encarnacion MD PCP - General 12/12/15 documented as of this encounter
--- OUTSIDE RECORDS SUMMARY | 2024-09-08 21:06 | XMS_ITS | Encounter Summary ---
Author Organization [facility] Health Address [address] [facility] [place] [address] Care Team Providers Care Aircraft Instrument Mechanic Name Role Phone Casa Encarnacion MD Primary Care Provider [phone] Reason for Visit * Reason Onset Date Comments Medication Request 08/09/2024 Encounter Details Date Type Department Care Team (Late st Contact Info) Description 08/09/2024 Telephone [facility] - DOMESTIC TECHNICIAN 1031 [facility] 200 [place] [address] Aye Dao MD 10[address] [facility] 400 [place] [address] Medication Request Social History Tobacco [...] Marilin Alvarado RN - 08/09/2024 2:51 PM FARM LOAN INSPECTOR Return call to patient Gabapentin refill sent today Agreeable and grateful LOAN INSPECTOR * Telephone Encounter - Hannah Mckeon - 08/09/2024 8:46 AM CST Pt is calling the office to request a refill from Dr Dao Pt CB# [phone] LOAN INSPECTOR documented in this encounter Plan of Treatment Upcoming Encounters Date Type Department Care Team (Late st Contact Info) Description 05/24/2025 2:00 PM CDT Office Visit [facility] - DOMESTIC TECHNICIAN [address] [facility] 200 [place] [address] Aye Dao MD 10[address] [facility] [address] [place] [address] documented as of this encounter Visit Diagnoses Not on filedocumented in this encounter Care Teams Aircraft Instrument Mechanic Relationship Specialty Start Date End Date Casa Encarnacion MD PCP - General 12/12/15 documented as of this encounter
--- OUTSIDE RECORDS SUMMARY | 2024-09-08 21:06 | XMS_ITS | Encounter Summary ---
Author Organization [facility] Health Address [address] [facility] [place] [address] Care Team Providers Care Cuff Slitter Name Role Phone Casa Encarnacion MD Primary Care Provider [phone] Reason for Visit * Reason Onset Date Comments Question 09/16/2022 Encounter Details Date Type Department Care Team (Late st Contact Info) Description 09/16/2022 Telephone [facility] [address] [place] [address] Aye Dao MD 1031 [facility] 400 [place] [address] Question Social History Tobacco Use [...] Marilin Alvarado RN - 09/16/2022 3:13 PM DIESEL POWER MECHANIC Spoke to patient The test she would [...] returns like she experienced last week Agreeable EL POWER MECHANIC * Telephone Encounter - Emi Rutledge - 09/16/2022 12:17 PM CST Pt calling to get the nurse to call her back Please contact CB# [phone] EL POWER MECHANIC documented in this encounter Plan of Treatment Upcoming Encounters Date Type Department Care Team (Late st Contact Info) Description 05/24/2025 2:00 PM CDT Office Visit [facility] - RADIOACTIVE WASTE DISPOSAL DISPATCHER [address] [facility] [address] [place] [address] Aye Dao MD 10[address] [facility] [address] [place] [address] documented as of this encounter Visit Diagnoses Not on filedocumented in this encounter Care Teams Cuff Slitter Relationship Specialty Start Date End Date Casa Encarnacion MD PCP - General 12/12/15 documented as of this encounter
--- OUTSIDE RECORDS SUMMARY | 2024-09-08 21:06 | XMS_ITS | Encounter Summary ---
Author Organization [facility] Health Address [address] [place] [address] Care Team Providers Care Aging Box Hand Name Role Phone Casa Encarnacion MD Primary Care Provider [phone] Reason for Visit * Reason Comments Refill Request Encounter Details Date Type Department Care Team (Late st Contact Info) Description 08/09/2024 Refill [facility] - JIG BORING MACHINE SET UP OPERATOR [address] [facility] [address] [place] [address] Aye Dao MD 1031 [facility] 400 [place] [address] Refill Request Social History Tobacco [...] Marilin Alvarado RN - 08/09/2024 2:03 PM CERTIFIED PATHOLOGY ASSISTANT Last seen 06/01/2024 Per that note: Vulvodynia Gabapentin 300 mg in the morning, 300 mg at lunch 600 mg at bedtime. Script for 600 mg TID sent in so she can add the additional if needed. Rx refill sent through [facility] after pharmacy fax'd request IFIED PATHOLOGY ASSISTANT documented in this encounter Plan of Treatment Upcoming Encounters Date Type Department Care Team (Late st Contact Info) Description 05/24/2025 2:00 PM CDT Office Visit [facility] - JIG BORING MACHINE SET UP OPERATOR [address], [facility] 200 [place] [address] Aye Dao MD 10[address] [facility] [address] [place] [address] documented as of this encounter Visit Diagnoses Diagnosis Vulvodynia documented in this encounter Care Teams Aging Box Hand Relationship Specialty Start Date End Date Casa Encarnacion MD PCP - General 12/12/15 documented as of this encounter
--- OUTSIDE RECORDS SUMMARY | 2024-09-08 21:06 | XMS_ITS | Encounter Summary ---
Author Organization [facility] Health Address [address] [facility] [place] [address] Care Team Providers Care Cut And Cover Line Worker Name Role Phone Casa Encarnacion MD Primary Care Provider [phone] Reason for Visit * Reason Onset Date Comments Encounter Opened In Error 03/26/2023 Encounter Details Date Type Department Care Team (Late Contact Info) Description 03/26/2023 Telephone [facility] - TOWNSHIP SUPERVISOR 10[address] [facility] 200 [place] [address] Aye Dao MD [address] [facility] 400 [place] [address] Encounter Opened In Error Social [...] Description 05/24/2025 2:00 PM CDT Office Visit [facility] - TOWNSHIP SUPERVISOR [address], [place] [place] [address] Aye Dao MD [address] [facility] 400 [place] [address] documented as of this encounter Visit Diagnoses Not on filedocumented in this encounter Care Teams Cut And Cover Line Worker Relationship Specialty Start Date End Date Casa Encarnacion MD PCP - General 12/12/15 documented as of this encounter
--- OUTSIDE RECORDS SUMMARY | 2024-09-08 21:06 | XMS_ITS | Encounter Summary ---
Author Organization [facility] Address [address] [facility] [place] [address] Care Team Providers Care Pattern Room Attendant Name Role Phone Casa Encarnacion MD Primary Care Provider [phone] Encounter Details Date Type Department Care Team [...] CDT Office Visit [facility] - VOCATIONAL TECHNICAL EDUCATION DIRECTOR [address] [facility] 200 [place] [address] Aye Dao MD [address] [facility] 400 [place] [address] documented as of this encounter Visit Diagnoses Not on filedocumented in this encounter Care Teams Pattern Room Attendant Relationship Specialty Start Date End Date Casa Encarnacion MD PCP - General 12/12/15 documented as of this encounter
--- OUTSIDE RECORDS SUMMARY | 2024-09-08 21:06 | XMS_ITS | Encounter Summary ---
Author Organization [facility] Health Address [address] [place] [address] Care Team Providers Care Jewelry Jobber Name Role Phone Casa Encarnacion MD Primary Care Provider [phone] Reason for Visit * Reason Onset Date Comments Pain Vaginal 05/19/2023 Concerns 05/19/2023 Encounter Details Date Type Department Care Team (Late st Contact Info) Description 05/19/2023 Telephone [facility] - ELECTRICAL ENGINEERING MANAGER [address] [facility] [address] [place] [address] Aye Dao MD 10[address] [facility] [address] [place] [address] Pain Vaginal; Concerns Social History [...] with patient tomorrow * Telephone Encounter - Naa Munoz - 05/19/2023 4:10 PM CDT PT calling wanting to add that she forgot to let nurse know that she also feels pressure. PT requesting a call back. PT CB# [phone] * Telephone Encounter - Marilin Alvarado RN [...] like to speak with nurse. PT CB# [phone] documented in this encounter Plan of Treatment Upcoming Encounters Date Type Department Care Team (Late st Contact Info) Description 05/24/2025 2:00 PM CDT Office Visit [facility] - ELECTRICAL ENGINEERING MANAGER [address], [facility] 200 [place] [address] Aye Dao MD [address] [facility] [address] [place] [address] documented as of this encounter Visit Diagnoses Not on filedocumented in this encounter Care Teams Jewelry Jobber Relationship Specialty Start Date End Date Casa Encarnacion MD PCP - General 12/12/15 documented as of this encounter
--- OUTSIDE RECORDS SUMMARY | 2024-09-08 21:06 | XMS_ITS | Encounter Summary ---
Author Organization [facility] Address [address] [facility] [place] [address] Care Team Providers Care Inspector Of Dredging Name Role Phone Casa Encarnacion MD Primary Care Provider [phone] Encounter Details Date Type Department Care Team [...] CDT Office Visit [facility] - TRACTOR ENGINE MECHANIC [address] [facility] 200 [place] [address] Aye Dao MD [address] [facility] 400 [place] [address] documented as of this encounter Visit Diagnoses Not on filedocumented in this encounter Care Teams Inspector Of Dredging Relationship Specialty Start Date End Date Casa Encarnacion MD PCP - General 12/12/15 documented as of this encounter
--- OUTSIDE RECORDS SUMMARY | 2024-09-08 21:06 | XMS_ITS | Encounter Summary ---
Author Organization [facility] Health Address [address] [facility] [place] [address] Care Team Providers Care Biological Technician Name Role Phone Casa Encarnacion MD Primary Care Provider [phone] Reason for Visit * Reason Onset Date Comments Refill Request 11/13/2023 Encounter Details Date Type Department Care Team (Late st Contact Info) Description 11/13/2023 Telephone [facility] - CYTOGENETIC TECHNICIAN [address] [facility] [address] [place] [address] Aye Dao MD 10[address] [facility] [address] [place] [address] Refill Request Social History Tobacco [...] Marilin Alvarado RN - 11/13/2023 9:51 AM SSRS REPORT DEVELOPER Spoke with patient We will send the refill today to [facility] for the Nystatin vaginal capsules #30 Patient last seen Aug 2022 (was not able to keep her Sep 2023 visit) We will check in with Dr Leonard It may be that patient will need to be seen before future refills authorized REPORT DEVELOPER * Telephone Encounter - Rashida Santoyo - 11/13/2023 9:30 AM CST Pt called and stated she is needing a refill on prescription nystatin. CB [phone] REPORT DEVELOPER documented in this encounter Plan of Treatment Upcoming Encounters Date Type Department Care Team (Late st Contact Info) Description 05/24/2025 2:00 PM CDT Office Visit [facility] - CYTOGENETIC TECHNICIAN [address] [facility] [address] [place] [address] Aye Dao MD 10[address] [facility] 400 [place] [address] documented as of this encounter Visit Diagnoses Diagnosis History of candidiasis Personal history of other infectious and parasitic disease documented in this encounter Care Teams Biological Technician Relationship Specialty Start Date End Date Caas Encarnacion MD PCP - General 12/12/15 documented as of this encounter
--- OUTSIDE RECORDS SUMMARY | 2024-09-08 21:06 | XMS_ITS | Encounter Summary ---
Author Organization [facility] Health Address [address] [facility] [place] [address] Care Team Providers Care Road Crew Member Name Role Phone Casa Encarnacion MD Primary Care Provider [phone] Reason for Visit * Reason Onset Date Comments Med Question 07/30/2023 Encounter Details Date Type Department Care Team (Late st Contact Info) Description 07/30/2023 Telephone [facility] - NURSE OBGYN 1031 [facility] 200 [place] [address] Aye Dao MD 1031 [facility] 400 [place] [address] Med Question Social History Tobacco [...] Marilin Alvarado RN - 07/30/2023 9:27 AM TRANSFORMATION COACH Notified patient's daughter the refill of the nystatin now sent to [facility] pharmacy SFORMATION COACH * Telephone Encounter - Aye Dao MD - 07/30/2023 9:25 AM TRANSFORMATION COACH Refill sent into [facility] SFORMATION COACH * Telephone Encounter - Dipti Shah - 07/30/2023 9:08 AM CST PT is calling for a refill of NYSTATIN SFORMATION COACH documented in this encounter Plan of Treatment Upcoming Encounters Date Type Department Care Team (Late st Contact Info) Description 05/24/2025 2:00 PM CDT Office Visit [facility] Group - NURSE OBGYN 1031 [facility] [address] [place] [address] Aye Dao MD 10[address] [facility] 400 [place] [address] documented as of this encounter Visit Diagnoses Diagnosis History of candidiasis Personal history of other infectious and parasitic disease documented in this encounter Care Teams Road Crew Member Relationship Specialty Start Date End Date Casa Encarnacion MD PCP - General 12/12/15 documented as of this encounter
--- OUTSIDE RECORDS SUMMARY | 2024-09-08 21:06 | XMS_ITS | Encounter Summary ---
Author Organization [facility] Health Address [address] [place] [address] Care Team Providers Care Creative Writing English Professor Name Role Phone Casa Encarnacion MD Primary Care Provider [phone] Reason for Visit * Reason Onset Date Comments Refill Request 02/10/2024 Encounter Details Date Type Department Care Team (Late st Contact Info) Description 02/10/2024 Telephone [facility] - ENVELOPE SEALER 1031 [facility] 200 [place] [address] Aye Dao MD [address] [facility] 400 [place] [address] Refill Request Social History Tobacco [...] PM CDT Nystatin vaginal capsules refill Through [facility] Will hope to see Dr Leonard [...] get a refill on her nystatin,. CB# [phone] documented in this encounter Plan of Treatment Upcoming Encounters Date Type Department Care Team (Late st Contact Info) Description 05/24/2025 2:00 PM CDT Office Visit [facility] - ENVELOPE SEALER 1031 [facility] 200 [place] [address] Aye Dao MD [address] [facility] 400 [place] [address] documented as of this encounter Visit Diagnoses Diagnosis History of candidiasis Personal history of other infectious and parasitic disease documented in this encounter Care Teams Creative Writing English Professor Relationship Specialty Start Date End Date Casa Encarnacion MD PCP - General 12/12/15 documented as of this encounter
--- OUTSIDE RECORDS SUMMARY | 2024-09-08 21:06 | XMS_ITS | Encounter Summary ---
Author Organization [facility] Health Address [address] [facility] [place] [address] Care Team Providers Care Ordnance Artificer Helper Name Role Phone Casa Encarnacion MD Primary Care Provider [phone] Reason for Visit * Reason Comments Refill Request Encounter Details Date Type Department Care Team (Late st Contact Info) Description 05/06/2023 Refill [facility] - HIGH SCHOOL ART TEACHER [address] [facility] [address] [place] [address] Aye Dao MD 1031 [facility] 400 [place] [address] Refill Request Social History Tobacco [...] CDT Compounded nystatin vaginal capsules Refilled through [facility] documented in this encounter Plan of Treatment Upcoming Encounters Date Type Department Care Team (Late st Contact Info) Description 05/24/2025 2:00 PM CDT Office Visit [facility] - HIGH SCHOOL ART TEACHER [address], [facility] 200 [place] [address] Aye Dao MD [address] [facility] 400 [place] [address] documented as of this encounter Visit Diagnoses Diagnosis History of candidiasis Personal history of other infectious and parasitic disease documented in this encounter Care Teams Ordnance Artificer Helper Relationship Specialty Start Date End Date Casa Encarnacion MD PCP - General 12/12/15 documented as of this encounter
--- OUTSIDE RECORDS SUMMARY | 2024-09-08 21:06 | XMS_ITS | Patient Health Summary ---
Author Organization [facility] Address [address] [place] [address] Care Team Providers Care Adhesive Bandage Machine Operator Name Role Phone Casa Encarnacion MD Primary Care Provider [phone] Note from [facility],non-owned Affiliates and Associated Physician Practices is amultiple site organization consisting of ambulatory clinics and hospital sitesin [place], [place], [place] and [place]. This disclosure is being madepursuant to the Care Everywhere program and may not contain all information available regarding this patient. Last updated 18.[facility] Allergies * Seasonal(Other) -Low Criticality Medications * [...] PM CDT Pulse 62 11/05/2016 8:34 AM WELLNESS INSTRUCTOR Temperature 36.5 ??C (97.7 ??F) 06/01/2024 12:55 [...] 03/27/2017) * CULTURE YEAST WITH DIRECT FLUORESCENT MODESAT(Performed 11/05/2016) * WET PREP - POINT OF [...] [facility] Comment: ??CULTURE, YEAST, W/IDENTIFICATION ?Micro Number: ?[id number] ??Test Status: ? Final ??Specimen Source: ?? Vulva ??Specimen Quality: ??Adequate ??Result: ?No fungal growth at 2 Weeks Test Performed at: [email or web address] ??[id number] ZORAIDA TYLER MD Microbiology ENTIRE VULVA / Unknown 04/12/2021 10:59 AM CDT 04/13/2021 3:14 AM CDT Elisa Fisher APRN-FRONT DESK ADMIN LAB - MICRO BIOLOGY ORDERABLES [address] [address] * LAB RESULTS ORDER (06/28/2019 12:31 PM CDT) Narrative 06/28/2019 12:31 PM CDT Ordered by an unspecified provider. Scanned Document LAB - THERAPEUTIC DR MCCRAY MONITORING ORDERABLES * (ABNORMAL) CULTURE URINE (05/25/2019 11:13 AM CDT) Only the most recent of7 resultswithin the time period is included. Culture (A) [facility] Comment: ??CULTURE, URINE, ROUTINE ?MICRO NUMBER: ?[id number] ??TEST STATUS: ? FINAL ??SPECIMEN SOURCE: ?? [...] cefuroxime, cephalexin ?and loracarbef. Test Performed at: [email or web address] ??[id number] ZORAIDA TYLER MD Urine URINE SPECIMEN OBTAINED BY CLEAN CATCH PROCEDURE / Unknown 05/25/2019 11:13 AM CDT 05/25/2019 11:14 AM CDT Aye Dao MD LAB - MICROBIOLOGY ORDERABLES [address] [address] * SUSCEPTIBILITY YEAST (05/12/2019 2:12 PM CDT) [...] of this test have been determined by [employer] [facility] [employer]. This test not be used for diagnosis without confirmation by other medically established means. Test Performed at: [employer] [facility], [facility] [address] [place] [address] ??[id number] Tony PATTERSON 05/12/2019 2:12 PM CDT 05/12/2019 2:12 PM CDT Aye Dao MD LAB - MICROBIOLOGY ORDERABLES Performing Organization Address [facility] [place]/State/ZIP Co de Phone Number [address] [address] * (ABNORMAL) CULTURE YEAST WITH DIRECT FLUORESCENT MODESTA (05/12/2019 2:12 PM CDT) Only the most recent of4 resultswithin the time period is included. Smear (A) [facility] Comment: ??CULTURE, YEAST, W/DIRECT FLUORESCENT MODESTA ?MICRO NUMBER: ?[id number] ??TEST STATUS: ? FINAL ??SPECIMEN SOURCE: ?? WOUND (SITE NOT SPECIFIED) ??SPECIMEN QUALITY: ??ADEQUATE ??SMEAR: ? No fungal elements seen. ??RESULT: ?Bambi albicans Test Performed at: [email or web address] ??[id number] ZORAIDA TYLER MD 05/12/2019 2:12 PM CDT 05/12/2019 2:12 PM CDT Aye Dao MD LAB - MICROBIOLOGY ORDERABLES [facility] [address] [place] [address] * (ABNORMAL) CULTURE URINE COMPREHENSIVE (03/27/2017 1:53 PM CDT) Culture SEE NOTE(A) [facility] ([facility] Comment: ??CULTURE, URINE, SPECIAL ?MICRO NUMBER: ?[id number] ??TEST STATUS: ? FINAL ??SPECIMEN SOURCE: ?? [...] susceptibility to parenteral cefazolin. Test Performed at: [facility] ??[id number] ZORAIDA TYLER MD 03/27/2017 1:53 PM CDT 03/27/2017 11:00 PM CDT Aye Dao MD LAB - MICROBIOLOGY ORDERABLES [facility] ([facility] * FLUID - POCT (AMB) [facility] (11/05/2016) Only the most recent of2 resultswithin the time period is included. pH Vaginal 4.5 [facility] Vaginal swab (specimen) 11/05/2016 Aye Dao MD LAB - POINT OF CAR E ORDERABLES [facility] * WET PREP - POINT OF CARE (AMB) U (11/05/2016) Only the most recent of2 resultswithin the time period is included. pH Wet Prep 4.5 [facility] Yeast Wet Prep neg [facility] Trichomonas Wet Prep neg [facility] Bacteria Wet Prep neg [facility] Whiff Test neg [facility] 11/05/2016 Aye Dao MD LAB - POINT OF CAR E ORDERABLES Performing Organization Address City/[facility]/ZIP Co de Phone Number [facility] * FUNGUS MODESTA - POINT OF CARE (AMB) U (11/05/2016) Only the most recent of2 resultswithin the time period is included. MODESTA Prep negt ON [facility] OF [facility] Fluid specimen (specimen) 11/05/2016 Aye Dao MD LAB - POINT OF CAR E ORDERABLES [facility] Care Teams Adhesive Bandage Machine Operator Relationship Specialty Start Date End Date Casa Encarnacion MD PCP - General 12/12/15
--- OUTSIDE RECORDS SUMMARY | 2024-09-08 21:06 | XMS_ITS | Encounter Summary ---
Author Organization [facility] Health Address [address] [place] [address] Care Team Providers Care Manager Internship Name Role Phone Casa Encarnacion MD Primary Care Provider Reason for Visit * Reason Onset Date Comments Refill Request 05/05/2024 Encounter Details Date Type Department Care Team (Late st Contact Info) Description 05/05/2024 Telephone [facility] - SCRAP CHARGER [address] [facility] [facility] [address] [place] [address] Aye Dao MD [address] [facility] [address] [place] [address] Refill Request Social History Tobacco [...] is asking for enough until that appt. [facility] C/B [phone] documented in this encounter Plan of Treatment Upcoming Encounters Date Type Department Care Team (Late st Contact Info) Description 05/24/2025 2:00 PM CDT Office Visit [facility] - SCRAP CHARGER [address] [facility] [address] [place] [address] Aye Dao MD [address] [facility] [address] [place] [address] documented as of this encounter Visit Diagnoses Diagnosis History of candidiasis Personal history of other infectious and parasitic disease documented in this encounter Care Teams Manager Internship Relationship Specialty Start Date End Date Casa Encarnacion MD PCP - General 12/12/15 documented as of this encounter
--- OUTSIDE RECORDS SUMMARY | 2024-09-08 21:06 | XMS_ITS | Encounter Summary ---
Author Organization [facility] Address [address] [place] [address] Care Team Providers Care Medical Language Specialist Name Role Phone Casa Encarnacion MD Primary Care Provider [phone] Reason for Visit * Reason Onset Date Comments Vaginal Problem 05/20/2023 Encounter Details Date Type Department Care Team (Late st Contact Info) Description 05/20/2023 Telephone [facility] - POLYSOM TECH [address] [facility] [address] [place] [address] Aye Dao MD [address] [facility] [address] [place] [address] Vaginal Problem Social History Tobacco [...] of vaginal burning, urgency and pressure. CB: [phone] Thank you so much documented in this encounter Plan of Treatment Upcoming Encounters Date Type Department Care Team (Late st Contact Info) Description 05/24/2025 2:00 PM CDT Office Visit [facility] - POLYSOM TECH [address], [facility] [address] [place] [address] Aye Dao MD [address] [facility] [address] [place] [address] documented as of this encounter Visit Diagnoses Not on filedocumented in this encounter Care Teams Medical Language Specialist Relationship Specialty Start Date End Date Casa Encarnacion MD PCP - General 12/12/15 documented as of this encounter
--- OUTSIDE RECORDS SUMMARY | 2024-09-08 21:06 | XMS_ITS | Clinical Summary ---
Author Organization [facility] Address [address] [facility] [place] [address] Care Team Providers Care Shredder Tender Peat Name Role Phone Casa Encarnacion MD Primary Care Provider [phone] Source Comments [facility],non-owned Affiliates and Associated Physician Practices is amultiple site organization consisting of ambulatory clinics and hospital sitesin [place], [place], [place] and [place]. This disclosure is being madepursuant to the Care Everywhere program and may not contain all information available regarding this patient. Last updated 18.[facility] Allergies Active Allergy Reactions Criticality Noted Date [...] be different from the original. Patient uses [employer]. Phone number [phone] Fax number [phone] Problem Noted Date Diagnosed Date Acute ischemic [...] Description 08/09/2024 Refill [facility] - AUTO PAINTER HELPER [address], [address] [place] [address] Aye Dao MD Refill Request 08/09/2024 Telephone [facility] - AUTO PAINTER HELPER [address] [place] [address] Aye Dao MD Medication Request [...] PM CDT Pulse 62 11/05/2016 8:34 AM FAST FOOD SHIFT SUPERVISOR Temperature 36.5 ??C (97.7 ??F) 06/01/2024 12:55 [...] CDT Office Visit [facility] - AUTO PAINTER HELPER [address], [address] [place] [address] Aye Dao MD [address] [place] [address] Health Maintenance Due Date Last [...] age to complete this topic Care Teams Shredder Tender Peat Relationship Specialty Start Date End Date Casa Encarnacion MD PCP - General 12/12/15
--- OUTSIDE RECORDS SUMMARY | 2024-09-08 21:06 | XMS_ITS | Encounter Summary ---
Author Organization [facility] Health Address [address] [place] [address] Care Team Providers Care Injury/Safety Hazard Assessment Name Role Phone Casa Encarnacion MD Primary Care Provider [phone] Reason for Visit * Reason Comments Refill Request Encounter Details Date Type Department Care Team (Late st Contact Info) Description 04/01/2024 Refill [facility] - PECAN SHELLER [address] [facility] [address] [place] [address] Aye Dao MD [address] [facility] [address] [place] [address] Refill Request Social History Tobacco [...] 2:00 PM CDT Office Visit [facility] - PECAN SHELLER [address], [facility] [address] [place] [address] Aye Dao MD [address] [facility] [address] [place] [address] documented as of this encounter Visit Diagnoses Diagnosis Vulvodynia documented in this encounter Care Teams Injury/Safety Hazard Assessment Relationship Specialty Start Date End Date Casa Encarnacion MD PCP - General 12/12/15 documented as of this encounter
--- OUTSIDE RECORDS SUMMARY | 2024-09-08 21:06 | XMS_ITS | Encounter Summary ---
Author Organization [facility] Health Address [address] [place] [address] Care Team Providers Care Computer Forensics Examiner Name Role Phone Casa Encarnacion MD Primary Care Provider [phone] Reason for Visit * Reason Comments Follow-up Encounter Details Date Type Department Care Team (Late st Contact Info) Description 06/01/2024 1:00 PM CDT Office Visit [facility] - AGRI BUSINESS AGENT [address] [facility] 200 [place] [address] Aye Dao MD [address] [facility] [address] [place] [address] Vulvodynia (Primary Dx); History of [...] nightly while on antibiotics Refills sent into [facility]. F/U in 12 months Per patient request, talked with both daughters about her conditions and explained treatment plan. documented in this encounter Plan of Treatment Upcoming Encounters Date Type Department Care Team (Late st Contact Info) Description 05/24/2025 2:00 PM CDT Office Visit [facility] - AGRI BUSINESS AGENT [address], [facility] 200 [place] [address] Aye Dao MD [address] [facility] [address] [place] [address] documented as of this encounter Visit Diagnoses Diagnosis Vulvodynia- Primary History of candidiasis Personal history of other infectious and parasitic disease documented in this encounter Care Teams Computer Forensics Examiner Relationship Specialty Start Date End Date Casa Encarnacion MD PCP - General 12/12/15 documented as of this encounter
--- OUTSIDE RECORDS SUMMARY | 2024-09-08 21:06 | XMS_ITS | Referral Summary ---
Author Organization [facility] Address [address] [facility] [place] [address] Care Team Providers Care Doorperson Or Luggage Porter Name Role Phone Casa Encarnacion MD Primary Care Provider [phone] Source Comments [facility],non-owned Affiliates and Associated Physician Practices is amultiple site organization consisting of ambulatory clinics and hospital sitesin [place], [place], [place] and [place]. This disclosure is being madepursuant to the Care Everywhere program and may not contain all information available regarding this patient. Last updated 18.[facility] Encounters Date Type Department Care Team Description 08/09/2024 Refill [facility] - 911 EMERGENCY DISPATCHER [address], [address] [place] [address] Aye Dao MD Refill Request 08/09/2024 Telephone [facility] - 911 EMERGENCY DISPATCHER [address], [address] [place] [address] Aye Dao MD Medication Request [...] be different from the original. Patient uses [employer]. Phone number [phone] Fax number [phone] Problem Noted Date Diagnosed Date Acute ischemic [...] PM CDT Pulse 62 11/05/2016 8:34 AM SUPERVISOR PUMPING Temperature 36.5 ??C (97.7 ??F) 06/01/2024 12:55 [...] CDT Office Visit [facility] - 911 EMERGENCY DISPATCHER [address], [address] [place] [address] Aye Dao MD [address] [place] [address] Care Teams Doorperson Or Luggage Porter Relationship Specialty Start Date End Date Casa Encarnacion MD PCP - General 12/12/15
--- OUTSIDE RECORDS SUMMARY | 2024-09-08 21:06 | XMS_ITS | Encounter Summary ---
Author Organization [facility] Address [address] [facility] [place] [address] Care Team Providers Care Riveter Helper Name Role Phone Casa Encarnacion MD Primary Care Provider [phone] Reason for Visit * Reason Onset Date Comments Question 05/06/2024 Encounter Details Date Type Department Care Team (Late st Contact Info) Description 05/06/2024 Telephone [facility] - JACK OF ALL TRADES [address] [facility] [address] [place] [address] Aye Dao MD [address] [facility] [address] [place] [address] Question Social History Tobacco Use [...] CDT Return call to patient Confirmed that [facility] received the script for nystatin from Dr Leonard yesterday She can contact [facility] if she does not hear from them today for payment and delivery options of the Nystatin Patient states she is planning on the Dr Leonard follow up appointment scheduled for 06/01/2024 * Telephone Encounter - Emi Rutledge - 05/06/2024 8:12 AM CDT Pt calling nto make sure her RX (Nystation) has been called into the [place] [facility] Please contact [facility] CB# [phone] . documented in this encounter Plan of Treatment Upcoming Encounters Date Type Department Care Team (Late st Contact Info) Description 05/24/2025 2:00 PM CDT Office Visit [facility] - JACK OF ALL TRADES [address] [facility] 200 [place] [address] Aye Dao MD [address] [facility] [address] [place] [address] documented as of this encounter Visit Diagnoses Not on filedocumented in this encounter Care Teams Riveter Helper Relationship Specialty Start Date End Date Casa Encarnacion MD PCP - General 12/12/15 documented as of this encounter
--- OUTSIDE RECORDS SUMMARY | 2024-09-08 21:06 | XMS_ITS | Encounter Summary ---
Author Organization [facility] Health Address [address] [facility] [place] [address] Care Team Providers Care Retail Store Clerk Name Role Phone Casa Encarnacion MD Primary Care Provider [phone] Reason for Visit * Reason Onset Date Comments Refill Request 02/18/2024 Encounter Details Date Type Department Care Team (Late st Contact Info) Description 02/18/2024 Telephone [facility] - SENIOR ANDROID SOFTWARE ENGINEER [address] [facility] [address] [place] [address] Aye Dao MD [address] [facility] [address] [place] [address] Refill Request Social History Tobacco [...] need a refill of her medication. C/B [phone] documented in this encounter Plan of Treatment Upcoming Encounters Date Type Department Care Team (Late st Contact Info) Description 05/24/2025 2:00 PM CDT Office Visit [facility] - SENIOR ANDROID SOFTWARE ENGINEER [address] [facility] [address] [place] [address] Aye Dao MD [address] [facility] [address] [place] [address] documented as of this encounter Visit Diagnoses Not on filedocumented in this encounter Care Teams Retail Store Clerk Relationship Specialty Start Date End Date Casa Encarnacion MD PCP - General 12/12/15 documented as of this encounter
--- OUTSIDE RECORDS SUMMARY | 2024-09-08 21:07 | XMS_ITS | Encounter Summary ---
Author Organization [facility] Address [address] [place] [address] Care Team Providers Care Net Web Developer Name Role Phone Casa Encarnacion MD Primary Care Provider [phone] Encounter Details Date Type Department Care Team (Late Contact Info) Description 10/16/2020 Orders Only [facility] Obstetrics Gynecology and Women's Health [address] [place] [id number] Aye Dao MD [address] [address] Yeast infection involving the vagina [...] Description 05/24/2025 2:00 PM CDT Office Visit [facility]ician Group - LAND LEASING EXAMINER [address], [facility] 200 [place] [address] Aye Dao MD [address] [facility] [address] [place] [address] documented as of this encounter Visit Diagnoses Diagnosis Yeast infection involving the vagina and surrounding area Candidiasis of vulva and vagina documented in this encounter Care Teams Net Web Developer Relationship Specialty Start Date End Date Casa Encarnacion MD PCP - General 12/12/15 documented as of this encounter
--- OUTSIDE RECORDS SUMMARY | 2024-09-08 21:07 | XMS_ITS | Encounter Summary ---
Author Organization [facility] Health Address [address] [facility] [place] [address] Care Team Providers Care Technology Sales Specialist Name Role Phone Casa Encarnacion MD Primary Care Provider [phone] Reason for Visit * Reason Onset Date Comments Question 09/11/2022 Encounter Details Date Type Department Care Team (Late st Contact Info) Description 09/11/2022 Telephone [facility] [address] [facility] [address] [place] [address] Aye Dao MD [address] [facility] [address] [place] [address] Question Social History Tobacco Use [...] Marilin Alvarado RN - 09/11/2022 1:20 PM CARDIAC/VASCULAR SONOGRAPHER Notified patient of the reply from Dr [...] Patient anxious about trying to get to [facility] to see Dr Leonard. Wonders if her doctor could do the swab for yeast. Aware we will see how she is doing next week. Again suggested frozen vegetables for relief IAC/VASCULAR SONOGRAPHER * Telephone Encounter - Marilin Alvarado RN - 09/11/2022 12:12 PM CARDIAC/VASCULAR SONOGRAPHER Per Dr Leonard: She needs to stop [...] and beginning to help decrease the burning. IAC/VASCULAR SONOGRAPHER * Telephone Encounter - Marilin Alvarado RN - 09/11/2022 11:14 AM CARDIAC/VASCULAR SONOGRAPHER Return call Spoke to patient Has complaint [...] She reports yes, gabapentin 600 mg TID IAC/VASCULAR SONOGRAPHER * Telephone Encounter - Lucie Capellan - 09/11/2022 11:07 AM CST Pt called with concern about some symptoms she is having and says she may need medication. Pt did not share specifics. Wants to speak with a nurse. CB #[phone] IAC/VASCULAR SONOGRAPHER documented in this encounter Plan of Treatment Upcoming Encounters Date Type Department Care Team (Late st Contact Info) Description 05/24/2025 2:00 PM CDT Office Visit [facility] - HAWK MISSILE SYSTEM CREWMEMBER [address] [facility] 200 [place] [address] Aye Dao MD [address] [facility] [address] [place] [address] documented as of this encounter Visit Diagnoses Not on filedocumented in this encounter Care Teams Technology Sales Specialist Relationship Specialty Start Date End Date Casa Encarnacion MD PCP - General 12/12/15 documented as of this encounter
--- OUTSIDE RECORDS SUMMARY | 2024-09-08 21:07 | XMS_ITS | Encounter Summary ---
Author Organization [facility] Health Address [address] [place] [address] Care Team Providers Care Investigator Internal Affairs Name Role Phone Casa Encarnacion MD Primary Care Provider [phone] Reason for Visit * Reason Onset Date Comments Nurse Only 05/15/2022 Patient Requested Call 05/15/2022 Encounter Details Date Type Department Care Team (Late st Contact Info) Description 05/15/2022 Telephone [facility]'s [facility] [address] [place], [place] [address] Aye Dao MD [address] [facility] [address] [place] [address] Nurse Only; Patient Requested Call [...] Aware 10:30 am * Telephone Encounter - Hannah Mckeon - 05/20/2022 8:21 AM CDT Pt is calling office and she would like to speak with a nurse Pt CB# [phone] * Telephone Encounter - Tobias Mora RN [...] her she will need code sent to Piazza so which ever dtr gets Piazza messages will need to give her the code. * Telephone Encounter - Tobias Mora RN - 05/16/2022 10:49 AM CDT [employer] message sent with Dr Zhao's message and [...] send back to confirm you can see [employer] messages. Advised: last seen last year. Will check with Dr Zhao and see if this is okay for an annual visit. * Telephone Encounter - Maddy Wlid - 05/15/2022 11:39 AM CDT Pt calling to speak to a nurse regarding virtual appt documented in this encounter Plan of Treatment Upcoming Encounters Date Type Department Care Team (Late st Contact Info) Description 05/24/2025 2:00 PM CDT Office Visit [facility] - PACKING MACHINE PILOT CAN ROUTER [address] [address] [place] [address] Aye Dao MD [address] [facility] [address] [place] [address] documented as of this encounter Visit Diagnoses Not on filedocumented in this encounter Care Teams Investigator Internal Affairs Relationship Specialty Start Date End Date Casa Encarnacion MD PCP - General 12/12/15 documented as of this encounter
--- OUTSIDE RECORDS SUMMARY | 2024-09-08 21:07 | XMS_ITS | Encounter Summary ---
Author Organization [facility] Health Address [address] [place] [address] Care Team Providers Care Aviation Safety Technician Name Role Phone Casa Encarnacion MD Primary Care Provider Reason for Visit * Reason Comments Refill Request Encounter Details Date Type Department Care Team (Late Contact Info) Description 06/10/2021 Refill [facility] [address] [place] [address] Aye Dao MD [address] [address] Refill Request Social History Tobacco [...] CDT Office Visit [facility] - DIRECTOR FEDERAL [address], [address] [place] [address] Aye Dao MD [address] [facility] 400 [place] [address] documented as of this encounter Visit Diagnoses Diagnosis Vulvodynia documented in this encounter Care Teams Aviation Safety Technician Relationship Specialty Start Date End Date Casa Encarnacion MD PCP - General 12/12/15 documented as of this encounter
--- OUTSIDE RECORDS SUMMARY | 2024-09-08 21:07 | XMS_ITS | Encounter Summary ---
Author Organization [facility] Health Address [address] [place] [address] Care Team Providers Care Pulverizer Name Role Phone Casa Encarnacion MD Primary Care Provider [phone] Reason for Visit * Reason Onset Date Comments Refill Request 07/13/2020 Encounter Details Date Type Department Care Team (Late st Contact Info) Description 07/13/2020 Telephone [facility] [address] [place] [address] Aye Dao MD [address] [facility] 400 [place] [address] Refill Request Social History Tobacco [...] Iris Lundy LPN - 07/13/2020 10:01 AM LABEL REWINDER I spoke with the patient. Her itching [...] did review her allergies and local pharmacy L REWINDER * Telephone Encounter - Ese Romero - 07/13/2020 9:15 AM CST Patient called and noted that she needs some Diflucan for a yeast infection. [facility] [id number] Patient asked if you could call her either way so she knows what is going on. Call back # [phone] L REWINDER documented in this encounter Plan of Treatment Upcoming Encounters Date Type Department Care Team (Late st Contact Info) Description 05/24/2025 2:00 PM CDT Office Visit [facility] - CELLOPHANE TESTER [address], [facility] 200 [place] [address] Aye Dao MD [address] [facility] 400 [place] [address] documented as of this encounter Visit Diagnoses Diagnosis Yeast infection of the vagina Candidiasis of vulva and vagina documented in this encounter Care Teams Pulverizer Relationship Specialty Start Date End Date Casa Encarnacion MD PCP - General 12/12/15 documented as of this encounter
--- OUTSIDE RECORDS SUMMARY | 2024-09-08 21:07 | XMS_ITS | Encounter Summary ---
Author Organization [facility] Health Address [address] [facility] [place] [address] Care Team Providers Care Hat Liner Name Role Phone Casa Encarnacion MD Primary Care Provider [phone] Encounter Details Date Type Department Care Team (Late st Contact Info) Description 04/12/2021 10:50 AM CDT Office Visit [facility] [address] [place], [place] [id number] Elisa Fisher, CANDLE MOLDER MACHINE-COMBINING MACHINE OPERATOR [address] [address] Vulvodynia (Primary Dx); History of [...] at home for PRN use F/U as critical access hospital 07-03-2021 Dr Pacheco Pt would prefer to [...] Office Visit [facility] - DIRECTOR CUSTOM [address] [facility] [place] [address] Aye Dao MD 1031 [facility] 400 [place] [address] documented as of this encounter Procedures Procedure Name Priority Date/Time Associated Diagnosis Comments CULTURE YEAST Routine 04/12/2021 10:59 AM CDT History of candidiasis documented in this encounter Results * CULTURE YEAST (04/12/2021 10:59 AM CDT) Culture Yeast with ID [facility] Comment: ??CULTURE, YEAST, W/IDENTIFICATION ?Micro Number: ?[id number] ??Test Status: ? Final ??Specimen Source: ?? Vulva ??Specimen Quality: ??Adequate ??Result: ?No fungal growth at 2 Weeks Test Performed at: [email or web address] ??[id number] ZORAIDA TYLER MD Microbiology ENTIRE VULVA / Unknown 04/12/2021 10:59 AM CDT 04/13/2021 3:14 AM CDT Elisa E Hoffstetter CANDLE MOLDER MACHINE-COMBINING MACHINE OPERATOR LAB - MICRO BIOLOGY ORDERABLES [facility] [address] [place] [address] documented in this encounter Visit Diagnoses Diagnosis Vulvodynia- Primary History of candidiasis Personal history of other infectious and parasitic disease History of recurrent UTIs Personal history of urinary (tract) infection documented in this encounter Care Teams Hat Liner Relationship Specialty Start Date End Date Casa Encarnacion MD PCP - General 12/12/15 documented as of this encounter
--- OUTSIDE RECORDS SUMMARY | 2024-09-08 21:07 | XMS_ITS | Encounter Summary ---
Author Organization [facility] Health Address [address] [place] [address] Care Team Providers Care Automatic Pinsetter Adjuster Name Role Phone Casa Encarnacion MD Primary Care Provider [phone] Reason for Visit * Reason Onset Date Comments Medication Issue 06/11/2021 Encounter Details Date Type Department Care Team (Late st Contact Info) Description 06/11/2021 Telephone [facility] [address] [place], [place] [id number] Aye Dao MD 1031 [facility] 400 [place] [address] Medication Issue Social History Tobacco [...] her. Pt would like to be contacted [phone]. documented in this encounter Plan of Treatment Upcoming Encounters Date Type Department Care Team (Late st Contact Info) Description 05/24/2025 2:00 PM CDT Office Visit [facility] - PUBLIC HEALTH DENTIST [address], [facility] 200 [place] [address] Aye Dao MD [address] [facility] 400 [place] [address] documented as of this encounter Visit Diagnoses Not on filedocumented in this encounter Care Teams Automatic Pinsetter Adjuster Relationship Specialty Start Date End Date Casa Encarnacion MD PCP - General 12/12/15 documented as of this encounter
--- OUTSIDE RECORDS SUMMARY | 2024-09-08 21:07 | XMS_ITS | Encounter Summary ---
Author Organization [facility] Health Address [address] [place] [address] Care Team Providers Care Windows Application Developer Name Role Phone Casa Encarnacion MD Primary Care Provider [phone] Reason for Visit * Reason Comments Vaginal Problem Encounter Details Date Type Department Care Team (Late st Contact Info) Description 07/03/2021 10:30 AM CDT Office Visit [facility] [address] [facility] [address] [place] [address] Aye Dao MD 1031 [facility] [address] [place] [address] Vulvodynia (Primary Dx); History of [...] CDT Office Visit [facility] - TRACKMOBILE OPERATOR [address], [facility] 200 [place] [address] Aye Dao MD 1031 [facility] 400 [place] [address] documented as of this encounter Visit Diagnoses Diagnosis Vulvodynia- Primary History of candidiasis Personal history of other infectious and parasitic disease documented in this encounter Care Teams Windows Application Developer Relationship Specialty Start Date End Date Casa Encarnacion MD PCP - General 12/12/15 documented as of this encounter
--- OUTSIDE RECORDS SUMMARY | 2024-09-08 21:07 | XMS_ITS | Encounter Summary ---
Author Organization [facility] Health Address [address] [facility] [place] [address] Care Team Providers Care Drop Board Man Name Role Phone Casa Encarnacion MD Primary Care Provider [phone] Reason for Visit * Reason Comments Refill Request Encounter Details Date Type Department Care Team (Late st Contact Info) Description 06/10/2022 Refill [facility] [address] [facility] [address] [place] [address] Aye Dao MD [address] [facility] [address] [place] [address] Refill Request Social History Tobacco [...] nystatin (Mycostatin) powder [Pharmacy Med Name: [facility]STATIN [id number] IN OIL CAPS CAPSULE] 30 Each 1 Sig: INSERT ONE CAPSULE IN THE VAGINA NIGHTLY DIRECTED. documented in this encounter Plan of Treatment Upcoming Encounters Date Type Department Care Team (Late st Contact Info) Description 05/24/2025 2:00 PM CDT Office Visit [facility] - QUICK MIXER OPERATOR [address], [facility] 200 [place] [address] Aye Dao MD [address] [facility] 400 [place] [address] documented as of this encounter Visit Diagnoses Diagnosis History of candidiasis Personal history of other infectious and parasitic disease documented in this encounter Care Teams Drop Board Man Relationship Specialty Start Date End Date Casa Encarnacion MD PCP - General 12/12/15 documented as of this encounter
--- OUTSIDE RECORDS SUMMARY | 2024-09-08 21:07 | XMS_ITS | Encounter Summary ---
Author Organization [facility] Address [address] [facility] [place] [address] Care Team Providers Care Business Intelligence Developer Name Role Phone Casa Encarnacion MD Primary Care Provider [phone] Reason for Visit * Reason Onset Date Comments Nurse Only 05/09/2021 Encounter Details Date Type Department Care Team (Late st Contact Info) Description 05/09/2021 Telephone [facility] Group - JEWELRY SALES REPRESENTATIVE [address] [address] Aye Dao MD [address] [place] [address] Nurse Only Social History Tobacco Use [...] nightly for 5 nights. Script sent to: [facility] [address] [place] [address] Insurance will not cover but the [...] CDT Office Visit [facility] - JEWELRY SALES REPRESENTATIVE [address], [facility] 200 [place] [address] Aye Dao MD [address] [facility] 400 [place] [address] documented as of this encounter Visit Diagnoses Diagnosis History of candidiasis- Primary Personal history of other infectious and parasitic disease documented in this encounter Care Teams Business Intelligence Developer Relationship Specialty Start Date End Date Casa Encarnacion MD PCP - General 12/12/15 documented as of this encounter
--- OUTSIDE RECORDS SUMMARY | 2024-09-08 21:07 | XMS_ITS | Encounter Summary ---
Author Organization [facility] Health Address [address] [facility] [place] [address] Care Team Providers Care Blacksmith Assistant Name Role Phone Casa Encarnacion MD Primary Care Provider [phone] Reason for Visit * Reason Onset Date Comments Nurse Only 06/05/2021 Encounter Details Date Type Department Care Team (Late st Contact Info) Description 06/05/2021 Telephone [facility] [address] [facility] [address] [place] [address] Aye Dao MD 1031 [facility] [address] [place] [address] Nurse Only Social History Tobacco [...] some vaginal burning she is experiencing. CB# [phone] documented in this encounter Plan of Treatment Upcoming Encounters Date Type Department Care Team (Late st Contact Info) Description 05/24/2025 2:00 PM CDT Office Visit [facility] - INSPECTOR [address], [facility] 200 [place] [address] Aye Dao MD [address] [place] [address] documented as of this encounter Visit Diagnoses Not on filedocumented in this encounter Care Teams Blacksmith Assistant Relationship Specialty Start Date End Date Casa Encarnacion MD PCP - General 12/12/15 documented as of this encounter
--- OUTSIDE RECORDS SUMMARY | 2024-09-08 21:07 | XMS_ITS | Encounter Summary ---
Author Organization [facility] Health Address [address] [facility] [place] [address] Care Team Providers Care Provider Relations Advocate Name Role Phone Casa Encarnacion MD Primary Care Provider [phone] Reason for Visit * Reason Onset Date Comments Nurse Only 04/24/2021 Encounter Details Date Type Department Care Team (Late st Contact Info) Description 04/24/2021 Telephone [facility] [address] [facility] [address] [place], [place] [id number] Aye Dao MD 10[address] [facility] [address] [place] [address] Nurse Only Social History Tobacco [...] more issues with itching and burning. CB# [phone] documented in this encounter Plan of Treatment Upcoming Encounters Date Type Department Care Team (Late st Contact Info) Description 05/24/2025 2:00 PM CDT Office Visit [facility] - TRACK HELPER [address], [address] [place] [address] Aye Dao MD [address] [place] [address] documented as of this encounter Visit Diagnoses Not on filedocumented in this encounter Care Teams Provider Relations Advocate Relationship Specialty Start Date End Date Casa Encarnacion MD PCP - General 12/12/15 documented as of this encounter
--- OUTSIDE RECORDS SUMMARY | 2024-09-08 21:07 | XMS_ITS | Encounter Summary ---
Author Organization [facility] Health Address [address] [facility] [place] [address] Care Team Providers Care School Bus Driver Name Role Phone Casa Encarnacion MD Primary Care Provider [phone] Reason for Visit * Reason Onset Date Comments Med Question 12/27/2021 Encounter Details Date Type Department Care Team (Late st Contact Info) Description 12/27/2021 Telephone [facility] [address] [place] [address] Aye Dao MD 10[address] [facility] 400 [place] [address] Med Question Social History Tobacco [...] ago and put on abx. Had already [place] her itching was starting to come back, [...] has about her nystatin script. Pt callback# [phone] documented in this encounter Plan of Treatment Upcoming Encounters Date Type Department Care Team (Late st Contact Info) Description 05/24/2025 2:00 PM CDT Office Visit [facility] - DINING ROOM HOST/HOSTESS [address] [facility] 200 [place] [address] Aye Dao MD [address] [facility] 400 [place] [address] documented as of this encounter Visit Diagnoses Not on filedocumented in this encounter Care Teams School Bus Driver Relationship Specialty Start Date End Date Casa Encarnacion MD PCP - General 12/12/15 documented as of this encounter
--- OUTSIDE RECORDS SUMMARY | 2024-09-08 21:07 | XMS_ITS | Encounter Summary ---
Author Organization [facility] Health Address [address] [facility] [address] Care Team Providers Care Account Supervisor Name Role Phone Casa Encarnacion MD Primary Care Provider [phone] Reason for Visit * Reason Onset Date Comments Nurse Only 06/12/2021 Encounter Details Date Type Department Care Team (Late st Contact Info) Description 06/12/2021 Telephone [facility] [address] [facility] [address] [place], [place] [address] Aye Dao MD 10[address] [facility] [address] [place] [address] Nurse Only Social History Tobacco [...] returning missed call from Marilin Allen CB# [phone] documented in this encounter Plan of Treatment Upcoming Encounters Date Type Department Care Team (Late st Contact Info) Description 05/24/2025 2:00 PM CDT Office Visit [facility] - VP SITE [address], [facility] 200 [place] [address] Aye Dao MD [address] [place] [address] documented as of this encounter Visit Diagnoses Not on filedocumented in this encounter Care Teams Account Supervisor Relationship Specialty Start Date End Date Casa Encarnacion MD PCP - General 12/12/15 documented as of this encounter
--- OUTSIDE RECORDS SUMMARY | 2024-09-08 21:07 | XMS_ITS | Encounter Summary ---
Author Organization [facility] Health Address [address] [facility] [place] [address] Care Team Providers Care Middle School Resource Teacher Name Role Phone Casa Encarnacion MD Primary Care Provider [phone] Reason for Visit * Reason Comments Refill Request Encounter Details Date Type Department Care Team (Late st Contact Info) Description 08/06/2022 Refill [facility] [address] [facility] [address] [place] [address] Aye Dao MD 10[address] [facility] [address] [place] [address] Refill Request Social History Tobacco [...] Yanira Galvan RN - 08/06/2022 2:14 PM LINE REPAIRER YAYO 06/2021, NOV 08/28/22. Last refill 06/10/22 good for 2 months. Allowed one refill of Nystatin capsule until seen. Reminder to patient with this refill of pending appointment. REPAIRER documented in this encounter Plan of Treatment Upcoming Encounters Date Type Department Care Team (Late st Contact Info) Description 05/24/2025 2:00 PM CDT Office Visit [facility] Group - OUTBOUND TELEMARKETER 10[address] [facility], [facility] 200 [place] [address] Aye Dao MD 1031 [facility] 400 [place] [address] documented as of this encounter Visit Diagnoses Diagnosis History of candidiasis Personal history of other infectious and parasitic disease documented in this encounter Care Teams Middle School Resource Teacher Relationship Specialty Start Date End Date Casa Encarnacion MD PCP - General 12/12/15 documented as of this encounter
--- OUTSIDE RECORDS SUMMARY | 2024-09-08 21:07 | XMS_ITS | Encounter Summary ---
Author Organization [facility] Health Address [address] [place] [place] [address] Care Team Providers Care Real Estate Analyst Name Role Phone Casa Encarnacion MD Primary Care Provider [phone] Reason for Visit * Reason Onset Date Comments UTI 09/05/2020 Encounter Details Date Type Department Care Team (Late st Contact Info) Description 09/05/2020 Telephone [facility] [address] [place] [address] Aye Dao MD 10[address] [facility] 400 [place] [address] UTI Social History Tobacco Use [...] Iris Lundy LPN - 09/05/2020 10:18 AM SUPPLY CHAIN ASSISTANT The patient can not come in tomorrow. [place] away, the roads are suppose to be bad tomorrow and no one to bring her in. I discussed with Dr. Zhao Will send in diflucan every other day for 3 doses. If not better will have to be seen. 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 Could she come in tomorrow for a quick yeast culture? LY CHAIN ASSISTANT * Telephone Encounter - Iris Lundy LPN - 09/05/2020 9:48 AM SUPPLY CHAIN ASSISTANT I called the patient - she is [...] I hear back. All are in agreement LY CHAIN ASSISTANT * Telephone Encounter - Ese Romero - 09/05/2020 9:02 AM CST Patient called and noted that she is having some burning and itching. Can you call her to go over that? She would like to speak with the nurses. Call back # [phone] LY CHAIN ASSISTANT documented in this encounter Plan of Treatment Upcoming Encounters Date Type Department Care Team (Late st Contact Info) Description 05/24/2025 2:00 PM CDT Office Visit [facility] - POLICEWOMAN [address], [address] [place] [address] Aye Dao MD [address] [address] documented as of this encounter Visit Diagnoses Diagnosis Yeast infection of the vagina Candidiasis of vulva and vagina documented in this encounter Care Teams Real Estate Analyst Relationship Specialty Start Date End Date Casa Encarnacion MD PCP - General 12/12/15 documented as of this encounter
--- OUTSIDE RECORDS SUMMARY | 2024-09-08 21:07 | XMS_ITS | Encounter Summary ---
Author Organization [facility] Health Address [address] [facility] [place] [address] Care Team Providers Care Library Clerk Talking Books Name Role Phone Casa Encarnacion MD Primary Care Provider [phone] Reason for Visit * Reason Onset Date Comments Encounter Opened In Error 04/13/2021 Encounter Details Date Type Department Care Team (Late st Contact Info) Description 04/13/2021 Telephone [facility] [address] [place] [address] Aye Dao MD 1031 [facility] 400 [place] [address] Encounter Opened In Error Social [...] opened in error, closed for administrative reasons. SACTION MANAGER documented in this encounter Plan of Treatment Upcoming Encounters Date Type Department Care Team (Late st Contact Info) Description 05/24/2025 2:00 PM CDT Office Visit [facility] - ENCYCLOPEDIA RESEARCH WORKER [address], [facility] 200 [place] [address] Aye Dao MD [address] [facility] 400 [place] [address] documented as of this encounter Visit Diagnoses Not on filedocumented in this encounter Care Teams Library Clerk Talking Books Relationship Specialty Start Date End Date Casa Enacrnacion MD PCP - General 12/12/15 documented as of this encounter
--- OUTSIDE RECORDS SUMMARY | 2024-09-08 21:07 | XMS_ITS | Encounter Summary ---
Author Organization [facility] Address [facility] [place] [address] Care Team Providers Care Global Creative Chairman Name Role Phone Casa Encarnacion MD Primary Care Provider [phone] Reason for Visit * Reason Onset Date Comments Medication Issue 04/11/2020 Encounter Details Date Type Department Care Team (Late st Contact Info) Description 04/11/2020 Telephone [facility] Medical Group - SANDWICH BOARD CARRIER [address] [address] Aye Dao MD [address] [place] [address] Medication Issue Social History Tobacco Use [...] callback.She is having issue with her medication. [phone] documented in this encounter Plan of Treatment Upcoming Encounters Date Type Department Care Team (Late st Contact Info) Description 05/24/2025 2:00 PM CDT Office Visit [facility] - SANDWICH BOARD CARRIER [address], [facility] 200 [place] [address] Aye Dao MD [address] [place] [address] documented as of this encounter Visit Diagnoses Not on filedocumented in this encounter Care Teams Global Creative Chairman Relationship Specialty Start Date End Date Casa Encarnacion MD PCP - General 12/12/15 documented as of this encounter
--- OUTSIDE RECORDS SUMMARY | 2024-09-08 21:07 | XMS_ITS | Encounter Summary ---
Author Organization [facility] Address [address] [facility] [address] Care Team Providers Care Candle Wicker Name Role Phone Casa Encarnacion MD Primary Care Provider [phone] Reason for Visit * Reason Onset Date Comments Opened In Error 05/03/2020 Encounter Details Date Type Department Care Team (Late Contact Info) Description 05/03/2020 Telephone [facility] Medical [facility] - WINDOWS VMWARE ADMINISTRATOR [address] [place] [address] Aye Dao MD [address] [place] [address] Opened In Error Social History Tobacco [...] Upcoming Encounters Date Type Department Care Team ([facility] Contact Info) Description 05/24/2025 2:00 PM CDT Office Visit [facility] - WINDOWS VMWARE ADMINISTRATOR [address] [place] [address] [address] [place] [address] Aye Dao MD [address] [place] [address] documented as of this encounter Visit Diagnoses Not on filedocumented in this encounter Care Teams Candle Wicker Relationship Specialty Start Date End Date Casa Encarnacion MD PCP - General 12/12/15 documented as of this encounter
--- OUTSIDE RECORDS SUMMARY | 2024-09-08 21:07 | XMS_ITS | Encounter Summary ---
Author Organization [facility] Health Address [address] [place] [place] [address] Care Team Providers Care Bid Manager Name Role Phone Casa Encarnacion MD Primary Care Provider [phone] Reason for Visit * Reason Onset Date Comments MEDICATION REFILL 10/16/2020 Encounter Details Date Type Department Care Team (Late st Contact Info) Description 10/16/2020 Telephone [facility] [address] [place] [address] Aye Dao MD [address] [facility] [address] [place] [address] MEDICATION REFILL Social History Tobacco [...] Iris Lundy LPN - 10/16/2020 1:44 PM QUALIFIED CRAFT WORKER ELECTRICIAN I called the patient - gave her Dr. Zhao's message. She does have a local FINAL INSPECTOR PAPER = she will try to get in and get the culture done. She will have them send us the results All are in agreement IFIED CRAFT WORKER ELECTRICIAN * Telephone Encounter - Aye Zhao MD - 10/16/2020 1:03 PM CST She was treated for a UTI with Cipro on 10/11 and she was given a prescription for fluconazole by on 10/11. I really need to repeat her culture as the last one we did showed resistant yeast. If she has a wood model builder near her, she could go and get an yeast culture there. IFIED CRAFT WORKER ELECTRICIAN * Telephone Encounter - Iris Lundy LPN - 10/16/2020 11:40 AM QUALIFIED CRAFT WORKER ELECTRICIAN I spoke with the patient - explained [...] office. The diflucan always seems to help. IFIED CRAFT WORKER ELECTRICIAN * Telephone Encounter - Manju Wild - 10/16/2020 11:16 AM CST Pt callied stating she needs a refill on fluconazole (DIFLUCAN) 200 MG tablet CB#[phone] IFIED CRAFT WORKER ELECTRICIAN documented in this encounter Plan of Treatment Upcoming Encounters Date Type Department Care Team (Late st Contact Info) Description 05/24/2025 2:00 PM CDT Office Visit [facility] - MAIL MESSENGER CONTRACTOR [address], [facility] 200 [place] [address] Aye Dao MD [address] [place] [address] documented as of this encounter Visit Diagnoses Not on filedocumented in this encounter Care Teams Bid Manager Relationship Specialty Start Date End Date Casa Encarnacion MD PCP - General 12/12/15 documented as of this encounter
--- OUTSIDE RECORDS SUMMARY | 2024-09-08 21:07 | XMS_ITS | Encounter Summary ---
Author Organization [facility] Health Address [address] [facility] [place] [address] Care Team Providers Care Microarray Specialist Name Role Phone Casa Encarnacion MD Primary Care Provider [phone] Reason for Visit * Reason Onset Date Comments Patient Requested Call 07/17/2021 Encounter Details Date Type Department Care Team (Late st Contact Info) Description 07/17/2021 Telephone [facility] [address] [facility] [address] [place] [address] Aye Dao MD [address] [facility] [address] [place] [address] Patient Requested Call Social History [...] Iris Lundy LPN - 07/17/2021 10:15 AM INJECTION MOLDING SUPERVISOR I spoke with the patient - she [...] everything back to me and is agreeable CTION MOLDING SUPERVISOR * Telephone Encounter - Hannah Mckeon - 07/17/2021 9:49 AM CST Pt is calling office in regards to a new medication she is taking and would like to speak with a nurse Pt CB# [phone] CTION MOLDING SUPERVISOR documented in this encounter Plan of Treatment Upcoming Encounters Date Type Department Care Team (Late st Contact Info) Description 05/24/2025 2:00 PM CDT Office Visit [facility] - BASE BRANDER [address] [facility], [facility] 200 [place] [address] Aye Dao MD 10[address] [facility] 400 [place] [address] documented as of this encounter Visit Diagnoses Not on filedocumented in this encounter Care Teams Microarray Specialist Relationship Specialty Start Date End Date Casa Encarnacion MD PCP - General 12/12/15 documented as of this encounter
--- OUTSIDE RECORDS SUMMARY | 2024-09-08 21:07 | XMS_ITS | Encounter Summary ---
Author Organization [facility] Health Address [address] [facility] [place] [address] Care Team Providers Care Larriman Helper Name Role Phone Casa Encarnacion MD Primary Care Provider [phone] Reason for Visit * Reason Onset Date Comments Concerns 05/16/2022 Encounter Details Date Type Department Care Team (Late st Contact Info) Description 05/16/2022 Telephone [facility] [address] [facility] [address] [place], [place] [id number] Aye Dao MD [address] [facility] [address] [place] [address] Concerns Social History Tobacco Use [...] with someone about her previous appointment. CB# [phone] documented in this encounter Plan of Treatment Upcoming Encounters Date Type Department Care Team (Late st Contact Info) Description 05/24/2025 2:00 PM CDT Office Visit [facility] - PRECISION DEVICES INSPECTOR/TESTER [address], [facility] 200 [place] [address] Aye Dao MD [address] [facility] 400 [place] [address] documented as of this encounter Visit Diagnoses Not on filedocumented in this encounter Care Teams Larriman Helper Relationship Specialty Start Date End Date Casa Encarnacion MD PCP - General 12/12/15 documented as of this encounter
--- OUTSIDE RECORDS SUMMARY | 2024-09-08 21:07 | XMS_ITS | Encounter Summary ---
Author Organization [facility] Health Address [address] [facility] [place] [address] Care Team Providers Care Senior Integration Developer Name Role Phone Casa Encarnacion MD Primary Care Provider [phone] Reason for Visit * Reason Onset Date Comments Medication Side Effect 03/13/2022 Encounter Details Date Type Department Care Team (Late st Contact Info) Description 03/13/2022 Telephone [facility] [address] [place] [address] Aye Dao MD [address] [address] Medication Side Effect Social History [...] 05/24/2025 2:00 PM CDT Office Visit [facility] - INTERFACE ANALYST 10[address] [facility] 200 [place] [address] Aye Dao MD [address] [facility] 400 [place] [address] documented as of this encounter Visit Diagnoses Not on filedocumented in this encounter Care Teams Senior Integration Developer Relationship Specialty Start Date End Date Casa Encarnacion MD PCP - General 12/12/15 documented as of this encounter
--- OUTSIDE RECORDS SUMMARY | 2024-09-08 21:07 | XMS_ITS | Encounter Summary ---
Author Organization [facility] Health Address [address] [place] [address] Care Team Providers Care Cell Stripper Name Role Phone Casa Encarnacion MD Primary Care Provider [phone] Reason for Visit * Reason Comments Refill Request Encounter Details Date Type Department Care Team (Late st Contact Info) Description 02/06/2022 Refill [facility] [address] [facility] [address] [place] [address] Aye Dao MD [address] [facility] [address] [place] [address] Refill Request Social History Tobacco [...] Miscellaneous Notes * Telephone Encounter - Marilin Alvraado RN - 02/06/2022 11:56 AM CDT Last seen 07/03/2021 Has 07/09/2021 pending Rx refill sent through [email or web address] after pharmacy fax'd request Nystatin capsules documented in this encounter Plan of Treatment Upcoming Encounters Date Type Department Care Team (Late st Contact Info) Description 05/24/2025 2:00 PM CDT Office Visit [facility] - FOUNDER [address], [facility] 200 [place] [address] Aye Dao MD [address] [facility] [address] [place] [address] documented as of this encounter Visit Diagnoses Diagnosis History of candidiasis Personal history of other infectious and parasitic disease documented in this encounter Care Teams Cell Stripper Relationship Specialty Start Date End Date Casa Encarnacion MD PCP - General 12/12/15 documented as of this encounter
--- OUTSIDE RECORDS SUMMARY | 2024-09-08 21:07 | XMS_ITS | Encounter Summary ---
Author Organization [facility] Health Address [address] [facility] [place] [address] Care Team Providers Care Gluer And Wedger Name Role Phone Casa Encarnacion MD Primary Care Provider [phone] Reason for Visit * Reason Onset Date Comments Nurse Only 05/10/2021 Encounter Details Date Type Department Care Team (Late st Contact Info) Description 05/10/2021 Telephone [facility] [address] [facility] [address] [place], [place] [id number] Aye Dao MD [address] [facility] [address] [place] [address] Nurse Only Social History Tobacco [...] returning missed call from Marilin Henriquez. CB# [phone] documented in this encounter Plan of Treatment Upcoming Encounters Date Type Department Care Team (Late st Contact Info) Description 05/24/2025 2:00 PM CDT Office Visit [facility] - SEAM SEWER [address], [facility] 200 [place] [address] Aye Dao MD [address] [facility] [address] [place] [address] documented as of this encounter Visit Diagnoses Not on filedocumented in this encounter Care Teams Gluer And Wedger Relationship Specialty Start Date End Date Casa Encarnacion MD PCP - General 12/12/15 documented as of this encounter
--- OUTSIDE RECORDS SUMMARY | 2024-09-08 21:07 | XMS_ITS | Encounter Summary ---
Author Organization [facility] Health Address [address] [facility] [place] [address] Care Team Providers Care Ichthyologist Name Role Phone Casa Encarnacion MD Primary Care Provider [phone] Reason for Visit * Reason Onset Date Comments Vaginal Problem 06/09/2020 Encounter Details Date Type Department Care Team (Late st Contact Info) Description 06/09/2020 Telephone [facility] [address] [place] [address] Aye Dao MD [address] [address] Vaginal Problem Social History Tobacco [...] Diflucan sent to pharmacy. Pt's CB #: [phone] documented in this encounter Plan of Treatment Upcoming Encounters Date Type Department Care Team (Late st Contact Info) Description 05/24/2025 2:00 PM CDT Office Visit [facility] - AIRCRAFT MAINTENANCE INSTRUCTOR [address], [facility] 200 [place] [address] Aye Dao MD [address] [facility] 400 [place] [address] documented as of this encounter Visit Diagnoses Not on filedocumented in this encounter Care Teams Ichthyologist Relationship Specialty Start Date End Date Casa Encarnacion MD PCP - General 12/12/15 documented as of this encounter
--- OUTSIDE RECORDS SUMMARY | 2024-09-08 21:07 | XMS_ITS | Encounter Summary ---
Author Organization [facility] Address [address] [facility] [place] [address] Care Team Providers Care Associate Professor Of Anthropology Name Role Phone Casa Encarnacion MD Primary Care Provider [phone] Encounter Details Date Type Department Care Team (Late Contact Info) Description 11/29/2020 Orders Only [facility] Medical [facility] - COVID Vax [address] [place] [address] Humphrey Castillo MD [address] [facility] [address] [place] [address] Need for vaccination Social History [...] CDT Office Visit [facility] - SOFTWARE ENGINEER [address], [facility] 200 [place] [address] Aye Dao MD [address] [place] [address] documented as of this encounter Visit Diagnoses Diagnosis Need for vaccination Need for prophylactic vaccination and inoculation against unspecified single disease documented in this encounter Care Teams Associate Professor Of Anthropology Relationship Specialty Start Date End Date Casa Encarnacion MD PCP - General 12/12/15 documented as of this encounter
--- OUTSIDE RECORDS SUMMARY | 2024-09-08 21:07 | XMS_ITS | Encounter Summary ---
Author Organization [facility] Health Address [address] [facility] [place] [address] Care Team Providers Care Engineering Aide Name Role Phone Casa Encarnacion MD Primary Care Provider [phone] Reason for Visit * Reason Comments Refill Request Encounter Details Date Type Department Care Team (Late Contact Info) Description 07/10/2020 Refill [facility] [address] [place] [address] Aye Dao MD [address] [address] Refill Request Social History Tobacco [...] CDT Office Visit [facility] - SPECIAL WARFARE COMBATANT CREWMAN [address], [place] [address] [place] [address] Aye Dao MD [address] [facility] 400 [place] [address] documented as of this encounter Visit Diagnoses Diagnosis Vulvodynia documented in this encounter Care Teams Engineering Aide Relationship Specialty Start Date End Date Casa Encarnacion MD PCP - General 12/12/15 documented as of this encounter
--- OUTSIDE RECORDS SUMMARY | 2024-09-08 21:07 | XMS_ITS | Encounter Summary ---
Author Organization [facility] Health Address [address] [facility] [place] [address] Care Team Providers Care Counter Dish Carrier Name Role Phone Casa Encarnacion MD Primary Care Provider [phone] Reason for Visit * Reason Onset Date Comments Itching Vaginal 04/13/2021 Encounter Details Date Type Department Care Team (Late st Contact Info) Description 04/13/2021 Telephone [facility] [address] [place] [address] Aye Dao MD [address] [facility] 400 [place] [address] Itching Vaginal Social History Tobacco [...] nurse and get a rx justin # [phone] documented in this encounter Plan of Treatment Upcoming Encounters Date Type Department Care Team (Late st Contact Info) Description 05/24/2025 2:00 PM CDT Office Visit [facility] - PULP MACHINE OPERATOR [address], [facility] 200 [place] [address] Aye Dao MD [address] [facility] [address] [place] [address] documented as of this encounter Visit Diagnoses Not on filedocumented in this encounter Care Teams Counter Dish Carrier Relationship Specialty Start Date End Date Casa Encarnacion MD PCP - General 12/12/15 documented as of this encounter
--- OUTSIDE RECORDS SUMMARY | 2024-09-08 21:07 | XMS_ITS | Encounter Summary ---
Author Organization [facility] Address [address] [facility] [address] Care Team Providers Care Nursing Informatics Specialist Name Role Phone Casa Encarnacion MD Primary Care Provider [phone] Encounter Details Date Type Department Care Team (Late Contact Info) Description 09/05/2020 Orders Only [facility] Obstetrics Gynecology and Women's Health [address] [facility] 200 [place], [place] [id number] Aye Dao MD [address] [address] Social History Tobacco Use Types [...] [facility] - BRAINER [address], [facility] 200 [place] [address] Aye Dao MD [address] [facility] [address] [place] [address] documented as of this encounter Visit Diagnoses Not on filedocumented in this encounter Care Teams Nursing Informatics Specialist Relationship Specialty Start Date End Date Casa Encarnacion MD PCP - General 12/12/15 documented as of this encounter
--- OUTSIDE RECORDS SUMMARY | 2024-09-08 21:07 | XMS_ITS | Encounter Summary ---
Author Organization [facility] Health Address [address] [facility] [place] [address] Care Team Providers Care Vocational Technical Education Director Name Role Phone Casa Encarnacion MD Primary Care Provider Reason for Visit * Reason Comments Vaginal Problem Encounter Details Date Type Department Care Team (Late st Contact Info) Description 08/28/2022 10:30 AM PLASTER MACHINE TENDER Office Visit [facility] Obstetrics Gynecology and Women's Health [address] [facility] [address] [place] [address] Aye Dao MD [address] [facility] [address] [place] [address] Vulvodynia (Primary Dx); History of [...] Comments Blood Pressure 110/72 08/28/2022 10:33 AM PLASTER MACHINE TENDER Pulse - - Temperature 35.9 ??C (96.7 ??F) 08/28/2022 10:[address] Respiratory Rate - - Oxygen Saturation - - Inhaled Oxygen Concentration - - Weight 58.2 kg (128 lb 6.4 oz) 08/28/2022 10:33 AM PLASTER MACHINE TENDER Height 170 cm (5' 6.93 ) 08/28/2022 10:33 AM PLASTER MACHINE TENDER Body Mass Index 20.15 08/28/2022 10:33 AM PLASTER MACHINE TENDER documented in this encounter Patient Instructions * Patient Instructions* Aye Zhao MD - 08/28/2022 10:39 AM PLASTER MACHINE TENDER When you get put on antibiotics use a nystatin capsule nightly. Increase the gabapentin to 2 capsules in the morning, 2 capsules at lunch, and 2 at bedtime. TER MACHINE TENDER documented in this encounter Progress Notes * [...] about her conditions and explained treatment plan. TER MACHINE TENDER documented in this encounter Plan of Treatment Upcoming Encounters Date Type Department Care Team (Late st Contact Info) Description 05/24/2025 2:00 PM CDT Office Visit [facility] - GUEST LAUNDRY ATTENDANT [address], [facility] 200 [place] [address] Aye Dao MD [address] [facility] [address] [place] [address] documented as of this encounter Visit Diagnoses Diagnosis Vulvodynia- Primary History of candidiasis Personal history of other infectious and parasitic disease documented in this encounter Care Teams Vocational Technical Education Director Relationship Specialty Start Date End Date Casa Encarnacion MD PCP - General 12/12/15 documented as of this encounter
--- OUTSIDE RECORDS SUMMARY | 2024-09-08 21:07 | XMS_ITS | Encounter Summary ---
Author Organization [facility] Health Address [address] [facility] [place] [address] Care Team Providers Care Character Impersonator Name Role Phone Casa Encarnacion MD Primary Care Provider [phone] Reason for Visit * Reason Onset Date Comments Itching Vaginal 04/13/2021 Encounter Details Date Type Department Care Team (Late st Contact Info) Description 04/13/2021 Telephone [facility] [address] [place] [address] Aye Dao MD 10[address] [facility] 400 [place] [address] Itching Vaginal Social History Tobacco [...] a yeast culture yesterday on the [facility] patient. ??We ??need to see results as [...] burning/ itching & need some meds. CB# [phone] documented in this encounter Plan of Treatment Upcoming Encounters Date Type Department Care Team (Late st Contact Info) Description 05/24/2025 2:00 PM CDT Office Visit [facility] - SOFTWARE TOOLS ENGINEER [address], [facility] 200 [place] [address] Aye Dao MD [address] [facility] [address] [place] [address] documented as of this encounter Visit Diagnoses Not on filedocumented in this encounter Care Teams Character Impersonator Relationship Specialty Start Date End Date Casa Encarnacion MD PCP - General 12/12/15 documented as of this encounter
--- OUTSIDE RECORDS SUMMARY | 2024-09-08 21:07 | XMS_ITS | Encounter Summary ---
Author Organization [facility] Health Address [address] [facility] [place] [address] Care Team Providers Care Tube Balancer Name Role Phone Casa Encarnacion MD Primary Care Provider [phone] Reason for Visit * Reason Comments Refill Request Encounter Details Date Type Department Care Team (Late st Contact Info) Description 08/26/2022 Refill [facility] [address] [facility] [address] [place] [address] Aye Dao MD [address] [facility] [address] [place] [address] Refill Request Social History Tobacco [...] Marilin Alvarado RN - 08/26/2022 12:52 PM SCHOOL CAFETERIA COOK Compounded nystatin vaginal capsules Rx refill sent through [facility] after pharmacy fax'd request OL CAFETERIA COOK documented in this encounter Plan of Treatment Upcoming Encounters Date Type Department Care Team (Late st Contact Info) Description 05/24/2025 2:00 PM CDT Office Visit [facility] - SHIFT SUPERINTENDENT [address] [facility] 200 [place] [address] Aye Dao MD [address] [facility] [address] [place] [address] documented as of this encounter Visit Diagnoses Diagnosis History of candidiasis Personal history of other infectious and parasitic disease documented in this encounter Care Teams Tube Balancer Relationship Specialty Start Date End Date Casa Encarnacion MD PCP - General 12/12/15 documented as of this encounter
--- OUTSIDE RECORDS SUMMARY | 2024-09-08 21:07 | XMS_ITS | Encounter Summary ---
Author Organization [facility] Health Address [address] [facility] [place] [address] Care Team Providers Care Information Technology Associate Name Role Phone Casa Encarnacion MD Primary Care Provider [phone] Reason for Visit * Reason Comments Establish Care vulvodynia Encounter Details Date Type Department Care Team (Late st Contact Info) Description 05/09/2020 10:50 AM CDT Office Visit [facility] Obstetrics Gynecology and Women's Health [address] [facility] [address] [place], [place] [id number] Aye Dao MD 10[address] [facility] [address] [place] [address] Vulvodynia (Primary Dx) Social History [...] CDT Office Visit [facility] - CLINICAL DOCUMENTATION DEVELOPER [address], [facility] 200 [place] [address] Aye Dao MD [address] [facility] 400 [place] [address] documented as of this encounter Visit Diagnoses Diagnosis Vulvodynia- Primary documented in this encounter Care Teams Information Technology Associate Relationship Specialty Start Date End Date Casa Encarnacion MD PCP - General 12/12/15 documented as of this encounter
--- OUTSIDE RECORDS SUMMARY | 2024-09-08 21:07 | XMS_ITS | Encounter Summary ---
Author Organization [facility] Health Address [address] [place] [address] Care Team Providers Care Lap Layer Name Role Phone Casa Encarnacion MD Primary Care Provider [phone] Reason for Visit * Reason Comments Refill Request Encounter Details Date Type Department Care Team (Late st Contact Info) Description 09/18/2021 Refill [facility] [address] [facility] [address] [place] [address] Aye Dao MD 1031 [facility] [address] [place] [address] Refill Request Social History Tobacco [...] Iris Lundy LPN - 09/18/2021 11:57 AM MERCHANDISE ASSOCIATE Last visit 06/28 Next visit 07/30 Last refill gabapentin 06/28 Will send refills HANDISE ASSOCIATE documented in this encounter Plan of Treatment Upcoming Encounters Date Type Department Care Team (Late st Contact Info) Description 05/24/2025 2:00 PM CDT Office Visit [facility] - GIS DATABASE ADMINISTRATOR [address], [facility] 200 [place] [address] Aye Dao MD 1031 [facility] 400 [place] [address] documented as of this encounter Visit Diagnoses Diagnosis Vulvodynia documented in this encounter Care Teams Lap Layer Relationship Specialty Start Date End Date Casa Encarnacion MD PCP - General 12/12/15 documented as of this encounter
--- OUTSIDE RECORDS SUMMARY | 2024-09-08 21:07 | XMS_ITS | Encounter Summary ---
Author Organization [facility] Address [facility] [place] [address] Care Team Providers Care Aviation Tactical Readiness Officer Name Role Phone Casa Encarnacion MD Primary Care Provider [phone] Reason for Visit * Reason Onset Date Comments Medication Problem 06/12/2021 Encounter Details Date Type Department Care Team (Late st Contact Info) Description 06/12/[address] [facility] - FIBERGLASS BOAT FINISHER [address] [address] Aye Dao MD [address] [place] [address] Medication Problem Social History Tobacco Use [...] 11:51 AM CDT Return call to patient [phone] Voice mail Left message If it is [...] PM CDT Office Visit [facility] - FIBERGLASS BOAT FINISHER 1031 [facility] 200 [place] [address] Aye Dao MD 1031 [facility] 400 [place] [address] documented as of this encounter Visit Diagnoses Not on filedocumented in this encounter Care Teams Aviation Tactical Readiness Officer Relationship Specialty Start Date End Date Casa Encarnacion MD PCP - General 12/12/15 documented as of this encounter
--- OUTSIDE RECORDS SUMMARY | 2024-09-08 21:07 | XMS_ITS | Encounter Summary ---
Author Organization [facility] Health Address [address] [facility] [place] [address] Care Team Providers Care Retail Performance Specialist Name Role Phone Casa Encarnacion MD Primary Care Provider [phone] Reason for Visit * Reason Comments Refill Request Encounter Details Date Type Department Care Team (Late st Contact Info) Description 01/10/2021 Refill [facility] [address] [facility] [address] [place] [address] Aye Dao MD [address] [facility] [address] [place] [address] Refill Request Social History Tobacco [...] 05/24/2025 2:00 PM CDT Office Visit [facility] - SHELLAC POLISHER [address], [facility] 200 [place] [address] Aye Dao MD [address] [facility] 400 [place] [address] documented as of this encounter Visit Diagnoses Diagnosis Vulvodynia documented in this encounter Care Teams Retail Performance Specialist Relationship Specialty Start Date End Date Casa Encarnacion MD PCP - General 12/12/15 documented as of this encounter
--- OUTSIDE RECORDS SUMMARY | 2024-09-08 21:07 | XMS_ITS | Encounter Summary ---
Author Organization [facility] Address [address] [facility] [place] [address] Care Team Providers Care Golf Course Superintendent Name Role Phone Casa Encarnacion MD Primary Care Provider [phone] Encounter Details Date Type Department Care Team (Late Contact Info) Description 11/01/2020 Orders Only [facility] - COVID Vaccine [address] [place] [address] Jose Rodriguez MD [address] [place], [place] [id number] Need for vaccination Social History Tobacco Use [...] Description 05/24/2025 2:00 PM CDT Office Visit [facility] - PHOTOCOPIER TECHNICIAN [address], [facility] 200 [place] [address] Aye Dao MD [address] [facility] 400 [place] [address] documented as of this encounter Visit Diagnoses Diagnosis Need for vaccination Need for prophylactic vaccination and inoculation against unspecified single disease documented in this encounter Care Teams Golf Course Superintendent Relationship Specialty Start Date End Date Casa Encarnacion MD PCP - General 12/12/15 documented as of this encounter
--- OUTSIDE RECORDS SUMMARY | 2024-09-08 21:07 | XMS_ITS | Encounter Summary ---
Author Organization [facility] Health Address [address] [facility] [place] [address] Care Team Providers Care Employment Consultant Name Role Phone Casa Encarnacion MD Primary Care Provider [phone] Reason for Visit * Reason Onset Date Comments Med Question 09/13/2022 Encounter Details Date Type Department Care Team (Late st Contact Info) Description 09/13/2022 Telephone [facility]'s [facility] [address] [place] [address] Aye Dao MD 1031 [facility] 400 [place] [address] Med Question Social History Tobacco [...] you again. Please call back next week. L BLOCK PRESS OPERATOR * Telephone Encounter - Tobias Mora RN - 09/13/2022 3:16 PM CST LM on a re: Returning call. Sorry I missed you. Will try and call again before day is over. L BLOCK PRESS OPERATOR * Telephone Encounter - StevieThania hemphill - 09/13/2022 2:17 PM CST Pt called. She is suffering today. Having pain and discomfort. Dr. Zhao instructed her to stop taking the Nystatin and it seemed to be helping. Pt kindly asked if a nurse would please call her to give her instructions on what to do. CB: [phone] Thank you so much L BLOCK PRESS OPERATOR documented in this encounter Plan of Treatment Upcoming Encounters Date Type Department Care Team (Late st Contact Info) Description 05/24/2025 2:00 PM CDT Office Visit [facility] - GROUNDS PERSON 1031 [facility] 200 [place] [address] Aye Dao MD 1031 [facility] 400 [place] [address] documented as of this encounter Visit Diagnoses Not on filedocumented in this encounter Care Teams Employment Consultant Relationship Specialty Start Date End Date Casa Encarnacion MD PCP - General 12/12/15 documented as of this encounter
--- OUTSIDE RECORDS SUMMARY | 2024-09-08 21:07 | XMS_ITS | Encounter Summary ---
Author Organization [facility] Health Address [address] [facility] [place] [address] Care Team Providers Care Junior Data Analyst Name Role Phone Casa Encarnacion MD Primary Care Provider [phone] Reason for Visit * Reason Onset Date Comments Medication Issue 01/22/2022 Encounter Details Date Type Department Care Team (Late st Contact Info) Description 01/22/2022 Telephone [facility]cology [facility]'s [facility] [address] [place] [address] Aye Dao MD 1031 [facility] 400 [place] [address] Medication Issue Social History Tobacco [...] of it. * Telephone Encounter - Celena Joel - 01/22/2022 9:47 AM CDT Pt called in stating that she would like to speak to Dr Zhao's nurse because she has questions regarding her medications. Pt callback# [phone] documented in this encounter Plan of Treatment Upcoming Encounters Date Type Department Care Team (Late st Contact Info) Description 05/24/2025 2:00 PM CDT Office Visit [facility] - QUOTATION CHECKER [address], [facility] 200 [place] [address] Aye Dao MD [address] [facility] 400 [place] [address] documented as of this encounter Visit Diagnoses Not on filedocumented in this encounter Care Teams Junior Data Analyst Relationship Specialty Start Date End Date Casa Encarnacion MD PCP - General 12/12/15 documented as of this encounter
--- OUTSIDE RECORDS SUMMARY | 2024-09-08 21:07 | XMS_ITS | Encounter Summary ---
Author Organization [facility] Health Address [address] [facility] [place] [address] Care Team Providers Care Shirt Maker Name Role Phone Casa Encarnacion MD Primary Care Provider [phone] Reason for Visit * Reason Onset Date Comments Pain Urinary 04/10/2021 Encounter Details Date Type Department Care Team (Late st Contact Info) Description 04/10/2021 Telephone [facility] 1031 [place] [address] Aye Dao MD 1031 [facility] 400 [place] [address] Pain Urinary Social History Tobacco [...] and itching sensation in vaginal area CB# [phone] documented in this encounter Plan of Treatment Upcoming Encounters Date Type Department Care Team (Late st Contact Info) Description 05/24/2025 2:00 PM CDT Office Visit [facility] - SALES AND SERVICE CHANGE LEADER 1031 [facility], [facility] 200 [place] [address] Aye Dao MD 10[address] [facility] 400 [place] [address] documented as of this encounter Visit Diagnoses Not on filedocumented in this encounter Care Teams Shirt Maker Relationship Specialty Start Date End Date Casa Encarnacion MD PCP - General 12/12/15 documented as of this encounter
--- OUTSIDE RECORDS SUMMARY | 2024-09-08 21:07 | XMS_ITS | Encounter Summary ---
Author Organization [facility] Health Address [address] [facility] [place] [address] Care Team Providers Care Box Blank Machine Feeder Name Role Phone Casa Encarnacion MD Primary Care Provider [phone] Reason for Visit * Reason Onset Date Comments Med Question 08/19/2022 Encounter Details Date Type Department Care Team (Late st Contact Info) Description 08/19/2022 Telephone [facility] 1031 [facility] [address] [place], [place] [id number] Aye Dao MD [address] [facility] [address] [place] [address] Med Question Social History Tobacco [...] Marilin Alvarado RN - 08/20/2022 1:44 PM BICYCLE MESSENGER Return call to patient Notified her of [...] and is grateful for the return call. CLE MESSENGER * Telephone Encounter - Radha Baker - 08/20/2022 10:37 AM CST Pt called back stating that the Nystatin is actually causing a burning sensation. Pt is still requesting Diflucan. Pt can be reached at . CLE MESSENGER * Telephone Encounter - Aye Leonard MD - 08/20/2022 10:27 AM BICYCLE MESSENGER If she thinks she has a yeast infection she needs to use the nystatin vaginal capsule 7 nights in arow. The last culture was actually negative for yeast. The culture in the past that was positive, showed that the favian albicans yeast she had was totally resistant to the fluconazole. So she does not need to ever get this again. CLE MESSENGER * Telephone Encounter - Marilin Alvarado RN - 08/19/2022 4:42 PM BICYCLE MESSENGER Return call to patient When asked what [...] back in touch with patient tomorrow Agreeable CLE MESSENGER * Telephone Encounter - Thania Slater - 08/19/2022 3:32 PM CST Pt called and asked to have Dr. Leonard's nurse to please call her. She says her Nystatin is not working. Pt said she has used Diflucan in the past and had successful results. CB: [phone] Thank you CLE MESSENGER documented in this encounter Plan of Treatment Upcoming Encounters Date Type Department Care Team (Late st Contact Info) Description 05/24/2025 2:00 PM CDT Office Visit [facility] - ASSEMBLER FILTERS 1031 [facility] 200 [place] [address] Aye Dao MD 1031 [facility] 400 [place] [address] documented as of this encounter Visit Diagnoses Not on filedocumented in this encounter Care Teams Box Blank Machine Feeder Relationship Specialty Start Date End Date Casa Encarnacion MD PCP - General 12/12/15 documented as of this encounter
--- OUTSIDE RECORDS SUMMARY | 2024-09-08 21:07 | XMS_ITS | Encounter Summary ---
Author Organization [facility] Health Address [address] [facility] [address] Care Team Providers Care Realtime Reporter Name Role Phone Casa Encarnacion MD Primary Care Provider [phone] Reason for Visit * Reason Onset Date Comments Nurse Only 02/07/2022 Encounter Details Date Type Department Care Team (Late st Contact Info) Description 02/07/2022 Telephone [facility]'s [facility] 1031 [place] [address] Aye Dao MD 1031 [facility] 400 [place] [address] Nurse Only Social History Tobacco [...] [facility] - MORTGAGE FIELD INSPECTOR [address], [facility] 200 [place] [address] Aye Dao MD [address] [facility] 400 [place] [address] documented as of this encounter Visit Diagnoses Not on filedocumented in this encounter Care Teams Realtime Reporter Relationship Specialty Start Date End Date Casa Encarnacion MD PCP - General 12/12/15 documented as of this encounter
--- OUTSIDE RECORDS SUMMARY | 2024-09-08 21:07 | XMS_ITS | Encounter Summary ---
Author Organization [facility] Address [address] [facility] [place] [address] Care Team Providers Care Contracts Specialist Name Role Phone Casa Encarnacion MD Primary Care Provider [phone] Reason for Visit * Reason Onset Date Comments Medication Problem 03/05/2022 Pt would like a Nurse call due to medication problem Encounter Details Date Type Department Care Team (Late st Contact Info) Description 03/05/2022 Telephone [facility] - CONTINUOUS CONVEYOR SCREEN DRIER [address] [address] Aye Dao MD [address] [place] [address] Medication Problem (Pt would like a [...] Description 05/24/2025 2:00 PM CDT Office Visit [facility] - CONTINUOUS CONVEYOR SCREEN DRIER [address], [facility] 200 [place] [address] Aye Dao MD 1031 [facility] 400 [place] [address] documented as of this encounter Visit Diagnoses Not on filedocumented in this encounter Care Teams Contracts Specialist Relationship Specialty Start Date End Date Casa Encarnacion MD PCP - General 12/12/15 documented as of this encounter
--- OUTSIDE RECORDS SUMMARY | 2024-09-08 21:07 | XMS_ITS | Encounter Summary ---
Author Organization [facility] Address [facility] [place] [address] Care Team Providers Care Sheet Metal Welder Name Role Phone Casa Encarnacion MD Primary Care Provider [phone] Reason for Visit * Reason Onset Date Comments Treatment 04/11/2021 Encounter Details Date Type Department Care Team (Late st Contact Info) Description 04/11/2021 Telephone [facility] - MOLD YARD WORKER [address] [address] Aye Dao MD [address] [place] [address] Treatment Social History Tobacco Use Types [...] explained - she can see her local CABLE FERRYBOAT OPERATOR we need a yeast culture and sensitivity. [...] 05/24/2025 2:00 PM CDT Office Visit [facility] - MOLD YARD WORKER [address] [facility] 200 [place] [address] Aye Dao MD 1031 [facility] 400 [place] [address] documented as of this encounter Visit Diagnoses Not on filedocumented in this encounter Care Teams Sheet Metal Welder Relationship Specialty Start Date End Date Casa Encarnacion MD PCP - General 12/12/15 documented as of this encounter
--- OUTSIDE RECORDS SUMMARY | 2024-09-08 21:08 | XMS_ITS | Encounter Summary ---
Author Organization [facility] Health Address [address] [facility] [place] [address] Care Team Providers Care Senior Supply Chain Analyst Name Role Phone Casa Encarnacion MD Primary Care Provider [phone] Reason for Visit * Reason Onset Date Comments Follow-up 11/10/2018 Encounter Details Date Type Department Care Team (Late st Contact Info) Description 11/10/2018 Telephone [facility] [address] [place] [address] Aye Dao MD [address] [facility] 400 [place] [address] Follow-up Social History Tobacco Use [...] Marilin Alvarado RN - 11/10/2018 8:45 AM PROCUREMENT SPECIALIST Phone call to patient who was incorrectly [...] Dr Leonard Aware to call with needs UREMENT SPECIALIST documented in this encounter Plan of Treatment Upcoming Encounters Date Type Department Care Team (Late st Contact Info) Description 05/24/2025 2:00 PM CDT Office Visit [facility] - PUMP PRESS OPERATOR [address], [facility] 200 [place] [address] Aye Dao MD [address] [facility] 400 [place] [address] documented as of this encounter Visit Diagnoses Not on filedocumented in this encounter Care Teams Senior Supply Chain Analyst Relationship Specialty Start Date End Date Casa Encarnacion MD PCP - General 12/12/15 documented as of this encounter
--- OUTSIDE RECORDS SUMMARY | 2024-09-08 21:08 | XMS_ITS | Encounter Summary ---
Author Organization [facility] Health Address [address] [facility] [place] [address] Care Team Providers Care Economic Specialist Name Role Phone Casa Encarnacion MD Primary Care Provider [phone] Reason for Visit * Reason Onset Date Comments UTI 05/27/2019 Returned Call 05/27/2019 Encounter Details Date Type Department Care Team (Late st Contact Info) Description 05/27/2019 Telephone [facility] [address] [facility] [address] [place] [address] Aye Dao MD 1031 [facility] [address] [place] [address] UTI; Returned Call Social History [...] urine cx's to Dr. Alba office in [place]: Confirmed Fax# for [place] Office: [phone]. * Telephone Encounter - Whitley Fenton - [...] Description 05/24/2025 2:00 PM CDT Office Visit [facility] - CORRECTIONAL PROGRAM OFFICER [address], [facility] 200 [place] [address] Aye Dao MD [address] [facility] 400 [place] [address] documented as of this encounter Visit Diagnoses Diagnosis Acute cystitis without hematuria- Primary Acute cystitis documented in this encounter Care Teams Economic Specialist Relationship Specialty Start Date End Date Casa Encarnacion MD PCP - General 12/12/15 documented as of this encounter
--- OUTSIDE RECORDS SUMMARY | 2024-09-08 21:08 | XMS_ITS | Encounter Summary ---
Author Organization [facility] Health Address [address] [place] [address] Care Team Providers Care Engineering Operator Name Role Phone Casa Encarnacion MD Primary Care Provider [phone] Reason for Visit * Reason Onset Date Comments Medication Prior Auth Request 05/28/2019 Encounter Details Date Type Department Care Team (Late st Contact Info) Description 05/28/2019 Telephone [facility] [address] [place] [address] Aye Dao MD 1031 [facility] 400 [place] [address] Medication Prior Auth Request Social [...] PM CDT VIKY armijo w/ [facility]. [phone]. Ref # [id number] Talked to Lesa. Asked for expedited decision. * Telephone Encounter - Tobias Mora RN - 05/28/2019 12:19 PM CDT [facility] called to clarify Diflucan rx. Advised : please don't fill the Diflucan. Provider is ordering Itraconazole instead. Reviewed directions. Asked to fax a PA request if one generates to [phone]. * Telephone Encounter - Aye Zhao MD [...] 05/24/2025 2:00 PM CDT Office Visit [facility] - HITTING COACH [address], [facility] 200 [place] [address] Aye Dao MD [address] [facility] 400 [place] [address] documented as of this encounter Visit Diagnoses Diagnosis Yeast infection involving the vagina and surrounding area- Primary Candidiasis of vulva and vagina documented in this encounter Care Teams Engineering Operator Relationship Specialty Start Date End Date Casa Encarnacion MD PCP - General 12/12/15 documented as of this encounter
--- OUTSIDE RECORDS SUMMARY | 2024-09-08 21:08 | XMS_ITS | Encounter Summary ---
Author Organization [facility] Health Address [address] [facility] [address] Care Team Providers Care Door To Door Salesperson Name Role Phone Casa Encarnacion MD Primary Care Provider [phone] Reason for Visit * Reason Onset Date Comments Insurance Issue/question 11/30/2018 Encounter Details Date Type Department Care Team (Late st Contact Info) Description 11/30/2018 Telephone [facility] [address] [place] [address] Aye Dao MD [address] [facility] [address] [place] [address] Insurance Issue/question Social History Tobacco [...] - this was needed. She has a casework supervisor for her insurance . Keya Alejo. Her cell number is [phone]. I spoke with Keya. 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 She is needinga letter stating why the patient is using it. It is to be faxed to [phone]. We will take care of it. Letter written and faxed. * Telephone Encounter - Caitie Tomlinson - 11/30/2018 11:40 AM CDT Pt called requesting to speak to a nurse regarding her insurance. She didn't give me any more information. Pt callback# [phone] documented in this encounter Plan of Treatment Upcoming Encounters Date Type Department Care Team (Late st Contact Info) Description 05/24/2025 2:00 PM CDT Office Visit [facility] - TEST LAB TECHNICIAN [address], [facility] 200 [place] [address] Aye Dao MD [address] [facility] [address] [place] [address] documented as of this encounter Visit Diagnoses Not on filedocumented in this encounter Care Teams Door To Door Salesperson Relationship Specialty Start Date End Date Casa Encarnacion MD PCP - General 12/12/15 documented as of this encounter
--- OUTSIDE RECORDS SUMMARY | 2024-09-08 21:08 | XMS_ITS | Encounter Summary ---
Author Organization [facility] Health Address [address] [facility] [place] [address] Care Team Providers Care Shop Technician Name Role Phone Casa Encarnacion MD Primary Care Provider [phone] Reason for Visit * Reason Onset Date Comments Med Question 09/28/2018 Encounter Details Date Type Department Care Team (Late st Contact Info) Description 09/28/2018 Telephone [facility] [address] [place] [address] Aye Dao MD [address] [address] Med Question Social History Tobacco [...] Marilin Alvarado RN - 09/28/2018 11:24 AM SLACK COOPER Finished the diflucan, things still not great Itching and discomfort Offered a Friday appointment per her request 10/07/18 at 10:50 am Reminder mailed Agreeable For now will continue Crisco use daily K COOPER * Telephone Encounter - Elisa Anne - 09/28/2018 9:21 AM CST Pt wants to talk with someone re the batsheva and also states she's not feeling very well. Call back # [phone] K COOPER documented in this encounter Plan of Treatment Upcoming Encounters Date Type Department Care Team (Late st Contact Info) Description 05/24/2025 2:00 PM CDT Office Visit [facility] - CASHIER HOST/HOSTESS 10[address] [facility], [facility] 200 [place] [address] Aye Dao MD 1031 [facility] 400 [place] [address] documented as of this encounter Visit Diagnoses Not on filedocumented in this encounter Care Teams Shop Technician Relationship Specialty Start Date End Date Casa Encarnacion MD PCP - General 12/12/15 documented as of this encounter
--- OUTSIDE RECORDS SUMMARY | 2024-09-08 21:08 | XMS_ITS | Encounter Summary ---
Author Organization [facility] Health Address [address] [facility] [place] [address] Care Team Providers Care Wildlife Conservationist Name Role Phone Casa Encarnacion MD Primary Care Provider [phone] Reason for Visit * Reason Onset Date Comments Results 10/30/2018 Encounter Details Date Type Department Care Team (Late st Contact Info) Description 10/30/2018 Telephone [facility] [address] [facility] [address] [place] [address] Aye Dao MD [address] [facility] [address] [place] [address] Results Social History Tobacco Use [...] Marilin Alvarado RN - 10/30/2018 2:43 PM CHURN DRILLER Return call to patient Notified her of the Dr Leonard reply Patient agreeable aware to continue the sitz baths and crisco If symptoms return will need another urine culture before any antibiotic or any fluconazole given Verbalizes understanding N DRILLER * Telephone Encounter - Aye Leonard MD - 10/30/2018 8:43 AM CST Urine culture is negative. Had told patient and her daughter, that if symptoms persist into next week, will need to recheck another culture. To let us know. N DRILLER documented in this encounter Plan of Treatment Upcoming Encounters Date Type Department Care Team (Late st Contact Info) Description 05/24/2025 2:00 PM CDT Office Visit [facility] - SOUP MIXER [address], [facility] 200 [place] [address] Aye Dao MD [address] [facility] 400 [place] [address] documented as of this encounter Visit Diagnoses Not on filedocumented in this encounter Care Teams Wildlife Conservationist Relationship Specialty Start Date End Date Casa Encarnacion MD PCP - General 12/12/15 documented as of this encounter
--- OUTSIDE RECORDS SUMMARY | 2024-09-08 21:08 | XMS_ITS | Encounter Summary ---
Author Organization [facility] Health Address [address] [facility] [place] [address] Care Team Providers Care Dipping Machine Operator Name Role Phone Casa Encarnacion MD Primary Care Provider [phone] Reason for Visit * Reason Onset Date Comments UTI 01/04/2019 Encounter Details Date Type Department Care Team (Late st Contact Info) Description 01/04/2019 Telephone [facility] [address] [place] [address] Aye Dao MD [address] [address] UTI Social History Tobacco Use [...] UTI Remembers she once left urine at [facility] [phone] Not real bad symptoms but concerned it [...] Pt would like something called in to [facility]. Pt would like call back Callback#[phone] documented in this encounter Plan of Treatment Upcoming Encounters Date Type Department Care Team (Late st Contact Info) Description 05/24/2025 2:00 PM CDT Office Visit [facility] - DESIGN ENGINEERING TECHNICIAN 10[address] [facility] 200 [place] [address] Aye Dao MD [address] [facility] 400 [place] [address] documented as of this encounter Procedures Procedure Name Priority Date/Time Associated Diagnosis Comments CULTURE URINE Routine 01/04/2019 1:28 PM CDT Abnormal urinalysis documented in this encounter Results * (ABNORMAL) CULTURE URINE (01/04/2019 1:28 PM CDT) Culture (A) [facility] Comment: ??CULTURE, URINE, ROUTINE ?MICRO NUMBER: ?[id number] ??TEST STATUS: ? FINAL ??SPECIMEN SOURCE: ?? [...] staphylococcal indications, including ?Cefazolin. Test Performed at: [email or web address] [address] [place], [place] ??[address] ZORAIDA TYLER MD Urine URINE SPECIMEN OBTAINED BY CLEAN CATCH PROCEDURE / Unknown 01/04/2019 1:28 PM CDT 01/04/2019 1:34 PM CDT Aye Dao MD LAB - MICROBIOLOGY ORDERABLES Performing Organization Address City/State/[facility] Co de Phone Number [facility] [address] [place] [address] documented in this encounter Visit Diagnoses Diagnosis Abnormal urinalysis- Primary Other nonspecific finding on examination of urine documented in this encounter Care Teams Dipping Machine Operator Relationship Specialty Start Date End Date aCsa Encarnacion MD PCP - General 12/12/15 documented as of this encounter
--- OUTSIDE RECORDS SUMMARY | 2024-09-08 21:08 | XMS_ITS | Encounter Summary ---
Author Organization [facility] Health Address [address] [place] [address] Care Team Providers Care Gettering Filament Machine Operator Name Role Phone Casa Encarnacion MD Primary Care Provider [phone] Reason for Visit * Reason Onset Date Comments Med Question 04/01/2019 Encounter Details Date Type Department Care Team (Late st Contact Info) Description 04/01/2019 Telephone [facility] [address] [place] [address] Aye Dao MD 10[address] [facility] 400 [place] [address] Med Question Social History Tobacco [...] like a call from the nurse. Cb# [phone] documented in this encounter Plan of Treatment Upcoming Encounters Date Type Department Care Team (Late st Contact Info) Description 05/24/2025 2:00 PM CDT Office Visit [facility] - INFANTRY WEAPONS OFFICER [address], [facility] 200 [place] [address] Aye Dao MD [address] [facility] 400 [place] [address] documented as of this encounter Visit Diagnoses Not on filedocumented in this encounter Care Teams Gettering Filament Machine Operator Relationship Specialty Start Date End Date Casa Encarnacion MD PCP - General 12/12/15 documented as of this encounter
--- OUTSIDE RECORDS SUMMARY | 2024-09-08 21:08 | XMS_ITS | Encounter Summary ---
Author Organization [facility] Health Address [address] [facility] [place] [address] Care Team Providers Care Supervisor Ride Assembly Name Role Phone Casa Encarnacion MD Primary Care Provider [phone] Reason for Visit * Reason Comments Refill Request Encounter Details Date Type Department Care Team (Late Contact Info) Description 06/29/2018 Refill [facility] [address] [place] [address] Aye Dao MD [address] [address] Refill Request Social History Tobacco [...] Visit [facility] - LAUNDRY CLERK [address], [address] [place] [address] Aye Dao MD [address] [facility] 400 [place] [address] documented as of this encounter Visit Diagnoses Not on filedocumented in this encounter Care Teams Supervisor Ride Assembly Relationship Specialty Start Date End Date Casa Encarnacion MD PCP - General 12/12/15 documented as of this encounter
--- OUTSIDE RECORDS SUMMARY | 2024-09-08 21:08 | XMS_ITS | Encounter Summary ---
Author Organization [facility] Health Address [address] [facility] [place] [address] Care Team Providers Care Internal Grinder Tender Name Role Phone Casa Encarnacion MD Primary Care Provider Reason for Visit * Reason Onset Date Comments Order 05/25/2019 Urine Check 05/25/2019 Encounter Details Date Type Department Care Team (Late st Contact Info) Description 05/25/2019 Telephone [facility] [address] [place] [address] Aye Dao MD [address] [address] Order; Urine Check Social History [...] Telephone Encounter - Iris Lundy LPN - 05/25/2019 10:16 AM CDT [...] tested. To send the order fax to: [phone] ([facility]) Please call the patient once completed. Call back # [phone] documented in this encounter Plan of Treatment Upcoming Encounters Date Type Department Care Team (Late st Contact Info) Description 05/24/2025 2:00 PM CDT Office Visit [facility] - NURSING TECHNICIAN [address], [facility] 200 [place] [address] Aye Dao MD [address] [place] [address] documented as of this encounter Procedures Procedure Name Priority Date/Time Associated Diagnosis Comments CULTURE URINE Routine 05/25/2019 11:13 AM CDT Acute cystitis without hematuria documented in this encounter Results * (ABNORMAL) CULTURE URINE (05/25/2019 11:13 AM CDT) Culture (A) [facility] Comment: ??CULTURE, URINE, ROUTINE ?MICRO NUMBER: ?[id number] ??TEST STATUS: ? FINAL ??SPECIMEN SOURCE: ?? [...] or P. mirabilis: ?Cefazolin is resistant if ELO > or = 8 mcg/mL. ?(Distinguishing susceptible versus intermediate ?for isolates with LEO < or = 4 mcg/mL requires ?additional testing.) ?Note 2: ?For uncomplicated UTI caused by E. coli, ?K. pneumoniae or P. mirabilis: Cefazolin is ?susceptible if LEO <32 mcg/mL and predicts ?susceptible to the oral agents cefaclor, cefdinir, ?cefpodoxime, cefprozil, cefuroxime, cephalexin ?and loracarbef. Test Performed at: [facility] ??[address] ZORAIDA TYLER MD Urine URINE SPECIMEN OBTAINED BY CLEAN CATCH PROCEDURE / Unknown 05/25/2019 11:13 AM CDT 05/25/2019 11:14 AM CDT Aye Dao MD LAB - MICROBIOLOGY ORDERABLES Performing Organization Address City/State/[facility] Co de Phone Number [facility] [address] [place] [address] documented in this encounter Visit Diagnoses Diagnosis Acute cystitis without hematuria- Primary Acute cystitis documented in this encounter Care Teams Internal Grinder Tender Relationship Specialty Start Date End Date Casa Encarnacion MD PCP - General 12/12/15 documented as of this encounter
--- OUTSIDE RECORDS SUMMARY | 2024-09-08 21:08 | XMS_ITS | Encounter Summary ---
Author Organization [facility] Health Address [address] [place] [address] Care Team Providers Care Die Set Up Worker Name Role Phone Casa Encarnacion MD Primary Care Provider [phone] Reason for Visit * Reason Onset Date Comments Question 10/15/2018 Encounter Details Date Type Department Care Team (Late st Contact Info) Description 10/15/2018 Telephone [facility] [address] [place], [place] [id number] Aye Dao MD [address] [address] Question Social History Tobacco Use [...] Dr. Zhao contacted pt and ordered treatment. OSING MACHINE OPERATOR * Telephone Encounter - Tobias Mora [...] sample. She agrees to plan. Verbalized understanding. OSING MACHINE OPERATOR * Telephone Encounter - Aye Zhao MD [...] [facility] and get a urine culture. CL OSING MACHINE OPERATOR * Telephone Encounter - Bert Ortiz - 10/15/2018 12:45 PM CST Pt would like to speak with the nurse because she is having the same problems she has been having. Callback#[phone] OSING MACHINE OPERATOR documented in this encounter Plan of Treatment Upcoming Encounters Date Type Department Care Team (Late st Contact Info) Description 05/24/2025 2:00 PM CDT Office Visit [facility] - PLASMA PROCESSING CENTRIFUGE OPERATOR [address], [address] [place] [address] Aye Dao MD [address] [place] [address] documented as of this encounter Procedures Procedure Name Priority Date/Time Associated Diagnosis Comments CULTURE URINE Routine 10/16/2018 2:02 PM COMPOSING MACHINE OPERATOR Acute cystitis without hematuria documented in this encounter Results * (ABNORMAL) CULTURE URINE (10/16/2018 2:02 PM COMPOSING MACHINE OPERATOR) Culture (A) [facility] Comment: ??CULTURE, URINE, ROUTINE ?MICRO NUMBER: ?[id number] ??TEST STATUS: ? FINAL ??SPECIMEN SOURCE: ?? URINE, CLEAN CATCH ??SPECIMEN QUALITY: ??ADEQUATE ??RESULT: ?Greater than 100,000 CFU/mL of Enterococcus species ?Enterococcus sp. ?INT ?? LEO ?? AMPICILLIN ? S ? <=2 ?? NITROFURANTOIN ? I ? 64 ?? VANCOMYCIN ? S ? <=0.5 S=Susceptible ??I=Intermediate ??R=Resistant ??* = Not Tested NR = Not Reported ??NN = See Therapy Comments Test Performed at: [facility] ??[address] ZORAIDA TYLER MD Urine URINE SPECIMEN OBTAINED BY CLEAN CATCH PROCEDURE / Unknown 10/16/2018 2:02 PM COMPOSING MACHINE OPERATOR 10/16/2018 2:02 PM COMPOSING MACHINE OPERATOR Aye Doa MD LAB - MICROBIOLOGY ORDERABLES Performing Organization Address City/State/[facility] Co de Phone Number [address] [address] documented in this encounter Visit Diagnoses Diagnosis Acute cystitis without hematuria- Primary Acute cystitis documented in this encounter Care Teams Die Set Up Worker Relationship Specialty Start Date End Date Casa Encarnacion MD PCP - General 12/12/15 documented as of this encounter
--- OUTSIDE RECORDS SUMMARY | 2024-09-08 21:08 | XMS_ITS | Encounter Summary ---
Author Organization [facility] Health Address [address] [facility] [place] [address] Care Team Providers Care Silo Erector Name Role Phone Casa Encarnacion MD Primary Care Provider [phone] Reason for Visit * Reason Onset Date Comments Patient Requested Call 10/05/2018 Encounter Details Date Type Department Care Team (Late st Contact Info) Description 10/05/2018 Telephone [facility] [address] [place] [address] Aye Dao MD 1031 [facility] 400 [place] [address] Patient Requested Call Social History [...] Marilin Alvarado RN - 10/06/2018 9:21 AM MACHINE III COREMAKER Requests change in appointment Cancel 10/[address] Leonard 10/13/18 at 10:30 am INE III COREMAKER * Telephone Encounter - Dominique Dimas - 10/05/2018 11:32 AM CST Pt would like a cb from a nurse, would not specify what it was in regards to. CB# [phone] INE III COREMAKER documented in this encounter Plan of Treatment Upcoming Encounters Date Type Department Care Team (Late st Contact Info) Description 05/24/2025 2:00 PM CDT Office Visit [facility] - IT COMMUNICATIONS MANAGER 10[address] [facility], [facility] 200 [place] [address] Aye Dao MD [address] [facility] 400 [place] [address] documented as of this encounter Visit Diagnoses Not on filedocumented in this encounter Care Teams Silo Erector Relationship Specialty Start Date End Date Casa Encarnacion MD PCP - General 12/12/15 documented as of this encounter
--- OUTSIDE RECORDS SUMMARY | 2024-09-08 21:08 | XMS_ITS | Encounter Summary ---
Author Organization [facility] Health Address [address] [facility] [place] [address] Care Team Providers Care Branch Or Department Chief Librarian Name Role Phone Casa Encarnacion MD Primary Care Provider [phone] Reason for Visit * Reason Onset Date Comments Abnormal Results Follow Up 01/07/2019 Encounter Details Date Type Department Care Team (Late st Contact Info) Description 01/07/2019 Telephone [facility] [address] [facility] [address] [place], [place] [id number] Aye Dao MD [address] [facility] [address] [place] [address] Abnormal Results Follow Up Social [...] urology for frequent UTIs (can't get to [facility] easily) Very grateful for Dr Leonard's care [...] 05/24/2025 2:00 PM CDT Office Visit [facility] - SEA FOAM KISS MAKER [address], [facility] 200 [place] [address] Aye Dao MD 1031 [facility] 400 [place] [address] documented as of this encounter Visit Diagnoses Diagnosis Acute cystitis without hematuria- Primary Acute cystitis Vulvar burning Unspecified symptom associated with female genital organs documented in this encounter Care Teams Branch Or Department Chief Librarian Relationship Specialty Start Date End Date Casa Encarnacion MD PCP - General 12/12/15 documented as of this encounter
--- OUTSIDE RECORDS SUMMARY | 2024-09-08 21:08 | XMS_ITS | Encounter Summary ---
Author Organization [facility] Health Address [address] [place] [address] Care Team Providers Care Line Helper Name Role Phone Casa Encarnacion MD Primary Care Provider [phone] Reason for Visit * Reason Onset Date Comments Pain 10/21/2018 Vulvar Pain 10/21/2018 Encounter Details Date Type Department Care Team (Late st Contact Info) Description 10/21/2018 Telephone [facility] [address] [place] [address] Aye Dao MD 1031 [facility] 400 [place] [address] Pain; Vulvar Pain Social History [...] Marilin Alvarado RN - 10/21/2018 4:48 PM DOUBLE ENDING MACHINE OPERATOR Patient so very happy to know that Dr Leonard sent script for Diflucan As one every other day for 3 doses total She will start that tomorrow Will finish the ampicillin as ordered LE ENDING MACHINE OPERATOR * Telephone Encounter - Aye Leonard MD - 10/21/2018 4:33 PM CST Script for Diflucan 200 mg tablet, one by mouth every other day for three doses sent to pharmacy. LE ENDING MACHINE OPERATOR * Telephone Encounter - Katty Murphy - 10/21/2018 1:20 PM CST Pt called stating that she is having a lot of pain around her vulva area. Pt would like a medication for the pain. Callback#[phone] LE ENDING MACHINE OPERATOR documented in this encounter Plan of Treatment Upcoming Encounters Date Type Department Care Team (Late st Contact Info) Description 05/24/2025 2:00 PM CDT Office Visit [facility] - HUMAN INSIGHTS LEAD ADS MARKETING [address] [facility] [address] [place] [address] Aye Dao MD 1031 [facility] [address] [place] [address] documented as of this encounter Visit Diagnoses Diagnosis Vulvar burning- Primary Unspecified symptom associated with female genital organs documented in this encounter Care Teams Line Helper Relationship Specialty Start Date End Date Casa Encarnacion MD PCP - General 12/12/15 documented as of this encounter
--- OUTSIDE RECORDS SUMMARY | 2024-09-08 21:08 | XMS_ITS | Encounter Summary ---
Author Organization [facility] Address [address] [facility] [place] [address] Care Team Providers Care Mine Administrator Supervisor Name Role Phone Casa Encarnacion MD Primary Care Provider [phone] Reason for Visit * Reason Onset Date Comments Patient Requested Call 02/19/2019 Bladder infection 02/19/2019 Encounter Details Date Type Department Care Team (Late st Contact Info) Description 02/19/2019 Telephone [facility] - AXLE AND FRAME MECHANIC [address] [address] Aye Dao MD [address] [place] [address] Patient Requested Call; Bladder infection Social [...] might be a bladder infection. Pt cb# [phone] documented in this encounter Plan of Treatment Upcoming Encounters Date Type Department Care Team (Late st Contact Info) Description 05/24/2025 2:00 PM CDT Office Visit [facility] - AXLE AND FRAME MECHANIC [address], [facility] 200 [place] [address] Aye Dao MD [address] [facility] 400 [place] [address] documented as of this encounter Procedures Procedure Name Priority Date/Time Associated Diagnosis Comments CULTURE URINE Routine 02/19/2019 3:44 PM CDT Acute cystitis without hematuria Recurrent UTI (urinary tract infection) documented in this encounter Results * CULTURE URINE (02/19/2019 3:44 PM CDT) Culture [facility] Comment: ??CULTURE, URINE, ROUTINE ?MICRO NUMBER: ?[id number] ??TEST STATUS: ? FINAL ??SPECIMEN SOURCE: ?? URINE, CLEAN CATCH ??SPECIMEN QUALITY: ??ADEQUATE ??RESULT: ?Multiple organisms present, each less than 10,000 ? CFU/mL. These organisms, commonly found on ? external and internal genitalia, are considered ? to be colonizers. No further testing performed. Test Performed at: [facility] ??[id number] ZORAIDA TYLER MD Urine URINE SPECIMEN OBTAINED BY CLEAN CATCH PROCEDURE / Unknown 02/19/2019 3:44 PM CDT 02/20/2019 12:36 AM CDT Aye Dao MD LAB - MICROBIOLOGY ORDERABLES [address] [address] documented in this encounter Visit Diagnoses Diagnosis Acute cystitis without hematuria- Primary Acute cystitis Recurrent UTI (urinary tract infection) Urinary tract infection, site not specified Vulvar burning Unspecified symptom associated with female genital organs Vulvovaginal itching Pruritus of genital organs documented in this encounter Care Teams Mine Administrator Supervisor Relationship Specialty Start Date End Date Casa Encarnacion MD PCP - General 12/12/15 documented as of this encounter
--- OUTSIDE RECORDS SUMMARY | 2024-09-08 21:08 | XMS_ITS | Encounter Summary ---
Author Organization [facility] Address [facility] [facility] [place] [address] Care Team Providers Care Rivet Tester Name Role Phone Casa Encarnacion MD Primary Care Provider [phone] Reason for Visit * Reason Onset Date Comments Med Question 03/22/2019 Encounter Details Date Type Department Care Team (Late st Contact Info) Description 03/19/2019 Telephone [facility] - BILLING CLERK [address] [address] Aye Dao MD [address] [place] [address] Med Question Social History Tobacco Use [...] speak with the nurse concerning a prescription. Callback#[phone] * Telephone Encounter - Elisa Fisher APRN-CNP - 03/22/2019 8:51 AM CDT Last yeast cxl in was negative. Doubt needs ant fungal. If any sx developing ok to repeat x 1 dose. * Telephone Encounter - Marilin Alvarado RN - 03/19/2019 3:02 PM CDT Saw the urologist in [place] Gave the patient Rx Bactrim BID x [...] call back regarding her medication. Pt cb# [phone] documented in this encounter Plan of Treatment Upcoming Encounters Date Type Department Care Team (Late st Contact Info) Description 05/24/2025 2:00 PM CDT Office Visit [facility] - BILLING CLERK [address], [facility] 200 [place] [address] Aye Dao MD 1031 [facility] 400 [place] [address] documented as of this encounter Visit Diagnoses Not on filedocumented in this encounter Care Teams Rivet Tester Relationship Specialty Start Date End Date Casa Encarnacion MD PCP - General 12/12/15 documented as of this encounter
--- OUTSIDE RECORDS SUMMARY | 2024-09-08 21:08 | XMS_ITS | Encounter Summary ---
Author Organization [facility] Health Address [address] [facility] [place] [address] Care Team Providers Care Color Paste Mixing Supervisor Name Role Phone Casa Encarnacion MD Primary Care Provider [phone] Reason for Visit * Reason Onset Date Comments UTI 05/12/2019 Encounter Details Date Type Department Care Team (Late st Contact Info) Description 05/12/2019 Telephone [facility] 1031 [place], [place] [id number] Aye Dao MD [address] [address] UTI Social History Tobacco Use [...] She uses the [facility] at the [facility] order placed She will contact the office Friday if she has not heard from our office with results * Telephone Encounter - Katty Murphy - 05/12/2019 12:41 PM CDT Pt called stating that she thinks she has a UTI and would like to leave a urine sample at a [facility]. Callback#[phone] documented in this encounter Plan of Treatment Upcoming Encounters Date Type Department Care Team (Late st Contact Info) Description 05/24/2025 2:00 PM CDT Office Visit [facility] - CHECK WRITING MACHINE OPERATOR [address], [facility] 200 [place] [address] Aye Dao MD [address] [facility] 400 [place] [address] documented as of this encounter Procedures Procedure Name Priority Date/Time Associated Diagnosis Comments CULTURE URINE Routine 05/12/2019 2:10 PM CDT Acute cystitis without hematuria documented in this encounter Results * (ABNORMAL) CULTURE URINE (05/12/2019 2:10 PM CDT) Culture (A) [facility] Comment: ??CULTURE, URINE, ROUTINE ?MICRO NUMBER: ?[id number] ??TEST STATUS: ? FINAL ??SPECIMEN SOURCE: ?? [...] cefuroxime, cephalexin ?and loracarbef. Test Performed at: [facility] ??[id number] ZORAIDA TYLER MD Urine URINE SPECIMEN OBTAINED BY CLEAN CATCH PROCEDURE / Unknown 05/12/2019 2:10 PM CDT 05/12/2019 2:10 PM CDT Aye Dao MD LAB - MICROBIOLOGY ORDERABLES Performing Organization Address City/State/[facility] Co de Phone Number [address] [address] documented in this encounter Visit Diagnoses Diagnosis Acute cystitis without hematuria- Primary Acute cystitis documented in this encounter Care Teams Color Paste Mixing Supervisor Relationship Specialty Start Date End Date Casa Encarnacion MD PCP - General 12/12/15 documented as of this encounter
--- OUTSIDE RECORDS SUMMARY | 2024-09-08 21:08 | XMS_ITS | Encounter Summary ---
Author Organization [facility] Health Address [address] [place] [address] Care Team Providers Care Zinc Plate Grainer Name Role Phone Casa Encarnacion MD Primary Care Provider [phone] Reason for Visit * Reason Onset Date Comments Pain Pelvic 10/16/2018 Encounter Details Date Type Department Care Team (Late st Contact Info) Description 10/16/2018 Telephone [facility] [address] [place] [address] Aye Dao MD [address] [address] Pain Pelvic Social History Tobacco [...] Iris Lundy LPN - 10/16/2018 2:12 PM YARN MAN Attempt to call patient. - left a message I will try back again later. I spoke with the patient - she did go to [facility] . Leave a sample. Would like us [...] results. She is agreeable and very thankful MAN * Telephone Encounter - Celena Joel - 10/16/2018 1:42 PM CST Pt called in complaining of pelvic pain and would like to speak to Dr Zhao's nurse. Pt callback# [phone] MAN documented in this encounter Plan of Treatment Upcoming Encounters Date Type Department Care Team (Late st Contact Info) Description 05/24/2025 2:00 PM CDT Office Visit [facility] - PATTERN MOLDER [address], [facility] 200 [place] [address] Aye Dao MD [address] [place] [facility] 400 [place] [address] documented as of this encounter Visit Diagnoses Not on filedocumented in this encounter Care Teams Zinc Plate Grainer Relationship Specialty Start Date End Date Casa Encarnacion MD PCP - General 12/12/15 documented as of this encounter
--- OUTSIDE RECORDS SUMMARY | 2024-09-08 21:08 | XMS_ITS | Encounter Summary ---
Author Organization [facility] Health Address [address] [facility] [place] [address] Care Team Providers Care Hand Singer Name Role Phone Casa Encarnacion MD Primary Care Provider [phone] Reason for Visit * Reason Onset Date Comments Question 01/06/2019 Encounter Details Date Type Department Care Team (Late st Contact Info) Description 01/06/2019 Telephone [facility] 1031 [place] [address] Aye Dao MD [address] [address] Question Social History Tobacco Use [...] was any medication ordered for her UTI. Callback#[phone] documented in this encounter Plan of Treatment Upcoming Encounters Date Type Department Care Team (Late st Contact Info) Description 05/24/2025 2:00 PM CDT Office Visit [facility] - FACILITIES DIRECTOR [address], [facility] 200 [place] [address] Aye Dao MD [address] [facility] 400 [place] [address] documented as of this encounter Visit Diagnoses Not on filedocumented in this encounter Care Teams Hand Singer Relationship Specialty Start Date End Date Casa Encarnacion MD PCP - General 12/12/15 documented as of this encounter
--- OUTSIDE RECORDS SUMMARY | 2024-09-08 21:08 | XMS_ITS | Encounter Summary ---
Author Organization [facility] Health Address [address] [facility] [place] [address] Care Team Providers Care Information Systems Professor Name Role Phone Casa Encarnacion MD Primary Care Provider [phone] Reason for Visit * Reason Onset Date Comments Pain 05/13/2019 Vulvar Pain 05/13/2019 Encounter Details Date Type Department Care Team (Late st Contact Info) Description 05/13/2019 Telephone [facility] [address] [facility] [address] [place], [place] [id number] Aye Dao MD [address] [facility] [address] [place] [address] Pain; Vulvar Pain Social History [...] Pain is continous pain. Call back # [phone] documented in this encounter Plan of Treatment Upcoming Encounters Date Type Department Care Team (Late st Contact Info) Description 05/24/2025 2:00 PM CDT Office Visit [facility] - SEARCH ENGINE OPTIMIZATION CONSULTANT [address], [facility] 200 [place] [address] Aye Dao MD 1031 [facility] 400 [place] [address] documented as of this encounter Visit Diagnoses Not on filedocumented in this encounter Care Teams Information Systems Professor Relationship Specialty Start Date End Date Casa Encarnacion MD PCP - General 12/12/15 documented as of this encounter
--- OUTSIDE RECORDS SUMMARY | 2024-09-08 21:08 | XMS_ITS | Encounter Summary ---
Author Organization [facility] Address [address] [facility] [place] [address] Care Team Providers Care Beam Dyer Recessed Vat Name Role Phone Casa Encarnacion MD Primary Care Provider [phone] Encounter Details Date Type Department Care Team (Late Contact Info) Description 05/12/2019 Orders Only [facility] Gy[facility]cology [facility] Women[facility] Health 1031 [place] [address] Aye Dao MD [address] [address] Social History Tobacco Use Types [...] [facility] - ADVISOR CONSULTANT [address], [facility] 200 [place] [address] Aye Dao MD 1031 [facility] 400 [place] [address] (work) documented as of this [...] of this test have been determined by [facility] This test not be used for diagnosis without confirmation by other medically established means. Test Performed at: [facility] [address] [place] [address] ??[id number] Tony PATTERSON 05/12/2019 2:12 PM CDT 05/12/2019 2:12 PM CDT Aye Dao MD LAB - MICROBIOLOGY ORDERABLES [facility] [address] [place] [address] * (ABNORMAL) CULTURE YEAST WITH DIRECT FLUORESCENT MODESTA (05/12/2019 2:12 PM CDT) Smear (A) [facility] Comment: ??CULTURE, YEAST, W/DIRECT FLUORESCENT MODESTA ?MICRO NUMBER: ?[id number] ??TEST STATUS: ? FINAL ??SPECIMEN SOURCE: ?? WOUND (SITE NOT SPECIFIED) ??SPECIMEN QUALITY: ??ADEQUATE ??SMEAR: ? No fungal elements seen. ??RESULT: ?Bambi albicans Test Performed at: [facility] ??[id number] ZORAIDA TYLER MD 05/12/2019 2:12 PM CDT 05/12/2019 2:12 PM CDT Aye Dao MD LAB - MICROBIOLOGY ORDERABLES Performing Organization Address City/State/[facility] Co de Phone Number [address] [address] documented in this encounter Visit Diagnoses Not on filedocumented in this encounter Care Teams Beam Dyer Recessed Vat Relationship Specialty Start Date End Date Casa Encarnacion MD PCP - General 12/12/15 documented as of this encounter
--- OUTSIDE RECORDS SUMMARY | 2024-09-08 21:08 | XMS_ITS | Encounter Summary ---
Author Organization [facility] Health Address [address] [place] [address] Care Team Providers Care Security Infrastructure Engineer Name Role Phone Casa Encarnacion MD Primary Care Provider [phone] Reason for Visit * Reason Comments Refill Request Encounter Details Date Type Department Care Team (Late st Contact Info) Description 03/13/2020 Refill [facility] 10[address] [facility] [address] [place] [address] Aye Dao MD 10[address] [facility] [address] [place] [address] Refill Request Social History Tobacco [...] Visit [facility] - WASHER BLANKET [address], [facility] 200 [place] [address] Aye Dao MD [address] [facility] 400 [place] [address] documented as of this encounter Visit Diagnoses Diagnosis Vulvodynia documented in this encounter Care Teams Security Infrastructure Engineer Relationship Specialty Start Date End Date Casa Encarnacion MD PCP - General 12/12/15 documented as of this encounter
--- OUTSIDE RECORDS SUMMARY | 2024-09-08 21:08 | XMS_ITS | Encounter Summary ---
Author Organization [facility] Health Address [address] [place] [address] Care Team Providers Care Bag Press Operator Name Role Phone Casa Encarnacion MD Primary Care Provider [phone] Reason for Visit * Reason Onset Date Comments Medication Clarification 01/26/2019 Encounter Details Date Type Department Care Team (Late st Contact Info) Description 01/26/2019 Telephone [facility] [address] [place] [address] Aye Dao MD [address] [address] Medication Clarification Social History Tobacco [...] like a call pertaining to her medication. Callback#[phone] documented in this encounter Plan of Treatment Upcoming Encounters Date Type Department Care Team (Late st Contact Info) Description 05/24/2025 2:00 PM CDT Office Visit [facility] - LAW TUTOR [address], [facility] 200 [place] [address] Aye Dao MD [address] [facility] 400 [place] [address] documented as of this encounter Visit Diagnoses Not on filedocumented in this encounter Care Teams Bag Press Operator Relationship Specialty Start Date End Date Casa Encarnacion MD PCP - General 12/12/15 documented as of this encounter
--- OUTSIDE RECORDS SUMMARY | 2024-09-08 21:08 | XMS_ITS | Encounter Summary ---
Author Organization [facility] Health Address [address] [facility] [place] [address] Care Team Providers Care Cutter And Edge Trimmer Name Role Phone Casa Encarnacion MD Primary Care Provider [phone] Reason for Visit * Reason Comments Refill Request Encounter Details Date Type Department Care Team (Late Contact Info) Description 09/02/2018 Refill [facility]s Gynecology [facility] Women's Health [address] [place] [address] Aye Dao MD [address] [address] Refill Request Social History Tobacco [...] Description 05/24/2025 2:00 PM CDT Office Visit [facility] - PBX OPERATOR [address], [facility] [address] [place] [address] Aye Dao MD [address] [facility] 400 [place] [address] documented as of this encounter Visit Diagnoses Not on filedocumented in this encounter Care Teams Cutter And Edge Trimmer Relationship Specialty Start Date End Date Casa Encarnacion MD PCP - General 12/12/15 documented as of this encounter
--- OUTSIDE RECORDS SUMMARY | 2024-09-08 21:08 | XMS_ITS | Encounter Summary ---
Author Organization [facility] Address [address] [facility] [place] [address] Care Team Providers Care Packing Machine Feeder Name Role Phone Casa Encarnacion MD Primary Care Provider [phone] Encounter Details Date Type Department Care Team (Late Contact Info) Description 07/08/2019 Orders Only [facility] Gy[facility]cology [facility] Women[facility] [address] [facility] [facility] 200 [place], [place] [id number] Aye Dao MD [address] [address] Vulvodynia Social History Tobacco Use [...] Description 05/24/2025 2:00 PM CDT Office Visit [facility] - COMMERCIAL LOAN ADMINISTRATOR [address], [facility] 200 [place] [address] Aye Dao MD [address] [facility] 400 [place] [address] documented as of this encounter Visit Diagnoses Diagnosis Vulvodynia documented in this encounter Care Teams Packing Machine Feeder Relationship Specialty Start Date End Date Casa Encarnacion MD PCP - General 12/12/15 documented as of this encounter
--- OUTSIDE RECORDS SUMMARY | 2024-09-08 21:08 | XMS_ITS | Encounter Summary ---
Author Organization [facility] Health Address [address] [facility] [place] [address] Care Team Providers Care Hedge Trimmer Name Role Phone Casa Encarnacion MD Primary Care Provider [phone] Reason for Visit * Reason Onset Date Comments Vaginal Problem 09/18/2018 Encounter Details Date Type Department Care Team (Late st Contact Info) Description 09/18/2018 Telephone [facility] [address] [place] [address] Aye Dao MD [address] [address] Vaginal Problem Social History Tobacco [...] Instructions* Beth Rossi - 09/18/2018 12:06 PM GILL BOX OPERATOR The Kashiflucan didn't work and she is having pressure. She would like meds called into [facility] [phone]. BOX OPERATOR documented in this encounter Miscellaneous Notes * Telephone Encounter - [place], Iris R, FUNNEL COATER - 09/18/2018 12:47 PM GILL BOX OPERATOR Patient finished her diflucan - the itching [...] will get this message to Dr. Zhao. BOX OPERATOR documented in this encounter Plan of Treatment Upcoming Encounters Date Type Department Care Team (Late st Contact Info) Description 05/24/2025 2:00 PM CDT Office Visit [facility] - BOAT FINISHER [address] [place] [address], [address] [place] [address] Aye Dao MD 1031 [facility] 400 [place] [address] documented as of this encounter Visit Diagnoses Not on filedocumented in this encounter Care Teams Hedge Trimmer Relationship Specialty Start Date End Date Casa Encarnacion MD PCP - General 12/12/15 documented as of this encounter
--- OUTSIDE RECORDS SUMMARY | 2024-09-08 21:08 | XMS_ITS | Encounter Summary ---
Author Organization [facility] Health Address [address] [facility] [place] [address] Care Team Providers Care Psychiatric Technician Assistant Name Role Phone Casa Encarnacion MD Primary Care Provider [phone] Reason for Visit * Reason Onset Date Comments UTI 05/14/2019 Encounter Details Date Type Department Care Team (Late st Contact Info) Description 05/14/2019 Telephone [facility] [address] [place] [address] Aye Dao MD 10[address] [facility] [address] [place] [address] UTI Social History Tobacco Use [...] up with the urologist she sees in [place]. Letter sent to her urologist with a timeline of her infections and treatment. documented in this encounter Plan of Treatment Upcoming Encounters Date Type Department Care Team (Late st Contact Info) Description 05/24/2025 2:00 PM CDT Office Visit [facility] - COLLAR BASTER JUMPBASTING [address], [facility] 200 [place] [address] Aye Dao MD [address] [place] [address] [place] [address] documented as of this encounter Visit Diagnoses Diagnosis Acute cystitis without hematuria- Primary Acute cystitis documented in this encounter Care Teams Psychiatric Technician Assistant Relationship Specialty Start Date End Date Casa Encarnacion MD PCP - General 12/12/15 documented as of this encounter
--- OUTSIDE RECORDS SUMMARY | 2024-09-08 21:08 | XMS_ITS | Encounter Summary ---
Author Organization [facility] Address [address] [facility] [place] [address] Care Team Providers Care Cook [employer] Name Role Phone Casa Encarnacion MD Primary Care Provider [phone] Reason for Visit * Reason Onset Date Comments Med Question 03/25/2019 Encounter Details Date Type Department Care Team (Late st Contact Info) Description 03/25/2019 Telephone [facility] [address] [place] [address] Aye Dao MD [address] [address] Med Question Social History Tobacco [...] PM CDT Diflucan 150 #2 sent to [facility] Patient notified She is agreeable And [...] that she had questions. Call back # [phone] documented in this encounter Plan of Treatment Upcoming Encounters Date Type Department Care Team (Late st Contact Info) Description 05/24/2025 2:00 PM CDT Office Visit [facility] - SOLAR INSTALLATION MANAGER [address], [facility] 200 [place] [address] Aye Dao MD [address] [place] [address] documented as of this encounter Visit Diagnoses Not on filedocumented in this encounter Care Teams Cook At [employer] Relationship Specialty Start Date End Date Casa Encarnacion MD PCP - General 12/12/15 documented as of this encounter
--- OUTSIDE RECORDS SUMMARY | 2024-09-08 21:08 | XMS_ITS | Encounter Summary ---
Author Organization [facility] Health Address [address] [place] [address] Care Team Providers Care Mercury Cell Cleaner Name Role Phone Casa Encarnacion MD Primary Care Provider [phone] Reason for Visit * Reason Onset Date Comments Results 2019 Encounter Details Date Type Department Care Team (Late st Contact Info) Description 2019 Telephone [facility] [address] [place] [address] Aye Dao MD [address] [address] Results Social History Tobacco Use [...] results were when she left her urine. Callback#[phone] documented in this encounter Plan of Treatment Upcoming Encounters Date Type Department Care Team (Late st Contact Info) Description 05/24/2025 2:00 PM CDT Office Visit [facility]ician Group - LAUNDRY MANAGER [address], [facility] [address] [place] [address] Aye Dao MD 1031 [facility] [address] [place] [address] documented as of this encounter Visit Diagnoses Not on filedocumented in this encounter Care Teams Mercury Cell Cleaner Relationship Specialty Start Date End Date Casa Encarnacion MD PCP - General 12/12/15 documented as of this encounter
--- OUTSIDE RECORDS SUMMARY | 2024-09-08 21:08 | XMS_ITS | Encounter Summary ---
Author Organization [facility] Health Address [address] [facility] [place] [address] Care Team Providers Care Engagement Executive Name Role Phone Casa Encarnacion MD Primary Care Provider [phone] Reason for Visit * Reason Onset Date Comments Pain Vaginal 10/26/2018 Encounter Details Date Type Department Care Team (Late st Contact Info) Description 10/26/2018 Telephone [facility] [address] [place] [address] Aye Dao MD [address] [address] Pain Vaginal Social History Tobacco [...] Marilin Alvarado RN - 10/26/2018 11:48 AM ENGINEERING DESIGNER Return call to patient Took the diflucan [...] Willcheck urine through [facility] (order placed) NEERING DESIGNER * Telephone Encounter - Celena Joel - 10/26/2018 10:09 AM CST Pt called in complaining of vaginal burning and would like to speak to the nurse. Pt callback#[phone] NEERING DESIGNER documented in this encounter Plan of Treatment Upcoming Encounters Date Type Department Care Team (Late st Contact Info) Description 05/24/2025 2:00 PM CDT Office Visit [facility] Physician Group - CLOTH PRINTING INSPECTOR [address] [place] [address], [facility] [address] [place] [address] Aye Dao MD 1031 [facility] [address] [place] [address] Scheduled Orders Name Type Priority Associated Diagnoses Orde r Schedule CULTURE URINE Microbiology Routine Acute cystitis without hematuria Ordered: 10/26/2018 documented as of this encounter Visit Diagnoses Diagnosis Acute cystitis without hematuria- Primary Acute cystitis documented in this encounter Care Teams Engagement Executive Relationship Specialty Start Date End Date Casa Encarnacion MD PCP - General 12/12/15 documented as of this encounter
--- OUTSIDE RECORDS SUMMARY | 2024-09-08 21:08 | XMS_ITS | Encounter Summary ---
Author Organization [facility] Health Address [address] [facility] [place] [address] Care Team Providers Care Conservation Science Officer Name Role Phone Casa Encarnacion MD Primary Care Provider [phone] Reason for Visit * Reason Comments Refill Request Encounter Details Date Type Department Care Team (Late st Contact Info) Description 06/21/2019 Refill [facility] [address] [facility] [address] [place] [address] Aye Dao MD [address] [facility] [address] [place] [address] Refill Request Social History Tobacco [...] mg a day) Rx refill sent through [employer] after pharmacy fax'd request documented in this encounter Plan of Treatment Upcoming Encounters Date Type Department Care Team (Late st Contact Info) Description 05/24/2025 2:00 PM CDT Office Visit [facility] Group - RADIOLOGY INTERVENTIONAL PHYSICIAN [address] [place] [address], [facility] [address] [place] [address] Aye Dao MD 1031 [facility] [address] [place] [address] documented as of this encounter Visit Diagnoses Diagnosis Vulvodynia documented in this encounter Care Teams Conservation Science Officer Relationship Specialty Start Date End Date Casa Encarnacion MD PCP - General 12/12/15 documented as of this encounter
--- OUTSIDE RECORDS SUMMARY | 2024-09-08 21:08 | XMS_ITS | Encounter Summary ---
Author Organization [facility] Health Address [address] [facility] [place] [address] Care Team Providers Care Hand Flesher Name Role Phone Casa Encarnacion MD Primary Care Provider [phone] Reason for Visit * Reason Comments Establish Care vulvar flare up Encounter Details Date Type Department Care Team (Late st Contact Info) Description 10/13/2018 10:30 AM ROD GREASER Office Visit [facility] [address] [facility] [address] [place], [place] [id number] Aye Dao MD [address] [facility] [address] [place] [address] Vulvodynia (Primary Dx) Social History [...] Comments Blood Pressure 114/76 10/13/2018 10:40 AM ROD GREASER Pulse - - Temperature - - Respiratory Rate - - Oxygen Saturation - - Inhaled Oxygen Concentration - - Weight 61.7 kg (136 lb) 10/13/2018 10:40 AM ROD GREASER Height 168.9 cm (5' 6.5 ) 10/13/2018 10:40 AM CS T Body Mass Index 21.62 10/13/2018 10:40 AM ROD GREASER documented in this encounter Patient Instructions * Patient Instructions* Aye Zhao MD - 10/13/2018 10:53 AM ROD GREASER Take 300 mg of gabapentin at breakfast and lunch and at bedtime take 600 mg (two capsules) If you get a bad flare let me know and we will get you right in. GREASER documented in this encounter Progress Notes * [...] All questions were answered to her satisfaction. GREASER documented in this encounter Plan of Treatment Upcoming Encounters Date Type Department Care Team (Late st Contact Info) Description 05/24/2025 2:00 PM CDT Office Visit [facility] - BIZTALK CONSULTANT [address], [facility] [address] [place] [address] Aye Dao MD [address] [facility] [address] [place] [address] documented as of this encounter Visit Diagnoses Diagnosis Vulvodynia- Primary documented in this encounter Care Teams Hand Flesher Relationship Specialty Start Date End Date Casa Encarnacion MD PCP - General 12/12/15 documented as of this encounter
--- OUTSIDE RECORDS SUMMARY | 2024-09-08 21:08 | XMS_ITS | Encounter Summary ---
Author Organization [facility] Address [address] [facility] [place] [address] Care Team Providers Care Site Foreman Name Role Phone Casa Encarnacion MD Primary Care Provider [phone] Reason for Visit * Reason Onset Date Comments Referral 01/21/2019 Record Request 01/21/2019 Encounter Details Date Type Department Care Team (Late st Contact Info) Description 01/21/2019 Telephone [facility] [address] [place] [address] Aye Dao MD [address] [address] Referral; Record Request Social History [...] months) Plans to see Dr Marimar Alba [facility] Aware we will get her records sent as requested Also, she would like order for [facility] to get test of cure Feeling good overall but wants to know UTI cleared Currently on diflucan per patient Order placed in [facility] (and paper fax'd to [facility] given the unreliable interface) Confirmed Dr Alba fax # Urine culture results from 03/27/17 - 01/04/19 sent as well as office note 10/28/2018 * Telephone Encounter - Elisa Anne - 01/21/2019 10:58 AM CDT Pt states Dr Leonard wanted her to see a urologist. She has decided on Alex Hairston MD in [place]. The nurses at his office are asking for records to be sent. Pt call back # [phone] Alex Hairston MD documented in this encounter Plan of Treatment Upcoming Encounters Date Type Department Care Team (Late st Contact Info) Description 05/24/2025 2:00 PM CDT Office Visit [facility]ician Group - BOARD WORKER [address], [facility] [address] [place] [address] Aye Dao MD [address] [facility] [address] [place] [address] documented as of this encounter Procedures Procedure Name Priority Date/Time Associated Diagnosis Comments CULTURE URINE Routine 01/22/2019 9:19 AM CDT Acute cystitis without hematuria documented in this encounter Results * CULTURE URINE (01/22/2019 9:19 AM CDT) Culture [facility] Comment: ??CULTURE, URINE, ROUTINE ?MICRO NUMBER: ?[id number] ??TEST STATUS: ? FINAL ??SPECIMEN SOURCE: ?? URINE ??SPECIMEN QUALITY: ??ADEQUATE ??RESULT: ?No Growth Test Performed at: [facility] [address] ??[id number] ZORAIDA TYLER MD Urine URINE SPECIMEN OBTAINED BY CLEAN CATCH PROCEDURE / Unknown 01/22/2019 9:19 AM CDT 01/22/2019 9:20 AM CDT Aye Dao MD LAB - MICROBIOLOGY ORDERABLES [address] [address] documented in this encounter Visit Diagnoses Diagnosis Acute cystitis without hematuria- Primary Acute cystitis documented in this encounter Care Teams Site Foreman Relationship Specialty Start Date End Date Casa Encarnacion MD PCP - General 12/12/15 documented as of this encounter
--- OUTSIDE RECORDS SUMMARY | 2024-09-08 21:08 | XMS_ITS | Encounter Summary ---
Author Organization [facility] Health Address [address] [facility] [place] [address] Care Team Providers Care Air Intercept Controller Supervisor Name Role Phone Casa Encarnacion MD Primary Care Provider [phone] Reason for Visit * Reason Comments Refill Request Encounter Details Date Type Department Care Team (Late Contact Info) Description 10/05/2018 Refill [facility] [address] [place] [address] Aye Dao MD [address] [facility] [address] [place] [address] Refill Request Social History Tobacco [...] Visit [facility] - LLAMA FARMER [address], [place] [address] [address] Aye Dao MD [address] [facility] [address] [place] [address] documented as of this encounter Visit Diagnoses Not on filedocumented in this encounter Care Teams Air Intercept Controller Supervisor Relationship Specialty Start Date End Date Casa Encarnacion MD PCP - General 12/12/15 documented as of this encounter
--- OUTSIDE RECORDS SUMMARY | 2024-09-08 21:08 | XMS_ITS | Encounter Summary ---
Author Organization [facility] Health Address [address] [facility] [place] [address] Care Team Providers Care Formula Room Worker Name Role Phone Casa Encarnacion MD Primary Care Provider [phone] Reason for Visit * Reason Onset Date Comments UTI 10/19/2018 Encounter Details Date Type Department Care Team (Late st Contact Info) Description 10/19/2018 Telephone [facility] [address] [place], [place] [id number] Aye Dao MD [address] [address] UTI Social History Tobacco Use [...] me know if this does not help. TECHNICIAN documented in this encounter Plan of Treatment Upcoming Encounters Date Type Department Care Team (Late st Contact Info) Description 05/24/2025 2:00 PM CDT Office Visit [facility] Physician Group - TECHNOLOGY INTERN [address], [facility] [address] [place] [address] Aye Dao MD 1031 [facility] [address] [place] [address] documented as of this encounter Visit Diagnoses Diagnosis Acute cystitis without hematuria- Primary Acute cystitis documented in this encounter Care Teams Formula Room Worker Relationship Specialty Start Date End Date Casa Encarnacion MD PCP - General 12/12/15 documented as of this encounter
--- OUTSIDE RECORDS SUMMARY | 2024-09-08 21:08 | XMS_ITS | Encounter Summary ---
Author Organization [facility] Health Address [address] [facility] [place] [address] Care Team Providers Care Enrollment Clerk Name Role Phone Casa Encarnacion MD Primary Care Provider Reason for Visit * Reason Comments Establish Care vulvodynia Encounter Details Date Type Department Care Team (Late st Contact Info) Description 04/14/2019 10:10 AM CDT Office Visit [facility] Obstetrics Gynecology and Women's Health [address] [facility] [address] [place] [address] Aye Dao MD [address] [facility] [address] [place] [address] Vulvodynia (Primary Dx) Social History [...] Description 05/24/2025 2:00 PM CDT Office Visit [facility] Physician Group - SERVICE STATION OPERATOR [address], [place] [address] [place] [address] Aye Dao MD [address] [place] [address] [place] [address] Scheduled Orders Name Type Priority Associated Diagnoses Orde r Schedule CULTURE YEAST WITH DIRECT FLUORESCENT MODESTA Microbiology Routine Vulvodynia Expected: 07/08/2019, Expires: 05/15/2020 documented as of this encounter Visit Diagnoses Diagnosis Vulvodynia- Primary documented in this encounter Care Teams Enrollment Clerk Relationship Specialty Start Date End Date Casa Encarnacion MD PCP - General 12/12/15 documented as of this encounter
--- OUTSIDE RECORDS SUMMARY | 2024-09-08 21:08 | XMS_ITS | Encounter Summary ---
Author Organization [facility] Health Address [address] [facility] [place] [address] Care Team Providers Care Produce Runner Name Role Phone Casa Encarnacion MD Primary Care Provider [phone] Reason for Visit * Reason Onset Date Comments Patient Requested Call 07/05/2019 Encounter Details Date Type Department Care Team (Late st Contact Info) Description 07/03/2019 Refill [facility] [address] [place], [place] [phone] Aye Dao MD 1031 [facility] [address] [place] [address] Patient Requested Call Social History [...] in requesting a calbac from the provider. Calback#[phone] documented in this encounter Plan of Treatment Upcoming Encounters Date Type Department Care Team (Late st Contact Info) Description 05/24/2025 2:00 PM CDT Office Visit [facility] - PROPOSAL REP [address] [facility] [address] [place] [address] Aye Dao MD [address] [facility] [address] [place] [address] documented as of this encounter Visit Diagnoses Diagnosis Yeast infection of the vagina Candidiasis of vulva and vagina documented in this encounter Care Teams Produce Runner Relationship Specialty Start Date End Date Casa Encarnacion MD PCP - General 12/12/15 documented as of this encounter
--- OUTSIDE RECORDS SUMMARY | 2024-09-08 21:08 | XMS_ITS | Encounter Summary ---
Author Organization [facility] Health Address [address] [facility] [place] [address] Care Team Providers Care Retina Subspecialist Name Role Phone Casa Encarnacion MD Primary Care Provider [phone] Reason for Visit * Reason Onset Date Comments Side Effect 10/20/2018 Update 10/20/2018 ?? Encounter Details Date Type Department Care Team (Late st Contact Info) Description 10/20/2018 Telephone [facility] [address] [place] [address] Aye Dao MD 1031 [facility] [address] [place] [address] Side Effect; Update (??) Social [...] Marilin Alvarado RN - 10/21/2018 10:48 AM SUPERVISOR KEYMODULE ASSEMBLY Return call to patient Having trouble with [...] UTI Patient aware to call with needs RVISOR KEYMODULE ASSEMBLY * Telephone Encounter - Elisa Anne - 10/21/2018 9:05 AM CST Pt states she was to call back today if she had any problems. States nothing new or worse, she's just not any better. Call back # [phone] RVISOR KEYMODULE ASSEMBLY * Telephone Encounter - Rudi Finley Che, MD - 10/20/2018 4:04 PM CST It looks like she just started ampicillin yesterday. RVISOR KEYMODULE ASSEMBLY * Telephone Encounter - Marilin Alvarado RN - 10/20/2018 3:21 PM SUPERVISOR KEYMODULE ASSEMBLY Sores in her mouth, on her gum [...] ? 64 ?VANCOMYCIN ? S ? <=0.5 RVISOR KEYMODULE ASSEMBLY * Telephone Encounter - Celena Joel - 10/20/2018 12:26 PM CST Pt called in stating that she is having side effects from the ampicillin 500mg that Dr Zhao put her on. Pt callback# [phone] RVISOR KEYMODULE ASSEMBLY documented in this encounter Plan of Treatment Upcoming Encounters Date Type Department Care Team (Late st Contact Info) Description 05/24/2025 2:00 PM CDT Office Visit [facility] Physician Group - OIL AND GAS WELL TREATMENT OPERATOR [address] [facility] [address] [place] [address] Aye Dao MD 1031 [facility] [address] [place] [address] documented as of this encounter Visit Diagnoses Not on filedocumented in this encounter Care Teams Retina Subspecialist Relationship Specialty Start Date End Date Casa Encarnacion MD PCP - General 12/12/15 documented as of this encounter
--- OUTSIDE RECORDS SUMMARY | 2024-09-08 21:08 | XMS_ITS | Encounter Summary ---
Author Organization [facility] Health Address [address] [facility] [place] [address] Care Team Providers Care Thread Roller Name Role Phone Casa Encarnacino MD Primary Care Provider [phone] Reason for Visit * Reason Onset Date Comments Question 09/21/2018 Encounter Details Date Type Department Care Team (Late st Contact Info) Description 09/21/2018 Telephone [facility] [address] [place] [id number] Aye Dao MD [address] [address] Question Social History Tobacco Use [...] Marilin Alvarado RN - 09/21/2018 2:[address] TRAFFIC CONTROL TECHNICIAN Notified patient of Dr Leonard's reply that she will give one more round of Diflucan 200 , one every other day for 3 doses total. This will be the last Rx for this medication without a fungal culture being sent. Luanne agreeable Script sent Patient is scheduled to see Dr Leonard 11/17/18. WAY TRAFFIC CONTROL TECHNICIAN * Telephone Encounter - Marilin Alvarado RN - 09/21/2018 2:[address] TRAFFIC CONTROL TECHNICIAN Last couple of days , using sitz baths as feeling irritation there (vulvar) Some discharge, thicker white Using the Crisco daily Using gabapentin 300 mg TID Still having burning when up and moving around Things were better after finishing the 3 diflucan prescribed 09/02/18 But now irritation is back Aware we will discuss with Dr Leonard and be back in touch with patient: [phone] WAY TRAFFIC CONTROL TECHNICIAN * Telephone Encounter - Celena Joel - 09/21/2018 10:47 AM CST Pt called in stating that she would like to speak to Dr Leonard's nurse. When I asked what it was regarding, pt stated that she has questions about a medication and also she has personal questions. Pt callback# [phone] [address] TRAFFIC CONTROL TECHNICIAN documented in this encounter Plan of Treatment Upcoming Encounters Date Type Department Care Team (Late st Contact Info) Description 05/24/2025 2:00 PM CDT Office Visit [facility]ician Group - OUTER DIAMETER GRINDER [address], [facility] 200 [place] [address] Aye Dao MD [address] [place] [address] documented as of this encounter Visit Diagnoses Not on filedocumented in this encounter Care Teams Thread Roller Relationship Specialty Start Date End Date Casa Encarnacion MD PCP - General 12/12/15 documented as of this encounter
--- OUTSIDE RECORDS SUMMARY | 2024-09-08 21:08 | XMS_ITS | Encounter Summary ---
Author Organization [facility] Health Address [address] [facility] [place] [address] Care Team Providers Care Reinforcing Metal Worker Name Role Phone Casa Encarnacion MD Primary Care Provider [phone] Reason for Visit * Reason Onset Date Comments Vulvar Irritation 09/02/2018 Encounter Details Date Type Department Care Team (Late st Contact Info) Description 09/02/2018 Telephone [facility] [address] [place] [address] Aye Dao MD 1031 [facility] [address] [place] [address] Vulvar Irritation Social History Tobacco [...] Aye Zhao MD - 09/02/2018 10:55 AM RN REHAB Informed that script sent in for Diflucan 200 mg tablet, one by mouth every other day for three doses.. If still with symptoms after taking to let me know. REHAB * Telephone Encounter - Katty Murphy - 09/02/2018 10:49 AM CST Pt states that she is having problems with burning and would like a [facility]rip [facility]. Callback#[phone] REHAB documented in this encounter Plan of Treatment Upcoming Encounters Date Type Department Care Team (Late st Contact Info) Description 05/24/2025 2:00 PM CDT Office Visit [facility] - ELECTRIC TRACK SWITCH MAINTAINER [address] [place] [address], [facility] [address] [place] [address] Aye Dao MD 1031 [facility] [address] [place] [address] documented as of this encounter Visit Diagnoses Not on filedocumented in this encounter Care Teams Reinforcing Metal Worker Relationship Specialty Start Date End Date Casa Encarnacion MD PCP - General 12/12/15 documented as of this encounter
--- OUTSIDE RECORDS SUMMARY | 2024-09-08 21:08 | XMS_ITS | Encounter Summary ---
Author Organization [facility] Health Address [address] [place] [address] Care Team Providers Care Client Server Programmer Name Role Phone Casa Encarnacion MD Primary Care Provider [phone] Reason for Visit * Reason Comments Refill Request Encounter Details Date Type Department Care Team (Late st Contact Info) Description 12/31/2018 Refill [facility] [address] [place], [place] [phone] Aye Dao MD 1031 [facility] 400 [place] [address] Refill Request Social History Tobacco [...] Description 05/24/2025 2:00 PM CDT Office Visit [facility] Group - WELLNESS PROGRAM COORDINATOR [address] [place] [address], [facility] 200 [place] [address] Aye Dao MD 1031 [facility] [address] [place] [address] documented as of this encounter Visit Diagnoses Not on filedocumented in this encounter Care Teams Client Server Programmer Relationship Specialty Start Date End Date Casa Encarnacion MD PCP - General 12/12/15 documented as of this encounter
--- OUTSIDE RECORDS SUMMARY | 2024-09-08 21:08 | XMS_ITS | Encounter Summary ---
Author Organization [facility] Address [address] [facility] [place] [address] Care Team Providers Care Installation Supervisor Name Role Phone Casa Encarnacion MD Primary Care Provider [phone] Reason for Visit * Reason Comments Establish Care Encounter Details Date Type Department Care Team (Late st Contact Info) Description 10/28/2018 10:50 AM STUDENT SERVICES COORDINATOR Office Visit [facility] Obstetrics Gynecology and Women's Health [address] [place] [address] Aye Dao MD [address] [facility] [address] [place] [address] Bladder pain (Primary Dx) Social [...] Comments Blood Pressure 124/78 10/28/2018 11:00 AM STUDENT SERVICES COORDINATOR Pulse - - Temperature - - Respiratory Rate - - Oxygen Saturation - - Inhaled Oxygen Concentration - - Weight 61.5 kg (135 lb 9.6 oz) 10/28/2018 11:00 AM STUDENT SERVICES COORDINATOR Height 168.9 cm (5' 6.5 ) 10/28/2018 11:00 AM CS T Body Mass Index 21.56 10/28/2018 11:00 AM STUDENT SERVICES COORDINATOR documented in this encounter Progress Notes * [...] All questions were answered to her satisfaction. ENT SERVICES COORDINATOR documented in this encounter Plan of Treatment Upcoming Encounters Date Type Department Care Team (Late st Contact Info) Description 05/24/2025 2:00 PM CDT Office Visit [facility] - HANDBAG DESIGNER [address] [place] [address] Aye Dao MD [address] [place] [address] documented as of this encounter Procedures Procedure Name Priority Date/Time Associated Diagnosis Comments CULTURE URINE Routine 10/28/2018 11:01 AM STUDENT SERVICES COORDINATOR Bladder pain documented in this encounter Results * CULTURE URINE (10/28/2018 11:01 AM STUDENT SERVICES COORDINATOR) Culture QUEST Comment: ??CULTURE, URINE, ROUTINE ?MICRO NUMBER: ?[id number] ??TEST STATUS: ? FINAL ??SPECIMEN SOURCE: ?? URINE CLEAN ??SPECIMEN QUALITY: ??ADEQUATE ??RESULT: ?Single organism less than 10,000 CFU/mL isolated. ? These organisms, commonly found on external and ? internal genitalia, are considered colonizers. ? No further testing performed. Test Performed at: [facility] ??[id number] ZORAIDA TYLER MD Urine URINE SPECIMEN OBTAINED BY CLEAN CATCH PROCEDURE / Unknown 10/28/2018 11:01 AM STUDENT SERVICES COORDINATOR 10/29/2018 12:11 AM STUDENT SERVICES COORDINATOR Aye Dao MD LAB - MICROBIOLOGY ORDERABLES [address] [address] documented in this encounter Visit Diagnoses Diagnosis Bladder pain- Primary Other symptoms involving urinary system documented in this encounter Care Teams Installation Supervisor Relationship Specialty Start Date End Date Casa Encarnacion MD PCP - General 12/12/15 documented as of this encounter
--- OUTSIDE RECORDS SUMMARY | 2024-09-08 21:08 | XMS_ITS | Encounter Summary ---
Author Organization [facility] Health Address [address] [place] [address] Care Team Providers Care Boiler Helper Name Role Phone Casa Encarnacion MD Primary Care Provider [phone] Reason for Visit * Reason Onset Date Comments Request Lab Order 05/18/2019 Encounter Details Date Type Department Care Team (Late st Contact Info) Description 05/18/2019 Telephone [facility] [address] [place] [address] Aye Dao MD [address] [address] Request Lab Order Social History [...] days at least. She will [facility] next fri or . Orders placed and hand faxed. [facility] for [facility] put in patients snap shot. Patient is [...] 2:[address] PM CDT Office [facility] - WHEAT INSPECTOR [address], [facility] [address] [place] [address] Aye Dao MD [address] [place] [address] Scheduled Orders Name Type Priority Associated Diagnoses Orde r Schedule CULTURE URINE Microbiology Routine Acute cystitis without hematuria Ordered: 05/18/2019 documented as of this encounter Visit Diagnoses Diagnosis Acute cystitis without hematuria- Primary Acute cystitis Yeast infection of the vagina Candidiasis of vulva and vagina documented in this encounter Care Teams Boiler Helper Relationship Specialty Start Date End Date Casa Encarnacion MD PCP - General 12/12/15 documented as of this encounter
--- OUTSIDE RECORDS SUMMARY | 2024-09-08 21:09 | XMS_ITS | Encounter Summary ---
Author Organization [facility] Address [address] [place] [address]. [place] [address] [place] [address] Care Team Providers Care Electronic Pagination System Operator Name Role Phone Casa Encarnacion MD Primary Care Provider [phone] Reason for Visit * Reason Comments ECG (SCAN) Encounter Details Date Type Department Care Team ([facility] st Contact Info) Description 01/26/2020 Scan [facility] [address] [place] [address] Scanned, Documents ECG (SCAN) Social [...] Author Status No 01/26/2020 5:15 PM CDT nUique Mejia RN Active * Because of a [...] (01/26/2020) us Documents Scanned SCANNING Final Result [facility] documented in this encounter Visit Diagnoses Not on filedocumented in this encounter Care Teams Electronic Pagination System Operator Relationship Specialty Start Date End Date Casa Encarnacion MD [address] [place] [address] PCP - General INTERNAL MEDICINE 03/16/19 documented as of this encounter
--- OUTSIDE RECORDS SUMMARY | 2024-09-08 21:09 | XMS_ITS | Encounter Summary ---
Author Organization [facility] Address [address] [place] [address]. [place], [place] [address] [place] [address] Care Team Providers Care Gear Inspector Name Role Phone Unavailable Primary Care Provider Unavailabl e Encounter Details Date Type Department Care Team (Late st Contact Info) Description 09/29/2009 [facility] [address] [place] [address] , Ayleen Evangelista MD Social History Tobacco [...] Comments Blood Pressure 110/70 09/29/2009 1:20 PM RAISE DRILLER Pulse 60 09/29/2009 1:20 PM RAISE DRILLER Regul ar Temperature - - Respiratory Rate 16 09/29/2009 1:20 PM RAISE DRILLER Oxygen Saturation - - Inhaled Oxygen Concentration - - Weight 65.8 kg (145 lb) 09/29/2009 1:20 PM RAISE DRILLER Height 170.2 cm (5' 7 ) 09/29/2009 1:20 PM RAISE DRILLER Body Mass Index 22.71 09/29/2009 1:20 PM RAISE DRILLER documented in this encounter Plan of Treatment Not on file documented as of this encounter Visit Diagnoses Not on filedocumented in this encounter
--- OUTSIDE RECORDS SUMMARY | 2024-09-08 21:09 | XMS_ITS | Encounter Summary ---
Author Organization [facility] Address [address] [place] [address]. [place] [address] [place] [address] Care Team Providers Care Jukebox Checker Name Role Phone Unavailable Primary Care Provider Unavailabl e Encounter Details Date Type Department Care Team (Late st Contact Info) Description 02/11/2014 Abstract [facility] [address] [place] [address] Tyesha Salazar MD [address] [place] [address] Social History Tobacco Use Types [...]
--- OUTSIDE RECORDS SUMMARY | 2024-09-08 21:09 | XMS_ITS | Encounter Summary ---
Author Organization [facility] Address [address] [place] [address]. [place] [address] [place] [address] Care Team Providers Care Compressor Station Engineer Chief Name Role Phone Casa Encarnacion MD Primary Care Provider [phone] Encounter Details Date Type Department Care Team [...] on filedocumented in this encounter Care Teams Compressor Station Engineer Chief Relationship Specialty Start Date End Date Casa Encarnacion MD [address] [place] [address] PCP - General INTERNAL MEDICINE 03/16/19 documented as of this encounter
--- OUTSIDE RECORDS SUMMARY | 2024-09-08 21:09 | XMS_ITS | Encounter Summary ---
Author Organization [facility] Address [address] [place] [address]. [place], [place] [address] [place] [address] Care Team Providers Care Instructional Coach Name Role Phone Casa Encarnacion MD Primary Care Provider [phone] Reason for Referral * Imaging (Routine) - Closed Specialty Diagnoses / Procedures Referred By Contac t Referred To Contact RADIOLOGY Diagnoses Recurrent cystitis Procedures CT ABD+PEL WO CON Marimar Alba III, MD Phone: tel: fax: Referral ID Status Reason Start Date Expiration Date Visits Re quested Visits Authorized [id number] Closed 03/16/2019 04/16/2020 1 1 * Imaging (Routine) - Closed Specialty Diagnoses / Procedures Referred By Contac t Referred To Contact RADIOLOGY Diagnoses Recurrent cystitis Procedures US BLADDER Marimar Alba III, MD Phone: tel: fax: Referral ID Status Reason Start Date Expiration Date Visits Re quested Visits Authorized [id number] Closed 03/16/2019 04/16/2020 1 1 Reason for Visit * Imaging (Routine) - Closed Specialty Diagnoses / Procedures Referred By Contac t Referred To Contact RADIOLOGY Diagnoses Recurrent cystitis Procedures US BLADDER Marimar Alba III, MD Phone: tel: fax: Referral ID Status Reason Start Date Expiration Date Visits Re quested Visits Authorized [id number] Closed 03/16/2019 04/16/2020 1 1 Encounter Details Date Type Department Care Team (Latest Contact Info) Description 04/08/2019 9:11 AM CDT - 04/08/2019 11:59 PM CDT Hospital Encounter [facility] [address] [place] [address] [place] [address] [place] [address] Discharge Disposition: Home or Self Care [...] unspecified documented in this encounter Care Teams Instructional Coach Relationship Specialty Start Date End Date Casa Encarnacion MD [address] [place] [address] PCP - General INTERNAL MEDICINE 03/16/19 documented as of this encounter
--- OUTSIDE RECORDS SUMMARY | 2024-09-08 21:09 | XMS_ITS | Encounter Summary ---
Author Organization [facility] Address [facility] [place] [address] [place] [address] Care Team Providers Care Arm Maker Name Role Phone Casa Hadley MD Primary Care Provider [phone] Encounter Details Date Type Department Care Team (Latest Contact Info) Description 03/16/2019 11:35 AM CDT - 03/16/2019 11:59 PM [facility] Hospital Encounter [facility] [address] [facility] [facility] [address] [place] [address] [address] Discharge Disposition: Home or Self [...] URINE CLEAN CATCH 03/16/2019 12:23 PM CDT [facility] SPECIAL REQUESTS NO SPECIAL REQUEST 03/16/2019 12:23 PM CDT [facility] CULTURE RESULT >100,000 CFU/mL ENTEROCOCCUS FAECALIS 03/18/2019 8:36 PM CDT [facility] URINE SPECIMEN OBTAINED BY [...] MICROBIOLOGY - GENERAL O RDERABLES Final Result [facility] [address] [place] [address], [place] [phone] [facility] [address] [place] [address], * (ABNORMAL) URINALYSIS (03/16/2019 9:58 AM CDT) COLOR (U) YELLOW 03/16/2019 12:45 PM CDT [facility] TRANSPARENCY SLIGHTLY CLOUDY 03/16/2019 12:45 PM CDT [facility] SPECIFIC GRAVITY (U) 1.015 1.000 - 1.025 03/16/2019 12:45 PM CDT [facility] U PH 6.0 5.0 - 8.0 03/16/2019 12:45 PM CDT [facility] LEUKOCYTES (U) 2+(A) NEGATIVE 03/16/2019 12:45 PM CDT [facility] NITRITES NEGATIVE NEGATIVE 03/16/2019 12:45 PM CDT [facility] PROTEIN (U) TRACE(A) NEGATIVE 03/16/2019 12:45 PM CDT [facility] URINE GLUCOSE NEGATIVE NEGATIVE 03/16/2019 12:45 PM CDT [facility] KETONES MG/DL (U) NEGATIVE NEGATIVE 03/16/2019 12:45 PM CDT [facility] UROBILINOGEN 0.2 <1.0 EU/DL 03/16/2019 12:45 PM CDT [facility] BILIRUBIN (U) NEGATIVE NEGATIVE 03/16/2019 12:45 PM CDT [facility] BLOOD (U) NEGATIVE NEGATIVE 03/16/2019 12:45 PM CDT [facility] WBC/HPF 50-100(A) 0 - 5 /HPF 03/16/2019 12:45 PM CDT [facility] RBC/HPF 0-5 0 - 5 /HPF 03/16/2019 12:45 PM CDT [facility] EPI/HPF FEW /LPF 03/16/2019 12:45 PM CDT [facility] BACTERIA (U) 2+ /HPF 03/16/2019 12:45 PM CDT [facility] MUCUS PRESENT 03/16/2019 12:45 PM CDT [facility] OTHER CASTS (U) HYALINE /LPF 9 12:45 PM CDT [facility] Comment:5-10 URINE SPECIMEN OBTAINED BY CLEAN CATCH PROCEDURE / Unknown 03/16/2019 9:58 AM CDT us Mu Alba III, MD URINE ORDERABLES Final R esult Performing Organization Address [facility]/State/ZIP Co de Phone Number [facility] [address] [place] [address], * CYTOLOGY GENERIC (03/16/2019 12:00 AM CDT) CYTOLOGY OTHER [facility] ? Department of Laboratory Medicine ?[address] [facility] ?[place] [address] ? , extension [phone] ? Pathology Report ? Non-gynecologic Cytology Report Name: BRENDA WILSON ? Specimen #: [id number] Age: 6 1935 (Age: 84) ?Location: [facility] Sex: F ?Procedure Date: 03/16/2019 Hospital #: [id number] ?Date Received: 03/17/2019 Date Reported: 03/18/2019 Provider: MU LABA III ?CASA HADLEY Source: URINE, VOIDED Clinical History: Microscopic hematuria Gross Description: SPECIMEN RECEIVED: ? 50 cc's of yellow fluid ? SLIDES PREPARED: ?1 ThinPrep ?STAINS: ? Papanicolaou FINAL DIAGNOSIS: URINE, VOIDED: ? - SATISFACTORY FOR EVALUATION. ? - NEGATIVE FOR HIGH-GRADE UROTHELIAL CARCINOMA. Electronically Signed Out ? Gregory Penny M.D. [facility] 03/16/2019 03/17/2019 1:3 8 PM CDT Comment:URINE, VOIDED us Mu Alba III, MD PATHOLOGY/CYTOLOGY ORDER CHAPO Final Result Performing Organization Address City/State/[facility] Co de Phone Number [facility] [address] [place] [address], [phone] documented in this encounter Visit Diagnoses Diagnosis Microscopic hematuria documented in this encounter Care Teams Arm Maker Relationship Specialty Start Date End Date Casa Hadley MD [address] [place] [address] PCP - General INTERNAL MEDICINE 03/16/19 documented as of this encounter
--- OUTSIDE RECORDS SUMMARY | 2024-09-08 21:09 | XMS_ITS | Encounter Summary ---
Author Organization [facility] Address [address] [place] [address]. [place] [address] [place] [address] Care Team Providers Care Men'S And Boys' Clothing Salesperson Name Role Phone Casa Encarnacion MD Primary Care Provider [phone] Reason for Visit * Auth/Cert Specialty Diagnoses / Procedures Referred By Contac t Referred To Contact Diagnoses RECURRENT UTI'S Procedures CYSTOSCOPY Referral ID Status Reason Start Date Expiration Date Visits Re quested Visits Authorized [id number] 1 1 Encounter Details Date Type Department Care Team (Late st Contact Info) Description 07/06/2019 10:08 AM CDT - 07/06/2019 10:43 AM CDT [facility] [place] [facility] [address] [place] [address] [place] [address] [place] [address] [place] [phone] CYSTOSCOPY Surgery Details Date/Time Status Location OR [...] through Care Everywhere. * Cystoscopy Discharge Instructions (Malaysian) documented in this encounter Medications at Time [...] CYSTOSCOPY (N/A) Surgeon(s): Mu Alba III, MD Rug Scratcher: None Anesthesia: Local Pre-Op Diagnosis: RECURRENT UTI'S [...] I will get the culture back from [place]. She has asked me to give her [...] DESCRIPTION URINE, CYSTOSCOPIC 07/06/2019 10:05 AM CDT [facility] SPECIAL REQUESTS NO SPECIAL REQUEST 07/06/2019 10:05 AM CDT [facility] CULTURE RESULT >100,000 CFU/mL KLEBSIELLA PNEUMONIAE PNEUMONIAE 07/07/2019 8:53 PM CDT [facility] Urine specimen (specimen) URINE [...] MICROBIOLOGY - GENERAL O RDERABLES Final Result [facility] [address] [place] [address], [place] [phone] [facility] [place] [address], documented in this encounter Visit Diagnoses Not [...] MD) documented in this encounter Care Teams Men'S And Boys' Clothing Salesperson Relationship Specialty Start Date End Date Casa Encarnacion MD [address] [place] [address] PCP - General INTERNAL MEDICINE 03/16/19 documented as of this encounter
--- OUTSIDE RECORDS SUMMARY | 2024-09-08 21:09 | XMS_ITS | Encounter Summary ---
Author Organization [facility] Address [address] [place] [address]. [place] [address] [place] [address] Care Team Providers Care Bran Mixer Name Role Phone Unavailable Primary Care Provider Unavailabl e Encounter Details Date Type Department Care Team (Late st Contact Info) Description 06/19/2009 [facility] [address] [place] [phone] , Generic ConversionMD Social History Tobacco Use [...] Generic Conversion Md [facility] Final R [facility] MEDINFORMATIX TO EPIC CONVERSION * COMPREHENSIVE METABOLIC [...]
--- OUTSIDE RECORDS SUMMARY | 2024-09-08 21:09 | XMS_ITS | Encounter Summary ---
Author Organization [facility] Address [facility] [place] [address] [place] [address] Care Team Providers Care Telephone Order Dispatcher Name Role Phone Casa Encarnacion MD Primary Care Provider [phone] Encounter Details Date Type Department Care Team [...] on filedocumented in this encounter Care Teams Telephone Order Dispatcher Relationship Specialty Start Date End Date Casa Encarnacion MD [address] [place] [address] PCP - General INTERNAL MEDICINE 03/16/19 documented as of this encounter
--- OUTSIDE RECORDS SUMMARY | 2024-09-08 21:09 | XMS_ITS | Encounter Summary ---
Author Organization [facility] Address [address] [place] [address]. [place] [address] [place] [address] Care Team Providers Care Sales Representative Facility Services Name Role Phone Unavailable Primary Care Provider Unavailabl e Encounter Details Date Type Department Care Team (Late st Contact Info) Description 02/11/2014 Abstract [facility] [address] [place] [address] Tyesha Salazar MD [address] [place] [address] Social History Tobacco Use Types [...]
--- OUTSIDE RECORDS SUMMARY | 2024-09-08 21:09 | XMS_ITS | Encounter Summary ---
Author Organization [facility] Address [address] [place] [address]. [place] [address] [place] [address] Care Team Providers Care College Director Name Role Phone Unavailable Primary Care Provider Unavailabl e Encounter Details Date Type Department Care Team (Late st Contact Info) Description 06/15/2009 Abstract [facility] [address] [place] [address] , Ayleen Evangelista MD Social History Tobacco [...]
--- OUTSIDE RECORDS SUMMARY | 2024-09-08 21:09 | XMS_ITS | Encounter Summary ---
Author Organization [facility] Address [address] [facility] [facility] [place] [address] Care Team Providers Care Talend Developer Name Role Phone Casa Encarnacion MD Primary Care Provider [phone] Reason for Visit * Reason Comments Refill Request Encounter Details Date Type Department Care Team (Late st Contact Info) Description 03/05/2018 Refill [facility] [address] [place] [address] [phone] Aye Dao MD [address] [address] Refill Request Social History Tobacco [...] CDT Office Visit [facility] - ELECTRIC DISTRIBUTION ENGINEER [address], [facility] [address] [place] [address] Aye Dao MD [address] [facility] [address] [place] [address] documented as of this encounter Visit Diagnoses Not on filedocumented in this encounter Care Teams Talend Developer Relationship Specialty Start Date End Date Casa Encarnacion MD PCP - General 12/12/15 documented as of this encounter
--- OUTSIDE RECORDS SUMMARY | 2024-09-08 21:09 | XMS_ITS | Encounter Summary ---
Author Organization [facility] Address [address] [place] [address]. [place] [address] [place] [address] Care Team Providers Care Tree Feller Operator Name Role Phone Casa Encarnacion MD Primary Care Provider [phone] Reason for Visit * Auth/Cert Specialty Diagnoses / Procedures Referred By Rosalva t Referred To Contact Diagnoses H25.9 Procedures REMV CATARACT EXTRACAP,INSERT LENS EXTRACTION CATARACT right EYE WITH LENS IMPLANT Referral ID Status Reason Start Date Expiration Date Visits Re quested Visits Authorized [id number] 1 1 Encounter Details Date Type Department Care Team (Late st Contact Info) Description 12/24/2023 12:02 PM CDT - 12/24/2023 12:[address] [facility] [address] [place] [address] Catherine Newman MD [address] [place] [address] EXTRACTION CATARACT right EYE WITH LENS IMPLANT [...] during recuperation were discussed with the patient/family/personal loss prevention representative. Reasonable alternatives to the patient's proposed procedure/surgery including benefits, risks, and side effects related to the alternatives and the risks related to not receiving the proposed care were also discussed with the patient/family/personal loss prevention representative. Questions were answered and the patient/family/personal loss prevention representative verbalized understanding and desires to proceed. Source Note - [facility] - 12/24/2023 12:00 AM CDT documented in this encounter OR Notes * Brief Op Note - Catherine Newman MD - 12/24/2023 12:19 PM CDT Patient: Luanne Gotti 1935 [id number] Preoperative Diagnosis: Visually significant cataract Postoperative Diagnosis: Visually significant cataract Procedure: Cataract Extraction with Intraocular Lens Placement, RIGHT Eye Surgeon: Catherine Newman MD Organizational Effectiveness Consultant: none Anesthesia: Monitor Anesthesia Care Implant: Implant Name Type Inv. Item Serial No. Discharge Specialist Lot No. [id number] No. Used Action TECNIS 1-PIECE IOL [id number] [employer] [id number] Right 1 Implanted Specimen: none Estimated Blood [...] RN) documented in this encounter Care Teams Tree Feller Operator Relationship Specialty Start Date End Date Casa Encarnacion MD [address] [place] [address] PCP - General INTERNAL MEDICINE 03/16/19 documented as of this encounter
--- OUTSIDE RECORDS SUMMARY | 2024-09-08 21:09 | XMS_ITS | Encounter Summary ---
Author Organization [facility] Address [address] [place] [address]. [place] [address] [place] [address] Care Team Providers Care Grant Specialist Name Role Phone Unavailable Primary Care Provider Unavailabl e Encounter Details Date Type Department Care Team (Late st Contact Info) Description 08/23/2009 Abstract [facility] [address] [place] [address] , Ayleen Evangelista MD Social History Tobacco [...] EXTERNAL EJECTION FRACTION Routine 08/23/2009 12:00 AM DIRECTOR TRANSLATION documented in this encounter Results * EXTERNAL EJECTION FRACTION (08/23/2009 12:00 AM DIRECTOR TRANSLATION) EJECTION FRACTION 78.1 [facility] Comment: The planar and G-SPECT MUGA scans are abnormal. The left ventricular ejection fraction, however, is within normal limits at 78.1%. However, I cannot rule out cavity obliteration involving the distal half of the left ventricle. Clinical and/or echocardiographic correlation would be required. Anatomical Region Laterality Modality Other 08/23/2009 08/23/2009 Narrative 08/23/2009 12:00 AM DIRECTOR TRANSLATION Ryan PARISI M.D. us Generic Conversion Md SMITH OTHER Final R esult documented in this encounter Visit Diagnoses Not on filedocumented in this encounter
--- OUTSIDE RECORDS SUMMARY | 2024-09-08 21:09 | XMS_ITS | Encounter Summary ---
Author Organization [facility] Address [address] [place] [address]. [place] [address] [place] [address] Care Team Providers Care High School Learning Support Teacher Name Role Phone Unavailable Primary Care Provider Unavailabl e Encounter Details Date Type Department Care Team (Late st Contact Info) Description 06/10/2014 Abstract [facility] [address] [place] [address] Tyesha Salazar MD [address] [place] [address] Social History Tobacco Use Types [...]
--- OUTSIDE RECORDS SUMMARY | 2024-09-08 21:09 | XMS_ITS | Encounter Summary ---
Author Organization [facility] Address [address] [place] [address]. [place], [place] [address] [place] [address] Care Team Providers Care Museum Technician Name Role Phone Unavailable Primary Care Provider Unavailabl e Encounter Details Date Type Department Care Team (Late st Contact Info) Description 06/15/2009 Abstract [facility] [address] [place] [address] KRIS MILNER Social History Tobacco Use Types [...]
--- OUTSIDE RECORDS SUMMARY | 2024-09-08 21:09 | XMS_ITS | Encounter Summary ---
Author Organization [facility] Address Counts include 234 beds at the [facility]6 [facility] [place] [address] [place] [address] Care Team Providers Care Home Care Manager Name Role Phone Casa Encarnacion MD Primary Care Provider [phone] Encounter Details Date Type Department Care Team (Latest Contact Info) Description 03/08/2020 2:43 PM CDT - 03/08/2020 11:59 PM CDT Hospital Encounter [facility] [address] [place] [address] Julien Yoo MD [address] 5th Floor [place], [place] [address] Discharge Disposition: Home or Self Care (Routine [...] LDL 51 MG/DL 03/08/2020 3:45 PM CDT [facility] Comment:<100 OPTIMAL 03/08/2020 3:01 PM CDT Julien Yoo MD LABORATORY Final Result [facility] [address] [place] [address], [id number] documented in this encounter Visit Diagnoses Diagnosis Hyperlipidemia LDL goal <70 Other and unspecified hyperlipidemia documented in this encounter Care Teams Home Care Manager Relationship Specialty Start Date End Date Casa Encarnacion MD [address] [place] [address] PCP - General INTERNAL MEDICINE 03/16/19 documented as of this encounter
--- OUTSIDE RECORDS SUMMARY | 2024-09-08 21:09 | XMS_ITS | Encounter Summary ---
Author Organization [facility] Address [facility] [place] [address] [place] [address] Care Team Providers Care Fuel Assembler Name Role Phone Casa Encarnacion MD Primary Care Provider [phone] Encounter Details Date Type Department Care Team [...] on filedocumented in this encounter Care Teams Fuel Assembler Relationship Specialty Start Date End Date Casa Encarnacion MD [address] [place] [address] PCP - General INTERNAL MEDICINE 03/16/19 documented as of this encounter
--- OUTSIDE RECORDS SUMMARY | 2024-09-08 21:09 | XMS_ITS | Encounter Summary ---
Author Organization [facility] Address [facility]6 [facility] [address] [place] [address] Care Team Providers Care Industrial Conveyor Belt Repairer Name Role Phone Casa Encarnacion MD Primary Care Provider [phone] Encounter Details Date Type Department Care Team [...] on filedocumented in this encounter Care Teams Industrial Conveyor Belt Repairer Relationship Specialty Start Date End Date Casa Encarnacion MD [address] [place] [address] PCP - General INTERNAL MEDICINE 03/16/19 documented as of this encounter
--- OUTSIDE RECORDS SUMMARY | 2024-09-08 21:09 | XMS_ITS | Encounter Summary ---
Author Organization [facility] Address [address] [place] [address]. [place] [address] [place] [address] Care Team Providers Care Media Promoter Name Role Phone Unavailable Primary Care Provider Unavailabl e Encounter Details Date Type Department Care Team (Late st Contact Info) Description 02/24/2002 Abstract [facility] [address] [place] [address] , Generic Conversion, Social History [...]
--- OUTSIDE RECORDS SUMMARY | 2024-09-08 21:09 | XMS_ITS | Encounter Summary ---
Author Organization [facility] Address [address] [place] [address] Care Team Providers Care Pararescue Craftsman Name Role Phone Casa Encarnacion MD Primary Care Provider [phone] Reason for Visit * Reason Comments Follow-up Encounter Details Date Type Department Care Team (Late st Contact Info) Description 05/20/2018 10:10 AM CDT Office Visit [facility] [address] [facility] [address] [place] [address] Aye Dao MD [address] [facility] [address] [place] [address] Vulvodynia (Primary Dx); History of [...] CDT Office Visit [facility] - DOWEL INSPECTOR [address], [facility] [address] [place] [address] Aye Dao MD [address] [facility] [address] [place] [address] documented as of this encounter Visit Diagnoses Diagnosis Vulvodynia- Primary History of candidiasis Personal history of other infectious and parasitic disease documented in this encounter Care Teams Pararescue Craftsman Relationship Specialty Start Date End Date Casa Encarnacion MD PCP - General 12/12/15 documented as of this encounter
--- OUTSIDE RECORDS SUMMARY | 2024-09-08 21:09 | XMS_ITS | Encounter Summary ---
Author Organization [facility] Address [address] [facility] [place] [address] Care Team Providers Care Steam And Gas Turbines Assembler Name Role Phone Casa Encarnacion MD Primary Care Provider [phone] Reason for Visit * Reason Onset Date Comments Question 01/16/2018 Encounter Details Date Type Department Care Team (Late st Contact Info) Description 01/16/2018 Telephone [facility] [address] [place] [address] Aye Dao MD [address] [address] Question Social History Tobacco Use [...] send diflucan to her pharamcy. [facility] in [place], [place]. Will send to Dr. Zhao for review. * Telephone Encounter - Luisana Robb - 01/16/2018 2:32 PM CDT PT CALLED IN STATING SHE WOULD LIKE TO KNOW IF SHE CAN GET A SCRIPT FOR DIFLUCAN. PT STATES SHE HASBURNING. CALLBACK# [phone] documented in this encounter Plan of Treatment Upcoming Encounters Date Type Department Care Team (Late st Contact Info) Description 05/24/2025 2:00 PM CDT Office Visit [facility] - CLAIMS CLERK [facility] [facility] [address] [place] [address] Aye Dao MD [address] [facility] [address] [place] [address] documented as of this encounter Visit Diagnoses Diagnosis Vaginal itching- Primary Pruritus of genital organs documented in this encounter Care Teams Steam And Gas Turbines Assembler Relationship Specialty Start Date End Date Casa Encarnacion MD PCP - General 12/12/15 documented as of this encounter
--- OUTSIDE RECORDS SUMMARY | 2024-09-08 21:09 | XMS_ITS | Encounter Summary ---
Author Organization [facility] Address [address] [place] [address]. [place] [address] [place] [address] Care Team Providers Care Word Processor Operator Name Role Phone Unavailable Primary Care Provider Unavailabl e Encounter Details Date Type Department Care Team (Late st Contact Info) Description 11/06/2002 Abstract [facility] [address] [place] [address] , Generic Conversion, Social History [...]
--- OUTSIDE RECORDS SUMMARY | 2024-09-08 21:09 | XMS_ITS | Encounter Summary ---
Author Organization [facility] Address [address] [place] [address]. [place], [place] [address] [place] [address] Care Team Providers Care Territory Sales Professional Name Role Phone Unavailable Primary Care Provider Unavailabl e Reason for Visit * Reason Comments Echo (SCAN) Encounter Details Date Type Department Care Team (Late st Contact Info) Description 04/23/2018 Scan [facility] [address] [place] [address] Scanned, Documents Echo (SCAN) Social [...]
--- OUTSIDE RECORDS SUMMARY | 2024-09-08 21:09 | XMS_ITS | Clinical Summary ---
Author Organization [facility] Address [facility] [place] [place] [address] [place] [address] Care Team Providers Care Fire Equipment Repairer Inspector Name Role Phone Casa Encarnacion MD Primary Care Provider [phone] Allergies Active Allergy Reactions Criticality Noted Date [...] Diagnosed Date Confusion 01/28/2020 Acute ischemic stroke ([facility]) 01/26/20 Family History Medical History Relation Comments [...] this topic Medical Devices Implanted Type Area Recovery Auditor Device Identifier Shelf Expiration Date Model / Serial / Lot Iol Tecnis Simplicity Dcb00 - [id number] Implanted:Qty: 1 on 01/21/2024 by Catherine Newman MD at [facility] Lens Left: Eye [employer] [id number] 05/05/2026 DCB00 / [id number] / DCB00 Tecnis 1-Piece Iol Implanted:Qty: 1 on 12/24/2023 by Catherine Newman MD at [facility] Right: Eye [employer] [id number] 04/14/2026 DCB00 / [id number] / [id number] Insurance MEDICARE MEDICARE [employer] PA[employer]ER Advance Directives * Full Code (Latest Code Status on File) Date Activated Date Inactivated Comments 01/26/2020 4:14 PM 01/31/2020 5:58 PM Care Teams Fire Equipment Repairer Inspector Relationship Specialty Start Date End Date Casa Encarnacion MD [address] [place] [address] PCP - General INTERNAL MEDICINE 03/16/19
--- OUTSIDE RECORDS SUMMARY | 2024-09-08 21:09 | XMS_ITS | Encounter Summary ---
Author Organization [facility] Address [address] [place] [address]. [place] [address] [place] [address] Care Team Providers Care Clerical Dentist Assistant Name Role Phone Unavailable Primary Care Provider Unavailabl e Encounter Details Date Type Department Care Team (Late st Contact Info) Description 12/20/2004 Abstract [facility] [address] [place] [address] [place] [address] [place] [address] Social History Tobacco Use Types Packs/Day [...]
--- OUTSIDE RECORDS SUMMARY | 2024-09-08 21:09 | XMS_ITS | Encounter Summary ---
Author Organization [facility] Address [address] [place] [address]. [place] [address] [place] [address] Care Team Providers Care Security Professionals Name Role Phone Unavailable Primary Care Provider Unavailabl e Encounter Details Date Type Department Care Team (Late st Contact Info) Description 11/03/2002 Abstract [facility] [address] [place] [address] , Generic Conversion, Social History [...]
--- OUTSIDE RECORDS SUMMARY | 2024-09-08 21:09 | XMS_ITS | Encounter Summary ---
Author Organization [facility] Address [address] [place] [address]. [place] [address] [place] [address] Care Team Providers Care Shared Services Manager Name Role Phone Unavailable Primary Care Provider Unavailabl e Encounter Details Date Type Department Care Team (Late st Contact Info) Description 06/07/2004 Abstract [facility] [address] [place] [address] [place] [address] [place] [address] Social History Tobacco Use Types Packs/Day [...]
--- OUTSIDE RECORDS SUMMARY | 2024-09-08 21:09 | XMS_ITS | Encounter Summary ---
Author Organization [facility] Address [address] [place] [address]. [place], [place] [address] [place] [address] Care Team Providers Care Material Handling Warehouse Supervisor Name Role Phone Unavailable Primary Care Provider Unavailabl e Encounter Details Date Type Department Care Team (Late st Contact Info) Description 09/20/2010 Abstract [facility] [address] [place] [address] Adam Pulido MD Social History Tobacco Use [...]
--- OUTSIDE RECORDS SUMMARY | 2024-09-08 21:09 | XMS_ITS | Encounter Summary ---
Author Organization [facility] Address [address] [place] [address]. [place] [address] [place] [address] Care Team Providers Care Signs Cleaner Name Role Phone Unavailable Primary Care Provider Unavailabl e Encounter Details Date Type Department Care Team (Late st Contact Info) Description 06/14/[address] [facility] [address] [facility] [address] [place] [address] [place] [phone] Social History Tobacco Use Types Packs/Day Years [...]
--- OUTSIDE RECORDS SUMMARY | 2024-09-08 21:09 | XMS_ITS | Encounter Summary ---
Author Organization [facility] Address [facility]. [place], [place] [address] [place] [address] Care Team Providers Care Business Solutions Consultant Name Role Phone Casa Encarnacion MD Primary Care Provider [phone] Reason for Visit * Reason Comments Hospital F/U stroke Encounter Details Date Type Department Care Team (Latest Contact Info) Description 03/08/2020 2:00 PM CDT Office Visit [facility] [address] [place] [address] Javi Yoo MD [address] 5th [place] [address] Hospital F/U (stroke) Social History Tobacco Use [...] Office Outpatient Follow-up Visit Brenda Wilson 1935 [id number] Patient: Brenda Wilson is being seen in [...] ??? HC EP STUDY PLUS SVT ABLATION [id number] ??? HYSTERECTOMY Social Hx: Social History Socioeconomic [...] file Gets together: Not on file Attends sabianist service: Not on file Active member of [...] She has normal strength. She has a dhhdioXigxbr-Hlrm-Hoczos Test. Psychiatric: Her speech is normal. Neurologic [...] 01/27/2020 Hospital EKG EKG: not completed. Outpatient Principal Strategist post-discharge Home Meds: No outpatient medications have [...] 01/27/2020 Echocardiography Report Pat.Name: BRENDA WILSON Pat.ID: [id number] St.Date: 01/27/2020 Refer.MD: JOELLE SON Exam Time: 2:38:00 PM Study Type:ECHO WITH CARDIAC DOPPLER COMP Height: 165cm Weight: 58.1kg BSA: 1.64 m2 Age: 8 1935,84Y Sex: FEMALE HR: 75 bpm Sonogrphr: Bolivar Iqbal RDCS Pat. Stat. :Inpatient Room: 830 CPT - 4: 16213 Reason for Study: TIA Procedures: 2D, M- [...] Mass 2D Value 126 g LV Mass Lpydu0I Value 76.8 g/m2 Right Ventricle Right Ventricle [...] LDL 51 MG/DL 03/08/2020 3:45 PM CDT [facility] Comment:<100 OPTIMAL 03/08/2020 3:01 PM CDT Javi Yoo MD LABORATORY Final Result [facility] [address] [place] [address], [id number] documented in this encounter Visit Diagnoses Diagnosis Hyperlipidemia LDL goal <70- Primary Other and unspecified hyperlipidemia History of ischemic stroke in prior three months documented in this encounter Care Teams Business Solutions Consultant Relationship Specialty Start Date End Date Casa Encarnacion MD [address] [place] [address] PCP - General INTERNAL MEDICINE 03/16/19 documented as of this encounter
--- OUTSIDE RECORDS SUMMARY | 2024-09-08 21:09 | XMS_ITS | Encounter Summary ---
Author Organization [facility] Address [address] [place] [address]. [place] [address] [place] [address] Care Team Providers Care Jacquard Plate Maker Name Role Phone Unavailable Primary Care Provider Unavailabl e Encounter Details Date Type Department Care Team (Late st Contact Info) Description 06/10/2014 Abstract [facility] [address] [place] [address] Tyesha Salazar MD [address] [place] [address] Social History Tobacco Use Types [...]
--- OUTSIDE RECORDS SUMMARY | 2024-09-08 21:09 | XMS_ITS | Encounter Summary ---
Author Organization [facility] Address [address] [facility] [place] [address] Care Team Providers Care Oxyacetylene Welder Name Role Phone Casa Encarnacion MD Primary Care Provider [phone] Encounter Details Date Type Department Care Team (Late Contact Info) Description 01/21/2018 Orders Only [facility] Obstetrics Gynecology and Women's Health [address] [place], [place] [id number] Bhumika Herrera Social History Tobacco Use Types [...] 05/24/2025 2:00 PM CDT Office Visit [facility] - SHEET METAL FOR[facility] [address] [facility] [address] [place] [address] Aye Dao MD [address] [facility] [address] [place] [address] documented as of this encounter Visit Diagnoses Not on filedocumented in this encounter Care Teams Oxyacetylene Welder Relationship Specialty Start Date End Date Casa Encarnacion MD PCP - General 12/12/15 documented as of this encounter
--- OUTSIDE RECORDS SUMMARY | 2024-09-08 21:09 | XMS_ITS | Encounter Summary ---
Author Organization [facility] Address [address] [place] [address]. [place] [address] [place] [address] Care Team Providers Care Sink Maker Name Role Phone Casa Encarnacion MD Primary Care Provider [phone] Encounter Details Date Type Department Care Team [...] or climbing stairs? No 01/26/2020 5:15 PM Unqiue Rueda RN Ac tive * Question Answer [...] on filedocumented in this encounter Care Teams Sink Maker Relationship Specialty Start Date End Date Casa Encarnacion MD [address] [place] [phone] PCP - General INTERNAL MEDICINE 03/16/19 documented as of this encounter
--- OUTSIDE RECORDS SUMMARY | 2024-09-08 21:09 | XMS_ITS | Encounter Summary ---
Author Organization [facility] Address [address] [facility] [place] [address] Care Team Providers Care Animal Geneticist Name Role Phone Casa Encarnacion MD Primary Care Provider [phone] Reason for Visit * Reason Onset Date Comments Med Question 03/05/2018 Encounter Details Date Type Department Care Team (Late st Contact Info) Description 03/05/2018 Telephone [facility] [address] [place] [address] Aye Dao MD [address] [address] Med Question Social History Tobacco [...] AND WOULD LIKE TO TALK TOSOMEONE. CALLBACK# [phone] documented in this encounter Plan of Treatment Upcoming Encounters Date Type Department Care Team (Late st Contact Info) Description 05/24/2025 2:00 PM CDT Office Visit [facility] - HEALTH IT SPECIALIST 1031 [facility] 200 [place] [address] Aye Dao MD 1031 [facility] 400 [place] [address] documented as of this encounter Visit Diagnoses Not on filedocumented in this encounter Care Teams Animal Geneticist Relationship Specialty Start Date End Date Casa Encarnacion MD PCP - General 12/12/15 documented as of this encounter
--- OUTSIDE RECORDS SUMMARY | 2024-09-08 21:09 | XMS_ITS | Encounter Summary ---
Author Organization [facility] Address [address] [place] [address]. [place] [address] [place] [address] Care Team Providers Care Lotteries Agent Name Role Phone Casa Encarnacion MD Primary Care Provider [phone] Reason for Visit * Auth/Cert Specialty Diagnoses / Procedures Referred By Rosalva t Referred To Contact Diagnoses H25.9 Procedures REMV CATARACT EXTRACAP,INSERT LENS EXTRACTION CATARACT right EYE WITH LENS IMPLANT Referral ID Status Reason Start Date Expiration Date Visits Re quested Visits Authorized [id number] 1 1 Encounter Details Date Type Department Care Team (Late st Contact Info) Description 12/24/2023 12:00 PM CDT Anesthesia Event [facility] [address] [place] [address] Salazar Verde, PROPOSAL EDITOR [address] [place] [address] Anesthesia Record Procedure Summary Procedure Name Responsible Anesthesiologist Anesthesia Start Time Anesthesia Stop Time EXTRACTION CATARACT right EYE WITH LENS IMPLANT (Right: Eye) 12/24/23 1200 12/24/23 1218 Events Date Time Event Comment 12/24/2023 1141 AN PROPOSAL EDITOR Prepped 1141 AN Anesthesia Prepped 1145 1200 [...] mg documented in this encounter Care Teams Lotteries Agent Relationship Specialty Start Date End Date Casa Encarnacion MD [address] [place] [address] PCP - General INTERNAL MEDICINE 03/16/19 documented as of this encounter
--- OUTSIDE RECORDS SUMMARY | 2024-09-08 21:09 | XMS_ITS | Encounter Summary ---
Author Organization [facility] Address [address] [place] [address]. 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 treat [facility] [address] [place] [address] Phone: tel: Referral ID Status Reason Start Date Expiration Date V isits Requested Visits Authorized [id number] Canceled 01/28/2020 02/27/2021 1 1 * (Routine) - Canceled Specialty Diagnoses / Procedures Referred By Contac t Referred To Contact Procedures OT Eval and Treat [facility] [address] [place] [address] Phone: tel: Referral ID Status Reason Start Date Expiration Date V isits Requested Visits Authorized [id number] Canceled 01/28/2020 02/27/2021 1 1 * (Routine) - Canceled Specialty Diagnoses / Procedures Referred By Contac t Referred To Contact Procedures PT Eval and Treat [facility] Medical Oncology [address] [place] [address] Phone: tel: Referral ID Status Reason Start Date Expiration Date V isits Requested Visits Authorized [id number] Canceled 01/28/2020 02/27/2021 1 1 * Imaging (Urgent) - Closed Specialty Diagnoses / Procedures Referred By Contac t Referred To Contact RADIOLOGY Procedures US CAROTID DUPLEX CARLOS Chandra Stewart MD Phone: tel: fax: Referral ID Status Reason Start Date Expiration Date Visits Re quested Visits Authorized [id number] Closed 01/27/2020 02/26/2021 1 1 * Imaging (Urgent) - Closed Specialty Diagnoses / Procedures Referred By Contac t Referred To Contact RADIOLOGY Procedures USE ECHOCARDIOGRAM Chandra Stewart MD Phone: tel: fax: Referral ID Status Reason Start Date Expiration Date Visits Re quested Visits Authorized [id number] Closed 01/27/2020 02/26/2021 1 1 * Imaging (Urgent) - Closed Specialty Diagnoses / Procedures Referred By Contac t Referred To Contact RADIOLOGY Procedures MRI BRAIN WWO CON Humphrey Chapin MD Phone: tel: fax: Referral ID Status Reason Start Date Expiration Date Visits Re quested Visits Authorized [id number] Closed 01/26/2020 02/25/2021 1 1 Reason for Visit * Auth/Cert Specialty Diagnoses / Procedures Referred By Contac t Referred To Contact Diagnoses CONFUSION Procedures GENERAL Referral ID Status Reason Start Date Expiration Date Visits Re quested Visits Authorized [id number] 1 1 Encounter Details Date Type Department Care Team (Latest Contact Info) Description 01/26/2020 4:01 PM CDT - 01/31/2020 3:45 PM CDT Hospital Encounter [facility] [address] [phone] Humphrey Chapin MD [address] [place] [address] Chandra Stewart MD [address] [place] [address] Discharge Disposition: Home or Self Care (Routine [...] Stewart MD - 01/31/2020 10:44 AM CDT [facility] Hospitalist Discharge Summary Patient ID: Brenda Gotti [id number] 84-year-old 1935 Admit date: 01/26/2020 Discharge date: 01/31/2020 Primary Care Physician: KIEL HADLEY MD Admitting Physician: Humphrey Chapin MD Discharge Physician: CHANDRA STEWART MD Consulting Physician: [facility] Stroke neurology Reason for Admission: [...] 01/27/2020 Echocardiography Report Pat.Name: BRENDA GOTTI Pat.ID: [id number] St.Date: 01/27/2020 Refer.MD: CHANDRA STEWART Exam Time: 2:38:00 PM Study Type:ECHO WITH CARDIAC DOPPLER COMP Height: 165cm Weight: 58.1kg BSA: 1.64 m2 Age: 6 1935,84Y Sex: FEMALE HR: 75 bpm Sonogrphr: Bolivar Iqbal RDCS Pat. Stat.: Inpatient Room: 830 CPT - 4: 51224 Reason for Study: TIA Procedures: 2D, M-mode, [...] Mass 2D Value 126 g LV Mass Etwlh1B Value 76.8 g/m2 Right Ventricle Right Ventricle [...] through Care Everywhere. * Stroke Discharge Instructions (Gibraltarian) * Stroke (Gibraltarian) * Going Home on Blood Thinners (Gibraltarian) documented in this encounter Medications at Time [...] 2 wheeled walker-per PT Activity Recommendation for forward air controller/air officer: Up with 1, 2ww 01/31/20 1144 Therapy [...] of support Other (Comment) No LOB Modified [place] Score Interval Daily Score 0-6 3 Moderate [...] the consult. JEREMIAH SHAH PharmD Phone number: [phone] 01/31/2020 11:49 AM * Teressa Connors RN [...] weight 60.7 kg (133 lb 13.1 oz), [id number] %. No fever. Output: Producing urine and [...] home with 31/03 assistance Activity Recommendation for forward air controller/air officer: SBA Assessment: Pt demonstrating progression towards OT [...] no devices used Coordination Coordination WFL Modified [place] Score Interval Daily Score 0-6 3 Moderate [...] recommendation: 2 wheeled walker Activity Recommendation for forward air controller/air officer: up with assist of 1 and use [...] abduction, mini squats, and calf raises. Modified [place] Score Interval Daily Score 0-6 3 Moderate [...] all surfaces to/from all surfaces with Modified [place] using wheeled walker to increase functional mobility and transfers. Pt will participate within skilled therapy services for 20-30 minutes with 1-2 rest breaks to increase independence with ADLs and functional transfers. Pt will increase dynamic balance sitting on soft surface to complete ADLs with [place] for 20-30 minutes to increase safety and independence with ADLs and functional transfers. Pt will increase dynamic standing balance standing at sink/dressing completing ADLs with Modified [place] with wheeled walker for 20-30 minutes to [...] able to ascend/descend 3 steps with Modified [place] using handrail(s) to increasestrength and to safely [...] weight 58.1 kg (128 lb 1.4 oz), [id number] %. No fever. Output: Producing urine and [...] the consult. YEISON CONTRERAS PharmD Phone number: [phone] 01/28/2020 12:54 PM * Jane Rivera RN [...] DC Summary to: [facility] at [phone] with dc orders. [facility] aware pt will be discharged today. Daughter Rafaela will flower buncher or picker at at 1600 at the main [facility]. [place] [phone] prior to reaching the hospital to have pt brought down to the main [facility] for transport home. Rafaela's phone number is [phone]. HOLD DC. Pt will is not ready for dc today. CM called daughter Rafaela and advised. CM called [facility] and advised we will call when pt is ready. * Joann Rodriguez, PT - 01/28/2020 11:43 AM CDT PT Initial Evaluation Discharge Recommendation: home with assistance Activity Recommendation for forward air controller/air officer: up with one 01/28/20 1143 Therapy Visit Ordering Provider MD Witner PT Received On 01/28/20 Subjective Pt agreeable [...] Level of Evaluation Moderate Prognosis Good Modified [place] Score Interval Daily Score 0-6 3 Moderate [...] recommendation: 2 wheeled walker Activity Recommendation for forward air controller/air officer: SBA with 2ww Assessment: DISCOUNT CLERK Pt was independently completing all ADLs and [...] Level of Evaluation Moderate Prognosis Good Modified [place] Score Interval Daily Score 0-6 3 Moderate [...] education;Nursing aware of session * Kesha Fang, FUEL CELL ASSEMBLER - 01/28/2020 11:18 AM CDT FUEL CELL ASSEMBLER Initial Stroke Evaluation Diet Recommendation: As medically [...] daughter. Patient reports her daughter assists with appliance painter and refinisher including cooking, cleaning, and laundry. However, patient [...] any accepted trials during bedside swallowing evaluation. [employer] administered the Yariel Cognitive Assessment (MOCA). The following represents patient's [...] in spontaneous speech. 01/28/20 0900 Therapy Visit FUEL CELL ASSEMBLER Received on 01/28/20 Treatment Day 01/28/2020 Subjective Patient alert and upright in bed. Patient pleasant and fully cooperative throughout evaluation. 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 Past medical history per EMR includes arthritis, HTN, SVT s/p ablation, aortic stenosis, HLD. Prior Level of Function Patient reportedly consumes a general diet with thin liquids with no prior difficulty swallowing. Verified Two Patient Identifiers Yes Patient consents to Therapy Yes Acute Inpatient FUEL CELL ASSEMBLER Time Calculation FUEL CELL ASSEMBLER Start Time 1041 FUEL CELL ASSEMBLER Stop Time 1118 FUEL CELL ASSEMBLER Time Calculation (min) 37 min Precautions Precautions Aspiration;Stroke protocol Instructed on Precautions Yes;Verbalizes understanding;Demonstrates understanding Pain Pain No Pain score 0 FUEL CELL ASSEMBLER Recommendations Recommendations FUEL CELL ASSEMBLER during hospitalization;Home with assistance Recommended Solid Diet Regular Recommended Liquid Consistency Thin Recommended Medication Form Whole Plan FUEL CELL ASSEMBLER Treatments/Interventions Cognitive communication treatment;Language treatment FUEL CELL ASSEMBLER Frequency 1 time/week;3 times/week If this is [...] to depression, etc. 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 They are open to the need for rehab and if possible--they would like the mother to come home--yet are also open to rehab at [facility] . 01/27/20 1448 Referral Data Referral Reason Discharge Planning Source of Information Patient Baseline ADL's Functional Status Independent Living Arrangements Children Type of Residence Private residence Active DME (no DME) Bathing/Grooming Assistance No Dressing Assistance No Behavior Oriented;Cooperative Communication Talks;Understands speaking;Understands Gibraltarian Anticipated DC Plan Living Arrangements Children Support [...] Chapin MD - 01/26/2020 3:39 PM CDT [facility] Hospitalist History & Physical Attending Provider: Humphrey Chapin MD PCP: KIEL HADLEY MD Chief Complaint: AMS HPI: Brenda Gotti is an 84-year-old female transferred from [facility] for evaluation of AMS. PT was last [...] knows her first name, thinks she is [place]. Follows commands. Some expressive aphasia. Gait is [...] Gotti Date of : 1935 Medical Record: [id number] Age: 84-year-old Date of procedure: 01/27/20, from 0702 to 0743 Referring Physician: Chandra Stewart MD Clinical History: Patient with altered mental status, concern for possible seizures. Diagnosis code: Seizures/Events NOS R56.9 Current Medications: lipitor, metoprolol Technical Summary: A routine EEG with 21-channel digital EEG with single - channel EKG, was recorded using a [employer] system at a sampling rate of 200 [...] Office Inpatient Consultation Note Brenda Gotti 1935 [id number] Inpatient Consult to Neurology Consult performed by: [...] thinks he received his care here at [facility]. She does not smoke does not use [...] ??? HC EP STUDY PLUS SVT ABLATION 63397 ??? HYSTERECTOMY Home Meds: Prior to Admission [...] file Gets together: Not on file Attends anglican service: Not on file Active member of [...] has normal strength. She has an abnormal Wcueyb-Ixgf-Knopbi Test and an abnormal Romberg Test. Reflex [...] No results for input(s): PH, PCO2, PO2, [id number], BICARBWB, BASEDEFICIT,BASEEXCESS in the last 168 hours. [...] no sensory loss Best Language (9. ): Aqgv-jp-ywwwynms aphasia Dysarthria (10. ): Normal Extinction and [...] DOUBLE CHECK AND FAXED DC ORDERS TO [facility]. * Unique Mejia RN - 01/26/2020 5:10 [...] - 145 MMOL/L 01/31/2020 5:51 AM CDT [facility] POTASSIUM S/P/B 3.1(L) 3.5 - 5.1 MMOL/L 01/31/2020 5:51 AM CDT [facility] CHLORIDE S/P/B 110(H) 98 - 107 MMOL/L 01/31/2020 5:51 AM T [facility] CO2 25.3 21.0 - 32.0 MMOL/L 01/31/2020 5:51 AM [facility] GLUCOSE 94 74 - 106 MG/DL 01/31/2020 5:51 AM [facility] BUN 23(H) 7 - 18 MG/DL 01/31/2020 5:51 AM T [facility] CREATININE S/P/B 0.81 0.55 - 1.02 MG/DL 01/31/2020 5:51 AM [facility] CALCIUM S/P/B 9.1 8.5 - 10.1 MG/DL 01/31/2020 5:51 AM [facility] ANION GAP 5.7 5.0 - 15.0 MMOL/L 01/31/2020 5:51 AM [facility] Comment:REFERENCE RANGE NOT ESTABLISHED OSMOLALITY (CALC) 295 MOSM/KG 020 5:51 AM [facility] Comment:REFERENCE RANGE NOT ESTABLISHED EGFR NON-AFR. AMER. 68(L) >90 ML/MIN/1. 73 M2 01/31/2020 5:51 AM [facility] EGFR AFR. AMER. 78(L) >90 ML/MIN/1. 73 M2 01/31/2020 5:51 AM [facility] GFR NOTES GFR REFERENCE S: 01/31/2020 5:51 AM [facility] Comment: THE ESTIMATED GFR IS [...] CDT Chandra Stewart MD LABORATORY Final Result [facility] [address] [place] [address], [id number] * (ABNORMAL) CBC W/DIFF AUTOMATED (01/31/2020 5:08 AM CDT) WBC 9.6 4.0 - 10.8 x10'3/uL 01/31/2020 5:27 AM CDT [facility] RBC 4.13 4.10 - 5.40 x10'6/uL 01/31/2020 5:27 AM CDT [facility] HGB 12.0 12.0 - 16.0 G/DL 01/31/2020 5:27 AM CDT [facility] HCT 36.9 36.0 - 47.0 % 01/31/2020 5:27 AM CDT [facility] MCV 89.3 78.0 - 100.0 FL 01/31/2020 5:27 AM CDT [facility] MCH 29.1 27.0 - 31.0 PG 01/31/2020 5:27 AM CDT [facility] MCHC 32.5(L) 33.0 - 36.0 G/DL 01/31/2020 5:27 AM CDT [facility] RDW 14.1 11.5 - 14.5 % 01/31/2020 5:27 AM CDT [facility] PLT 296 150 - 350 x10'3/uL 01/31/2020 5:27 AM CDT [facility] MPV 10.9(H) 7.4 - 10.4 FL 01/31/2020 5:27 AM CDT [facility] ABS. NEUTROPHILS TOTAL 5.62 1.60 - 8.30 x10'3/uL 01/31/2020 5:27 AM CDT [facility] ABS. LYMPHOCYTES 2.87 0.80 - 4.70 x10'3/uL 01/31/2020 5:27 AM CDT [facility] ABS. MONOCYTES 0.72 0.00 - 1.50 x10'3/uL 01/31/2020 5:27 AM CDT [facility] ABS. EOSINOPHILS 0.25 0.00 - 0.40 x10'3/uL 01/31/2020 5:27 AM CDT [facility] ABS. BASOPHILS 0.06 0.00 - 0.20 x10'3/uL 01/31/2020 5:27 AM CDT [facility] ABS. IMMATURE GRANULOCYTES 0.03 0.00 - 0.03 x10'3/uL 01/31/2020 5:27 AM CDT [facility] ABS. NUCLEATED RBC'S 0.00 0.0 x10'3/uL 01/31/2020 5:27 AM CDT [facility] 01/31/2020 5:08 AM CDT Chandra Stewart MD LABORATORY Final Result [facility] [address] [place] [address], [id number] * (ABNORMAL) BASIC METABOLIC PANEL (01/30/2020 7:16 AM CDT) SODIUM S/P/B 140 136 - 145 MMOL/L 01/30/2020 7:50 AM CDT [facility] POTASSIUM S/P/B 3.3(L) 3.5 - 5.1 MMOL/L 01/30/2020 7:50 AM CDT [facility] CHLORIDE S/P/B 108(H) 98 - 107 MMOL/L 01/30/2020 7:50 AM CDT [facility] CO2 24.3 21.0 - 32.0 MMOL/L 01/30/2020 7:50 AM T [facility] GLUCOSE 98 74 - 106 MG/DL 01/30/2020 7:50 AM [facility] BUN 22(H) 7 - 18 MG/DL 01/30/2020 7:50 AM [facility] CREATININE S/P/B 0.92 0.55 - 1.02 MG/DL 01/30/2020 7:50 AM T [facility] CALCIUM S/P/B 9.0 8.5 - 10.1 MG/DL 01/30/2020 7:50 AM [facility] ANION GAP 7.7 5.0 - 15.0 MMOL/L 01/30/2020 7:50 AM [facility] Comment:REFERENCE RANGE NOT ESTABLISHED OSMOLALITY (CALC) 293 MOSM/KG 020 7:50 AM [facility] Comment:REFERENCE RANGE NOT ESTABLISHED EGFR NON-AFR. AMER. 58(L) >90 ML/MIN/1. 73 M2 01/30/2020 7:50 AM [facility] EGFR AFR. AMER. 67(L) >90 ML/MIN/1. 73 M2 01/30/2020 7:50 AM [facility] GFR NOTES GFR REFERENCE S: 01/30/2020 7:50 AM [facility] Comment: THE ESTIMATED GFR IS [...] CDT Chandra Stewart MD LABORATORY Final Result [facility] [address] [place] [address], [id number] * (ABNORMAL) CBC W/DIFF AUTOMATED (01/30/2020 7:16 AM CDT) WBC 10.1 4.0 - 10.8 x10'3/uL 01/30/2020 7:23 AM CDT [facility] RBC 4.26 4.10 - 5.40 x10'6/uL 01/30/2020 7:23 AM CDT [facility] HGB 12.6 12.0 - 16.0 G/DL 01/30/2020 7:23 AM CDT [facility] HCT 37.9 36.0 - 47.0 % 01/30/2020 7:23 AM CDT [facility] MCV 89.0 78.0 - 100.0 FL 01/30/2020 7:23 AM CDT [facility] MCH 29.6 27.0 - 31.0 PG 01/30/2020 7:23 AM CDT [facility] MCHC 33.2 33.0 - 36.0 G/DL 01/30/2020 7:23 AM CDT [facility] RDW 14.1 11.5 - 14.5 % 01/30/2020 7:23 AM CDT [facility] PLT 301 150 - 350 x10'3/uL 01/30/2020 7:23 AM CDT [facility] MPV 10.5(H) 7.4 - 10.4 FL 01/30/2020 7:23 AM CDT [facility] ABS. NEUTROPHILS TOTAL 6.22 1.60 - 8.30 x10'3/uL 01/30/2020 7:23 AM CDT [facility] ABS. LYMPHOCYTES 2.86 0.80 - 4.70 x10'3/uL 01/30/2020 7:23 AM CDT [facility] ABS. MONOCYTES 0.75 0.00 - 1.50 x10'3/uL 01/30/2020 7:23 AM CDT [facility] ABS. EOSINOPHILS 0.10 0.00 - 0.40 x10'3/uL 01/30/2020 7:23 AM CDT [facility] ABS. BASOPHILS 0.08 0.00 - 0.20 x10'3/uL 01/30/2020 7:23 AM CDT [facility] ABS. IMMATURE GRANULOCYTES 0.04(H) 0.00 - 0.03 x10'3/uL 01/30/2020 7:23 AM CDT [facility] ABS. NUCLEATED RBC'S 0.00 0.0 x10'3/uL 01/30/2020 7:23 AM CDT [facility] 01/30/2020 7:16 AM CDT Chandra Stewart MD LABORATORY Final Result [facility] [address] [id number], [id number] * CLOSTRIDIUM DIFFICILE (01/30/2020 7:00 AM CDT) SPEC DESCRIPTION STOOL 01/30/2020 7:00 AM CDT [facility] SPECIAL REQUESTS NO SPECIAL REQUEST 01/30/2020 7:00 AM CDT [facility] RESULT TEST CANCELLED BY THE INFECTION PREVENTION DEPARTMENT. PER DR STEWART 01/30/2020 11:19 AM CDT [facility] STOOL SPECIMEN / Unknown 01/30/2020 7:00 AM CDT 01/30/2020 11:16 AM CDT Grecia Richards NP BODY FLUIDS AND STOOLS ORDER [place] Final Result [facility] [address] [place] [address], [id number] * (ABNORMAL) BASIC METABOLIC PANEL (01/29/2020 5:17 AM CDT) SODIUM S/P/B 139 136 - 145 MMOL/L 01/29/2020 6:44 AM CDT [facility] POTASSIUM S/P/B 3.4(L) 3.5 - 5.1 MMOL/L 01/29/2020 6:44 AM CDT [facility] CHLORIDE S/P/B 106 98 - 107 MMOL/L 01/29/2020 6:44 AM CDT [facility] CO2 27.0 21.0 - 32.0 MMOL/L 01/29/2020 6:44 AM CDT [facility] GLUCOSE 96 74 - 106 MG/DL 01/29/2020 6:44 AM CDT [facility] BUN 16 7 - 18 MG/DL 01/29/2020 6:44 AM CDT [facility] CREATININE S/P/B 0.80 0.55 - 1.02 MG/DL 01/29/2020 6:44 AM CDT [facility] CALCIUM S/P/B 9.1 8.5 - 10.1 MG/DL 01/29/2020 6:44 AM CDT [facility] ANION GAP 6.0 5.0 - 15.0 MMOL/L 01/29/2020 6:44 AM CDT [facility] Comment:REFERENCE RANGE NOT ESTABLISHED OSMOLALITY (CALC) 289 MOSM/KG 020 6:44 AM CDT [facility] Comment:REFERENCE RANGE NOT ESTABLISHED EGFR NON-AFR. AMER. 69(L) >90 ML/MIN/1. 73 M2 01/29/2020 6:44 AM CDT [facility] EGFR AFR. AMER. 80(L) >90 ML/MIN/1. 73 M2 01/29/2020 6:44 AM CDT [facility] GFR NOTES GFR REFERENCE S: 01/29/2020 6:44 AM CDT [facility] Comment: THE ESTIMATED GFR IS [...] us Chandra Stewart MD LABORATORY Final Result [facility] [address] [place] [address], [id number] * (ABNORMAL) CBC W/DIFF AUTOMATED (01/29/2020 5:17 AM CDT) WBC 9.0 4.0 - 10.8 x10'3/uL 01/29/2020 6:22 AM CDT [facility] RBC 4.01(L) 4.10 - 5.40 x10'6/uL 01/29/2020 6:22 AM CDT [facility] HGB 11.9(L) 12.0 - 16.0 G/DL 01/29/2020 6:22 AM CDT [facility] HCT 37.0 36.0 - 47.0 % 01/29/2020 6:22 AM CDT [facility] MCV 92.3 78.0 - 100.0 FL 01/29/2020 6:22 AM CDT [facility] MCH 29.7 27.0 - 31.0 PG 01/29/2020 6:22 AM CDT [facility] MCHC 32.2(L) 33.0 - 36.0 G/DL 01/29/2020 6:22 AM CDT [facility] RDW 14.0 11.5 - 14.5 % 01/29/2020 6:22 AM CDT [facility] PLT 284 150 - 350 x10'3/uL 01/29/2020 6:22 AM CDT [facility] MPV 11.1(H) 7.4 - 10.4 FL 01/29/2020 6:22 AM CDT [facility] ABS. NEUTROPHILS TOTAL 6.08 1.60 - 8.30 x10'3/uL 01/29/2020 6:22 AM CDT [facility] ABS. LYMPHOCYTES 2.13 0.80 - 4.70 x10'3/uL 01/29/2020 6:22 AM CDT [facility] ABS. MONOCYTES 0.64 0.00 - 1.50 x10'3/uL 01/29/2020 6:22 AM CDT [facility] ABS. EOSINOPHILS 0.12 0.00 - 0.40 x10'3/uL 01/29/2020 6:22 AM CDT [facility] ABS. BASOPHILS 0.04 0.00 - 0.20 x10'3/uL 01/29/2020 6:22 AM CDT [facility] ABS. IMMATURE GRANULOCYTES 0.03 0.00 - 0.03 x10'3/uL 01/29/2020 6:22 AM CDT [facility] ABS. NUCLEATED RBC'S 0.00 0.0 x10'3/uL 01/29/2020 6:22 AM CDT [facility] 01/29/2020 5:17 AM CDT us Chandra Stewart MD LABORATORY Final Result [facility] [address] [place] [address], [id number] * (ABNORMAL) BASIC METABOLIC PANEL (01/28/2020 7:53 AM CDT) SODIUM S/P/B 139 136 - 145 MMOL/L 01/28/2020 8:35 AM CDT [facility] POTASSIUM S/P/B 3.8 3.5 - 5.1 MMOL/L 01/28/2020 8:35 AM CDT [facility] CHLORIDE S/P/B 107 98 - 107 MMOL/L 01/28/2020 8:35 AM CDT [facility] CO2 26.9 21.0 - 32.0 MMOL/L 01/28/2020 8:35 AM CDT [facility] GLUCOSE 102 74 - 106 MG/DL 01/28/2020 8:35 AM CDT [facility] BUN 12 7 - 18 MG/DL 01/28/2020 8:35 AM CDT [facility] CREATININE S/P/B 0.74 0.55 - 1.02 MG/DL 01/28/2020 8:35 AM CDT [facility] CALCIUM S/P/B 9.2 8.5 - 10.1 MG/DL 01/28/2020 8:35 AM CDT [facility] ANION GAP 5.1 5.0 - 15.0 MMOL/L 01/28/2020 8:35 AM CDT [facility] Comment:REFERENCE RANGE NOT ESTABLISHED OSMOLALITY (CALC) 288 MOSM/KG 020 8:35 AM CDT [facility] Comment:REFERENCE RANGE NOT ESTABLISHED EGFR NON-AFR. AMER. 75(L) >90 ML/MIN/1. 73 M2 01/28/2020 8:35 AM CDT [facility] EGFR AFR. AMER. 87(L) >90 ML/MIN/1. 73 M2 01/28/2020 8:35 AM CDT [facility] GFR NOTES GFR REFERENCE S: 01/28/2020 8:35 AM CDT [facility] Comment: THE ESTIMATED GFR IS [...] CDT Chandra Stewart MD LABORATORY Final Result [facility] [address] [place] [address], [id number] * (ABNORMAL) CBC W/DIFF AUTOMATED (01/28/2020 7:53 AM CDT) WBC 10.4 4.0 - 10.8 x10'3/uL 01/28/2020 8:08 AM CDT [facility] RBC 4.07(L) 4.10 - 5.40 x10'6/uL 01/28/2020 8:08 AM CDT [facility] HGB 12.4 12.0 - 16.0 G/DL 01/28/2020 8:08 AM CDT [facility] HCT 37.2 36.0 - 47.0 % 01/28/2020 8:08 AM CDT [facility] MCV 91.4 78.0 - 100.0 FL 01/28/2020 8:08 AM CDT [facility] MCH 30.5 27.0 - 31.0 PG 01/28/2020 8:08 AM CDT [facility] MCHC 33.3 33.0 - 36.0 G/DL 01/28/2020 8:08 AM CDT [facility] RDW 13.8 11.5 - 14.5 % 01/28/2020 8:08 AM CDT [facility] PLT 266 150 - 350 x10'3/uL 01/28/2020 8:08 AM CDT [facility] MPV 10.7(H) 7.4 - 10.4 FL 01/28/2020 8:08 AM CDT [facility] ABS. NEUTROPHILS TOTAL 8.56(H) 1.60 - 8.30 x10'3/uL 01/28/2020 8:08 AM CDT [facility] ABS. LYMPHOCYTES 1.29 0.80 - 4.70 x10'3/uL 01/28/2020 8:08 AM CDT [facility] ABS. MONOCYTES 0.48 0.00 - 1.50 x10'3/uL 01/28/2020 8:08 AM CDT [facility] ABS. EOSINOPHILS 0.01 0.00 - 0.40 x10'3/uL 01/28/2020 8:08 AM CDT [facility] ABS. BASOPHILS 0.04 0.00 - 0.20 x10'3/uL 01/28/2020 8:08 AM CDT [facility] ABS. IMMATURE GRANULOCYTES 0.04(H) 0.00 - 0.03 x10'3/uL 01/28/2020 8:08 AM CDT [facility] ABS. NUCLEATED RBC'S 0.00 0.0 x10'3/uL 01/28/2020 8:08 AM CDT [facility] 01/28/2020 7:53 AM CDT us Chandra Stewart MD LABORATORY Final Result [facility] [address] [place] [address], [id number] * CULTURE, URINE (01/28/2020 3:55 AM CDT) SPEC DESCRIPTION URINE CLEAN CATCH 01/28/2020 3:54 AM CDT [facility] SPECIAL REQUESTS NO SPECIAL REQUEST 01/28/2020 3:54 AM CDT [facility] CULTURE RESULT >100,000 CFU/mL ENTEROCOCCUS FAECALIS 01/29/2020 8:32 PM CDT [facility] URINE SPECIMEN OBTAINED BY CLEAN [...] MICROBIOLOGY - GENERAL ORDERABLE S Final Result [facility] [address] [place] [address], [id number] * (ABNORMAL) URINALYSIS (01/28/2020 3:55 AM CDT) COLOR (U) LIGHT YELLOW 01/28/2020 5:07 AM CDT [facility] TRANSPARENCY HAZY 01/28/2020 5:07 AM CDT [facility] SPECIFIC GRAVITY (U) 1.013 1.002 - 1.035 01/28/2020 5:07 AM CDT [facility] U PH 7.0 5 - 8 01/28/2020 5:07 AM CDT [facility] PROTEIN (U) 30(A) NEGATIVE 01/28/2020 5:07 AM CDT [facility] URINE GLUCOSE NEGATIVE NEGATIVE MG/DL 01/28/2020 5:07 AM CDT [facility] KETONES MG/DL (U) TRACE(A) NEGATIVE 01/28/2020 5:07 AM CDT [facility] BILIRUBIN (U) NEGATIVE NEGATIVE 01/28/2020 5:07 AM CDT [facility] BLOOD (U) SMALL(A) NEGATIVE 01/28/2020 5:07 AM CDT [facility] NITRITES NEGATIVE NEGATIVE 01/28/2020 5:07 AM CDT [facility] UROBILINOGEN NORMAL 0 - 1 EU/DL 01/28/2020 5:07 AM CDT [facility] LEUKOCYTES (U) MODERATE(A) NEGATIVE 0 5:07 AM CDT [facility] RBC/HPF 5(H) 0 - 3 /HPF 01/28/2020 5:07 AM CDT [facility] WBC/HPF 158(H) 0 - 6 /HPF 01/28/2020 5:07 AM CDT [facility] BACTERIA (U) NONE /HPF 01/28/2020 5:07 AM CDT [facility] SQUAMOUS EPITHELIALS 3 01/28/2020 5:07 AM CDT [facility] URINE SPECIMEN OBTAINED BY CLEAN CATCH PROCEDURE / Unknown 01/28/2020 3:55 AM CDT us Chandra Stewart MD URINE ORDERABLES Final Result [facility] [address] [place] [address], [id number] * US CAROTID DUPLEX CARLOS (01/27/2020 8:20 [...] ?Echocardiography Report Pat.Name: ??MACHUGA, BRENDA ? Pat.ID: ?[id number] ? St.Date: ?? 01/27/2020 ? Refer.MD: ??CHANDRA STEWART ? Exam Time: 2:38:00 PM ? Study Type:ECHO WITH CARDIAC DOPPLER COMP Height: ?165cm ? Weight: ?58.1kg ? BSA: ? 1.64 m2 ?Age: ??1935,84Y ? Sex: ? FEMALE ?HR: ?75 bpm ? Sonogrphr: Bolivar Iqbal RDCS ? Pat. Stat.:Inpatient ? Room: ?830 ? CPT - 4: ?74050 ? Reason for Study: TIA ? Procedures: [...] ?? Value ?126 g ? LV Mass [id number] ?? Value ? 76.8 g/m2 ? Right [...] 01/27/2020 Echocardiography Report Pat.Name: BRENDA GOTTI Pat.ID: [id number] .Date: 01/27/2020 Refer.MD: CHANDRA STEWART Exam Time: 2:38:00 PM Study Type:ECHO WITH CARDIAC DOPPLER COMP Height: 165cm Weight: 58.1kg BSA: 1.64 m2 Age: 6 1935,84Y Sex: FEMALE HR: 75 bpm Sonogrphr: Bolivar Iqbal RDCS Pat. Stat.:Inpatient Room: 830 CPT - 4: 10206 Reason for Study: TIA Procedures: 2D, M-mode, [...] Mass 2D Value 126 g LV Mass [id number] Value 76.8 g/m2 Right Ventricle Right Ventricle [...] LIPID PANEL (01/27/2020 2:34 PM CDT) Pathologist [facility] CHOLESTEROL 236 MG/DL 01/27/2020 3:27 PM CDT [facility] Comment:BORDERLINE HIGH: 200 -239 TRIGLYCERIDES 101 MG/DL 01/27/2020 3:27 PM CDT [facility] Comment:<150 NORMAL HDL 69 >49 MG/DL 01/27/2020 3:27 PM CDT [facility] LDL (CALCULATED) 147 MG/DL 01/27/20 3:27 PM CDT [facility] Comment:130-159 BORDERLINE H IGH VLDL CALCULATION 20 MG/DL 01/27/20 3:27 PM CDT [facility] Comment:REFERENCE RANGE NOT ESTABLISHED CHOL/HDL RATIO 3.4 01/27/2020 3:27 PM CDT [facility] Comment:REFERENCE RANGE NOT ESTABLISHED LDL/HDL 2.1 01/27/2020 3:27 PM CDT [facility] Comment:REFERENCE RANGE NOT ESTABLISHED NON HDL CHOLESTEROL 167 MG/DL 01/27/2020 3:27 PM CDT [facility] Comment:REFERENCE RANGE NOT ESTABLISHED 01/27/2020 2:34 PM CDT Chandra Stewart MD LABORATORY Final Result [facility] [address] [place] [address], [id number] * HEMOGLOBIN, GLYCOSYLATED (01/27/2020 2:34 PM CDT) Pathologist [facility] HGB A1C 5.1 <5.7 % 01/27/2020 7:28 PM CDT [facility] ESTIMATED AVG GLUCOSE 100 74 - 114 MG/DL 01/27/2020 7:28 PM CDT [facility] 01/27/2020 2:34 PM CDT Chandra Stewart MD LABORATORY Final Result [facility] [address] [place] [address], [place] [phone] [id number] * EEG routine (01/27/2020 9:47 AM CDT) Narrative [facility] - 01/27/2020 9:47 AM CDT Krupa Santos MD ? 01/27/2020 ??9:54 AM Prolonged routine (~41 mins) Electroencephalogram (EEG) report: Patient name: Brenda Gotti Date of : 1935 Medical Record: [id number] Age: 84-year-old Date of procedure: 01/27/20, from 0702 to 0743 Referring Physician: Chandra Stewart MD Clinical History: Patient with altered mental status, concern for possible seizures. Diagnosis code: Seizures/Events NOS R56.9 Current Medications: lipitor, metoprolol Technical Summary: A routine EEG with 21-channel digital EEG with single - channel EKG, was recorded using a [employer] system at a sampling rate of 200 [...] Chapin MD NEUROLOGY ORDERABLES Final Resul t [facility] [address] [place] [address], [id number] * (ABNORMAL) BASIC METABOLIC PANEL (01/27/2020 5:58 AM CDT) SODIUM S/P/B 142 136 - 145 MMOL/L 01/27/2020 6:46 AM CDT [facility] POTASSIUM S/P/B 3.4(L) 3.5 - 5.1 MMOL/L 01/27/2020 6:46 AM CDT [facility] CHLORIDE S/P/B 108(H) 98 - 107 MMOL/L 01/27/2020 6:46 AM CDT [facility] CO2 31.3 21.0 - 32.0 MMOL/L 01/27/2020 6:46 AM CDT [facility] GLUCOSE 101 74 - 106 MG/DL 01/27/2020 6:46 AM CDT [facility] BUN 9 7 - 18 MG/DL 01/27/2020 6:46 AM CDT [facility] CREATININE S/P/B 0.77 0.55 - 1.02 MG/DL 01/27/2020 6:46 AM CDT [facility] CALCIUM S/P/B 8.8 8.5 - 10.1 MG/DL 01/27/2020 6:46 AM CDT [facility] ANION GAP 2.7(L) 5.0 - 15.0 MMOL/L 01/27/2020 6:46 AM CDT [facility] Comment:REFERENCE RANGE NOT ESTABLISHED OSMOLALITY (CALC) 293 MOSM/KG 020 6:46 AM CDT [facility] Comment:REFERENCE RANGE NOT ESTABLISHED EGFR NON-AFR. AMER. 72(L) >90 ML/MIN/1. 73 M2 01/27/2020 6:46 AM CDT [facility] EGFR AFR. AMER. 83(L) >90 ML/MIN/1. 73 M2 01/27/2020 6:46 AM CDT [facility] GFR NOTES GFR REFERENCE S: 01/27/2020 6:46 AM T [facility] Comment: THE ESTIMATED GFR IS [...] us Humphrey Chapin MD LABORATORY Final Result [facility] [address] [place] [address], [id number] * (ABNORMAL) CBC W/DIFF AUTOMATED (01/27/2020 5:58 AM CDT) WBC 8.6 4.0 - 10.8 x10'3/uL 01/27/2020 6:25 AM CDT [facility] RBC 4.06(L) 4.10 - 5.40 x10'6/uL 01/27/2020 6:25 AM CDT [facility] HGB 12.1 12.0 - 16.0 G/DL 01/27/2020 6:25 AM CDT [facility] HCT 37.0 36.0 - 47.0 % 01/27/2020 6:25 AM CDT [facility] MCV 91.1 78.0 - 100.0 FL 01/27/2020 6:25 AM CDT [facility] MCH 29.8 27.0 - 31.0 PG 01/27/2020 6:25 AM CDT [facility] MCHC 32.7(L) 33.0 - 36.0 G/DL 01/27/2020 6:25 AM CDT [facility] RDW 14.1 11.5 - 14.5 % 01/27/2020 6:25 AM CDT [facility] PLT 250 150 - 350 x10'3/uL 01/27/2020 6:25 AM CDT [facility] MPV 10.4 7.4 - 10.4 FL 01/27/2020 6:25 AM CDT [facility] ABS. NEUTROPHILS TOTAL 5.82 1.60 - 8.30 x10'3/uL 01/27/2020 6:25 AM CDT [facility] ABS. LYMPHOCYTES 1.96 0.80 - 4.70 x10'3/uL 01/27/2020 6:25 AM CDT [facility] ABS. MONOCYTES 0.53 0.00 - 1.50 x10'3/uL 01/27/2020 6:25 AM CDT [facility] ABS. EOSINOPHILS 0.25 0.00 - 0.40 x10'3/uL 01/27/2020 6:25 AM CDT [facility] ABS. BASOPHILS 0.04 0.00 - 0.20 x10'3/uL 01/27/2020 6:25 AM CDT [facility] ABS. IMMATURE GRANULOCYTES 0.03 0.00 - 0.03 x10'3/uL 01/27/2020 6:25 AM CDT [facility] ABS. NUCLEATED RBC'S 0.00 0.0 x10'3/uL 01/27/2020 6:25 AM CDT [facility] 01/27/2020 5:58 AM CDT Humphrey Chapin MD LABORATORY Final Result [facility] [address] [place] [address], [id number] * MRI BRAIN WWO CON (01/26/2020 6:19 [...] encounter Visit Diagnoses Diagnosis Acute ischemic stroke ([facility]) Unspecified cerebral artery occlusion with cerebral infarction [...] drink immediately. 1224 (Given - Provider: Riya Wild, RN) PRN Medication Order 01/29/2020 01/30/2020 01/31/2020 [...] KATLYN) documented in this encounter Care Teams Rag Washer Relationship Specialty Start Date End Date Kiel Hadley MD [address] [place] [address] PCP - General INTERNAL MEDICINE 03/16/19 documented as of this encounter
--- OUTSIDE RECORDS SUMMARY | 2024-09-08 21:09 | XMS_ITS | Encounter Summary ---
Author Organization [facility] Address [address] [place] [address]. [place] [address] [place] [address] Care Team Providers Care Home Health Specialist Name Role Phone Unavailable Primary Care Provider Unavailabl e Encounter Details Date Type Department Care Team (Late st Contact Info) Description 06/13/2004 Abstract [facility] CONVERSION [address] [place] [address] [place] [address] [place] [phone] Social History Tobacco Use Types Packs/Day [...]
--- OUTSIDE RECORDS SUMMARY | 2024-09-08 21:09 | XMS_ITS | Encounter Summary ---
Author Organization [facility] Address [address] [place] [address]. [place] [address] [place] [address] Care Team Providers Care Wire Mesh Gate Assembler Name Role Phone Casa Encarnacion MD Primary Care Provider [phone] Reason for Visit * Auth/Cert Specialty Diagnoses / Procedures Referred By Contac t Referred To Contact Diagnoses RECURRENT UTI'S Procedures CYSTOSCOPY Referral ID Status Reason Start Date Expiration Date Visits Re quested Visits Authorized [id number] 1 1 Encounter Details Date Type Department Care Team (Latest Contact Info) Description 07/06/2019 9:16 AM CDT - 07/06/2019 10:39 AM CDT [facility] [address] [place] [address] [place] [address] [place] [phone] Discharge Disposition: Home or Self Care [...] through Care Everywhere. * Cystoscopy Discharge Instructions (Cuban) documented in this encounter Medications at Time [...] III, MD - 07/06/2019 10:23 AM CDT [facility] Brief Op HSHSCYSTOSCOPY Procedure Note Luanne Quesadasera 07/06/2019 1008 Procedure(s) (LRB): CYSTOSCOPY (N/A) Surgeon(s): Marimar Alba III, MD Alcohol And Drug Counselor: None Anesthesia: Local Pre-Op Diagnosis: RECURRENT UTI'S [...] I will get the culture back from [place]. She has asked me to give her [...] DESCRIPTION URINE, CYSTOSCOPIC 07/06/2019 10:05 AM CDT [facility] SPECIAL REQUESTS NO SPECIAL REQUEST 07/06/2019 10:05 AM CDT [facility] CULTURE RESULT >100,000 CFU/mL KLEBSIELLA PNEUMONIAE PNEUMONIAE 07/07/2019 8:53 PM CDT [facility] Urine specimen (specimen) URINE CYTOLOGIC MATERIAL [...] MICROBIOLOGY - GENERAL O RDERABLES Final Result [facility] [address] [place] [address], [place] [phone] [id number] [facility] [address] [place] [address], documented in this encounter Visit Diagnoses Not on filedocumented in this encounter Active and Recently Administered Medications Times are shown in CDT. PRN Medication Order 07/04/2019 07/05/2019 07/06/2019 lidocaine 2 % URO-JET jelly (CANCELED) As needed, Starting on Fri07/06/19 at 1002, Until Fri07/06/19 at 1011, Intra-Op 1002 (Given - Provid er: Marimar Alba III, MD) documented in this encounter Care Teams Wire Mesh Gate Assembler Relationship Specialty Start Date End Date Casa Encarnacion MD [address] [place] [address] PCP - General INTERNAL MEDICINE 03/16/19 documented as of this encounter
--- OUTSIDE RECORDS SUMMARY | 2024-09-08 21:09 | XMS_ITS | Encounter Summary ---
Author Organization [facility] Address [address] [place] [address]. [place] [address] [place] [address] Care Team Providers Care Beef Tagger Name Role Phone Casa Hadley MD Primary Care Provider [phone] Encounter Details Date Type Department Care Team (Late st Contact Info) Description 03/16/2019 Orders Only [facility] [address] [place] [address] [place] [address] [place] [address] [place] [phone] Social History Tobacco Use Types Packs/Day [...] URINE CLEAN CATCH 03/16/2019 12:23 PM CDT [facility] SPECIAL REQUESTS NO SPECIAL REQUEST 03/16/2019 12:23 PM CDT [facility] CULTURE RESULT >100,000 CFU/mL ENTEROCOCCUS FAECALIS 03/18/2019 8:36 PM CDT [facility] URINE SPECIMEN OBTAINED BY CLEAN [...] MICROBIOLOGY - GENERAL O RDERABLES Final Result [facility] [address] [place] [address], [place] [phone] [id number] [facility] [address] [place] [address], * (ABNORMAL) URINALYSIS (03/16/2019 9:58 AM CDT) COLOR (U) YELLOW 03/16/2019 12:45 PM CDT [facility] TRANSPARENCY SLIGHTLY CLOUDY 03/16/2019 12:45 PM CDT [facility] SPECIFIC GRAVITY (U) 1.015 1.000 - 1.025 03/16/2019 12:45 PM CDT [facility] U PH 6.0 5.0 - 8.0 03/16/2019 12:45 PM CDT [facility] LEUKOCYTES (U) 2+(A) NEGATIVE 03/16/2019 12:45 PM CDT [facility] NITRITES NEGATIVE NEGATIVE 03/16/2019 12:45 PM CDT [facility] PROTEIN (U) TRACE(A) NEGATIVE 03/16/2019 12:45 PM CDT [facility] URINE GLUCOSE NEGATIVE NEGATIVE 03/16/2019 12:45 PM CDT [facility] KETONES MG/DL (U) NEGATIVE NEGATIVE 03/16/2019 12:45 PM CDT [facility] UROBILINOGEN 0.2 <1.0 EU/DL 03/16/2019 12:45 PM CDT [facility] BILIRUBIN (U) NEGATIVE NEGATIVE 03/16/2019 12:45 PM CDT [facility] BLOOD (U) NEGATIVE NEGATIVE 03/16/2019 12:45 PM CDT [facility] WBC/HPF 50-100(A) 0 - 5 /HPF 03/16/2019 12:45 PM CDT [facility] RBC/HPF 0-5 0 - 5 /HPF 03/16/2019 12:45 PM CDT [facility] EPI/HPF FEW /LPF 03/16/2019 12:45 PM CDT [facility] BACTERIA (U) 2+ /HPF 03/16/2019 12:45 PM CDT [facility] MUCUS PRESENT 03/16/2019 12:45 PM CDT [facility] OTHER CASTS (U) HYALINE /LPF 9 12:45 PM CDT [facility] Comment:5-10 URINE SPECIMEN OBTAINED BY CLEAN CATCH PROCEDURE / Unknown 03/16/2019 9:58 AM CDT us Mu Alba III, MD URINE ORDERABLES Final R esult [facility] [address] [place] [address], * CYTOLOGY GENERIC (03/16/2019 12:00 AM CDT) CYTOLOGY OTHER [facility] ? Department of Laboratory Medicine ?[address] ?[place] [address] ? , extension [phone] ? Pathology Report ? Non-gynecologic Cytology Report Name: BRENDA WILSON ? Specimen #: [id number] Age: 6 1935 (Age: 84) ?Location: [facility] Sex: F ?Procedure Date: 03/16/2019 Hospital #: [id number] ?Date Received: 03/17/2019 Date Reported: 03/18/2019 Provider: MU ALBA III ?CASA HADLEY Source: URINE, VOIDED Clinical History: Microscopic hematuria Gross Description: SPECIMEN RECEIVED: ? 50 cc's of yellow fluid ? SLIDES PREPARED: ?1 ThinPrep ?STAINS: ? Papanicolaou FINAL DIAGNOSIS: URINE, VOIDED: ? - SATISFACTORY FOR EVALUATION. ? - NEGATIVE FOR HIGH-GRADE UROTHELIAL CARCINOMA. Electronically Signed Out ? Gregory Penny M.D. [facility] 03/16/2019 03/17/2019 1:3 8 PM CDT Comment:URINE, VOIDED us Mu Alba III, MD PATHOLOGY/CYTOLOGY ORDER CHAPO Final Result [facility] [address] [place] [address], [place] [phone] [id number] documented in this encounter Visit Diagnoses Diagnosis Microscopic hematuria- Primary documented in this encounter Care Teams Beef Tagger Relationship Specialty Start Date End Date Casa Hadley MD [address] [place] [address] PCP - General INTERNAL MEDICINE 03/16/19 documented as of this encounter
--- OUTSIDE RECORDS SUMMARY | 2024-09-08 21:09 | XMS_ITS | Encounter Summary ---
Author Organization [facility] Address [facility] [facility] [place] [address] [place] [address] Care Team Providers Care Senior Mainframe Developer Name Role Phone Casa Encarnacion MD Primary Care Provider [phone] Reason for Visit * Auth/Cert Specialty Diagnoses / Procedures Referred By Rosalva t Referred To Contact Diagnoses h25.9 Procedures REMV CATARACT EXTRACAP,INSERT LENS EXTRACTION CATARACT left EYE WITH LENS IMPLANT Referral ID Status Reason Start Date Expiration Date Visits Re quested Visits Authorized [id number] 1 1 Encounter Details Date Type Department Care Team (Late st Contact Info) Description 01/21/2024 11:05 AM CDT - 01/21/2024 11:[address] [facility] [address] [place] [address] Catherine Newman MD [facility] [place] [address] EXTRACTION CATARACT left EYE WITH LENS IMPLANT [...] Care Everywhere. * Cataract Removal Discharge Instructions (Mauritanian) * Moderate Sedation in Adults Discharge Instructions (Mauritanian) documented in this encounter Medications at Time [...] during recuperation were discussed with the patient/family/personal access representative. Reasonable alternatives to the patient's proposed procedure/surgery including benefits, risks, and side effects related to the alternatives and the risks related to not receiving the proposed care were also discussed with the patient/family/personal access representative. Questions were answered and the patient/family/personal access representative verbalized understanding and desires to proceed. Source Note - [facility] - 01/21/2024 12:00 AM CDT documented in this encounter OR Notes * Brief Op Note - Catherine Newman MD - 01/21/2024 10:48 AM CDT Patient: Luanne Gotti 1935 [id number] Preoperative Diagnosis: Visually significant cataract Postoperative Diagnosis: Visually significant cataract Procedure: Cataract Extraction with Intraocular Lens Placement, LEFT Eye Surgeon: Catherine Newman MD End Finder Forming Department: none Anesthesia: Monitor Anesthesia Care Implant: Implant Name Type Inv. Item Serial No. Motel Front Desk Attendant Lot No. LRB No. Used Action IOL TECNIS SIMPLICITY DCB00 - [id number] Lens IOL TECNIS SIMPLICITY DCB00 [id number] [employer] VISION CARE DCB00 Left 1 Implanted Specimen: [...] RN) documented in this encounter Care Teams Senior Mainframe Developer Relationship Specialty Start Date End Date Casa Encarnacion MD [address] [place] [address] PCP - General INTERNAL MEDICINE 03/16/19 documented as of this encounter
--- OUTSIDE RECORDS SUMMARY | 2024-09-08 21:09 | XMS_ITS | Encounter Summary ---
Author Organization [facility] Address [address] [place] [address]. [place] [address] [place] [address] Care Team Providers Care Research Biologist Name Role Phone Casa Encarnacion MD Primary Care Provider [phone] Encounter Details Date Type Department Care Team (Late st Contact Info) Description 11/13/2023 Scan [facility] [address] [place] [address] Scanned[facility] Social History Tobacco Use [...] on filedocumented in this encounter Care Teams Research Biologist Relationship Specialty Start Date End Date Casa Encarnacion MD [address] [place] [address] PCP - General INTERNAL MEDICINE 03/16/19 documented as of this encounter
--- OUTSIDE RECORDS SUMMARY | 2024-09-08 21:09 | XMS_ITS | Encounter Summary ---
Author Organization [facility] Address [address] [place] [address]. [place] [address] [place] [address] Care Team Providers Care Sales Representative Groceries Name Role Phone Unavailable Primary Care Provider Unavailabl e Encounter Details Date Type Department Care Team (Late st Contact Info) Description 12/21/2003 Abstract SFL CONVERSION [address] [place] [address] , Generic Conversion, Social History [...]
--- OUTSIDE RECORDS SUMMARY | 2024-09-08 21:09 | XMS_ITS | Encounter Summary ---
Author Organization [facility] Address [facility] [place] [address] [place] [address] Care Team Providers Care Glazier Artist Name Role Phone Casa Encarnacion MD Primary Care Provider [phone] Encounter Details Date Type Department Care Team [...] on filedocumented in this encounter Care Teams Glazier Artist Relationship Specialty Start Date End Date Casa Encarnacion MD [address] [place] [address] PCP - General INTERNAL MEDICINE 03/16/19 documented as of this encounter
--- OUTSIDE RECORDS SUMMARY | 2024-09-08 21:09 | XMS_ITS | Encounter Summary ---
Author Organization [facility] Address [address] [place] [address]. [place] [address] [place] [address] Care Team Providers Care Yield Engineer Name Role Phone Casa Encarnacion MD Primary Care Provider [phone] Reason for Visit * Auth/Cert Specialty Diagnoses / Procedures Referred By Rosalva t Referred To Contact Diagnoses H25.9 Procedures REMV CATARACT EXTRACAP,INSERT LENS EXTRACTION CATARACT right EYE WITH LENS IMPLANT Referral ID Status Reason Start Date Expiration Date Visits Re quested Visits Authorized [id number] 1 1 Encounter Details Date Type Department Care Team (Latest Contact Info) Description 12/24/2023 10:59 AM CDT - 12/24/2023 12:45 PM [address] Hospital En[facility] [place] [address] Catherine Newman MD [address] [place], [place] [id number] Discharge Disposition: Home or Self Care (Routine [...] during recuperation were discussed with the patient/family/personal branch sales and service representative. Reasonable alternatives to the patient's proposed procedure/surgery including benefits, risks, and sideeffects related to the alternatives and the risks related to not receiving the proposed care were also discussed with the patient/family/personal branch sales and service representative. Questions were answered and the patient/family/personal branch sales and service representative verbalized understanding and desires to proceed. Source Note - [facility] - 12/24/2023 12:00 AM CDT documented in this encounter OR Notes * Brief Op Note - Catherine Newman MD - 12/24/2023 12:19 PM CDT Patient: Luanne Gotti 1935 [id number] Preoperative Diagnosis: Visually significant cataract Postoperative Diagnosis: Visually significant cataract Procedure: Cataract Extraction with Intraocular Lens Placement, RIGHT Eye Surgeon: Catherine Newman MD [employer] Limousine: none Anesthesia: Monitor Anesthesia Care Implant: Implant Name Type Inv. Item Serial No. Welt Rander Lot No. LRB No. Used Action TECNIS 1-PIECE IOL [id number] [employer] [facility] [id number] Right 1 Implanted Specimen: none Estimated Blood [...] RN) documented in this encounter Care Teams Yield Engineer Relationship Specialty Start Date End Date Casa Encarnacion MD [address] [place] [address] PCP - General INTERNAL MEDICINE 03/16/19 documented as of this encounter
--- OUTSIDE RECORDS SUMMARY | 2024-09-08 21:09 | XMS_ITS | Encounter Summary ---
Author Organization [facility] Address [address] [place] [address]. [place] [address] [place] [address] Care Team Providers Care Real Estate Account Executive Name Role Phone Casa Encarnacion MD Primary Care Provider [phone] Reason for Visit * Auth/Cert Specialty Diagnoses / Procedures Referred By Rosalva t Referred To Contact Diagnoses h25.9 Procedures REMV CATARACT EXTRACAP,INSERT LENS EXTRACTION CATARACT left EYE WITH LENS IMPLANT Referral ID Status Reason Start Date Expiration Date Visits Re quested Visits Authorized [id number] 1 1 Encounter Details Date Type Department Care Team (Late st Contact Info) Description 01/21/2024 10:29 AM CDT Anesthesia Event [facility] [address] [facility] [place] [address] Leoncio Hinds CRNA [address] [place], [place] [id number] Anesthesia Record Procedure Summary Procedure Name Responsible Anesthesiologist Anesthesia Start Time Anesthesia Stop Time EXTRACTION CATARACT left EYE WITH LENS IMPLANT (Left: Eye) 01/21/24 1029 01/21/24 1051 Events Date Time Event Comment 01/21/2024 1025 1025 AN PRINTING PRESS MACHINIST Prepped 1025 AN Anesthesia Prepped 1029 An [...] mg documented in this encounter Care Teams Real Estate Account Executive Relationship Specialty Start Date End Date Casa Encarnacion MD [address] [place] [address] PCP - General INTERNAL MEDICINE 03/16/19 documented as of this encounter
--- OUTSIDE RECORDS SUMMARY | 2024-09-08 21:09 | XMS_ITS | Encounter Summary ---
Author Organization [facility] Address [address] [place] [address]. [place], [place] [id number] [place] [address] Care Team Providers Care Machine Cloth Measurer Name Role Phone Casa Encarnacion MD Primary Care Provider [phone] Reason for Visit * Reason Onset Date Comments Results 03/15/2020 Encounter Details Date Type Department Care Team (Late st Contact Info) Description 03/15/2020 Telephone [facility] [address] [place] [address] Julien Yoo MD [address] 5th [place] [address] Results Social History Tobacco Use [...] on filedocumented in this encounter Care Teams Machine Cloth Measurer Relationship Specialty Start Date End Date Casa Encarnacion MD [address] [place] [address] PCP - General INTERNAL MEDICINE 03/16/19 documented as of this encounter
--- OUTSIDE RECORDS SUMMARY | 2024-09-08 21:09 | XMS_ITS | Encounter Summary ---
Author Organization [facility] Address [address] [place] [address]. [place] [address] [place] [address] Care Team Providers Care Audio Narrator Name Role Phone Casa Encarnacion MD Primary Care Provider [phone] Reason for Visit * Auth/Cert Specialty Diagnoses / Procedures Referred By Rosalva t Referred To Contact Diagnoses h25.9 Procedures REMV CATARACT EXTRACAP,INSERT LENS EXTRACTION CATARACT left EYE WITH LENS IMPLANT Referral ID Status Reason Start Date Expiration Date Visits Re quested Visits Authorized [id number] 1 1 Encounter Details Date Type Department Care Team (Latest Contact Info) Description 01/21/2024 9:52 AM CDT - 01/21/2024 11:20 AM CDT Hospital Encounter [place] [address] [place] [address] Catherine Newman MD [address] [place], [place] [id number] Discharge Disposition: Home or Self Care (Routine [...] Care Everywhere. * Cataract Removal Discharge Instructions (Canadian) * Moderate Sedation in Adults Discharge Instructions (Canadian) documented in this encounter Medications at Time [...] during recuperation were discussed with the patient/family/personal business services representative. Reasonable alternatives to the patient's proposed procedure/surgery including benefits, risks, and side effects related to the alternatives and the risks related to not receiving the proposed care were also discussed with the patient/family/personal business services representative. Questions were answered and the patient/family/personal business services representative verbalized understanding and desires to proceed. Source Note - Scanned, [facility] - 01/21/2024 12:00 AM CDT documented in this encounter OR Notes * Brief Op Note - Catherine Newman MD - 01/21/2024 10:48 AM CDT Patient: Luanne Gotti 1935 [id number] Preoperative Diagnosis: Visually significant cataract Postoperative Diagnosis: Visually significant cataract Procedure: Cataract Extraction with Intraocular Lens Placement, LEFT Eye Surgeon: Catherine Newman MD [employer] Incident Responder: none Anesthesia: Monitor Anesthesia Care Implant: Implant Name Type Inv. Item Serial No. Sliver Lap Machine Tender Lot No. LRB No. Used Action IOL TECNIS SIMPLICITY DCB00 - [id number] Lens IOL TECNIS SIMPLICITY DCB00 [id number] [employer] CARE DCB00 Left 1 Implanted Specimen: none [...] RN) documented in this encounter Care Teams Audio Narrator Relationship Specialty Start Date End Date Casa Encarnacion MD [address] [place] [address] PCP - General INTERNAL MEDICINE 03/16/19 documented as of this encounter
--- OUTSIDE RECORDS SUMMARY | 2024-09-08 21:10 | XMS_ITS | Encounter Summary ---
Author Organization [facility] Address [address] [place] [address]. [place] [address] [place] [address] Care Team Providers Care Machine Rigger Name Role Phone Unavailable Primary Care Provider Unavailabl e Encounter Details Date Type Department Care Team (Late st Contact Info) Description 06/08/1999 Abstract [facility] CONVERSION [address] [place] [address] , Generic Conversion, Social History [...]
--- OUTSIDE RECORDS SUMMARY | 2024-09-08 21:10 | XMS_ITS | Encounter Summary ---
Author Organization [facility] Address [address] [place] [address]. [place] [address] [place] [address] Care Team Providers Care Water Quality Assistant Name Role Phone Unavailable Primary Care Provider Unavailabl e Encounter Details Date Type Department Care Team (Late st Contact Info) Description 06/22/1996 Abstract [facility] [address] [place] [address] , Generic Conversion, Social History [...]
--- OUTSIDE RECORDS SUMMARY | 2024-09-08 21:10 | XMS_ITS | Encounter Summary ---
Author Organization [facility] Address [address] [place] [address]. [place] [address] [place] [address] Care Team Providers Care Traveling Buyer Name Role Phone Unavailable Primary Care Provider Unavailabl e Encounter Details Date Type Department Care Team (Late st Contact Info) Description 10/19/2001 Abstract [facility] [address] [place] [address] , Generic Conversion, Social History [...]
--- OUTSIDE RECORDS SUMMARY | 2024-09-08 21:10 | XMS_ITS | Encounter Summary ---
Author Organization [facility] Address [address] [place] [address]. [place] [address] [place] [address] Care Team Providers Care Batter Scaler Name Role Phone Unavailable Primary Care Provider Unavailabl e Encounter Details Date Type Department Care Team (Late st Contact Info) Description 10/08/2000 Abstract [facility] CONVERSION [address] [place] [address] , Generic Conversion, Social History [...]
--- OUTSIDE RECORDS SUMMARY | 2024-09-08 21:10 | XMS_ITS | Encounter Summary ---
Author Organization [facility] Address [address] [place] [address]. [place] [address] [place] [address] Care Team Providers Care Mercantile Reporter Name Role Phone Unavailable Primary Care Provider Unavailabl e Encounter Details Date Type Department Care Team (Late st Contact Info) Description 01/16/2000 Abstract [facility] [address] [place] [address] , Generic Conversion, Social History [...]
--- OUTSIDE RECORDS SUMMARY | 2024-09-08 21:10 | XMS_ITS | Encounter Summary ---
Author Organization [facility] Address [address] [place] [address]. [place] [address] [place] [address] Care Team Providers Care City Bailiff Name Role Phone Unavailable Primary Care Provider Unavailabl e Encounter Details Date Type Department Care Team (Late st Contact Info) Description 06/22/1999 Abstract [facility] [address] [place] [address] , Generic Conversion, Social History [...]
--- OUTSIDE RECORDS SUMMARY | 2024-09-08 21:10 | XMS_ITS | Encounter Summary ---
Author Organization [facility] Address [address] [place] [address]. [place] [address] [place] [address] Care Team Providers Care Systems Integration Engineer Name Role Phone Unavailable Primary Care Provider Unavailabl e Encounter Details Date Type Department Care Team (Late st Contact Info) Description 12/28/1996 Abstract [facility] CONVERSION [address] [place] [address] , Generic Conversion, Social History [...]
--- OUTSIDE RECORDS SUMMARY | 2024-09-08 21:10 | XMS_ITS | Encounter Summary ---
Author Organization [facility] Address [address] [place] [address]. [place] [address] [place] [address] Care Team Providers Care Vehicle Delivery Worker Name Role Phone Unavailable Primary Care Provider Unavailabl e Encounter Details Date Type Department Care Team (Late st Contact Info) Description 04/07/1995 Abstract [facility] CONVERSION [address] [place] [address] , Generic Conversion, Social History [...]
--- OUTSIDE RECORDS SUMMARY | 2024-09-08 21:12 | XMS_ITS | Encounter Summary ---
Author Organization [facility] Address [address] [place] [address] Care Team Providers Care Wind Instrument Repairer Name Role Phone Casa Encarnacion MD Primary Care Provider + Reason for Visit * Reason Onset Date Comments Medication Problem 11/07/2014 Encounter Details Date Type Department Care Team (Late st Contact Info) Description 11/07/2014 Telephone [facility] HIGH WIRE ARTIST - [facility] [address] [facility], [address] [place] [address] Didi Roberto MD [address] [place] [address] Medication Problem Social History Tobacco [...] - 11/07/2014 2:41 PM CST Pt notified. ER OFF * Telephone Encounter - Didi Roberto MD - 11/07/2014 12:10 PM CST Got notification from pharmacy that Atarax is considered high risk and may not be paid for. Will switch to Zyrtec. Please notify pt. I will send the new rx to pharmacy now. Thanks! ER OFF documented in this encounter Plan of Treatment Not on file documented as of this encounter Visit Diagnoses Diagnosis Vulvitis- Primary Vaginitis and vulvovaginitis, unspecified documented in this encounter Care Teams Wind Instrument Repairer Relationship Specialty Start Date End Date Casa Encarnacion MD [address] [place] [phone] PCP - General Internal Medicine 10/12/14 documented as of this encounter
--- OUTSIDE RECORDS SUMMARY | 2024-09-08 21:12 | XMS_ITS | Encounter Summary ---
Author Organization [facility] Address [address] [place] [address] Care Team Providers Care Wax Cutter Name Role Phone Casa Encarnacion MD Primary Care Provider + Reason for Visit * Reason Onset Date Comments Other 01/26/2015 Encounter Details Date Type Department Care Team (Late st Contact Info) Description 01/26/2015 Telephone [facility] DONOR SUPPORT TECHNICIAN - [facility] [address] [facility] [place] [address] Didi Roberto MD [address] [place] [address] Other Social History Tobacco Use [...] on filedocumented in this encounter Care Teams Wax Cutter Relationship Specialty Start Date End Date Casa Encarnacion MD [address] [place] [address] PCP - General Internal Medicine 10/12/14 documented as of this encounter
--- OUTSIDE RECORDS SUMMARY | 2024-09-08 21:12 | XMS_ITS | Encounter Summary ---
Author Organization [facility] Address [address] [place] [address] Care Team Providers Care Surveillance Officer Name Role Phone Casa Encarnacion MD Primary Care Provider + Reason for Visit * Reason Comments Follow Up vulvar burning Encounter Details Date Type Department Care Team (Late st Contact Info) Description 11/30/2014 1:45 PM CDT Office Visit [facility] DIRECTOR PRINT - [facility] [address] [facility], [address] [place] [address] Didi Dominguez MD [address] [place] [address] [address] [place] [address] Vulvar burning (Primary Dx) Social [...] GY - GENERAL ORDERABLES Performing Organization Address City/State/[facility] Co de Phone Number NON [facility] documented in this encounter Visit Diagnoses Diagnosis Vulvar burning- Primary Unspecified symptom associated with female genital organs documented in this encounter Care Teams Surveillance Officer Relationship Specialty Start Date End Date Casa Encarnacion MD [address] [place] [phone] PCP - General Internal Medicine 10/12/14 documented as of this encounter
--- OUTSIDE RECORDS SUMMARY | 2024-09-08 21:12 | XMS_ITS | Encounter Summary ---
Author Organization [facility] Address [address] [place] [address] Care Team Providers Care Solar Sales Representative And Assessor Name Role Phone Casa Encarnacion MD Primary Care Provider + Reason for Visit * Reason Onset Date Comments Question 10/17/2015 UTI Encounter Details Date Type Department Care Team (Late st Contact Info) Description 10/17/2015 Telephone [facility] CORE PLACER - [facility] [address] [facility] [place] [address] Didi Roberto MD [address] [place] [address] Question (UTI) Social History Tobacco [...] MD - 10/17/2015 11:51 AM CST Agree. SHAKER * Telephone Encounter - Lydia Escamilla RN - 10/17/2015 11:10 AM CST Patient states burning got better after a couple days of Diflucan but now is back again. After discussion, patient states she is unable to get to a lab for UA. Advised her to go to her PCP who is in [place], [place]. Patient agreed she will do that. SHAKER documented in this encounter Plan of Treatment Not on file documented as of this encounter Visit Diagnoses Not on filedocumented in this encounter Care Teams Solar Sales Representative And Assessor Relationship Specialty Start Date End Date Casa Encarnacion MD [address] [place] [address] PCP - General Internal Medicine 10/12/14 documented as of this encounter
--- OUTSIDE RECORDS SUMMARY | 2024-09-08 21:12 | XMS_ITS | Encounter Summary ---
Author Organization [facility] Address [address] [place] [address] Care Team Providers Care Manager Dairy Name Role Phone Casa Encarnacion MD Primary Care Provider + Reason for Visit * Reason Onset Date Comments Results 05/30/2015 Encounter Details Date Type Department Care Team (Late st Contact Info) Description 05/30/2015 Telephone [facility] TANNER ROTARY DRUM CONTINUOUS PROCESS - [facility] [address] [facility], [address] [place] [address] Demetrice Márquez RN Results Social [...] on filedocumented in this encounter Care Teams Manager Dairy Relationship Specialty Start Date End Date Casa Encarnacion MD [address] [place] [phone] PCP - General Internal Medicine 10/12/14 documented as of this encounter
--- OUTSIDE RECORDS SUMMARY | 2024-09-08 21:12 | XMS_ITS | Encounter Summary ---
Author Organization [facility] Address [address] [place] [address] Care Team Providers Care Solar Resource Assessor Name Role Phone Casa Encarnacion MD Primary Care Provider + Reason for Visit * Reason Onset Date Comments Results 11/14/2015 culture neg Encounter Details Date Type Department Care Team (Late st Contact Info) Description 11/14/2015 Telephone [facility] TEAM SUPERVISOR - [facility] [address] [facility] [place] [address] Didi Estevez MD [address] [place] [address] Results (culture neg) Social History [...] Roberto MD sent at 11/13/2015 11:17 PM FUEL OIL TRUCK DRIVER ----- Please let pt know that she [...] the recommendations. LMOR stating the above information OIL TRUCK DRIVER documented in this encounter Plan of Treatment Not on file documented as of this encounter Visit Diagnoses Not on filedocumented in this encounter Care Teams Solar Resource Assessor Relationship Specialty Start Date End Date Casa Encarnacion MD [address] [place] [phone] PCP - General Internal Medicine 10/12/14 documented as of this encounter
--- OUTSIDE RECORDS SUMMARY | 2024-09-08 21:12 | XMS_ITS | Encounter Summary ---
Author Organization [facility] Address [address] [place] [address] Care Team Providers Care Conference Assistant Name Role Phone Casa Encarnacion MD Primary Care Provider + Encounter Details Date Type Department Care Team (Late st Contact Info) Description 11/13/2015 Orders Only [facility] THEATRICAL TROUPER - [facility] [address] [facility] [place] [address] Didi Burleson MD [address] [place] [address] Acute vulvitis; Yeast infection of [...] MISCELLANEOUS LAB TEST Routine 6 10:00 AM EXCEPTIONAL NEEDS TEACHER Acute vulvitis Yeast infection of the vagina documented in this encounter Results * MISCELLANEOUS LAB TEST (11/08/2015 10:00 AM EXCEPTIONAL NEEDS TEACHER) MISCELLANEOUS LAB TEST NON [facility] SPECIMEN TYPE NON [facility] MISCELLANEOUS LAB TEST NON [facility] Specimen of unknown material (specimen) 11/08/2015 10:00 AM EXCEPTIONAL NEEDS TEACHER Didi Roberto MD CHEMISTRY ORDERABLES NON [facility] documented in this encounter Visit Diagnoses Diagnosis Acute vulvitis Vaginitis and vulvovaginitis, unspecified Yeast infection of the vagina Candidiasis of vulva and vagina documented in this encounter Care Teams Conference Assistant Relationship Specialty Start Date End Date Casa Encarnacion MD [address] [place] [phone] PCP - General Internal Medicine 10/12/14 documented as of this encounter
--- OUTSIDE RECORDS SUMMARY | 2024-09-08 21:12 | XMS_ITS | Encounter Summary ---
Author Organization [facility] Address [address] [place] [address] Care Team Providers Care Security Systems Engineer Name Role Phone Casa Encarnacion MD Primary Care Provider + Reason for Visit * Reason Onset Date Comments Vaginitis 11/21/2015 Encounter Details Date Type Department Care Team (Late st Contact Info) Description 11/21/2015 Telephone [facility] CLINICAL BIOCHEMICAL GENETICIST - [facility] [address] [facility], [address] [place] [address] Didi Roberto MD [address] [place] [phone] Vaginitis Social History Tobacco Use Types Packs/Day [...] Patient advised to get second opinion at [facility] with Dr Leonard, phone # given. She is hesitant about this. Advised her Dr. Lozano has exhausted what she can do for her. Rx sent for Diflucan. * Telephone Encounter - Didi Roberto MD - 11/21/2015 3:55 PM CDT I am not sure what else to offer pt. She should try for a second opinion at [facility] with Dr. Leonard, . Until [...] on filedocumented in this encounter Care Teams Security Systems Engineer Relationship Specialty Start Date End Date Casa Encarnacion MD [address] [place] [phone] PCP - General Internal Medicine 10/12/14 documented as of this encounter
--- OUTSIDE RECORDS SUMMARY | 2024-09-08 21:12 | XMS_ITS | Encounter Summary ---
Author Organization [facility] Address [address] [place] [address] Care Team Providers Care Teletypewriter Operator Name Role Phone Casa Encarnacion MD Primary Care Provider + Encounter Details Date Type Department Care Team (Late st Contact Info) Description 12/05/2014 Orders Only [facility] GYPSUM BLOCK SETTER - [facility] [address] [facility], [address] [place] [address] Didi Roberto MD [address] [place] [address] Vulvar burning Social History Tobacco [...] organs documented in this encounter Care Teams Teletypewriter Operator Relationship Specialty Start Date End Date Casa Encarnacion MD [address] [place] [phone] PCP - General Internal Medicine 10/12/14 documented as of this encounter
--- OUTSIDE RECORDS SUMMARY | 2024-09-08 21:12 | XMS_ITS | Encounter Summary ---
Author Organization [facility] Address [address] [place] [address] Care Team Providers Care Supervisor Heavy Equipment Name Role Phone Casa Encarnacion MD Primary Care Provider + Reason for Visit * Reason Comments Vaginal Problem burning Encounter Details Date Type Department Care Team (Late st Contact Info) Description 05/24/2015 2:00 PM CDT Office Visit [facility] LATEXER - [facility] [address] [facility], [address] [place] [address] Didi Dominguez MD [address] [place] [address] [address] [place] [phone] Vulvitis (Primary Dx); Vaginal atrophy; Vulvar atrophy; [...] unspecified documented in this encounter Care Teams Supervisor Heavy Equipment Relationship Specialty Start Date End Date Casa Encarnacion MD [address] [place] [phone] PCP - General Internal Medicine 10/12/14 documented as of this encounter
--- OUTSIDE RECORDS SUMMARY | 2024-09-08 21:12 | XMS_ITS | Encounter Summary ---
Author Organization [facility] Address [address] [place] [address] Care Team Providers Care Chief Wheelage Clerk Name Role Phone Casa Encarnacion MD Primary Care Provider + Reason for Visit * Reason Onset Date Comments Vaginal Pain 05/10/2015 Encounter Details Date Type Department Care Team (Late st Contact Info) Description 05/10/2015 Telephone [facility] PRODUCT SAFETY TEST ENGINEER - [facility] [address] [facility], [address] [place] [address] Demetrice Márquez RN Vaginal Pain [...] results. Thanks! * Telephone Encounter - Demetrice Cabral RN - 05/10/2015 11:59 AM CDT Pt called stating her PCP prescribed Diflucan on 04/15 and the symptoms are back. (burning vagina) She says she is following all other suggestions with the creams she currently has. documented in this encounter Plan of Treatment Not on file documented as of this encounter Visit Diagnoses Not on filedocumented in this encounter Care Teams Chief Wheelage Clerk Relationship Specialty Start Date End Date Casa Encarnacion MD [address] [place] [phone] PCP - General Internal Medicine 10/12/14 documented as of this encounter
--- OUTSIDE RECORDS SUMMARY | 2024-09-08 21:12 | XMS_ITS | Encounter Summary ---
Author Organization [facility] Address [address] [place] [address] Care Team Providers Care Laborer Mine Name Role Phone Casa Encarnacion MD Primary Care Provider + Encounter Details Date Type Department Care Team (Late st Contact Info) Description 12/26/2015 Abstract [facility] LICENSED TAX CONSULTANT - [facility] [address] [facility], [address] [place] [address] Didi Roberto MD [address] [place] [phone] Social History Tobacco Use Types Packs/Day Years [...] on filedocumented in this encounter Care Teams Laborer Mine Relationship Specialty Start Date End Date Casa Encarnacion MD [address] [place] [address] PCP - General Internal Medicine 10/12/14 documented as of this encounter
--- OUTSIDE RECORDS SUMMARY | 2024-09-08 21:12 | XMS_ITS | Encounter Summary ---
Author Organization [facility] Address [address] [place] [address] Care Team Providers Care Waste Removalist Name Role Phone Casa Encarnacion MD Primary Care Provider + Reason for Visit * Reason Onset Date Comments Medication Question 10/10/2015 Encounter Details Date Type Department Care Team (Late st Contact Info) Description 10/10/2015 Telephone [facility] CHIEF STEWARD/STEWARDESS - [facility] [address] [facility], [address] [place] [address] Didi Roberto MD [address] [place] [address] Medication Question Social History Tobacco [...] 4:55 PM CST Patient advised. Diflucan sent NEER OF SYSTEM DEVELOPMENT * Telephone Encounter - Didi Roberto MD - 10/10/2015 4:33 PM ENGINEER OF SYSTEM DEVELOPMENT If it is external irritation, then I can give her one Diflucan 150. If she is not better, I do needto see her. Give it about 3-5 days to work, though. NEER OF SYSTEM DEVELOPMENT * Telephone Encounter - Lydia Escamilla RN [...] not treat the symptoms she is having. NEER OF SYSTEM DEVELOPMENT documented in this encounter Plan of Treatment Not on file documented as of this encounter Visit Diagnoses Diagnosis Yeast infection- Primary Other and unspecified mycoses documented in this encounter Care Teams Waste Removalist Relationship Specialty Start Date End Date Casa Encarnacion MD [address] [place] [phone] PCP - General Internal Medicine 10/12/14 documented as of this encounter
--- OUTSIDE RECORDS SUMMARY | 2024-09-08 21:12 | XMS_ITS | Encounter Summary ---
Author Organization [facility] Address [address] [place] [address] Care Team Providers Care Rehabilitation Counselor Name Role Phone Casa Encarnacion MD Primary Care Provider + Reason for Visit * Reason Onset Date Comments Question 05/22/2015 Encounter Details Date Type Department Care Team (Late st Contact Info) Description 05/22/2015 Telephone [facility] CUSTOMS COMPLIANCE MANAGER - [facility] [address] [facility] [place] [address] Demetrice Márquez, RN Question Social [...] on filedocumented in this encounter Care Teams Rehabilitation Counselor Relationship Specialty Start Date End Date Casa Encarnacion MD [address] [place] [phone] PCP - General Internal Medicine 10/12/14 documented as of this encounter
--- OUTSIDE RECORDS SUMMARY | 2024-09-08 21:12 | XMS_ITS | Encounter Summary ---
Author Organization [facility] Address [address] [place] [address] Care Team Providers Care Selector Packer Name Role Phone Casa Encarnacion MD Primary Care Provider + Reason for Visit * Reason Onset Date Comments Medication Refill 08/07/2015 Encounter Details Date Type Department Care Team (Late st Contact Info) Description 08/07/2015 Telephone [facility] CONTACT CENTRE SUPERVISOR - [facility] [address] [facility], [address] [place] [address] Didi Roberto MD [address] [place] [address] Medication Refill Social History Tobacco Use Types [...] vulva documented in this encounter Care Teams Selector Packer Relationship Specialty Start Date End Date Casa Encarnacion MD [address] [place] [phone] PCP - General Internal Medicine 10/12/14 documented as of this encounter
--- OUTSIDE RECORDS SUMMARY | 2024-09-08 21:12 | XMS_ITS | Encounter Summary ---
Author Organization [facility] Address [address] [place] [address] Care Team Providers Care Technical Writer Name Role Phone Casa Encarnacion MD Primary Care Provider + Reason for Visit * Reason Comments Follow Up vulvar itching and b urning; recurrent yeast Encounter Details Date Type Department Care Team (Late st Contact Info) Description 03/01/2015 1:15 PM CDT Office Visit [facility] BALL WARPER TENDER - [facility] [address] [facility], [address] [place] [address] Didi Dominguez MD [address] [place] [address] [address] [place] [address] Vulvitis (Primary Dx) Social History [...] METHOD AEROBIC CULTURE 03/30/2015 2:15 PM CDT [facility] Genital (Vaginal) Collection / Unknown 03/01/2015 3:41 PM CDT 03/01/2015 9:07 PM CDT Didi Roberto MD MICROBIOLO GY - GENERAL ORDERABLES [facility] CLIA# [id number] [address] [place] [id number] documented in this encounter Visit Diagnoses Diagnosis Vulvitis- Primary Vaginitis and vulvovaginitis, unspecified documented in this encounter Care Teams Technical Writer Relationship Specialty Start Date End Date Casa Encarnacion MD [address] [place] [address] PCP - General Internal Medicine 10/12/14 documented as of this encounter
--- OUTSIDE RECORDS SUMMARY | 2024-09-08 21:12 | XMS_ITS | Encounter Summary ---
Author Organization [facility] Address [address] [place] [address] Care Team Providers Care County Adviser Name Role Phone Casa Encarnacion MD Primary Care Provider + Encounter Details Date Type Department Care Team (Late st Contact Info) Description 05/29/2015 Orders Only [facility] CUSTOMER SERVICE SALES ASSOCIATE - [facility] [address] [facility], [address] [place] [address] Didi Roberto MD [address] [place] [address] Vulvitis Social History Tobacco Use [...] CDT Didi Roberto MD CHEMISTRY ORDERABLES NON [facility] documented in this encounter Visit Diagnoses Diagnosis Vulvitis Vaginitis and vulvovaginitis, unspecified documented in this encounter Care Teams County Adviser Relationship Specialty Start Date End Date Casa Encarnacion MD [address] [place] [phone] PCP - General Internal Medicine 10/12/14 documented as of this encounter
--- OUTSIDE RECORDS SUMMARY | 2024-09-08 21:12 | XMS_ITS | Encounter Summary ---
Author Organization [facility] Address [address] [place] [address] Care Team Providers Care Fire Control Technician Name Role Phone Casa Encarnacion MD Primary Care Provider + Reason for Visit * Reason Onset Date Comments Question 12/07/2015 Encounter Details Date Type Department Care Team (Late st Contact Info) Description 12/07/2015 Telephone [facility] BLASTING MACHINE OPERATOR - [facility] [address] [facility], [address] [place] [address] Didi Roberto MD [address] [place] [address] Question Social History Tobacco Use [...] filedocumented in this encounter Care Teams Fire Control Technician Relationship Specialty Start Date End Date Casa Encarnacion MD [address] [place] [phone] PCP - General Internal Medicine 10/12/14 documented as of this encounter
--- OUTSIDE RECORDS SUMMARY | 2024-09-08 21:12 | XMS_ITS | Encounter Summary ---
Author Organization [facility] Address [address] [place] [address] Care Team Providers Care Foster Care Social Worker Name Role Phone Casa Encarnacion MD Primary Care Provider + Reason for Visit * Reason Onset Date Comments Results 12/05/2014 Encounter Details Date Type Department Care Team (Late st Contact Info) Description 12/05/2014 Telephone [facility] SENIOR SOFTWARE SYSTEMS ENGINEER - [facility] [address] [facility], [address] [place] [address] Didi Roberto MD [address] [place] [address] Results Social History Tobacco Use [...] on filedocumented in this encounter Care Teams Foster Care Social Worker Relationship Specialty Start Date End Date Casa Encarnacion MD [address] [place] [phone] PCP - General Internal Medicine 10/12/14 documented as of this encounter
--- OUTSIDE RECORDS SUMMARY | 2024-09-08 21:12 | XMS_ITS | Encounter Summary ---
Author Organization [facility] Address [address] [place] [address] Care Team Providers Care Ballet Company Artistic Director Name Role Phone Casa Encarnacion MD Primary Care Provider + Reason for Visit * Reason Onset Date Comments Medication Question 11/13/2015 Encounter Details Date Type Department Care Team (Late st Contact Info) Description 11/13/2015 Telephone [facility] SECURITY GUARD DISPATCHER - [facility] [address] [facility], [address] [place] [address] Didi Roberto MD [address] [place] [address] Medication Question Social History Tobacco [...] her we will call with final cultureresults. WELD OPERATOR documented in this encounter Plan of Treatment Not on file documented as of this encounter Visit Diagnoses Not on filedocumented in this encounter Care Teams [employer] Artistic Director Relationship Specialty Start Date End Date Casa Encarnacion MD [address] [place] [address] PCP - General Internal Medicine 10/12/14 documented as of this encounter
--- OUTSIDE RECORDS SUMMARY | 2024-09-08 21:12 | XMS_ITS | Encounter Summary ---
Author Organization [facility] Address [address] [place] [address] Care Team Providers Care Bonderizer Name Role Phone Casa Encarnacion MD Primary Care Provider + Reason for Visit * Reason Onset Date Comments Vaginal Pain 09/20/2015 Encounter Details Date Type Department Care Team (Late st Contact Info) Description 09/20/2015 Telephone [facility] FORESTRY SUPERVISOR - [facility] [address] [facility], [address] [place] [address] Demetrice Márquez RN Vaginal Pain [...] AM CST Pt made aware, order placed. SIGNALMAN * Telephone Encounter - Didi Roberto MD - 09/20/2015 11:27 AM CST We can give her one dose, please. SIGNALMAN * Telephone Encounter - Demetrice Cabral RN - 09/20/2015 9:19 AM CST Pt called asking for Diflucan for vaginal burning. States she does have a small amt of whitish discharge as well. SIGNALMAN documented in this encounter Plan of Treatment Not on file documented as of this encounter Visit Diagnoses Diagnosis Yeast infection- Primary Other and unspecified mycoses documented in this encounter Care Teams Bonderizer Relationship Specialty Start Date End Date Casa Encarnacion MD [address] [place] [phone] PCP - General Internal Medicine 10/12/14 documented as of this encounter
--- OUTSIDE RECORDS SUMMARY | 2024-09-08 21:12 | XMS_ITS | Encounter Summary ---
Author Organization [facility] Address [address] [place] [address] Care Team Providers Care Worksite Wellness Practitioner Name Role Phone Casa Encarnacion MD Primary Care Provider + Reason for Visit * Reason Onset Date Comments Constipation 12/21/2014 Encounter Details Date Type Department Care Team (Late st Contact Info) Description 12/21/2014 Telephone [facility] ACETONE RECOVERY WORKER - [facility] [address] [facility], [address] [place] [address] Didi Roebrto MD [address] [place] [address] Constipation Social History Tobacco Use Types Packs/Day Years [...] Telephone Encounter - Sandra Yu RMA - 12/21/2014 2:09 PM CDT Pt has been informed, will try Miralax. If no relief she will contact PCP. * Telephone Encounter - Didi Roberto MD - 12/21/2014 1:59 PM CDT Constipation is not a common side effect of diflucan. She, however, should add fiber to her diet and try MiraLax or Colace for relief. If constipation is a change for her, should notify her PCP as well. Thanks! * Telephone Encounter - Sandra Yu RMA - 12/21/2014 12:10 PM CDT Pt is taking Diflucan. Has taken 3 doses starting on Friday12-05-14, has 3 more to take. States it is causing constipation. Has not tried any otc meds for the constipation. Please advise. documented in this encounter Plan of Treatment Not on file documented as of this encounter Visit Diagnoses Not on filedocumented in this encounter Care Teams Worksite Wellness Practitioner Relationship Specialty Start Date End Date Casa Encarnacion MD [address] [place] [phone] PCP - General Internal Medicine 10/12/14 documented as of this encounter
--- OUTSIDE RECORDS SUMMARY | 2024-09-08 21:12 | XMS_ITS | Encounter Summary ---
Author Organization [facility] Address [address] [place] [address] Care Team Providers Care Laboratory Asst Name Role Phone Casa Encarnacion MD Primary Care Provider + Reason for Visit * Reason Comments Follow Up vaginal burning Encounter Details Date Type Department Care Team (Late st Contact Info) Description 11/08/2015 3:30 PM RIVER PILOT Office Visit [facility] ELECTRICAL DESIGN ENGINEER - [facility] [address] [facility], [address] [place] [address] Didi Dominguez MD [address] [place] [phone] Acute vulvitis (Primary Dx); Yeast infection of [...] Comments Blood Pressure 140/82 11/08/2015 3:33 PM RIVER PILOT Pulse - - Temperature - - Respiratory Rate - - Oxygen Saturation - - Inhaled Oxygen Concentration - - Weight 59 kg (130 lb) 11/08/2015 3:33 PM RIVER PILOT Height 167.6 cm (5' 6 ) 11/08/2015 3:33 PM RIVER PILOT Body Mass Index 20.98 11/08/2015 3:33 PM RIVER PILOT documented in this encounter Progress Notes * [...] on: as stated above. Didi Roberto MD R PILOT documented in this encounter Plan of Treatment Not on file documented as of this encounter Procedures Procedure Name Priority Date/Time Associated Diagnosis Comments FUNGUS CULTURE, OTHER Routine 11/08/2015 4:26 PM RIVER PILOT Acute vulvitis Yeast infection of the vagina documented in this encounter Results * FUNGUS CULTURE, OTHER (11/08/2015 4:26 PM RIVER PILOT) CULTURE No fungus isolated. 12/05/2015 9:03 AM CDT [facility] [employer] [facility] Genital SPECIMEN FROM VAGINA / Unknown Collection / Unknown 11/08/2015 4:26 PM RIVER PILOT 11/08/2015 9:09 PM RIVER PILOT Didi Roberto MD MICROBIOLO GY - GENERAL ORDERABLES [facility] [employer] [id number] [address] [facility] [place] [place] [address] * MISCELLANEOUS LAB TEST (11/08/2015 10:00 AM RIVER PILOT) Pathologist [facility] MISCELLANEOUS LAB TEST NON [facility] SPECIMEN TYPE NON [facility] MISCELLANEOUS LAB TEST NON [facility] Specimen of unknown material (specimen) 11/08/2015 10:00 AM RIVER PILOT Didi Roberto MD CHEMISTRY ORDERABLES NON [facility] documented in this encounter Visit Diagnoses Diagnosis Acute vulvitis- Primary Vaginitis and vulvovaginitis, unspecified Yeast infection of the vagina Candidiasis of vulva and vagina documented in this encounter Care Teams Laboratory Asst Relationship Specialty Start Date End Date Casa Encarnacion MD [address] [place] [phone] PCP - General Internal Medicine 10/12/14 documented as of this encounter
--- OUTSIDE RECORDS SUMMARY | 2024-09-08 21:12 | XMS_ITS | Encounter Summary ---
Author Organization [facility] Address [address] [place] [address] Care Team Providers Care Geometry Professor Name Role Phone Casa Encarnacion MD Primary Care Provider + Reason for Visit * Reason Onset Date Comments Vaginal Itching 08/28/2015 Encounter Details Date Type Department Care Team (Late st Contact Info) Description 08/28/2015 Telephone [facility] POULTRY PICKING MACHINE TENDER - [facility] [address] [facility], [address] [place] [address] Demetrice Márquez RN Vaginal Itching [...] RN - 08/28/2015 5:03 PM CST yes UCT ASSEMBLER * Telephone Encounter - Didi Roberto MD - 08/28/2015 4:59 PM PRODUCT ASSEMBLER Ok, so, did she just call to let us know that she got diflucan from her PCP? UCT ASSEMBLER * Telephone Encounter - Demetrice Cabral RN - 08/28/2015 3:20 PM CST Pt was able to get a script from her PCP. UCT ASSEMBLER * Telephone Encounter - Demetrice Cabral RN - 08/28/2015 3:08 PM CST Pt called stating she has been following vulvar guidelines but is having itching/burning again. States Diflucan has helped in the past and is asking for one now. No discharge. UCT ASSEMBLER documented in this encounter Plan of Treatment Not on file documented as of this encounter Visit Diagnoses Not on filedocumented in this encounter Care Teams Geometry Professor Relationship Specialty Start Date End Date Casa Encarnacion MD [address] [place] [phone] PCP - General Internal Medicine 10/12/14 documented as of this encounter
--- OUTSIDE RECORDS SUMMARY | 2024-09-08 21:12 | XMS_ITS | Encounter Summary ---
Author Organization [facility] Address [address] [place] [address] Care Team Providers Care Customs Guard Name Role Phone Casa Encarnacion MD Primary Care Provider + Reason for Visit * Reason Onset Date Comments Results 12/05/2015 neg for yeast Encounter Details Date Type Department Care Team (Late st Contact Info) Description 12/05/2015 Telephone [facility] CITY LETTER CARRIER - [facility] [address] [facility], [address] [place] [address] Didi Estevez MD [address] [place] [address] [address] [place] [address] Results (neg for yeast) Social [...] try to see the Vul[facility] Clinic at [facility], where we already referred her to, Dr. Leonard. Thanks! If she needs it again, the number is [phone]. documented in this encounter Plan of Treatment Not on file documented as of this encounter Visit Diagnoses Not on filedocumented in this encounter Care Teams Customs Guard Relationship Specialty Start Date End Date Casa Encarnacion MD [address] [place] [phone] PCP - General Internal Medicine 10/12/14 documented as of this encounter
--- OUTSIDE RECORDS SUMMARY | 2024-09-08 21:12 | XMS_ITS | Encounter Summary ---
Author Organization [facility] Address [address] [place] [address] Care Team Providers Care Converter Skimmer Name Role Phone Casa Encarnacion MD Primary Care Provider + Reason for Visit * Reason Onset Date Comments Yeast Infection 11/15/2015 Encounter Details Date Type Department Care Team (Late st Contact Info) Description 11/15/2015 Telephone [facility] INSPECTOR ALIGNING - [facility] [address] [facility], [address] [place] [address] Didi Roberto MD [address] [place] [address] Yeast Infection Social History Tobacco [...] PM CST Pt notified as stated below. E CARRIER * Telephone Encounter - Didi Roberto MD - 11/16/2015 1:49 PM ROUTE CARRIER Her yeast culture is negative to date and her Gen path is negative for yeast as well. I would just keep doing what she is doing and try more baking soda sitz and Crisco. Call back next week with an update. E CARRIER * Telephone Encounter - Isha Fernandes - 11/15/2015 2:18 PM CST Patient took both dosages for Diflucan, last one was on Friday. Pt still having some burning and isuncomfortable. States she is doing everything doctor said with no relief. E CARRIER documented in this encounter Plan of Treatment Not on file documented as of this encounter Visit Diagnoses Not on filedocumented in this encounter Care Teams Converter Skimmer Relationship Specialty Start Date End Date Casa Encarnacion MD [address] [place] [phone] PCP - General Internal Medicine 10/12/14 documented as of this encounter
--- OUTSIDE RECORDS SUMMARY | 2024-09-08 21:12 | XMS_ITS | Encounter Summary ---
Author Organization [facility] Address [address] [place] [address] Care Team Providers Care Aluminum Hydroxide Process Operator Name Role Phone Casa Encarnacion MD Primary Care Provider + Reason for Visit * Reason Onset Date Comments Medication Question 11/09/2014 Encounter Details Date Type Department Care Team (Late st Contact Info) Description 11/09/2014 Telephone [facility] MANAGER CAR - [facility] [address] [facility], [address] [place] [address] Didi Roberto MD [address] [place] [address] Medication Question Social History Tobacco [...] Didi Roberto MD - 11/09/2014 3:21 PM LEGAL FINANCIAL SPECIALIST OK, noted. L FINANCIAL SPECIALIST * Telephone Encounter - Sandra Yu RMA - 11/09/2014 2:55 PM CST Pt given instruction on use of compound cream and estrace. Advised ok to use crisco for additional moisturization as well. L FINANCIAL SPECIALIST * Telephone Encounter - Colette Hyman - 11/09/2014 1:58 PM CST Medication question L FINANCIAL SPECIALIST documented in this encounter Plan of Treatment Not on file documented as of this encounter Visit Diagnoses Not on filedocumented in this encounter Care Teams Aluminum Hydroxide Process Operator Relationship Specialty Start Date End Date Casa Encarnacion MD [address] [place] [phone] PCP - General Internal Medicine 10/12/14 documented as of this encounter
--- OUTSIDE RECORDS SUMMARY | 2024-09-08 21:12 | XMS_ITS | Encounter Summary ---
Author Organization [facility] Address [address] [place] [address] Care Team Providers Care Pump House Operator Name Role Phone Casa Encarnacion MD Primary Care Provider + Reason for Visit * Reason Onset Date Comments Urinary Pain 10/10/2015 Encounter Details Date Type Department Care Team (Late st Contact Info) Description 10/10/2015 Telephone [facility] THERAPEUTIC RADIOLOGIST - [facility] [address] [facility], [address] [place] [address] Didi Roberto MD [address] [place] [address] Urinary Pain Social History Tobacco [...] days and call back if symptoms persist. ERCIAL MAKEUP ARTIST * Telephone Encounter - Didi Roberto MD - 10/10/2015 11:23 AM CST She is taking a lot of Diflucan. If she is having urinary symptoms, she should be evaluated for possible UTI. She can do that with her PCP. Thanks! ERCIAL MAKEUP ARTIST * Telephone Encounter - Lydia Escamilla RN - 10/10/2015 10:45 AM CST Patient states she took 1 Diflucan on Sep 20 and her urinary symptoms did subside. Today she statesshe is having burning upon urination again. Please advise. TY ERCIAL MAKEUP ARTIST documented in this encounter Plan of Treatment Not on file documented as of this encounter Visit Diagnoses Not on filedocumented in this encounter Care Teams Pump House Operator Relationship Specialty Start Date End Date Casa Encarnacion MD [address] [place] [phone] PCP - General Internal Medicine 10/12/14 documented as of this encounter
--- OUTSIDE RECORDS SUMMARY | 2024-09-08 21:12 | XMS_ITS | Encounter Summary ---
Author Organization [employer] Address [address] [place] [address] Care Team Providers Care Gym Manager Name Role Phone Casa Encarnacion MD Primary Care Provider + Encounter Details Date Type Department Care Team (Late st Contact Info) Description 03/01/2015 Orders Only [employer] [address] [place] [address] Vasquez Feng Vulvitis Social History [...] METHOD AEROBIC CULTURE 03/30/2015 2:15 PM CDT [facility] [employer] [facility] Genital (Vaginal) Collection / Unknown 03/01/2015 3:41 PM CDT 03/01/2015 9:07 PM CDT Didi Roberto MD MICROBIOLO GY - GENERAL ORDERABLES [employer] [facility] CLIA# [id number] [address] [place] [address] documented in this encounter Visit Diagnoses Diagnosis Vulvitis Vaginitis and vulvovaginitis, unspecified documented in this encounter Care Teams Gym Manager Relationship Specialty Start Date End Date Casa Encarnacion MD [address] [place] [phone] PCP - General Internal Medicine 10/12/14 documented as of this encounter
--- OUTSIDE RECORDS SUMMARY | 2024-09-08 21:12 | XMS_ITS | Encounter Summary ---
Author Organization [facility] Address [address] [place] [address] Care Team Providers Care Weed Burner Name Role Phone Casa Encarnacion MD Primary Care Provider + Encounter Details Date Type Department Care Team (Late st Contact Info) Description 11/08/2014 Abstract [facility] FLEET MAINTENANCE MANAGER - [facility] [address] [facility], [address] [place] [address] Didi Roberto MD [address] [place] [phone] Social History Tobacco Use Types Packs/Day Years [...] on filedocumented in this encounter Care Teams Weed Burner Relationship Specialty Start Date End Date Casa Encarnacion MD [address] [place] [phone] PCP - General Internal Medicine 10/12/14 documented as of this encounter
--- OUTSIDE RECORDS SUMMARY | 2024-09-08 21:12 | XMS_ITS | Encounter Summary ---
Author Organization [facility] Address [address] [place] [address] Care Team Providers Care Electron Tube Assembler Name Role Phone Casa Encarnacion MD Primary Care Provider + Reason for Visit * Reason Onset Date Comments Question 11/27/2015 Encounter Details Date Type Department Care Team (Late st Contact Info) Description 11/27/2015 Telephone [facility] FUEL DISTRIBUTION SYSTEM OPERATOR - [facility] [address] [facility], [address] [place] [address] Didi Roberto MD [address] [place] [address] Question Social History Tobacco Use [...] on filedocumented in this encounter Care Teams Electron Tube Assembler Relationship Specialty Start Date End Date Casa Encarnacion MD [address] [phone] PCP - General Internal Medicine 10/12/14 documented as of this encounter
--- OUTSIDE RECORDS SUMMARY | 2024-09-08 21:12 | XMS_ITS | Encounter Summary ---
Author Organization [facility] Address [address] [place] [address] Care Team Providers Care Engine Inspector Name Role Phone Caas Encarnacion MD Primary Care Provider + Reason for Visit * Reason Onset Date Comments Question 11/22/2014 Encounter Details Date Type Department Care Team (Late st Contact Info) Description 11/22/2014 Telephone [facility] SEATING UPHOLSTERER - [facility] [address] [facility], [address] [place] [address] Didi Roberto MD [address] [place] [address] Question Social History Tobacco Use [...] on filedocumented in this encounter Care Teams Engine Inspector Relationship Specialty Start Date End Date Casa Encarnacion MD [address] [place] [phone] PCP - General Internal Medicine 10/12/14 documented as of this encounter
--- OUTSIDE RECORDS SUMMARY | 2024-09-08 21:12 | XMS_ITS | Clinical Summary ---
Author Organization [facility] Address [address] [place] [address] Phone Care Team Providers Care Diesel Truck Driver Name Role Phone Casa Encarnacion MD [...] Comments Blood Pressure 140/82 11/08/2015 3:33 PM NICKING MACHINE OPERATOR Pulse - - Temperature - - Respiratory Rate - - Oxygen Saturation - - Inhaled Oxygen Concentration - - Weight 59 kg (130 lb) 11/08/2015 3:33 PM NICKING MACHINE OPERATOR Height 167.6 cm (5' 6 ) 11/08/2015 3:33 PM NICKING MACHINE OPERATOR Body Mass Index 20.98 11/08/2015 3:33 PM NICKING MACHINE OPERATOR Plan of Treatment Health Maintenance Due Date [...] 7, 04/22/2014, 09/08/2013 (Previously completed) Care Teams Diesel Truck Driver Relationship Specialty Start Date End Date Casa Encarnacion MD [address] [place] [phone] PCP - General Internal Medicine 10/12/14
--- OUTSIDE RECORDS SUMMARY | 2024-09-08 21:12 | XMS_ITS | Encounter Summary ---
Author Organization [facility] Address [address] [place] [address] Care Team Providers Care Assistant Analyst Name Role Phone Casa Encarnaicon MD Primary Care Provider + Reason for Visit * Reason Onset Date Comments Labs Only 12/07/2014 Encounter Details Date Type Department Care Team (Late st Contact Info) Description 12/07/2014 Telephone [facility] MEAT TEAM LEAD - [facility] [address] [facility], [address] [place] [address] Didi Roberto MD [address] [place] [address] Labs Only Social History Tobacco [...] TOTAL PROTEIN 5.8(L) 6.1 - 8.1 g/dL [facility] ALBUMIN 3.9 3.6 - 5.1 g/dL [facility] GLOBULIN 1.9 1.9 - 3.7 g/dL (calc) [facility] ALBUMIN/GLOBULIN RATIO 2.1 1.0 - 2.5 (calc) [facility] BILIRUBIN TOTAL 0.3 0.2 - 1.2 mg/dL [facility] BILIRUBIN DIRECT 0.0 < OR = 0.2 mg/dL [facility] BILIRUBIN INDIRECT 0.3 0.2 - 1.2 mg/dL (calc) [facility] ALKALINE PHOSPHATASE 39 33 - 130 U/L [facility] AST 17 10 - 35 U/L [facility] ALT 11 6 - 29 U/L [facility] Comment: Test Performed at: [facility] [place] [address] [place], [place] ??[phone] SHAY WARREN DO,MPH 12/07/2014 4:31 PM CDT Didi Roberto MD CHEMISTRY ORDERABLES [facility] [address] [place] [address] documented in this encounter Visit Diagnoses Diagnosis Medication management- Primary Encounter for other specified aftercare documented in this encounter Care Teams Assistant Analyst Relationship Specialty Start Date End Date Casa Encarnacion MD [address] [place] [phone] PCP - General Internal Medicine 10/12/14 documented as of this encounter
--- OUTSIDE RECORDS SUMMARY | 2024-09-08 21:13 | XMS_ITS | Encounter Summary ---
Author Organization [facility] Address [address] [place] [address] Care Team Providers Care Electric Blanket Packer Name Role Phone Casa Encarnacion MD Primary Care Provider + Reason for Visit * Reason Onset Date Comments Other 11/04/2014 need medication called in Encounter Details Date Type Department Care Team (Late st Contact Info) Description 11/04/2014 Telephone [facility] HEALTH EDUCATION SPECIALIST - [facility] [address] [facility], [address] [place] [address] Didi Estevez MD [address] [place] [address] [address] [place] [address] Other (need medication called in) [...] - 11/04/2014 12:11 PM CST Patient notified. ER AND BREAKER * Telephone Encounter - Didi Roberto MD - 11/04/2014 11:25 AM CST Yes, I can send that it to her pharmacy. I was not sure if she said she would try it or not. I willsend it in now. Thanks! ER AND BREAKER * Telephone Encounter - Marilin Shah RN - 11/04/2014 11:04 AM CST Compounded ointment rx called to [facility]. Patient requesting a prescription for Atarax?pls advise. thx. ER AND BREAKER * Telephone Encounter - Didi Roberto MD - 11/04/2014 10:34 AM CST Please call in to [facility] [phone] the following compounded ointment for pt. She wants it mailed to her. 3% Gabapentin, 2% ketamine, 2% baclofen ointment. Apply to affected area bid, pea size amount. Dispense: 30 g, refill 1 Thanks! ER AND BREAKER documented in this encounter Plan of Treatment Not on file documented as of this encounter Visit Diagnoses Diagnosis Vulvar itching- Primary Pruritus of genital organs documented in this encounter Care Teams Electric Blanket Packer Relationship Specialty Start Date End Date Casa Encarnacion MD [address] [place] [phone] PCP - General Internal Medicine 10/12/14 documented as of this encounter
--- OUTSIDE RECORDS SUMMARY | 2024-09-08 21:13 | XMS_ITS | Encounter Summary ---
Author Organization [facility] Address [address] [place] [address] Care Team Providers Care Merchandise Presentation Associate Name Role Phone Casa Encarnacion MD Primary Care Provider + Encounter Details Date Type Department Care Team (Latest Contact Info) Description 10/12/2014 7:23 PM COLORECTAL SURGEON - 10/12/2014 11:59 PM COLORECTAL SURGEON Hospital Encounter [facility] Support Services [facility] [address] [place] [address] Ryan Marks MD NO ADDRESS ON FILE [...] PAP RLFX HPV Routine 10/12/2014 7:25 PM COLORECTAL SURGEON Special screening for malignant neoplasms, vagina Special screening examination for human papillomavirus (HPV) documented in this encounter Results * CERV/VAG CYTOPATH, THIN PREP IMAGR RFLX HPV (CP) (10/12/2014 7:25 PM COLORECTAL SURGEON) PAP INTERP Negative for intraepithelial lesion or malignancy. [facility] Comment: Performed by [facility], [address] [place] [address] Cannery Tender Engineer Pap Comment This Pap test has been evaluated with computer assisted technology. [facility] ADEQUACY: SATISFACTORY FOR EVALUATION [facility] CLINICAL INFORMATION Information not provided [facility] SOURCE Vaginal cuff [facility] SERVICES [facility] PREV PAP: INFORMATION NOT PROVIDED [facility] CYTOTECHNOLOGI ST: MLO, CT(ASCP) [facility] SERVICES [facility] LAST MENSTRUAL PERIOD INFORMATION NOT PROVIDED [facility] PREV BX: INFORMATION NOT PROVIDED [facility] Vaginal 10/12/2014 7:25 PM COLORECTAL SURGEON 10/12/2014 9:59 PM COLORECTAL SURGEON Comment:VAGINAL Narrative [facility] - 10/19/2014 8:57 AM COLORECTAL SURGEON vgcuff Ryan Marks MD PATHOLOGY/CYTOLOG Y ORDERABLES [facility] [employer] [facility] CLIA# [id number] [address] [place] [address] documented in this encounter Visit Diagnoses Diagnosis Special screening for malignant neoplasms, vagina- Primary Special screening examination for human papillomavirus (HPV) documented in this encounter Care Teams Merchandise Presentation Associate Relationship Specialty Start Date End Date Casa Encarnacion MD [address] [place] [phone] PCP - General Internal Medicine 10/12/14 documented as of this encounter
--- OUTSIDE RECORDS SUMMARY | 2024-09-08 21:13 | XMS_ITS | Encounter Summary ---
Author Organization [facility] Address [address] [place] [address] Care Team Providers Care Customer Development Manager Name Role Phone Casa Encarnacion MD Primary Care Provider + Reason for Visit * Reason Onset Date Comments Results 10/20/2014 Encounter Details Date Type Department Care Team (Late st Contact Info) Description 10/20/2014 Telephone [facility] Minimally Invasive Gynecology [address] [facility] [address] [place] [address] Ryan Marks MD NO ADDRESS [...] CST Pt notified of normal pap results E DUSTER documented in this encounter Plan of Treatment Not on file documented as of this encounter Visit Diagnoses Not on filedocumented in this encounter Care Teams Customer Development Manager Relationship Specialty Start Date End Date Casa Encarnacion MD [address] [place] [phone] PCP - General Internal Medicine 10/12/14 documented as of this encounter
--- OUTSIDE RECORDS SUMMARY | 2024-09-08 21:13 | XMS_ITS | Encounter Summary ---
Author Organization [facility] Address [address] [place] [address] Care Team Providers Care Drier Name Role Phone Casa Encarnacion MD Primary Care Provider + Reason for Visit * Reason Comments Vaginal Problem referral from Dr. Ra carlos Encarnacion for vaginal itching and dryness Encounter Details Date Type Department Care Team (Latest Contact Info) Description 10/12/2014 1:00 PM BROKER AGRICULTURAL PRODUCE Office Visit [facility] Minimally Invasive Gynecology [address] [facility] [address] [place] [address] Ryan Marks MD NO ADDRESS [...] Comments Blood Pressure 122/74 10/12/2014 12:26 PM BROKER AGRICULTURAL PRODUCE Pulse - - Temperature - - Respiratory Rate - - Oxygen Saturation - - Inhaled Oxygen Concentration - - Weight 55.3 kg (122 lb) 10/12/2014 12:26 PM BROKER AGRICULTURAL PRODUCE Height 163.2 cm (5' 4.25 ) 10/12/2014 12:[address] Body Mass Index 20.78 10/12/2014 12:26 PM BROKER AGRICULTURAL PRODUCE documented in this encounter Progress Notes * Ryan Marks MD - 10/12/2014 1:08 PM CST New Patient History & Physical HPI: Luanne Gotti is a 79 y.o. female [id number] who is referred by Dr. Encarnacion for [...] vulvar pruritis and dryness Ryan Marks MD ER AGRICULTURAL PRODUCE documented in this encounter Plan of Treatment Not on file documented as of this encounter Procedures Procedure Name Priority Date/Time Associated Diagnosis Comments POC VAGINAL WET PREP Routine 10/12/2014 2:40 PM BROKER AGRICULTURAL PRODUCE Vaginal discharge Vagina itching POC PH, VAGINAL FLUID (NON-MATERNAL) Routine 10/12/2014 2:40 PM BROKER AGRICULTURAL PRODUCE Vaginal discharge Vagina itching documented in this encounter Results * POC VAGINAL WET PREP (10/12/2014 2:40 PM BROKER AGRICULTURAL PRODUCE) WET WBCS neg [facility] W[facility] RBCS neg [facility] WET YEAST neg [facility] WET TRICHOMONAS neg [facility] WET CLUE CELLS neg [facility] Vaginal 10/12/2014 2:40 PM BROKER AGRICULTURAL PRODUCE Ryan Marks MD POINT OF CARE HERLINDA CORDERO Performing Organization Address [facility] Co de Phone Number [facility] * POC PH, VAGINAL FLUID (NON-MATERNAL) (10/12/2014 2:40 PM BROKER AGRICULTURAL PRODUCE) PH, VAGINAL FLD POC 4.0 [facility] Vaginal 10/12/2014 2:40 PM BROKER AGRICULTURAL PRODUCE Ryan Marks MD POINT OF CARE HERLINDA CORDERO [facility] documented in this encounter Visit Diagnoses Diagnosis Special screening for malignant neoplasms, vagina- Primary Special screening examination for human papillomavirus (HPV) Vaginal discharge Leukorrhea, not specified as infective Vagina itching Pruritus of genital organs documented in this encounter Care Teams Drier Relationship Specialty Start Date End Date Casa Encarnacion MD [address] [place] [phone] PCP - General Internal Medicine 10/12/14 documented as of this encounter
--- OUTSIDE RECORDS SUMMARY | 2024-09-08 21:13 | XMS_ITS | Encounter Summary ---
Author Organization [facility] Address [address] [place] [address] Care Team Providers Care Welding Teacher Name Role Phone Casa Encarnacion MD Primary Care Provider + Reason for Visit * Reason Comments Vaginal Problem burning once a month X last year Encounter Details Date Type Department Care Team (Late st Contact Info) Description 11/03/2014 3:00 PM LEAD SOFTWARE DEVELOPER Office Visit [facility] RANGE OPERATOR - [facility] [address] [facility], [address] [place] [address] Didi Dominguez MD [address] [place] [address] [address] [place] [address] Vulvar burning (Primary Dx); Vulvar [...] Comments Blood Pressure 144/82 11/03/2014 3:02 PM LEAD SOFTWARE DEVELOPER Pulse - - Temperature - - Respiratory Rate - - Oxygen Saturation - - Inhaled Oxygen Concentration - - Weight 56.7 kg (125 lb) 11/03/2014 3:02 PM LEAD SOFTWARE DEVELOPER Height 167.6 cm (5' 6 ) 11/03/2014 3:02 PM LEAD SOFTWARE DEVELOPER Body Mass Index 20.18 11/03/2014 3:02 PM LEAD SOFTWARE DEVELOPER documented in this encounter Progress Notes * Didi Roberto MD - 11/04/2014 10:54 PM CST New Vulvovaginal Problem Visit--OBGYN Chief Complaint Patient presents with ??? Vaginal Problem burning once a month X last year HPI: Luanne Gotti is a 79 y.o. who presents [...] questionnaire filled out by the patieint. 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 Didi Roberto MD 11/04/2014 SOFTWARE DEVELOPER documented in this encounter Plan of Treatment Not on file documented as of this encounter Visit Diagnoses Diagnosis Vulvar burning- Primary Unspecified symptom associated with female genital organs Vulvar itching Pruritus of genital organs Vulvar atrophy Atrophy of vulva Vaginal atrophy Postmenopausal atrophic vaginitis Vulvitis Vaginitis and vulvovaginitis, unspecified Vulvodynia Vulvodynia, unspecified documented in this encounter Care Teams Welding Teacher Relationship Specialty Start Date End Date Casa Encarnacion MD [address] [place] [phone] PCP - General Internal Medicine 10/12/14 documented as of this encounter
== END 2024-09-01 20:45 | disposition home or self-care (01) ==
PROVIDERS: Emergency Provider Emergency Medicine; PCP Internal Medicine
DX: N39.0 Urinary tract infection, site not specified (principal); E78.2 Mixed hyperlipidemia; M81.0 Age-related osteoporosis without current pathological fracture; K21.9 Gastro-esophageal reflux disease without esophagitis; E55.9 Vitamin D deficiency, unspecified; I71.20 Thoracic aortic aneurysm, without rupture, unspecified; I10 Essential (primary) hypertension; Z86.73 Personal history of transient ischemic attack (TIA), and cerebral infarction without residual deficits; Z79.82 Long term (current) use of aspirin
CPT/HCPCS: 36415; 70450; 80053; 81001; 82948; 85027; 85610; 85730; 87077; 87086; 87088; 87186; 99284; A9270

== ENCOUNTER 2024-11-02 10:32 | Outpatient (CLI) | payer MEDICARE, SELFPAY ==
[2024-11-02 10:44] LABS: Hematocrit 38.5 % (35.0-42.0); Hemoglobin 11.7 g/dL (11.7-13.8); Mean Corpuscular HGB Conc 30.4 g/dL (32-36); Mean Corpuscular Volume 95.3 fL (78.0-102.0); Mean Platelet Volume 10.3 fl (9.2-11.8); Platelet Count Result 257 K/mm3 (150-420); Red Blood Count 4.04 M/mm3 (4.20-5.40); Red Cell Distribution Width 14.2 % (11.6-14.4)
[2024-11-02 11:27] LABS: Ferritin 46 ng/mL (8-252); Iron 83 ug/dL (50-170)
[2024-11-02 11:31] LABS: Vitamin B12 > 2000 pg/mL (193-986)
--- OUTSIDE RECORDS SUMMARY | 2024-11-02 12:24 | XMS_ITS | Clinical Summary ---
Author Organization [facility] Address [address] [place] [address] Care Team Providers Care Lotus Notes Developer Name Role Phone Casa Encarnacion MD Primary Care Provider [phone] Source Comments [facility],non-owned Affiliates and Associated Physician Practices is amultiple site organization consisting of ambulatory clinics and hospital sitesin [place], [place], [place] and [place]. This disclosure is being madepursuant to the Care Everywhere program and may not contain all information available regarding this patient. Last updated 18.[facility] Allergies Active Allergy Reactions Criticality Noted Date [...] be different from the original. Patient uses [employer]. Phone number [phone] Fax number [phone] Problem Noted Date Diagnosed Date Acute ischemic [...] Description 08/09/2024 Refill [facility] - [facility] TELE[facility] [address] [place] [address] Aye Dao MD Refill Request 08/09/2024 Telephone [facility] - [facility] [address] [place] [address] Aye Dao MD Medication Request from Last 3 Months Immunizations Name Administration Dates Next Due INFLUENZA VACCINE, TRIV. 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 Temperature 36.5 C (97.7 F) 06/01/2024 12:55 PM CDT Respiratory Rate - - Oxygen Saturation [...] CDT Office Visit [facility] - [facility]NA[facility] TELE[facility] [address] [place] [address] Aye Dao MD [address] [place] [address] Health Maintenance Due Date Last Done Comments BONE DENSITY TESTING 1935 MEDICARE AWV 12 MONTHS 1935 DTAP/TDAP/TD VACCINES (1 - Tdap) 02/23/1956 ZOSTER VACCINE (1 of 2) 1987 PNEUMOCOCCAL VACCINE 50+ (2 of 2 - PPSV23) 09/08/2010 09/08/2009 Respiratory Syncytial Virus (RSV) Vaccine Pt: or over 60 yrs (1 - 1-dose 75+ series) 02/23/2012 COVID-19 VACCINE ( season) 2024 06/30/2022, 07/04/2021, 11/03/2020, Additional history exists INFLUENZA VACCINE (#1) 2024 2, 06/19/2021, 06/13/2020, Additional history exists DEPRESSION SCREENING 09/08/2024 HEPATITIS B VACCINE Aged Out No longe r eligible based on patient's age to complete this topic HIB VACCINE Aged Out No longer eligi ble based on patient's age to complete this topic HPV VACCINE Aged Out No longer eligi ble based on patient's age to complete this topic MENINGOCOCCAL (Group B) VACCINE Aged Out No longer eligible based on patient's age to complete this topic MENINGOCOCCAL VACCINE Aged Out No adam yuniel eligible based on patient's age to complete this topic Care Teams Lotus Notes Developer Relationship Specialty Start Date End Date Casa Encarnacion MD PCP - General 12/12/15
--- OUTSIDE RECORDS SUMMARY | 2024-11-02 12:24 | XMS_ITS ---
Author Organization [facility] Address [address] [place], [place] [address] Care Team Providers Care Us Customs And Border Officer Name Role Phone CYNDY DUTTON Unavailable [phone] Casa Encarnacion Unavailable Unavailable PARVIN CORDOVA Unavailable [phone] REASON FOR VISIT *General care Medications Medication SIG (Take, Route, Frequency, Duration) Notes Start Date End Date Status chlordiazepoxide hydrochloride 5 MG Oral Capsule ORAL chlordiazepoxide hydrochloride 5 MG Oral CapsuleOriginal Medicationchlordiazepoxide hydrochloride 5 MG Oral Capsule *Reorder from [employer] for eRx and Interaction Alerts* 09/02/20 12 Active Metoprolol Tartrate 25 MG Oral Tablet ORAL metoprolol tartrate 25 MG Oral TabletOriginal Medicationmetoprolol tartrate 25 MG Oral Tablet *Reorder from [employer] for eRx and Interaction Alerts* 09/02/20 12 Active ciclopirox 80 MG/ML Topical Solution ciclopirox 80 MG/ML Topical SolutionOriginal Medicationciclopirox 80 MG/ML Topical Solution *Reorder from [employer] for eRx and Interaction Alerts* 12/17/19 15 Active Lisinopril 10 MG Oral Tablet ORAL lisinopril 10 MG Oral TabletOriginal Medicationlisinopril 10 MG Oral Tablet *Reorder from [employer] for eRx and Interaction Alerts* 09/02/20 12 Active Atenolol 25 MG Oral Tablet ORAL atenolol 25 MG Oral TabletOriginal Medicationatenolol 25 MG Oral Tablet *Reorder from [employer] for eRx and Interaction Alerts* 12/20/19 15 Active Encounters Encounter Location Date Provider Diagnosis [address] [id number] 07/01/2024 PARVIN CORDOVA Other hammer toe(s) (acquired), right foot M20.41 ; Tinea unguium B35.1 ; Other hammer toe(s) (acquired), left foot M20.42 ; Pain in right toe(s) M79.674 ; Pain in left toe(s) M79.675 ; Unspecified atherosclerosis of [place] arteries of extremities, bilateral legs I70.203 and [...] (ICD-10 - M79.675) 07/01/2024 Unspecified atherosclerosis of [place] arteries of extremities, bilateral legs (ICD-10 - [...] OTC and prescription treatments. Unspecified atherosclerosis of [place] arteries of extremities, bilateral legs Patient educated [...] Up: 3 Months, Reason: Provider Name:CYNDY OMER, 10:30:00 AM, [address] [place] [address], [id number], Progress Notes * PARAMJITBRENDA HILLS MDOB: (89 yo F)Acc No.[id number]:07/01/2024 Patient: BRENDA MONREAL Provider: Ward CORDOVA :1935 A ge:89 Y S ex:Female Date:07/01/2024 Address:[address] [facility], [facility] Subjective: * Chief Complaints: * 1 . *General care. * HPI: H PI: General care P atient presents to the office for at risk foot care. Patient states that their nails are thickened, elongated and painful. Patient states that it is aggravated by shoe gear. Onset is gradual. Patient denies being diabetic., Patient denies taking prescription blood thinners but does take a daily aspirin., Date last seen by Dr. Encarnacion was 01/2024., Initials [facility]. * ROS: G eneral / Constitutional: Patient denies w eakness. R espiratory: Patient denies c hronic cough, shortness of breath, sputum production. C ardiovascular: Patient denies c hest pain, history of MS, irregular heartbeat. M usculoskeletal: Patient complains of h ammertoes, flat feet/ planus. ? P eripheral Vascular: Patient denies b lanching of skin, cold extremities, decreased sensation in extremities. S kin: Patient complains of n ail changes, fungal nails, calluses and corns. N eurologic: Patient denies d izziness, gait abnormality, headache. * Medical History: * Medications: T aking Atenolol 25 MG Oral Tablet ORAL , Notes to Pharmacist: atenolol 25 MG Oral TabletOriginal Medicationatenolol 25 MG Oral Tablet *Reorder from [facility] for eRx and Interaction Alerts*, Taking Lisinopril 10 MG Oral Tablet ORAL , Notes to Pharmacist: lisinopril 10 MG Oral TabletOriginal Medicationlisinopril 10 MG Oral Tablet *Reorder from [facility] for eRx and Interaction Alerts*, Taking Metoprolol Tartrate 25 MG Oral Tablet ORAL , Notes to Pharmacist: metoprolol tartrate 25 MG Oral TabletOriginal Medicationmetoprolol tartrate 25 MG Oral Tablet *Reorder from [facility] for eRx and Interaction Alerts*, Taking chlordiazepoxide hydrochloride 5 MG Oral Capsule ORAL , Notes to Pharmacist: chlordiazepoxide hydrochloride 5 MG Oral CapsuleOriginal Medicationchlordiazepoxide hydrochloride 5 MG Oral Capsule *Reorder from [facility] for eRx and Interaction Alerts*, Taking ciclopirox 80 MG/ML Topical Solution , Notes to Pharmacist: ciclopirox 80 MG/ML Topical SolutionOriginal Medicationciclopirox 80 MG/ML Topical Solution *Reorder from [facility] for eRx and Interaction Alerts* Objective: * Vitals: * Examination: P hysical Examination: V ascular: Dorsalis Pedis pulse noted at 1/4 right [...] first metatarsophalangeal joint bilaterally. Assessment: * Assessment: 1. T inea unguium - B35.1 (Primary) 2 . O ther hammer toe(s) (acquired), right foot - M20.41 3 . O ther hammer toe(s) (acquired), left foot - M20.42 ? 4 . P ain in right toe(s) - M79.674 5 . P ain in left toe(s) - M79.675 6 . 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 A cquired keratosis [keratoderma] palmaris et plantaris - L85.1 Plan: * Treatment: 2. O ther hammer toe(s) (acquired), right foot Notes: The patient was educated regarding how [...] were discussed, but conservative options were emphasized. 3. U nspecified atherosclerosis of [place] arteries of extremities, bilateral legs Notes: Patient educated on risks and aggravating factors of PVD, including conservative treatment options such as a diet and exercise regimen to aid in slowing progression of vascular disease ? 4. 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 After removal of overlying extensive hyperkeratosis, healthy tissue was noted and care was taken to assure that no undermining or probing was present. It should be noted that no probing was noted and no infection or drainage was noted. ? * Procedure Codes: 1 1056 TRIM SKIN LESIONS, 2 TO 4, Modifiers: Q8 , 50994 DEBRIDE NAIL, 6 OR MORE, Modifiers: 59 , Q8 * Follow Up: 3 Months * Billing Information: * Visit Code: * Procedure Codes: 97360 TRIM SKIN LESIONS, 2 TO 4. Modifiers: Q8 38384 DEBRIDE NAIL, 6 OR MORE. Modifiers: 59, Q8 * RATOR L[employer]ING FIXTURES Sign off status: Completed true * Provider: Ward CORDOVA Date: Generated for Jonnathan henao/Cathy/Armand on: 0 11/02/2024 12:23 PM DECORATOR LIGHTING FIXTURES History and Physical Notes * HPI (History [...]
--- OUTSIDE RECORDS SUMMARY | 2024-11-02 12:24 | XMS_ITS | Patient Health Summary ---
Author Organization [facility] Address [address] [place] [address] Care Team Providers Care Gun Numberer Name Role Phone Casa Encarnacion MD Primary Care Provider [phone] Note from [facility],non-owned Affiliates and Associated Physician Practices is amultiple site organization consisting of ambulatory clinics and hospital sitesin [place], [place] and [place]. This disclosure is being madepursuant to the Care Everywhere program and may not contain all information available regarding this patient. 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 Temperature 36.5 C (97.7 F) 06/01/2024 12:55 [...] CDT) Culture Yeast with ID [facility] Comment: CULTURE, YEAST, W/IDENTIFICATION Micro Number: [id number] Test Status: Final Specimen Source: Vulva Specimen Quality: Adequate Result: No fungal growth at 2 Weeks Test Performed at: [email or web address] [address] ZORAIDA TYLER MD Microbiology ENTIRE VULVA / Unknown 04/12/2021 10:59 AM CDT 04/13/2021 3:14 AM CDT Elisa Fisher APRN-PHLEBOTOMY PROGRAM COORDINATOR LAB - MICRO BIOLOGY ORDERABLES [address] [address] * LAB RESULTS ORDER (06/28/2019 12:31 PM CDT) Narrative 06/28/2019 12:31 PM CDT Ordered by an unspecified provider. Scanned Document LAB - THERAPEUTIC DR MCCRAY MONITORING ORDERABLES * (ABNORMAL) CULTURE URINE (05/25/2019 11:13 AM CDT) Only the most recent of7 resultswithin the time period is included. Culture (A) [facility] Comment: CULTURE, URINE, ROUTINE MICRO NUMBER: [id number] TEST STATUS: FINAL SPECIMEN SOURCE: URINE SPECIMEN QUALITY: ADEQUATE RESULT: Greater than 100,000 CFU/mL of Klebsiella pneumoniae K.pneumoniae INT LEO AMOX/CLAVULANATE S <=2 AMPICILLIN R 16 AMP/SULBACTAM S <=2 CEFAZOLIN NR <=4 2 CEFEPIME S <=1 CEFTRIAXONE S <=1 CIPROFLOXACIN S <=0.25 ERTAPENEM S <=0.5 GENTAMICIN S <=1 IMIPENEM S <=0.25 LEVOFLOXACIN S <=0.12 NITROFURANTOIN S 32 PIP/TAZOBACTAM S <=4 TOBRAMYCIN S <=1 TRIMETHOPRIM/SULFA S <=20 S=Susceptible I=Intermediate R=Resistant * = Not Tested NR = Not Reported NN = See Therapy Comments THERAPY COMMENTS Note 1: For infections other than uncomplicated UTI caused by E. coli, K. pneumoniae or P. mirabilis: Cefazolin is resistant if LEO > or = 8 mcg/mL. (Distinguishing susceptible versus intermediate for isolates with LEO < or = 4 mcg/mL requires additional testing.) Note 2: For uncomplicated UTI caused by E. coli, K. pneumoniae or P. mirabilis: Cefazolin is susceptible if LEO <32 mcg/mL and predicts susceptible to the oral agents cefaclor, cefdinir, cefpodoxime, cefprozil, cefuroxime, cephalexin and loracarbef. Test Performed at: [email or web address] [address] ZORAIDA TYLER MD Urine URINE SPECIMEN OBTAINED BY CLEAN CATCH PROCEDURE / Unknown 05/25/2019 11:13 AM CDT 05/25/2019 11:14 AM CDT Aye Dao MD LAB - MICROBIOLOGY ORDERABLES [address] [address] * SUSCEPTIBILITY YEAST (05/12/2019 2:12 PM CDT) [...] of this test have been determined by [facility] [employer]. This test not be used for diagnosis without confirmation by other medically established means. Test Performed at: [facility], [facility] [address] [place] [phone] Tony PATTERSON 05/12/2019 2:12 PM CDT 05/12/2019 2:12 PM CDT Aye Dao MD LAB - MICROBIOLOGY ORDERABLES [address] [address] * (ABNORMAL) CULTURE YEAST WITH DIRECT FLUORESCENT MODESTA (05/12/2019 2:12 PM CDT) Only the most recent of4 resultswithin the time period is included. Smear (A) [facility] Comment: CULTURE, YEAST, W/DIRECT FLUORESCENT MODESTA MICRO NUMBER: [id number] TEST STATUS: FINAL SPECIMEN SOURCE: WOUND (SITE NOT SPECIFIED) SPECIMEN QUALITY: ADEQUATE SMEAR: No fungal elements seen. RESULT: [facility] albicans Test Performed at: [email or web address] [address] ZORAIDA TYLER MD 05/12/2019 2:12 PM CDT 05/12/2019 2:12 PM CDT Aye Dao MD LAB - MICROBIOLOGY ORDERABLES Performing Organization Address [facility]/ZIP Co de Phone Number [employer] [address] [place] [address] * (ABNORMAL) CULTURE URINE COMPREHENSIVE (03/27/2017 1:53 PM CDT) [facility] Culture SEE NOTE(A) [facility] ([facility]) Comment: CULTURE, URINE, SPECIAL MICRO NUMBER: [id number] TEST STATUS: FINAL SPECIMEN SOURCE: OTHER (SPECIFY) SPECIMEN QUALITY: ADEQUATE RESULT: Greater than 100,000 CFU/mL of Klebsiella pneumoniae K.pneumoniae INT LEO AMOX/CLAVULANATE S <=2 AMPICILLIN R >=32 AMP/SULBACTAM S 8 CEFAZOLIN NR <=4 1 CEFEPIME S <=1 CEFTRIAXONE S <=1 CIPROFLOXACIN S <=0.25 ERTAPENEM S <=0.5 GENTAMICIN S <=1 IMIPENEM S <=0.25 LEVOFLOXACIN S <=0.12 NITROFURANTOIN I 64 PIP/TAZOBACTAM S <=4 TOBRAMYCIN S <=1 TRIMETHOPRIM/SULFA S <=20 S=Susceptible I=Intermediate R=Resistant * = Not Tested NR = Not Reported NN = See Therapy Comments THERAPY COMMENTS Note 1: ORAL therapy: A cefazolin LEO of < 32 predicts susceptibility to the oral agents cefaclor, cefdinir, cefpodoxime, cefprozil, cefuroxime, cephalexin, and loracarbef when used for therapy of uncomplicated UTIs due to E. coli, K. pneumoniae, and P. mirabilis. PARENTERAL therapy: A cefazolin LEO of > 8 indicates resistance to parenteral cefazolin. An alternate test method must be performed to to confirm susceptibility to parenteral cefazolin. Test Performed at: [email or web address] [address] ZORAIDA TYLER MD 03/27/2017 1:53 PM CDT 03/27/2017 11:00 PM CDT Aye Dao MD LAB - MICROBIOLOGY ORDERABLES Performing Organization Address City/[facility]/ZIP Co de Phone Number [facility]) * PH FLUID - POCT (AMB) [facility] (11/05/2016) Only the most recent of2 resultswithin the time period is included. pH Vaginal 4.5 [facility] Vaginal swab (specimen) 11/05/2016 Aye Dao MD LAB - POINT OF CAR E ORDERABLES [facility] * WET PREP - POINT OF CARE (AMB) [facility] (11/05/2016) Only the most recent of2 resultswithin the time period is included. pH Wet Prep 4.5 [facility] Yeast Wet Prep neg [facility] Trichomonas Wet Prep neg [facility] Bacteria Wet Prep neg [facility] Whiff Test neg [facility] 11/05/2016 Aye Dao MD LAB - POINT OF CAR E ORDERABLES Performing Organization Address City/[facility]/ZIP Co de Phone Number [facility] * FUNGUS MODESTA - POINT OF CARE (AMB) [facility] (11/05/2016) Only the most recent of2 resultswithin the time period is included. MODESTA Prep negt [facility] Fluid specimen (specimen) 11/05/2016 Aye Dao MD LAB - POINT OF CAR E ORDERABLES [facility] Care Teams Gun Numberer Relationship Specialty Start Date End Date Casa Encarnacion MD PCP - General 12/12/15
--- OUTSIDE RECORDS SUMMARY | 2024-11-02 12:24 | XMS_ITS | Patient Health Record ---
Author Organization [facility] Address [address] [place], [place] [address] Care Team Providers Care Abrasive Worker Name Role Phone CYNDY DUTTON Unavailable [phone] Casa Encarnacion Unavailable Unavailable CYNDY OMER Unavailable [phone] PARVIN CORODVA Unavailable [phone] Allergies No Known Allergies Reason For Referral No Information Medications Medication SIG (Take, Route, Frequency, Duration) Notes Start Date End Date Status chlordiazepoxide hydrochloride 5 MG Oral Capsule ORAL chlordiazepoxide hydrochloride 5 MG Oral CapsuleOriginal Medicationchlordiazepoxide hydrochloride 5 MG Oral Capsule *Reorder from [employer] for eRx and Interaction Alerts* 09/02/20 12 Active ciclopirox 80 MG/ML Topical Solution ciclopirox 80 MG/ML Topical SolutionOriginal Medicationciclopirox 80 MG/ML Topical Solution *Reorder from [employer] for eRx and Interaction Alerts* 12/17/19 15 Active Atenolol 25 MG Oral Tablet ORAL atenolol 25 MG Oral TabletOriginal Medicationatenolol 25 MG Oral Tablet *Reorder from [employer] for eRx and Interaction Alerts* 12/20/19 15 Active Lisinopril 10 MG Oral Tablet ORAL lisinopril 10 MG Oral TabletOriginal Medicationlisinopril 10 MG Oral Tablet *Reorder from [employer] for eRx and Interaction Alerts* 09/02/20 12 Active Metoprolol Tartrate 25 MG Oral Tablet ORAL metoprolol tartrate 25 MG Oral TabletOriginal Medicationmetoprolol tartrate 25 MG Oral Tablet *Reorder from [employer] for eRx and Interaction Alerts* 09/02/20 12 Active Immunizations Vaccine Route Administration Date Status Comme nts Influenza, high dose seasonal Unknown 06/13/2023 Admini stered Vital Signs Height-cm 162.56 cm 02/26/2024 Weight-kg 61.69 kg 02/26/2024 Height 64.00 in 02/26/2024 Weight 136 lbs 02/26/2024 BMI 23.34 kg/m2 02/26/2024 Encounters Encounter Location Date Provider Diagnosis [address] [id number] 12/18/2023 PARVIN CORDOVA Other hammer toe(s) (acquired), right foot M20.41 ; Tinea unguium B35.1 ; Other hammer toe(s) (acquired), left foot M20.42 ; Pain in right toe(s) M79.674 ; Pain in left toe(s) M79.675 ; Unspecified atherosclerosis of [place] arteries of extremities, bilateral legs I70.203 and Acquired keratosis [keratoderma] palmaris et plantaris L85.[address] [id number] 02/26/2024 PARVIN CORDOVA Other hammer toe(s) (acquired), right foot M20.41 ; Tinea unguium B35.1 ; Other hammer toe(s) (acquired), left foot M20.42 ; Pain in right toe(s) M79.674 ; Pain in left toe(s) M79.675 ; Unspecified atherosclerosis of [place] arteries of extremities, bilateral legs I70.203 and Acquired keratosis [keratoderma] palmaris et plantaris L85.[address] [id number] 04/29/2024 PARVIN CORDOVA Other hammer toe(s) (acquired), right foot M20.41 ; Tinea unguium B35.1 ; Other hammer toe(s) (acquired), left foot M20.42 ; Pain in right toe(s) M79.674 ; Pain in left toe(s) M79.675 ; Unspecified atherosclerosis of [place] arteries of extremities, bilateral legs I70.203 and Acquired keratosis [keratoderma] palmaris et plantaris L85.1 [facility] [address] [place], [place] [id number] 07/01/2024 PARVIN CORDOVA Other hammer toe(s) (acquired), right foot M20.41 ; Tinea unguium B35.1 ; Other hammer toe(s) (acquired), left foot M20.42 ; Pain in right toe(s) M79.674 ; Pain in left toe(s) M79.675 ; Unspecified atherosclerosis of [place] arteries of extremities, bilateral legs I70.203 and Acquired keratosis [keratoderma] palmaris et plantaris L85.1 [facility] [address] [place], [place] [id number] 09/09/2024 CYNDY OMER Tinea unguium B35.1 ; Pain in right foot M79.671 ; Pain in left foot M79.672 ; Atherosclerosis of [place] arteries of extremities with intermittent claudication, bilateral legs I70.213 and Acquired keratosis [keratoderma] palmaris et plantaris [...] regarding both OTC and prescription treatments. 04/29/2024 Tinea unguium (ICD-10 - B35.1) Aseptic [...] prescription treatments. 04/29/2024 Other hammer toe(s) (acquired), right foot [...] were discussed, but conservative options were emphasized. 09/09/2024 Tinea unguium (ICD-10 - B35.1) Nails 1-5 Bilateral were debrided extensively with nail nippers and emery board, reducing length and girth to pink healthy tissue with any subungual debris and necrotic tissue removed 09/09/2024 Pain in right foot (ICD-10 - M79.671) 07/01/2024 Other hammer toe(s) (acquired), right foot [...] educated regarding both OTC and prescription treatments. 12/18/2023 Tinea unguium (ICD-10 - B35.1) Aseptic [...] educated regarding both OTC and prescription treatments. 12/18/2023 Other hammer toe(s) (acquired), right foot [...] were emphasized. 12/18/2023 Other hammer toe(s) (acquired), left foot (ICD-10 - M20.42) 07/01/2024 Other hammer toe(s) (acquired), left foot (ICD-10 - M20.42) 09/09/2024 Pain in left foot (ICD-10 - M79.672) 04/29/2024 Other hammer toe(s) (acquired), left foot (ICD-10 - M20.42) 02/26/2024 Other hammer toe(s) (acquired), left foot (ICD-10 - M20.42) 02/26/2024 Pain in right toe(s) (ICD-10 - M79.674) 04/29/2024 Pain in right toe(s) (ICD-10 - M79.674) 09/09/2024 Atherosclerosis of [place] arteries of extremities with intermittent claudication, bilateral legs (ICD-10 - I70.213) 07/01/2024 Pain in right toe(s) (ICD-10 - M79.674) 12/18/2023 Pain in right toe(s) (ICD-10 - M79.674) 12/18/2023 Pain in left toe(s) (ICD-10 - M79.675) 07/01/2024 Pain in left toe(s) (ICD-10 - M79.675) 09/09/2024 Acquired keratosis [keratoderma] palmaris et plantaris (ICD-10 - L85.1) A total of 1 corns or calluses, as described in the note above, were cut and pared utilizing a #15 blade 04/29/2024 Pain in left toe(s) (ICD-10 - M79.675) 02/26/2024 Pain in left toe(s) (ICD-10 - M79.675) 04/29/2024 Unspecified atherosclerosis of [place] arteries of extremities, bilateral legs (ICD-10 - I70.203) Patient educated on risks and aggravating factors of PVD, including conservative treatment options such as a diet and exercise regimen to aid in slowing progression of vascular disease 02/26/2024 Unspecified atherosclerosis of [place] arteries of extremities, bilateral legs (ICD-10 - I70.203) Patient educated on risks and aggravating factors of PVD, including conservative treatment options such as a diet and exercise regimen to aid in slowing progression of vascular disease 07/01/2024 Unspecified atherosclerosis of [place] arteries of extremities, bilateral legs (ICD-10 - I70.203) Patient educated on risks and aggravating factors of PVD, including conservative treatment options such as a diet and exercise regimen to aid in slowing progression of vascular disease 12/18/2023 Unspecified atherosclerosis of [place] arteries of extremities, bilateral legs (ICD-10 - I70.203) Patient educated on risks and aggravating factors of PVD, including conservative treatment options such as a diet and exercise regimen to aid in slowing progression of vascular disease 12/18/2023 Acquired keratosis [keratoderma] palmaris et plantaris [...] and no infection or drainage was noted. 04/29/2024 Acquired keratosis [keratoderma] palmaris et plantaris [...] Treatment Next Appt Details Provider Name:CYNDY OMER, 10:30:00 AM, [address] [place] [address], [id number], Insurance Providers Payer Name Payer Address Payer Phone Subscriber Number Group Number Insured Name Patient Relationship to Insured Coverage Start Date Coverage End Date Medicare Part B [facility] [address] [place] [phone] [id number] BRENDA WILSON Self - patient is the insured [address] [address] [id number] BRENDA WILSON Self - patient is the insured
--- OUTSIDE RECORDS SUMMARY | 2024-11-02 12:24 | XMS_ITS ---
Author Organization [facility] Address [address] [place], [place] [id number] Care Team Providers Care Metal Hanger Name Role Phone CYNDY DUTTON Unavailable [phone] Casa Encarnacion Unavailable Unavailable LUCYMaryCYNDY Unavailable [phone] REASON FOR VISIT Patient presents for at-risk foot care . The patient has painful toenails and calluses that are causing difficulty with ambulation and shoegear. The onset is gradual Medications Medication SIG (Take, Route, Frequency, Duration) Notes Start Date End Date Status chlordiazepoxide hydrochloride 5 MG Oral Capsule ORAL chlordiazepoxide hydrochloride 5 MG Oral CapsuleOriginal Medicationchlordiazepoxide hydrochloride 5 MG Oral Capsule *Reorder from [employer] for eRx and Interaction Alerts* 09/02/20 12 Active ciclopirox 80 MG/ML Topical Solution ciclopirox 80 MG/ML Topical SolutionOriginal Medicationciclopirox 80 MG/ML Topical Solution *Reorder from [employer] for eRx and Interaction Alerts* 12/17/19 15 Active Atenolol 25 MG Oral Tablet ORAL atenolol 25 MG Oral TabletOriginal Medicationatenolol 25 MG Oral Tablet *Reorder from [employer] for eRx and Interaction Alerts* 12/20/19 15 Active Lisinopril 10 MG Oral Tablet ORAL lisinopril 10 MG Oral TabletOriginal Medicationlisinopril 10 MG Oral Tablet *Reorder from [employer] for eRx and Interaction Alerts* 09/02/20 12 Active Metoprolol Tartrate 25 MG Oral Tablet ORAL metoprolol tartrate 25 MG Oral TabletOriginal Medicationmetoprolol tartrate 25 MG Oral Tablet *Reorder from [employer] for eRx and Interaction Alerts* 09/02/20 12 Active Encounters Encounter Location Date Provider Diagnosis [facility] [address] [place], [place] [id number] 09/09/2024 CYNDY AYALAMary Tinea unguium B35.1 ; Pain in right foot M79.671 ; Pain in left foot M79.672 ; Atherosclerosis of [place] arteries of extremities with intermittent claudication, bilateral legs I70.213 and Acquired keratosis [keratoderma] palmaris et plantaris L85.1 Assessments Encounter Date Diagnosis (ICD Code) Assessment Notes Treatment Notes Treatment Clinical Notes Section Notes 09/09/2024 Tinea unguium (ICD-10 - B35.1) Nails 1-5 Bilateral were debrided extensively with nail nippers and emery board, reducing length and girth to pink healthy tissue with any subungual debris and necrotic tissue removed 09/09/2024 Pain in right foot (ICD-10 - M79.671) 09/09/2024 Pain in left foot (ICD-10 - M79.672) 09/09/2024 Atherosclerosis of [place] arteries of extremities with intermittent claudication, bilateral legs (ICD-10 - I70.213) 09/09/2024 Acquired keratosis [keratoderma] palmaris et plantaris (ICD-10 - L85.1) A total of 1 corns or calluses, as described in the note above, were cut and pared utilizing a #15 blade Plan Of Treatment Treatment Notes Assessment Notes Tinea unguium Nails 1-5 Bilateral were debrided extensively with nail nippers and emery board, reducing length and girth to pink healthy tissue with any subungual debris and necrotic tissue removed Acquired keratosis [keratode rma] palmaris et plantaris A total of 1 corns or calluses, as described in the note above, were cut and pared utilizing a #15 blade Next Appt Details Follow Up: 10 - 12 weeks, Re ason: At-Risk Foot care, sooner if problems develop. Provider Name:CYNDY OMER, 10:30:00 AM, [address] [place] [address], [id number], Progress Notes * BRENDA WILSON MDOB: 7 (89 yo F)Acc No.[id number]:09/09/2024 Patient: BRENDA MONREAL Provider: Juan Carlos Omer DPM :1935 A ge:89 Y S ex:Female Date:09/09/2024 Address:[address] [place] [address], [id number] Subjective: * Chief Complaints: * Cinthia edmonds presents for at-risk foot care . The patient has painful toenails and calluses that are causing difficulty with ambulation and shoegear. The onset is gradual * HPI: H PI: General care Cinthia edmonds presents to the office for at risk foot care. Patient states that their nails are thickened, elongated and painful. Patient states that it is aggravated by shoe gear. Onset is gradual. Patient denies being diabetic., Patient denies taking prescription blood thinners but does take a daily aspirin., Date last seen by Dr. Encarnacion was 08/2024., Initials [facility]. * Medical History: * Surgical History: * Hospitalization/Major Diagno stic Procedure: * Medications: T akingAtenolol 25 MG Oral Tablet ORAL , Notes to Pharmacist: atenolol 25 MG Oral TabletOriginal Medicationatenolol 25 MG Oral Tablet *Reorder from [facility] for eRx and Interaction Alerts*Lisinopril 10 MG Oral Tablet ORAL , Notes to Pharmacist: lisinopril 10 MG Oral TabletOriginal Medicationlisinopril 10 MG Oral Tablet *Reorder from [facility] for eRx and Interaction Alerts*Metoprolol Tartrate 25 MG Oral Tablet ORAL , Notes to Pharmacist: metoprolol tartrate 25 MG Oral TabletOriginal Medicationmetoprolol tartrate 25 MG Oral Tablet *Reorder from [facility] for eRx and Interaction Alerts*chlordiazepoxide hydrochloride 5 MG Oral Capsule ORAL , Notes to Pharmacist: chlordiazepoxide hydrochloride 5 MG Oral CapsuleOriginal Medicationchlordiazepoxide hydrochloride 5 MG Oral Capsule *Reorder from [facility] for eRx and Interaction Alerts*ciclopirox 80 MG/ML Topical Solution , Notes to Pharmacist: ciclopirox 80 MG/ML Topical SolutionOriginal Medicationciclopirox 80 MG/ML Topical Solution *Reorder from [facility] for eRx and Interaction Alerts*Medication List reviewed and reconciled with the patientTaking Atenolol 25 MG Oral Tablet ORAL , Notes to Pharmacist: atenolol 25 MG Oral TabletOriginal Medicationatenolol 25 MG Oral Tablet *Reorder from [facility] for eRx and Interaction Alerts*Taking Lisinopril 10 MG Oral Tablet ORAL , Notes to Pharmacist: lisinopril 10 MG Oral TabletOriginal Medicationlisinopril 10 MG Oral Tablet *Reorder from [facility] for eRx and Interaction Alerts*Taking Metoprolol Tartrate 25 MG Oral Tablet ORAL , Notes to Pharmacist: metoprolol tartrate 25 MG Oral TabletOriginal Medicationmetoprolol tartrate 25 MG Oral Tablet *Reorder from [facility] for eRx and Interaction Alerts*Taking chlordiazepoxide hydrochloride 5 MG Oral Capsule ORAL , Notes to Pharmacist: chlordiazepoxide hydrochloride 5 MG Oral CapsuleOriginal Medicationchlordiazepoxide hydrochloride 5 MG Oral Capsule *Reorder from [facility] for eRx and Interaction Alerts*Taking ciclopirox 80 MG/ML Topical Solution , Notes to Pharmacist: ciclopirox 80 MG/ML Topical SolutionOriginal Medicationciclopirox 80 MG/ML Topical Solution *Reorder from [facility] for eRx and Interaction Alerts*Medication List reviewed and reconciled with the patient Objective: * Vitals: * Examination: P hysical Examination: General appearance: A lert, pleasant, well-nourished and in no acute distress. D ermatologic: Skin findings: S kin is thin, atrophic and lacking pedal hair. Hypertrophic / hyperkeratotic lesion: p lantar aspect of the right 1st metatarsal head. Nail pathology: N ails 1, 2, 3, 4, and 5 bilateral are elongated, thick, discolored, and dystrophic with subungual debris. They are painful to palpation. ? V ascular: Dorsalis pedis pulse: 1 /4 b ilateral. Posterior tibial pulse: 0 /4 bilateral. Capillary refill: g reater than 3 seconds. Edema: N o edema bilateral. N eurologic: Gross sensation G rossly intact to light touch. There is negative Tinel's sign. M usculoskeletal: Muscle Strength M uscle strength is 5/5 in regards to dorsiflexion, plantarflexion, inversion, and eversion in bilateral lower extremities. ? Assessment: * Assessment: 1. T carrolla unguium - B35.1 (Primary) 2 . P ain in right foot - M79.671 ? 3 . P ain in left foot - M79.672 4 . 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 Acquired keratosis [keratoderma] palmaris et plantaris - L85.1 Plan: * Treatment: 2. A cquired keratosis [keratoderma] palmaris et plantaris Notes: A total of 1 corns or calluses, as described in the note above, were cut and pared utilizing a #15 blade * Procedure Codes: 1 1056 TRIM SKIN LESIONS, 2 TO 4, Modifiers: Q8 01688 DEBRIDE NAIL, 6 OR MORE, Modifiers: 59 , Q8 * Follow Up: 1 0 - 12 weeks (Reason: At-Risk Foot care, sooner if problems develop.) * Billing Information: * Visit Code: * Procedure Codes: 03545 TRIM SKIN LESIONS, 2 TO 4. Modifiers: Q8 32604 DEBRIDE NAIL, 6 OR MORE. Modifiers: 59, Q8 * SURVEY TECHNICIAN Sign off status: Completed true * Provider: Juan Carlos Omer DPM Date: 0 09/09/2024 Generated for Jonnathan henao/Cathy/Armand on: 0 11/02/2024 12:24 PM LAND SURVEY TECHNICIAN History and Physical Notes * HPI (History [...] Date last seen by Dr. Encarnacion was 08/2024., Initials [facility] Examination Category Sub-Category Detail Notes Category Not es Dermatologic Skin findings: Skin is thin, at rophic and lacking pedal hair Nail pathology: Nails 1, 2, 3, 4, an d 5 bilateral are elongated, thick, discolored, and dystrophic with subungual debris. They are painful to palpation Hypertrophic / hyperkeratotic lesion: pl cameron aspect of the right 1st metatarsal head Neurologic Gross sensation Grossly intact t o light touch. There is negative Tinel's sign Vascular Dorsalis pedis pulse: 1/4 bilateral Edema: No edema bilateral Capillary refill: greater than 3 secon ds Posterior tibial pulse: 0/4 bilateral Physical Examination General appearance: Alert, pleasant, well-nourished and in no acute distress Musculoskeletal Muscle Strength Muscle strength is 5/5 in regards to dorsiflexion, plantarflexion, inversion, and eversion in bilateral lower extremities
--- OUTSIDE RECORDS SUMMARY | 2024-11-02 12:24 | XMS_ITS | Clinical Summary ---
Author Organization [facility] Address [address] [place] [address] Care Team Providers Care Short Range Air Defense Artillery Name Role Phone Casa Encarnacion MD Primary Care Provider [phone] Allergies Active Allergy Reactions Criticality Noted Date [...] Diagnosed Date Confusion 01/28/2020 Acute ischemic stroke ([facility]) 01/26/20 Family History Medical History Relation [...] 62 01/21/2024 10:50 AM CDT Temperature 36.1 C (97 F) 01/21/2024 10:50 AM CDT Respiratory Rate 16 [...] Adult (#1) 2024 06/08/2014, 05/31/2013, 06/25/2012 Meningococcal B Vaccine Aged Out No l onger eligible based on patient's age to complete this topic Meningococcal Vaccine Aged Out No adam yuniel eligible based on patient's age to complete this topic RSV Immunizations Under 20 Months Aged Out No longer eligible b ased on patient's age to complete this topic Medical Devices Implanted Type Area Automotive Service Assistant Device Identifier Shelf Expiration Date Model / Serial / Lot Iol Tecnis Simplicity Dcb00 - [id number] Implanted:Qty: 1 on 01/21/2024 by Catherine Newman MD at [facility] Lens Left: Eye [employer] [id number] 05/05/2026 DCB00 / [id number] / DCB00 Tecnis 1-Piece Iol Implanted:Qty: 1 on 12/24/2023 by Catherine Newman MD at [facility] Right: Eye [employer] [id number] 04/14/2026 DCB00 / [id number] / [id number] Insurance MEDICARE 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
--- OUTSIDE RECORDS SUMMARY | 2024-11-02 12:24 | XMS_ITS | Clinical Summary ---
Author Organization [facility] Address [address] [facility] [place] [address] Phone Care Team Providers Care Inspector Brake Lining Name Role Phone Casa Encarnacion MD Primary Care Provider + Allergies No known active allergies Medications chlordiazePOXID E (LIBRIUM) 5 mg capsule 5 Active mirtazapine (REMERON) 30 mg tablet 5 Active PSYLLIUM HUSK (METAMUCIL ORAL) Take by mouth. Activ e atenolol (TENORMIN) 25 mg tablet Take 25 mg by mouth daily. Active estradiol (ESTRACE) 0.01% (0.1 mg/g) vaginal cream Insert vaginally daily. Active nystatin (MYCOSTATIN) 100,000 unit/gram OintmentIndicat ions:Acute vulvitis,Yeast infection of the vagina Apply to affected area 2 times daily. 30 Gram 0 6 Active fluconazole (DIFLUCAN) 200 mg tablet Take 1 Tablet (200 mg) by mouth daily Take one tablet every other day for 3 doses.. 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 Immunizations Immunization Administration Dates Next Due Influenza Seasonal Unspecified [...] drink = 0.6 oz pur e alcohol) Comments No Sex and Gender Information Value Date Recorded Sex Assigned at Not on file Legal Sex Female 9:11 AM TITLE I PARAPROFESSIONAL Gender Identity Not on file Sexual Orientation Not on file Occupation Industry Job Start Date Job End Date retired Not on file Not on file Not on file Last Filed Vital Signs Vital Sign Reading Time Taken Comments Blood Pressure 140/82 11/08/2015 3:33 PM TITLE I PARAPROFESSIONAL Pulse - - Temperature - - Respiratory Rate - - Oxygen Saturation - - Inhaled Oxygen Concentration - - Weight 59 kg (130 lb) 11/08/2015 3:33 PM TITLE I PARAPROFESSIONAL Height 167.6 cm (5' 6 ) 11/08/2015 3:33 PM TITLE I PARAPROFESSIONAL Body Mass Index 20.98 11/08/2015 3:33 PM TITLE I PARAPROFESSIONAL Plan of Treatment Health Maintenance Due Date Last Done Comments DTAP/TDAP/TD VACCINES (1 - Tdap) 02/23/1954 PNEUMOCOCCAL VACCINE 65+ YEA RS (1 of 1 - PCV) 1987 09/08/2009 ZOSTER VACCINE (1 of 2) 1987 RSV VACCINE (60+ or ) (1 - 1-dose 75+ series) 02/23/2012 BREAST CANCER SCREENING 09/08/2013 09/08/19 13 (Previously completed) INFLUENZA VACCINE (#1) 2024 06/08/2014 OSTEOPOROSIS SCREENING Completed 7, 04/22/2014, 09/08/2013 (Previously completed) Insurance MEDICARE PART A AND B [facility] Care Teams Inspector Brake Lining Relationship Specialty Start Date End Date Casa Encarnacion MD [address] [place] [phone] PCP - General Internal Medicine 10/12/14
--- OUTSIDE RECORDS SUMMARY | 2024-11-02 12:24 | XMS_ITS | Referral Summary ---
Author Organization [facility] Address [address] [place] [address] Care Team Providers Care Vice President Quality Assurance Name Role Phone Casa Encarnacion MD Primary Care Provider Source Comments [facility],non-owned Affiliates and Associated Physician Practices is amultiple site organization consisting of ambulatory clinics and hospital sitesin [place], [place], [place] and [place]. This disclosure is being madepursuant to the Care Everywhere program and may not contain all information available regarding this patient. Last updated 18.[facility] Encounters Date Type Department Care Team Description 08/09/2024 Refill [facility] - HEMODIALYSIS PATIENT CARE SPECIALIST [address] [place] [address] Aye Dao MD Refill Request 08/09/2024 Telephone [facility] - HEMODIALYSIS PATIENT CARE SPECIALIST [address] [place] [address] Aye Dao MD Medication Request [...] be different from the original. Patient uses [employer]. 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
--- OUTSIDE RECORDS SUMMARY | 2024-11-02 12:24 | XMS_ITS ---
Author Organization [facility] Address [address] [place], [place] [address] Care Team Providers Care President Educational Institution Name Role Phone CYNDY DUTTON Unavailable [phone] Casa Encarnacion Unavailable Unavailable PARVIN CORDOVA Unavailable [phone] REASON FOR VISIT *General care Medications Medication SIG (Take, Route, Frequency, Duration) Notes Start Date End Date Status Metoprolol Tartrate 25 MG Oral Tablet ORAL metoprolol tartrate 25 MG Oral TabletOriginal Medicationmetoprolol tartrate 25 MG Oral Tablet *Reorder from [facility] for eRx and Interaction Alerts* 09/02/20 12 Active Lisinopril 10 MG Oral Tablet ORAL lisinopril 10 MG Oral TabletOriginal Medicationlisinopril 10 MG Oral Tablet *Reorder from [facility] for eRx and Interaction Alerts* 09/02/20 12 Active Atenolol 25 MG Oral Tablet ORAL atenolol 25 MG Oral TabletOriginal Medicationatenolol 25 MG Oral Tablet *Reorder from [facility] for eRx and Interaction Alerts* 12/20/19 15 Active ciclopirox 80 MG/ML Topical Solution ciclopirox 80 MG/ML Topical SolutionOriginal Medicationciclopirox 80 MG/ML Topical Solution *Reorder from [facility] for eRx and Interaction Alerts* 12/17/19 15 Active chlordiazepoxide hydrochloride 5 MG Oral Capsule ORAL chlordiazepoxide hydrochloride 5 MG Oral CapsuleOriginal Medicationchlordiazepoxide hydrochloride 5 MG Oral Capsule *Reorder from [facility] for eRx and Interaction Alerts* 09/02/20 12 Active Encounters Encounter Location Date Provider Diagnosis [address] [id number] 04/29/2024 PARVIN CORDOVA Other hammer toe(s) (acquired), right foot M20.41 ; Tinea unguium B35.1 ; Other hammer toe(s) (acquired), left foot M20.42 ; Pain in right toe(s) M79.674 ; Pain in left toe(s) M79.675 ; Unspecified atherosclerosis of [place] arteries of extremities, bilateral legs I70.203 and [...] (ICD-10 - M79.675) 04/29/2024 Unspecified atherosclerosis of [place] arteries of extremities, bilateral legs (ICD-10 - [...] OTC and prescription treatments. Unspecified atherosclerosis of [place] arteries of extremities, bilateral legs Patient educated [...] Months, Reason: Provider Name:CYNDY OMER, 10:30:00 AM, [address] [place] [address], [id number], Progress Notes * PARAMJITJEANA BRENDA MDOB: (89 yo F)Acc No.[id number]:04/29/2024 Patient: BRENDA MONREAL Provider: Ward CORDOVA :1935 A ge:89 Y S ex:Female Date:04/29/2024 Address:[address] [id number] Subjective: * Chief Complaints: * 1 . [...] seen by Dr. Encarnacion was 03/2024., [facility] * ROS: G eneral / Constitutional: Patient denies w eakness. R espiratory: Patient denies c hronic cough, shortness of breath, sputum production. C ardiovascular: Patient denies c hest pain, history of [place], irregular heartbeat. M usculoskeletal: Patient complains of [...] Medicationatenolol 25 MG Oral Tablet *Reorder from [facility] for eRx and Interaction Alerts*, Taking Lisinopril 10 MG Oral Tablet ORAL , Notes to Pharmacist: lisinopril 10 MG Oral TabletOriginal Medicationlisinopril 10 MG Oral Tablet *Reorder from [facility] for eRx and Interaction Alerts*, Taking Metoprolol Tartrate 25 MG Oral Tablet ORAL , Notes to Pharmacist: metoprolol tartrate 25 MG Oral TabletOriginal Medicationmetoprolol tartrate 25 MG Oral Tablet *Reorder from [facility] for eRx and Interaction Alerts*, Taking chlordiazepoxide hydrochloride 5 MG Oral Capsule ORAL , Notes to Pharmacist: chlordiazepoxide hydrochloride 5 MG Oral CapsuleOriginal Medicationchlordiazepoxide hydrochloride 5 MG Oral Capsule *Reorder from [facility] for eRx and Interaction Alerts*, Taking ciclopirox 80 MG/ML Topical Solution , Notes to Pharmacist: ciclopirox 80 MG/ML Topical SolutionOriginal Medicationciclopirox 80 MG/ML Topical Solution *Reorder from [facility] for eRx and Interaction Alerts* Objective: * Examination: P hysical Examination: V ascular: [...] hammer toe(s) (acquired), left foot - M20.42 4 . P ain in right toe(s) - M79.674 5 . P ain in left toe(s) - M79.675 6 . U nspecified atherosclerosis of [place] arteries of extremities, bilateral legs - I70.203 [...] were emphasized. 3. U nspecified atherosclerosis of [place] arteries of extremities, bilateral legs Notes: Patient [...] LESIONS, 2 TO 4, Modifiers: Q8 , 42756 DEBRIDE NAIL, 6 OR MORE, Modifiers: 59 , Q8 * Follow Up: 3 Months * Billing Information: * Visit Code: * Procedure Codes: 23609 TRIM SKIN LESIONS, 2 TO 4. Modifiers: Q8 91102 DEBRIDE NAIL, 6 OR MORE. 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
== END 2024-11-02 10:33 | disposition home or self-care (01) ==
PROVIDERS: PCP Internal Medicine; Visit Provider Internal Medicine
DX: D50.9 Iron deficiency anemia, unspecified (principal)
CPT/HCPCS: 36415; 82607; 82728; 83540; 85027

== ENCOUNTER 2024-11-16 13:17 | Outpatient (CLI) | payer MEDICARE, SELFPAY ==
[2024-11-16 13:56] LABS: Anion Gap 4 mmol/L (4-12); Blood Urea Nitrogen 21 mg/dL (7-18); Carbon Dioxide 32 mmol/L (21-32); Chloride 110 mmol/L (98-108); Potassium 4.3 mmol/L (3.5-5.1); Sodium 146 mmol/L (136-145)
[2024-11-16 14:09] LABS: Calcium 10.2 mg/dL (8.5-10.1); Estimated Glomerular Filt Rate 51; Glucose 108 mg/dL (70-99); Osmolality Calculated 306 mOsm/kg (285-295)
--- OUTSIDE RECORDS SUMMARY | 2024-11-16 14:45 | XMS_ITS | Clinical Summary ---
Author Organization [facility] Address [address] [place] [place] [address] Care Team Providers Care Human Resources Support Specialist Name Role Phone Casa Encarnacion MD Primary Care Provider [phone] Source Comments [facility],non-owned Affiliates and Associated Physician Practices is amultiple site organization consisting of ambulatory clinics and hospital sitesin [place], [place], [place] and [place]. This disclosure is being madepursuant to the Care Everywhere program and may not contain all information available regarding this patient. Last updated 18.[facility] Allergies Active Allergy Reactions Criticality Noted Date [...] be different from the original. Patient uses [employer] 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
--- OUTSIDE RECORDS SUMMARY | 2024-11-16 14:45 | XMS_ITS ---
Author Organization [facility] Address [address] [place], [place] [id number] Care Team Providers Care Commercial Kitchen Service Technician Name Role Phone CYNDY DUTTON Unavailable [phone] Casa Encarnacion Unavailable Unavailable PARVIN CORDOVA Unavailable [phone] REASON FOR VISIT *General care Medications Medication SIG (Take, Route, Frequency, Duration) Notes Start Date End Date Status chlordiazepoxide hydrochloride 5 MG Oral Capsule ORAL chlordiazepoxide hydrochloride 5 MG Oral CapsuleOriginal Medicationchlordiazepoxide hydrochloride 5 MG Oral Capsule *Reorder from [facility] and Interaction Alerts* 09/02/20 12 Active Metoprolol Tartrate 25 MG Oral Tablet ORAL metoprolol tartrate 25 MG Oral TabletOriginal Medicationmetoprolol tartrate 25 MG Oral Tablet *Reorder from [facility] Interaction Alert[facility]* 09/02/20 12 Active ciclopirox 80 MG/ML Topical Solution ciclopirox 80 MG/ML Topical SolutionOriginal Medicationciclopirox 80 MG/ML Topical Solution *Reorder from [facility] Interaction Alert[facility]* 12/17/19 15 Active Lisinopril 10 MG Oral Tablet ORAL lisinopril 10 MG Oral TabletOriginal Medicationlisinopril 10 MG Oral Tablet *Reorder from [facility] Interaction Alert[facility]* 09/02/20 12 Active Atenolol 25 MG Oral Tablet ORAL atenolol 25 MG Oral TabletOriginal Medicationatenolol 25 MG Oral Tablet *Reorder from [facility] Interaction Alert[facility]* 12/20/19 15 Active Encounters Encounter Location Date Provider Diagnosis [address] [id number] 07/01/2024 PARVIN CORDOVA Other hammer toe(s) (acquired), right foot M20.41 ; Tinea unguium B35.1 ; Other hammer toe(s) (acquired), left foot M20.42 ; Pain in right toe(s) M79.674 ; Pain in left toe(s) M79.675 ; Unspecified atherosclerosis of chickaloon arteries of extremities, bilateral legs I70.203 and [...] (ICD-10 - M79.675) 07/01/2024 Unspecified atherosclerosis of chickal[place] arteries of extremities, bilateral legs (ICD-10 - [...] OTC and prescription treatments. Unspecified atherosclerosis of chickaloon arteries of extremities, bilateral legs Patient educated [...] Details Follow Up: 3 Months, Reason: Provider Name:BOGDAN REEVES, 01/13/2025 10:50:00 AM, [address] [place] [address], [phone], Progress Notes * PARAMJITBRENDA HILLS MDOB: (89 yo F)Acc No.[id number]:07/01/2024 Patient: BRENDA MONREAL Provider: Ward CORDOVA :1935 A ge:89 Y S ex:Female Date:07/01/2024 Address:[address] [facility] Subjective: * Chief Complaints: * 1 . [...] seen by Dr. Encarnacion was 01/2024., [facility]. * ROS: G eneral / Constitutional: Patient denies w eakness. R espiratory: Patient denies c hronic cough, shortness of breath, sputum production. C ardiovascular: Patient denies c hest pain, history of AL, irregular heartbeat. M usculoskeletal: Patient complains of [...] Medicationatenolol 25 MG Oral Tablet *Reorder from [facility] for eRx and Interaction Alerts*, Taking Lisinopril 10 MG Oral Tablet ORAL , Notes to Pharmacist: lisinopril 10 MG Oral TabletOriginal Medicationlisinopril 10 MG Oral Tablet *Reorder from [facility] for [facility]Rx and Interaction Alerts*, Taking Metoprolol Tartrate 25 MG Oral Tablet ORAL , Notes to Pharmacist: metoprolol tartrate 25 MG Oral TabletOriginal Medicationmetoprolol tartrate 25 MG Oral Tablet *Reorder from [facility] for eRx and Interaction Alerts*, Taking chlordiazepoxide hydrochloride 5 MG Oral Capsule ORAL , Notes to Pharmacist: chlordiazepoxide hydrochloride 5 MG Oral CapsuleOriginal Medicationchlordiazepoxide hydrochloride 5 MG Oral Capsule *Reorder from [facility] for eRx and Interaction Alerts*, Taking ciclopirox 80 MG/ML Topical Solution , Notes to Pharmacist: ciclopirox 80 MG/ML Topical SolutionOriginal Medicationciclopirox 80 MG/ML Topical Solution *Reorder from [facility] for eRx and Interaction Alerts* Objective: [...] M79.675 6 . U nspecified atherosclerosis of chickal[place] arteries of extremities, bilateral legs - I70.203 [...] were emphasized. 3. U nspecified atherosclerosis of chickaloon arteries of extremities, bilateral legs Notes: Patient [...] LESIONS, 2 TO 4, Modifiers: Q8 , 91151 DEBRIDE NAIL, 6 OR MORE, Modifiers: 59 , Q8 * Follow Up: 3 Months * Billing Information: * Visit Code: * Procedure Codes: 67998 TRIM SKIN LESIONS, 2 TO 4. Modifiers: Q8 56172 DEBRIDE NAIL, 6 OR MORE. Modifiers: 59, Q8 * [employer] Sign off status: Completed true * Provider: Ward CORDOVA Date: 1 Generated for Jonnathan henao/Cathy/eTranlenaitting on: 0 11/16/2024 02:45 PM CDT History and Physical Notes * HPI (History [...]
--- OUTSIDE RECORDS SUMMARY | 2024-11-16 14:45 | XMS_ITS | Clinical Summary ---
Author Organization [facility] Address [address] [place] [address] Care Team Providers Care Harvest Contractor Name Role Phone Casa Encarnacion MD Primary Care Provider [phone] Allergies Active Allergy Reactions Criticality Noted Date [...] Diagnosed Date Confusion 01/28/2020 Acute ischemic stroke ([facility]/HCC [facility]) 01/26/20 Family History Medical History [...] this topic Medical Devices Implanted Type Area Product Applications Engineer Device Identifier Shelf Expiration Date Model / Serial / Lot Iol Tecnis Simplicity Dcb00 - [id number] Implanted:Qty: 1 on 01/21/2024 by Catherine Newman MD at [facility] Lens Left: Eye [employer] [id number] 05/05/2026 DCB00 / [id number] / DCB00 Tecnis 1-Piece Iol Implanted:Qty: 1 on 12/24/2023 by Catherine Newman MD at [facility] Right: Eye [employer] [id number] 04/14/2026 DCB00 / [id number] / [id number] Insurance MEDICARE 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
--- OUTSIDE RECORDS SUMMARY | 2024-11-16 14:45 | XMS_ITS | Patient Health Record ---
Author Organization [facility] Address [address] [place], [place] [address] Care Team Providers Care Import Customer Service Manager Name Role Phone CYNDY DUTTON Unavailable [phone] Casa Encarnacion Unavailable Unavailable CYNDY OMER Unavailable [phone] PARVIN CORDOVA Unavailable [phone] Allergies No Known Allergies Reason For Referral No Information Medications Medication SIG (Take, Route, Frequency, Duration) Notes Start Date End Date Status Metoprolol Tartrate 25 MG Oral Tablet ORAL metoprolol tartrate 25 MG Oral TabletOriginal Medicationmetoprolol tartrate 25 MG Oral Tablet *Reorder from [facility] for eRx and Interaction Alerts* 09/02/20 12 Active Lisinopril 10 MG Oral Tablet ORAL lisinopril 10 MG Oral TabletOriginal Medicationlisinopril 10 MG Oral Tablet *Reorder from [facility] for eRx and Interaction Alerts* 09/02/20 12 Active Atenolol 25 MG Oral Tablet ORAL atenolol 25 MG Oral TabletOriginal Medicationatenolol 25 MG Oral Tablet *Reorder from [facility] for eRx and Interaction Alerts* 12/20/19 15 Active ciclopirox 80 MG/ML Topical Solution ciclopirox 80 MG/ML Topical SolutionOriginal Medicationciclopirox 80 MG/ML Topical Solution *Reorder from [facility] for eRx and Interaction Alerts* 12/17/19 15 Active chlordiazepoxide hydrochloride 5 MG Oral Capsule ORAL chlordiazepoxide hydrochloride 5 MG Oral CapsuleOriginal Medicationchlordiazepoxide hydrochloride 5 MG Oral Capsule *Reorder from [facility] for eRx and Interaction Alerts* 09/02/20 12 Active Immunizations Vaccine Route Administration Date Status Comme nts Influenza, high dose seasonal Unknown 06/13/2023 Admini stered Vital Signs Height-cm 162.56 cm 02/26/2024 Weight-kg 61.69 kg 02/26/2024 Height 64.00 in 02/26/2024 Weight 136 lbs 02/26/2024 BMI 23.34 kg/m2 02/26/2024 Encounters Encounter Location Date Provider Diagnosis [address] [id number] 11/11/2024 CYNDY LUCYK Tinea unguium B35.1 ; Acquired keratosis [keratoderma] palmaris et plantaris L85.1 ; Atherosclerosis of [place] arteries of extremities with intermittent claudication, bilateral legs I70.213 ; Pain in right foot M79.671 and Pain in left foot M79.672 [facility] [address] [place], [place] [id number] 12/18/2023 PARVIN CORDOVA Other hammer toe(s) (acquired), right foot M20.41 ; Tinea unguium B35.1 ; Other hammer toe(s) (acquired), left foot M20.42 ; Pain in right toe(s) M79.674 ; Pain in left toe(s) M79.675 ; Unspecified atherosclerosis of [place] arteries of extremities, bilateral legs I70.203 and Acquired keratosis [keratoderma] palmaris et plantaris L85.[address] [id number] 02/26/2024 PARVIN CORDOVA Other hammer toe(s) (acquired), right foot M20.41 ; Tinea unguium B35.1 ; Other hammer toe(s) (acquired), left foot M20.42 ; Pain in right toe(s) M79.674 ; Pain in left toe(s) M79.675 ; Unspecified atherosclerosis of [place] arteries of extremities, bilateral legs I70.203 and Acquired keratosis [keratoderma] palmaris et plantaris L85.[address] [id number] 04/29/2024 PARVIN CORDOVA Other hammer toe(s) (acquired), right foot M20.41 ; Tinea unguium B35.1 ; Other hammer toe(s) (acquired), left foot M20.42 ; Pain in right toe(s) M79.674 ; Pain in left toe(s) M79.675 ; Unspecified atherosclerosis of [place] arteries of extremities, bilateral legs I70.203 and Acquired keratosis [keratoderma] palmaris et plantaris L85.[address] [id number] 07/01/2024 PARVIN CORDOVA Other hammer toe(s) (acquired), right foot M20.41 ; Tinea unguium B35.1 ; Other hammer toe(s) (acquired), left foot M20.42 ; Pain in right toe(s) M79.674 ; Pain in left toe(s) M79.675 ; Unspecified atherosclerosis of [place] arteries of extremities, bilateral legs I70.203 and Acquired keratosis [keratoderma] palmaris et plantaris L85.[address] [id number] 09/09/2024 CYNDY MOER Tinea unguium B35.1 ; Pain in right foot M79.671 ; Pain in left foot M79.672 ; Atherosclerosis of [place] arteries of extremities with intermittent claudication, bilateral legs I70.213 and Acquired keratosis [keratoderma] palmaris et plantaris L85.1 Assessments Encounter Date Diagnosis (ICD Code) Assessment Notes Treatment Notes Treatment Clinical Notes Section Notes 12/18/2023 Other hammer toe(s) (acquired), right foot [...] Pain in right foot (ICD-10 - M79.671) 11/11/2024 Tinea unguium (ICD-10 - B35.1) Nails 1-5 Bilateral were debrided extensively with nail nippers and emery board, reducing length and girth to pink healthy tissue with any subungual debris and necrotic tissue removed 11/11/2024 Acquired keratosis [keratoderma] palmaris et plantaris (ICD-10 - L85.1) A total of 1 corns or calluses, as described in the note above, were cut and pared utilizing a #15 blade 09/09/2024 Pain in left foot (ICD-10 - M79.672) 07/01/2024 Other hammer toe(s) (acquired), left foot (ICD-10 - M20.42) 04/29/2024 Other hammer toe(s) (acquired), left foot (ICD-10 - M20.42) 02/26/2024 Other hammer toe(s) (acquired), left foot (ICD-10 - M20.42) 12/18/2023 Other hammer toe(s) (acquired), left foot (ICD-10 - M20.42) 12/18/2023 Pain in right toe(s) (ICD-10 - M79.674) 02/26/2024 Pain in right toe(s) (ICD-10 - M79.674) 04/29/2024 Pain in right toe(s) (ICD-10 - M79.674) 07/01/2024 Pain in right toe(s) (ICD-10 - M79.674) 09/09/2024 Atherosclerosis of [place] arteries of extremities with intermittent claudication, bilateral legs (ICD-10 - I70.213) 11/11/2024 Atherosclerosis of [place] arteries of extremities with intermittent claudication, bilateral legs (ICD-10 - I70.213) 11/11/2024 Pain in right foot (ICD-10 - M79.671) 09/09/2024 Acquired keratosis [keratoderma] palmaris et plantaris (ICD-10 - L85.1) A total of 1 corns or calluses, as described in the note above, were cut and pared utilizing a #15 blade 07/01/2024 Pain in left toe(s) (ICD-10 - M79.675) 04/29/2024 Pain in left toe(s) (ICD-10 - M79.675) 02/26/2024 Pain in left toe(s) (ICD-10 - M79.675) 12/18/2023 Pain in left toe(s) (ICD-10 - M79.675) 02/26/2024 Unspecified atherosclerosis of [place] arteries of extremities, bilateral legs (ICD-10 - I70.203) Patient educated on risks and aggravating factors of PVD, including conservative treatment options such as a diet and exercise regimen to aid in slowing progression of vascular disease 12/18/2023 Unspecified atherosclerosis of [place] arteries of extremities, bilateral legs (ICD-10 - I70.203) Patient educated on risks and aggravating factors of PVD, including conservative treatment options such as a diet and exercise regimen to aid in slowing progression of vascular disease 07/01/2024 Unspecified atherosclerosis of [place] arteries of extremities, bilateral legs (ICD-10 - I70.203) Patient educated on risks and aggravating factors of PVD, including conservative treatment options such as a diet and exercise regimen to aid in slowing progression of vascular disease 04/29/2024 Unspecified atherosclerosis of [place] arteries of extremities, bilateral legs (ICD-10 - I70.203) Patient educated on risks and aggravating factors of PVD, including conservative treatment options such as a diet and exercise regimen to aid in slowing progression of vascular disease 11/11/2024 Pain in left foot (ICD-10 - M79.672) 04/29/2024 Acquired keratosis [keratoderma] palmaris et plantaris [...] Plan Of Treatment Next Appt Details Provider Name:BOGDAN REEVES, 01/13/2025 10:50:00 AM, [address] [place] [address], [phone], Insurance Providers Payer Name Payer Address Payer Phone Subscriber Number Group Number Insured Name Patient Relationship to Insured Coverage Start Date Coverage End Date Medicare Part B [facility] [address] [place] [phone] [id number] BRENDA WILSON Self - patient is the insured [address] [address] [id number] BRENDA WILSON Self - patient is the insured
--- OUTSIDE RECORDS SUMMARY | 2024-11-16 14:45 | XMS_ITS | Patient Health Summary ---
Author Organization [facility] Address [address] [place] [address] Care Team Providers Care Central Scheduler Name Role Phone Casa Encarnacion MD Primary Care Provider [phone] Note from [facility],non-owned Affiliates and Associated Physician Practices is amultiple site organization consisting of ambulatory clinics and hospital sitesin [place], [place], [place] and [place]. This disclosure is being madepursuant to the Care Everywhere program and may not contain all information available regarding this patient. 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 Scanned Document LAB - THERAPEUTIC DR MCCRAY MONITORING ORDERABLES * (ABNORMAL) CULTURE URINE (05/25/2019 11:13 AM CDT) Only the most recent of7 resultswithin the time period is included. Culture (A) [facility] Comment: CULTURE, URINE, ROUTINE MICRO NUMBER: [id number] TEST STATUS: FINAL SPECIMEN SOURCE: URINE SPECIMEN [...] cefuroxime, cephalexin and loracarbef. Test Performed at: [facility] [address] ZORAIDA TYLER MD Urine URINE SPECIMEN OBTAINED BY CLEAN CATCH PROCEDURE / Unknown 05/25/2019 11:13 AM CDT 05/25/2019 11:14 AM CDT Aye Dao MD LAB - MICROBIOLOGY ORDERABLES [address] [address] * SUSCEPTIBILITY YEAST (05/12/2019 2:12 PM CDT) [...] of this test have been determined by [facility], [employer]. This test not be used for diagnosis without confirmation by other medically established means. Test Performed at: [facility] [address] [place] [id number] Tony PATTERSON 05/12/2019 2:12 PM CDT 05/12/2019 2:12 PM CDT Aye Dao MD LAB - MICROBIOLOGY ORDERABLES [address] [address] * (ABNORMAL) CULTURE YEAST WITH DIRECT FLUORESCENT MODESTA (05/12/2019 2:12 PM CDT) Only the most recent of4 resultswithin the time period is included. Smear (A) [facility] Comment: CULTURE, YEAST, W/DIRECT FLUORESCENT MODESTA MICRO NUMBER: [id number] TEST STATUS: FINAL SPECIMEN SOURCE: WOUND (SITE NOT SPECIFIED) SPECIMEN QUALITY: ADEQUATE SMEAR: No fungal elements seen. RESULT: Bambi albicans Test Performed at: [facility] [address] ZORAIDA TYLER MD 05/12/2019 2:12 PM CDT 05/12/2019 2:12 PM CDT Aye Dao MD LAB - MICROBIOLOGY ORDERABLES Performing Organization Address [facility]/ZIP Co de Phone Number [facility] [employer] [facility] [address] [place] [id number] * (ABNORMAL) CULTURE URINE COMPREHENSIVE (03/27/2017 1:53 PM CDT) [facility] Culture SEE NOTE(A) [facility] ([facility]) Comment: CULTURE, URINE, SPECIAL MICRO NUMBER: [id number] TEST STATUS: FINAL SPECIMEN SOURCE: OTHER (SPECIFY) [...] susceptibility to parenteral cefazolin. Test Performed at: [facility] [address] ZORAIDA TYLER MD 03/27/2017 1:53 PM CDT 03/27/2017 11:00 PM CDT Aye Dao MD LAB - MICROBIOLOGY ORDERABLES Performing Organization Address City/[facility]/ZIP Co de Phone Number [facility]) * PH FLUID - POCT (AMB) [facility] (11/05/2016) Only the most recent of2 resultswithin the time period is included. pH Vaginal 4.5 [facility] Vaginal swab (specimen) 11/05/2016 Aye Dao MD LAB - POINT OF CAR E ORDERABLES [facility] * WET PREP - POINT OF CARE (AMB) [facility] (11/05/2016) Only the most recent of2 resultswithin the time period is included. pH Wet Prep 4.5 [facility] Yeast Wet Prep neg [facility] Trichomonas Wet Prep neg [facility] Bacteria Wet Prep neg [facility] Whiff Test neg [facility] 11/05/2016 Aye Dao MD LAB - POINT OF CAR E ORDERABLES Performing Organization Address City/[facility]/ZIP Co de Phone Number [facility] * FUNGUS MODESTA - POINT OF CARE (AMB) [facility] (11/05/2016) Only the most recent of2 resultswithin the time period is included. MODESTA Prep negt [facility] Fluid specimen (specimen) 11/05/2016 Aye Dao MD LAB - POINT OF CAR E ORDERABLES [facility] Care Teams Central Scheduler Relationship Specialty Start Date End Date Casa Encarnacion MD PCP - General 12/12/15
--- OUTSIDE RECORDS SUMMARY | 2024-11-16 14:45 | XMS_ITS ---
Author Organization [facility] Address [address] [place], [place] [address] Care Team Providers Care Assistant Field Hockey Coach Name Role Phone CYNDY DUTTON Unavailable [phone] Casa Encarnacion Unavailable Unavailable LUCYMaryCYNDY Unavailable [phone] REASON FOR VISIT Patient presents for at-risk foot care . The patient has painful toenails and calluses that are causing difficulty with ambulation and shoegear. The onset is gradual Medications Medication SIG (Take, Route, Frequency, Duration) Notes Start Date End Date Status chlordiazepoxide hydrochloride 5 MG Oral Capsule ORAL chlordiazepoxide hydrochloride 5 MG Oral CapsuleOriginal Medicationchlordiazepoxide hydrochloride 5 MG Oral Capsule *Reorder from [employer] for eRx and Interaction Alerts* 09/02/20 12 Active ciclopirox 80 MG/ML Topical Solution ciclopirox 80 MG/ML Topical SolutionOriginal Medicationciclopirox 80 MG/ML Topical Solution *Reorder from [employer] for eRx and Interaction Alerts* 12/17/19 15 Active Atenolol 25 MG Oral Tablet ORAL atenolol 25 MG Oral TabletOriginal Medicationatenolol 25 MG Oral Tablet *Reorder from [employer] for eRx and Interaction Alerts* 12/20/19 15 Active Lisinopril 10 MG Oral Tablet ORAL lisinopril 10 MG Oral TabletOriginal Medicationlisinopril 10 MG Oral Tablet *Reorder from [employer] for eRx and Interaction Alerts* 09/02/20 12 Active Metoprolol Tartrate 25 MG Oral Tablet ORAL metoprolol tartrate 25 MG Oral TabletOriginal Medicationmetoprolol tartrate 25 MG Oral Tablet *Reorder from [employer] for eRx and Interaction Alerts* 09/02/20 12 Active Encounters Encounter Location Date Provider Diagnosis [facility] [address] [place], [place] [id number] 09/09/2024 CYNDY OMER Tinea unguium B35.1 ; Pain in right foot M79.671 ; Pain in left foot M79.672 ; 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 Provider Name:BOGDAN REEVES, 01/13/2025 10:50:00 AM, [address], [place], [id number], Progress Notes * BRENDA WILSON MDOB: 7 (89 yo F)Acc No.[id number]:09/09/2024 Patient: BRENDA MONREAL Provider: Juan Carlos Omer DPM :1935 A ge:89 Y S ex:Female Date:09/09/2024 Address:[address] [place] [address], [facility] Subjective: * Chief Complaints: * Cinthia edmonds [...] by Dr. Encarnacion was 08/2024., Initials [facility]. * Medical History: * Surgical History: * Hospitalization/Major Diagno stic Procedure: * Medications: T akingAtenolol 25 MG Oral Tablet ORAL , Notes to Pharmacist: atenolol 25 MG Oral TabletOriginal Medicationatenolol 25 MG Oral Tablet *[facility] and Interaction Alerts*Lisinopril 10 MG Oral Tablet ORAL , Notes to Pharmacist: lisinopril 10 MG Oral TabletOriginal Medicationlisinopril 10 MG Oral Tablet *[facility] for [facility]Rx and Interaction Alerts*Metoprolol Tartrate 25 MG Oral Tablet ORAL , Notes to Pharmacist: metoprolol tartrate 25 MG Oral TabletOriginal Medicationmetoprolol tartrate 25 MG Oral Tablet *[facility] from [facility] for eRx and Interaction Alerts*chlordiazepoxide hydrochloride 5 MG Oral Capsule ORAL , Notes to Pharmacist: chlordiazepoxide hydrochloride 5 MG Oral CapsuleOriginal Medicationchlordiazepoxide hydrochloride 5 MG Oral Capsule *[facility] from [facility] for eRx and Interaction Alerts*ciclopirox 80 MG/ML Topical Solution , Notes to Pharmacist: ciclopirox 80 MG/ML Topical SolutionOriginal Medicationciclopirox 80 MG/ML Topical Solution *Reorder from [facility] for eRx and Interaction Alerts*Medication List reviewed and reconciled with the patientTaking Atenolol 25 MG Oral Tablet ORAL , Notes to Pharmacist: atenolol 25 MG Oral TabletOriginal Medicationatenolol 25 MG Oral Tablet *Reorder from [facility] for eRx and Interaction Alerts*Taking Lisinopril 10 MG Oral Tablet ORAL , Notes to Pharmacist: lisinopril 10 MG Oral TabletOriginal Medicationlisinopril 10 MG Oral Tablet *Reorder from [facility] for eRx and Interaction Alerts*Taking Metoprolol Tartrate 25 MG Oral Tablet ORAL , Notes to Pharmacist: metoprolol tartrate 25 MG Oral TabletOriginal Medicationmetoprolol tartrate 25 MG Oral Tablet *Reorder from [facility] for eRx and Interaction Alerts*Taking chlordiazepoxide hydrochloride 5 MG Oral Capsule ORAL , Notes to Pharmacist: chlordiazepoxide hydrochloride 5 MG Oral CapsuleOriginal Medicationchlordiazepoxide hydrochloride 5 MG Oral Capsule *Reorder from [facility] for eRx and Interaction Alerts*Taking ciclopirox 80 MG/ML Topical Solution , Notes to Pharmacist: ciclopirox 80 MG/ML Topical SolutionOriginal Medicationciclopirox 80 MG/ML Topical Solution *Reorder from [facility] for eRx and Interaction Alerts*Medication List reviewed [...] - M79.672 4 . 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 Modifiers: Q8 81866 DEBRIDE NAIL, 6 OR MORE. Modifiers: 59, Q8 * ION MECHANIC APPRENTICE Sign off status: Completed true * Provider: Juan Carlos Omer DPM Date: 0 09/09/2024 Generated for Jonnathan henao/Cathy/Armand on: 0 11/16/2024 02:45 PM CDT History [...]
--- OUTSIDE RECORDS SUMMARY | 2024-11-16 14:45 | XMS_ITS | Referral Summary ---
Author Organization [facility] [employer] Address [address] [place] [address] Care Team Providers Care Fold Skiver Name Role Phone Casa Encarnacion MD Primary Care Provider [phone] Source Comments [facility],non-owned Affiliates and Associated Physician Practices is amultiple site organization consisting of ambulatory clinics and hospital sitesin [place], [place], [place] and [place]. This disclosure is being madepursuant to the Care Everywhere program and may not contain all information available regarding this patient. Last updated 18.[facility] [employer] Allergies Active Allergy Reactions Criticality Noted Date [...] be different from the original. Patient uses [employer]. 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
--- OUTSIDE RECORDS SUMMARY | 2024-11-16 14:46 | XMS_ITS ---
Author Organization [facility] Address [address] [place], [place] [address] Care Team Providers Care Goggles Assembler Name Role Phone CYNDY DUTTON Unavailable [phone] Casa Encarnacion Unavailable Unavailable ZAHIRAMary CYNDY Unavailable [phone] Allergies No Known Allergies REASON FOR VISIT Patient presents for at-risk foot care . The patient has painful toenails and calluses that are causing difficulty with ambulation and shoegear. The onset is gradual Medications Medication SIG (Take, Route, Frequency, Duration) Notes Start Date End Date Status Metoprolol Tartrate 25 MG Oral Tablet ORAL metoprolol tartrate 25 MG Oral TabletOriginal Medicationmetoprolol tartrate 25 MG Oral Tablet *Reorder from [employer] for eRx and Interaction Alerts* 09/02/20 12 Active Lisinopril 10 MG Oral Tablet ORAL lisinopril 10 MG Oral TabletOriginal Medicationlisinopril 10 MG Oral Tablet *Reorder from [employer] for eRx and Interaction Alerts* 09/02/20 12 Active Atenolol 25 MG Oral Tablet ORAL atenolol 25 MG Oral TabletOriginal Medicationatenolol 25 MG Oral Tablet *Reorder from [employer] for eRx and Interaction Alerts* 12/20/19 15 Active ciclopirox 80 MG/ML Topical Solution ciclopirox 80 MG/ML Topical SolutionOriginal Medicationciclopirox 80 MG/ML Topical Solution *Reorder from [employer] for eRx and Interaction Alerts* 12/17/19 15 Active chlordiazepoxide hydrochloride 5 MG Oral Capsule ORAL chlordiazepoxide hydrochloride 5 MG Oral CapsuleOriginal Medicationchlordiazepoxide hydrochloride 5 MG Oral Capsule *Reorder from [employer] for eRx and Interaction Alerts* 09/02/20 12 Active Encounters Encounter Location Date Provider Diagnosis [address] [id number] 11/11/2024 CYNDY OMER Tinea unguium B35.1 ; Acquired keratosis [keratoderma] palmaris et plantaris L85.1 ; 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 Provider Name:BOGDAN REEVES, 01/13/2025 10:50:00 AM, [address] [place] [address], [id number], Progress Notes * BRENDA WILSON MDOB: 7 (89 yo F)Acc No.[id number]:11/11/2024 Patient: BRENDA MONREAL Provider: Juan Carlos Omer DPM :1935 A ge:89 Y S ex:Female Date:11/11/2024 Address:[address] [place] [address], [facility] Subjective: * Chief Complaints: * 1 . Patient presents for at-risk foot care . The patient has painful toenails and calluses that are causing difficulty with ambulation and shoegear. The onset is gradual. * HPI: H PI: General care P atient presents to the office for at risk foot care. Patient states that their nails are thickened, elongated and painful. Patient states that it is aggravated by shoe gear. Onset is gradual. Patient denies being diabetic., Patient denies taking prescription blood thinners but does take a daily aspirin., Date last seen by Dr. Encarnacion was October 2024., Initials [facility]. * Medical History: * Family History: F ather: PRN - Father: :: Stroke,,known absent , :: Arthritis,,known absent . M other: PRN - Mother: :: Arthritis,,known absent . B rother: SIB - Brother: . S ister: SIB - Sister: .? * Social History: M igrated Social History: M igrated Social History: Smoking Status : Never smoked , History of tobacco use :. * Medications: T aking Atenolol 25 MG Oral Tablet ORAL , Notes to Pharmacist: atenolol 25 MG Oral TabletOriginal Medicationatenolol 25 MG Oral Tablet *Reorder from [facility] for eRx and Interaction Alerts*, Taking Lisinopril 10 MG Oral Tablet ORAL , Notes to Pharmacist: lisinopril 10 MG Oral TabletOriginal Medicationlisinopril 10 MG Oral Tablet *Reorder from [facility] for eRx and Interaction Alerts*, Taking Metoprolol Tartrate 25 MG Oral Tablet ORAL , Notes to Pharmacist: metoprolol tartrate 25 MG Oral TabletOriginal Medicationmetoprolol tartrate 25 MG Oral Tablet *Reorder from [facility] for eRx and Interaction Alerts*, Taking chlordiazepoxide hydrochloride 5 MG Oral Capsule ORAL , Notes to Pharmacist: chlordiazepoxide hydrochloride 5 MG Oral CapsuleOriginal Medicationchlordiazepoxide hydrochloride 5 MG Oral Capsule *Reorder from [facility] for eRx and Interaction Alerts*, Taking ciclopirox 80 MG/ML Topical Solution , Notes to Pharmacist: ciclopirox 80 MG/ML Topical SolutionOriginal Medicationciclopirox 80 MG/ML Topical Solution *Reorder from [facility] for eRx and Interaction Alerts*, Medication List reviewed and reconciled with the patient * Allergies: N .K.D.A. Objective: * Vitals: * Examination: P hysical Examination: General appearance: A lert, pleasant, well-nourished and in no acute distress. D ermatologic: Skin findings: S kin is thin, atrophic and lacking pedal hair. Hypertrophic / hyperkeratotic lesion: p lantar-medial aspect of the right 1st metatarsal head. [...] extremities. ? Assessment: * Assessment: 1. T inea unguium - B35.1 2 . A cquired keratosis [keratoderma] palmaris et plantaris - L85.1 3 . 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 P ain in right foot - M79.671 5 . P ain in left foot - M79.672 Plan: * Treatment: 2. 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 Encarnacion was October 2024., Initials [facility] Examination Category Sub-Category Detail Notes Category Not es Dermatologic Skin findings: Skin is thin, at rophic and lacking pedal hair Nail pathology: Nails 1, 2, 3, 4, an d 5 bilateral are elongated, thick, discolored, and dystrophic with subungual debris. They are painful to palpation Hypertrophic / hyperkeratotic lesion: pl cameron-medial aspect of the right 1st metatarsal head [...]
--- OUTSIDE RECORDS SUMMARY | 2024-11-16 14:46 | XMS_ITS | Clinical Summary ---
Author Organization [facility] Address [address] [place] [address] Phone Care Team Providers Care Service Counter Cashier Name Role Phone Casa Encarnacion MD Primary [...] on file Legal Sex Female 9:11 AM TRANSPORT ANALYST Gender Identity Not on file Sexual Orientation Not on file Occupation Industry Job Start Date Job End Date retired Not on file Not on file Not on file Last Filed Vital Signs Vital Sign Reading Time Taken Comments Blood Pressure 140/82 11/08/2015 3:33 PM TRANSPORT ANALYST Pulse - - Temperature - - Respiratory Rate - - Oxygen Saturation - - Inhaled Oxygen Concentration - - Weight 59 kg (130 lb) 11/08/2015 3:33 PM TRANSPORT ANALYST Height 167.6 cm (5' 6 ) 11/08/2015 3:33 PM TRANSPORT ANALYST Body Mass Index 20.98 11/08/2015 3:33 PM TRANSPORT ANALYST Plan of Treatment Health Maintenance Due Date Last Done Comments DTAP/TDAP/TD VACCINES (1 - Tdap) 02/23/1954 PNEUMOCOCCAL VACCINE 50+ YEA RS (1 of 1 - PCV) 1987 09/08/2009 ZOSTER VACCINE (1 of 2) 1987 RSV VACCINE (60+ or ) (1 - 1-dose 75+ series) 02/23/2012 BREAST CANCER SCREENING 09/08/2013 09/08/19 13 (Previously completed) INFLUENZA VACCINE (#1) 2024 06/08/2014 OSTEOPOROSIS SCREENING Completed 7, 04/22/2014, 09/08/2013 (Previously completed) Insurance MEDICARE PART A AND B [facility] Care Teams Service Counter Cashier Relationship Specialty Start Date End Date Casa Encarnacion MD [address] [place] [phone] PCP - General Internal Medicine 10/12/14
== END 2024-11-16 13:18 | disposition home or self-care (01) ==
PROVIDERS: PCP Internal Medicine; Visit Provider Internal Medicine
DX: E87.6 Hypokalemia (principal)
CPT/HCPCS: 36415; 80048

== ENCOUNTER 2024-12-21 12:47 | Outpatient (CLI) | payer MEDICARE, SELFPAY ==
[2024-12-21] MEDS: DENOSUMAB 60 MG/ML SYRINGE SUB-Q (13:02)
[2024-12-21 13:04] VITALS: BP 163/70; PULSE 72; RESP 14; TEMP 36.4; O2SAT 97; BMI 22.5
--- NOTE | 2024-12-21 13:11 | PC.NURSE ---
Patient here for every 6 month Prolia injection. Education given. No concerns voiced. Injection administered. SEE MAR/patient care notes. Tolerated well.
--- OUTSIDE RECORDS SUMMARY | 2024-12-21 13:41 | XMS_ITS ---
Author Organization [facility] Address [address] [place], [place] [address] Care Team Providers Care Automotive Assembler Name Role Phone CYNDY DUTTON Unavailable [phone] Casa Encarnacion Unavailable Unavailable PARVIN CORDOVA Unavailable [phone] REASON FOR VISIT *General care Medications Medication SIG (Take, Route, Frequency, Duration) Notes Start Date End Date Status chlordiazepoxide hydrochloride 5 MG Oral Capsule ORAL chlordiazepoxide hydrochloride 5 MG Oral CapsuleOriginal Medicationchlordiazepoxide hydrochloride 5 MG Oral Capsule *Reorder from [employer] for eRx and Interaction Alerts* 09/02/20 12 Active Metoprolol Tartrate 25 MG Oral Tablet ORAL metoprolol tartrate 25 MG Oral TabletOriginal Medicationmetoprolol tartrate 25 MG Oral Tablet *Reorder from [employer] for eRx and Interaction Alerts* 09/02/20 12 Active ciclopirox 80 MG/ML Topical Solution ciclopirox 80 MG/ML Topical SolutionOriginal Medicationciclopirox 80 MG/ML Topical Solution *Reorder from [employer] for eRx and Interaction Alerts* 12/17/19 15 Active Lisinopril 10 MG Oral Tablet ORAL lisinopril 10 MG Oral TabletOriginal Medicationlisinopril 10 MG Oral Tablet *Reorder from [employer] for eRx and Interaction Alerts* 09/02/20 12 Active Atenolol 25 MG Oral Tablet ORAL atenolol 25 MG Oral TabletOriginal Medicationatenolol 25 MG Oral Tablet *Reorder from [employer] for eRx and Interaction Alerts* 12/20/19 15 Active Encounters Encounter Location Date Provider Diagnosis [address] [id number] 07/01/2024 PARVIN CORDOVA Other hammer toe(s) (acquired), right foot M20.41 ; Tinea unguium B35.1 ; Other hammer toe(s) (acquired), left foot M20.42 ; Pain in right toe(s) M79.674 ; Pain in left toe(s) M79.675 ; Unspecified atherosclerosis of [place] arteries of extremities, bilateral legs I70.203 and [...] (ICD-10 - M79.675) 07/01/2024 Unspecified atherosclerosis of [place] arteries of extremities, bilateral legs (ICD-10 - [...] OTC and prescription treatments. Unspecified atherosclerosis of [place] arteries of extremities, bilateral legs Patient educated [...] Reason: Provider Name:BOGDAN REEVES, 01/13/2025 10:50:00 AM, [address] [place] [address], [id number], Progress Notes * PARAMJITBRENDA HILLS MDOB: (89 yo F)Acc No.[id number]:07/01/2024 Patient: BRENDA MONREAL Provider: Ward CORDOVA :1935 A ge:89 Y S ex:Female Date:07/01/2024 Address:[address] [facility] Subjective: * Chief Complaints: * 1 . [...] Dr. Encarnacion was 01/2024., Initials [facility]. * ROS: G eneral / Constitutional: Patient [...] Medicationatenolol 25 MG Oral Tablet *Reorder from [facility] for eRx and Interaction Alerts*, Taking Lisinopril 10 MG Oral Tablet ORAL , Notes to Pharmacist: lisinopril 10 MG Oral TabletOriginal Medicationlisinopril 10 MG Oral Tablet *Reorder from [facility] for eRx and Interaction Alerts*, Taking Metoprolol Tartrate 25 MG Oral Tablet ORAL , Notes to Pharmacist: metoprolol tartrate 25 MG Oral TabletOriginal Medicationmetoprolol tartrate 25 MG Oral Tablet *Reorder from [facility] for eRx and Interaction Alerts*, Taking chlordiazepoxide hydrochloride 5 MG Oral Capsule ORAL , Notes to Pharmacist: chlordiazepoxide hydrochloride 5 MG Oral CapsuleOriginal Medicationchlordiazepoxide hydrochloride 5 MG Oral Capsule *Reorder from [facility] for eRx and Interaction Alerts*, Taking ciclopirox 80 MG/ML Topical Solution , Notes to Pharmacist: ciclopirox 80 MG/ML Topical SolutionOriginal Medicationciclopirox 80 MG/ML Topical Solution *Reorder from [facility] for eRx and Interaction Alerts* Objective: * [...] M79.675 6 . U nspecified atherosclerosis of [place] arteries of extremities, bilateral legs - I70.203 [...] were emphasized. 3. U nspecified atherosclerosis of [place] arteries of extremities, bilateral legs Notes: Patient [...] LESIONS, 2 TO 4, Modifiers: Q8 , 52731 DEBRIDE NAIL, 6 OR MORE, Modifiers: 59 , Q8 * Follow Up: 3 Months * Billing Information: * Visit Code: * Procedure Codes: 95537 TRIM SKIN LESIONS, 2 TO 4. Modifiers: Q8 10811 DEBRIDE NAIL, 6 OR MORE. Modifiers: 59, Q8 * TECH Sign off status: Completed true * Provider: Ward CORDOVA Date: Generated for Jonnathan henao/Cathy/eTmarkitting on: 0 12/21/2024 01:41 PM CDT History and Physical Notes * [...]
--- OUTSIDE RECORDS SUMMARY | 2024-12-21 13:41 | XMS_ITS | Clinical Summary ---
Author Organization [facility] Address [facility] [place] [address] Care Team Providers Care Asbestos Wire Finisher Name Role Phone Casa Encarnacion MD Primary Care Provider [phone] Allergies Active Allergy Reactions Criticality Noted Date [...] Diagnosed Date Confusion 01/28/2020 Acute ischemic stroke ([facility]) 01/26/20 Family History Medical History Relation Comments [...] - 1-dose 75+ series) 02/23/2012 Pneumococcal Vaccine: 50+ Ye ars (2 of 2 - PPSV23) 03/04/2017 03/04/2016 COVID-19 Vaccine ( - 2023-2 5 season) 2024 Meningococcal B Vaccine Aged Out No l onger eligible based on patient's age to complete this topic Meningococcal Vaccine Aged Out No adam yuniel eligible based on patient's age to complete this topic RSV Immunizations Under 20 Months Aged Out No longer eligible based on patient's age to complete this topic Medical Devices Implanted Type Area Performance Improvement Analyst Device Identifier Shelf Expiration Date Model / Serial / Lot Iol [employer] Simplicity Dcb00 - [id number] Implanted:Qty: 1 on 01/21/2024 by Catherine Newman MD at [facility] Lens Left: Eye [employer] [id number] 05/05/2026 DCB00 / [id number] / DCB00 Tecnis 1-Piece Iol Implanted:Qty: 1 on 12/24/2023 by Catherine Newman MD at [facility] Right: Eye [employer] [id number] 04/14/2026 DCB00 / [id number] / [id number] Insurance MEDICARE 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
--- OUTSIDE RECORDS SUMMARY | 2024-12-21 13:42 | XMS_ITS | Clinical Summary ---
Author Organization [facility] Address [address] [facility] [place] [address] Phone Care Team Providers Care Res Habilitation Assistant Name Role Phone Casa Encarnacion MD [...] on file Legal Sex Female 9:11 AM ATHLETICS DIRECTOR Gender Identity Not on file Sexual Orientation Not on file Occupation Industry Job Start Date Job End Date retired Not on file Not on file Not on file Last Filed Vital Signs Vital Sign Reading Time Taken Comments Blood Pressure 140/82 11/08/2015 3:33 PM ATHLETICS DIRECTOR Pulse - - Temperature - - Respiratory Rate - - Oxygen Saturation - - Inhaled Oxygen Concentration - - Weight 59 kg (130 lb) 11/08/2015 3:33 PM ATHLETICS DIRECTOR Height 167.6 cm (5' 6 ) 11/08/2015 3:33 PM ATHLETICS DIRECTOR Body Mass Index 20.98 11/08/2015 3:33 PM ATHLETICS DIRECTOR Plan of Treatment Health Maintenance Due Date [...] completed) Insurance MEDICARE PART A AND B [facility] Care Teams Res Habilitation Assistant Relationship Specialty Start Date End Date Casa Encarnacion MD [address] [place] [phone] PCP - General Internal Medicine 10/12/14
--- OUTSIDE RECORDS SUMMARY | 2024-12-21 13:42 | XMS_ITS ---
Author Organization [facility] Address [address] [place], [place] [address] Care Team Providers Care Insulation Hoseman Name Role Phone CYNDY DUTTON Unavailable [phone] Casa Encarnacion Unavailable Unavailable LUCYMaryCYNDY Unavailable [phone] REASON FOR VISIT Patient presents for at-risk foot care . The patient has painful toenails and calluses that are causing difficulty with ambulation and shoegear. The onset is gradual Medications Medication SIG (Take, Route, Frequency, Duration) Notes Start Date End Date Status chlordiazepoxide hydrochloride 5 MG Oral Capsule ORAL chlordiazepoxide hydrochloride 5 MG Oral CapsuleOriginal Medicationchlordiazepoxide hydrochloride 5 MG Oral Capsule *Reorder from [facility] for eRx and Interaction Alerts* 09/02/20 12 Active ciclopirox 80 MG/ML Topical Solution ciclopirox 80 MG/ML Topical SolutionOriginal Medicationciclopirox 80 MG/ML Topical Solution *Reorder from [facility] for eRx and Interaction Alerts* 12/17/19 15 Active Atenolol 25 MG Oral Tablet ORAL atenolol 25 MG Oral TabletOriginal Medicationatenolol 25 MG Oral Tablet *Reorder from [facility] for eRx and Interaction Alerts* 12/20/19 15 Active Lisinopril 10 MG Oral Tablet ORAL lisinopril 10 MG Oral TabletOriginal Medicationlisinopril 10 MG Oral Tablet *Reorder from [facility] for eRx and Interaction Alerts* 09/02/20 12 Active Metoprolol Tartrate 25 MG Oral Tablet ORAL metoprolol tartrate 25 MG Oral TabletOriginal Medicationmetoprolol tartrate 25 MG Oral Tablet *Reorder from [facility] for eRx and Interaction Alerts* 09/02/20 12 Active Encounters Encounter Location Date Provider Diagnosis [facility] [address] [place], [place] [id number] 09/09/2024 CYNDY OMER Tinea unguium B35.1 ; Pain in right foot M79.671 ; Pain in left foot M79.672 ; 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 Encarnacion was 08/2024., Initials [facility]. * Medical History: * Surgical History: * Hospitalization/Major Diagno stic Procedure: * Medications: T akingAtenolol 25 MG Oral Tablet ORAL , Notes to Pharmacist: atenolol 25 MG Oral TabletOriginal Medicationatenolol 25 MG Oral Tablet *[facility] and Interaction Alerts*Lisinopril 10 MG Oral Tablet ORAL , Notes to Pharmacist: lisinopril 10 MG Oral TabletOriginal Medicationlisinopril 10 MG Oral Tablet *[facility] for eRx and Interaction Alerts*Metoprolol Tartrate 25 MG Oral Tablet ORAL , Notes to Pharmacist: metoprolol tartrate 25 MG Oral TabletOriginal Medicationmetoprolol tartrate 25 MG Oral Tablet *[facility] for eRx and Interaction Alerts*chlordiazepoxide hydrochloride 5 MG Oral Capsule ORAL , Notes to Pharmacist: chlordiazepoxide hydrochloride 5 MG Oral CapsuleOriginal Medicationchlordiazepoxide hydrochloride 5 MG Oral Capsule *[facility] for eRx and Interaction Alerts*ciclopirox 80 MG/ML Topical Solution , Notes to Pharmacist: ciclopirox 80 MG/ML Topical SolutionOriginal Medicationciclopirox 80 MG/ML Topical Solution *Reorder from [facility] for eRx and Interaction Alerts*Medication List reviewed and reconciled with the patientTaking Atenolol 25 MG Oral Tablet ORAL , Notes to Pharmacist: atenolol 25 MG Oral TabletOriginal Medicationatenolol 25 MG Oral Tablet *Reorder from [facility] for eRx and Interaction Alerts*Taking Lisinopril 10 MG Oral Tablet ORAL , Notes to Pharmacist: lisinopril 10 MG Oral TabletOriginal Medicationlisinopril 10 MG Oral Tablet *Reorder from [facility] for eRx and Interaction Alerts*Taking Metoprolol Tartrate 25 MG Oral Tablet ORAL , Notes to Pharmacist: metoprolol tartrate 25 MG Oral TabletOriginal Medicationmetoprolol tartrate 25 MG Oral Tablet *Reorder from [facility] for eRx and Interaction Alerts*Taking chlordiazepoxide hydrochloride 5 MG Oral Capsule ORAL , Notes to Pharmacist: chlordiazepoxide hydrochloride 5 MG Oral CapsuleOriginal Medicationchlordiazepoxide hydrochloride 5 MG Oral Capsule *Reorder from [facility] for eRx and Interaction Alerts*Taking ciclopirox 80 MG/ML Topical Solution , Notes to Pharmacist: ciclopirox 80 MG/ML Topical SolutionOriginal Medicationciclopirox 80 MG/ML Topical Solution *Reorder from [facility] for eRx and Interaction Alerts*Medication List reviewed [...] - M79.672 4 . 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 Modifiers: Q8 86200 DEBRIDE NAIL, 6 OR MORE. Modifiers: 59, Q8 * ION MARKETER Sign off status: Completed true * Provider: Juan Carlos Omer DPM Date: 0 09/09/2024 Generated for Jonnathan henao/Cathy/Armand on: 0 12/21/2024 01:41 PM CDT History [...]
--- OUTSIDE RECORDS SUMMARY | 2024-12-21 13:42 | XMS_ITS | Patient Health Record ---
Author Organization [facility] Address [address] [place], [place] [address] Care Team Providers Care Riverboat Captain Name Role Phone CYNDY DUTTON Unavailable [phone] Casa Encarnacion Unavailable Unavailable CYNDY OMER Unavailable [phone] PARVIN CORDOVA Unavailable [phone] Allergies No Known Allergies Reason For Referral No Information Medications Medication SIG (Take, Route, Frequency, Duration) Notes Start Date End Date Status Metoprolol Tartrate 25 MG Oral Tablet ORAL metoprolol tartrate 25 MG Oral TabletOriginal Medicationmetoprolol tartrate 25 MG Oral Tablet *Reorder from [facility] for eRx and Interaction Alerts* 09/02/20 12 Active Lisinopril 10 MG Oral Tablet ORAL lisinopril 10 MG Oral TabletOriginal Medicationlisinopril 10 MG Oral Tablet *Reorder from [employer] for eRx and Interaction Alerts* 09/02/20 12 Active Atenolol 25 MG Oral Tablet ORAL atenolol 25 MG Oral TabletOriginal Medicationatenolol 25 MG Oral Tablet *Reorder from [facility] for eRx and Interaction Alerts* 12/20/19 15 Active ciclopirox 80 MG/ML Topical Solution ciclopirox 80 MG/ML Topical SolutionOriginal Medicationciclopirox 80 MG/ML Topical Solution *Reorder from [employer] [facility] for eRx and Interaction Alerts* 12/17/19 15 [...] 02/26/2024 Encounters Encounter Location Date Provider Diagnosis [address] [id number] 11/11/2024 CYNDY LUCYK Tinea unguium B35.1 ; Pain in right foot M79.671 ; Pain in left foot M79.672 ; 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, bilateral legs I70.213 and Acquired keratosis [keratoderma] palmaris et plantaris L85.[address] [id number] 02/26/2024 PARVIN CORDOVA Other hammer toe(s) (acquired), right foot M20.41 ; Tinea unguium B35.1 ; Other hammer toe(s) (acquired), left foot M20.42 ; Pain in right toe(s) M79.674 ; Pain in left toe(s) M79.675 ; 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, bilateral legs I70.203 and Acquired keratosis [keratoderma] palmaris et plantaris L85.[address] [id number] 04/29/2024 PARVIN CORDOVA Other hammer toe(s) (acquired), right foot M20.41 ; Tinea unguium B35.1 ; Other hammer toe(s) (acquired), left foot M20.42 ; Pain in right toe(s) M79.674 ; Pain in left toe(s) M79.675 ; 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, bilateral legs I70.203 and Acquired keratosis [keratoderma] palmaris et plantaris L85.[address] [id number] 07/01/2024 PARVIN CORDOVA Other hammer toe(s) (acquired), right foot M20.41 ; Tinea unguium B35.1 ; Other hammer toe(s) (acquired), left foot M20.42 ; Pain in right toe(s) M79.674 ; Pain in left toe(s) M79.675 ; 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 11/11/2024 Tinea unguium (ICD-10 - B35.1) Nails 1-5 Bilateral were debrided extensively with nail nippers and emery board, reducing length and girth to pink healthy tissue with any subungual debris and necrotic tissue removed 11/11/2024 Pain in right foot (ICD-10 - M79.671) 09/09/2024 Tinea unguium (ICD-10 - B35.1) Nails 1-5 Bilateral were debrided extensively with nail nippers and emery board, reducing length and girth to pink healthy tissue with any subungual debris and necrotic tissue removed 09/09/2024 Pain in right foot (ICD-10 - M79.671) 07/01/2024 Tinea unguium (ICD-10 - B35.1) Aseptic [...] Pain in left foot (ICD-10 - M79.672) 11/11/2024 Pain in left foot (ICD-10 - M79.672) 04/29/2024 Other hammer toe(s) (acquired), left foot (ICD-10 - M20.42) 02/26/2024 Other hammer toe(s) (acquired), left foot (ICD-10 - M20.42) 02/26/2024 Pain in right toe(s) (ICD-10 - M79.674) 04/29/2024 Pain in right toe(s) (ICD-10 - M79.674) 09/09/2024 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, bilateral legs (ICD-10 - I70.213) 11/11/2024 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, bilateral legs (ICD-10 - I70.213) 07/01/2024 Pain in right toe(s) (ICD-10 - M79.674) 07/01/2024 Pain in left toe(s) (ICD-10 - M79.675) 11/11/2024 Acquired keratosis [keratoderma] palmaris et plantaris (ICD-10 - L85.1) A total of 1 corns or calluses, as described in the note above, were cut and pared utilizing a #15 blade 09/09/2024 Acquired keratosis [keratoderma] palmaris et plantaris (ICD-10 - L85.1) A total of 1 corns or calluses, as described in the note above, were cut and pared utilizing a #15 blade 04/29/2024 Pain in left toe(s) (ICD-10 - M79.675) 02/26/2024 Pain in left toe(s) (ICD-10 - M79.675) 02/26/2024 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, bilateral legs (ICD-10 - I70.203) Patient educated on risks and aggravating factors of PVD, including conservative treatment options such as a diet and exercise regimen to aid in slowing progression of vascular disease 04/29/2024 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, bilateral legs (ICD-10 - I70.203) Patient educated on risks and aggravating factors of PVD, including conservative treatment options such as a diet and exercise regimen to aid in slowing progression of vascular disease 07/01/2024 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, bilateral legs (ICD-10 - [...] Details Provider Name:BOGDAN REEVES, 01/13/2025 10:50:00 AM, [address] [place] [address], [id number], Insurance Providers Payer Name Payer Address Payer Phone Subscriber Number Group Number Insured Name Patient Relationship to Insured Coverage Start Date Coverage End Date Medicare Part B [facility] [address] [place] [address] [id number] BRENDA WILSON Self - patient is the insured [address] [address] [id number] BRENDA WILSON Self - patient is the insured
--- OUTSIDE RECORDS SUMMARY | 2024-12-21 13:42 | XMS_ITS ---
Author Organization [facility] Address [address] [place], [place] [address] Care Team Providers Care Operations Officer Name Role Phone CYNDY DUTTON Unavailable [phone] Casa Encarnacion Unavailable Unavailable ZAHIRAMary CYNDY Unavailable [phone] Allergies No Known Allergies REASON FOR VISIT [...] tartrate 25 MG Oral Tablet *Reorder from [facility] for eRx and Interaction Alerts* 09/02/20 12 Active Lisinopril 10 MG Oral Tablet ORAL lisinopril 10 MG Oral TabletOriginal Medicationlisinopril 10 MG Oral Tablet *Reorder from [facility] for eRx and Interaction Alerts* 09/02/20 12 Active Atenolol 25 MG Oral Tablet ORAL atenolol 25 MG Oral TabletOriginal Medicationatenolol 25 MG Oral Tablet *Reorder from [facility] for eRx and Interaction Alerts* 12/20/19 15 Active ciclopirox 80 MG/ML Topical Solution ciclopirox 80 MG/ML Topical SolutionOriginal Medicationciclopirox 80 MG/ML Topical Solution *Reorder from [facility] for eRx and Interaction Alerts* 12/17/19 15 Active chlordiazepoxide hydrochloride 5 MG Oral Capsule ORAL chlordiazepoxide hydrochloride 5 MG Oral CapsuleOriginal Medicationchlordiazepoxide hydrochloride 5 MG Oral Capsule *Reorder from [facility] for eRx and Interaction Alerts* 09/02/20 12 Active Encounters Encounter Location Date Provider Diagnosis [address] [id number] 11/11/2024 CYNDY OMER Tinea unguium B35.1 ; Pain in right foot M79.671 ; Pain in left foot M79.672 ; Atherosclerosis of [place] arteries of extremities with intermittent claudication, bilateral [...] in left foot (ICD-10 - M79.672) 11/11/2024 Atherosclerosis of [place] arteries of extremities with intermittent claudication, bilateral legs (ICD-10 - I70.213) 11/11/2024 Acquired keratosis [keratoderma] palmaris et plantaris [...] develop. Provider Name:BOGDAN REEVES, 01/13/2025 10:50:00 AM, [address] [place] [address], [id number], Progress Notes * BRENDA WILSON MDOB: 7 (89 yo F)Acc No.[id number]:11/11/2024 Patient: BRENDA MONREAL Provider: Juan Carlos Omer DPM :1935 A ge:89 Y S ex:Female Date:11/11/2024 Address:[address] [place] [address], [facility] Subjective: * Chief Complaints: * 1 . [...] Medicationatenolol 25 MG Oral Tablet *Reorder from [facility] for eRx and Interaction Alerts*, Taking Lisinopril 10 MG Oral Tablet ORAL , Notes to Pharmacist: lisinopril 10 MG Oral TabletOriginal Medicationlisinopril 10 MG Oral Tablet *Reorder from [facility] for eRx and Interaction Alerts*, Taking Metoprolol Tartrate 25 MG Oral Tablet ORAL , Notes to Pharmacist: metoprolol tartrate 25 MG Oral TabletOriginal Medicationmetoprolol tartrate 25 MG Oral Tablet *Reorder from [facility] for eRx and Interaction Alerts*, Taking chlordiazepoxide hydrochloride 5 MG Oral Capsule ORAL , Notes to Pharmacist: chlordiazepoxide hydrochloride 5 MG Oral CapsuleOriginal Medicationchlordiazepoxide hydrochloride 5 MG Oral Capsule *Reorder from [facility] for eRx and Interaction Alerts*, Taking ciclopirox 80 MG/ML Topical Solution , Notes to Pharmacist: ciclopirox 80 MG/ML Topical SolutionOriginal Medicationciclopirox 80 MG/ML Topical Solution *Reorder from [facility] for eRx and Interaction Alerts*, Medication [...] inea unguium - B35.1 (Primary) 2 . P ain in right foot - M79.671 ? 3 . P ain in left foot - M79.672 4 . A therosclerosis of [place] arteries of extremities with intermittent claudication, bilateral legs - I70.213 5 . Acquired keratosis [keratoderma] palmaris et plantaris - L85.1 Plan: * Treatment: 2. A cquired keratosis [keratoderma] palmaris et plantaris Notes: A total of 1 corns or calluses, as described in the note above, were cut and pared utilizing a #15 blade * Procedure Codes: 1 1055 TRIM SKIN LESION, Modifiers: Q8 , 60988 DEBRIDE NAIL, 6 OR MORE, Modifiers: 59 , Q8 * Follow Up: 1 0 - 12 weeks (Reason: At-Risk Foot care, sooner if problems develop.) * Billing Information: * Visit Code: * Procedure Codes: 36391 TRIM SKIN LESION. Modifiers: Q8 27542 DEBRIDE NAIL, 6 OR MORE. Modifiers: 59, Q8 * Electronic signature of CYNDY OMER DPM on 12/21/2024 at 01:41 PM CDT Sign off status: Pending * Provider: Juan Carlos Omer DPM Date: 0 11/11/2024 Generated for Jonnathan Rg/Armand on: 0 12/21/2024 01:41 PM CDT History [...]
--- OUTSIDE RECORDS SUMMARY | 2024-12-21 13:42 | XMS_ITS | Clinical Summary ---
Author Organization [facility] Address [address] [place] [address] Care Team Providers Care System Trainer Name Role Phone Casa Encarnacion MD Primary Care Provider [phone] Source Comments [facility],non-owned Affiliates and Associated Physician Practices is amultiple site organization consisting of ambulatory clinics and hospital sitesin [place], [place], [place] and [place]. This disclosure is being madepursuant to the Care Everywhere program and may not contain all information available regarding this patient. Last updated 18.[facility] Allergies Active Allergy Reactions Criticality Noted Date Comments Seasonal Other Low 08/27/2017 Sneezing Medications * Be aware that medications may not be up to date on this document. Alwaysverify current medications with the patient. metoprolol tartrate (LOPRESSOR) 25 MG tablet 7 Active alendronate (FOSAMAX) 70 MG tablet 7 Active mirtazapine (REMERON) 30 MG tablet Take 1 (one) tablet by mouth 7 Active chlordiazePOXIDE (LIBRIUM) 5 MG capsule 8 Active aspirin (ASPIRIN) 81 MG chew tablet Take 1 (one) tablet by mouth once daily 0 Active Bismuth Subsalicylate 525 MG/15ML Take 30 [...] 1 (one) tablet by mouth once daily 0 Active loperamide (IMODIUM) 2 MG capsule Take [...] 1 (one) tablet by mouth once daily 0 Active potassium chloride ER (Klor-Con) 10 MEQ tablet Take 1 (one) tablet by mouth once daily 2 Active methenamine hippurate (Hiprex) 1 GM tablet 4 Active methylPREDNISolon e (Medrol Dosepak) 4 MG tablet 3 Active nitrofurantoin monohyd macro crystals (Macrobid) 100 MG capsule 4 Active sulfamethoxazole- trimethoprim (Bactrim DS; Septra DS) 800-160 MG tablet 4 Active traMADol (Ultram) 50 MG tablet 4 Active nystatin (Mycostatin) powderIndications :History of candidiasis Compounded 120,000 unit nystatin vaginal capsules. INSERT ONE CAPSULE IN THE VAGINA NIGHTLY DIRECTED. 30 Each 4 4 Active gabapentin (Neurontin) 300 MG capsuleIndication s:Vulvodynia TAKE TWO CAPSULES BY MOUTH THREE TIMES A DAY 540 capsule 3 4 Active Active Problems Patient Care Coordination No te Formatting of this note migh t be different from the original. Patient uses [employer]. 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 [...] at Not on file Legal Sex Female 5:12 PM PARTS PULLER Gender Identity Not on file Sexual Orientation Not on file Last Filed Vital Signs Vital Sign Reading Time Taken Comments Blood Pressure 118/70 06/01/2024 12:55 PM CDT Pulse 62 11/05/2016 8:34 AM PARTS PULLER Temperature 36.5 C (97.7 F) 06/01/2024 12:55 [...] CDT Office Visit [facility] [address] [place] [address] Aye Dao MD [address] [facility] [address] [place] [address] Health Maintenance Due Date Last [...] 2024 06/30/2022, 07/04/2021, 11/03/2020, Additional history exists DEPRESSION SCREENING 09/08/2024 INFLUENZA VACCINE (Season Ended) 2025 07/01/2022, 06/19/2021, 06/13/2020, Additional history exists HEPATITIS B VACCINE Aged Out No longe r eligible based on patient's age to complete this topic HIB VACCINE Aged Out No longer eligi ble based on patient's age to complete this topic HPV VACCINE Aged Out No longer eligi ble based on patient's age to complete this topic MENINGOCOCCAL (Group B) VACCINE SHARED DECISION-MAKING Aged Out No longer eligible based on patient's age to complete this topic MENINGOCOCCAL GROUPS A/C/Y/W VACCINE Aged Out No longer eligible based on patient's age to complete this topic Insurance MEDICARE A[employer] MEDICARE * Guarantor: BRENDA WILSON Account Type Relation to Patient Date of Phone Billing Address Personal/[place] [address] MEDICARE MEDICARE SUPPLEMENT PAYOR GENERIC * Guarantor: BRENDA WILSON Account Type Relation to Patient Date of Phone Billing Address Personal/[place] [address] MEDICARE MEDICARE SUPPLEMENT PAYOR GENERIC * Guarantor: BRENDA WILSON Account Type Relation to Patient Date of Phone Billing Address Personal/[place] [address] MEDICARE MEDICARE SUPPLEMENT PAYOR GENERIC Care Teams System Trainer Relationship Specialty Start Date End Date Casa Encarnacion MD [facility] - General 12/12/15
== END 2024-12-21 12:48 | disposition home or self-care (01) ==
PROVIDERS: PCP Internal Medicine; Visit Provider Internal Medicine
DX: M81.0 Age-related osteoporosis without current pathological fracture (principal)
CPT/HCPCS: 96372; J0897

== ENCOUNTER 2025-02-24 07:04 | Outpatient (CLI) | payer MEDICARE, SELFPAY ==
--- OUTSIDE RECORDS SUMMARY | 2025-02-24 07:12 | XMS_ITS | Patient Health Record ---
Author Organization [facility] Address [address] [place], [place] [address] Care Team Providers Care Snow Technician Name Role Phone CYNDY DUTTON Unavailable [phone] Casa Encarnacion Unavailable Unavailable CYNDY OMER Unavailable [phone] PARVIN CORDOVA Unavailable [phone] BOGDAN GÓMEZ Unavailable [phone] Allergies No Known Allergies Reason For Referral No Information Medications Medication SIG (Take, Route, Frequency, Duration) Notes Start Date End Date Status Metoprolol Tartrate 25 MG Oral Tablet ORAL metoprolol tartrate 25 MG Oral TabletOriginal Medicationmetoprolol tartrate 25 MG Oral Tablet *Reorder from [employer] for eRx and Interaction Alerts* 09/02/20 12 Active Lisinopril 10 MG Oral Tablet ORAL lisinopril 10 MG Oral TabletOriginal Medicationlisinopril 10 MG Oral Tablet *Reorder from [employer] for eRx and Interaction Alerts* 09/02/20 12 Active ciclopirox 80 MG/ML Topical Solution ciclopirox 80 MG/ML Topical SolutionOriginal Medicationciclopirox 80 MG/ML Topical Solution *Reorder from [employer] for eRx and Interaction Alerts* 12/17/19 15 Active chlordiazepoxide hydrochloride 5 MG Oral Capsule ORAL chlordiazepoxide hydrochloride 5 MG Oral CapsuleOriginal Medicationchlordiazepoxide hydrochloride 5 MG Oral Capsule *Reorder from [employer] for eRx and Interaction Alerts* 09/02/20 12 Active Atenolol 25 MG Oral Tablet ORAL atenolol 25 MG Oral TabletOriginal Medicationatenolol 25 MG Oral Tablet *Reorder from [employer] for eRx and Interaction Alerts* 12/20/19 15 Active Immunizations Vaccine Route Administration Date Status Comme nts Influenza, high dose seasonal Unknown 06/13/2023 Admini stered Influenza (split), 3 yrs and above Unknown 06/08/2014 A dministered Influenza (split), 3 yrs and above Unknown 06/08/2014 A dministered Vital Signs Height-cm 162.56 cm 02/26/2024 Weight-kg 61.69 kg 02/26/2024 Height 64.00 in 02/26/2024 Weight 136 lbs 02/26/2024 BMI 23.34 kg/m2 02/26/2024 Encounters Encounter Location Date Provider Diagnosis [address] [id number] 01/20/2025 BOGDAN GÓMEZ Tinea unguium B35.1 ; Pain in right foot M79.671 ; Pain in left foot M79.672 ; Atherosclerosis of [place] arteries of extremities with intermittent claudication, bilateral legs I70.213 and Acquired keratosis [keratoderma] palmaris et plantaris L85.[address] [id number] 02/26/2024 PARVIN CORDOVA Other hammer toe(s) (acquired), right foot M20.41 ; Tinea unguium B35.1 ; Other hammer toe(s) (acquired), left foot M20.42 ; Pain in right toe(s) M79.674 ; Pain in left toe(s) M79.675 ; Unspecified atherosclerosis of [place] arteries of extremities, bilateral legs I70.203 and Acquired keratosis [keratoderma] palmaris et plantaris L85.[address] [id number] 04/29/2024 PARVIN CORDOVA Other hammer toe(s) (acquired), right foot M20.41 ; Tinea unguium B35.1 ; Other hammer toe(s) (acquired), left foot M20.42 ; Pain in right toe(s) M79.674 ; Pain in left toe(s) M79.675 ; Unspecified atherosclerosis of [place] arteries of extremities, bilateral legs I70.203 and Acquired keratosis [keratoderma] palmaris et plantaris L85.[address] [id number] 07/01/2024 PARVIN SHERMANZOILA Other hammer toe(s) (acquired), right foot M20.41 ; Tinea unguium B35.1 ; Other hammer toe(s) (acquired), left foot M20.42 ; Pain in right toe(s) M79.674 ; Pain in left toe(s) M79.675 ; Unspecified atherosclerosis of [place] arteries of extremities, bilateral legs I70.203 and Acquired keratosis [keratoderma] palmaris et plantaris L85.1 [facility] [address] [place], [place] [id number] 09/09/2024 CYNDY SNOOK Tinea unguium B35.1 ; Pain in right foot M79.671 ; Pain in left foot M79.672 ; Atherosclerosis of [place] arteries of extremities with intermittent claudication, bilateral legs I70.213 and Acquired keratosis [keratoderma] palmaris et plantaris L85.[address] [id number] 11/11/2024 CYNDY SNOOK Tinea unguium B35.1 ; Pain in right foot M79.671 ; Pain in left foot M79.672 ; Atherosclerosis of [place] arteries of extremities with intermittent claudication, bilateral [...] Pain in right foot (ICD-10 - M79.671) 01/20/2025 Tinea unguium (ICD-10 - B35.1) Nails 1-5 Bilateral were debrided extensively with nail nippers and emery board, reducing length and girth to pink healthy tissue with any subungual debris and necrotic tissue removed 01/20/2025 Pain in right foot (ICD-10 - M79.671) Patient was instructed to try an OTC topical pain reliever/anti-infl ammatory such as Voltaren Gel, Aspercreme with Lidocaine, or Biofreeze etc over the affected areas. Spot test on hand or somewhere visible prior to starting to watch for possible rash/allergic reaction. Use Goldbond for feet on calluses. 01/20/2025 Pain in left foot (ICD-10 - M79.672) 11/11/2024 Pain in left foot (ICD-10 - M79.672) 09/09/2024 Pain in left foot (ICD-10 - [...] toe(s) (ICD-10 - M79.674) 09/09/2024 Atherosclerosis of [place] arteries of extremities with intermittent claudication, bilateral legs (ICD-10 - I70.213) 11/11/2024 Atherosclerosis of [place] arteries of extremities with intermittent claudication, bilateral legs (ICD-10 - I70.213) 01/20/2025 Atherosclerosis of [place] arteries of extremities with intermittent claudication, bilateral legs (ICD-10 - I70.213) Check and protect LE bilateral daily. Call if any changes or concerns. 01/20/2025 Acquired keratosis [keratoderma] palmaris et plantaris (ICD-10 - L85.1) A total of 1 corns or calluses, as described in the note above, were cut and pared utilizing a #15 blade 11/11/2024 Acquired keratosis [keratoderma] palmaris et plantaris [...] (ICD-10 - M79.675) 02/26/2024 Unspecified atherosclerosis of [place] arteries of extremities, bilateral legs (ICD-10 - I70.203) Patient educated on risks and aggravating factors of PVD, including conservative treatment options such as a diet and exercise regimen to aid in slowing progression of vascular disease 07/01/2024 Unspecified atherosclerosis of [place] arteries of extremities, bilateral legs (ICD-10 - I70.203) Patient educated on risks and aggravating factors of PVD, including conservative treatment options such as a diet and exercise regimen to aid in slowing progression of vascular disease 04/29/2024 Unspecified atherosclerosis of [place] arteries of extremities, bilateral legs (ICD-10 - [...] Treatment Next Appt Details Provider Name:BOGDAN REEVES, 03/31/2025 01:30:00 PM, [address] [place] [address], [id number], Insurance Providers Payer Name Payer Address Payer Phone Subscriber Number Group Number Insured Name Patient Relationship to Insured Coverage Start Date Coverage End Date Medicare Part [place] [address] [place] [phone] [id number] BRENDA WILSON Self - patient is the insured [facility] [address] [place] [phone] [id number] BRENDA WILSON Self - patient is the insured 5
--- OUTSIDE RECORDS SUMMARY | 2025-02-24 07:12 | XMS_ITS | Clinical Summary ---
Author Organization [facility] Address [address] [facility] [place] [address] Phone Care Team Providers Care Bunch Breaker Machine Operator Name Role Phone Casa Encarnacion [...] on file Legal Sex Female 9:11 AM MIRROR PAINTER Gender Identity Not on file Sexual Orientation Not on file Occupation Industry Job Start Date Job End Date retired Not on file Not on file Not on file Last Filed Vital Signs Vital Sign Reading Time Taken Comments Blood Pressure 140/82 11/08/2015 3:33 PM MIRROR PAINTER Pulse - - Temperature - - Respiratory Rate - - Oxygen Saturation - - Inhaled Oxygen Concentration - - Weight 59 kg (130 lb) 11/08/2015 3:33 PM MIRROR PAINTER Height 167.6 cm (5' 6) 11/08/2015 3:33 PM MIRROR PAINTER Body Mass Index 20.98 11/08/2015 3:33 PM MIRROR PAINTER Plan of Treatment Health Maintenance Due Date Last Done Comments DTAP/TDAP/TD VACCINES (1 - Tdap) 02/23/1956 PNEUMOCOCCAL VACCINE 50+ YEA RS (1 of 1 - PCV) 1987 09/08/2009 ZOSTER VACCINE (1 of 2) 1987 RSV VACCINE (60+ or ) (1 - 1-dose 75+ series) 02/23/2012 BREAST CANCER SCREENING 09/08/2013 09/08/19 13 (Previously completed) OSTEOPOROSIS SCREENING 02/19/2022 7, 04/22/2014, 09/08/2013 (Previously completed) INFLUENZA VACCINE (#1) 2024 06/08/2014 Insurance MEDICARE PART A AND B CIGNA MCR SUPP VIKY VILLARREAL [facility] Care Teams Bunch Breaker Machine Operator Relationship Specialty Start Date End Date Casa Encarnacion MD [address] [place] [phone] PCP - General Internal Medicine 10/12/14
--- OUTSIDE RECORDS SUMMARY | 2025-02-24 07:12 | XMS_ITS | Clinical Summary ---
Author Organization [facility] [employer] Address [address] [facility] [place] [address] Care Team Providers Care Health And Wellness Director Name Role Phone Casa Encarnacion MD Primary Care Provider [phone] Source Comments [facility] [employer],non-owned Affiliates and Associated Physician Practices is amultiple site organization consisting of ambulatory clinics and hospital sitesin [place], [place], [place] and [place]. This disclosure is being madepursuant to the Care Everywhere program and may not contain all information available regarding this patient. Last updated 18.[facility] [employer] Allergies Active Allergy Reactions Criticality Noted Date [...] be different from the original. Patient uses [employer]. 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 Gender Identity Not on file Sexual Orientation Not on file Last Filed Vital Signs Vital Sign Reading Time Taken Comments Blood Pressure 118/70 06/01/2024 12:55 PM CDT Pulse 62 11/05/2016 8:34 AM SPEECH THERAPIST TECHNICIAN Temperature 36.5 C (97.7 F) 06/01/2024 12:55 PM CDT Respiratory Rate - - Oxygen Saturation - - Inhaled Oxygen Concentration - - Weight 59.4 kg (131 lb) 06/01/2024 12:55 PM CDT Height 167.6 cm (5' 6) 06/01/2024 12:55 PM CDT Body Mass Index 21.14 06/01/2024 12:55 PM CDT Plan of Treatment Upcoming Encounters Date Type Department Care Team (Late st Contact Info) Description 05/24/2025 2:00 PM CDT Office Visit [facility] - MACHINE SHOP SPECIALIST [address] [place] [address] Aye Dao MD [address] [facility] [address] [place] [address] Health Maintenance Due Date Last Done Comments BONE DENSITY TESTING 1935 MEDICARE AWV 12 MONTHS 1935 DTAP/TDAP/TD VACCINES (1 - Tdap) 02/23/1956 ZOSTER VACCINE (1 of 2) 1987 PNEUMOCOCCAL VACCINE 50+ (2 of 2 - PCV20 or PCV21) 09/08/2010 09/08/2009 Respiratory Syncytial Virus (RSV) Vaccine [...] Date of Phone Billing Address Personal/[place] [address] MEDICARE MEDICARE SUPPLEMENT PAYOR GENERIC * Guarantor: BRENDA WILSON Account Type Relation to Patient Date of Phone Billing Address Personal/[place] [address] MEDICARE MEDICARE SUPPLEMENT PAYOR GENERIC * Guarantor: BRENDA WILSON Account Type Relation to Patient Date of Phone Billing Address Personal/[place] [address] MEDICARE Member Subscriber Plan / Payer (Ef fective for All Dates) Name:Brenda Wilson Member ID:[id number] Relation to Subscriber:Self Name:Brenda Wilson Subscriber ID:[id number] Payer ID:Not on file Group ID:Not on file Type:Medicare Address: [address] MEDICARE SUPPLEMENT PAYOR GENERIC Care Teams Health And Wellness Director Relationship Specialty Start Date End Date Casa Encarnacion MD [facility] - General 12/12/15
--- OUTSIDE RECORDS SUMMARY | 2025-02-24 07:12 | XMS_ITS ---
Author Organization [facility] Address [address] [place], [place] [id number] Care Team Providers Care Bag Press Operator Name Role Phone CYNDY DUTTON Unavailable [phone] Casa Encarnacion Unavailable Unavailable BOGDAN GÓMEZ Unavailable [phone] REASON FOR VISIT *General care Medications Medication SIG (Take, Route, Frequency, Duration) Notes Start Date End Date Status Metoprolol Tartrate 25 MG Oral Tablet ORAL metoprolol tartrate 25 MG Oral TabletOriginal Medicationmetoprolol tartrate 25 MG Oral Tablet *Reorder from [employer] for eRx and Interaction Alerts* 09/02/20 12 Active Lisinopril 10 MG Oral Tablet ORAL lisinopril 10 MG Oral TabletOriginal Medicationlisinopril 10 MG Oral Tablet *Reorder from [employer] for eRx and Interaction Alerts* 09/02/20 12 Active ciclopirox 80 MG/ML Topical Solution ciclopirox 80 MG/ML Topical SolutionOriginal Medicationciclopirox 80 MG/ML Topical Solution *Reorder from [employer] for eRx and Interaction Alerts* 12/17/19 15 Active chlordiazepoxide hydrochloride 5 MG Oral Capsule ORAL chlordiazepoxide hydrochloride 5 MG Oral CapsuleOriginal Medicationchlordiazepoxide hydrochloride 5 MG Oral Capsule *Reorder from [employer] for eRx and Interaction Alerts* 09/02/20 12 Active Atenolol 25 MG Oral Tablet ORAL atenolol 25 MG Oral TabletOriginal Medicationatenolol 25 MG Oral Tablet *Reorder from [employer] for eRx and Interaction Alerts* 12/20/19 15 Active Encounters Encounter Location Date Provider Diagnosis [address] [id number] 01/20/2025 BOGDAN GÓMEZ Tinea unguium B35.1 ; Pain in right foot M79.671 ; Pain in left foot M79.672 ; Atherosclerosis of [place] arteries of extremities with intermittent claudication, bilateral [...] foot (ICD-10 - M79.672) 01/20/2025 Atherosclerosis of [place] arteries of extremities with intermittent claudication, bilateral [...] [employer] for feet on calluses. Atherosclerosis of [place] ar teries of extremities with intermittent claudication, [...] sooner if problems develop. Provider Name:BOGDAN REEVES, 03/31/2025 01:30:00 PM, [address] [place] [address], [phone], Progress Notes * BRENDA WILSON MDOB: (89 yo F)Acc No.[id number]:01/20/2025 Patient: BRENDA MONREAL Provider: Adri GÓMEZ :1935 A ge:89 Y S ex:Female Date:01/20/2025 Address: [facility] Subjective: * Chief Complaints: * 1 . [...] by Dr. Encarnacion was 12/2024., Initials [facility]. * ROS: G eneral / Constitutional: Patient denies w eakness. M usculoskeletal: Patient complains of h ammertoes, flat feet/ planus. ? P eripheral Vascular: Patient denies b lanching of skin, cold extremities, decreased sensation in extremities. S kin: Patient complains of n ail changes, fungal nails, calluses and corns. N eurologic: Patient denies d izziness, gait abnormality, headache. * Medical History: * Family History: F [...] Medicationatenolol 25 MG Oral Tablet *Reorder from [facility] for eRx and Interaction Alerts*, Taking Lisinopril 10 MG Oral Tablet ORAL , Notes to Pharmacist: lisinopril 10 MG Oral TabletOriginal Medicationlisinopril 10 MG Oral Tablet *Reorder from [facility] for eRx and Interaction Alerts*, Taking Metoprolol Tartrate 25 MG Oral Tablet ORAL , Notes to Pharmacist: metoprolol tartrate 25 MG Oral TabletOriginal Medicationmetoprolol tartrate 25 MG Oral Tablet *Reorder from [facility] for eRx and Interaction Alerts*, Taking chlordiazepoxide hydrochloride 5 MG Oral Capsule ORAL , Notes to Pharmacist: chlordiazepoxide hydrochloride 5 MG Oral CapsuleOriginal Medicationchlordiazepoxide hydrochloride 5 MG Oral Capsule *Reorder from [facility] for eRx and Interaction Alerts*, Taking ciclopirox 80 MG/ML Topical Solution , Notes to Pharmacist: ciclopirox 80 MG/ML Topical SolutionOriginal Medicationciclopirox 80 MG/ML Topical Solution *Reorder from [facility] for eRx and Interaction Alerts*, Medication [...] - M79.672 4 . 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 3. 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 Call if any changes or concerns. 4. A cquired keratosis [keratoderma] palmaris et plantaris Notes: A total of 1 corns or calluses, as described in the note above, were cut and pared utilizing a #15 blade * Procedure Codes: 1 1055 TRIM SKIN LESION, Modifiers: Q8 , 28896 DEBRIDE NAIL, 6 OR MORE, Modifiers: 59 , Q8 * Follow Up: 1 0 - 12 weeks (Reason: At-Risk Foot care, sooner if problems develop.) * Billing Information: * Visit Code: * Procedure Codes: 58933 TRIM SKIN LESION. Modifiers: Q8 98431 DEBRIDE NAIL, 6 OR MORE. Modifiers: 59, Q8 * Electronic signature of STARR GÓMEZ DPM on 02/24/2025 at 07:11 AM CDT Sign off status: Pending * Provider: Adri GÓMEZ Date: 0 01/20/2025 Generated for Jonnathan henao/Cathy/eTransmitting on: 0 02/24/2025 07:11 AM CDT History and Physical Notes * HPI [...]
[2025-02-24 08:14] LABS: Hematocrit 40.7 % (35.0-42.0); Hemoglobin 12.6 g/dL (11.7-13.8); Mean Corpuscular Hemoglobin 29.4 pg (27.0-31.0); Mean Corpuscular Volume 95.1 fL (78.0-102.0); Mean Platelet Volume 11.6 fl (9.2-11.8); Platelet Count Result 259 K/mm3 (150-420); Red Blood Count 4.28 M/mm3 (4.20-5.40); Red Cell Distribution Width 14.3 % (11.6-14.4); White Blood Count 8.1 K/mm3 (4.8-10.8)
[2025-02-24 08:27] LABS: Alanine Aminotransferase 13 U/L (6-35); Alkaline Phosphatase 49 U/L (38-126); Anion Gap 5 mmol/L (4-12); Aspartate Amino Transferase 23 U/L (14-36); Bilirubin,Total 0.4 mg/dL (0.2-1.3); Blood Urea Nitrogen 13 mg/dL (7-17); Calcium 9.2 mg/dL (8.4-10.2); Carbon Dioxide 25 mmol/L (22-30); Chloride 113 mmol/L (98-107); Cholesterol 145 mg/dL (0-200); Estimated Glomerular Filt Rate > 60; Glucose 92 mg/dL (65-110); HDL Direct 54 mg/dL; Iron 100 ug/dL (37-170); LDL Cholesterol Calculated 63 mg/dL (<130); Osmolality Calculated 296 mOsm/kg (285-295); Potassium 4.1 mmol/L (3.4-5.0); Sodium 143 mmol/L (137-145); Total Protein 6.1 g/dL (6.3-8.2); Triglycerides 138 mg/dL (<150)
[2025-02-24 08:44] LABS: Free T4 Free Thyroxine 0.93 ng/dL (0.78-2.19); Vitamin D 25 Hydroxy 16.1 ng/mL
[2025-02-24 09:17] LABS: Vitamin B12 > 1000.0 pg/mL (239-931)
[2025-02-24 12:50] LABS: Add Urine Microscopic? YES; Bilirubin Urine Negative (Negative); Blood Urine Negative (Negative); Color Urine Light Yellow (Yellow); Glucose Urine UA Negative (Negative); Ketones Urine Negative (Negative); Leukocyte Esterase Ur 1+ LEU/UL (Negative); Nitrate Urine Negative (Negative); Protein Urine Trace (Negative); Specific Grav Ur 1.015 (1.010-1.020); Urobilinogen Urine 0.2 mg/dL (0.2-1.0)
[2025-02-24 12:56] LABS: Appearance Urine Sl Cloudy (Clear); Bacteria Urine 2+ /hpf; RBC Urine None seen /hpf (0-2); Squamous Epithelial Cell Urine Few /hpf (Few)
== END 2025-02-24 07:05 | disposition home or self-care (01) ==
LOC: CHSLAB 07:09
PROVIDERS: PCP Internal Medicine; Visit Provider Internal Medicine
DX: E53.8 Deficiency of other specified B group vitamins (principal); M81.0 Age-related osteoporosis without current pathological fracture; I10 Essential (primary) hypertension; E78.2 Mixed hyperlipidemia; G31.84 Mild cognitive impairment of uncertain or unknown etiology; D64.9 Anemia, unspecified; N39.0 Urinary tract infection, site not specified
CPT/HCPCS: 36415; 80053; 80061; 81001; 82306; 82607; 82728; 83540; 84439; 84443; 85027; 87086

== ENCOUNTER 2025-03-28 14:02 | Outpatient (CLI) | payer MEDICARE, SELFPAY ==
--- NOTE | ~2025-03-28 | US_ITS ---
US soft tissue head and neck 03/28/2025 14:24 Indication: Palpable posterior neck mass on the left Procedure: Ultrasound of the neck Comparison: No prior studies for comparison. Findings: In the left posterior subcutaneous neck there is an oval well circumscribed hypoechoic mass with parallel orientation, no internal vascularity and posterior acoustic enhancement measuring appr oximately 1.8 x 1.4 x 1 cm. The lesion is located within the subcutaneous tissues superficial to the underlying musculature. There is no internal vascularity. No additional suspicious masses or lymphade nopathy are identified. Impression: 1: Well-defined oval hypoechoic avascular subcutaneous mass left posterior neck most likely represent ing epidermoid cyst or hypoechoic lipoma. Clinically correlation is advised. If symptomatic, enlargin g or indeterminate on examination consider surgical excision or fine-needle aspiration biopsy for def initive diagnosis. Reviewed, dictated and finalized at location A. Impression: 1: Well-defined oval hypoechoic avascular subcutaneous mass left posterior neck most likely representing epidermoid cyst or hypoechoic lipoma. Clinically jorgito elation is advised. If symptomatic, enlarging or indeterminate on examination c onsider surgical excision or fine-needle aspiration biopsy for definitive diagn osis.
--- OUTSIDE RECORDS SUMMARY | 2025-03-28 14:10 | XMS_ITS | Clinical Summary ---
Author Organization [facility] Address [address] [facility] [place] [address] Phone Care Team Providers Care Aerospace Mechanic Name Role Phone Casa Encarnacion MD [...] on file Legal Sex Female 9:11 AM STATION ENGINEER MAIN LINE Gender Identity Not on file Sexual Orientation Not on file Occupation Industry Job Start Date Job End Date retired Not on file Not on file Not on file Last Filed Vital Signs Vital Sign Reading Time Taken Comments Blood Pressure 140/82 11/08/2015 3:33 PM STATION ENGINEER MAIN LINE Pulse - - Temperature - - Respiratory Rate - - Oxygen Saturation - - Inhaled Oxygen Concentration - - Weight 59 kg (130 lb) 11/08/2015 3:33 PM STATION ENGINEER MAIN LINE Height 167.6 cm (5' 6) 11/08/2015 3:33 PM STATION ENGINEER MAIN LINE Body Mass Index 20.98 11/08/2015 3:33 PM STATION ENGINEER MAIN LINE Plan of Treatment Health Maintenance Due Date [...] 04/22/2014, 09/08/2013 (Previously completed) INFLUENZA VACCINE (#1) 2025 06/08/2014 Insurance MEDICARE PART A AND B CIGNA MCR SUPP VIKY VILLARREAL [facility] Care Teams Aerospace Mechanic Relationship Specialty Start Date End Date Casa Encarnacion MD [address] [place] [phone] PCP - General Internal Medicine 10/12/14
--- OUTSIDE RECORDS SUMMARY | 2025-03-28 14:10 | XMS_ITS | Patient Health Record ---
Author Organization [facility] Address [address] [place], [place] [address] Care Team Providers Care Ortho/Prosthetic Aide Name Role Phone CYNDY DUTTON Unavailable [phone] Casa Encarnacion Unavailable Unavailable CYNDY OMER Unavailable [phone] PARVIN CORDOVA Unavailable [phone] BOGDAN GÓMEZ Unavailable [phone] Allergies No Known Allergies Reason For Referral No Information Medications Medication SIG (Take, Route, Frequency, Duration) Notes Start Date End Date Status Metoprolol Tartrate 25 MG Oral Tablet ORAL metoprolol tartrate 25 MG Oral TabletOriginal Medicationmetoprolol tartrate 25 MG Oral Tablet *Reorder from [employer] for eRx and Interaction Alerts* 09/02/20 12 Active Lisinopril 10 MG Oral Tablet ORAL lisinopril 10 MG Oral TabletOriginal Medicationlisinopril 10 MG Oral Tablet *Reorder from [employer] for eRx and Interaction Alerts* 09/02/20 12 Active ciclopirox 80 MG/ML Topical Solution ciclopirox 80 MG/ML Topical SolutionOriginal Medicationciclopirox 80 MG/ML Topical Solution *Reorder from [employer] for eRx and Interaction Alerts* 12/17/19 15 Active chlordiazepoxide hydrochloride 5 MG Oral Capsule ORAL chlordiazepoxide hydrochloride 5 MG Oral CapsuleOriginal Medicationchlordiazepoxide hydrochloride 5 MG Oral Capsule *Reorder from [employer] for eRx and Interaction Alerts* 09/02/20 12 Active Atenolol 25 MG Oral Tablet ORAL atenolol 25 MG Oral TabletOriginal Medicationatenolol 25 MG Oral Tablet *Reorder from [employer] for eRx and Interaction Alerts* 12/20/19 15 Active Immunizations Vaccine Route Administration Date Status Comme nts Influenza (split), 3 yrs and above Unknown 06/08/2014 A dministered Influenza (split), 3 yrs and above Unknown 06/08/2014 A dministered Influenza, high dose seasonal Unknown 06/13/2023 Admini stered Encounters Encounter Location Date Provider Diagnosis [address] [id number] 01/20/2025 BOGDAN GÓMEZ Tinea unguium B35.1 ; Pain in right foot M79.671 ; Pain in left foot M79.672 ; Atherosclerosis of [place] arteries of extremities with intermittent claudication, bilateral legs I70.213 and Acquired keratosis [keratoderma] palmaris et plantaris L85.[address] [id number] 04/29/2024 PARVIN CORDOVA Other hammer toe(s) (acquired), right foot M20.41 ; Tinea unguium B35.1 ; Other hammer toe(s) (acquired), left foot M20.42 ; Pain in right toe(s) M79.674 ; Pain in left toe(s) M79.675 ; Unspecified atherosclerosis of [place] arteries of extremities, bilateral legs I70.203 and Acquired keratosis [keratoderma] palmaris et plantaris L85.[address] [id number] 07/01/2024 PARVIN CORDOVA Other hammer toe(s) (acquired), right foot M20.41 ; Tinea unguium B35.1 ; Other hammer toe(s) (acquired), left foot M20.42 ; Pain in right toe(s) M79.674 ; Pain in left toe(s) M79.675 ; Unspecified atherosclerosis of [place] arteries of extremities, bilateral legs I70.203 and Acquired keratosis [keratoderma] palmaris et plantaris L85.1 [facility] [address] [place], [place] [id number] 09/09/2024 CYNDY OMER Tinea unguium B35.1 ; Pain in right foot M79.671 ; Pain in left foot M79.672 ; Atherosclerosis of [place] arteries of extremities with intermittent claudication, bilateral legs I70.213 and Acquired keratosis [keratoderma] palmaris et plantaris L85.[address] [id number] 11/11/2024 CYNDY OMER Tinea unguium B35.1 ; Pain in right foot M79.671 ; Pain in left foot M79.672 ; Atherosclerosis of [place] arteries of extremities with intermittent claudication, bilateral [...] toe(s) (ICD-10 - M79.674) 09/09/2024 Atherosclerosis of [place] arteries of extremities with intermittent claudication, bilateral legs (ICD-10 - I70.213) 11/11/2024 Atherosclerosis of [place] arteries of extremities with intermittent claudication, bilateral legs (ICD-10 - I70.213) 01/20/2025 Atherosclerosis of [place] arteries of extremities with intermittent claudication, bilateral [...] (ICD-10 - M79.675) 07/01/2024 Unspecified atherosclerosis of [place] arteries of extremities, bilateral legs (ICD-10 - I70.203) Patient educated on risks and aggravating factors of PVD, including conservative treatment options such as a diet and exercise regimen to aid in slowing progression of vascular disease 04/29/2024 Unspecified atherosclerosis of [place] arteries of extremities, bilateral legs (ICD-10 - [...] Details Provider Name:BOGDAN REEVES, 03/31/2025 01:30:00 PM, [address] [place] [address], [phone], Insurance Providers Payer Name Payer Address Payer Phone Subscriber Number Group Number Insured Name Patient Relationship to Insured Coverage Start Date Coverage End Date Medicare Part B [place] [address] [place] [address] [id number] BRENDA WILSON Self - patient [facility] the [facility] [address] TAMIKA BRICENO [id number] BRENDA WILSON Self - patient is the insured 5
--- OUTSIDE RECORDS SUMMARY | 2025-03-28 14:10 | XMS_ITS ---
Author Organization [facility] Address [address] [place], [place] [address] Care Team Providers Care Php Consultant Name Role Phone CYNDY DUTTON Unavailable [phone] Casa Encarnacion Unavailable Unavailable BOGDAN GÓMEZ Unavailable [phone] REASON FOR VISIT *General care Medications Medication SIG (Take, Route, Frequency, Duration) Notes Start Date End Date Status Metoprolol Tartrate 25 MG Oral Tablet ORAL metoprolol tartrate 25 MG Oral TabletOriginal Medicationmetoprolol tartrate 25 MG Oral Tablet *Reorder from [employer] for eRx and Interaction Alerts* 09/02/20 12 Active Lisinopril 10 MG Oral Tablet ORAL lisinopril 10 MG Oral TabletOriginal Medicationlisinopril 10 MG Oral Tablet *Reorder from [employer] for eRx and Interaction Alerts* 09/02/20 12 Active ciclopirox 80 MG/ML Topical Solution ciclopirox 80 MG/ML Topical SolutionOriginal Medicationciclopirox 80 MG/ML Topical Solution *Reorder from [employer] for eRx and Interaction Alerts* 12/17/19 15 Active chlordiazepoxide hydrochloride 5 MG Oral Capsule ORAL chlordiazepoxide hydrochloride 5 MG Oral CapsuleOriginal Medicationchlordiazepoxide hydrochloride 5 MG Oral Capsule *Reorder from [employer] for eRx and Interaction Alerts* 09/02/20 12 Active Atenolol 25 MG Oral Tablet ORAL atenolol 25 MG Oral TabletOriginal Medicationatenolol 25 MG Oral Tablet *Reorder from [employer] for eRx and Interaction Alerts* 12/20/19 15 Active Encounters Encounter Location Date Provider Diagnosis [address] [id number] 01/20/2025 BOGDAN GÓMEZ Tinea unguium B35.1 ; Pain in right foot M79.671 ; Pain in left foot M79.672 ; Atherosclerosis of [place] arteries of extremities with intermittent claudication, bilateral [...] foot (ICD-10 - M79.672) 01/20/2025 Atherosclerosis of [place] arteries of extremities with intermittent claudication, bilateral [...] [employer] for feet on calluses. Atherosclerosis of [place] ar teries of extremities with intermittent claudication, [...] develop. Provider Name:BOGDAN REEVES, 03/31/2025 01:30:00 PM, [address] [place] [address], [id number], Progress Notes * BRENDA WILSON MDOB: (89 yo F)Acc No.[id number]:01/20/2025 Patient: BRENDA MONREAL Provider: Adri GÓMEZ :1935 A ge:89 Y S ex:Female Date:01/20/2025 Address: [facility] Subjective: * Chief Complaints: * 1 . [...] seen by Dr. Encarnacion was 12/2024., Initials [facility]. * ROS: G eneral / Constitutional: [...] Medicationatenolol 25 MG Oral Tablet *Reorder from [facility] for eRx and Interaction Alerts*, Taking Lisinopril 10 MG Oral Tablet ORAL , Notes to Pharmacist: lisinopril 10 MG Oral TabletOriginal Medicationlisinopril 10 MG Oral Tablet *Reorder from [facility] for eRx and Interaction Alerts*, Taking Metoprolol Tartrate 25 MG Oral Tablet ORAL , Notes to Pharmacist: metoprolol tartrate 25 MG Oral TabletOriginal Medicationmetoprolol tartrate 25 MG Oral Tablet *Reorder from [facility] for eRx and Interaction Alerts*, Taking chlordiazepoxide hydrochloride 5 MG Oral Capsule ORAL , Notes to Pharmacist: chlordiazepoxide hydrochloride 5 MG Oral CapsuleOriginal Medicationchlordiazepoxide hydrochloride 5 MG Oral Capsule *Reorder from [facility] for eRx and Interaction Alerts*, Taking ciclopirox 80 MG/ML Topical Solution , Notes to Pharmacist: ciclopirox 80 MG/ML Topical SolutionOriginal Medicationciclopirox 80 MG/ML Topical Solution *Reorder from [facility] for eRx and Interaction Alerts*, Medication [...] - M79.672 4 . 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 3. 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 Call if any changes or concerns. 4. A cquired keratosis [keratoderma] palmaris et plantaris Notes: A total of 1 corns or calluses, as described in the note above, were cut and pared utilizing a #15 blade * Procedure Codes: 1 1055 TRIM SKIN LESION, Modifiers: Q8 , 47946 DEBRIDE NAIL, 6 OR MORE, Modifiers: 59 , Q8 * Follow Up: 1 0 - 12 weeks (Reason: At-Risk Foot care, sooner if problems develop.) * Billing Information: * Visit Code: * Procedure Codes: 53268 TRIM SKIN LESION. Modifiers: Q8 61601 DEBRIDE NAIL, 6 OR MORE. Modifiers: 59, Q8 * Electronic signature of STARR GÓMEZ DPM on 03/28/2025 at 02:09 PM CDT Sign off status: Pending * Provider: Adri GÓMEZ Date: 0 01/20/2025 Generated for Jonnathan henao/Cathy/eTransmitting on: 0 03/28/2025 02:09 PM CDT History and Physical Notes * [...]
--- OUTSIDE RECORDS SUMMARY | 2025-03-28 14:10 | XMS_ITS | Clinical Summary ---
Author Organization [facility] Address [address] [facility] [place] [address] Care Team Providers Care Design Engineering Intern Name Role Phone Casa Encarnacion MD Primary Care Provider [phone] Source Comments [facility],non-owned Affiliates and Associated Physician Practices is amultiple site organization consisting of ambulatory clinics and hospital sitesin [place], [place], [place] and [place]. This disclosure is being madepursuant to the Care Everywhere program and may not contain all information available regarding this patient. Last updated 18.[facility] Allergies Active Allergy Reactions Criticality Noted Date [...] be different from the original. Patient uses [employer]. 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 Gender Identity Not on file Sexual Orientation Not on file Last Filed Vital Signs Vital Sign Reading Time Taken Comments Blood Pressure 118/70 06/01/2024 12:55 PM CDT Pulse 62 11/05/2016 8:34 AM CHARGE ENTRY SPECIALIST Temperature 36.5 C (97.7 F) 06/01/2024 12:55 [...] CDT Office Visit [facility] [employer] [address] [place] [address] Aye Dao MD [address] [facility] [address] [place] [address] Health Maintenance Due Date Last Done Comments BONE DENSITY TESTING 1935 MEDICARE AWV 12 MONTHS 1935 DTAP/TDAP/TD VACCINES (1 - Tdap) 02/23/1956 ZOSTER VACCINE (1 of 2) 1987 PNEUMOCOCCAL VACCINE 50+ (2 of 2 - PCV20 or PCV21) 09/08/2010 09/08/2009 Respiratory Syncytial Virus (RSV) Vaccine Pt: or over 60 yrs (1 - 1-dose 75+ series) 02/23/2012 COVID-19 VACCINE ( - season) 2024 06/30/2022, 07/04/2021, 11/03/2020, Additional history exists DEPRESSION SCREENING 09/08/2024 INFLUENZA VACCINE (#1) 2025 2, 06/19/2021, 06/13/2020, Additional history exists HEPATITIS [...] Date of Phone Billing Address Personal/[place] [address] MEDICARE MEDICARE SUPPLEMENT PAYOR GENERIC * Guarantor: BRENDA WILSON Account Type Relation to Patient Date of Phone Billing Address Personal/[place] [address] MEDICARE MEDICARE SUPPLEMENT PAYOR GENERIC * Guarantor: BRENDA WILSON Account Type Relation to Patient Date of Phone Billing Address Personal/[place] [address] MEDICARE Member Subscriber Plan / Payer (Ef fective for All Dates) Name:Brenda Wilson Member ID:[id number] Relation to Subscriber:Self Name:Brenda Wilson Subscriber ID:[id number] Payer ID:Not on file Group ID:Not on file Type:Medicare Address: [id number] MEDICARE SUPPLEMENT PAYOR GENERIC Care Teams Design Engineering Intern Relationship Specialty Start Date End Date Casa Encarnacion MD [facility] - General 12/12/15
== END 2025-03-28 14:03 | disposition home or self-care (01) ==
LOC: CHSIMG 14:07
PROVIDERS: PCP Internal Medicine; Visit Provider Internal Medicine
DX: R22.1 Localized swelling, mass and lump, neck (principal)
CPT/HCPCS: 76536

== ENCOUNTER 2025-04-12 12:29 | Outpatient (CLI) | payer MEDICARE, SELFPAY ==
--- NOTE | ~2025-04-12 | DEXA_ITS ---
Bone Density Report Name: BRENDA WILSON Age: 89 Sex: Female Ethnicity: White Date of : 1935 Indication: postmenopausal osteoporosis; monitoring treatment; height loss; hysterectomy; secondary osteoporosis; Referring Provider: Casa Encarnacion Study: Bone densitometry was performed. Exam Date: April 12, 2025 Accession number: [id number] Bone Density: Region BMD T-score Z-score Classification AP Spine(L1, L3, L4) 0.820 -2.1 0.8 Osteopenia Femoral Neck (Left) 0.550 -2.7 -0.2 Osteoporosis Total Hip (Left) 0.667 -2.3 0.1 Osteopenia Femoral Neck (Right) 0.609 -2.2 0.4 Osteopenia Total Hip (Right) 0.675 -2.2 0.1 Osteopenia Femoral Neck Mean 0.579 -2.4 0.1 Osteopenia Total Hip Mean 0.671 -2.2 0.1 Osteopenia World Health Organization criteria for BMD impression classify patients as: Normal (T-score at or above -1.0), Osteopenia (T-score between -1.0 and -2.5), or Osteoporosis (T-score at or below -2.5). 10-year Fracture Risk: FRAX not reported because: Some T-score for Spine Total or Hip Total or Femoral Neck at or below -2.5 Treated for osteoporosis Previous Exams: Region Exam Age BMD T-score BMD Change BMD Change Date g/cm2 vs Baseline vs Previous AP Spine (L1,L3-L4) 04/12/2025 89 0.820 -2.1 0.005 (0.6%) 0.005 (0.6%) 04/02/2024 89 0.815 -2.2 Total Hip(Left) 04/12/2025 89 0.667 -2.3 0.028 (4.3%)* 0.028 (4.3%)* 04/02/2024 89 0.639 -2.5 Total Hip(Right) 04/12/2025 89 0.675 -2.2 0.011 (1.7%) 0.011 (1.7%) 04/02/2024 89 0.663 -2.3 *Denotes significance at 95% confidence level, LSC for AP Spine = 0.022 g/cm2, LSC for Total Hip = 0.027 g/cm2 Clinical Information Provided by Patient: Has secondary osteoporosis Is being treated for osteoporosis Has used the following medications: Fosamax (i.e. alendronate), Prolia (i.e. denosumab), Vitamin D, Calcium Has the following medical conditions: Hysterectomy Patient maximum height was 68.0 Menopause Age: 52 No regular weight bearing exercise Drinks caffeinated beverages Onset of menses at age 15 Number of children 3 Missed period for more than 6 months in a row Impression: The patient has osteoporosis, based on the Left Femoral Neck T-score. No significant bone loss was observed. Discussion: PATIENT UNDER TREATMENT WITH NO SIGNIFICANT BMD LOSS SINCE LAST EXAM. In an untreated patient, BMD typically declines with age. A lack of decline or gain is usually a sign that treatment is efficacious and fracture risk is reduced. It is important to ask patients whether they are taking their medications and to encourage continued and appropriate compliance with their osteoporosis therapies to reduce fracture risk. It is also important to review their risk factors and encourage appropriate calcium and vitamin D intakes, exercise, fall prevention and other lifestyle measures. Follow-Up: Consider a repeat BMD and Vertebral Fracture Assessment (VFA) exam in 2 years or sooner if medically necessary, to reassess this patient's status. Reported by: POLO on 04/13/2025 9:42:00 AM. Reviewed, dictated and finalized at location A.
--- OUTSIDE RECORDS SUMMARY | 2025-04-12 12:37 | XMS_ITS | Clinical Summary ---
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 [employer] Gender Identity Not on file Sexual Orientation Not on file Occupation Industry Job Start Date Job End Date retired Not on file Not on file Not on file Last Filed Vital Signs Vital Sign Reading Time Taken Comments Blood Pressure 140/82 11/08/2015 3:33 PM GRE[employer]ER [employer] Pulse - - Temperature - - Respiratory Rate - - Oxygen Saturation - - Inhaled Oxygen Concentration - - Weight 59 kg (130 lb) 11/08/2015 3:33 PM [employer]ER [employer] Height 167.6 cm (5' 6) 11/08/2015 3:33 PM [employer] Body Mass Index 20.98 11/08/2015 3:33 PM [employer] Plan of Treatment Health Maintenance Due Date [...] AND B CIGNA MCR SUPP VIKY VILLARREAL [facility] Care Teams Cnc Maintenance Technician Relationship Specialty Start Date End Date Casa Encarnacion MD [address] [place] [phone] PCP - General Internal Medicine 10/12/14
--- OUTSIDE RECORDS SUMMARY | 2025-04-12 12:37 | XMS_ITS | Clinical Summary ---
Author Organization [facility] Address [address] [facility] [place] [address] Care Team Providers Care Dietetic Intern Name Role Phone Casa Encarnacion MD Primary Care Provider [phone] Source Comments [facility]non-owned Affiliates and Associated Physician Practices is amultiple site organization consisting of ambulatory clinics and hospital sitesin [place], [place], [place] and [place]. This disclosure is being madepursuant to the Care Everywhere program and may not contain all information available regarding this patient. Last updated 18.[facility] Allergies Active Allergy Reactions Criticality Noted Date [...] be different from the original. Patient uses [employer]. Phone number [phone] Fax number [phone] Problem Noted Date Diagnosed Date Acute ischemic [...] on file Legal Sex Female 5:12 PM ORACLE DATABASE MANAGER Gender Identity Not on file Sexual Orientation Not on file Last Filed Vital Signs Vital Sign Reading Time Taken Comments Blood Pressure 118/70 06/01/2024 12:55 PM CDT Pulse 62 11/05/2016 8:34 AM ORACLE DATABASE MANAGER Temperature 36.5 C (97.7 F) 06/01/2024 12:55 [...] CDT Office Visit [facility] - TECHNICAL INSPECTOR [address] [place] [address] Aye Dao MD [address] [facility] [address] [place] [address] Health Maintenance Due Date Last [...] Date of Phone Billing Address Personal/[place] [address] MEDICARE MEDICARE SUPPLEMENT PAYOR GENERIC * Guarantor: BRENDA WILSON Account Type Relation to Patient Date of Phone Billing Address Personal/Family [place] [address] MEDICARE MEDICARE SUPPLEMENT PAYOR GENERIC * Guarantor: BRENDA WILSON Account Type Relation to Patient Date of Phone Billing Address Personal/[place] [address] MEDICARE Member Subscriber Plan / Payer (Ef fective for All Dates) Name:Brenda Wilson Member ID:[id number] Relation to Subscriber:Self Name:Brenda Wilson Subscriber ID:[id number] Payer ID:Not on file Group ID:Not on file Type:Medicare Address: [address] MEDICARE SUPPLEMENT PAYOR GENERIC Care Teams Dietetic Intern Relationship Specialty Start Date End Date Casa Encarnacion MD [facility] - General 12/12/15
--- OUTSIDE RECORDS SUMMARY | 2025-04-12 12:37 | XMS_ITS | Patient Health Record ---
Author Organization [facility] Address [address] [place], [place] [id number] Care Team Providers Care Physician Relations Representative Name Role Phone CYNDY DUTTON Unavailable [phone] Casa Encarnacion Unavailable Unavailable CYNDY OMER Unavailable [phone] PARVIN CORDOVA Unavailable [phone] BOGDAN GÓMEZ Unavailable [phone] Allergies No Known Allergies Reason For Referral No Information Medications Medication SIG (Take, Route, Frequency, Duration) Notes Start Date End Date Status Metoprolol Tartrate 25 MG Oral Tablet ORAL metoprolol tartrate 25 MG Oral TabletOriginal Medicationmetoprolol tartrate 25 MG Oral Tablet *Reorder from [employer] for eRx and Interaction Alerts* 09/02/20 12 Active Lisinopril 10 MG Oral Tablet ORAL lisinopril 10 MG Oral TabletOriginal Medicationlisinopril 10 MG Oral Tablet *Reorder from [employer] for eRx and Interaction Alerts* 09/02/20 12 Active ciclopirox 80 MG/ML Topical Solution ciclopirox 80 MG/ML Topical SolutionOriginal Medicationciclopirox 80 MG/ML Topical Solution *Reorder from [employer] for eRx and Interaction Alerts* 12/17/19 15 Active chlordiazepoxide hydrochloride 5 MG Oral Capsule ORAL chlordiazepoxide hydrochloride 5 MG Oral CapsuleOriginal Medicationchlordiazepoxide hydrochloride 5 MG Oral Capsule *Reorder from [employer] for eRx and Interaction Alerts* 09/02/20 12 Active Atenolol 25 MG Oral Tablet ORAL atenolol 25 MG Oral TabletOriginal Medicationatenolol 25 MG Oral Tablet *Reorder from [employer] for eRx and Interaction Alerts* 12/20/19 15 Active Immunizations Vaccine Route Administration Date Status Comme nts Influenza (split), 3 yrs and above Unknown 06/08/2014 A dministered Influenza (split), 3 yrs and above Unknown 06/08/2014 A dministered Influenza, high dose seasonal Unknown 06/13/2023 Admini stered Vital Signs Height-cm 162.56 cm 04/07/2025 Weight-kg 61.69 kg 04/07/2025 Height 64.00 in 04/07/2025 Weight 136 lbs 04/07/2025 BMI 23.34 kg/m2 04/07/2025 Encounters Encounter Location Date Provider Diagnosis [address] [id number] 01/20/2025 BOGDAN GÓMEZ Tinea unguium B35.1 ; Pain in right foot M79.671 ; Pain in left foot M79.672 ; Atherosclerosis of [place] arteries of extremities with intermittent claudication, bilateral legs I70.213 and Acquired keratosis [keratoderma] palmaris et plantaris L85.[address] [id number] 04/07/2025 BOGDAN GÓMEZ Tinea unguium B35.1 ; Pain in right foot M79.671 ; Pain in left foot M79.672 ; Atherosclerosis of [place] arteries of extremities with intermittent claudication, bilateral legs I70.213 and Acquired keratosis [keratoderma] palmaris et plantaris L85.[address] [id number] 04/29/2024 PARVIN CORDOVA Other hammer toe(s) (acquired), right foot M20.41 ; Tinea unguium B35.1 ; Other hammer toe(s) (acquired), left foot M20.42 ; Pain in right toe(s) M79.674 ; Pain in left toe(s) M79.675 ; Unspecified atherosclerosis of [place] arteries of extremities, bilateral legs I70.203 and Acquired keratosis [keratoderma] palmaris et plantaris L85.[address] [id number] 07/01/2024 PARVIN SHERMANZOILA Other hammer toe(s) (acquired), right foot M20.41 ; Tinea unguium B35.1 ; Other hammer toe(s) (acquired), left foot M20.42 ; Pain in right toe(s) M79.674 ; Pain in left toe(s) M79.675 ; Unspecified atherosclerosis of [place] arteries of extremities, bilateral legs I70.203 and Acquired keratosis [keratoderma] palmaris et plantaris L85.1 [facility] [address] [place], [place] [id number] 09/09/2024 CYNDY SNOOK Tinea unguium B35.1 ; Pain in right foot M79.671 ; Pain in left foot M79.672 ; Atherosclerosis of [place] arteries of extremities with intermittent claudication, bilateral legs I70.213 and Acquired keratosis [keratoderma] palmaris et plantaris L85.[address] [id number] 11/11/2024 CYDNY SNOOK Tinea unguium B35.1 ; Pain in right foot M79.671 ; Pain in left foot M79.672 ; Atherosclerosis of [place] arteries of extremities with intermittent claudication, bilateral [...] Use [employer] for feet on calluses. 04/07/2025 Tinea unguium (ICD-10 - B35.1) Nails [...] in left foot (ICD-10 - M79.672) 01/20/2025 Pain in left foot (ICD-10 - M79.672) 11/11/2024 Pain in left foot (ICD-10 - M79.672) 09/09/2024 Pain in left foot (ICD-10 - M79.672) 07/01/2024 Other hammer toe(s) (acquired), left foot (ICD-10 - M20.42) 04/29/2024 Other hammer toe(s) (acquired), left foot (ICD-10 - M20.42) 04/29/2024 Pain in right toe(s) (ICD-10 - M79.674) 07/01/2024 Pain in right toe(s) (ICD-10 - M79.674) 09/09/2024 Atherosclerosis of [place] arteries of extremities with intermittent claudication, bilateral legs (ICD-10 - I70.213) 11/11/2024 Atherosclerosis of [place] arteries of extremities with intermittent claudication, bilateral legs (ICD-10 - I70.213) 01/20/2025 Atherosclerosis of [place] arteries of extremities with intermittent claudication, bilateral legs (ICD-10 - I70.213) Check and protect LE bilateral daily. Call if any changes or concerns. 04/07/2025 Atherosclerosis of [place] arteries of extremities with intermittent claudication, bilateral legs (ICD-10 - I70.213) Check and protect LE bilateral daily. Call if any changes or concerns. 04/07/2025 Acquired keratosis [keratoderma] palmaris et plantaris (ICD-10 - L85.1) A total of 1 corns or calluses, as described in the note above, were cut and pared utilizing a #15 blade 01/20/2025 Acquired keratosis [keratoderma] palmaris et plantaris [...] (ICD-10 - M79.675) 07/01/2024 Unspecified atherosclerosis of [place] arteries of extremities, bilateral legs (ICD-10 - I70.203) Patient educated on risks and aggravating factors of PVD, including conservative treatment options such as a diet and exercise regimen to aid in slowing progression of vascular disease 04/29/2024 Unspecified atherosclerosis of [place] arteries of extremities, bilateral legs (ICD-10 - [...] Treatment Next Appt Details Provider Name:BOGDAN REEVES, 06/09/2025 11:10:00 AM, [address] [place] [address], [id number], Insurance Providers Payer Name Payer Address Payer Phone Subscriber Number Group Number Insured Name Patient Relationship to Insured Coverage Start Date Coverage End Date Medicare Part B [place] [address] [place] [address] [id number] BRENDA WILSON Self - patient is the insured [facility] [address] [place] [phone] [id number] BRENDA WILSON Self - patient is the insured 5
--- OUTSIDE RECORDS SUMMARY | 2025-04-12 12:37 | XMS_ITS | Clinical Summary ---
Author Organization [facility] Address [facility] [place] [address] Care Team Providers Care Director Of Sports Performance Name Role Phone Casa Encarnacion MD Primary Care Provider [phone] Allergies Active Allergy Reactions Criticality Noted Date [...] Diagnosed Date Confusion 01/28/2020 Acute ischemic stroke ([facility]HCC [facility]) 01/26/20 Family History Medical History Relation Comments [...] 10:26 AM CDT Height 167.6 cm (5' 6) 01/15/2024 10:26 AM CDT Body Mass Index [...] this topic Medical Devices Implanted Type Area Wet End Operator Device Identifier Shelf Expiration Date Model / Serial / Lot Iol [employer]ecnis Simplicity Dcb00 - [id number] Implanted:Qty: 1 on 01/21/2024 by Catherine Newman MD at [facility] Lens Left: Eye [employer] [id number] 05/05/2026 DCB00 / [id number] / DCB00 Tecnis 1-Piece Iol Implanted:Qty: 1 on 12/24/2023 by Catherine Newman MD at 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
--- OUTSIDE RECORDS SUMMARY | 2025-04-12 12:37 | XMS_ITS ---
Author Organization [facility] Address [address] [place], [place] [address] Care Team Providers Care Buildings Painter Name Role Phone CYNYD DUTTON Unavailable [phone] Casa Encarnacion Unavailable Unavailable BOGDAN GÓMEZ Unavailable [phone] REASON FOR VISIT *General care Medications Medication SIG (Take, Route, Frequency, Duration) Notes Start Date End Date Status Metoprolol Tartrate 25 MG Oral Tablet ORAL metoprolol tartrate 25 MG Oral TabletOriginal Medicationmetoprolol tartrate 25 MG Oral Tablet *Reorder from [employer] for eRx and Interaction Alerts* 09/02/20 12 Active Lisinopril 10 MG Oral Tablet ORAL lisinopril 10 MG Oral TabletOriginal Medicationlisinopril 10 MG Oral Tablet *Reorder from [employer] for eRx and Interaction Alerts* 09/02/20 12 Active ciclopirox 80 MG/ML Topical Solution ciclopirox 80 MG/ML Topical SolutionOriginal Medicationciclopirox 80 MG/ML Topical Solution *Reorder from [employer] for eRx and Interaction Alerts* 12/17/19 15 Active chlordiazepoxide hydrochloride 5 MG Oral Capsule ORAL chlordiazepoxide hydrochloride 5 MG Oral CapsuleOriginal Medicationchlordiazepoxide hydrochloride 5 MG Oral Capsule *Reorder from [employer] for eRx and Interaction Alerts* 09/02/20 12 Active Atenolol 25 MG Oral Tablet ORAL atenolol 25 MG Oral TabletOriginal Medicationatenolol 25 MG Oral Tablet *Reorder from [employer] for eRx and Interaction Alerts* 12/20/19 15 Active Encounters Encounter Location Date Provider Diagnosis [address] [id number] 01/20/2025 BOGDAN GÓMEZ Tinea unguium B35.1 ; Pain in right foot M79.671 ; Pain in left foot M79.672 ; Atherosclerosis of [place] arteries of extremities with intermittent claudication, bilateral [...] foot (ICD-10 - M79.672) 01/20/2025 Atherosclerosis of [place] arteries of extremities with intermittent claudication, bilateral [...] [employer] for feet on calluses. Atherosclerosis of [place] ar teries of extremities with intermittent claudication, [...] sooner if problems develop. Provider Name:BOGDAN REEVES, 06/09/2025 11:10:00 AM, [address] [place] [address], [id number], Progress Notes * BRENDA WILSON MDOB: 7 (89 yo F)Acc No.[id number]:01/20/2025 Patient: BRENDA MONREAL Provider: Adri GÓMEZ :1935 A ge:89 Y S ex:Female Date:01/20/2025 Address: [facility] Subjective: * Chief Complaints: * 1 . [...] seen by Dr. Encarnacion was 12/2024., Initials [facility]. * ROS: G eneral / Constitutional: [...] Medicationatenolol 25 MG Oral Tablet *Reorder from [facility] for eRx and Interaction Alerts*, Taking Lisinopril 10 MG Oral Tablet ORAL , Notes to Pharmacist: lisinopril 10 MG Oral TabletOriginal Medicationlisinopril 10 MG Oral Tablet *Reorder from [facility] for eRx and Interaction Alerts*, Taking Metoprolol Tartrate 25 MG Oral Tablet ORAL , Notes to Pharmacist: metoprolol tartrate 25 MG Oral TabletOriginal Medicationmetoprolol tartrate 25 MG Oral Tablet *Reorder from [facility] for eRx and Interaction Alerts*, Taking chlordiazepoxide hydrochloride 5 MG Oral Capsule ORAL , Notes to Pharmacist: chlordiazepoxide hydrochloride 5 MG Oral CapsuleOriginal Medicationchlordiazepoxide hydrochloride 5 MG Oral Capsule *Reorder from [facility] for eRx and Interaction Alerts*, Taking ciclopirox 80 MG/ML Topical Solution , Notes to Pharmacist: ciclopirox 80 MG/ML Topical SolutionOriginal Medicationciclopirox 80 MG/ML Topical Solution *Reorder from [facility] for eRx and Interaction Alerts*, Medication [...] - M79.672 4 . A therosclerosis of [place] arteries of extremities with intermittent claudication, bilateral [...] feet on calluses. 3. A therosclerosis of [place] arteries of extremities with intermittent claudication, bilateral legs Notes: Check and protect LE bilateral daily. Call if any changes or concerns. 4. A cquired keratosis [keratoderma] palmaris et plantaris Notes: A total of 1 corns or calluses, as described in the note above, were cut and pared utilizing a #15 blade * Procedure Codes: 1 1055 TRIM SKIN LESION, Modifiers: Q8 , 39959 DEBRIDE NAIL, 6 OR MORE, Modifiers: 59 , Q8 * Follow Up: 1 0 - 12 weeks (Reason: At-Risk Foot care, sooner if problems develop.) * Billing Information: * Visit Code: * Procedure Codes: 10080 TRIM SKIN LESION. Modifiers: Q8 65608 DEBRIDE NAIL, 6 OR MORE. Modifiers: 59, Q8 * Electronic signature of STARR GÓMEZ DPM on 04/12/2025 at 12:36 PM CDT Sign off status: Pending * Provider: Adri GÓMEZ Date: 0 01/20/2025 Generated for Jonnathan henao/Cathy/eTransmitting on: 0 04/12/2025 12:36 PM CDT History and Physical Notes * [...]
--- OUTSIDE RECORDS SUMMARY | 2025-04-12 12:37 | XMS_ITS ---
Author Organization [facility] Address [address] [place], [place] [address] Care Team Providers Care Transistor Tester Name Role Phone CYNDY DUTTON Unavailable [phone] Casa Encarnacion Unavailable Unavailable BOGDAN GÓMEZ Unavailable [phone] Allergies No Known Allergies REASON FOR VISIT *General care Medications Medication SIG (Take, Route, Frequency, Duration) Notes Start Date End Date Status Metoprolol Tartrate 25 MG Oral Tablet ORAL metoprolol tartrate 25 MG Oral TabletOriginal Medicationmetoprolol tartrate 25 MG Oral Tablet *Reorder from [employer] for eRx and Interaction Alerts* 09/02/20 12 Active Lisinopril 10 MG Oral Tablet ORAL lisinopril 10 MG Oral TabletOriginal Medicationlisinopril 10 MG Oral Tablet *Reorder from [employer] for eRx and Interaction Alerts* 09/02/20 12 Active ciclopirox 80 MG/ML Topical Solution ciclopirox 80 MG/ML Topical SolutionOriginal Medicationciclopirox 80 MG/ML Topical Solution *Reorder from [employer] for eRx and Interaction Alerts* 12/17/19 15 Active chlordiazepoxide hydrochloride 5 MG Oral Capsule ORAL chlordiazepoxide hydrochloride 5 MG Oral CapsuleOriginal Medicationchlordiazepoxide hydrochloride 5 MG Oral Capsule *Reorder from [employer] for eRx and Interaction Alerts* 09/02/20 12 Active Atenolol 25 MG Oral Tablet ORAL atenolol 25 MG Oral TabletOriginal Medicationatenolol 25 MG Oral Tablet *Reorder from [employer] for eRx and Interaction Alerts* 12/20/19 15 Active Vital Signs Height 64.00 in 04/07/2025 Weight 136 lbs 04/07/2025 BMI 23.34 kg/m2 04/07/2025 Height-cm 162.56 cm 04/07/2025 Weight-kg 61.69 kg 04/07/2025 Encounters Encounter Location Date Provider Diagnosis [address] [id number] 04/07/2025 BOGDAN GÓMEZ Tinea unguium B35.1 ; Pain in right foot M79.671 ; Pain in left foot M79.672 ; Atherosclerosis of [place] arteries of extremities with intermittent claudication, bilateral [...] foot (ICD-10 - M79.672) 04/07/2025 Atherosclerosis of [place] arteries of extremities with intermittent claudication, bilateral [...] [employer] for feet on calluses. Atherosclerosis of [place] ar teries of extremities with intermittent claudication, [...] develop. Provider Name:BOGDAN REEVES, 06/09/2025 11:10:00 AM, [address] [place] [address], [id number], Progress Notes * BRENDA WILSON MDOB: 7 (89 yo F)Acc No.[id number]:04/07/2025 Patient: Tony WALLSJEANA BRENDA M Provider: Adri GÓMEZ :1935 A ge:89 Y S ex:Female Date:04/07/2025 Address:[address] [place] [address] Subjective: * Chief Complaints: * 1 . [...] izziness, gait abnormality, headache. * Medical History: N o Reported Medical History.Medical History Verified. * Surgical History: D enies Past Surgical History. * Hospitalization/Major Diagno stic Procedure: D enies Past Hospitalization. * Family History: F ather: PRN - [...] Medicationatenolol 25 MG Oral Tablet *Reorder from [facility] for eRx and Interaction Alerts*, Taking Lisinopril 10 MG Oral Tablet ORAL , Notes to Pharmacist: lisinopril 10 MG Oral TabletOriginal Medicationlisinopril 10 MG Oral Tablet *Reorder from [facility] for eRx and Interaction Alerts*, Taking Metoprolol Tartrate 25 MG Oral Tablet ORAL , Notes to Pharmacist: metoprolol tartrate 25 MG Oral TabletOriginal Medicationmetoprolol tartrate 25 MG Oral Tablet *Reorder from [facility] for eRx and Interaction Alerts*, Taking chlordiazepoxide hydrochloride 5 MG Oral Capsule ORAL , Notes to Pharmacist: chlordiazepoxide hydrochloride 5 MG Oral CapsuleOriginal Medicationchlordiazepoxide hydrochloride 5 MG Oral Capsule *Reorder from [facility] for eRx and Interaction Alerts*, Taking ciclopirox 80 MG/ML Topical Solution , Notes to Pharmacist: ciclopirox 80 MG/ML Topical SolutionOriginal Medicationciclopirox 80 MG/ML Topical Solution *Reorder from [facility] for eRx and Interaction Alerts*, Medication List reviewed and reconciled with the patient * Allergies: N .K.D.A. Objective: * Vitals: W t: 136 lbs, [...] - M79.672 4 . A therosclerosis of [place] arteries of extremities with intermittent claudication, bilateral [...] feet on calluses. 3. A therosclerosis of [place] arteries of extremities with intermittent claudication, bilateral [...] * Procedure Codes: * Electronic signature of STARR GÓMEZ DPM on 04/12/2025 at 12:37 PM CDT Sign off status: Pending * Provider: Adri GÓMEZ Date: 0 04/07/2025 Generated for Jonnathan henao/Cathy/Armand on: 0 04/12/2025 12:37 PM CDT History and Physical Notes * [...]
== END 2025-04-12 12:30 | disposition home or self-care (01) ==
LOC: CHSIMG 12:34
PROVIDERS: PCP Internal Medicine; Visit Provider Internal Medicine
DX: Z78.0 Asymptomatic menopausal state (principal); M81.0 Age-related osteoporosis without current pathological fracture; M85.89 Other specified disorders of bone density and structure, multiple sites
CPT/HCPCS: 77080

== ENCOUNTER 2025-06-28 13:28 | Outpatient (CLI) | payer MEDICARE, SELFPAY ==
[2025-06-28 13:46] LABS: Hematocrit 37.2 % (35.0-42.0); Hemoglobin 11.8 g/dL (11.7-13.8); Mean Corpuscular HGB Conc 31.7 g/dL (32-36); Mean Corpuscular Hemoglobin 30.3 pg (27.0-31.0); Mean Corpuscular Volume 95.6 fL (78.0-102.0); Platelet Count Result 291 K/mm3 (150-420); Red Blood Count 3.89 M/mm3 (4.20-5.40); White Blood Count 10.0 K/mm3 (4.8-10.8)
[2025-06-28 13:48] LABS: Add Urine Microscopic? YES; Appearance Urine Clear (Clear); Glucose Urine UA Negative (Negative); Leukocyte Esterase Ur 1+ (Negative); Nitrate Urine Negative (Negative); Specific Grav Ur 1.025 (1.010-1.020)
[2025-06-28 14:46] LABS: Alanine Aminotransferase 12 U/L (6-35); Albumin Level 4.0 g/dL (3.5-5.1); Alkaline Phosphatase 43 U/L (38-126); Anion Gap 5 mmol/L (4-12); Aspartate Amino Transferase 24 U/L (14-36); Bilirubin,Total 0.4 mg/dL (0.2-1.3); Blood Urea Nitrogen 17 mg/dL (7-17); Calcium 11.5 mg/dL (8.4-10.2); Carbon Dioxide 30 mmol/L (22-30); Chloride 108 mmol/L (98-107); Estimated Glomerular Filt Rate > 60; Glucose 108 mg/dL (65-110); Osmolality Calculated 298 mOsm/kg (285-295); Potassium 3.9 mmol/L (3.4-5.0); Sodium 143 mmol/L (137-145); Total Protein 6.4 g/dL (6.3-8.2)
== END 2025-06-28 13:29 | disposition home or self-care (01) ==
LOC: CHSLAB 13:29
PROVIDERS: PCP Internal Medicine; Visit Provider Internal Medicine
DX: R19.7 Diarrhea, unspecified (principal); N39.0 Urinary tract infection, site not specified
CPT/HCPCS: 36415; 80053; 81001; 85027; 87086

== ENCOUNTER 2025-07-05 14:49 | Outpatient (CLI) | payer MEDICARE, SELFPAY ==
--- OUTSIDE RECORDS SUMMARY | 2025-01-20 10:30 | XMS_ITS ---
Author Organization [facility] Address [address] [place], [place] [address] Care Team Providers Care Optical Goods Drilling Machine Operator Name Role Phone CYNDY DUTTON Unavailable [phone] Casa Encarnacion Unavailable Unavailable BOGDAN GÓMEZ Unavailable [phone] REASON FOR VISIT *General care Medications Medication SIG (Take, Route, Frequency, Duration) Notes Start Date End Date Status Metoprolol Tartrate 25 MG Oral Tablet ORAL metoprolol tartrate 25 MG Oral TabletOriginal Medicationmetoprolol tartrate 25 MG Oral Tablet *Reorder from [employer] for eRx and Interaction Alerts* 09/02/20 12 Active Lisinopril 10 MG Oral Tablet ORAL lisinopril 10 MG Oral TabletOriginal Medicationlisinopril 10 MG Oral Tablet *Reorder from [employer] for eRx and Interaction Alerts* 09/02/20 12 Active ciclopirox 80 MG/ML Topical Solution ciclopirox 80 MG/ML Topical SolutionOriginal Medicationciclopirox 80 MG/ML Topical Solution *Reorder from [employer] for eRx and Interaction Alerts* 12/17/19 15 Active chlordiazepoxide hydrochloride 5 MG Oral Capsule ORAL chlordiazepoxide hydrochloride 5 MG Oral CapsuleOriginal Medicationchlordiazepoxide hydrochloride 5 MG Oral Capsule *Reorder from [employer] for eRx and Interaction Alerts* 09/02/20 12 Active Atenolol 25 MG Oral Tablet ORAL atenolol 25 MG Oral TabletOriginal Medicationatenolol 25 MG Oral Tablet *Reorder from [employer] for eRx and Interaction Alerts* 12/20/19 15 Active Social History Social History Additional Details Category Social Info Options Details Migrated Social History Migrated Social History Smoking Status : Never smoked , History of tobacco use : Encounters Encounter Location Date Provider Diagnosis [address] [id number] 01/20/2025 BOGDAN GÓMEZ Tinea unguium B35.1 ; Pain in right foot M79.671 ; Pain in left foot M79.672 ; Atherosclerosis of [place] arteries of extremities with intermittent claudication, bilateral [...] foot (ICD-10 - M79.672) 01/20/2025 Atherosclerosis of [place] arteries of extremities with intermittent claudication, bilateral [...] Goldbond for feet on calluses. Atherosclerosis of [place] ar teries of extremities with intermittent claudication, [...] develop. Provider Name:BOGDAN REEVES, 08/18/2025 11:10:00 AM, [address] [place] [address], [id number], History and Physical Notes * HPI (History [...] BRENDA WILSON MDOB: 7 (89 yo F)Acc No.[id number]:01/20/2025 Patient: BRENDA MONREAL Provider: Adri GÓMEZ :1935 A ge:89 Y S ex:Female Date:01/20/2025 Address:[facility] [address] , [place] [address] Subjective: * Chief Complaints: * * General [...] seen by Dr. Encarnacion was 12/2024., Initials [facility]. * ROS: G eneral / Constitutional: [...] Medicationatenolol 25 MG Oral Tablet *[facility] for [facility]Rx and Interaction Alerts*Lisinopril 10 MG Oral Tablet ORAL , Notes to Pharmacist: lisinopril 10 MG Oral TabletOriginal Medicationlisinopril 10 MG Oral Tablet *Reorder from [facility] for eRx and Interaction Alerts*Metoprolol Tartrate 25 MG Oral Tablet ORAL , Notes to Pharmacist: metoprolol tartrate 25 MG Oral TabletOriginal Medicationmetoprolol tartrate 25 MG Oral Tablet *Reorder from [facility] for eRx and Interaction Alerts*chlordiazepoxide hydrochloride 5 MG Oral Capsule ORAL , Notes to Pharmacist: chlordiazepoxide hydrochloride 5 MG Oral CapsuleOriginal Medicationchlordiazepoxide hydrochloride 5 MG Oral Capsule *Reorder from [facility] for eRx and Interaction Alerts*ciclopirox 80 MG/ML Topical Solution , Notes to Pharmacist: ciclopirox 80 MG/ML Topical SolutionOriginal Medicationciclopirox 80 MG/ML Topical Solution *Reorder from [facility] for eRx and Interaction Alerts*Medication List reviewed and reconciled with the patientTaking Atenolol 25 MG Oral Tablet ORAL , Notes to Pharmacist: atenolol 25 MG Oral TabletOriginal Medicationatenolol 25 MG Oral Tablet *Reorder from [facility] for eRx and Interaction Alerts*Taking Lisinopril 10 MG Oral Tablet ORAL , Notes to Pharmacist: lisinopril 10 MG Oral TabletOriginal Medicationlisinopril 10 MG Oral Tablet *Reorder from [facility] for eRx and Interaction Alerts*Taking Metoprolol Tartrate 25 MG Oral Tablet ORAL , Notes to Pharmacist: metoprolol tartrate 25 MG Oral TabletOriginal Medicationmetoprolol tartrate 25 MG Oral Tablet *Reorder from [facility] for eRx and Interaction Alerts*Taking chlordiazepoxide hydrochloride 5 MG Oral Capsule ORAL , Notes to Pharmacist: chlordiazepoxide hydrochloride 5 MG Oral CapsuleOriginal Medicationchlordiazepoxide hydrochloride 5 MG Oral Capsule *Reorder from [facility] for eRx and Interaction Alerts*Taking ciclopirox 80 MG/ML Topical Solution , Notes to Pharmacist: ciclopirox 80 MG/ML Topical SolutionOriginal Medicationciclopirox 80 MG/ML Topical Solution *Reorder from [facility] for eRx and Interaction Alerts*Medication List reviewed [...] - M79.672 4 . A therosclerosis of [place] arteries of extremities with intermittent claudication, bilateral [...] feet on calluses. 3. A therosclerosis of [place] arteries of extremities with intermittent claudication, bilateral legs Notes: Check and protect LE bilateral daily. Call if any changes or concerns. 4. A cquired keratosis [keratoderma] palmaris et plantaris Notes: A total of 1 corns or calluses, as described in the note above, were cut and pared utilizing a #15 blade * Procedure Codes: 1 1055 TRIM SKIN LESION, Modifiers: Q8 42236 DEBRIDE NAIL, 6 OR MORE, Modifiers: 59 , Q8 * Follow Up: 1 0 - 12 weeks (Reason: At-Risk Foot care, sooner if problems develop.) Billing Information: * Procedure Codes: 41475 TRIM SKIN LESION. Modifiers: Q8 40362 DEBRIDE NAIL, 6 OR MORE. Modifiers: 59, Q8 * Electronic signature of STARR GÓMEZ DPM on 07/05/2025 at 05:13 PM CDT Sign off status: Pending * Provider: Adri GÓMEZ Date: 0 01/20/2025 Generated for Jonnathan henao/Cathy/Armand on: 1 05:13 PM CDT
--- OUTSIDE RECORDS SUMMARY | 2025-04-07 06:40 | XMS_ITS ---
Author Organization [facility] Address [address] [place], [place] [address] Care Team Providers Care Conveyancer Name Role Phone CYNDY DUTTON Unavailable [phone] Casa Encarnacion Unavailable Unavailable BOGDAN GÓMEZ Unavailable [phone] Allergies No Known Allergies REASON FOR VISIT *General care Medications Medication SIG (Take, Route, Frequency, Duration) Notes Start Date End Date Status Metoprolol Tartrate 25 MG Oral Tablet ORAL metoprolol tartrate 25 MG Oral TabletOriginal Medicationmetoprolol tartrate 25 MG Oral Tablet *Reorder from [employer] for eRx and Interaction Alerts* 09/02/20 12 Active Lisinopril 10 MG Oral Tablet ORAL lisinopril 10 MG Oral TabletOriginal Medicationlisinopril 10 MG Oral Tablet *Reorder from [employer] for eRx and Interaction Alerts* 09/02/20 12 Active ciclopirox 80 MG/ML Topical Solution ciclopirox 80 MG/ML Topical SolutionOriginal Medicationciclopirox 80 MG/ML Topical Solution *Reorder from [employer] for eRx and Interaction Alerts* 12/17/19 15 Active chlordiazepoxide hydrochloride 5 MG Oral Capsule ORAL chlordiazepoxide hydrochloride 5 MG Oral CapsuleOriginal Medicationchlordiazepoxide hydrochloride 5 MG Oral Capsule *Reorder from [employer] for eRx and Interaction Alerts* 09/02/20 12 Active Atenolol 25 MG Oral Tablet ORAL atenolol 25 MG Oral TabletOriginal Medicationatenolol 25 MG Oral Tablet *Reorder from [employer] for eRx and Interaction Alerts* 12/20/19 15 [...] 04/07/2025 Encounters Encounter Location Date Provider Diagnosis [address] [id number] 04/07/2025 BOGDAN GÓMEZ Tinea unguium B35.1 ; Pain in right foot M79.671 ; Pain in left foot M79.672 ; Atherosclerosis of [place] arteries of extremities with intermittent claudication, bilateral [...] foot (ICD-10 - M79.672) 04/07/2025 Atherosclerosis of [place] arteries of extremities with intermittent claudication, bilateral [...] [employer] for feet on calluses. Atherosclerosis of [place] ar teries of extremities with intermittent claudication, [...] develop. Provider Name:BOGDAN REEVES, 08/18/2025 11:10:00 AM, [address] [place] [address], [phone], History and Physical Notes * HPI (History [...] BRENDA WILSON MDOB: 7 (89 yo F)Acc No.[id number]:04/07/2025 Patient: BRENDA MONREAL Provider: Adri GÓMEZ :1935 A ge:89 Y S ex:Female Date:04/07/2025 Address:[address] [place] [address], [place] [address] Subjective: * Chief Complaints: * * General [...] Medicationatenolol 25 MG Oral Tablet *Reorder from [facility] for eRx and Interaction Alerts*Lisinopril 10 MG Oral Tablet ORAL , Notes to Pharmacist: lisinopril 10 MG Oral TabletOriginal Medicationlisinopril 10 MG Oral Tablet *Reorder from [facility] for eRx and Interaction Alerts*Metoprolol Tartrate 25 MG Oral Tablet ORAL , Notes to Pharmacist: metoprolol tartrate 25 MG Oral TabletOriginal Medicationmetoprolol tartrate 25 MG Oral Tablet *Reorder from [facility] for eRx and Interaction Alerts*chlordiazepoxide hydrochloride 5 MG Oral Capsule ORAL , Notes to Pharmacist: chlordiazepoxide hydrochloride 5 MG Oral CapsuleOriginal Medicationchlordiazepoxide hydrochloride 5 MG Oral Capsule *Reorder from [facility] for eRx and Interaction Alerts*ciclopirox 80 MG/ML Topical Solution , Notes to Pharmacist: ciclopirox 80 MG/ML Topical SolutionOriginal Medicationciclopirox 80 MG/ML Topical Solution *Reorder from [facility] for eRx and Interaction Alerts*Medication List reviewed and reconciled with the patientTaking Atenolol 25 MG Oral Tablet ORAL , Notes to Pharmacist: atenolol 25 MG Oral TabletOriginal Medicationatenolol 25 MG Oral Tablet *Reorder from [facility] for eRx and Interaction Alerts*Taking Lisinopril 10 MG Oral Tablet ORAL , Notes to Pharmacist: lisinopril 10 MG Oral TabletOriginal Medicationlisinopril 10 MG Oral Tablet *Reorder from [facility] for eRx and Interaction Alerts*Taking Metoprolol Tartrate 25 MG Oral Tablet ORAL , Notes to Pharmacist: metoprolol tartrate 25 MG Oral TabletOriginal Medicationmetoprolol tartrate 25 MG Oral Tablet *Reorder from [facility] for eRx and Interaction Alerts*Taking chlordiazepoxide hydrochloride 5 MG Oral Capsule ORAL , Notes to Pharmacist: chlordiazepoxide hydrochloride 5 MG Oral CapsuleOriginal Medicationchlordiazepoxide hydrochloride 5 MG Oral Capsule *Reorder from [facility] for eRx and Interaction Alerts*Taking ciclopirox 80 MG/ML Topical Solution , Notes to Pharmacist: ciclopirox 80 MG/ML Topical SolutionOriginal Medicationciclopirox 80 MG/ML Topical Solution *Reorder from [employer] for eRx and Interaction Alerts*Medication List reviewed [...] - M79.672 4 . A therosclerosis of [place] arteries of extremities with intermittent claudication, bilateral [...] feet on calluses. 3. A therosclerosis of [place] arteries of extremities with intermittent claudication, bilateral [...] SKIN LESIONS, 2 TO 4, Modifiers: Q8 70857 DEBRIDE NAIL, 6 OR MORE, Modifiers: 59 , Q8 * Follow Up: 1 0 - 12 weeks (Reason: At-Risk Foot care, sooner if problems develop.) Billing Information: * Procedure Codes: 30888 TRIM SKIN LESIONS, 2 TO 4. Modifiers: Q8 43100 DEBRIDE NAIL, 6 OR MORE. Modifiers: 59, Q8 * Electronic signature of STARR GÓMEZ DPM on 07/05/2025 at 05:13 PM CDT Sign off status: Pending * Provider: Adri GÓMEZ Date: 0 04/07/2025 Generated for Jonnathan henao/Cathy/Armand on: 1 05:13 PM CDT
--- OUTSIDE RECORDS SUMMARY | 2025-06-09 06:10 | XMS_ITS ---
Author Organization [facility] Address [address] [place], [place] [address] Care Team Providers Care Turkey Picker Name Role Phone CYNDY DUTTON Unavailable [phone] Casa Encarnacion Unavailable Unavailable BOGDAN GÓMEZ Unavailable [phone] Allergies No Known Allergies REASON FOR VISIT *General care Medications Medication SIG (Take, Route, Frequency, Duration) Notes Start Date End Date Status Atenolol 25 MG Oral Tablet ORAL atenolol 25 MG Oral TabletOriginal Medicationatenolol 25 MG Oral Tablet *Reorder from [employer] for eRx and Interaction Alerts* 12/20/19 15 Active Lisinopril 10 MG Oral Tablet ORAL lisinopril 10 MG Oral TabletOriginal Medicationlisinopril 10 MG Oral Tablet *Reorder from [employer] for eRx and Interaction Alerts* 09/02/20 12 Active Metoprolol Tartrate 25 MG Oral Tablet ORAL metoprolol tartrate 25 MG Oral TabletOriginal Medicationmetoprolol tartrate 25 MG Oral Tablet *Reorder from [employer] for eRx and Interaction Alerts* 09/02/20 12 Active chlordiazepoxide hydrochloride 5 MG Oral Capsule ORAL chlordiazepoxide hydrochloride 5 MG Oral CapsuleOriginal Medicationchlordiazepoxide hydrochloride 5 MG Oral Capsule *Reorder from [employer] for eRx and Interaction Alerts* 09/02/20 12 Active ciclopirox 80 MG/ML Topical Solution ciclopirox 80 MG/ML Topical SolutionOriginal Medicationciclopirox 80 MG/ML Topical Solution *Reorder from [employer] for eRx and Interaction Alerts* 04/10/20 15 [...] 06/09/2025 Encounters Encounter Location Date Provider Diagnosis [address] [id number] 06/09/2025 BOGDAN GÓMEZ Tinea unguium B35.1 ; Pain in right foot M79.671 ; Pain in left foot M79.672 ; Atherosclerosis of [place] arteries of extremities with intermittent claudication, bilateral [...] foot (ICD-10 - M79.672) 06/09/2025 Atherosclerosis of [place] arteries of extremities with intermittent claudication, bilateral [...] [employer] for feet on calluses. Atherosclerosis of [place] ar teries of extremities with intermittent claudication, [...] develop. Provider Name:BOGDAN REEVES, 08/18/2025 11:10:00 AM, [address] [place] [address], [id number], History and Physical Notes * HPI (History [...] BRENDA WILSON MDOB: 7 (89 yo F)Acc No.[id number]:06/09/2025 Patient: BRENDA MONREAL Provider: Adri GÓMEZ :1935 A ge:89 Y S ex:Female Date:06/09/2025 Address:[address] [place] [address], [id number] Subjective: * Chief Complaints: * * [facility] and Interaction [facility]*Lisinopril [...] Medicationciclopirox 80 MG/ML Topical Solution *Reorder from [employer] for eRx and Interaction Alerts*Medication List reviewed [...] - M79.672 4 . A therosclerosis of [place] arteries of extremities with intermittent claudication, bilateral [...] feet on calluses. 3. A therosclerosis of [place] arteries of extremities with intermittent claudication, bilateral [...] of STARR GÓMEZ DPM on 07/05/2025 at 05:14 PM CDT Sign off status: Pending * Provider: Adri GÓMEZ Date: Generated for Jonnathan Rg/Armand on: 05:14 PM CDT
--- NOTE | ~2025-07-05 | XR_ITS ---
EXAMINATION: XR wrist LT min 3V, 07/05/2025 15:10 CDT HISTORY: INJURY L WRIST COMPARISON: No comparisons available. Findings: Slightly displaced impacted fracture distal radius. No significant degenerative changes. Soft tissues unremarkable. Impression: Distal radial fracture Reviewed, dictated and finalized at location P. Impression: Distal radial fracture
--- NOTE | ~2025-07-05 | XR_ITS ---
EXAMINATION: XR hand LT min 3V, 07/05/2025 15:10 CDT HISTORY: INJURY L WRIST COMPARISON: No comparisons available. Findings: No acute fracture or malalignment. Moderate to severe degenerative changes of the distal and proximal interphalangeal joints as well as the first metacarpal carpal joint. Soft tissues unremarkable. Impression: No acute fracture or malalignment. Reviewed, dictated and finalized at location P. Impression: No acute fracture or malalignment.
--- NOTE | ~2025-07-05 | XR_ITS ---
EXAMINATION: XR forearm LT 2V, 07/05/2025 15:10 CDT HISTORY: INJURY L WRIST COMPARISON: No comparisons available. Findings: Fracture of the distal radius redemonstrated. No additional fracture or dislocation identified. No significant degenerative changes. Soft tissues unremarkable. Impression: Distal radial fracture Reviewed, dictated and finalized at location P. Impression: Distal radial fracture
--- OUTSIDE RECORDS SUMMARY | 2025-07-05 17:13 | XMS_ITS | Patient Health Record ---
Author Organization [facility] Address [address] [place], [place] [id number] Care Team Providers Care Authorization Nurse Name Role Phone CYNDY DUTTON Unavailable [phone] Casa Encarnacion Unavailable Unavailable CYNDY OMER Unavailable [phone] BOGDAN GÓMEZ Unavailable [phone] Allergies No Known Allergies Reason For Referral No Information Medications Medication SIG (Take, Route, Frequency, Duration) Notes Start Date End Date Status Atenolol 25 MG Oral Tablet ORAL atenolol 25 MG Oral TabletOriginal Medicationatenolol 25 MG Oral Tablet *Reorder from [employer] for eRx and Interaction Alerts* 12/20/19 15 Active Lisinopril 10 MG Oral Tablet ORAL lisinopril 10 MG Oral TabletOriginal Medicationlisinopril 10 MG Oral Tablet *Reorder from [employer] for eRx and Interaction Alerts* 09/02/20 12 Active Metoprolol Tartrate 25 MG Oral Tablet ORAL metoprolol tartrate 25 MG Oral TabletOriginal Medicationmetoprolol tartrate 25 MG Oral Tablet *Reorder from [employer] for eRx and Interaction Alerts* 09/02/20 12 Active chlordiazepoxide hydrochloride 5 MG Oral Capsule ORAL chlordiazepoxide hydrochloride 5 MG Oral CapsuleOriginal Medicationchlordiazepoxide hydrochloride 5 MG Oral Capsule *Reorder from [employer] for eRx and Interaction Alerts* 09/02/20 12 Active ciclopirox 80 MG/ML Topical Solution ciclopirox 80 MG/ML Topical SolutionOriginal Medicationciclopirox 80 MG/ML Topical Solution *Reorder from [employer] for eRx and Interaction Alerts* 12/17/19 15 Active Immunizations Vaccine Route Administration Date Status Comme nts Influenza, high dose seasonal Unknown 06/13/2023 Admini stered Influenza (split), 3 yrs and above Unknown 06/08/2014 A dministered Influenza (split), 3 yrs and above Unknown 06/08/2014 A dministered Social History Social History Additional Details Category Social Info Options Details Migrated Social History Migrated Social History Smoking Status : Never smoked , History of tobacco use : Vital Signs Height-cm 162.56 cm 06/09/2025 Weight-kg 63.5 kg 06/09/2025 Height 64.00 in 06/09/2025 Weight 140 lbs 06/09/2025 BMI 24.03 kg/m2 06/09/2025 Encounters Encounter Location Date Provider Diagnosis [address] [id number] 01/20/2025 BOGDAN GÓMEZ Tinea unguium B35.1 ; Pain in right foot M79.671 ; Pain in left foot M79.672 ; Atherosclerosis of [place] arteries of extremities with intermittent claudication, bilateral legs I70.213 and Acquired keratosis [keratoderma] palmaris et plantaris L85.[address] [id number] 04/07/2025 BOGDAN GÓMEZ Tinea unguium B35.1 ; Pain in right foot M79.671 ; Pain in left foot M79.672 ; Atherosclerosis of [place]et[place] arteries of extremities with intermittent claudication, bilateral legs I70.213 and Acquired keratosis [keratoderma] palmaris et plantaris L85.[address] [id number] 06/09/2025 BOGDAN GÓMEZ Tinea unguium B35.1 ; Pain in right foot M79.671 ; Pain in left foot M79.672 ; Atherosclerosis of [place]et[place] arteries of extremities with intermittent claudication, bilateral legs I70.213 and Acquired keratosis [keratoderma] palmaris et plantaris L85.1 [address] [place], [place] [id number] 09/09/2024 CYNDY OMER Tinea unguium B35.1 ; Pain in right foot M79.671 ; Pain in left foot M79.672 ; Atherosclerosis of venet[place] arteries of extremities with intermittent claudication, bilateral legs I70.213 and Acquired keratosis [keratoderma] palmaris et plantaris L85.[address] [id number] 11/11/2024 CYNDY OMER Tinea unguium B35.1 ; Pain in right foot M79.671 ; Pain in left foot M79.672 ; Atherosclerosis of venet[place] arteries of extremities with intermittent claudication, bilateral [...] Use [employer]bond for feet on calluses. 06/09/2025 Tinea unguium (ICD-10 - B35.1) Nails [...] in left foot (ICD-10 - M79.672) 04/07/2025 Pain in left foot (ICD-10 - M79.672) 01/20/2025 Pain in left foot (ICD-10 - M79.672) 11/11/2024 Pain in left foot (ICD-10 - M79.672) 09/09/2024 Pain in left foot (ICD-10 - M79.672) 09/09/2024 Atherosclerosis of venetie arteries of extremities with intermittent claudication, bilateral legs (ICD-10 - I70.213) 11/11/2024 Atherosclerosis of [place]et[place] arteries of extremities with intermittent claudication, bilateral legs (ICD-10 - I70.213) 01/20/2025 Atherosclerosis of venetie arteries of extremities with intermittent claudication, bilateral legs (ICD-10 - I70.213) Check and protect LE bilateral daily. Call if any changes or concerns. 04/07/2025 Atherosclerosis of [place]et[place] arteries of extremities with intermittent claudication, bilateral legs (ICD-10 - I70.213) Check and protect LE bilateral daily. Call if any changes or concerns. 06/09/2025 Atherosclerosis of venetie arteries of extremities with intermittent claudication, bilateral legs (ICD-10 - I70.213) Check and protect LE bilateral daily. Call if any changes or concerns. 06/09/2025 Acquired keratosis [keratoderma] palmaris et plantaris (ICD-10 - L85.1) A total of 2 corns or calluses, as described in the note above, were cut and pared utilizing a #15 blade 04/07/2025 Acquired keratosis [keratoderma] palmaris et plantaris [...] utilizing a #15 blade Plan Of Treatment Next Appt Details Provider Name:BOGDAN REEVES, 08/18/2025 11:10:00 AM, [address] [place] [address], [phone], Insurance Providers Payer Name Payer Address Payer Phone Subscriber Number Group Number Insured Name Patient Relationship to Insured Coverage Start Date Coverage End Date Medicare Part B [place] [address] [place] [address] [id number] BRENDA WILSON Self - patient is the insured [facility] [address] [place] [phone] [id number] BRENDA WILSON Self - patient is the insured 5
--- OUTSIDE RECORDS SUMMARY | 2025-07-05 17:13 | XMS_ITS | Clinical Summary ---
Author Organization [facility] Address [facility] [place] [address] Care Team Providers Care Ophthalmologist Retina Specialist Name Role Phone Casa Encarnacion MD Primary Care Provider [phone] Allergies Active Allergy Reactions Criticality Noted Date [...] Diagnosed Date Confusion 01/28/2020 Acute ischemic stroke 01/26/2020 Family History Medical History Relation Comments No [...] 1-dose 75+ series) 02/23/2012 Pneumococcal Vaccine: 50+ Years (2 of 2 - PCV20 or PCV21) 03/04/2017 03/04/2016 COVID-19 Vaccine (2024-2 6 season) 2025 Influenza Adult (#1) 2025 06/08/2014, 05/31/2013, 06/25/2012 Hepatitis A Vaccines Aged Out No long er eligible based on patient's age to complete this topic Meningococcal B Vaccine Aged Out No l onger eligible based on patient's age to complete this topic Meningococcal Vaccine Aged Out No adam yuniel eligible based on patient's age to complete this topic RSV Immunizations Under 20 Months Aged Out No longer eligible b ased on patient's age to complete this topic Medical Devices Implanted Type Area Card Table Attendant Device Identifier Shelf Expiration Date Model / Serial / Lot Iol Tecnis Simplicity Dcb00 - [id number] Implanted:Qty: 1 on 01/21/2024 by Catherine Newman MD at [facility] Lens Left: Eye [employer] [id number] 05/05/2026 DCB00 / [id number] / DCB00 Tecnis 1-Piece Iol Implanted:Qty: 1 on 12/24/2023 by Catherine Newman MD at [facility] Right: Eye [employer] [id number] 04/14/2026 DCB00 / [id number] / [id number] Insurance MEDICARE MEDICARE [employer] 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
--- OUTSIDE RECORDS SUMMARY | 2025-07-05 17:14 | XMS_ITS | Clinical Summary ---
Author Organization [facility] Address [address] [facility] [place] [address] Phone Care Team Providers Care Yarn Bleaching Machine Operator Name Role Phone Casa Encarnacion [...] on file Legal Sex Female 9:11 AM BONDACTOR MACHINE OPERATOR Gender Identity Not on file Sexual Orientation Not on file Occupation Industry Job Start Date Job End Date retired Not on file Not on file Not on file Last Filed Vital Signs Vital Sign Reading Time Taken Comments Blood Pressure 140/82 11/08/2015 3:33 PM BONDACTOR MACHINE OPERATOR Pulse - - Temperature - - Respiratory Rate - - Oxygen Saturation - - Inhaled Oxygen Concentration - - Weight 59 kg (130 lb) 11/08/2015 3:33 PM BONDACTOR MACHINE OPERATOR Height 167.6 cm (5' 6) 11/08/2015 3:33 PM BONDACTOR MACHINE OPERATOR Body Mass Index 20.98 11/08/2015 3:33 PM BONDACTOR MACHINE OPERATOR Plan of Treatment Health Maintenance [...] AND B CIGNA MCR SUPP VIKY VILLARREAL [facility] Care Teams Yarn Bleaching Machine Operator Relationship Specialty Start Date End Date Casa Encarnacion MD [address] [place] [phone] PCP - General Internal Medicine 10/12/14
--- OUTSIDE RECORDS SUMMARY | 2025-07-05 17:14 | XMS_ITS | Clinical Summary ---
Author Organization [facility] Address [address] [facility] [place] [address] Care Team Providers Care Manager Customer Name Role Phone Casa Encarnacion MD Primary Care Provider [phone] Source Comments [facility],non-owned Affiliates and Associated Physician Practices is amultiple site organization consisting of ambulatory clinics and hospital sitesin [place], [place], [place] and [place]. This disclosure is being madepursuant to the Care Everywhere program and may not contain all information available regarding this patient. Last updated 18.[facility] Allergies Active Allergy Reactions Criticality Noted Date [...] hippurate (Hiprex) 1 GM tablet 4 Active methylPREDNISolone (Medrol Dosepak) 4 MG tablet 3 Active nitrofurantoin monohyd macro crystals (Macrobid) 100 MG capsule 4 Active sulfamethoxazole-t rimethoprim (Bactrim DS; Septra DS) 800-160 MG tablet 4 Active traMADol (Ultram) 50 MG tablet 4 Active gabapentin (Neurontin) 300 MG capsuleIndications :Vulvodynia TAKE TWO CAPSULES BY MOUTH THREE TIMES A DAY 540 capsule 3 4 Active nystatin (Mycostatin) powderIndications: History of candidiasis INSERT ONE CAPSULE IN THE VAGINA NIGHTLY DIRECTED. 30 Each 1 5 Active Active Problems Patient Care Coordination No te Formatting of this note migh t be different from the original. Patient uses [employer]. 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 Resolved Problems Problem Noted Date Diagnosed Date Resolved Date Bambi albicans infection 06/02/2019 0 05/24/2025 Urinary tract infection 06/25/201712/07 Overview (12/08/2017): IMO regulatory upload 06/24 Unspecified condition associ ated with female genital organs and menstrual cycle 12/12/201501/16 Encounters Date Type Department Care Team Description 05/24/2025 2:00 PM CDT Office Visit [facility] - SENIOR MATERIALS ANALYST [address] [place] [address] Aye Dao MD Vulvodynia (Primary Dx); History of candidiasis 05/24/2025 Travel 05/16/2025 Refill [facility] - SENIOR MATERIALS ANALYST [address] [place] [id number] Aye Dao MD Refill Request from Last 3 Months Immunizations Immunization Administration Dates Next Due INFLUENZA [...] drink = 0.6 oz pur e alcohol) PHQ-2 Answer Date Recorded Patient Health Questionnaire-2 Score 0 05/24/2025 Comments No Sex and Gender Information Value Date Recorded Sex Assigned at Not on file Legal Sex Female 5:12 PM UNDERCUTTER Gender Identity Not on file Sexual Orientation Not on file Last Filed Vital Signs Vital Sign Reading Time Taken Comments Blood Pressure 112/60 05/24/2025 1:36 PM CDT Pulse 62 11/05/2016 8:34 AM UNDERCUTTER Temperature 36.5 C (97.7 F) 05/24/2025 1:36 PM CDT Respiratory Rate - - Oxygen Saturation - - Inhaled Oxygen Concentration - - Weight 64.6 kg (142 lb 6.4 oz) 05/24/2025 1:36 P M CDT Height 167.6 cm (5' 6) 05/24/2025 1:36 PM CDT Body Mass Index 22.98 05/24/2025 1:36 PM CDT Plan of Treatment Upcoming Encounters Date Type Department Care Team (Late st Contact Info) Description 05/30/2026 2:00 PM CDT Office Visit [facility] - SENIOR MATERIALS ANALYST [address], [facility] [address] [place] [address] Aye Dao MD [address] [facility] [address] [place] [address] Health Maintenance Due Date Last Done Comments BONE DENSITY TESTING 1935 MEDICARE AWV 12 MONTHS 1935 DTAP/TDAP/TD VACCINES (1 - Tdap) 02/23/1956 ZOSTER VACCINE (1 of 2) 1987 PNEUMOCOCCAL VACCINE 50+ (2 of 2 - PCV20 or PCV21) 09/08/2010 09/08/2009 Respiratory Syncytial Virus (RSV) Vaccine Pt: or over 60 yrs (1 - 1-dose 75+ series) 02/23/2012 COVID-19 VACCINE ( - 2024- season) 2025 06/30/2022, 07/04/2021, 11/03/2020, Additional history exists INFLUENZA VACCINE (#1) 2025 3, 07/01/2022, 06/19/2021, Additional history exists DEPRESSION SCREENING Completed 05/24/2025 HEPATITIS B VACCINE Aged Out No longe [...] age to complete this topic Insurance [facility] * Guarantor: BRENDA WILSON Account Type Relation to Patient Date of Phone Billing Address Personal/[place] [address] MEDICARE [facility] LIFE [facility] CASUALTY * Guarantor: PARAMJITBRENDA HILLS Account Type Relation to Patient Date of Phone Billing Address [place] [address] MEDICARE MEDICARE SUPPLEMENT PAYOR GENERIC * Guarantor: PARAMJITBRENDA HILLS Account Type Relation to Patient Date of Phone Billing Address Personal/Family [place] [address] Care Teams Manager Customer Relationship Specialty Start Date End Date Casa Encarnacion MD PCP - General 12/12/15
== END 2025-07-05 14:50 | disposition home or self-care (01) ==
LOC: CHSIMG 14:51
PROVIDERS: PCP Internal Medicine; Visit Provider Internal Medicine
DX: S52.502A Unspecified fracture of the lower end of left radius, initial encounter for closed fracture (principal)
CPT/HCPCS: 73090; 73110; 73130

== ENCOUNTER 2025-07-14 12:30 | Outpatient (CLI) | payer MEDICARE, SELFPAY ==
--- OUTSIDE RECORDS SUMMARY | 2025-01-20 09:30 | XMS_ITS ---
Author Organization [facility] Address [address] [place], [place] [address] Care Team Providers Care Vice President Quality Improvement Name Role Phone CYNDY DUTTON Unavailable [phone] Casa Encarnacion Unavailable Unavailable BOGDAN GÓMEZ Unavailable [phone] REASON FOR VISIT *General care Medications Medication SIG (Take, Route, Frequency, Duration) Notes Start Date End Date Status Metoprolol Tartrate 25 MG Oral Tablet ORAL metoprolol tartrate 25 MG Oral TabletOriginal Medicationmetoprolol tartrate 25 MG Oral Tablet *Reorder from [employer] for eRx and Interaction Alerts* 09/02/20 12 Active Lisinopril 10 MG Oral Tablet ORAL lisinopril 10 MG Oral TabletOriginal Medicationlisinopril 10 MG Oral Tablet *Reorder from [employer] for eRx and Interaction Alerts* 09/02/20 12 Active ciclopirox 80 MG/ML Topical Solution ciclopirox 80 MG/ML Topical SolutionOriginal Medicationciclopirox 80 MG/ML Topical Solution *Reorder from [employer] for eRx and Interaction Alerts* 12/17/19 15 Active chlordiazepoxide hydrochloride 5 MG Oral Capsule ORAL chlordiazepoxide hydrochloride 5 MG Oral CapsuleOriginal Medicationchlordiazepoxide hydrochloride 5 MG Oral Capsule *Reorder from [employer] for eRx and Interaction Alerts* 09/02/20 12 Active Atenolol 25 MG Oral Tablet ORAL atenolol 25 MG Oral TabletOriginal Medicationatenolol 25 MG Oral Tablet *Reorder from [employer] for eRx and Interaction Alerts* 12/20/19 15 Active Social History Social History Additional Details Category Social Info Options Details Migrated Social History Migrated Social History Smoking Status : Never smoked , History of tobacco use : Encounters Encounter Location Date Provider Diagnosis [address] [id number] 01/20/2025 BOGDAN GÓMEZ Tinea unguium B35.1 ; Pain in right foot M79.671 ; Pain in left foot M79.672 ; Atherosclerosis of [place] arteries of extremities with intermittent claudication, bilateral legs I70.213 and Acquired keratosis [keratoderma] palmaris et plantaris L85.1 Assessments Encounter Date Diagnosis (ICD Code) Assessment Notes Treatment Notes Treatment Clinical Notes Section Notes 01/20/2025 Tinea unguium (ICD-10 - B35.1) Nails 1-5 Bilateral were debrided extensively with nail nippers and emery board, reducing length and girth to pink healthy tissue with any subungual debris and necrotic tissue removed 01/20/2025 Pain in right foot (ICD-10 - M79.671) Patient was instructed to try an OTC topical pain reliever/anti-i nflammatory such as Voltaren Gel, Aspercreme with Lidocaine, or Biofreeze etc over the affected areas. Spot test on hand or somewhere visible prior to starting to watch for possible rash/allergic reaction. Use Goldbond for feet on calluses. 01/20/2025 Pain in left foot (ICD-10 - M79.672) 01/20/2025 Atherosclerosis of [place] arteries of extremities with intermittent claudication, bilateral legs (ICD-10 - I70.213) Check and protect LE bilateral daily. Call if any changes or concerns. 01/20/2025 Acquired keratosis [keratoderma] palmaris et plantaris (ICD-10 [...] any subungual debris and necrotic tissue removed Pain in right foot Patient was instructed to try an OTC topical pain reliever/anti-inflammatory such as Voltaren Gel, Aspercreme with Lidocaine, or Biofreeze etc over the affected areas. Spot test on hand or somewhere visible prior to starting to watch for possible rash/allergic reaction. Use Goldbond for feet on calluses. Atherosclerosis of [place] ar teries of extremities with intermittent claudication, bilateral legs Check and protect LE bilateral daily. Call if any changes or concerns. Acquired keratosis [keratode rma] palmaris et plantaris A total of 1 corns or calluses, as described in the note above, were cut and pared utilizing a #15 blade Next Appt Details Follow Up: 10 - 12 weeks, Re ason: At-Risk Foot care, sooner if problems develop. Provider Name:BOGDAN REEVES, 08/18/2025 11:10:00 AM, [address] [place] [address], [id number], History and Physical Notes * HPI (History [...] Date last seen by Dr. Encarnacion was 12/2024., Initials [facility] Examination Category Sub-Category Detail Notes [...] inversion, and eversion in bilateral lower extremities Progress Notes * BRENDA WILSON MDOB: 7 (89 yo F)Acc No.[id number]:01/20/2025 Patient: BRENDA MONREAL Provider: Adri GÓMEZ :1935 A ge:89 Y S ex:Female Date:01/20/2025 Address:[facility] [address] , [place] [address] Subjective: * Chief Complaints: * * General care * HPI: H PI: General care P atient presents to the office for at risk foot care. Patient states that their nails are thickened, elongated and painful. Patient states that it is aggravated by shoe gear. Onset is gradual. Patient denies being diabetic., Patient denies taking prescription blood thinners but does take a daily aspirin., Date last seen by Dr. Encarnacion was 12/2024., Initials [facility]. * ROS: G eneral / Constitutional: Patient denies w eakness. M usculoskeletal: Patient complains of h ammertoes, flat feet/ planus. ? P eripheral Vascular: Patient denies b lanching of skin, cold extremities, decreased sensation in extremities. S kin: Patient complains of n ail changes, fungal nails, calluses and corns. N eurologic: Patient denies d izziness, gait abnormality, headache. * Family History: F ather: PRN - Father: :: Stroke,,known absent , :: Arthritis,,known absent . M other: PRN - Mother: :: Arthritis,,known absent . B rother: SIB - Brother: . S ister: SIB - Sister: .?Family History Verified.. * Social History: M igrated Social History: M igrated Social History: Smoking Status : Never smoked , History of tobacco use :. Social History Verified. * Medications: T akingAtenolol 25 MG Oral Tablet ORAL , Notes to Pharmacist: atenolol 25 MG Oral TabletOriginal Medicationatenolol 25 MG Oral Tablet *Re[facility] from [facility] for eRx and Interaction Alerts*Lisinopril 10 MG Oral Tablet ORAL , Notes to Pharmacist: lisinopril 10 MG Oral TabletOriginal Medicationlisinopril 10 MG Oral Tablet *Reorder from [facility] for eRx and Interaction Alerts*Metoprolol Tartrate 25 MG Oral Tablet ORAL , Notes to Pharmacist: metoprolol tartrate 25 MG Oral TabletOriginal Medicationmetoprolol tartrate 25 MG Oral Tablet *Reorder from [facility] for eRx and Interaction Alerts*chlordiazepoxide hydrochloride 5 MG Oral Capsule ORAL , Notes to Pharmacist: chlordiazepoxide hydrochloride 5 MG Oral CapsuleOriginal Medicationchlordiazepoxide hydrochloride 5 MG Oral Capsule *Reorder from [facility] for eRx and Interaction Alerts*ciclopirox 80 MG/ML Topical Solution , Notes to Pharmacist: ciclopirox 80 MG/ML Topical SolutionOriginal Medicationciclopirox 80 MG/ML Topical Solution *Reorder from [facility] for eRx and Interaction Alerts*Medication List reviewed and reconciled with the patientTaking Atenolol 25 MG Oral Tablet ORAL , Notes to Pharmacist: atenolol 25 MG Oral TabletOriginal Medicationatenolol 25 MG Oral Tablet *Reorder from [facility] for eRx and Interaction Alerts*Taking Lisinopril 10 MG Oral Tablet ORAL , Notes to Pharmacist: lisinopril 10 MG Oral TabletOriginal Medicationlisinopril 10 MG Oral Tablet *Reorder from [facility] for eRx and Interaction Alerts*Taking Metoprolol Tartrate 25 MG Oral Tablet ORAL , Notes to Pharmacist: metoprolol tartrate 25 MG Oral TabletOriginal Medicationmetoprolol tartrate 25 MG Oral Tablet *Reorder from [facility] for eRx and Interaction Alerts*Taking chlordiazepoxide hydrochloride 5 MG Oral Capsule ORAL , Notes to Pharmacist: chlordiazepoxide hydrochloride 5 MG Oral CapsuleOriginal Medicationchlordiazepoxide hydrochloride 5 MG Oral Capsule *Reorder from [facility] for eRx and Interaction Alerts*Taking ciclopirox 80 MG/ML Topical Solution , Notes to Pharmacist: ciclopirox 80 MG/ML Topical SolutionOriginal Medicationciclopirox 80 MG/ML Topical Solution *Reorder from [facility] for eRx and Interaction Alerts*Medication List reviewed and reconciled with the patient Objective: * Examination: P hysical Examination: General appearance: [...] - M79.672 4 . A therosclerosis of [place] arteries of extremities with intermittent claudication, bilateral legs - I70.213 5 . Acquired keratosis [keratoderma] palmaris et plantaris - L85.1 Plan: * Treatment: 2. P ain in right foot Notes: Patient was instructed to try an OTC topical pain reliever/anti-inflammatory such as Voltaren Gel, Aspercreme with Lidocaine, or Biofreeze etc over the affected areas. Spot test on hand or somewhere visible prior to starting to watch for possible rash/allergic reaction. Use Goldbond for feet on calluses. 3. A therosclerosis of [place] arteries of extremities with intermittent claudication, bilateral legs Notes: Check and protect LE bilateral daily. Call if any changes or concerns. 4. A cquired keratosis [keratoderma] palmaris et plantaris Notes: A total of 1 corns or calluses, as described in the note above, were cut and pared utilizing a #15 blade * Procedure Codes: 1 1055 TRIM SKIN LESION, Modifiers: Q8 38729 DEBRIDE NAIL, 6 OR MORE, Modifiers: 59 , Q8 * Follow Up: 1 0 - 12 weeks (Reason: At-Risk Foot care, sooner if problems develop.) Billing Information: * Procedure Codes: 96783 TRIM SKIN LESION. Modifiers: Q8 04877 DEBRIDE NAIL, 6 OR MORE. Modifiers: 59, Q8 * Electronic signature of STARR GÓMEZ DPM on 07/14/2025 at 07:34 PM RODEO RIDER Sign off status: Pending * Provider: Adri GÓMEZ Date: 0 01/20/2025 Generated for Jonnathan henao/Cathy/Rubiaitting on: 1 09/13/2024 07:34 PM RODEO RIDER
--- OUTSIDE RECORDS SUMMARY | 2025-04-07 05:40 | XMS_ITS ---
Author Organization [facility] Address [address] [place], [place] [address] Care Team Providers Care Creative Services Writer Name Role Phone CYNDY DUTTON Unavailable [phone] Casa Encarnacion Unavailable Unavailable BOGDAN GÓMEZ Unavailable [phone] Allergies No Known Allergies REASON FOR VISIT *General care Medications Medication SIG (Take, Route, Frequency, Duration) Notes Start Date End Date Status Metoprolol Tartrate 25 MG Oral Tablet ORAL metoprolol tartrate 25 MG Oral TabletOriginal Medicationmetoprolol tartrate 25 MG Oral Tablet *Reorder from [employer] for eRx and Interaction Alerts* 09/02/20 12 Active Lisinopril 10 MG Oral Tablet ORAL lisinopril 10 MG Oral TabletOriginal Medicationlisinopril 10 MG Oral Tablet *Reorder from [employer] for eRx and Interaction Alerts* 09/02/20 12 Active ciclopirox 80 MG/ML Topical Solution ciclopirox 80 MG/ML Topical SolutionOriginal Medicationciclopirox 80 MG/ML Topical Solution *Reorder from [employer] for eRx and Interaction Alerts* 12/17/19 15 Active chlordiazepoxide hydrochloride 5 MG Oral Capsule ORAL chlordiazepoxide hydrochloride 5 MG Oral CapsuleOriginal Medicationchlordiazepoxide hydrochloride 5 MG Oral Capsule *Reorder from [employer] for eRx and Interaction Alerts* 09/02/20 12 Active Atenolol 25 MG Oral Tablet ORAL atenolol 25 MG Oral TabletOriginal Medicationatenolol 25 MG Oral Tablet *Reorder from [employer] for eRx and Interaction Alerts* 12/20/19 15 [...] 04/07/2025 Encounters Encounter Location Date Provider Diagnosis [address] [id number] 04/07/2025 BOGDAN GÓMEZ Tinea unguium B35.1 ; Pain in right foot M79.671 ; Pain in left foot M79.672 ; Atherosclerosis of [place] arteries of extremities with intermittent claudication, bilateral [...] foot (ICD-10 - M79.672) 04/07/2025 Atherosclerosis of [place] arteries of extremities with intermittent claudication, bilateral [...] [employer] for feet on calluses. Atherosclerosis of [place] ar teries of extremities with intermittent claudication, [...] develop. Provider Name:BOGDAN REEVES, 08/18/2025 11:10:00 AM, [address] [place] [address], [phone], History and Physical Notes * HPI (History [...] BRENDA WILSON MDOB: 7 (89 yo F)Acc No.[id number]:04/07/2025 Patient: BRENDA MONREAL Provider: Adri GÓMEZ :1935 A ge:89 Y S ex:Female Date:04/07/2025 Address:[address] [place] [address], [place] [address] Subjective: * Chief Complaints: * * General [...] Medicationatenolol 25 MG Oral Tablet *Reorder from [facility] for eRx and Interaction Alerts*Lisinopril 10 MG Oral Tablet ORAL , Notes to Pharmacist: lisinopril 10 MG Oral TabletOriginal Medicationlisinopril 10 MG Oral Tablet *Reorder from [facility] for eRx and Interaction Alerts*Metoprolol Tartrate 25 MG Oral Tablet ORAL , Notes to Pharmacist: metoprolol tartrate 25 MG Oral TabletOriginal Medicationmetoprolol tartrate 25 MG Oral Tablet *Reorder from [facility] for eRx and Interaction Alerts*chlordiazepoxide hydrochloride 5 MG Oral Capsule ORAL , Notes to Pharmacist: chlordiazepoxide hydrochloride 5 MG Oral CapsuleOriginal Medicationchlordiazepoxide hydrochloride 5 MG Oral Capsule *Reorder from [facility] for eRx and Interaction Alerts*ciclopirox 80 MG/ML Topical Solution , Notes to Pharmacist: ciclopirox 80 MG/ML Topical SolutionOriginal Medicationciclopirox 80 MG/ML Topical Solution *Reorder from [facility] for eRx and Interaction Alerts*Medication List reviewed and reconciled with the patientTaking Atenolol 25 MG Oral Tablet ORAL , Notes to Pharmacist: atenolol 25 MG Oral TabletOriginal Medicationatenolol 25 MG Oral Tablet *Reorder from [facility] for eRx and Interaction Alerts*Taking Lisinopril 10 MG Oral Tablet ORAL , Notes to Pharmacist: lisinopril 10 MG Oral TabletOriginal Medicationlisinopril 10 MG Oral Tablet *Reorder from [facility] for eRx and Interaction Alerts*Taking Metoprolol Tartrate 25 MG Oral Tablet ORAL , Notes to Pharmacist: metoprolol tartrate 25 MG Oral TabletOriginal Medicationmetoprolol tartrate 25 MG Oral Tablet *Reorder from [facility] for eRx and Interaction Alerts*Taking chlordiazepoxide hydrochloride 5 MG Oral Capsule ORAL , Notes to Pharmacist: chlordiazepoxide hydrochloride 5 MG Oral CapsuleOriginal Medicationchlordiazepoxide hydrochloride 5 MG Oral Capsule *Reorder from [facility] for eRx and Interaction Alerts*Taking ciclopirox 80 MG/ML Topical Solution , Notes to Pharmacist: ciclopirox 80 MG/ML Topical SolutionOriginal Medicationciclopirox 80 MG/ML Topical Solution *Reorder from [email or web address] for eRx and Interaction Alerts*Medication List reviewed [...] - M79.672 4 . A therosclerosis of [place] arteries of extremities with intermittent claudication, bilateral [...] feet on calluses. 3. A therosclerosis of [place] arteries of extremities with intermittent claudication, bilateral [...] SKIN LESIONS, 2 TO 4, Modifiers: Q8 57819 DEBRIDE NAIL, 6 OR MORE, Modifiers: 59 , Q8 * Follow Up: 1 0 - 12 weeks (Reason: At-Risk Foot care, sooner if problems develop.) Billing Information: * Procedure Codes: 77241 TRIM SKIN LESIONS, 2 TO 4. Modifiers: Q8 55927 DEBRIDE NAIL, 6 OR MORE. Modifiers: 59, Q8 * Electronic signature of STARR GÓMEZ DPM on 07/14/2025 at 07:34 PM OUTSIDE RIGGER Sign off status: Pending * Provider: Adri GÓMEZ Date: 0 04/07/2025 Generated for Jonnathan henao/Cathy/Rubiaitting on: 1 09/13/2024 07:34 PM OUTSIDE RIGGER
--- OUTSIDE RECORDS SUMMARY | 2025-06-09 05:10 | XMS_ITS ---
Author Organization [facility] Address [address] [place], [place] [address] Care Team Providers Care General Office Assistant Name Role Phone CYNDY DUTTON Unavailable [phone] Casa Encarnacion Unavailable Unavailable BOGDAN GÓMEZ Unavailable [phone] Allergies No Known Allergies REASON FOR VISIT *General care Medications Medication SIG (Take, Route, Frequency, Duration) Notes Start Date End Date Status Atenolol 25 MG Oral Tablet ORAL atenolol 25 MG Oral TabletOriginal Medicationatenolol 25 MG Oral Tablet *Reorder from [employer] for eRx and Interaction Alerts* 12/20/19 15 Active Lisinopril 10 MG Oral Tablet ORAL lisinopril 10 MG Oral TabletOriginal Medicationlisinopril 10 MG Oral Tablet *Reorder from [employer] for eRx and Interaction Alerts* 09/02/20 12 Active Metoprolol Tartrate 25 MG Oral Tablet ORAL metoprolol tartrate 25 MG Oral TabletOriginal Medicationmetoprolol tartrate 25 MG Oral Tablet *Reorder from [employer] for eRx and Interaction Alerts* 09/02/20 12 Active chlordiazepoxide hydrochloride 5 MG Oral Capsule ORAL chlordiazepoxide hydrochloride 5 MG Oral CapsuleOriginal Medicationchlordiazepoxide hydrochloride 5 MG Oral Capsule *Reorder from [employer] for eRx and Interaction Alerts* 09/02/20 12 Active ciclopirox 80 MG/ML Topical Solution ciclopirox 80 MG/ML Topical SolutionOriginal Medicationciclopirox 80 MG/ML Topical Solution *Reorder from [employer] for eRx and Interaction Alerts* 04/10/20 15 Active Social History Social History Additional Details Category Social Info Options Details Migrated Social History Migrated Social History Smoking Status : Never smoked , History of tobacco use : Vital Signs Height 64.00 in 06/09/2025 Weight 140 lbs 06/09/2025 BMI 24.03 kg/m2 06/09/2025 Height-cm 162.56 cm 06/09/2025 Weight-kg 63.5 kg 06/09/2025 Encounters Encounter Location Date Provider Diagnosis [address] [id number] 06/09/2025 BOGDAN GÓMEZ Tinea unguium B35.1 ; Pain in right foot M79.671 ; Pain in left foot M79.672 ; Atherosclerosis of [place] arteries of extremities with intermittent claudication, bilateral legs I70.213 and Acquired keratosis [keratoderma] palmaris et plantaris L85.1 Assessments Encounter Date Diagnosis (ICD Code) Assessment Notes Treatment Notes Treatment Clinical Notes Section Notes 06/09/2025 Tinea unguium (ICD-10 - B35.1) Nails 1-5 Bilateral were debrided extensively with nail nippers and emery board, reducing length and girth to pink healthy tissue with any subungual debris and necrotic tissue removed 06/09/2025 Pain in right foot (ICD-10 - M79.671) Patient was instructed to try an OTC topical pain reliever/anti-i nflammatory such as Voltaren Gel, Aspercreme with Lidocaine, or Biofreeze etc over the affected areas. Spot test on hand or somewhere visible prior to starting to watch for possible rash/allergic reaction. Use Goldbond for feet on calluses. 06/09/2025 Pain in left foot (ICD-10 - M79.672) 06/09/2025 Atherosclerosis of [place]it[place] arteries of extremities with intermittent claudication, bilateral legs (ICD-10 - I70.213) Check and protect LE bilateral daily. Call if any changes or concerns. 06/09/2025 Acquired keratosis [keratoderma] palmaris et plantaris (ICD-10 - L85.1) A total of 2 corns or calluses, as described in the [...] Goldbond for feet on calluses. Atherosclerosis of [place]it[place] ar teries of extremities with intermittent claudication, bilateral legs Check and protect LE bilateral daily. Call if any changes or concerns. Acquired keratosis [keratode rma] palmaris et plantaris A total of 2 corns or calluses, as described in the note above, were cut and pared utilizing a #15 blade Next Appt Details Follow Up: 10 - 12 weeks, Re ason: At-Risk Foot care, sooner if problems develop. Provider Name:BOGDAN REEVES, 08/18/2025 11:10:00 AM, [address] [place] [address], [id number], History and Physical Notes * HPI (History [...] Date last seen by Dr. Encarnacion was may 2025., Initials ab Examination Category Sub-Category Detail Notes Category Not es Dermatologic Skin findings: Skin is thin, at rophic and lacking pedal hair Nail pathology: Nails 1, 2, 3, 4, an d 5 bilateral are elongated, thick, discolored, and dystrophic with subungual debris. They are painful to palpation Hypertrophic / hyperkeratotic lesion: pl cameron-medial aspect of the right 1st metatarsal head and lateral right 5th digit Neurologic Gross sensation Grossly intact t o [...] BRENDA WILSON MDOB: 7 (89 yo F)Acc No.[id number]:06/09/2025 Patient: BRENDA MONREAL Provider: Adri GÓMEZ :1935 A ge:89 Y S ex:Female Date:06/09/2025 Address:[address] [place] [address], [id number] Subjective: * Chief Complaints: * * General [...] Date last seen by Dr. Encarnacion was may 2025., Initials ab. * ROS: G eneral / Constitutional: Patient [...] MG Oral Tablet *Reorder from [facility] for eRx and Interaction Alerts*Lisinopril 10 MG Oral Tablet ORAL , Notes to Pharmacist: lisinopril 10 MG Oral TabletOriginal Medicationlisinopril 10 MG Oral Tablet *Reorder from [facility] for eRx and Interaction Alerts*Metoprolol Tartrate 25 MG Oral Tablet ORAL , Notes to Pharmacist: metoprolol tartrate 25 MG Oral TabletOriginal Medicationmetoprolol tartrate 25 MG Oral Tablet *Reorder from [facility] for eRx and Interaction Alerts*chlordiazepoxide hydrochloride 5 MG Oral Capsule ORAL , Notes to Pharmacist: chlordiazepoxide hydrochloride 5 MG Oral CapsuleOriginal Medicationchlordiazepoxide hydrochloride 5 MG Oral Capsule *Reorder from [facility] for eRx and Interaction Alerts*ciclopirox 80 MG/ML Topical Solution , Notes to Pharmacist: ciclopirox 80 MG/ML Topical SolutionOriginal Medicationciclopirox 80 MG/ML Topical Solution *Reorder from [facility] for eRx and Interaction Alerts*Medication List reviewed and reconciled with the patientTaking Atenolol 25 MG Oral Tablet ORAL , Notes to Pharmacist: atenolol 25 MG Oral TabletOriginal Medicationatenolol 25 MG Oral Tablet *Reorder from [facility] for eRx and Interaction Alerts*Taking Lisinopril 10 MG Oral Tablet ORAL , Notes to Pharmacist: lisinopril 10 MG Oral TabletOriginal Medicationlisinopril 10 MG Oral Tablet *Reorder from [facility] for eRx and Interaction Alerts*Taking Metoprolol Tartrate 25 MG Oral Tablet ORAL , Notes to Pharmacist: metoprolol tartrate 25 MG Oral TabletOriginal Medicationmetoprolol tartrate 25 MG Oral Tablet *Reorder from [facility] for eRx and Interaction Alerts*Taking chlordiazepoxide hydrochloride 5 MG Oral Capsule ORAL , Notes to Pharmacist: chlordiazepoxide hydrochloride 5 MG Oral CapsuleOriginal Medicationchlordiazepoxide hydrochloride 5 MG Oral Capsule *Reorder from [facility] for eRx and Interaction Alerts*Taking ciclopirox 80 MG/ML Topical Solution , Notes to Pharmacist: ciclopirox 80 MG/ML Topical SolutionOriginal Medicationciclopirox 80 MG/ML Topical Solution *Reorder from [employer] for eRx and Interaction Alerts*Medication List reviewed and reconciled with the patient * Allergies: N .K.SofieyesAllergies Verified. Objective: * Vitals: S hoe Size: 8, Wt: 140 lbs, Wt-k.5 kg, Ht: 64.00 in, Ht-cm: 162.56 cm, BMI: 24.03 Index, Body Surface Area: 1.69. * Examination: P hysical Examination: General appearance: A lert, pleasant, well-nourished and in no acute distress. D ermatologic: Skin findings: S kin is thin, atrophic and lacking pedal hair. Hypertrophic / hyperkeratotic lesion: p lantar-medial aspect of the right 1st metatarsal head and lateral right 5th digit. Nail pathology: N ails 1, 2, 3, [...] - M79.672 4 . A therosclerosis of chit[place] arteries of extremities with intermittent claudication, bilateral [...] feet on calluses. 3. A therosclerosis of [place]it[place] arteries of extremities with intermittent claudication, bilateral legs Notes: Check and protect LE bilateral daily. Call if any changes or concerns. 4. A cquired keratosis [keratoderma] palmaris et plantaris Notes: A total of 2 corns or calluses, as described in the note above, were cut and pared utilizing a #15 blade * Preventive Medicine: Screenings: F all risk screening F all Risk Assessment: N o falls in the past year. * Follow Up: 1 0 - 12 weeks (Reason: At-Risk Foot care, sooner if problems develop.) Billing Information: * Procedure Codes: * Electronic signature of STARR GÓMEZ DPM on 07/14/2025 at 07:34 PM GEL COAT SPRAYER Sign off status: Pending * Provider: Adri GÓMEZ Date: Generated for Jonnathan Rg/Armand on: 09/13/2024 07:34 PM GEL COAT SPRAYER
--- NOTE | ~2025-07-14 | XR_ITS ---
EXAMINATION: XR wrist LT min 3V, 07/14/2025 12:40 CUTTING MACHINE TENDER HISTORY: S52.532A - Colles' fracture of left radius, initial encou... COMPARISON: No comparisons available. Findings: Healing fracture of the distal radius, there is intra-articular extension with mild displacement and angulation towards the dorsal aspect. No significant degenerative changes. Soft tissues unremarkable. Impression: Healing fracture Reviewed, dictated and finalized at location P. ING MACHINE TENDER Impression: Healing fracture
--- OUTSIDE RECORDS SUMMARY | 2025-07-14 19:34 | XMS_ITS | Clinical Summary ---
Author Organization [facility] Address [address] [place] [address] Care Team Providers Care Booky Name Role Phone Casa Encarnacion MD Primary Care Provider [phone] Allergies Active Allergy Reactions Criticality Noted Date [...] this topic Medical Devices Implanted Type Area Ball Truing Machine Operator Device Identifier Shelf Expiration Date Model / Serial / Lot Iol Tecnis Simplicity Dcb00 - [id number] Implanted:Qty: 1 on 01/21/2024 by Catherine Newman MD at [facility] [place] Lens Left: Eye [employer] [id number] 05/05/2026 DCB00 / [id number] / DCB00 Tecnis 1-Piece Iol Implanted:Qty: 1 on 12/24/2023 by Catherine Newman MD at [facility] Right: Eye [employer] [id number] 04/14/2026 DCB00 / [id number] / [id number] Insurance MEDICARE 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
--- OUTSIDE RECORDS SUMMARY | 2025-07-14 19:34 | XMS_ITS | Clinical Summary ---
Author Organization [facility] Address [address] [facility] [place] [address] Phone Care Team Providers Care Package Designer Name Role Phone Casa Encarnacion MD [...] on file Legal Sex Female 9:11 AM INDUSTRIAL MAINTENANCE TECHNICIAN Gender Identity Not on file Sexual Orientation Not on file Occupation Industry Job Start Date Job End Date retired Not on file Not on file Not on file Last Filed Vital Signs Vital Sign Reading Time Taken Comments Blood Pressure 140/82 11/08/2015 3:33 PM INDUSTRIAL MAINTENANCE TECHNICIAN Pulse - - Temperature - - Respiratory Rate - - Oxygen Saturation - - Inhaled Oxygen Concentration - - Weight 59 kg (130 lb) 11/08/2015 3:33 PM INDUSTRIAL MAINTENANCE TECHNICIAN Height 167.6 cm (5' 6) 11/08/2015 3:33 PM INDUSTRIAL MAINTENANCE TECHNICIAN Body Mass Index 20.98 11/08/2015 3:33 PM INDUSTRIAL MAINTENANCE TECHNICIAN Plan of Treatment Health Maintenance Due Date [...] B CIGNA MCR SUPP VIKY VILLARREAL [facility] Care Teams Package Designer Relationship Specialty Start Date End Date Casa Encarnacion MD [address] [place] [phone] PCP - General Internal Medicine 10/12/14
--- OUTSIDE RECORDS SUMMARY | 2025-07-14 19:34 | XMS_ITS | Patient Health Record ---
Author Organization [facility] Address [address] [place], [place] [id number] Care Team Providers Care Pan Washer Hand Name Role Phone CYNDY DUTTON Unavailable [phone] Casa Encarnacion Unavailable Unavailable CYNDY OMER Unavailable [phone] BOGDAN GÓMEZ Unavailable [phone] Allergies No Known Allergies Reason For Referral No Information Medications Medication SIG (Take, Route, Frequency, Duration) Notes Start Date End Date Status Atenolol 25 MG Oral Tablet ORAL atenolol 25 MG Oral TabletOriginal Medicationatenolol 25 MG Oral Tablet *Reorder from [employer] for eRx and Interaction Alerts* 12/20/19 15 Active Lisinopril 10 MG Oral Tablet ORAL lisinopril 10 MG Oral TabletOriginal Medicationlisinopril 10 MG Oral Tablet *Reorder from [employer] for eRx and Interaction Alerts* 09/02/20 12 Active Metoprolol Tartrate 25 MG Oral Tablet ORAL metoprolol tartrate 25 MG Oral TabletOriginal Medicationmetoprolol tartrate 25 MG Oral Tablet *Reorder from [employer] for eRx and Interaction Alerts* 09/02/20 12 Active chlordiazepoxide hydrochloride 5 MG Oral Capsule ORAL chlordiazepoxide hydrochloride 5 MG Oral CapsuleOriginal Medicationchlordiazepoxide hydrochloride 5 MG Oral Capsule *Reorder from [employer] for eRx and Interaction Alerts* 09/02/20 12 [...] high dose seasonal Unknown 06/13/2023 Admini stered Social History Social History Additional Details Category Social Info Options Details Migrated Social History Migrated Social History Smoking Status : Never smoked , History of tobacco use : Vital Signs Height-cm 162.56 cm 06/09/2025 Weight-kg 63.5 kg 06/09/2025 Height 64.00 in 06/09/2025 Weight 140 lbs 06/09/2025 BMI 24.03 kg/m2 06/09/2025 Encounters Encounter Location Date Provider Diagnosis [address] [id number] 01/20/2025 BOGDAN GÓMEZ Tinea unguium B35.1 ; Pain in right foot M79.671 ; Pain in left foot M79.672 ; Atherosclerosis of [place] arteries of extremities with intermittent claudication, bilateral legs I70.213 and Acquired keratosis [keratoderma] palmaris et plantaris L85.[address] [id number] 04/07/2025 BOGDAN GÓMEZ Tinea unguium B35.1 ; Pain in right foot M79.671 ; Pain in left foot M79.672 ; Atherosclerosis of [place]eca arteries of extremities with intermittent claudication, bilateral legs I70.213 and Acquired keratosis [keratoderma] palmaris et plantaris L85.[address] [id number] 06/09/2025 BOGDAN GÓMEZ Tinea unguium B35.1 ; Pain in right foot M79.671 ; Pain in left foot M79.672 ; Atherosclerosis of [place] arteries of extremities with intermittent claudication, bilateral legs I70.213 and Acquired keratosis [keratoderma] palmaris et plantaris L85.1 [address] [place], [place] [id number] 09/09/2024 CYNDY OMER Tinea unguium B35.1 ; Pain in right foot M79.671 ; Pain in left foot M79.672 ; Atherosclerosis of [place]eca arteries of extremities with intermittent claudication, bilateral legs I70.213 and Acquired keratosis [keratoderma] palmaris et plantaris L85.[address] [id number] 11/11/2024 CYNDY OMER Tinea unguium B35.1 ; Pain in right foot M79.671 ; Pain in left foot M79.672 ; Atherosclerosis of seneca arteries of extremities with intermittent claudication, bilateral [...] foot (ICD-10 - M79.672) 09/09/2024 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 Call if any changes or concerns. 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 Call if any changes or concerns. 06/09/2025 Atherosclerosis of seneca arteries of extremities with intermittent claudication, bilateral [...] Details Provider Name:BOGDAN REEVES, 08/18/2025 11:10:00 AM, [address] [place] [address], [phone], Insurance Providers Payer Name Payer Address Payer Phone Subscriber Number Group Number Insured Name Patient Relationship to Insured Coverage Start Date Coverage End Date Medicare Part B [place] [address] [place] [address] [id number] BRENDA WILSON Self - patient is the insured [facility] [address] [place] [phone] [id number] BRENDA WILSON Self - patient is the insured 5
== END 2025-07-14 12:31 | disposition home or self-care (01) ==
LOC: CHSIMG 12:32
PROVIDERS: PCP Internal Medicine; Visit Provider Orthopaedic Surgery
DX: S52.532D Colles' fracture of left radius, subsequent encounter for closed fracture with routine healing (principal)
CPT/HCPCS: 73110

== ENCOUNTER 2025-08-15 10:02 | Outpatient (CLI) | payer MEDICARE, SELFPAY ==
--- NOTE | ~2025-08-15 | NM_ITS ---
EXAMINATION: NM parathyroid w imaging DATE: 08/15/2025 13:47 INDICATION: Hyperparathyroidism TECHNIQUE: 18.3 mCi Tc99m sestamibi (Cardiolite) was administered by intravenous route. Anterior images of the neck were obtained at 10 minutes and 2 hours. COMPARISON: None. FINDINGS/IMPRESSION: There is no focus of persistent activity in the area of the thyroid or mediastinum to suggest parathyroid adenoma. Reviewed, dictated and finalized at location A. TICS SPECIALIST
== END 2025-08-15 10:03 | disposition home or self-care (01) ==
PROVIDERS: PCP Internal Medicine; Visit Provider Nurse Practitioner Family
DX: E21.3 Hyperparathyroidism, unspecified (principal)
CPT/HCPCS: 78070; A9500

== ENCOUNTER 2025-08-16 21:58 | Emergency (ER) | payer MEDICARE, SELFPAY ==
--- OUTSIDE RECORDS SUMMARY | 2025-04-07 05:40 | XMS_ITS ---
Author Organization [facility] Address [address] [place], [place] [id number] Care Team Providers Care Metal Coater Name Role Phone CYNDY DUTTON Unavailable [phone] Casa Encarnacion Unavailable Unavailable BOGDAN GÓMEZ Unavailable [phone] Allergies No Known Allergies REASON FOR VISIT *General care Medications Medication SIG (Take, Route, Frequency, Duration) Notes Start Date End Date Status Metoprolol Tartrate 25 MG Oral Tablet ORAL metoprolol tartrate 25 MG Oral TabletOriginal Medicationmetoprolol tartrate 25 MG Oral Tablet *Reorder from [employer] for eRx and Interaction Alerts* 09/02/20 12 Active Lisinopril 10 MG Oral Tablet ORAL lisinopril 10 MG Oral TabletOriginal Medicationlisinopril 10 MG Oral Tablet *Reorder from [employer] for eRx and Interaction Alerts* 09/02/20 12 Active ciclopirox 80 MG/ML Topical Solution ciclopirox 80 MG/ML Topical SolutionOriginal Medicationciclopirox 80 MG/ML Topical Solution *Reorder from [employer] for eRx and Interaction Alerts* 12/17/19 15 Active chlordiazepoxide hydrochloride 5 MG Oral Capsule ORAL chlordiazepoxide hydrochloride 5 MG Oral CapsuleOriginal Medicationchlordiazepoxide hydrochloride 5 MG Oral Capsule *Reorder from [employer] for eRx and Interaction Alerts* 09/02/20 12 Active Atenolol 25 MG Oral Tablet ORAL atenolol 25 MG Oral TabletOriginal Medicationatenolol 25 MG Oral Tablet *Reorder from [employer] for eRx and Interaction Alerts* 12/20/19 15 Active Social History Social History Additional Details Category Social Info Options Details Migrated Social History Migrated Social History Smoking Status : Never smoked , History of tobacco use : Vital Signs Height 64.00 in 04/07/2025 Weight 136 lbs 04/07/2025 BMI 23.34 kg/m2 04/07/2025 Height-cm 162.56 cm 04/07/2025 Weight-kg 61.69 kg 04/07/2025 Encounters Encounter Location Date Provider Diagnosis [address] [id number] 04/07/2025 BOGDAN GÓMEZ Tinea unguium B35.1 ; Pain in right foot M79.671 ; Pain in left foot M79.672 ; Atherosclerosis of [place] arteries of extremities with intermittent claudication, bilateral legs I70.213 and Acquired keratosis [keratoderma] palmaris et plantaris L85.1 Assessments Encounter Date Diagnosis (ICD Code) Assessment Notes Treatment Notes Treatment Clinical Notes Section Notes 04/07/2025 Tinea unguium (ICD-10 - B35.1) Nails 1-5 Bilateral were debrided extensively with nail nippers and emery board, reducing length and girth to pink healthy tissue with any subungual debris and necrotic tissue removed 04/07/2025 Pain in right foot (ICD-10 - M79.671) Patient was instructed to try an OTC topical pain reliever/anti-i nflammatory such as Voltaren Gel, Aspercreme with Lidocaine, or Biofreeze etc over the affected areas. Spot test on hand or somewhere visible prior to starting to watch for possible rash/allergic reaction. Use [employer]bond for feet on calluses. 04/07/2025 Pain in left foot (ICD-10 - M79.672) 04/07/2025 Atherosclerosis of [place] arteries of extremities with intermittent claudication, bilateral legs (ICD-10 - I70.213) Check and protect LE bilateral daily. Call if any changes or concerns. 04/07/2025 Acquired keratosis [keratoderma] palmaris et plantaris (ICD-10 [...] [employer] for feet on calluses. Atherosclerosis of [place] band ar teries of extremities with intermittent claudication, [...] develop. Provider Name:BOGDAN REEVES, 08/18/2025 11:10:00 AM, [address] [place] [address], [id number], History and Physical Notes * HPI (History [...] Date last seen by Dr. Encarnacion was 02/2025., Initials nd Examination Category Sub-Category Detail Notes Category Not [...] BRENDA WILSON MDOB: 7 (89 yo F)Acc No.[id number]:04/07/2025 Patient: BRENDA MONREAL Provider: Adir GÓMEZ :1935 A ge:89 Y S ex:Female Date:04/07/2025 Address:[address] [place] [address], [place] [address] Subjective: * Chief Complaints: * * General [...] Date last seen by Dr. Encarnacion was 02/2025., Initials nd. * ROS: G eneral / Constitutional: Patient denies w eakness. M usculoskeletal: Patient complains of h ammertoes, flat feet/ planus. ? P eripheral Vascular: Patient denies b lanching of skin, cold extremities, decreased sensation in extremities. S kin: Patient complains of n ail changes, fungal nails, calluses and corns. N eurologic: Patient denies d izziness, gait abnormality, headache. * Medical History: Denies Past Medical History No Medical History Documented Medical History Verified * Surgical History: Denies Past Surgical History. Surgical History verified. * Hospitalization/Major Diagno stic Procedure: Denies Past Hospitalization. Hospitalization Verified. * Family History: F ather: PRN - [...] Medicationatenolol 25 MG Oral Tablet *Reorder from [facility] for eRx and Interaction Alerts*Lisinopril 10 MG Oral Tablet ORAL , Notes to Pharmacist: lisinopril 10 MG Oral TabletOriginal Medicationlisinopril 10 MG Oral Tablet *Reorder from [facility] for eRx and Interaction Alerts*Metoprolol Tartrate 25 MG Oral Tablet ORAL , Notes to Pharmacist: metoprolol tartrate 25 MG Oral TabletOriginal Medicationmetoprolol tartrate 25 MG Oral Tablet *Reorder from [facility] for eRx and Interaction Alerts*chlordiazepoxide hydrochloride 5 MG Oral Capsule ORAL , Notes to Pharmacist: chlordiazepoxide hydrochloride 5 MG Oral CapsuleOriginal Medicationchlordiazepoxide hydrochloride 5 MG Oral Capsule *Reorder from [facility] for eRx and Interaction Alerts*ciclopirox 80 MG/ML Topical Solution , Notes to Pharmacist: ciclopirox 80 MG/ML Topical SolutionOriginal Medicationciclopirox 80 MG/ML Topical Solution *Reorder from [facility] for eRx and Interaction Alerts*Medication List reviewed and reconciled with the patientTaking Atenolol 25 MG Oral Tablet ORAL , Notes to Pharmacist: atenolol 25 MG Oral TabletOriginal Medicationatenolol 25 MG Oral Tablet *Reorder from [facility] for eRx and Interaction Alerts*Taking Lisinopril 10 MG Oral Tablet ORAL , Notes to Pharmacist: lisinopril 10 MG Oral TabletOriginal Medicationlisinopril 10 MG Oral Tablet *Reorder from [facility] for eRx and Interaction Alerts*Taking Metoprolol Tartrate 25 MG Oral Tablet ORAL , Notes to Pharmacist: metoprolol tartrate 25 MG Oral TabletOriginal Medicationmetoprolol tartrate 25 MG Oral Tablet *Reorder from [facility] for eRx and Interaction Alerts*Taking chlordiazepoxide hydrochloride 5 MG Oral Capsule ORAL , Notes to Pharmacist: chlordiazepoxide hydrochloride 5 MG Oral CapsuleOriginal Medicationchlordiazepoxide hydrochloride 5 MG Oral Capsule *Reorder from [facility] for eRx and Interaction Alerts*Taking ciclopirox 80 MG/ML Topical Solution , Notes to Pharmacist: ciclopirox 80 MG/ML Topical SolutionOriginal Medicationciclopirox 80 MG/ML Topical Solution *Reorder from [employer] for eRx and Interaction Alerts*Medication List reviewed and reconciled with the patient * Allergies: Jeri .ChristineAllergies Verified. Objective: * Vitals: W t: 136 lbs, Wt-k.69 kg, Ht: 64.00 in, Ht-cm: 162.56 cm, BMI: 23.34 Index, Body Surface Area: 1.67. * Examination: P hysical Examination: General appearance: [...] - M79.672 4 . A therosclerosis of [place] band arteries of extremities with intermittent claudication, bilateral [...] feet on calluses. 3. A therosclerosis of [place] band arteries of extremities with intermittent claudication, bilateral [...] SKIN LESIONS, 2 TO 4, Modifiers: Q8 83620 DEBRIDE NAIL, 6 OR MORE, Modifiers: 59 , Q8 * Follow Up: 1 0 - 12 weeks (Reason: At-Risk Foot care, sooner if problems develop.) Billing Information: * Procedure Codes: 48524 TRIM SKIN LESIONS, 2 TO 4. Modifiers: Q8 52005 DEBRIDE NAIL, 6 OR MORE. Modifiers: 59, Q8 * Electronic signature of STARR GÓMEZ DPM on 08/16/2025 at 10:01 PM CANVAS CUTTER Sign off status: Pending * Provider: Adri GÓMEZ Date: 0 04/07/2025 Generated for Jonnathan henao/Cathy/Rubiaitting on: 1 10/17/2024 10:01 PM CANVAS CUTTER
--- OUTSIDE RECORDS SUMMARY | 2025-06-09 05:10 | XMS_ITS ---
Author Organization [facility] Address [address] [place], [place] [address] Care Team Providers Care Sales Representative Adding Machines Name Role Phone CYNDY DUTTON Unavailable [phone] Casa Encarnacion Unavailable Unavailable BOGDAN GÓMEZ Unavailable [phone] Allergies No Known Allergies REASON FOR VISIT *General care Medications Medication SIG (Take, Route, Frequency, Duration) Notes Start Date End Date Status Atenolol 25 MG Oral Tablet ORAL atenolol 25 MG Oral TabletOriginal Medicationatenolol 25 MG Oral Tablet *Reorder from [employer] for eRx and Interaction Alerts* 12/20/19 15 Active Lisinopril 10 MG Oral Tablet ORAL lisinopril 10 MG Oral TabletOriginal Medicationlisinopril 10 MG Oral Tablet *Reorder from [employer] for eRx and Interaction Alerts* 09/02/20 12 Active Metoprolol Tartrate 25 MG Oral Tablet ORAL metoprolol tartrate 25 MG Oral TabletOriginal Medicationmetoprolol tartrate 25 MG Oral Tablet *Reorder from [employer] for eRx and Interaction Alerts* 09/02/20 12 Active chlordiazepoxide hydrochloride 5 MG Oral Capsule ORAL chlordiazepoxide hydrochloride 5 MG Oral CapsuleOriginal Medicationchlordiazepoxide hydrochloride 5 MG Oral Capsule *Reorder from [employer] for eRx and Interaction Alerts* 09/02/20 12 Active ciclopirox 80 MG/ML Topical Solution ciclopirox 80 MG/ML Topical SolutionOriginal Medicationciclopirox 80 MG/ML Topical Solution *Reorder from [employer] for eRx and Interaction Alerts* 04/10/20 15 [...] 06/09/2025 Encounters Encounter Location Date Provider Diagnosis [address] [id number] 06/09/2025 BGODAN GÓMEZ Tinea unguium B35.1 ; Pain in right foot M79.671 ; Pain in left foot M79.672 ; Atherosclerosis of [place] arteries of extremities with intermittent claudication, bilateral [...] foot (ICD-10 - M79.672) 06/09/2025 Atherosclerosis of [place] arteries of extremities with intermittent claudication, bilateral [...] [employer]bond for feet on calluses. Atherosclerosis of [place] ar teries of extremities with intermittent claudication, [...] Provider Name:BOGDAN REEVES, 08/18/2025 11:10:00 AM, [address] [place] [address], [id number], History and Physical Notes * HPI (History [...] BRENDA WILSON MDOB: 7 (89 yo F)Acc No.[id number]:06/09/2025 Patient: BRENDA MONREAL Provider: Adri GÓMEZ :1935 A ge:89 Y S ex:Female Date:06/09/2025 Address:[address] [place] [address], [id number] Subjective: * Chief Complaints: * * General [...] Medicationatenolol 25 MG Oral Tablet *Reorder from [facility] for eRx and Interaction Alerts*Lisinopril 10 MG Oral Tablet ORAL , Notes to Pharmacist: lisinopril 10 MG Oral TabletOriginal Medicationlisinopril 10 MG Oral Tablet *Reorder from [facility] for eRx and Interaction Alerts*Metoprolol Tartrate 25 MG Oral Tablet ORAL , Notes to Pharmacist: metoprolol tartrate 25 MG Oral TabletOriginal Medicationmetoprolol tartrate 25 MG Oral Tablet *Reorder from [facility] for eRx and Interaction Alerts*chlordiazepoxide hydrochloride 5 MG Oral Capsule ORAL , Notes to Pharmacist: chlordiazepoxide hydrochloride 5 MG Oral CapsuleOriginal Medicationchlordiazepoxide hydrochloride 5 MG Oral Capsule *Reorder from [facility] for eRx and Interaction Alerts*ciclopirox 80 MG/ML Topical Solution , Notes to Pharmacist: ciclopirox 80 MG/ML Topical SolutionOriginal Medicationciclopirox 80 MG/ML Topical Solution *Reorder from [facility] for eRx and Interaction Alerts*Medication List reviewed and reconciled with the patientTaking Atenolol 25 MG Oral Tablet ORAL , Notes to Pharmacist: atenolol 25 MG Oral TabletOriginal Medicationatenolol 25 MG Oral Tablet *Reorder from [facility] for eRx and Interaction Alerts*Taking Lisinopril 10 MG Oral Tablet ORAL , Notes to Pharmacist: lisinopril 10 MG Oral TabletOriginal Medicationlisinopril 10 MG Oral Tablet *Reorder from [facility] for eRx and Interaction Alerts*Taking Metoprolol Tartrate 25 MG Oral Tablet ORAL , Notes to Pharmacist: metoprolol tartrate 25 MG Oral TabletOriginal Medicationmetoprolol tartrate 25 MG Oral Tablet *Reorder from [facility] for eRx and Interaction Alerts*Taking chlordiazepoxide hydrochloride 5 MG Oral Capsule ORAL , Notes to Pharmacist: chlordiazepoxide hydrochloride 5 MG Oral CapsuleOriginal Medicationchlordiazepoxide hydrochloride 5 MG Oral Capsule *Reorder from [facility] for eRx and Interaction Alerts*Taking ciclopirox 80 MG/ML Topical Solution , Notes to Pharmacist: ciclopirox 80 MG/ML Topical SolutionOriginal Medicationciclopirox 80 MG/ML Topical Solution *Reorder from [employer] for eRx and Interaction Alerts*Medication List reviewed [...] - M79.672 4 . A therosclerosis of [place]ahu[place] arteries of extremities with intermittent claudication, bilateral [...] feet on calluses. 3. A therosclerosis of [place] arteries of extremities with intermittent claudication, bilateral [...] SKIN LESIONS, 2 TO 4, Modifiers: Q8 84202 DEBRIDE NAIL, 6 OR MORE, Modifiers: 59 , Q8 * Preventive Medicine: Screenings: F all risk screening F all Risk Assessment: N o falls in the past year. * Follow Up: 1 0 - 12 weeks (Reason: At-Risk Foot care, sooner if problems develop.) Billing Information: * Procedure Codes: 02146 TRIM SKIN LESIONS, 2 TO 4. Modifiers: Q8 45444 DEBRIDE NAIL, 6 OR MORE. Modifiers: 59, Q8 * Electronic signature of STARR GÓMEZ DPM on 08/16/2025 at 10:01 PM ENGINEER TECHNICIAN Sign off status: Pending * Provider: Adri GÓMEZ Date: Generated for Jonnathan henao/Cathy/Armand on: 10/17/2024 10:01 PM ENGINEER TECHNICIAN
--- NOTE | ~2025-08-16 | XR_ITS ---
EXAM/PROCEDURE: [id number] HISTORY: fall/LEFT RIB PAIN COMPARISON: November 15, 2020 TECHNIQUE: Frontal chest x-ray and left rib series FINDINGS: Several left-sided rib fractures are present along the posterolateral margin including ribs 5, 7, 8, 9 and possibly T10 as well. Some of these ribs are significantly displaced. There is a small to moderate effusion/hemothorax along with contusion or consolidative changes in the left lung base. No pneumothorax or subphrenic free air seen. IMPRESSION: Multiple rib fractures with fluid accumulation in the left hemithorax and consolidative appearing changes possibly representing contusion. See chest CT report same date. Reviewed, dictated and finalized at location A. ER AND CHECKERER SPECIALS IMPRESSION: Multiple rib fractures with fluid accumulation in the left hemithorax and conso lidative appearing changes possibly representing contusion. See chest CT report same date.
--- NOTE | ~2025-08-16 | CT_ITS ---
EXAMINATION:CT diagnostic chest wo con DATE: 08/16/2025 22:46 INDICATION: Injury TECHNIQUE: Computed tomography (CT) of the chest was performed without intravenous contrast. The dose-length product (DLP) was 230.17 mGy-cm. COMPARISON: 06/21/2022 FINDINGS: Acute displaced fractures involving left-sided ribs [id number] and possibly 6 as well. Significant displacement of several these fractures present. Small pneumothorax. Small hemothorax and effusion with atelectatic changes as well in the lung bases. Mild contusion may also be present. Extensive edematous changes and probable small to moderate hematoma in the extrathoracic soft tissues along the extrathoracic margin of the rib fractures with moderate amount of emphysematous changes extending along the chest wall. 4.3 cm ascending thoracic aortic aneurysm not significantly changed in size. Endovascular features are not evaluated on this noncontrast exam. Central and main pulmonary artery is also mildly enlarged. Heart size upper limits normal. Small pericardial effusion not significantly changed. Right lung clear. The remainder the bones appear intact. Extensive coronary artery calcifications. No acute process seen in the visualized portions of the upper abdomen. Bilateral nephrolithiasis noted. IMPRESSION: Multiple left-sided rib fractures with small pneumothorax. Probable small hemothorax and lung contusion. There is also moderately severe infiltrative changes, emphysematous changes and hematoma formation along the left lateral chest wall. NOTE: Preliminary radiology report provided by [facility] radiologist/physician. Reviewed, dictated and finalized at location A. ERY GRINDER IMPRESSION: Multiple left-sided rib fractures with small pneumothorax. Probable small hemothorax and lung contusion. There is also moderately severe infiltrat johnathon changes, emphysematous changes and hematoma formation along the left latera l chest wall. NOTE: Preliminary radiology report provided by [facility] radiologist/physician.
--- OUTSIDE RECORDS SUMMARY | 2025-08-16 22:01 | XMS_ITS | Clinical Summary ---
Author Organization [facility] Address [address] [place] [address] Care Team Providers Care Gliding Pilot Instructor Name Role Phone Casa Encarnacion MD Primary Care Provider [phone] Allergies Active Allergy Reactions Criticality Noted Date [...] this topic Medical Devices Implanted Type Area Sodium Chlorite Operator Device Identifier Shelf Expiration Date Model / Serial / Lot Iol Tecnis Simplicity Dcb00 - [id number] Implanted:Qty: 1 on 01/21/2024 by Catherine Newman MD at [facility] Lens Left: Eye [employer] [id number] 05/05/2026 DCB00 / [id number] / DCB00 Tecnis 1-Piece Iol Implanted:Qty: 1 on 12/24/2023 by Catherine Newman MD at [facility] Right: Eye [employer] [id number] 04/14/2026 DCB00 / [id number] / [id number] Insurance MEDICARE MEDICARE [employer] Advance Directives * Full Code (Latest Code Status on File) Date Activated Date Inactivated Comments 01/26/2020 4:14 PM 01/31/2020 5:58 PM Care Teams Gliding Pilot Instructor Relationship Specialty Start Date End Date Casa Encarnacion MD [address] [place] [address] PCP - General INTERNAL MEDICINE 03/16/19
--- OUTSIDE RECORDS SUMMARY | 2025-08-16 22:01 | XMS_ITS | Patient Health Record ---
Author Organization [facility] Address [address] [place], [place] [id number] Care Team Providers Care Mold Checker Name Role Phone CYNDY DUTTON Unavailable [phone] Casa Encarnacion Unavailable Unavailable CYNDY OMER Unavailable [phone] BOGDAN GÓMEZ Unavailable [phone] Allergies No Known Allergies Reason For Referral No Information Medications Medication SIG (Take, Route, Frequency, Duration) Notes Start Date End Date Status Atenolol 25 MG Oral Tablet ORAL atenolol 25 MG Oral TabletOriginal Medicationatenolol 25 MG Oral Tablet *Reorder from COADE for eRx and Interaction Alerts* 12/20/19 15 Active Lisinopril 10 MG Oral Tablet ORAL lisinopril 10 MG Oral TabletOriginal Medicationlisinopril 10 MG Oral Tablet *Reorder from COADE for eRx and Interaction Alerts* 09/02/20 12 Active Metoprolol Tartrate 25 MG Oral Tablet ORAL metoprolol tartrate 25 MG Oral TabletOriginal Medicationmetoprolol tartrate 25 MG Oral Tablet *Reorder from COADE for eRx and Interaction Alerts* 09/02/20 12 Active chlordiazepoxide hydrochloride 5 MG Oral Capsule ORAL chlordiazepoxide hydrochloride 5 MG Oral CapsuleOriginal Medicationchlordiazepoxide hydrochloride 5 MG Oral Capsule *Reorder from COADE for eRx and Interaction Alerts* 09/02/20 12 [...] Encounters Encounter Location Date Provider Diagnosis [address] [id number] 01/20/2025 BOGDAN GÓMEZ Tinea unguium B35.1 ; Pain in right foot M79.671 ; Pain in left foot M79.672 ; Atherosclerosis of [place] arteries of extremities with intermittent claudication, bilateral legs I70.213 and Acquired keratosis [keratoderma] palmaris et plantaris L85.[address] [id number] 04/07/2025 BOGDAN GÓMEZ Tinea unguium B35.1 ; Pain in right foot M79.671 ; Pain in left foot M79.672 ; Atherosclerosis of [place] arteries of extremities with intermittent claudication, bilateral legs I70.213 and Acquired keratosis [keratoderma] palmaris et plantaris L85.[address] [id number] 06/09/2025 BOGDAN GÓMEZ Tinea unguium B35.1 ; Pain in right foot M79.671 ; Pain in left foot M79.672 ; Atherosclerosis of [place] arteries of extremities with intermittent claudication, bilateral legs I70.213 and Acquired keratosis [keratoderma] palmaris et plantaris L85.1 [place] [address] [place], [place] [id number] 09/09/2024 CYNDY OMER Tinea unguium B35.1 ; Pain in right foot M79.671 ; Pain in left foot M79.672 ; Atherosclerosis of [place] arteries of extremities with intermittent claudication, bilateral legs I70.213 and Acquired keratosis [keratoderma] palmaris et plantaris L85.[address] [id number] 11/11/2024 CYNDY OMER Tinea unguium B35.1 ; Pain in right foot M79.671 ; Pain in left foot M79.672 ; Atherosclerosis of [place] arteries of extremities with intermittent claudication, bilateral [...] foot (ICD-10 - M79.672) 09/09/2024 Atherosclerosis of [place] arteries of extremities with intermittent claudication, bilateral legs (ICD-10 - I70.213) 11/11/2024 Atherosclerosis of [place] arteries of extremities with intermittent claudication, bilateral legs (ICD-10 - I70.213) 01/20/2025 Atherosclerosis of [place] arteries of extremities with intermittent claudication, bilateral legs (ICD-10 - I70.213) Check and protect LE bilateral daily. Call if any changes or concerns. 04/07/2025 Atherosclerosis of [place] arteries of extremities with intermittent claudication, bilateral legs (ICD-10 - I70.213) Check and protect LE bilateral daily. Call if any changes or concerns. 06/09/2025 Atherosclerosis of [place] arteries of extremities with intermittent claudication, bilateral [...] Details Provider Name:BOGDAN REEVES, 08/18/2025 11:10:00 AM, [address] [place] [address], [id number], Insurance Providers Payer Name Payer Address Payer Phone Subscriber Number Group Number Insured Name Patient Relationship to Insured Coverage Start Date Coverage End Date Medicare Part B [place] [address] [place] [address] [id number] BRENDA WILSON Self - patient is the insured [facility] [address] [place] [address] [id number] BRENDA WILSON Self - patient is the insured 5
--- OUTSIDE RECORDS SUMMARY | 2025-08-16 22:02 | XMS_ITS | Clinical Summary ---
Author Organization [facility] Address [address] [place] [address] Care Team Providers Care Reactor Fueling Supervisor Name Role Phone Casa Encarnacion MD Primary Care Provider Source Comments [facility],non-owned Affiliates and Associated Physician Practices is amultiple site organization consisting of ambulatory clinics and hospital sitesin [place], [place], [place] and [place]. This disclosure is being madepursuant to the Care Everywhere program and may not contain all information available regarding this patient. Last updated 18.[facility] Allergies Active Allergy Reactions Criticality Noted Date [...] be different from the original. Patient uses [employer]. 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 Gender Identity Not on file Sexual Orientation Not on file Last Filed Vital Signs Vital Sign Reading Time Taken Comments Blood Pressure 112/60 05/24/2025 1:36 PM CDT Pulse 62 11/05/2016 8:34 AM APPLIANCE LINE ASSEMBLER Temperature 36.5 C (97.7 F) 05/24/2025 1:36 [...] Description 05/30/2026 2:00 PM CDT Office Visit [facility] - [facility] [address] [place] [address] Aye Dao MD [address] [facility] [address] [place] [address] Health Maintenance Due Date Last Done Comments BONE DENSITY TESTING 1935 MEDICARE AWV 12 MONTHS 1935 DTAP/TDAP/TD VACCINES (1 - Tdap) 02/23/1956 ZOSTER VACCINE (1 of 2) 1987 PNEUMOCOCCAL VACCINE 50+ (2 of 2 - PCV20 or PCV21) 09/08/2010 09/08/2009 Respiratory Syncytial Virus (RSV) Vaccine Pt: or over 60 yrs (1 - 1-dose 75+ series) 02/23/2012 COVID-19 VACCINE ( - season) 2025 06/30/2022, 07/04/2021, 11/03/2020, Additional history [...] age to complete this topic Insurance MEDICARE [facility] * Guarantor: BRENDA WILSON Account Type Relation to Patient Date of Phone Billing Address Personal/Family [place] [address] MEDICARE Member Subscriber Plan / Payer (Ef fective for All Dates) Name:Ana MaríaJoemansoor Jimenez Member ID:[id number] Relation to Subscriber:Self Name:Brenda Wilson Subscriber ID:[id number] Payer ID:Not on file Group ID:Not on file Type:Medicare Address: [place] [id number] [employer] * Guarantor: BRENDA WILSON Account Type Relation to Patient Date of Phone Billing Address [place] [address] MEDICARE MEDICARE SUPPLEMENT PAYOR GENERIC * Guarantor: BRENDA WILSON Account Type Relation to Patient Date of Phone Billing Address [place] [address] Care Teams Reactor Fueling Supervisor Relationship Specialty Start Date End Date Casa Encarnacion MD PCP - General 12/12/15
--- OUTSIDE RECORDS SUMMARY | 2025-08-16 22:02 | XMS_ITS | Clinical Summary ---
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 Gender Identity Not on file Sexual Orientation Not on file Occupation Industry Job Start Date Job End Date retired Not on file Not on file Not on file Last Filed Vital Signs Vital Sign Reading Time Taken Comments Blood Pressure 140/82 11/08/2015 3:33 PM VIBRATORY PILE DRIVER Pulse - - Temperature - - Respiratory Rate - - Oxygen Saturation - - Inhaled Oxygen Concentration - - Weight 59 kg (130 lb) 11/08/2015 3:33 PM VIBRATORY PILE DRIVER Height 167.6 cm (5' 6) 11/08/2015 3:33 PM VIBRATORY PILE DRIVER Body Mass Index 20.98 11/08/2015 3:33 PM VIBRATORY PILE DRIVER Plan of Treatment Health Maintenance Due Date [...] PART A AND B CIGNA MCR SUPP Care Teams Child Care Associate Teacher Relationship Specialty Start Date End Date Casa Encarnacion MD [address] [place] [id number] PCP - General Internal Medicine 10/12/14
[2025-08-16 22:12] VITALS: BP 151/73; PULSE 58; RESP 16; TEMP 37.1; O2SAT 96
--- NOTE | 2025-08-16 22:15 | ED.FALL ---
HPI - Fall General Chief Complaint: Fall Stated Complaint: FALL/RIB PAIN Time Seen by Provider: 08/16/25 22:02 History of Present Illness HPI Narrative: 89-year-old white female with history of hypertension, hypercholesterolemia, occasional fall, was in the bathroom tonight, and while she was at the sink, her sister started to come in, the door struck her and knocked her over, she landed against cap the cabinet or tub with the left chest, reports pain in the left chest. She denies hitting her head, denies pain in her neck or back, denies abdominal pain, denies any shoulder hip or extremity pain. It does hurt to cough, hurts to take a deep breath, hurts to move her left arm Related Data Home Medications ?Medication ?Instructions ?Recorded ?Confirmed ?Last Taken ?Type gabapentin 300 mg capsule See Rx Instructions .Route .COMPLEX 01/26/20 07/07/25 02/24/24 History (Neurontin) metoprolol tartrate 25 mg tablet 25 mg PO BID 01/26/20 07/07/25 02/24/24 History aspirin 81 mg tablet,delayed 81 mg PO DAILY 11/22/20 07/07/25 02/17/24 History release (Adult Low Dose Aspirin) atorvastatin 20 mg tablet 20 mg PO DAILY 11/22/20 07/07/25 Unknown History cyanocobalamin (vitamin B-12) 1,000 mcg PO DAILY 11/22/20 07/07/25 Unknown History 1,000 mcg capsule lisinopril 2.5 mg tablet 2.5 mg PO DAILY 11/22/20 07/07/25 Unknown History Probiotic 1 tab-cap PO DAILY 02/11/24 07/07/25 Unknown History methenamine hippurate 1 gram tablet 0.5 g PO DAILY 02/11/24 07/07/25 02/24/24 History vit C 250 mg-vit E 90 mg-zinc 40 1 tablet PO BID 02/11/24 07/07/25 Unknown History mg-copper 1 [id number] capsule (PreserVision AREDS-2) ergocalciferol (vitamin D2) 1,250 1,250 mcg PO WEEKLY 07/07/25 07/07/25 Unknown History mcg (50,000 unit) capsule (Vitamin D2) estradiol 10 mg implant pellet mg subcut 07/07/25 07/07/25 Unknown History Allergies Allergy/AdvReac Type Severity Reaction Status Date / Time No Known Allergies Allergy Verified 08/16/25 22:07 Review of Systems Review of Systems: ROS is negative except as in HPI [facility] Past Medical History Medical History Chest pain Cerebral infarction Occlusion and stenosis of bilateral carotid arteries Low back pain Personal history UTI Postmenopausal atrophic vaginitis Personal history of colonic polyps Age-related osteoporosis without current pathological fracture Mixed irritable bowel syndrome GERD (gastroesophageal reflux disease) Vitamin D deficiency, unspecified Dysthymic disorder Mixed hyperlipidemia Thoracic aortic aneurysm without rupture Nonrheumatic aortic (valve) stenosis Insomnia due to other mental disorder HTN (hypertension) Surgical History Surgical History History of colon resection History of hysterectomy History of colonoscopy Family History Family History (Updated 07/07/25 @ 09:15 by Hui Lovell CMA) Father Cerebrovascular accident Social History Social History (Updated 07/07/25 @ 09:10 by Adelaida Salvador CMA) Smoking status: Never smoker Second hand tobacco smoke exposure: No Alcohol intake: never Substance use: never Substance use type: does not use Lack of Transportation: No Lack of Food: Never True Current Housing: I Have Housing Concerned About Future Housing: No Difficulty Paying Gas/Electric Bills: No Difficulty Paying for Meds: No Currently Unemployed: No Education: High School Diploma/GED Difficulty w/ Childcare or Family Care: No Living arrangements: with family Additional living arrangements comments: LIVES WITH YOUNGEST DAUGHTER - TROY Gender identity (if verbalized by the patient): Female Spiritual care concerns: No Exam Narrative: pleasant, well-appearing, well oriented, looks younger than his stated age, articulate, good historian, no acute distress Const: General: cooperative, healthy appearing, comfortable, no acute distress, well developed, alert, awake and Physically active Orientation/consciousness: patient oriented x3 HENMT: Head: normal to inspection, normocephalic and atraumatic Ears: hearing grossly normal bilaterally and external ears normal Face/Nose/Sinus: Normal external nose present, Normal nares present, Normal nasal mucous membranes and turbinates present and normal facial exam Face and sinus: normal facial exam Mouth: Yes Normal oral and palatal mucosa present, Yes lip normal, Yes tongue normal, Yes oropharynx normal and Yes moist mucous membranes Teeth and gingiva: dentition normal Throat: posterior oropharynx normal and tonsils normal ( erythematous) Eyes: General: appearance normal, both eyes and all related structures Alignment and Position: alignment normal and position normal Periorbital: periorbital findings normal Eyelids: eyelids normal Conjunctivae: conjunctivae normal Sclera: sclerae normal Cornea: corneas normal Pupils: Equal, round and reactive pupils present EOM: EOMs intact bilaterally Neck: Neck: normal visual inspection, full ROM and no lymphadenopathy Chest: Chest palpation & inspection: abnormal inspection of the chest and tenderness Other: Patient has marked tenderness on palpation of low left posterior lateral ribs around levels 4 through 8 without crepitance, but there is significant point tenderness Resp: Effort & Inspection: normal respiratory effort, able to speak in complete sentences, no audible wheezes, no respiratory distress and no use of accessory muscles Auscultation: clear to auscultation bilaterally Cardio: Jugular venous distension: no JVD Rate: regular rate Rhythm: regular rhythm GI: Inspection: normal to inspection GI Palp: No abdominal tenderness, No Tenderness to palpation present (GI), No Guarding due to palpation present (GI), No No hepatosplenomegaly present, No Palpable mass present and No Rebound tenderness present Skin: General skin exam: normal color, no rashes or lesions noted, elasticity normal and turgor normal Neuro: General: patient oriented x3, gait normal, tone normal and moves all extremities Cranial nerves: Yes CN's II-XII intact bilaterally, Yes Equal, round and reactive pupils present and Yes Bilaterally intact EOM present Speech: normal speech Motor exam (neuro): 5/5 motor strength present throughout and Normal motor muscle tone present throughout Sensory Exam: normal sensation Extrem: General: normal to inspection, normal exam except as noted and no pedal edema Psych: Appearance: grossly normal and well kempt Mental Status: mental status grossly normal Speech and movement: Normal speech and movement present Affect: normal affect Attitude: cooperative Thought process: Normal thought process present Course Course Emergency Course: Patient had a mechanical fall secondary to her sister accidentally knocking her over. She landed hard against her left chest, in her exam is consistent with rib fractures, will get left rib details. Left rib details are consistent with 3 or 4 fractures, at 89 years old, she is somewhat frail, at high risk of complication, will go ahead get a noncontrast CT to get additional information as to how significant the rib fractures are, how many, to make sure there is no pneumo or hemothorax. Patient may need admission for pain control although she is tolerating it quite well, and may be able to be managed at home with frequent follow-ups with her PCP. Will reassess following CT CT scan shows left posterior lateral rib fractures, total of 5, and there is a very tiny pneumo, and there was a very small amount of hemothorax. Ribs 5, 7, 8, 9, 10 are all fractured. I discussed these findings with the patient and her family, explained she will need admission and a higher level of care where she may be able to receive rib blocks, and if she deteriorates may need chest tube, and may need a rehab stay. They would like to start with [facility] as the patient's niece works, than [facility], elbow more ill, [facility], or anywhere else were able to find. I have ordered CBC, CMP, INR, UA She is not on a blood thinner 11:30 p.m. Call placed to [facility] transfer nurse. They are at capacity. [facility] is at capacity 11:40 p.m. call [facility] transfer line, [facility] and [facility] refered to geriatric trauma at [place] [address] 5:00 p.m. discussed with [facility] ED attending, Dr. Salazar accepts patient as a geriatric trauma to the ED, Will go by ALS Medical decision making complexity and risk was high with labs, x-rays, CT scan all utilized, high risk fall, multiple rib injuries, pneumothorax and hemothorax identified, arranged transfer to Trauma Center Critical care time 40 minutes. Vital Signs Vital signs: Vital Signs Temperature 37.1 C 08/16/25 22:12 Pulse Rate 58 L 08/16/25 22:12 Respiratory Rate 16 08/16/25 22:12 Blood Pressure 151/73 H 08/16/25 22:12 Pulse Oximetry 96 08/16/25 22:12 Oxygen Delivery Room Air 08/16/25 22:12 Temperature 37.1 C 08/16/25 22:12 Pulse Rate 58 L 08/16/25 22:12 Respiratory Rate 16 08/16/25 22:12 Blood Pressure 115/59 L 08/17/25 00:43 Pulse Oximetry 88 L 08/17/25 00:43 Oxygen Delivery Room Air 08/16/25 22:12 MDM Differential Diagnosis Differential Diagnosis: Differential diagnosis is in ED course Lab Data 08/16/25 23:55 08/16/25 23:55 Labs: Lab Results 08/16/25 Range/Units 23:55 WBC 15.0 H (4.8-10.8) K/mm3 RBC 3.54 L (4.20-5.40) M/mm3 Hgb 10.5 L (11.7-13.8) g/dL Hct 33.3 L (35.0-42.0) % MCV 94.1 (78.0-102.0) fL MCH 29.7 (27.0-31.0) pg MCHC 31.5 L (32-36) g/dL RDW 13.8 (11.6-14.4) % Plt Count 206 (150-420) K/mm3 MPV 11.0 (9.2-11.8) fl Immature Gran % (Auto) 0.5 H (0.0-0.0) % Neut % (Auto) 84.4 H (50.0-70.0) % Lymph % (Auto) 8.1 L (18.0-42.0) % [place] % (Auto) 5.5 (2.0-11.0) % Eos % (Auto) 1.3 (1.0-6.0) % Baso % (Auto) 0.2 (0.0-1.0) % Lymph # (Auto) 1.22 (1.10-4.50) K/mm3 [place] # (Auto) 0.83 (0.10-0.90) K/mm3 Eos # (Auto) 0.20 (0.02-0.50) K/mm3 Baso # (Auto) 0.03 (0.00-0.10) K/mm3 Abs Immat Gran (auto) 0.08 H (0.00-0.00) K/mm3 Absolute Neuts (auto) 12.63 H (1.70-7.20) K/mm3 Absolute Nucleated RBC 0.00 (0.00-0.00) K/mm3 Nucleated RBC % 0.0 (0-0.0) % PT 10.9 (9.50-12.1) Seconds INR 1.0 APTT 22.0 L (23.9-30.70) Sec Sodium 144 (137-145) mmol/L Potassium 3.2 L (3.4-5.0) mmol/L Chloride 108 H (98-107) mmol/L Carbon Dioxide 30 (22-30) mmol/L Anion Gap 6 (4-12) mmol/L BUN 19 H (7-17) mg/dL Creatinine 0.93 (0.7-1.0) mg/dL Estim Creat Clear Calc 34 ml/min Estimated GFR 57 L (59 - ) Glucose 116 H (65-110) mg/dL Calculated Osmolality 301 H (285-295) mOsm/kg Calcium 10.7 H (8.4-10.2) mg/dL Total Bilirubin 0.2 (0.2-1.3) mg/dL AST 34 (14-36) U/L ALT 22 (6-35) U/L Alkaline Phosphatase 69 (38-126) U/L Total Protein 5.8 L (6.3-8.2) g/dL Albumin 3.8 (3.5-5.1) g/dL Imaging Data Radiologist's impression: ITS Impressions Ribs w/Chest X-Ray 08/17/25 08:02 IMPRESSION: Multiple rib fractures with fluid accumulation in the left hemithorax and consolidative appearing changes possibly representing contusion. See chest CT report same date. Chest CT 08/17/25 08:04 IMPRESSION: Multiple left-sided rib fractures with small pneumothorax. Probable small hemothorax and lung contusion. There is also moderately severe infiltrative changes, emphysematous changes and hematoma formation along the left lateral chest wall. NOTE: Preliminary radiology report provided by [facility] radiologist/physician. Discharge Plan Discharge Clinical Impression: Hemothorax Accidental fall Qualifiers: Encounter type: initial encounter Qualified Code(s): W19.XXXA - Unspecified fall, initial encounter Multiple fractures of ribs Qualifiers: Encounter type: initial encounter Fracture type: closed Laterality: left Qualified Code(s): S22.42XA - Multiple fractures of ribs, left side, initial encounter for closed fracture Pneumothorax Qualifiers: Pneumothorax type: traumatic Encounter type: initial encounter Qualified Code(s): S27.0XXA - Traumatic pneumothorax, initial encounter Patient Disposition: Acute Care Hospital Condition: Stable Patient Language: Puerto Rican Prescriptions: No Action gabapentin [Neurontin] 300 mg capsule See Rx Instructions .ROUTE .COMPLEX Rx Instructions: 1 TAB IN THE AM, 1 TAB @ NOON AND 3 TAB @ HS metoprolol tartrate 25 mg tablet 25 mg PO BID aspirin [Adult Low Dose Aspirin] 81 mg tablet,delayed release (DR/EC) 81 mg PO DAILY cyanocobalamin (vitamin B-12) 1,000 mcg capsule 1,000 mcg PO DAILY atorvastatin 20 mg tablet 20 mg PO DAILY lisinopril 2.5 mg tablet 2.5 mg PO DAILY ergocalciferol (vitamin D2) [Vitamin D2] 1,250 mcg (50,000 unit) capsule 1,250 mcg PO WEEKLY estradiol 10 mg pellet subcut methenamine hippurate 1 gram Tablet 0.5 g PO DAILY PreserVision AREDS-2 250-90-40-1 mg Capsule 1 tablet PO BID Probiotic 1 tab-cap PO DAILY Follow-up/Referrals: Casa Encarnacion MD [Primary Care Provider, Internal Medicine]
[2025-08-17 00:11] LABS: Hematocrit 33.3 % (35.0-42.0); Hemoglobin 10.5 g/dL (11.7-13.8); Immature Granulocyte Percent A 0.5 % (0.0-0.0); Lymphocytes Absolute Auto 1.22 K/mm3 (1.10-4.50); Mean Corpuscular HGB Conc 31.5 g/dL (32-36); Mean Corpuscular Hemoglobin 29.7 pg (27.0-31.0); Mean Corpuscular Volume 94.1 fL (78.0-102.0); Nucleated Red Blood Cells Absolute Auto 0.00 K/mm3 (0.00-0.00); Nucleated Red Blood Cells Perc 0.0 % (0-0.0); Platelet Count Result 206 K/mm3 (150-420); Red Blood Count 3.54 M/mm3 (4.20-5.40); White Blood Count 15.0 K/mm3 (4.8-10.8)
[2025-08-17 00:27] LABS: INR 1.0; Partial Thromboplastin Time 22.0 Sec (23.9-30.70); Prothrombin Time 10.9 Seconds (9.50-12.1)
[2025-08-17] MEDS: ONDANSETRON INJ 4 MG/2 ML VIAL IV PUSH (00:28)
[2025-08-17] MEDS: MORPHINE SULFATE (*CRX) 2 MG/ML INJ IV PUSH (00:28)
[2025-08-17 00:34] LABS: Alanine Aminotransferase 22 U/L (6-35); Albumin Level 3.8 g/dL (3.5-5.1); Alkaline Phosphatase 69 U/L (38-126); Anion Gap 6 mmol/L (4-12); Aspartate Amino Transferase 34 U/L (14-36); Bilirubin,Total 0.2 mg/dL (0.2-1.3); Blood Urea Nitrogen 19 mg/dL (7-17); Calcium 10.7 mg/dL (8.4-10.2); Carbon Dioxide 30 mmol/L (22-30); Chloride 108 mmol/L (98-107); Estimated CRCL calculation 34 ml/min; Estimated Glomerular Filt Rate 57; Glucose 116 mg/dL (65-110); Osmolality Calculated 301 mOsm/kg (285-295); Potassium 3.2 mmol/L (3.4-5.0); Sodium 144 mmol/L (137-145); Total Protein 5.8 g/dL (6.3-8.2)
--- NOTE | 2025-08-17 00:38 | PC.NURSE ---
Contact pt's daughters: Yanira AlfredoBowen ; Kim Ana María
--- NOTE | 2025-08-17 00:40 | PC.NURSE ---
ERP aware of pt's vital signs. No new orders.
[2025-08-17 00:43] VITALS: BP 115/59; O2SAT 88
== END 2025-08-17 00:45 | disposition short-term general hospital (02) ==
PROVIDERS: Emergency Provider Emergency Medicine; PCP Internal Medicine
DX: J94.2 Hemothorax (principal); S22.42XA Multiple fractures of ribs, left side, initial encounter for closed fracture; S27.0XXA Traumatic pneumothorax, initial encounter; I10 Essential (primary) hypertension; E78.2 Mixed hyperlipidemia; W18.39XA Other fall on same level, initial encounter
CPT/HCPCS: 36415; 71101; 71250; 80053; 85025; 85610; 85730; 96374; 96375; 99284; J2270; J2405